=== PATIENT | male | born 1945 | race Caucasian/White ===

== ENCOUNTER 2016-08-31 11:01 | Inpatient (IN) | payer MEDICARE ==
[~2016-08-31] VITALS: Ht 165.1 cm; Wt 102.0 kg
[2016-08-31] VITALS (12 sets, daily range): BP systolic 98–155; BP diastolic 54–88; PULSE 94–105; RESP 18–24; TEMP 97.8–99.1; O2SAT 85–96
[~2016-08-31 11:01] MED LIST: ALBU1AER INH; CARB0.5D16 OU; CITA-48 PO; DOCU100T9 PO; ECOT325T PO; ENOX40P SQ; FISH1000 PO; GEMF600T PO; GLUCTAB PO; GLYB1TAB51 PO; HYDR1CAP30 PO; LEVO.05 PO; LISI-357 PO; LORT5TAB PO; NOVOLOGP2 SC; NOVONP2 SQ; OMEP20TA PO; PREG100 PO; RISP3 PO; TAB-TAB PO; TRAZ50TA4 PO; VITA400C58 PO
[2016-08-31] MEDS ORDERED: SODIUM CHLOR 0.9% 1000 ML INJ 1,000 ML IV ONE (11:15)
[2016-08-31] MEDS ORDERED: methylPREDNISolone SOD SUCC 125 MG/2 ML VIAL IVP ONE (11:15)
[2016-08-31 11:46] LABS: AUTOMATED NEUTROPHIL # 7.1 TH/MM3 (1.8-7.7); BASOPHIL % 0.4 % (0.0-2.0); EOSINOPHIL # 0.1 TH/MM3 (0-0.4); EOSINOPHIL % 0.6 % (0.0-4.0); HEMATOCRIT 34.7 % (39.0-51.0); LYMPH % 8.6 % (9.0-44.0); LYMPHOCYTE # 0.7 TH/MM3 (1.0-4.8); MEAN CELL VOLUME 83.9 FL (80.0-100.0); MEAN CORPUSCULAR HEMOGLOBIN 27.8 PG (27.0-34.0); MEAN CORPUSCULAR HGB CONC 33.2 % (32.0-36.0); MONO % 7.1 % (0.0-8.0); NEUT % 83.3 % (16.0-70.0); PLATELET COUNT 98 TH/MM3 (150-450); RED BLOOD COUNT 4.13 MIL/MM3 (4.50-5.90); RED CELL DISTRIBUTION WIDTH 16.4 % (11.6-17.2); WHITE BLOOD COUNT 8.5 TH/MM3 (4.0-11.0)
[2016-08-31 11:49] LABS: HEMO FLAGS AUTO DIFF
[2016-08-31] MEDS ORDERED: OMEP20CA2 (11:51)
[2016-08-31] MEDS ORDERED: MELO-1 PO (11:51)
[2016-08-31] MEDS ORDERED: CHOLCRY (11:51)
[2016-08-31] MEDS ORDERED: SERT-129 PO (11:51)
[2016-08-31] MEDS ORDERED: NOVONP2 SQ (11:51)
[2016-08-31] MEDS ORDERED: NOVOLOGP2 SQ (11:51)
[2016-08-31] MEDS ORDERED: ASPI-110 PO (11:51)
[2016-08-31] MEDS ORDERED: LYRI150C PO (11:51)
[2016-08-31] MEDS ORDERED: LEVO50TA4 PO (11:51)
[2016-08-31] MEDS ORDERED: BUSP10TA PO (11:51)
[2016-08-31] MEDS ORDERED: GLUC4CHW CHEW (11:51)
[2016-08-31] MEDS ORDERED: METF500T4 PO (11:51)
[2016-08-31] MEDS ORDERED: PRIM50TA5 PO (11:51)
[2016-08-31] MEDS ORDERED: DIAZ5TAB PO (11:51)
[2016-08-31] MEDS ORDERED: PRAV40TA2 PO (11:51)
[2016-08-31] MEDS ORDERED: LOSA50TA PO (11:51)
[2016-08-31] MEDS ORDERED: TRAZ100T4 PO (11:51)
[2016-08-31 11:56] LABS: APTT (PATIENT) 29.3 SEC (24.3-30.1); INTERNATIONAL NORMALIZED RATIO 1.1 RATIO
[2016-08-31 12:08] LABS: ALKALINE PHOSPHATASE 154 U/L (45-117); ALT (GPT) 35 U/L (12-78); ANION GAP 10 MEQ/L (5-15); AST (GOT) 54 U/L (15-37); BETA-HYDROXYBUTYRATE 0.13 MMOL/L (0.00-0.39); BICARBONATE 24.7 MEQ/L (21.0-32.0); BLOOD UREA NITROGEN 26 MG/DL (7-18); CHLORIDE 93 MEQ/L (98-107); CREATINE KINASE 126 U/L (39-308); GLOMERULAR FILTRATION RATE 54 ML/MIN (>89); POTASSIUM 4.9 MEQ/L (3.5-5.1); SODIUM (NA) 128 MEQ/L (136-145); TOTAL BILIRUBIN ADULT 0.7 MG/DL (0.2-1.0)
[2016-08-31] MEDS ORDERED: AZITHROMYCIN INJ 500 MG in SODIUM CHLOR 0.9% 250 ML INJ 250 ML IV STA (12:11)
[2016-08-31] MEDS ORDERED: CEFEPIME INJ 2,000 MG in SODIUM CHLORIDE 0.9% INJ 100 ML IV STA (12:11)
--- NOTE | 2016-08-31 12:13 | RADRPT ---
EXAM DATE/TIME: 08/31/2016 11:32 [place] COMPARISON: CHEST PA & LAT, June 28, 2012, 10:45. INDICATIONS : Short of breath MEDICAL HISTORY : Chronic obstructive pulmonary disease. leaking heart valve SURGICAL HISTORY : None. ENCOUNTER: Initial ACUITY: 1 day PAIN SCORE: Non-responsive. LOCATION: Bilateral chest FINDINGS: A single view of the chest demonstrates interstitial and patchy bibasilar alveolar opacities. Heart n ormal in size. The cardiomediastinal contours are unremarkable. Osseous structures are intact. CONCLUSION: Interstitial and bibasilar patchy alveolar opacities, could be pneumonia. Treatment and followup brandt mmended. Cameron Archer MD on August 31, 2016 at 12:10 Board Certified Radiologist. This report was verified electronically.
[2016-08-31 12:17] LABS: PLATELET ESTIMATE SMEAR LOW (NORMAL); PLATELET MORPHOLOGY NORMAL (NORMAL)
[2016-08-31 12:18] LABS: SCAN/DIFF AUTO DIFF CONFIRMED
--- NOTE | 2016-08-31 12:23 | PD ---
HPI Chief Complaint: Respiratory Distress Time Seen by Provider: 11:14 Travel History International Travel<30 days: No Contact w/Intl Traveler<30days: No Traveled to known affect area: No History of Present Illness HPI 71 y/o male presents with difficulty breathing over the past 5 days. He states it got worse today so he elected to come in. He states he does not wear oxygen at home. He states that he does have COPD but his breathing treatments have not helped him. He states that he had feelings of the fever last night but did not check his temperature. He denies other specific complaints. Quality is short of breath. Severity is progressively worsening. Duration is 5 days. His family is at bedside and help supplement history. He follows through the OR. [facility] Past Medical History Arthritis: Yes Anxiety: Yes Depression: Yes Heart Rhythm Problems: No Cancer: No Cardiovascular Problems: Yes High Cholesterol: Yes COPD: Yes Diabetes: Yes Patient Takes Glucophage: Yes Endocrine: Yes GERD: Yes Genitourinary: No Hypertension: Yes Immune Disorder: No Musculoskeletal: Yes Neurologic: Yes Psychiatric: Yes (CLAUSTROPHOBIA) Reproductive: No Respiratory: Yes Thyroid Disease: Yes Past Surgical History Joint Replacement: Yes (LAURA KNEES) Pacemaker: No Other Surgery: Yes Social History Alcohol Use: No Tobacco Use: No Substance Use: No Allergies-Medications (Allergen,Severity, Reaction): Coded Allergies: Niacin (Unverified Allergy, Severe, GENERALIZED BURNING AND ITCHING, ) Reported Meds & Prescriptions Reported Meds & Active Scripts Active Reported Trazodone (Trazodone HCl) 100 Mg Tab 100 Mg PO HS Sertraline (Sertraline HCl) 100 Mg Tab 100 Mg PO DAILY Primidone 50 Mg Tab 100 Mg PO TID Lyrica (Pregabalin) 150 Mg Cap 150 Mg PO BID Pravastatin 40 Mg Tab 40 Mg PO DAILY Omeprazole 20 Mg Cap Metformin ER (Metformin HCl) 500 Mg Jose Alfredo 500 Mg PO DAILY With evening meal Meloxicam 15 Mg Tab 15 Mg PO DAILY Losartan (Losartan Potassium) 50 Mg Tab 50 Mg PO DAILY Levothyroxine (Levothyroxine Sodium) 50 Mcg Tab 50 Mcg PO DAILY Novolog Inj (Insulin Aspart) 1,000 Unit/10 Ml Vial 5-25 Units SQ ACHS Max dose at bedtime:( )units; sugars less than 70,(0) units; sugars 150-199,(5) units; sugars 200-249,(10) units; sugars 250-299,(15) units; sugars 300-349,(20)units; sugars greater than 349,(25)units Novolin N Inj (Insulin Human NPH) 1,000 Unit/10 Ml Vial 0 SQ DIRECTED Sliding Scale As Directed. Glucose (Dextrose) 4 Gm Chew 4 Gm CHEW DIRECTED Cholecalciferol (Cholecalciferol (Bulk)) 1 Cry Cry Buspirone (Buspirone HCl) 10 Mg Tab 10 Mg PO BID Aspirin 81 (Aspirin) 81 Mg Tabdr 81 Mg PO DAILY Review of Systems Except as stated in HPI: all other systems reviewed are Neg Physical Exam Narrative GENERAL: Well-nourished, well-developed patient. SKIN: Warm and dry. HEAD: Normocephalic and atraumatic. EYES: No injection or drainage. ENT: No nasal drainage noted. NECK: Supple, trachea midline. CARDIOVASCULAR: Regular rate and rhythm RESPIRATORY: Decreased aeration bilaterally. No accessory muscle use. Talking in short sentences GASTROINTESTINAL: Abdomen soft, non-tender, nondistended. EXTREMITIES: No significant edema. NEUROLOGICAL: Awake and alert. Motor and sensory grossly within normal limits. Normal speech. Data Data Last Documented VS Vital Signs Date Time Temp Pulse Resp B/P Pulse Ox O2 Delivery O2 Flow Rate FiO2 08/31/16 12:40 96 Nasal Cannula 2.00 08/31/16 12:05 94 20 151/79 08/31/16 11:08 99.1 Orders Complete Blood Count With Diff (08/31/16 11:14) Comprehensive Metabolic Panel (08/31/16 11:14) B-Type Natriuretic Peptide (08/31/16 11:14) Act Partial Throm Time (Ptt) (08/31/16 11:14) Prothrombin Time / Inr (Pt) (08/31/16 11:14) Magnesium (Mg) (08/31/16 11:14) Ckmb (Isoenzyme) Profile (08/31/16 11:14) Troponin I (08/31/16 11:14) Influenzae A/B Antigen (08/31/16 11:14) Blood Culture (08/31/16 11:14) Iv Access Insert/Monitor (08/31/16 11:14) Electrocardiogram (08/31/16 11:14) Ecg Monitoring (08/31/16 11:14) Oximetry (08/31/16 11:14) Oxygen Administration (08/31/16 11:14) Chest, Single Ap (08/31/16 11:14) Sodium Chloride 0.9% Flush (Ns Flush) (08/31/16 11:15) Methylprednisolone So Succ Inj (Solumedr (08/31/16 11:15) Albuterol-Ipratropium Neb (Duoneb Neb) (08/31/16 11:15) Lactic Acid Sepsis Protocol (08/31/16 11:14) Sodium Chlor 0.9% 1000 Ml Inj (Ns 1000 M (08/31/16 11:15) Beta Hydroxybutyrate (Acetone) (08/31/16 11:14) Blood Glucose (08/31/16 11:14) Cefepime Inj (Maxipime Inj) (08/31/16 12:11) Azithromycin Inj (Zithromax Inj) (08/31/16 12:11) Urinalysis - C+S If Indicated (08/31/16 12:23) CKMB (08/31/16 11:24) CKMB% (08/31/16 11:24) Aspirin (Aspirin) (08/31/16 12:45) Heparin Infusion JARRED.Q1H (08/31/16 12:51) Heparin Inj (Heparin Inj) (08/31/16 13:00) Heparin Inj (Heparin Inj) (08/31/16 19:00) Heparin Inj (Heparin Inj) (08/31/16 19:00) Heparin-D5w Inj (Heparin-D5w Inj) (08/31/16 13:00) Cbc No Diff, Includes Plts (09/03/16 06:00) Act Partial Throm Time (Ptt) (08/31/16 19:51) Occult Blood (Hemoccult) Stool (08/31/16 12:51) Diet Npo (08/31/16 Lunch) Consult Cardiology (08/31/16 ) Admit Order (Ed Use Only) (08/31/16 13:11) Labs Laboratory Tests Test 08/31/16 11:24 White Blood Count 8.5 TH/MM3 Red Blood Count 4.13 MIL/MM3 Hemoglobin 11.5 GM/DL Hematocrit 34.7 % Mean Corpuscular Volume 83.9 FL Mean Corpuscular Hemoglobin 27.8 PG Mean Corpuscular Hemoglobin 33.2 % Concent Red Cell Distribution Width 16.4 % Platelet Count 98 TH/MM3 Mean Platelet Volume 9.1 FL Neutrophils (%) (Auto) 83.3 % Lymphocytes (%) (Auto) 8.6 % Monocytes (%) (Auto) 7.1 % Eosinophils (%) (Auto) 0.6 % Basophils (%) (Auto) 0.4 % Neutrophils # (Auto) 7.1 TH/MM3 Lymphocytes # (Auto) 0.7 TH/MM3 Monocytes # (Auto) 0.6 TH/MM3 Eosinophils # (Auto) 0.1 TH/MM3 Basophils # (Auto) 0.0 TH/MM3 CBC Comment AUTO DIFF Differential Comment AUTO DIFF CONFIRMED Platelet Estimate LOW Platelet Morphology Comment NORMAL Red Cell Morphology Comment NORMAL Prothrombin Time 12.0 SEC Prothromb Time International 1.1 RATIO Ratio Activated Partial 29.3 SEC Thromboplast Time Sodium Level 128 MEQ/L Potassium Level 4.9 MEQ/L Chloride Level 93 MEQ/L Carbon Dioxide Level 24.7 MEQ/L Anion Gap 10 MEQ/L Blood Urea Nitrogen 26 MG/DL Creatinine 1.32 MG/DL Estimat Glomerular Filtration 54 ML/MIN Rate Random Glucose 396 MG/DL Lactic Acid Level 3.6 mmol/L Calcium Level 8.8 MG/DL Magnesium Level 2.0 MG/DL Total Bilirubin 0.7 MG/DL Aspartate Amino Transf 54 U/L (AST/SGOT) Alanine Aminotransferase 35 U/L (ALT/SGPT) Alkaline Phosphatase 154 U/L Total Creatine Kinase 126 U/L Creatine Kinase MB 7.6 NG/ML Troponin I 1.40 NG/ML B-Type Natriuretic Peptide 551 PG/ML Total Protein 6.8 GM/DL Albumin 2.6 GM/DL B-Hydroxybutyrate 0.13 MMOL/L [facility] Medical Decision Making Medical Screen Exam Complete: Yes Emergency Medical Condition: Yes Medical Record Reviewed: Yes (past history confirmed) Interpretation(s) EKG shows mild elevation V2 without reciprocal changes or T-wave inversions CBC & BMP Diagram 08/31/16 11:24 Last 24 hours Impressions Chest X-Ray 08/31/16 1114 Signed Impressions: Service Date/Time: Wednesday, August 31, 2016 11:32 - CONCLUSION: Interstitial and bibasilar patchy alveolar opacities, could be pneumonia. Treatment and followup recommended. Cameron Archer MD Differential Diagnosis COPD exacerbation, sepsis, pneumonia, IA, PE, pneumothorax.... Narrative Course Will check blood work, chest x-ray, influenza and dose with DuoNeb's and Solu- Medrol and IV fluid hydration and reevaluate Lactate is elevated at 3.6. We'll initiate broad-spectrum coverage with cefepime and azithromycin for possible respiratory source while awaiting testing Went back in and updated family and patient about elevated troponin. Again he denies any chest pressure or chest pain today or during his symptoms over the past for 5 days. His states that he had a cardiac catheterization 2-1/2 years ago at [place] that was normal other than he needs a aortic valve replacement. They followed with Dr. malik but given he was not symptomatic they elected to monitor it, will dose with aspirin and discuss with cardiology patient agrees to admit Sepsis Criteria SIRS Criteria (2 or more): Heart rate over 90 Sepsis Criteria (SIRS+source): Infect source susp/known Severe Sepsis (+one): Lactate >2 Physician Communication Physician Communication dr rios reviewed ekg at 1247 and states given isolated in V2 without reciprocal changes or chest pain currently no STEMI criteria. Given troponin is elevated he likely will need catheter but not emergent. States to place on heparin and keep nothing by mouth and will follow resident team agrees to cic admit Diagnosis Primary Impression: NSTEMI (non-ST elevated myocardial infarction) Additional Impressions: Lactic acidosis Pneumonia Qualified Code: J18.9 - Pneumonia of both lungs due to infectious organism, unspecified part of lung Thrombocytopenia Hyponatremia Diabetes Qualified Code: E13.8 - Diabetes mellitus of other type with complication, unspecified long-term insulin use status Admitting Information Admitting Physician Requests: it Makenzie Hammond MD Aug 31, 2016 12:23
[2016-08-31 12:38] LABS: CKMB 7.6 NG/ML (0.5-3.6)
[2016-08-31] MEDS: RESP: ALBUTEROL 2.5 MG/IPRATROPIUM 0.5 MG NEB (SCH) INH (12:39)
[2016-08-31] MEDS ORDERED: ASPIRIN 325 MG TAB PO ONE (12:45)
[2016-08-31] MEDS ORDERED: HEPARIN-D5W INJ 250 ML IV SCH (13:00)
[2016-08-31] MEDS ORDERED: HEPARIN SODIUM - IV 10,000 UNITS/10 ML VIAL IV ONE (13:00)
[2016-08-31 13:29] LABS: LACTIC ACID GHOST NOT REPORTABLE
[2016-08-31] MEDS ORDERED: hydrALAZINE HCL 10 MG TAB PO PRN (13:45)
[2016-08-31] MEDS ORDERED: RESP: ALBUTEROL 2.5 MG/3 ML NEB (PRN) NEB (13:45)
[2016-08-31] MEDS ORDERED: ONDANSETRON HCL 4 MG/2 ML VIAL IV PRN (13:45)
--- NOTE | 2016-08-31 13:57 | HHI.HP ---
[facility] Service Family Medicine Primary Care Physician Non-Staff Admission Diagnosis nstemi, lactic acidosis Diagnoses: International Travel<30 Days: No Contact w/Intl Traveler<30days: No Known Affected Area: No History of Present Illness Mr. Gudino is a 71 year old male with a past medical history of hypertension , aortic valvular disease, anxiety, depression, and BPH that presents to the [place] ED with a chief complaint of shortness of breath of 5 days duration. The patient's and daughter were in the room and corroborated the history. The patient states that he felt very weak and could barely walk to the bathroom because he was so short of breath. He states that he also felt very hot, but did not measure his temperature at home. His gave him some old inhalers on Sunday 08/27, some Xanax on Monday 08/28, and some old diazepam medications every 4-5 hours, which calmed him down such that he was able to sleep. He finally agreed to come into the hospital today because he felt really short of breath. Associated symptoms include subjective fever, and cough which was nonproductive until Tuesday. He has also had a constant dry throat and some sweating but not at night. He denies chest pain, chills, headache, nausea, vomiting, diarrhea, and abdominal pain. His appetite has been poor since Tuesday and he has not eaten much. He has also had some muscle aches in his shoulders bilaterally. Patient denies any sick contacts and he did get the flu shot. (Rupali Eddy MD R1) Review of Systems Constitutional: DENIES: Diaphoretic episodes, Fever, Chills Ears, nose, mouth, throat: DENIES: Nasal discharge Respiratory: DENIES: Cough (nonproductive) Cardiovascular: DENIES: Chest pain Gastrointestinal: DENIES: Abdominal pain, Diarrhea, Nausea, Vomiting Genitourinary: DENIES: Dysuria Musculoskeletal: COMPLAINS OF: Muscle aches (shoulder pain) Integumentary: DENIES: Rash Neurologic: DENIES: Headache (Rupali Eddy MD R1) Past Family Social History Past Medical History -Hypertension -Diabetes -Aortic valvular disease -Anxiety and depression -BPH Past Surgical History -Bilateral knee surgery (Rupali Eddy MD R1) Allergies: Coded Allergies: Niacin (Unverified Allergy, Severe, GENERALIZED BURNING AND ITCHING, ) Family History Non-contributory Social History Denies smoking, alcohol, and drug use (Eko,Rupali U R1) Physical Exam Vital Signs Vital Signs Date Time Temp Pulse Resp B/P Pulse Ox O2 Delivery O2 Flow Rate FiO2 08/31/16 13:41 105 20 118/59 92 Nasal Cannula 3 08/31/16 12:40 96 Nasal Cannula 2.00 08/31/16 12:05 94 20 151/79 92 Nasal Cannula 2 08/31/16 11:18 93 Nasal Cannula 3 08/31/16 11:18 97 20 151/79 93 Nasal Cannula 3 08/31/16 11:12 91 3 08/31/16 11:08 99.1 101 20 100/62 93 08/31/16 11:04 98.7 100 20 98/54 85 Physical Exam GENERAL: This is a well-nourished, well-developed patient, in no apparent distress. SKIN: No rashes, ecchymoses or lesions. Cool and dry. Bilateral knee surgery scars HEAD: Atraumatic. Normocephalic. No temporal or scalp tenderness. EYES: Pupils equal round and reactive. Extraocular motions intact. No scleral icterus. No injection or drainage. ENT: Nose without bleeding, purulent drainage or septal hematoma. Throat without erythema, tonsillar hypertrophy or exudate. Uvula midline. Airway patent. Continuous lip smacking NECK: Trachea midline. No JVD or lymphadenopathy. Supple, nontender, no meningeal signs. CARDIOVASCULAR: Regular rate and rhythm, distant heart sounds RESPIRATORY: Clear to auscultation. Coarse breath sounds in bibasilar lung gallardo. Some mild wheezing in the anterior air gallardo GASTROINTESTINAL: Abdomen soft, obese, non-tender, nondistended. No guarding. MUSCULOSKELETAL: Extremities without clubbing, cyanosis, or edema. No joint tenderness, effusion, or edema noted. No calf tenderness. NEUROLOGICAL: Awake and alert. Cranial nerves grossly intact. Resting tremor, continuously moves left arm. Motor and sensory grossly within normal limits. Five out of 5 muscle strength in all muscle groups. Normal speech. Laboratory Laboratory Tests Test 08/31/16 11:24 White Blood Count 8.5 Red Blood Count 4.13 Hemoglobin 11.5 Hematocrit 34.7 Mean Corpuscular Volume 83.9 Mean Corpuscular Hemoglobin 27.8 Mean Corpuscular Hemoglobin 33.2 Concent Red Cell Distribution Width 16.4 Platelet Count 98 Mean Platelet Volume 9.1 Neutrophils (%) (Auto) 83.3 Lymphocytes (%) (Auto) 8.6 Monocytes (%) (Auto) 7.1 Eosinophils (%) (Auto) 0.6 Basophils (%) (Auto) 0.4 Neutrophils # (Auto) 7.1 Lymphocytes # (Auto) 0.7 Monocytes # (Auto) 0.6 Eosinophils # (Auto) 0.1 Basophils # (Auto) 0.0 CBC Comment AUTO DIFF Differential Comment AUTO DIFF CONFIRMED Platelet Estimate LOW Platelet Morphology Comment NORMAL Red Cell Morphology Comment NORMAL Prothrombin Time 12.0 Prothromb Time International 1.1 Ratio Activated Partial 29.3 Thromboplast Time Sodium Level 128 Potassium Level 4.9 Chloride Level 93 Carbon Dioxide Level 24.7 Anion Gap 10 Blood Urea Nitrogen 26 Creatinine 1.32 Estimat Glomerular Filtration 54 Rate Random Glucose 396 Lactic Acid Level 3.6 Calcium Level 8.8 Magnesium Level 2.0 Total Bilirubin 0.7 Aspartate Amino Transf 54 (AST/SGOT) Alanine Aminotransferase 35 (ALT/SGPT) Alkaline Phosphatase 154 Total Creatine Kinase 126 Creatine Kinase MB 7.6 Troponin I 1.40 B-Type Natriuretic Peptide 551 Total Protein 6.8 Albumin 2.6 B-Hydroxybutyrate 0.13 Date/Time Procedure Status Source Growth 08/31/16 11:30 Aerobic Blood Culture Received Blood Peripheral Pending 08/31/16 11:30 Anaerobic Blood Culture Received Blood Peripheral Pending 08/31/16 11:24 Influenza Types A,B Antigen (CASSIDY) - Final Complete Nasal Aspirate NEGATIVE FOR FLU A AND B ANTIGEN.... (Rupali Eddy MD R1) Result Diagram: 08/31/16 1124 08/31/16 1124 Imaging Last Impressions Chest X-Ray 08/31/16 1114 Signed Impressions: Service Date/Time: Wednesday, August 31, 2016 11:32 - CONCLUSION: Interstitial and bibasilar patchy alveolar opacities, could be pneumonia. Treatment and followup recommended. Cameron Archer MD Course Patient received 1 L normal saline bolus, 1 dose of IV Solu-Medrol, one dose of cefotaxime IV and one dose of azithromycin IV in the ED. Chest x-ray was performed. EKG was performed with troponin. Due to elevated troponin, cardiology was consulted. (Rupali Eddy MD R1) Septic Shock Reassessment Heart: Regular rate and rhythm Lungs: Clear Skin: Warm (Rupali Eddy MD R1) Assessment and Plan Assessment and Plan Patient is a 71-year-old male that presents with a 5 day history of shortness of breath and nonproductive cough. Differential diagnosis includes ACS, CHF exacerbation, and COPD exacerbation, sepsis. ACS rule out was performed in the ED and patient was found to have elevated troponin of 1.4 and elevated lactate of 3.6. Cardiology was consulted with recommendations to start him on heparin drip and keep him nothing by mouth for possible procedure in the a.m. Patient will be admitted to the [facility] where ACS rule out will be continued and patient will be treated with IV antibiotics. Code Status Full code Discussed Condition With Seen and examined with Dr. Perry, PGY 2. Discussed with Dr. Harris (Rupali Eddy MD R1) Attending Attestation The patient has been seen and examined. The chart and all resident notes have been reviewed. I agree that inpatient care is appropriate and that a two midnight stay is expected for the reasons documented in the resident history and physical. I have discussed this with the resident and certify the resident s order for inpatient admission. (She Harris MD) Problem List: (1) NSTEMI (non-ST elevated myocardial infarction) Status: Acute Plan: -EKG shows low voltage ST elevation in leads V1 and V2, with inverted T waves in aVL -Suspect demand ischemia in the setting of severe sepsis -We will trend EKG every 6 hours 2 -Troponin elevated at 1.40, will trend every 6 hours 2 -[facility], Dr. rios, I reviewed EKG at 1247 and states given isolated elevation in V2 without reciprocal changes or chest pain, currently no STEMI criteria. -Recommended to keep him nothing by mouth and trend troponins. Given that the troponin is elevated, he will most likely need heart catheterization but not emergently. -Patient is currently on a heparin drip -Nothing by mouth except meds -We will start low-dose carvedilol 3.125 mg PO in the a.m. -Continue pravastatin 40 mg by mouth daily -Nitroglycerin topical every 6 hours when necessary chest pain (2) Severe sepsis Status: Acute Plan: -Patient meets severe sepsis criteria with elevated lactic acid at 3.6 and pneumonia as a possible source -WBC not elevated at 8.5, afebrile on admission, pulse elevated at 100, O2 saturation 85% on room air -Chest x-ray shows inspissation and bibasilar patchy alveolar opacities, could be pneumonia -Activated the lactic acid protocol -Rocephin 1 g mg IV every 24 hours to start on 09/01, received one dose of cefepime today 08/31 -Azithromycin 500 mg by mouth every 24 hours to start on 09/01, received one dose of azithromycin 500 mg IV today 08/31 -NS @ 70 mls/hr -less than maintenance due to possible exacerbation of congestive heart failure -Blood cultures pending -Legionella and pneumococcal antigen pending (3) Pneumonia Status: Acute Plan: -Chest x-ray shows inspissation and bibasilar patchy alveolar opacities, could be pneumonia -Rocephin 1 g IV every 24 hours to start on 09/01, received one dose of cefepime today 08/31 -Azithromycin 500 mg by mouth every 24 hours to start on 09/01, received one dose of azithromycin 500 mg IV today 08/31 -Patient received 125 mg IV push methylprednisolone in the ED -We will continue methylprednisolone at 40 mg IV every 12 hours 3 doses -Switch to prednisone 40 mg by mouth daily on 09/02 -Legionella and pneumococcal antigen pending (4) CHF due to valvular disease Status: Acute Plan: -Patient reports history of aortic valvular disease that requires replacement -Patient delayed valvular replacements because did not want to deal with the [place] [facility] system -Cardiology consulted - will wait for recommendations regarding echo (5) PHILIPPE (acute kidney injury) Status: Acute (6) Diabetes Status: Acute Plan: -Patient uses NPH insulin at home -Blood glucose elevated at approximately 400 on admission -Will start patient on low NovoLog sliding scale insulin with Levemir long- acting insulin (7) COPD exacerbation Status: Acute Plan: -Patient reports [id number] history of smoking -Considering patient's shortness of breath, COPD exacerbation may complicate the picture -Albuterol nebulizer 2.5 mg every 4 hours scheduled for shortness of breath (8) Hyponatremia Status: Acute Plan: -Suspect hypovolemic hyponatremia -On fluids as above, will monitor (9) Hypertension Status: Acute Plan: -Last BP measured at 1341 on 1341 was 118/59 -Hold losartan 50 mg by mouth daily (10) Thrombocytopenia Status: Acute Plan: -Platelets 98 on admission, will monitor (11) Anxiety and depression Status: Acute Plan: -Continue home medications as follows: -Trazodone 100 mg by mouth daily -Sertraline 100 mg by mouth daily (12) BPH (benign prostatic hyperplasia) Status: Acute Plan: -History of BPH -Patient states history of using Flomax but not on current list of medications -Will consider starting Flomax if patient has symptoms (13) FEN/DVT PPX/GI PPX Status: Acute Plan: Fluids: NS @ 70 mls/hr Electrolytes: Will monitor and replace as needed Nutrition: Nothing by mouth except for meds pending possible cardiology procedure area DVT Prophylaxis: On heparin drip GI Prophylaxis: Protonix IV 40 mg daily AM Labs: CBC, CMP in the a.m. (Rupali Eddy MD R1) Physician Certification 2 Midnight Certification Type: Admission for Inpatient Services Order for Inpatient Services The services are ordered in accordance with Medicare regulations or non- Medicare payer requirements, as applicable. In the case of services not specified as inpatient-only, they are appropriately provided as inpatient services in accordance with the 2-midnight benchmark. Estimated LOS (days): 3 days is the estimated time the patient will need to remain in the hospital, assuming treatment plan goals are met and no additional complications. 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
[2016-08-31] MEDS ORDERED: GLUCAGON 1 MG/ML VIAL OTHER PRN (14:00)
[2016-08-31 14:02] LABS: BACTERIA, URINE OCC /hpf; BLOOD, URINE TRACE (NEG); GLUCOSE,URINE 1000 mg/dL (NEG); HYALINE CAST, URINE 12 /lpf (RARE); KETONE, URINE NEG (NEG); MUCUS URINE FEW /lpf (OCC); NITRITE,URINE NEG (NEG); SQUAMOUS EPITHELIAL CELL URINE <1 /hpf (0-5); TRANSITIONAL EPI CELLS, URINE <1 /hpf; URINE COLOR YELLOW (YELLW/STRAW)
[2016-08-31 14:04] LABS: COMMENT (UR) CULT NOT INDICATED; CULTURE IF INDICATED CULT NOT INDICATED
[2016-08-31] MEDS: SODIUM CHLOR 0.9% 1000 ML INJ 1,000 ML IV SCH (14:51)
[2016-08-31] MEDS ORDERED: NITROGLYCERIN 2% OINT 1 GM PACKET TOPICAL PRN (15:00)
--- NOTE | 2016-08-31 17:14 | MB ---
cc: SHARIFA HERNANDEZ MD DATE OF CONSULTATION 08/31/16 INDICATION [id number] CA. HISTORY OF PRESENT ILLNESS A 71-year-old gentleman who has no prior history of known heart disease, although he does say he has prior history of valvular heart disease. He presents to the emergency department with five day progressive symptoms of progressive shortness of breath and nonproductive cough. His lactic acid was mildly elevated and chest x-ray suggested possible pneumonia. His O2 sat was 85% on room air and he is slightly tachycardic. He was given IV antibiotics troponins drawn. His first troponin was mildly elevated at 1.40. Electrocardiogram showed no significant ischemic changes. He denies any myrna chest pain. He has had a prior heart catheterization at the [facility] in which he reports that, although he did not have any intervention done, he was told his aortic valve "needed replacement". We were consulted for further recommendations. He was started on heparin drip and he is currently chest pain free. LABORATORY DATA 1. Claustrophobia 2. Gastroesophageal reflux disease, 3. Diabetes, 4. COPD, 5. Hyperlipidemia, 6. Depression, anxiety, 7. Arthritis. ALLERGIES NIACIN MEDICATIONS Reported, 1. Trazodone 2. Sertraline 3. 4. Lyrica 5. Pravastatin 6. Metformin. 7. Meloxicam 8. Losartan 9. Levothyroxine. 10. NovoLog insulin 11. Buspirone 12. Aspirin. REVIEW OF SYSTEMS 12-point review of systems was performed, negative unless otherwise noted is history of present illness. SOCIAL HISTORY Denies any alcohol, tobacco or drug use. FAMILY HISTORY Denies any family history of early coronary artery disease and cardiac . PHYSICAL EXAMINATION VITAL SIGNS: Temperature 99, pulse 105, blood pressure 118/59 mmHg. GENERAL: Alert and oriented x3 in no acute distress. HEENT: Pupils reactive to light and accommodation, extraocular movements are intact. No elevation in jugular venous distension. No thyromegaly or lymphadenopathy. No carotid bruits. LUNGS: Clear to auscultation bilaterally. CARDIAC: Regular rate and rhythm, 2/6 systolic murmur left sternal border. ABDOMEN: Nontender, nondistended. Good bowel sounds. No hepatosplenomegaly. EXTREMITIES: No clubbing, cyanosis or edema. Good peripheral pulses. NEUROLOGIC: Cranial nerves intact. Motor sensory grossly intact. LABORATORY DATA WBC 8.5, hemoglobin 11.5, platelet count is 98, INR is 1.1. Sodium 128, potassium 4.9, chloride 93, BUN is 26, creatinine is 1.32, BNP 551 CARDIOLOGY STUDIES Electrocardiogram shows sinus rhythm, left atrial enlargement, nonspecific ST-T wave changes. ASSESSMENT 1. Shortness of breath. 2. Pneumonia. 3. [id number] CA. 4. Renal insufficiency. 5. Diabetes, 6. Hypertension, 7. Hyperlipidemia. 8. Aortic valve disease. PLAN The patient's troponin is mildly elevated. He does have history of apparent aortic valve procedures in addition to Renal insufficiency. Based on his labs it does look like he is slightly dehydrated. His chest x-ray is more consistent with infection and congestive heart failure. I agree with gentle hydration but should be monitor closely for any drop in oxygen saturation. I would like to get a 2-D echocardiogram to evaluate ejection fraction and aortic valve disease. We will see what the troponin trends. His total creatinine kinase is elevated. Also, we will see if we can obtain any records from a visit with Dr. Mary regarding his aortic valve. After he makes a meaningful recovery, we will probably consider cardiac catheterization. He might need a day or two to recover. I do not want to take him to the medical lab assistant until he is maintaining good saturations recovered from the infectious process. We will follow. MD CUCO Avila/ /4:33 PM /4:58 PM ROSIO
--- NOTE | 2016-08-31 17:16 | HHI.FPPN ---
Subjective Subjective Patient seen and examined. Case reviewed and discussed Please refer to resident H&P for further details regarding HPI, ROS, PMH, SurgHx , FH and SocHx In summary, patient is a 71yoM who is followed at the [facility] presenting accompanied by his with a several day history of progressively worsening shortness of breath. Per history obtained from the patient and his , he has had a non-productive cough and subjective fever at home prior to admission x 5 days. He notes his shortness of breath to be particularly bad with exertion. Sats noted to be in the 80s upon arrival to the ED. He is seen in his hospital room, denies any chest pain, reports he is feeling slightly better than admission. [facility] Objective Objective Last Impressions Chest X-Ray 08/31/16 1114 Signed Impressions: Service Date/Time: Wednesday, August 31, 2016 11:32 - CONCLUSION: Interstitial and bibasilar patchy alveolar opacities, could be pneumonia. Treatment and followup recommended. Cameron Archer MD Laboratory Tests - Abnormals Test 08/31/16 08/31/16 11:24 13:47 Red Blood Count 4.13 MIL/MM3 Hemoglobin 11.5 GM/DL Hematocrit 34.7 % Platelet Count 98 TH/MM3 Neutrophils (%) (Auto) 83.3 % Lymphocytes (%) (Auto) 8.6 % Lymphocytes # (Auto) 0.7 TH/MM3 Platelet Estimate LOW Prothrombin Time 12.0 SEC Sodium Level 128 MEQ/L Chloride Level 93 MEQ/L Blood Urea Nitrogen 26 MG/DL Creatinine 1.32 MG/DL Estimat Glomerular Filtration 54 ML/MIN Rate Random Glucose 396 MG/DL Lactic Acid Level 3.6 mmol/L Aspartate Amino Transf 54 U/L (AST/SGOT) Alkaline Phosphatase 154 U/L Creatine Kinase MB 7.6 NG/ML Troponin I 1.40 NG/ML B-Type Natriuretic Peptide 551 PG/ML Albumin 2.6 GM/DL Urine Protein 100 mg/dL Urine Glucose (UA) 1000 mg/dL Urine Occult Blood TRACE Urine Leukocyte Esterase TRACE Urine RBC 4 /hpf Urine WBC 6 /hpf Urine Bacteria OCC /hpf Urine Mucus FEW /lpf Vital Signs 08/31/16 08/31/16 08/31/16 08/31/16 11:04 11:08 11:12 11:18 Temp 98.7 99.1 Pulse 100 101 97 Resp 20 20 20 B/P 98/54 100/62 151/79 Pulse Ox 85 93 91 93 O2 Delivery Nasal Cannula O2 Flow Rate 3 3 08/31/16 08/31/16 08/31/16 08/31/16 11:18 12:05 12:40 13:41 Pulse 94 105 Resp 20 20 B/P 151/79 118/59 Pulse Ox 93 92 96 92 O2 Delivery Nasal Cannula Nasal Cannula Nasal Cannula Nasal Cannula O2 Flow Rate 3 2 2.00 3 Physical exam GENERAL: Elderly male, sitting up in bed, NAD SKIN: Warm and dry. No rashes or lesions HEAD: Normocephalic. AT EYES: No scleral icterus. No injection or drainage. ENT: OP clear. MM slightly dry. NC in place. NECK: Supple, trachea midline. No JVD or lymphadenopathy. CARDIOVASCULAR: Regular rate and rhythm with audible 2/6 STEVE @LSB without gallops or rubs. RESPIRATORY: Breath sounds with mild bibasilar crackles. No accessory muscle use. GASTROINTESTINAL: Abdomen soft, non-tender, nondistended. Normal active BS. No rebound. MUSCULOSKELETAL: No cyanosis, or edema. No calf tenderness. BACK: Nontender without obvious deformity. No CVA tenderness. NEURO: Awake and alert. Normal speech. CN grossly intact. MAEW Assessment Assessment 71yoM admitted with: Severe sepsis by definition due to CAP NSTEMI Hypoxia HTN DM, poorly controlled Anxiety/depression Aortic Valve Disease Acute renal insufficiency COPD GERD PLAN PLAN Empiric antibiotic therapy with Rocephin, Azithro Sputum culture Legionella, strep, flu antigens Supplemental oxygen as needed Appreciate cardiology recs 2D echo Light IVF, caution given resp status Heparin gtt initiated in ED Resume home meds as appropriate Basal insulin with SSI as needed Accu-checks Patient seen and examined. Case reviewed and discussed Agree with plan of care as discussed with me and documented in the resident note. She Harris MD Aug 31, 2016 17:16
[2016-08-31] MEDS: INSULIN ASPART SUPPLEMENTAL SCALE SQ SCH ×2 (17:22→21:00)
[2016-08-31] MEDS: PRIMIDONE 50 MG TAB PO SCH (17:53)
[2016-08-31 17:58] LABS: APTT (PATIENT) 28.8 SEC (24.3-30.1)
[2016-08-31] MEDS ORDERED: HEPARIN SODIUM - IV 10,000 UNITS/10 ML VIAL IV PRN ×2 (19:00)
[2016-08-31] MEDS: PREGABALIN 75 MG CAP PO SCH (22:47)
[2016-08-31] MEDS: traZODone HCL 100 MG TAB PO SCH (22:47)
[2016-08-31] MEDS: busPIRone HCL 10 MG TAB PO SCH (22:47)
[2016-08-31] MEDS: methylPREDNISolone SOD SUCC 40 MG/1 ML VIAL IV SCH (22:47)
[2016-09-01] VITALS (25 sets, daily range): BP systolic 134–157; BP diastolic 80–90; PULSE 72–120; RESP 22–24; TEMP 98–98.4; O2SAT 90–96
[2016-09-01 00:09] LABS: APTT (PATIENT) 29.8 SEC (24.3-30.1)
[2016-09-01 00:34] LABS: ALT (GPT) 35 U/L (12-78); ANION GAP 8 MEQ/L (5-15); AST (GOT) 34 U/L (15-37); BLOOD UREA NITROGEN 25 MG/DL (7-18); CHLORIDE 93 MEQ/L (98-107); GLOMERULAR FILTRATION RATE 68 ML/MIN (>89); POTASSIUM 5.4 MEQ/L (3.5-5.1); SODIUM (NA) 125 MEQ/L (136-145)
[2016-09-01 00:38] LABS: ALKALINE PHOSPHATASE 140 U/L (45-117); TOTAL BILIRUBIN ADULT 0.6 MG/DL (0.2-1.0)
[2016-09-01] MEDS ORDERED: HALOPERIDOL LACTATE 5 MG/ML AMP IM ONE (01:45)
[2016-09-01] MEDS: SODIUM CHLOR 0.9% 1000 ML INJ 1,000 ML IV SCH (04:48)
[2016-09-01] MEDS: LEVOTHYROXINE SODIUM 50 MCG TAB PO SCH (05:20)
[2016-09-01] MEDS ORDERED: INSULIN DETEMIR 100 UNITS/ML VIAL SQ SCH ×4 (06:30→21:00)
[2016-09-01 06:51] LABS: AUTOMATED NEUTROPHIL # 7.4 TH/MM3 (1.8-7.7); BASOPHIL % 0.1 % (0.0-2.0); EOSINOPHIL % 0.1 % (0.0-4.0); HEMATOCRIT 31.3 % (39.0-51.0); HEMO FLAGS DIFF FINAL; LYMPH % 5.4 % (9.0-44.0); LYMPHOCYTE # 0.5 TH/MM3 (1.0-4.8); MEAN CELL VOLUME 83.4 FL (80.0-100.0); MEAN CORPUSCULAR HEMOGLOBIN 27.9 PG (27.0-34.0); MEAN CORPUSCULAR HGB CONC 33.5 % (32.0-36.0); MONO % 6.6 % (0.0-8.0); NEUT % 87.8 % (16.0-70.0); PLATELET COUNT 105 TH/MM3 (150-450); RED BLOOD COUNT 3.76 MIL/MM3 (4.50-5.90); RED CELL DISTRIBUTION WIDTH 16.4 % (11.6-17.2); WHITE BLOOD COUNT 8.5 TH/MM3 (4.0-11.0)
[2016-09-01 06:57] LABS: APTT (PATIENT) 28.1 SEC (24.3-30.1)
[2016-09-01] MEDS: INSULIN ASPART SUPPLEMENTAL SCALE SQ SCH ×4 (07:00→20:41)
--- NOTE | 2016-09-01 07:31 | PD.CARD.PN ---
Subjective Subjective Remarks couple coughing spells last night but improved breathing no CP Objective Medications Active Medications Albuterol/ Ipratropium 1 ampule 1 ampule Q15M INH Last administered on 12:39; Admin Dose 1 AMPULE; Start 08/31/16 at 11:15; Stop 08/31/16 at 11:31 ; Status DC Aspirin (Aspirin) 325 mg DAILY PO; Start 09/01/16 at 09:00 Aspirin (Aspirin) 325 mg ONCE ONCE PO Last administered on 08/31/16 12:35; Admin Dose 325 MG; Start 08/31/16 at 12:45; Stop 08/31/16 at 12:46; Status DC Azithromycin 500 mg 500 mg Q24H PO; Start 09/01/16 at 12:00 Buspirone HCl (Buspar) 10 mg BID PO Last administered on 08/31/16 22:47; Admin Dose 10 MG; Start 08/31/16 at 21:00 Carvedilol (Coreg) 3.125 mg Q12HR PO; Start 09/01/16 at 09:00 Ceftriaxone Sodium/Sodium Chloride (Rocephin Inj/NS Inj) 100 ml @ 200 mls/hr Q24H IV; Start 09/01/16 at 09:00 Dextrose (D50w (Vial) Inj) 25 ml UNSCH PRN IV PUSH; Start 08/31/16 at 14:00 Glucagon (Glucagon Inj) 1 mg UNSCH PRN OTHER; Start 08/31/16 at 14:00 Haloperidol Lactate (Haldol Inj) 2 mg ONCE ONCE IM; Start 09/01/16 at 01:45; Stop 09/01/16 at 01:50; Status DC Heparin Sodium (Porcine) (Heparin Inj) 4,000 units ONCE ONCE IV Last administered on 08/31/16 13:14; Admin Dose 4,000 UNITS; Start 08/31/16 at 13:00 ; Stop 08/31/16 at 13:01; Status DC Heparin Sodium (Porcine) (Heparin Inj) 5,000 units UNSCH PRN IV; Start at 19:00 Heparin Sodium (Porcine) 2500 units 2,500 units UNSCH PRN IV Last administered on 09/01/16 01:58; Admin Dose 2,500 UNITS; Start 08/31/16 at 19:00 Heparin Sodium/ Dextrose (Heparin-D5W Inj) 250 ml @ 0 mls/hr TITRATE IV Last administered on 08/31/16 13:34; Admin Dose 0 MLS/HR; Start 08/31/16 at 13:00 Hydralazine HCl (Apresoline) 10 mg Q6H PRN PO; Start 08/31/16 at 13:45 Insulin Detemir (Levemir Inj) 5 units Q12HR SQ; Start 09/01/16 at 06:30; Stop at 06:31; Status DC Insulin Detemir (Levemir Inj) 9 units Q12HR SQ; Start 09/01/16 at 09:00; Stop at 09:00; Status DC Insulin Detemir (Levemir Inj) 9 units Q12HR SQ; Start 09/01/16 at 09:00 Insulin Detemir (Levemir Inj) 12 units HS SQ; Start 09/01/16 at 21:00; Stop at 21:00; Status DC IV Flush (NS Flush) 2 ml UNSCH PRN IVF; Start 08/31/16 at 11:15 Levothyroxine Sodium (Synthroid) 50 mcg DAILY@06 PO Last administered on 05:20; Admin Dose 50 MCG; Start 09/01/16 at 06:00 Losartan Potassium (Cozaar) 50 mg DAILY PO; Start 09/01/16 at 09:00; Status Future Hold Methylprednisolone Sodium Succinate (SoluMEDROL INJ) 40 mg Q12HR IV Last administered on 08/31/16 22:47; Admin Dose 40 MG; Start 08/31/16 at 21:00; Stop 09/01/16 at 21:01 Methylprednisolone Sodium Succinate (SoluMEDROL INJ) 125 mg ONCE ONCE IVP Last administered on 08/31/16 11:33; Admin Dose 125 MG; Start 08/31/16 at 11:15; Stop 08/31/16 at 11:17; Status DC Nitroglycerin 0.5 inch 0.5 inch Q6H PRN TOPICAL; Start 08/31/16 at 15:00 Ondansetron HCl (Zofran Inj) 4 mg Q6H PRN IV; Start 08/31/16 at 13:45 Pravastatin Sodium (Pravachol) 40 mg DAILY PO; Start 09/01/16 at 09:00 Prednisone (Deltasone) 50 mg DAILY PO; Start 09/02/16 at 09:00 Pregabalin (Lyrica) 150 mg BID PO Last administered on 08/31/16 22:47; Admin Dose 150 MG; Start 08/31/16 at 21:00 Primidone (Mysoline) 100 mg TID PO Last administered on 08/31/16 17:53; Admin Dose 100 MG; Start 08/31/16 at 18:00 Sertraline HCl (Zoloft) 100 mg DAILY PO; Start 09/01/16 at 09:00 Sodium Chloride (NS 1000 ml Inj) 1,000 ml @ 70 mls/hr [id number] IV Last administered on 08/31/16 14:51; Admin Dose 70 MLS/HR; Start 08/31/16 at 14:30 Sodium Chloride (NS 1000 ml Inj) 1,000 ml @ 999 mls/hr BOLUS ONCE IV Last administered on 08/31/16 11:33; Admin Dose 999 MLS/HR; Start 08/31/16 at 11:15 ; Stop 08/31/16 at 12:15; Status DC Trazodone HCl (Desyrel) 100 mg HS PO Last administered on 08/31/16 22:47; Admin Dose 100 MG; Start 08/31/16 at 21:00 Vital Signs / I&O Vital Signs Date Time Temp Pulse Resp B/P Pulse Ox O2 Delivery O2 Flow Rate FiO2 08/31/16 16:30 98.4 99 18 137/72 95 08/31/16 13:41 105 20 118/59 92 Nasal Cannula 3 08/31/16 12:40 96 Nasal Cannula 2.00 08/31/16 12:05 94 20 151/79 92 Nasal Cannula 2 08/31/16 11:18 93 Nasal Cannula 3 08/31/16 11:18 97 20 151/79 93 Nasal Cannula 3 08/31/16 11:12 91 3 08/31/16 11:08 99.1 101 20 100/62 93 08/31/16 11:04 98.7 100 20 98/54 85 Physical Exam GENERAL: SKIN: Warm and dry. HEAD: Normocephalic. EYES: No scleral icterus. No injection or drainage. NECK: Supple, trachea midline. No JVD or lymphadenopathy. CARDIOVASCULAR: Regular rate and rhythm 2/6 SM RESPIRATORY: rhonci GASTROINTESTINAL: Abdomen soft, non-tender, nondistended. MUSCULOSKELETAL: No cyanosis, or edema. BACK: Nontender without obvious deformity. No CVA tenderness. Laboratory Laboratory Tests Test 08/31/16 08/31/16 08/31/16 08/31/16 11:24 13:47 14:10 17:35 White Blood Count 8.5 TH/MM3 Red Blood Count 4.13 MIL/MM3 Hemoglobin 11.5 GM/DL Hematocrit 34.7 % Mean Corpuscular Volume 83.9 FL Mean Corpuscular Hemoglobin 27.8 PG Mean Corpuscular Hemoglobin 33.2 % Concent Red Cell Distribution Width 16.4 % Platelet Count 98 TH/MM3 Mean Platelet Volume 9.1 FL Neutrophils (%) (Auto) 83.3 % Lymphocytes (%) (Auto) 8.6 % Monocytes (%) (Auto) 7.1 % Eosinophils (%) (Auto) 0.6 % Basophils (%) (Auto) 0.4 % Neutrophils # (Auto) 7.1 TH/MM3 Lymphocytes # (Auto) 0.7 TH/MM3 Monocytes # (Auto) 0.6 TH/MM3 Eosinophils # (Auto) 0.1 TH/MM3 Basophils # (Auto) 0.0 TH/MM3 CBC Comment AUTO DIFF Differential Comment AUTO DIFF CONFIRMED Platelet Estimate LOW Platelet Morphology Comment NORMAL Red Cell Morphology Comment NORMAL Prothrombin Time 12.0 SEC Prothromb Time International 1.1 RATIO Ratio Activated Partial 29.3 SEC 28.8 SEC Thromboplast Time Sodium Level 128 MEQ/L Potassium Level 4.9 MEQ/L Chloride Level 93 MEQ/L Carbon Dioxide Level 24.7 MEQ/L Anion Gap 10 MEQ/L Blood Urea Nitrogen 26 MG/DL Creatinine 1.32 MG/DL Estimat Glomerular Filtration 54 ML/MIN Rate Random Glucose 396 MG/DL Lactic Acid Level 3.6 mmol/L 1.9 mmol/L 1.6 mmol/L Calcium Level 8.8 MG/DL Magnesium Level 2.0 MG/DL Total Bilirubin 0.7 MG/DL Aspartate Amino Transf 54 U/L (AST/SGOT) Alanine Aminotransferase 35 U/L (ALT/SGPT) Alkaline Phosphatase 154 U/L Total Creatine Kinase 126 U/L Creatine Kinase MB 7.6 NG/ML Troponin I 1.40 NG/ML 1.15 NG/ML B-Type Natriuretic Peptide 551 PG/ML Total Protein 6.8 GM/DL Albumin 2.6 GM/DL B-Hydroxybutyrate 0.13 MMOL/L Urine Color YELLOW Urine Turbidity CLEAR Urine pH 6.0 Urine Specific [place] 1.026 Urine Protein 100 mg/dL Urine Glucose (UA) 1000 mg/dL Urine Ketones NEG mg/dL Urine Occult Blood TRACE Urine Nitrite NEG Urine Bilirubin NEG Urine Urobilinogen 2.0 MG/DL Urine Leukocyte Esterase TRACE Urine RBC 4 /hpf Urine WBC 6 /hpf Urine Squamous Epithelial <1 /hpf Cells Urine Transitional Epithelial <1 /hpf Cells Urine Bacteria OCC /hpf Urine Hyaline Casts 12 /lpf Urine Mucus FEW /lpf Microscopic Urinalysis Comment CULT NOT INDICATED Test 08/31/16 08/31/16 09/01/16 23:32 23:46 06:30 Sodium Level 125 MEQ/L Potassium Level 5.4 MEQ/L Chloride Level 93 MEQ/L Carbon Dioxide Level 24.0 MEQ/L Anion Gap 8 MEQ/L Blood Urea Nitrogen 25 MG/DL Creatinine 1.07 MG/DL Estimat Glomerular Filtration 68 ML/MIN Rate Random Glucose 422 MG/DL Calcium Level 7.9 MG/DL Phosphorus Level 2.9 MG/DL Magnesium Level 2.0 MG/DL Total Bilirubin 0.6 MG/DL Aspartate Amino Transf 34 U/L (AST/SGOT) Alanine Aminotransferase 35 U/L (ALT/SGPT) Alkaline Phosphatase 140 U/L Troponin I 0.79 NG/ML Total Protein 6.5 GM/DL Albumin 2.6 GM/DL Activated Partial 29.8 SEC 28.1 SEC Thromboplast Time White Blood Count 8.5 TH/MM3 Red Blood Count 3.76 MIL/MM3 Hemoglobin 10.5 GM/DL Hematocrit 31.3 % Mean Corpuscular Volume 83.4 FL Mean Corpuscular Hemoglobin 27.9 PG Mean Corpuscular Hemoglobin 33.5 % Concent Red Cell Distribution Width 16.4 % Platelet Count 105 TH/MM3 Mean Platelet Volume 8.7 FL Neutrophils (%) (Auto) 87.8 % Lymphocytes (%) (Auto) 5.4 % Monocytes (%) (Auto) 6.6 % Eosinophils (%) (Auto) 0.1 % Basophils (%) (Auto) 0.1 % Neutrophils # (Auto) 7.4 TH/MM3 Lymphocytes # (Auto) 0.5 TH/MM3 Monocytes # (Auto) 0.6 TH/MM3 Eosinophils # (Auto) 0.0 TH/MM3 Basophils # (Auto) 0.0 TH/MM3 CBC Comment DIFF FINAL Differential Comment Assessment and Plan Assessment and Plan NSTEMI - no CP. troponin trending down. may be demand mediated from infectious process. DC heparin gtt. Will likely proceed with [facility] tomorrow or tuesday depending upon respiratory & infection status aortic valve stenosis - await 2d echo low Na/Cl. gentle hydration. rToy Dudley MD Sep 01, 2016 07:31
[2016-09-01] MEDS ORDERED: LOSARTAN 50 MG TAB PO SCH (09:00)
[2016-09-01] MEDS: methylPREDNISolone SOD SUCC 40 MG/1 ML VIAL IV SCH ×2 (09:46→17:22)
[2016-09-01] MEDS: PRAVASTATIN SOD 40 MG TAB PO SCH (09:47)
[2016-09-01] MEDS: SERTRALINE HCL 100 MG TAB PO SCH (09:47)
[2016-09-01] MEDS: ASPIRIN 325 MG TAB PO SCH (09:47)
[2016-09-01] MEDS: busPIRone HCL 10 MG TAB PO SCH ×2 (09:47→20:31)
[2016-09-01] MEDS: PRIMIDONE 50 MG TAB PO SCH ×3 (09:47→17:19)
[2016-09-01] MEDS: PREGABALIN 75 MG CAP PO SCH ×2 (09:47→20:31)
[2016-09-01] MEDS: CARVEDILOL 3.125 MG TAB PO SCH ×2 (09:47→20:31)
[2016-09-01] MEDS: cefTRIAXone INJ 1,000 MG in SODIUM CHLORIDE 0.9% INJ 100 ML IV SCH (09:47)
[2016-09-01] MEDS: AZITHROMYCIN 250 MG TAB PO SCH (12:06)
--- NOTE | 2016-09-01 12:56 | EC ---
Study Study Date:09/01/2016 STUDY CONCLUSIONS SUMMARY - Left ventricle: The cavity size was normal. Wall thickness was increased in a pattern of mild LVH. Systolic function was at the lower limits of normal. The estimated ejection fraction was in the range of 50% to 55%. Wall motion was normal; there were no regional wall motion abnormalities. - Aortic valve: Transvalvular velocity was increased less than expected. There was moderate to severe stenosis. Mild regurgitation. Valve area: 0.88cm^2(VTI). Valve area: 0.89cm^2 (Vmax). - Mitral valve: Valve area by continuity equation (using LVOT flow): 1.94cm^2. - Tricuspid valve: Mild regurgitation directed eccentrically and toward the septum. - Pulmonary arteries: Systolic pressure was moderately increased. PA peak pressure: 50mm Hg (S). If LV function is below 40, please consider prescribing an ACEI or ARB or document rationale for non-use. PROCEDURE DATA STUDY STATUS: Elective. Procedure: Transthoracic echocardiography. Image quality was good. Scanning was performed from the parasternal, apical, and subcostal acoustic windows. Study completion: The patient tolerated the procedure well. Transthoracic echocardiography. M-mode, complete 2D, complete spectral Doppler, and color Doppler. Patient status: Inpatient. CARDIAC ANATOMY LEFT VENTRICLE: The cavity size was normal. Wall thickness was increased in a pattern of mild LVH. Systolic function was at the lower limits of normal. The estimated ejection fraction was in the range of 50% to 55%. Wall motion was normal; there were no regional wall motion abnormalities. AORTIC VALVE: Trileaflet; mildly thickened, moderately calcified leaflets. Doppler: Transvalvular velocity was increased less than expected. There was moderate to severe stenosis. Mild regurgitation. Valve area: 0.88cm^2(VTI). Valve area: 0.89cm^2 (Vmax). Mean gradient: 20mm Hg (S). Peak gradient: 47mm Hg (S). AORTA: Aortic root: The aortic root was normal in size. MITRAL VALVE: Structurally normal valve. Doppler: Transvalvular velocity was within the normal range. There was no evidence for stenosis. Trace to mild regurgitation. Valve area by continuity equation (using LVOT flow): 1.94cm^2. Mean gradient: 3mm Hg (D). Peak gradient: 6mm Hg (D). LEFT ATRIUM: The atrium was normal in size. RIGHT VENTRICLE: The cavity size was normal. Wall thickness was normal. PULMONIC VALVE: Doppler: Transvalvular velocity was within the normal range. There was no evidence for stenosis. No regurgitation. TRICUSPID VALVE: Structurally normal valve. Doppler: Transvalvular velocity was within the normal range. Mild regurgitation directed eccentrically and toward the septum. PULMONARY ARTERY: Systolic pressure was moderately increased. RIGHT ATRIUM: The atrium was normal in size. PERICARDIUM: There was no pericardial effusion. SYSTEMIC VEINS: Inferior vena cava: The vessel was normal in size. BASIC MEASUREMENTS ADULT Normal Left ventricle LV internal dimension, ED, chordal level, 45.5 mm 43-52 PLAX LV internal dimension, ES, chordal level, *38.3 mm 23-38 PLAX Fractional shortening, chordal level, PLAX *16 % >29 LV posterior wall thickness, ED 7.11 mm IVS/LVPW ratio, ED *1.65 <1.3 Ventricular septum Septal thickness, ED 11.7 mm Left atrium Anterior-posterior dimension 36 mm Right ventricle RV internal dimension, ED, PLAX 21.7 mm 19-38 DOPPLER MEASUREMENTS ADULT Normal Main pulmonary artery Pressure, S *50 mm Hg =30 Aortic valve Peak velocity, S 344 cm/s Mean velocity, S 195 cm/s VTI, S 33.3 cm Mean gradient, S 20 mm Hg Peak gradient, S 47 mm Hg Valve area, VTI 0.88 cm^2 Valve area, Vmax 0.89 cm^2 Mitral valve Peak E-wave velocity 112 cm/s Peak A-wave velocity 114 cm/s Mean velocity, D 75.9 cm/s Mean gradient, D 3 mm Hg Peak gradient, D 6 mm Hg Peak E/A ratio 1 Valve area, LVOT continuity 1.94 cm^2 Tricuspid valve Regurgitant peak velocity 316 cm/s Peak RV-RA gradient, S 40 mm Hg Maximal regurgitant velocity 316 cm/s Systemic veins Estimated CVP 10 mm Hg Right ventricle RV pressure, S *50 mm Hg <30 LEGEND: Mean values are shown as u=mean value. Asterisk (*) junior values outside specified normal range. Prepared and signed by Troy Dudley [id number]
--- NOTE | 2016-09-01 13:48 | HHI.FPPN ---
Subjective Remarks No acute events overnight. Patient remains tachycardic and hypoxic. He reports shortness of breath after having to lie flat for his echo. He denies any chest pain or pressure. Blood sugars remain uncontrolled. (Verna Novak MD R3) Objective Vitals Vital Signs Date Time Temp Pulse Resp B/P Pulse Ox O2 Delivery O2 Flow Rate FiO2 09/01/16 13:01 108 09/01/16 12:56 102 09/01/16 11:36 98.2 118 22 144/86 90 09/01/16 11:33 118 09/01/16 10:49 98.0 120 22 150/88 90 09/01/16 08:01 93 09/01/16 06:00 102 09/01/16 05:00 98 09/01/16 04:00 108 09/01/16 03:00 98.4 98 24 157/90 95 09/01/16 03:00 95 09/01/16 02:00 94 09/01/16 01:00 92 09/01/16 00:00 98 08/31/16 23:00 97.8 96 24 139/80 93 08/31/16 23:00 97 08/31/16 22:00 96 08/31/16 21:00 96 08/31/16 20:00 98 08/31/16 19:00 105 08/31/16 19:00 98.8 101 24 155/88 93 08/31/16 16:30 98.4 99 18 137/72 95 08/31/16 13:41 105 20 118/59 92 Nasal Cannula 3 I/O 08/31/16 08/31/16 08/31/16 09/01/16 09/01/16 09/01/16 07:00 15:00 23:00 07:00 15:00 23:00 Intake Total 720 ml Output Total 750 ml Balance -30 ml Intake Oral 720 ml Output Urine Total 750 ml (Verna Novak MD R3) Result Diagram: 09/01/16 0630 08/31/16 2332 Objective Remarks Gen.: No acute distress. Patient tachypneic Head: Normocephalic. Atraumatic. EENT: Pupils equal round and reactive to light. Nose without drainage. Airway intact. Throat without injection. Cardiovascular: Regular rate and rhythm. No murmurs, rubs or gallops. Respiratory: Chest tight with rhonchi. Wheezing noted throughout. Abdomen: Soft, nontender, nondistended. No peritoneal signs. Musculoskeletal: No gross deformities. No edema. Skin: No obvious rashes or erythema. Neuro: Sensory and motor grossly intact. Cranial nerves II through XII grossly intact. Psych: Appropriate mood and affect (Verna Novak MD R3) A/P Assessment and Plan 71-year-old male who presented with a 5 day history of shortness of breath and nonproductive cough. ACS rule out positive for NSTEMI. Patient has a history of COPD and was admitted with sepsis. Discharge Planning Pending clinical improvement (Verna Novak MD R3) Attending Attestation Patient seen and examined with the resident team. Case reviewed and discussed Agree with plan of care as discussed with me and documented in the resident note. (She Harris MD) Problem List: (1) NSTEMI (non-ST elevated myocardial infarction) Status: Acute Plan: Patient with elevated troponins to 1.[address] elevations in V1 V3. Seen by cardiology and started on heparin drip upon admission. Patient with no chest pain, troponin trending down. May be secondary to demand ischemia from infectious process. Heparin drip was discontinued. Cardiology consulted, appreciate their assistance. Patient may undergo left heart catheter tomorrow or Tuesday pending clinical improvement. (2) Severe sepsis Status: Acute Plan: Lactic acid 3.6 on admission with likely respiratory source. No leukocytosis. Chest x-ray with bibasilar patchy alveolar opacities. Lactic acidosis has resolved. Rocephin 1000 mg every 24 hours and azithromycin 500 mg every 24 hours started on 09/01 Patient received cefepime on 08/31 Blood cultures no growth 1 day Legionella and strep pneumo antigens presumptive negative, influenza negative (3) Pneumonia Status: Acute Plan: Plan as above (4) CHF due to valvular disease Status: Acute Plan: Patient reports a history of aortic valve disease that will require replacement. He has delayed replacement secondary to not wanting to deal with the [facility] system. Echo today showed EF of 5055 percent. Aortic valve with moderate to severe stenosis. Cardiology consulted, appreciate recommendations (5) PHILIPPE (acute kidney injury) Status: Resolved Plan: Likely prerenal in origin. Resolved. (6) Diabetes Status: Acute Plan: Patient's home regimen is NPH 25 units every morning and 50 units daily at bedtime. Blood glucose uncontrolled at this time. Increase Levemir to 25 units twice a day with low-dose sliding scale insulin. Adjust when necessary. (7) COPD exacerbation Status: Acute Plan: Patient with known COPD and [id number] history of smoking. Albuterol every 2 hours when necessary DuoNeb nebs every 4 hours scheduled Solu-Medrol 40 mg every 6 hours (8) Hypertension Status: Acute Plan: Continue Coreg, losartan. Hydralazine when necessary. (9) Thrombocytopenia Status: Acute Plan: -Platelets 98 on admission, will monitor (10) Anxiety and depression Status: Acute Plan: -Continue home medications as follows: -Trazodone 100 mg by mouth daily -Sertraline 100 mg by mouth daily (11) BPH (benign prostatic hyperplasia) Status: Acute Plan: -History of BPH -Patient states history of using Flomax but not on current list of medications -Will consider starting Flomax if patient has symptoms (12) FEN/DVT PPX/GI PPX Status: Acute Plan: Fluids: Hep-Lock IV Electrolytes: Will monitor and replace as needed Nutrition: Heart healthy diet DVT Prophylaxis: Heparin 5000 units every 8 hours GI Prophylaxis: Protonix IV 40 mg daily (Verna Novak MD R3) Problem Qualifiers (1) Pneumonia: Qualified Code: J18.9 - Pneumonia of both lungs due to infectious organism, unspecified part of lung (2) Diabetes: Verna Novak MD R3 Sep 01, 2016 13:48 She Harris MD Sep 01, 2016 15:21
[2016-09-01] MEDS: ALPRAZolam 0.5 MG TAB PO PRN (14:43)
[2016-09-01] MEDS: HEPARIN SODIUM - SQ 10,000 UNITS/ML VIAL SQ SCH ×2 (14:44→20:31)
[2016-09-01] MEDS: RESP: ALBUTEROL 2.5 MG/IPRATROPIUM 0.5 MG NEB (SCH) NEB ×3 (15:11→23:56)
[2016-09-01] MEDS ORDERED: INSULIN DETEMIR 100 UNITS/ML VIAL SQ ONE (16:00)
--- NOTE | 2016-09-01 19:37 | HHI.FPPN ---
Addendum to progress note ADDENDUM Reason for addendum: Additonal documentation Additional information Resident checked on patient around 1845. He was sitting up comfortably in bed, at the bedside. Appeared more comfortable than when we saw him during rounds in the morning. He was talking comfortably but still requiring 6 L of supplemental oxygen by nasal cannula, with saturation in the low 90%. His lung exam was much improved compared to earlier, very minimal wheezing was appreciated. The patient stated that the DuoNeb treatments and Xanax were very helpful, stating that some of his distress earlier was due to anxiety. We discussed the results of his echo, which was performed earlier today, and a printout of the echo results was given to the patient and his . The patient was reminded of parent trainer, Dr. Dudley's plan to likely proceed with left heart catheterization either tomorrow 09/02 or Sunday 09/03, depending upon his respiratory and infectious status. The patient and his were agreeable with the plan and expressed understanding. (Rupali Eddy MD R1) Rupali Eddy MD R1 Sep 01, 2016 19:37 She Harris MD Sep 01, 2016 21:40
[2016-09-01] MEDS: traZODone HCL 100 MG TAB PO SCH (20:31)
[2016-09-01] MEDS: INSULIN DETEMIR 100 UNITS/ML VIAL SQ SCH (20:32)
--- NOTE | 2016-09-01 22:24 | EKG ---
Date Performed: 08/31/2016 Time Performed: 17:19:00 PTAGE: 71 years EKG: Sinus rhythm Lateral T wave changes may be due to myocardial ischemia Low QRS voltages in limb leads Abnormal ECG PREVIOUS TRACING : 08/31/2016 11.12 Compared to prior tracing no significant change DOCTOR: Jamee Alcantar Interpretating Date/Time 09/01/2016 22:22:16
--- NOTE | 2016-09-01 22:41 | EKG ---
Date Performed: 08/31/2016 Time Performed: 11:12:28 PTAGE: 71 years EKG: Sinus rhythm NONSPECIFIC T-WAVE ABNORMALITY ABNORMAL ECG Compared to prior tracing no significant change DOCTOR: Jamee Alcantar Interpretating Date/Time 09/01/2016 22:39:37
[2016-09-02] VITALS (29 sets, daily range): BP systolic 122–172; BP diastolic 69–79; PULSE 78–109; RESP 22–25; TEMP 98.1–99; O2SAT 90–94
[2016-09-02] MEDS: methylPREDNISolone SOD SUCC 40 MG/1 ML VIAL IV SCH ×3 (02:46→17:18)
[2016-09-02 04:25] LABS: AUTOMATED NEUTROPHIL # 8.7 TH/MM3 (1.8-7.7); BASOPHIL % 0.3 % (0.0-2.0); EOSINOPHIL # 0.1 TH/MM3 (0-0.4); EOSINOPHIL % 1.1 % (0.0-4.0); HEMATOCRIT 33.4 % (39.0-51.0); LYMPH % 8.5 % (9.0-44.0); LYMPHOCYTE # 0.9 TH/MM3 (1.0-4.8); MEAN CELL VOLUME 84.1 FL (80.0-100.0); MEAN CORPUSCULAR HEMOGLOBIN 28.1 PG (27.0-34.0); MEAN CORPUSCULAR HGB CONC 33.4 % (32.0-36.0); MONO % 7.5 % (0.0-8.0); NEUT % 82.6 % (16.0-70.0); PLATELET COUNT 135 TH/MM3 (150-450); RED BLOOD COUNT 3.97 MIL/MM3 (4.50-5.90); RED CELL DISTRIBUTION WIDTH 16.2 % (11.6-17.2); WHITE BLOOD COUNT 10.6 TH/MM3 (4.0-11.0)
[2016-09-02 04:28] LABS: HEMO FLAGS AUTO DIFF
[2016-09-02 05:24] LABS: SCAN/DIFF AUTO DIFF CONFIRMED
[2016-09-02] MEDS: INSULIN ASPART SUPPLEMENTAL SCALE SQ SCH ×4 (05:40→20:20)
[2016-09-02] MEDS: HEPARIN SODIUM - SQ 10,000 UNITS/ML VIAL SQ SCH ×3 (05:40→20:19)
[2016-09-02] MEDS: LEVOTHYROXINE SODIUM 50 MCG TAB PO SCH (05:41)
[2016-09-02] MEDS: ALPRAZolam 0.5 MG TAB PO PRN ×2 (05:41→17:25)
[2016-09-02] MEDS: RESP: ALBUTEROL 2.5 MG/IPRATROPIUM 0.5 MG NEB (SCH) NEB ×6 (05:51→23:35)
--- NOTE | 2016-09-02 08:01 | PD.CARD.PN ---
Subjective Subjective Remarks complains of shortness of breath (Bandar Yu) Objective Vital Signs / I&O Vital Signs Date Time Temp Pulse Resp B/P Pulse Ox O2 Delivery O2 Flow Rate FiO2 09/02/16 06:00 90 09/02/16 05:00 88 09/02/16 04:00 86 09/02/16 03:00 84 09/02/16 03:00 98.4 93 22 142/69 92 09/02/16 02:00 96 09/02/16 01:00 78 09/02/16 00:00 80 09/01/16 23:57 91 Nasal Cannula 5.00 09/01/16 23:00 72 09/01/16 22:00 80 09/01/16 21:00 96 09/01/16 20:00 96 09/01/16 19:00 98.3 95 22 152/82 94 09/01/16 19:00 90 09/01/16 18:12 97 09/01/16 17:13 91 09/01/16 16:02 106 09/01/16 15:59 106 09/01/16 15:59 98.0 106 22 134/80 96 09/01/16 15:11 91 Nasal Cannula 6.00 09/01/16 14:38 106 09/01/16 13:01 108 09/01/16 12:56 102 09/01/16 11:36 98.2 118 22 144/86 90 09/01/16 11:33 118 09/01/16 10:49 98.0 120 22 150/88 90 09/01/16 08:01 93 I/O 09/01/16 09/01/16 09/01/16 09/02/16 09/02/16 09/02/16 07:00 15:00 23:00 07:00 15:00 23:00 Intake Total 720 ml 525 ml 240 ml Output Total 750 ml 450 ml 325 ml Balance -30 ml 75 ml -85 ml Intake Oral 720 ml 425 ml 240 ml IV Total 100 ml Output Urine Total 750 ml 450 ml 325 ml Physical Exam GENERAL: Well-nourished, well-developed patient in no apparent distress. NECK: No JVD. No carotid bruit. CARDIOVASCULAR: Regular rate and rhythm. S1/S2 no murmur, rub, or gallop. RESPIRATORY: No accessory muscle use. Velcro like rales bilateral and throughout to auscultation. Breath sounds equal bilaterally. GASTROINTESTINAL: Abdomen soft, non-tender, nondistended. MUSCULOSKELETAL: Extremities without clubbing, cyanosis, or edema. Laboratory Laboratory Tests Test 09/01/16 09/02/16 14:58 03:48 Random Glucose 362 MG/DL White Blood Count 10.6 TH/MM3 Red Blood Count 3.97 MIL/MM3 Hemoglobin 11.2 GM/DL Hematocrit 33.4 % Mean Corpuscular Volume 84.1 FL Mean Corpuscular Hemoglobin 28.1 PG Mean Corpuscular Hemoglobin 33.4 % Concent Red Cell Distribution Width 16.2 % Platelet Count 135 TH/MM3 Mean Platelet Volume 8.4 FL Neutrophils (%) (Auto) 82.6 % Lymphocytes (%) (Auto) 8.5 % Monocytes (%) (Auto) 7.5 % Eosinophils (%) (Auto) 1.1 % Basophils (%) (Auto) 0.3 % Neutrophils # (Auto) 8.7 TH/MM3 Lymphocytes # (Auto) 0.9 TH/MM3 Monocytes # (Auto) 0.8 TH/MM3 Eosinophils # (Auto) 0.1 TH/MM3 Basophils # (Auto) 0.0 TH/MM3 CBC Comment AUTO DIFF Differential Comment AUTO DIFF CONFIRMED (Bandar Yu) Assessment and Plan Problem List: (1) NSTEMI (non-ST elevated myocardial infarction) (2) Aortic stenosis (3) Hypertension Assessment and Plan NSTEMI - no chest pain, short of breath with velcro like breath sounds. He cannot lay flat due to increases shortness of breath. SPO2 90% on nasal cannula oxygen - moderate to severe mean gradient 20 mmHg and valve area 0.88 cm2 HTN - with his hyperkalemia I would stop the losartan and start amlodipine 10 mg daily (Bandar Yu) Assessment and Plan still SOB. + PNA. cont ATBx mod-severe NSTEMI needs LHC when clinically able to tolerate procedure. I suspect either tomorrow or tuesday. he is going to need AVR. he has previously refused, but is now willing to discuss the option with a surgeon. I will consult CT surgery prior to LHC so I know how to address any coronary obstructions (ie CABG vs PCI). will discuss with CT surgery whether they feel NICOLLE would be helpful. will follow. (Troy Dudley MD) Bandar Yu Sep 02, 2016 08:01 Troy Dudley MD Sep 02, 2016 08:37
[2016-09-02] MEDS: busPIRone HCL 10 MG TAB PO SCH ×2 (08:51→20:19)
[2016-09-02] MEDS: CARVEDILOL 3.125 MG TAB PO SCH ×2 (08:51→20:19)
[2016-09-02] MEDS: cefTRIAXone INJ 1,000 MG in SODIUM CHLORIDE 0.9% INJ 100 ML IV SCH (08:51)
[2016-09-02] MEDS: ASPIRIN 325 MG TAB PO SCH (08:51)
[2016-09-02] MEDS: PRIMIDONE 50 MG TAB PO SCH ×3 (08:51→17:19)
[2016-09-02] MEDS: PRAVASTATIN SOD 40 MG TAB PO SCH (08:52)
[2016-09-02] MEDS: SERTRALINE HCL 100 MG TAB PO SCH (08:52)
[2016-09-02] MEDS: PREGABALIN 75 MG CAP PO SCH ×2 (08:52→20:19)
[2016-09-02] MEDS: INSULIN DETEMIR 100 UNITS/ML VIAL SQ SCH ×2 (08:53→20:20)
[2016-09-02] MEDS ORDERED: predniSONE 50 MG TAB PO SCH (09:00)
[2016-09-02 11:47] LABS: BICARBONATE 24.3 MEQ/L (21.0-32.0)
[2016-09-02 12:01] LABS: POTASSIUM 5.2 MEQ/L (3.5-5.1)
[2016-09-02] MEDS: AZITHROMYCIN 250 MG TAB PO SCH (12:39)
--- NOTE | 2016-09-02 13:48 | HHI.FPPN ---
Subjective Remarks Patient is feeling somewhat better this morning. He states he is breathing a little better. However, he states when his nasal cannula is, his oxygen sats drop and he gets more short of breath. Denies fevers or chills, but states he is hot more than usual. Somewhat clammy. Denies chest pain, nausea, vomiting, diarrhea. (Sae Perry MD R2) Objective Vitals Vital Signs Date Time Temp Pulse Resp B/P Pulse Ox O2 Delivery O2 Flow Rate FiO2 09/02/16 11:00 98.1 91 24 150/76 94 09/02/16 11:00 90 09/02/16 10:00 91 09/02/16 09:00 102 09/02/16 08:37 92 Nasal Cannula 6.00 09/02/16 08:00 100 09/02/16 07:15 98.3 101 24 172/78 92 09/02/16 07:00 97 09/02/16 06:00 90 09/02/16 05:00 88 09/02/16 04:00 86 09/02/16 03:00 84 09/02/16 03:00 98.4 93 22 142/69 92 09/02/16 02:00 96 09/02/16 01:00 78 09/02/16 00:00 80 09/01/16 23:57 91 Nasal Cannula 5.00 09/01/16 23:00 72 09/01/16 22:00 80 09/01/16 21:00 96 09/01/16 20:00 96 09/01/16 19:00 98.3 95 22 152/82 94 09/01/16 19:00 90 09/01/16 18:12 97 09/01/16 17:13 91 09/01/16 16:02 106 09/01/16 15:59 106 09/01/16 15:59 98.0 106 22 134/80 96 09/01/16 15:11 91 Nasal Cannula 6.00 09/01/16 14:38 106 I/O 09/01/16 09/01/16 09/01/16 09/02/16 09/02/16 09/02/16 07:00 15:00 23:00 07:00 15:00 23:00 Intake Total 720 ml 525 ml 240 ml Output Total 750 ml 450 ml 325 ml Balance -30 ml 75 ml -85 ml Intake Oral 720 ml 425 ml 240 ml IV Total 100 ml Output Urine Total 750 ml 450 ml 325 ml (Sae Perry MD R2) Result Diagram: 09/02/16 0348 09/02/16 1035 Objective Remarks Gen.: No acute distress. Head: Normocephalic. Atraumatic. EENT: Pupils equal round and reactive to light. Nose without drainage. Airway intact. Throat without injection. Cardiovascular: Regular rate and rhythm. No murmurs, rubs or gallops. Respiratory: Chest tight with rhonchi. Wheezing noted throughout. Abdomen: Soft, nontender, nondistended. No peritoneal signs. Musculoskeletal: No gross deformities. No edema. Skin: No obvious rashes or erythema. Neuro: Sensory and motor grossly intact. Cranial nerves II through XII grossly intact. Psych: Appropriate mood and affect (Sae Perry MD R2) A/P Assessment and Plan 71-year-old male who presented with a 5 day history of shortness of breath and nonproductive cough. ACS rule out positive for NSTEMI. Patient has a history of COPD and was admitted with sepsis with cardiology consultation for NSTEMI. Discharge Planning Pending clinical improvement (Sae Perry MD R2) Problem List: (1) NSTEMI (non-ST elevated myocardial infarction) Status: Acute Plan: Patient with elevated troponins to 1.[address] elevations in V1 V3. Cardiology following Left heart catheter when clinically able to perform procedure (either 09/03 or Tuesday) (2) Aortic stenosis Status: Acute Plan: Cardiothoracic surgery consulted Cardiology and cardiothoracic surgery to discuss plans going forward. Likely will optimize medical management for the infectious process prior to performing any procedures. Pulmonology consult given high surgical risk (3) Pneumonia Status: Acute Plan: Septic on admission. -Lactic acidosis has resolved. -Repeat chest x-ray Rocephin 1000 mg every 24 hours and azithromycin 500 mg every 24 hours started on 09/01 Patient received cefepime on 08/31 Blood cultures no growth 2 day Legionella and strep pneumo antigens presumptive negative, influenza negative History: -Chest x-ray 08/31- bibasilar patchy alveolar opacities. (4) CHF due to valvular disease Status: Acute Plan: Echo 09/02 showed EF of 5055 percent. Aortic valve with moderate to severe stenosis. Cardiology consulted, appreciate recommendations -Cardiothoracic surgery consulted -Coreg 3.125 mg by mouth every 12 hours (5) PHILIPPE (acute kidney injury) Status: Resolved Plan: Likely prerenal in origin. Resolved. (6) Diabetes Status: Acute Plan: Patient's home regimen is NPH 25 units every morning and 50 units daily at bedtime. Levemir to 25 units twice a day with low-dose sliding scale insulin. Adjust as necessary. (7) COPD exacerbation Status: Acute Plan: Patient with known COPD and [id number] history of smoking. Albuterol every 2 hours when necessary DuoNeb nebs every 4 hours scheduled Solu-Medrol 40 mg every 6 hours (8) Hypertension Status: Acute Plan: Continue Coreg and amlodipine. Hydralazine when necessary. Losartan held by cardiology secondary to hyperkalemia (9) Thrombocytopenia Status: Acute Plan: Improving Continue to monitor (10) Anxiety and depression Status: Acute Plan: -Continue home medications as follows: -Trazodone 100 mg by mouth daily -Sertraline 100 mg by mouth daily (11) BPH (benign prostatic hyperplasia) Status: Acute Plan: -History of BPH -Patient states history of using Flomax but not on current list of medications -Will consider starting Flomax if patient has symptoms (12) Severe sepsis Status: Resolved (13) FEN/DVT PPX/GI PPX Status: Acute Plan: Fluids: Hep-Lock IV Electrolytes: Will monitor and replace as needed Nutrition: Heart healthy diet DVT Prophylaxis: Heparin 5000 units every 8 hours GI Prophylaxis: Protonix IV 40 mg daily (Sae Perry MD R2) Problem Qualifiers (1) Pneumonia: Qualified Code: J18.9 - Pneumonia of both lungs due to infectious organism, unspecified part of lung (2) Diabetes: Sae Perry MD R2 Sep 02, 2016 13:48 She Harris MD Sep 03, 2016 13:57
--- NOTE | 2016-09-02 14:32 | MB ---
cc: CORONA MONACO DATE OF CONSULTATION 09/02/2016 IDENTIFYING DATA A 71-year-old male. 1945. HISTORY OF PRESENT ILLNESS The patient presented to the emergency department with a [id number]-[id number] [place], apparently is followed by the [place], underwent heart catheterization in 2014, was told at that time he needed to have valve surgery. He had presented to the emergency department with a five-day history of progressive symptoms of shortness of breath, nonproductive cough. Lactic acid was mildly elevated at one point at 3.6 and then leveled out. He also was somewhat hypoxic and chest x-ray showed possible pneumonia. He was started on IV antibiotics. His blood cultures are negative. He was negative for influenza A and B, negative for Streptococcus and negative for Legionella. They currently have him on Zithromax and Rocephin. Troponins were elevated at 1.15 and 0.79. He has history of COPD and was also started on some Solu-Medrol. He has had some elevated blood sugars, probably secondary to the addition of the steroids. The patient has not done undergone cardiac cath at this time. He still is on 45% Ventimask, desaturates very quickly with any exertion or movement. Cath possibly in the a.m. versus Tuesday morning. The patient is currently pain-free, is extremely anxious. PAST MEDICAL HISTORY 1. Anxiety. 2. Claustrophobia. 3. Gastroesophageal reflux disease. 4. Diabetes. 5. COPD. 6. Hyperlipidemia. 7. Per his , he does have some involuntary shaking of his upper extremities. 8. History of arthritis. PAST SURGICAL HISTORY Bilateral knee surgery. ALLERGIES NIACIN. FAMILY HISTORY Noncontributory. SOCIAL HISTORY . No tobacco or alcohol. REVIEW OF SYSTEMS 12-point system performed, negative unless otherwise noted in the History Of Present Illness. PHYSICAL EXAMINATION On exam, a very anxious-appearing male. VITAL SIGNS: Blood pressure 150/70, heart rate of 90, temperature 98.1. GENERAL: The patient is awake, alert, in no acute distress. HEENT: Head is normocephalic, atraumatic. Pupils equal and reactive. Oral mucosa pink, moist. NECK: Supple. No JVD. HEART SOUNDS: S1, S2. Regular rate and rhythm. He has a grade 2/6 systolic murmur, best noted at the left sternal border. ABDOMEN: Obese, soft, nontender. No masses or organomegaly. EXTREMITIES: No cyanosis, clubbing or edema. LAB WORK Sodium of 125, potassium 5.4, BUN of 25 with a creatinine of 1.07. Creatinine on admission was 1.32. Phos level 2.9. Troponins as above. AST 34, ALT 35. INR 1.1. Urine was unremarkable. Hemoglobin 11, hematocrit 33, white cell count 10, platelet count 135. CHEST X-RAY Showed some interstitial bibasilar opacities with possible underlying pneumonia. His white cell count on admission, however, was normal at 8.5. EKG Sinus rhythm, some left atrial enlargement, nonspecific T-wave changes. IMPRESSION This is a 71-year-old male with [id number] [place], can also have elevated troponin secondary to his renal insufficiency. Chest x-ray more consistent with CHF and possible interstitial lung disease versus with some pneumonia. 2-D echo was completed which showed a valve area of 0.88, showing severe stenosis of the aortic valve. Tricuspid valve had some mild regurgitation. EF was 50-55%. RECOMMENDATIONS At this time we will await the results of the cardiac cath to evaluate timing for aortic valve replacement versus repair. Dictated by: DAT Albarran MD ANGLE Ragland/AGUSTIN /12:00 PM /2:27 PM
--- NOTE | 2016-09-02 16:42 | RADRPT ---
EXAM DATE/TIME: 09/02/2016 14:10 [facility] COMPARISON: CHEST SINGLE AP, August 31, 2016, 11:32. CHEST PA & LAT, June 28, 2012, 10:45. INDICATIONS : Dyspnea. MEDICAL HISTORY : Chronic obstructive pulmonary disease. Leaking heart valve. SURGICAL HISTORY : None. ENCOUNTER: Subsequent ACUITY: 4 - 6 days PAIN SCORE: 0/10 LOCATION: chest FINDINGS: Increasing interstitial infiltrates, now involving the mid and lower lungs with loss of delineation o f the portion of the left hemidiaphragm and with some patchy areas of consolidation. The heart is st able in size. CONCLUSION: Increasing severity bilateral mixed interstitial and alveolar infiltrates. Nathan Todd MD on September 02, 2016 at 16:40 Board Certified Radiologist. This report was verified electronically.
[2016-09-02 17:50] LABS: BLOOD GAS BASE EXCESS -0.9 mmol/L (-2-2); BLOOD GAS CARBOXYHEMOGLOBIN 2.5 % (0-4); BLOOD GAS HCO3 23 mmol/L (22-26); BLOOD GAS O2 HGB SATURATION 90 % (90-100); BLOOD GAS OXYGEN CONTENT 14.9 Vol % (12.0-20.0); BLOOD GAS PCO2 36 mmHg (38-42); BLOOD GAS PO2 73 mmHg (61-120); BLOOD GAS TOTAL HGB 11.7 G/DL (12.0-16.0); CRITICAL VALUE NO; DRAW SITE RT RADIAL; LITER FLOW 6 L/M; NUMBER OF ARTERIAL PUNCTURES 1; OXYGEN DEVICE NASAL CANNULA; STAT NO; TEMP CORR TO 98.6; ULNAR PULSE PRESENT
--- NOTE | 2016-09-02 18:27 | MB ---
cc: JOSE MANUEL HAAS DATE OF CONSULTATION 09/02/[address] Eddy REASON FOR CONSULTATION Shortness of breath and COPD. HISTORY OF PRESENT ILLNESS Mr. Tellez is a pleasant 71-year-old white male with history of hypertension, diabetes mellitus, aortic stenosis and anxiety and depression. The patient has been living sedentary lifestyle for at least three years or so. He had knee surgery which got too complicated with infection and then replacement of the knee with another surgery and every since he has been basically staying in bed. He walks only a few steps in the house to the bathroom and gets short of breath. He came to the hospital with worsening of shortness of breath for at least five days. He had cough and congestion, more short of breath. No chest pain, no nausea or vomiting. He was worked up in the hospital. Chest x-ray shows bilateral mixed interstitial and alveolar infiltrate. CT showed WBC count 10.6, hemoglobin 11.2, hematocrit 33.4, MCV 84, platelet count 135, sodium 127, potassium 5.0 chloride 93, CO2 24, BUN 27, creatinine 0.90, glucose 220. INR is 1.1. His blood cultures are negative. Urine Legionella antigen is negative. Pneumococcal antigen is negative. PAST MEDICAL HISTORY 1. Hypertension 2. Diabetes mellitus 3. Knee surgery 4. Anxiety depression 5. Aortic stenosis status post aortic valve replacement which he did not pursue 6. History of knee surgery. MEDICATIONS He is currently taking 1. Amlodipine 10 mg a day. 2. Insulin Levemir 25 units q.12 h 3. Solu-Medrol 40 mg q. 8-hour 4. Nebulizer treatment with DuoNeb every 4-hour as needed. 5. Heparin 5000 q.8 h. 6. Zithromax 500 mg daily 7. Rocephin 1 gram a day. 8. Zoloft 100 milligrams a day 9. Protonix 40 mg a day 10. Aspirin 325 mg a day 11. Coreg 3.125 mg twice a day. 12. Levothyroxine 50 mcg a day. 13. BuSpar 10 mg twice a day 14. Lyrica 150 mg twice a day. 15. Trazodone 100 mg at nighttime 16. Primidone 100 mg three times a day. 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 Had history of smoking three pack a day for more than 40 years which he quit 8 years ago. He used to drink heavily. FAMILY HISTORY second time. He has two children from the first . REVIEW OF SYSTEMS Walks only short distance, a few steps in the house and cannot walk any more than that. He has not been using any nebulizer treatment. No seizure, stroke or epilepsy. no malignancy. PHYSICAL EXAMINATION GENERAL: Obese male, mildly short of breath. VITAL SIGNS: Blood pressure 147/79, heart 92, respiration 18, temperature 99 HEENT: Pupils are equal and reactive to light. Oral mucosa and nasal mucosa normal. NECK: Supple. JVP not raised. CHEST: He has few scattered rales. CARDIOVASCULAR: S1, S2 normal ABDOMEN: Benign. EXTREMITIES: No edema. IMPRESSION 1. Shortness of breath likely from his underlying COPD. 2. Lung infiltrate. 3. Diabetes mellitus. 4. Chronic pain. PLAN I discussed with the patient and his I will get his blood gas, supplement his oxygen, keep the saturation greater than 90%, evaluate him for possible home oxygen therapy. Continue antibiotic Rocephin and Zithromax, IV Solu-Medrol. Monitor blood sugar, monitor electrolytes. Further treatment will depend on the course in the hospital. Thank you, Dr. Eddy, for this consultation. MD CHANI Eldridge/ /5:06 PM /5:52 PM ROSIO
[2016-09-02] MEDS: traZODone HCL 100 MG TAB PO SCH (20:19)
[2016-09-03] VITALS (25 sets, daily range): BP systolic 130–160; BP diastolic 70–89; PULSE 76–106; RESP 22–28; TEMP 97.5–99; O2SAT 92–98
[2016-09-03] MEDS: methylPREDNISolone SOD SUCC 40 MG/1 ML VIAL IV SCH ×3 (02:00→17:18)
[2016-09-03] MEDS: RESP: ALBUTEROL 2.5 MG/IPRATROPIUM 0.5 MG NEB (SCH) NEB ×5 (03:24→19:51)
[2016-09-03] MEDS: ALPRAZolam 0.5 MG TAB PO PRN ×3 (05:20→21:47)
[2016-09-03] MEDS: LEVOTHYROXINE SODIUM 50 MCG TAB PO SCH (05:20)
[2016-09-03] MEDS: HEPARIN SODIUM - SQ 10,000 UNITS/ML VIAL SQ SCH ×3 (05:20→21:48)
[2016-09-03] MEDS: INSULIN ASPART SUPPLEMENTAL SCALE SQ SCH ×4 (06:35→21:00)
[2016-09-03] MEDS ORDERED: FUROSEMIDE 40 MG/4 ML VIAL IV PUSH ONE (07:00)
[2016-09-03 07:03] LABS: BLOOD GAS BASE EXCESS 0.4 mmol/L (-2-2); BLOOD GAS CARBOXYHEMOGLOBIN 2.8 % (0-4); BLOOD GAS HCO3 24 mmol/L (22-26); BLOOD GAS O2 HGB SATURATION 90 % (90-100); BLOOD GAS OXYGEN CONTENT 14.6 Vol % (12.0-20.0); BLOOD GAS PCO2 39 mmHg (38-42); BLOOD GAS PO2 71 mmHg (61-120); BLOOD GAS TOTAL HGB 11.5 G/DL (12.0-16.0); CRITICAL VALUE NO; FIO2 50 %; OXYGEN DEVICE VENTI; TEMP CORR TO 98.6
[2016-09-03 07:04] LABS: DRAW SITE RT RADIAL; NUMBER OF ARTERIAL PUNCTURES 1; STAT YES; ULNAR PULSE PRESENT
--- NOTE | 2016-09-03 07:04 | HHI.FPPN ---
Subjective Remarks Pt is lying in bed, nurse and respiratory therapist at bedside. He desaturated to the mid 80's on 6L. Was placed on venti mask which worked for a while, but then he desaturated again to 80-85 after 20 minutes. He was placed on partial nonrebreather at 100% and his saturation came back up to 99%. Back on venti at 50% with saturations in the low 90's. ABG performed at bedside was within normal limits with pH of 7.41 and PCO2 38.6. He was given a trial dose of 20mg IV lasix. (Eko,Rupali Stewart MD R1) Objective Vitals Vital Signs Date Time Temp Pulse Resp B/P Pulse Ox O2 Delivery O2 Flow Rate FiO2 09/03/16 04:00 88 09/03/16 03:00 92 09/03/16 02:00 106 09/03/16 01:00 96 09/03/16 00:00 84 09/02/16 23:00 83 09/02/16 22:00 84 09/02/16 21:20 18 09/02/16 21:00 90 09/02/16 20:00 94 09/02/16 19:37 90 Nasal Cannula 6.00 09/02/16 19:00 98 09/02/16 18:00 96 09/02/16 17:00 95 09/02/16 16:00 95 09/02/16 15:00 99.0 92 25 147/79 94 09/02/16 15:00 91 09/02/16 14:00 92 09/02/16 13:00 92 09/02/16 12:00 90 09/02/16 11:00 98.1 91 24 150/76 94 09/02/16 11:00 90 09/02/16 10:00 91 09/02/16 09:00 102 09/02/16 08:37 92 Nasal Cannula 6.00 09/02/16 08:00 100 09/02/16 07:15 98.3 101 24 172/78 92 I/O 09/02/16 09/02/16 09/02/16 09/03/16 09/03/16 09/03/16 07:00 15:00 23:00 07:00 15:00 23:00 Intake Total 240 ml 940 ml Output Total 325 ml 650 ml Balance -85 ml 290 ml Intake Oral 240 ml 940 ml Output Urine Total 325 ml 650 ml # Bowel Movements 1 (EkRupali trimble MD R1) Result Diagram: 09/02/16 0348 09/02/16 1035 Objective Remarks Gen.: No acute distress. Sleeping Head: Normocephalic. Atraumatic. EENT: Pupils equal round and reactive to light. Nose without drainage. Airway intact. Throat without injection. Cardiovascular: Regular rate and rhythm. No murmurs, rubs or gallops. Respiratory: Chest tight with rhonchi. Abdomen: Soft, nontender, nondistended. No peritoneal signs. Musculoskeletal: No gross deformities. No edema. Skin: No obvious rashes or erythema. Neuro: Sensory and motor grossly intact. Cranial nerves II through XII grossly intact. Psych: Appropriate mood and affect (Rupali Eddy MD R1) A/P Assessment and Plan 71-year-old male who presented with a 5 day history of shortness of breath and nonproductive cough. ACS rule out positive for NSTEMI. Patient has a history of COPD and was admitted with sepsis with cardiology consultation for NSTEMI. Discussed with Dr. Harris and Dr. Perry, PGY 2 Discharge Planning Pending clinical improvement (Rupali Eddy MD R1) Attending Attestation Patient seen and examined. Case reviewed and discussed Agree with plan of care as discussed with me and documented in the resident note. Discussed plan of care with family and RN at the bedside. (She Harris MD) Problem List: (1) Severe sepsis Status: Resolved Plan: Septic on admission -WBC increased to 18.3 today compared to 10.6 yesterday 09/02 -CXR on 09/02 showed increasing severity bilateral mixed interstitial and alveolar infiltrates -Repeat chest x-ray today 09/03 -Start Vancomycin 1250mg IV Q12h with pharmacy consult and Zosyn 3.375mg IV Q6h Continue azithromycin 500 mg PO Q24h started on 09/01 Repeat blood cultures -Repeat lactic acid (2) NSTEMI (non-ST elevated myocardial infarction) Status: Acute Plan: Patient with elevated troponins to 1.[address] elevations in V1 V3. Cardiology following Left heart catheter when clinically able to perform procedure (3) Aortic stenosis Status: Acute Plan: Cardiothoracic surgery consulted Cardiology and cardiothoracic surgery to discuss plans going forward. Likely will optimize medical management for the infectious process prior to performing any procedures. Pulmonology consult given high surgical risk (4) Pneumonia Status: Acute Plan: See plan for severe sepsis above (5) CHF due to valvular disease Status: Acute Plan: Echo 09/02 showed EF of 5055 percent. Aortic valve with moderate to severe stenosis. Cardiology consulted, appreciate recommendations -Cardiothoracic surgery consulted -Coreg 3.125 mg by mouth every 12 hours (6) PHILIPPE (acute kidney injury) Status: Resolved Plan: Likely prerenal in origin. Resolved. (7) Diabetes Status: Acute Plan: Patient's home regimen is NPH 25 units every morning and 50 units daily at bedtime. Required 12 units of SSRI in the last 24 hours Will increase Levemir to 30 units tin the am and 25 at nite with low-dose sliding scale insulin. Adjust as necessary. (8) COPD exacerbation Status: Acute Plan: Patient with known COPD and [id number] history of smoking. Albuterol every 2 hours when necessary DuoNeb nebs every 4 hours scheduled Solu-Medrol 40 mg every 6 hours (9) Hyponatremia Status: Acute Plan: -Pseudohyponatremia vs SIADH vs some element of both -Glucose was initially elevated at admission but has trended down since to 164 this am -But even with 422 glucose, corrected sodium should be ~130, which is still below normal limits -Will order serum osmolality and urine sodium, and urine osmolality (10) Hypertension Status: Acute Plan: Continue Coreg and amlodipine. Hydralazine when necessary. Losartan held by cardiology secondary to hyperkalemia (11) Thrombocytopenia Status: Acute Plan: Improving Continue to monitor (12) Anxiety and depression Status: Acute Plan: -Continue home medications as follows: -Trazodone 100 mg by mouth daily -Sertraline 100 mg by mouth daily (13) BPH (benign prostatic hyperplasia) Status: Acute Plan: -History of BPH -Patient states history of using Flomax but not on current list of medications -Will consider starting Flomax if patient has symptoms (14) FEN/DVT PPX/GI PPX Status: Acute Plan: Fluids: Hep-Lock IV Electrolytes: Will monitor and replace as needed Nutrition: Heart healthy diet DVT Prophylaxis: Heparin 5000 units every 8 hours GI Prophylaxis: Protonix IV 40 mg daily (EkoRupali MD R1) Problem Qualifiers (1) Pneumonia: Qualified Code: J18.9 - Pneumonia of both lungs due to infectious organism, unspecified part of lung (2) Diabetes: Rupali Eddy MD R1 Sep 03, 2016 07:04 She Harris MD Sep 03, 2016 13:57
[2016-09-03 07:07] LABS: AUTOMATED NEUTROPHIL # 15.8 TH/MM3 (1.8-7.7); BASOPHIL # 0.1 TH/MM3 (0-0.2); BASOPHIL % 0.4 % (0.0-2.0); EOSINOPHIL # 0.2 TH/MM3 (0-0.4); EOSINOPHIL % 0.9 % (0.0-4.0); HEMATOCRIT 33.4 % (39.0-51.0); LYMPH % 5.7 % (9.0-44.0); MEAN CELL VOLUME 82.8 FL (80.0-100.0); MEAN CORPUSCULAR HEMOGLOBIN 27.8 PG (27.0-34.0); MEAN CORPUSCULAR HGB CONC 33.6 % (32.0-36.0); MONO % 6.7 % (0.0-8.0); NEUT % 86.3 % (16.0-70.0); PLATELET COUNT 162 TH/MM3 (150-450); RED BLOOD COUNT 4.03 MIL/MM3 (4.50-5.90); WHITE BLOOD COUNT 18.3 TH/MM3 (4.0-11.0)
[2016-09-03 07:45] LABS: HEMO FLAGS AUTO DIFF
--- NOTE | 2016-09-03 07:49 | PD.CARD.PN ---
Subjective Subjective Remarks still short of breath. Desaturation event this morning now on partial NRB. Breathing somewhat improved now (Bandar Yu) Objective Vital Signs / I&O Vital Signs Date Time Temp Pulse Resp B/P Pulse Ox O2 Delivery O2 Flow Rate FiO2 09/03/16 04:00 88 09/03/16 03:00 92 09/03/16 02:00 106 09/03/16 01:00 96 09/03/16 00:00 84 09/02/16 23:00 83 09/02/16 22:00 84 09/02/16 21:20 18 09/02/16 21:00 90 09/02/16 20:00 94 09/02/16 19:37 90 Nasal Cannula 6.00 09/02/16 19:00 98 09/02/16 18:00 96 09/02/16 17:00 95 09/02/16 16:00 95 09/02/16 15:00 99.0 92 25 147/79 94 09/02/16 15:00 91 09/02/16 14:00 92 09/02/16 13:00 92 09/02/16 12:00 90 09/02/16 11:00 98.1 91 24 150/76 94 09/02/16 11:00 90 09/02/16 10:00 91 09/02/16 09:00 102 09/02/16 08:37 92 Nasal Cannula 6.00 09/02/16 08:00 100 I/O 09/02/16 09/02/16 09/02/16 09/03/16 09/03/16 09/03/16 07:00 15:00 23:00 07:00 15:00 23:00 Intake Total 240 ml 940 ml Output Total 325 ml 650 ml Balance -85 ml 290 ml Intake Oral 240 ml 940 ml Output Urine Total 325 ml 650 ml # Bowel Movements 1 Physical Exam GENERAL: Well-nourished, well-developed patient in no apparent distress. NECK: No JVD. No carotid bruit. CARDIOVASCULAR: Regular rate and rhythm. S1/S2 no murmur, rub, or gallop. RESPIRATORY: No accessory muscle use. rales to auscultation. Breath sounds equal bilaterally. GASTROINTESTINAL: Abdomen soft, non-tender, nondistended. MUSCULOSKELETAL: Extremities without clubbing, cyanosis, or edema. Laboratory Laboratory Tests Test 09/02/16 09/02/16 09/03/16 10:35 17:42 06:49 Sodium Level 127 MEQ/L Potassium Level 5.2 MEQ/L Chloride Level 93 MEQ/L Carbon Dioxide Level 24.3 MEQ/L Anion Gap 10 MEQ/L Blood Urea Nitrogen 27 MG/DL Creatinine 0.90 MG/DL Estimat Glomerular Filtration 83 ML/MIN Rate Random Glucose 229 MG/DL Calcium Level 8.3 MG/DL Blood Gas Puncture Site RT RADIAL RT RADIAL Blood Gas Patient Temperature 98.6 98.6 Blood Gas HCO3 23 mmol/L 24 mmol/L Blood Gas Base Excess -0.9 mmol/L 0.4 mmol/L Blood Gas Oxygen Saturation 90 % 90 % Arterial Blood pH 7.42 7.42 Arterial Blood Partial 36 mmHg 39 mmHg Pressure CO2 Arterial Blood Partial 73 mmHg 71 mmHg Pressure O2 Arterial Blood Oxygen Content 14.9 Vol % 14.6 Vol % Arterial Blood 2.5 % 2.8 % Carboxyhemoglobin Arterial Blood Methemoglobin 1.0 % 1.0 % Blood Gas Hemoglobin 11.7 G/DL 11.5 G/DL Oxygen Delivery Device NASAL CANNULA VENTI Blood Gas Liter Flow 6 L/M Blood Gas Inspired Oxygen 50 % (Bandar Yu) Assessment and Plan Problem List: (1) NSTEMI (non-ST elevated myocardial infarction) (2) Aortic stenosis (3) Hypertension Assessment and Plan NSTEMI - no chest pain. He still cannot lay flat due to increases shortness of breath. - moderate to severe mean gradient 20 mmHg and valve area 0.88 cm2 HTN - with his hyperkalemia I would stop the losartan and start amlodipine 10 mg daily PNA - conitnue ABX and supplemental oxygen (Bandar Yu) Assessment and Plan continue medical therapy possible [facility] tuesday. severe . will determine timing of AVR (Troy Dudley MD) Bandar Yu Sep 03, 2016 07:49 Troy Dudley MD Sep 03, 2016 12:14
[2016-09-03 08:06] LABS: BICARBONATE 25.5 MEQ/L (21.0-32.0)
[2016-09-03 08:59] LABS: BANDS 3 % (0-6); NEUTROPHIL # MANUAL DIFF 15.6 TH/MM3 (1.8-7.7); POLYS (SEG NEUTROPHILS) 82 % (16-70); WBC DIFF SAMPLE 100
[2016-09-03] MEDS: INSULIN DETEMIR 100 UNITS/ML VIAL SQ SCH ×2 (09:00→21:56)
[2016-09-03] MEDS: SERTRALINE HCL 100 MG TAB PO SCH (09:00)
[2016-09-03 09:12] LABS: KERATOCYTES OCC (NORMAL); PLATELET ESTIMATE SMEAR NORMAL (NORMAL); PLATELET MORPHOLOGY CLUMPED (NORMAL); SCAN/DIFF FINAL DIFF MANUAL
[2016-09-03] MEDS: PRIMIDONE 50 MG TAB PO SCH ×3 (09:54→17:17)
[2016-09-03] MEDS: ASPIRIN 325 MG TAB PO SCH (09:55)
[2016-09-03] MEDS: PRAVASTATIN SOD 40 MG TAB PO SCH (09:55)
[2016-09-03] MEDS: CARVEDILOL 3.125 MG TAB PO SCH ×2 (09:55→21:47)
[2016-09-03] MEDS: PREGABALIN 75 MG CAP PO SCH ×2 (09:55→21:47)
[2016-09-03] MEDS: busPIRone HCL 10 MG TAB PO SCH ×2 (09:55→21:47)
[2016-09-03] MEDS: cefTRIAXone INJ 1,000 MG in SODIUM CHLORIDE 0.9% INJ 100 ML IV SCH (09:55)
[2016-09-03] MEDS ORDERED: Vancomycin Consult Pharmacy 1 EA OTHER SCH (10:15)
[2016-09-03] MEDS ORDERED: VANCOMYCIN INJ 1,250 MG in SODIUM CHLOR 0.9% 250 ML INJ 250 ML IV SCH (10:15)
[2016-09-03] MEDS: PIPERACIL-TAZO 3.375 GM PREMIX 50 ML IV SCH ×2 (11:00→17:17)
[2016-09-03] MEDS: AZITHROMYCIN 250 MG TAB PO SCH (11:38)
[2016-09-03] MEDS ORDERED: VANCOMYCIN INJ 2,000 MG in SODIUM CHLORID 0.9% 500 ML INJ 500 ML IV ONE (12:00)
--- NOTE | 2016-09-03 12:17 | RADRPT ---
EXAM DATE/TIME: 09/03/2016 10:00 [place] COMPARISON: CHEST PA & LAT, September 02, 2016, 14:10. CHEST SINGLE AP, August 31, 2016, 11:32. INDICATIONS : Respiratory disease. MEDICAL HISTORY : Chronic obstructive pulmonary disease, leaking heart valve, lactic acidosis SURGICAL HISTORY : None. ENCOUNTER: Subsequent ACUITY: 3 days PAIN SCORE: Non-responsive. LOCATION: chest FINDINGS: A single frontal view the chest shows bilateral pulmonary infiltrates which are mixed interstitial an d intra-alveolar. Tiny effusions are noted. Heart is normal in size. Appearance is stable from the pr ior study. Scoliotic curvature. CONCLUSION: Unchanged bilateral pulmonary infiltrates and tiny effusions. Nathan Sutton Jr., MD on September 03, 2016 at 12:14 Board Certified Radiologist. This report was verified electronically.
--- NOTE | 2016-09-03 15:19 | HHI.FPPN ---
Addendum to progress note ADDENDUM Reason for addendum: Additonal documentation Additional information Patient was seen at 1500. He was sitting in a chair with the non-rebreather mask , volume of 10 L, 100% oxygen. He had been sitting in the chair for about 30 minutes and kept asking to return to the bed. With redirection, he agreed to stay up in the chair for at least an hour. Exam: Coarse breath sounds, no crackles, slightly increased effort. Plan is to continue supplemental oxygen, wean as tolerated. He has received one dose each of IV vancomycin and Zosyn. (Rupali Eddy MD R1) Rupali Eddy MD R1 Sep 03, 2016 15:19 She Harris MD Sep 03, 2016 15:23
--- NOTE | 2016-09-03 16:04 | PD.CAR.PN ---
CVT Progress Note Subjective/Hospital Course: The patient states that he felt very weak and could barely walk to the bathroom because he was so short of breath. He states that he also felt very hot , but did not measure his temperature at home. His gave him some old inhalers on Sunday 08/27, some Xanax on Monday 08/28, and some old diazepam medications every 4-5 hours, which calmed him down such that he was able to sleep. Worsening dyspnea , found to have bilateral infiltrates , initially treated for CPAP ABX now changed to Vanc and zosyn, pt had + trop, abnormal ECG, ween and eval by Dr Dudley pending cardiac cath, once resp status improves pmh: hypertension, aortic valvular disease ( Aortic stenosis ) , anxiety, depression, and BPH ECHO: aortic valve area 0.88, peak gradient of 47/ EF 50% 09/04 pt was on partial NRB mask this am, states he feels a little better, at bedside sputum , repeat blood cultures pending await cath Objective: GENERAL: SKIN: Warm and dry. HEAD: Normocephalic. EYES: No scleral icterus. No injection or drainage. NECK: Supple, trachea midline. No JVD or lymphadenopathy. CARDIOVASCULAR: Regular rate and rhythm with 2-3/6 SM RESPIRATORY: coarse bilateral breath sounds , on partial NRB mask GASTROINTESTINAL: Abdomen soft, non-tender, nondistended. MUSCULOSKELETAL: No cyanosis, or edema. BACK: Nontender without obvious deformity. No CVA tenderness. Vital Signs Date Time Temp Pulse Resp B/P Pulse Ox O2 Delivery O2 Flow Rate FiO2 09/03/16 15:45 98.0 96 22 130/70 95 09/03/16 15:35 96 09/03/16 15:35 96 09/03/16 14:49 88 09/03/16 13:31 91 09/03/16 12:00 94 09/03/16 11:25 98.0 98 22 136/78 98 09/03/16 11:22 91 09/03/16 10:47 102 09/03/16 10:47 98.0 102 22 140/88 96 09/03/16 08:40 106 09/03/16 07:30 94 Partial Rebreather 12.00 09/03/16 04:00 99.0 90 25 151/83 92 09/03/16 04:00 88 09/03/16 03:00 92 09/03/16 02:00 106 09/03/16 01:00 96 09/03/16 00:00 84 09/02/16 23:45 98.8 109 25 147/71 90 09/02/16 23:00 83 09/02/16 22:00 84 09/02/16 21:20 18 09/02/16 21:00 90 09/02/16 20:00 94 09/02/16 19:37 90 Nasal Cannula 6.00 09/02/16 19:35 98.8 100 25 154/79 92 09/02/16 19:00 98 09/02/16 18:00 96 09/02/16 17:00 95 09/02/16 16:00 95 Labs: Laboratory Tests Test 09/03/16 09/03/16 09/03/16 05:40 06:49 11:18 White Blood Count 18.3 TH/MM3 (4.0-11.0) Red Blood Count 4.03 MIL/MM3 (4.50-5.90) Hemoglobin 11.2 GM/DL (13.0-17.0) Hematocrit 33.4 % (39.0-51.0) Mean Corpuscular Volume 82.8 FL (80.0-100.0) Mean Corpuscular Hemoglobin 27.8 PG (27.0-34.0) Mean Corpuscular Hemoglobin 33.6 % Concent (32.0-36.0) Red Cell Distribution Width 16.0 % (11.6-17.2) Platelet Count 162 TH/MM3 (150-450) Mean Platelet Volume 9.4 FL (7.0-11.0) Neutrophils (%) (Auto) 86.3 % (16.0-70.0) Lymphocytes (%) (Auto) 5.7 % (9.0-44.0) Monocytes (%) (Auto) 6.7 % (0.0-8.0) Eosinophils (%) (Auto) 0.9 % (0.0-4.0) Basophils (%) (Auto) 0.4 % (0.0-2.0) Neutrophils # (Auto) 15.8 TH/MM3 (1.8-7.7) Lymphocytes # (Auto) 1.0 TH/MM3 (1.0-4.8) Monocytes # (Auto) 1.2 TH/MM3 (0-0.9) Eosinophils # (Auto) 0.2 TH/MM3 (0-0.4) Basophils # (Auto) 0.1 TH/MM3 (0-0.2) CBC Comment AUTO DIFF Differential Total Cells 100 Counted Neutrophils % (Manual) 82 % (16-70) Band Neutrophils % 3 % (0-6) Lymphocytes % 4 % (9-44) Monocytes % 11 % (0-8) Neutrophils # (Manual) 15.6 TH/MM3 (1.8-7.7) Differential Comment FINAL DIFF MANUAL Platelet Estimate NORMAL (NORMAL) Platelet Morphology Comment CLUMPED (NORMAL) Keratocytes OCC (NORMAL) Sodium Level 125 MEQ/L (136-145) Potassium Level 5.0 MEQ/L (3.5-5.1) Chloride Level 89 MEQ/L (98-107) Carbon Dioxide Level 25.5 MEQ/L (21.0-32.0) Anion Gap 11 MEQ/L (5-15) Blood Urea Nitrogen 32 MG/DL (7-18) Creatinine 0.92 MG/DL (0.60-1.30) Estimat Glomerular Filtration 81 ML/MIN (>89) Rate Random Glucose 164 MG/DL (74-106) Calcium Level 8.4 MG/DL (8.5-10.1) Blood Gas Puncture Site RT RADIAL Blood Gas Patient Temperature 98.6 Blood Gas HCO3 24 mmol/L (22-26) Blood Gas Base Excess 0.4 mmol/L (-2-2) Blood Gas Oxygen Saturation 90 % (90-100) Arterial Blood pH 7.42 (7.380-7.420) Arterial Blood Partial 39 mmHg (38-42) Pressure CO2 Arterial Blood Partial 71 mmHg Pressure O2 (61-120) Arterial Blood Oxygen Content 14.6 Vol % (12.0-20.0) Arterial Blood 2.8 % (0-4) Carboxyhemoglobin Arterial Blood Methemoglobin 1.0 % (0-2) Blood Gas Hemoglobin 11.5 G/DL (12.0-16.0) Oxygen Delivery Device VENTI Blood Gas Inspired Oxygen 50 % Lactic Acid Level 1.3 mmol/L (0.4-2.0) Result Diagram: 09/03/16 0540 09/03/16 0540 (1) NSTEMI (non-ST elevated myocardial infarction) Plan: ASA, BB , statin await cath (2) Aortic stenosis (3) Hypertension Elvira Allen Sep 03, 2016 16:04
[2016-09-03] MEDS ORDERED: SODIUM CHLOR 0.9% 1000 ML INJ 1,000 ML IV SCH (16:30)
--- NOTE | 2016-09-03 19:36 | HHI.PR ---
Subjective Remarks 71 YOWM with Resp insuf, COPD,Lung infilt On PRB Desaturates on VM No fever at BS Objective Vital Signs Vital Signs Date Time Temp Pulse Resp B/P Pulse Ox O2 Delivery O2 Flow Rate FiO2 09/03/16 18:02 82 09/03/16 17:09 92 09/03/16 16:41 86 09/03/16 15:45 98.0 96 22 130/70 95 09/03/16 15:35 96 09/03/16 15:35 96 09/03/16 14:49 88 09/03/16 13:31 91 09/03/16 12:00 94 09/03/16 11:25 98.0 98 22 136/78 98 09/03/16 11:22 91 09/03/16 10:47 102 09/03/16 10:47 98.0 102 22 140/88 96 09/03/16 08:40 106 09/03/16 07:30 94 Partial Rebreather 12.00 09/03/16 04:00 99.0 90 25 151/83 92 09/03/16 04:00 88 09/03/16 03:00 92 09/03/16 02:00 106 09/03/16 01:00 96 09/03/16 00:00 84 09/02/16 23:45 98.8 109 25 147/71 90 09/02/16 23:00 83 09/02/16 22:00 84 09/02/16 21:20 18 09/02/16 21:00 90 09/02/16 20:00 94 09/02/16 19:37 90 Nasal Cannula 6.00 09/02/16 19:35 98.8 100 25 154/79 92 I/O 09/02/16 09/02/16 09/02/16 09/03/16 09/03/16 09/03/16 07:00 15:00 23:00 07:00 15:00 23:00 Intake Total 240 ml 940 ml 1320 ml Output Total 325 ml 650 ml 380 ml 700 ml Balance -85 ml 290 ml -380 ml 620 ml Intake Oral 240 ml 940 ml 720 ml IV Total 600 ml Output Urine Total 325 ml 650 ml 380 ml 700 ml # Bowel Movements 1 Result Diagram: 09/03/1640 09/03/1640 Objective Remarks GENERAL: Obese WM, mild sob SKIN: Warm and dry. HEAD: Normocephalic. EYES: No scleral icterus. No injection or drainage. NECK: Supple, trachea midline. No JVD or lymphadenopathy. CARDIOVASCULAR: Regular rate and rhythm without murmurs, gallops, or rubs. RESPIRATORY: Breath sounds equal bilaterally. No accessory muscle use. GASTROINTESTINAL: Abdomen soft, non-tender, nondistended. MUSCULOSKELETAL: No cyanosis, or edema. BACK: Nontender without obvious deformity. No CVA tenderness. A/P Assessment and Plan Resp insuff COPD Lung infilt DM Ch. Pain PLAN: Cont Abx IV Solumedrol Supplement 02 with PRB and wean 02 Aerosol nebs Monitor Kai Guerrero MD Sep 03, 2016 19:35
[2016-09-03] MEDS ORDERED: ALPRAZolam 0.5 MG TAB PO ONE (21:30)
[2016-09-03] MEDS: traZODone HCL 100 MG TAB PO SCH (21:47)
--- NOTE | 2016-09-03 23:52 | HHI.PR ---
Addendum to Inpatient Note Addendum Reason: Additional Documentation Additional Information S: Received call from nurse the patient seemed very anxious. Ordered Xanax 0.5 mg by mouth 1. By the time we came to see the patient, patient was sleeping soundly. Per nurse report, patient was doing much better. O: Vitals at the time nurse called: 160/99, pulse 99, respiratory rate 24-28, satting 93-97% on partial nonrebreather at 10 L/m. Vitals when we went to evaluate the patient: Pulse of 75, satting 99% on partial nonrebreather at 10.5 L/m GEN: Patient lying in bed asleep in no acute distress, but with apparent obstructive sleep apnea and nonrebreather in place. HEENT: Normocephalic atraumatic. Moist mucous membranes. Cardiovascular: Warm and well-perfused extremities. Respiratory: Patient seems to be having some obstructive sleep apnea where his abdomen is moving but it does not sound like he is moving any air. Lung sounds are tight with minimal bibasilar crackles. However, patient is moving air well. Except for some belly breathing, no signs of respiratory distress, including no accessory muscle use, no tachypnea. Abdomen: Nondistended Neuro/psych: Asleep A/P: 71-year-old man here with diagnoses of NSTEMI and severe sepsis was having some respiratory distress earlier in the day which required him to be put on nonrebreather. - Stop IV fluids because of minimal bibasilar crackles appreciated on exam - Duo nebs already scheduled - If patient has any more signs or symptoms of respiratory distress, consider Lasix 20 mg IV 1, BiPAP Patient seen and discussed with Dr. Hay Reyes. Patient discussed with patient's nurse. (Hay Martinez MD R1) Hay Martinez MD R1 Sep 03, 2016 23:52 She Harris MD Sep 06, 2016 08:39
[2016-09-04] VITALS (21 sets, daily range): BP systolic 123–150; BP diastolic 53–71; PULSE 76–144; RESP 22–26; TEMP 96.6–98.6; O2SAT 93–100
[2016-09-04] MEDS: methylPREDNISolone SOD SUCC 40 MG/1 ML VIAL IV SCH ×4 (00:37→23:47)
[2016-09-04] MEDS: PIPERACIL-TAZO 3.375 GM PREMIX 50 ML IV SCH ×2 (00:38→05:57)
[2016-09-04] MEDS: VANCOMYCIN 1,000 MG/NS 250 ML IV SCH ×4 (01:55→11:46)
[2016-09-04 05:24] LABS: AUTOMATED NEUTROPHIL # 14.3 TH/MM3 (1.8-7.7); BASOPHIL % 0.1 % (0.0-2.0); EOSINOPHIL % 0.2 % (0.0-4.0); HEMATOCRIT 32.4 % (39.0-51.0); HEMO FLAGS DIFF FINAL; LYMPH % 4.6 % (9.0-44.0); LYMPHOCYTE # 0.7 TH/MM3 (1.0-4.8); MEAN CELL VOLUME 81.9 FL (80.0-100.0); MEAN CORPUSCULAR HEMOGLOBIN 27.9 PG (27.0-34.0); MONO % 6.2 % (0.0-8.0); NEUT % 88.9 % (16.0-70.0); PLATELET COUNT 174 TH/MM3 (150-450); RED BLOOD COUNT 3.96 MIL/MM3 (4.50-5.90); RED CELL DISTRIBUTION WIDTH 16.3 % (11.6-17.2); WHITE BLOOD COUNT 16.1 TH/MM3 (4.0-11.0)
[2016-09-04 05:49] LABS: ALKALINE PHOSPHATASE 146 U/L (45-117); ALT (GPT) 49 U/L (12-78); ANION GAP 7 MEQ/L (5-15); AST (GOT) 48 U/L (15-37); BICARBONATE 28.7 MEQ/L (21.0-32.0); BLOOD UREA NITROGEN 34 MG/DL (7-18); CHLORIDE 93 MEQ/L (98-107); GLOMERULAR FILTRATION RATE 90 ML/MIN (>89); POTASSIUM 4.7 MEQ/L (3.5-5.1); SODIUM (NA) 129 MEQ/L (136-145); TOTAL BILIRUBIN ADULT 0.9 MG/DL (0.2-1.0)
[2016-09-04] MEDS: HEPARIN SODIUM - SQ 10,000 UNITS/ML VIAL SQ SCH ×3 (05:57→21:22)
[2016-09-04] MEDS: INSULIN DETEMIR 100 UNITS/ML VIAL SQ SCH ×2 (05:57→21:00)
[2016-09-04] MEDS: LEVOTHYROXINE SODIUM 50 MCG TAB PO SCH (05:57)
[2016-09-04] MEDS: INSULIN ASPART SUPPLEMENTAL SCALE SQ SCH ×4 (07:00→21:22)
[2016-09-04] MEDS: RESP: ALBUTEROL 2.5 MG/IPRATROPIUM 0.5 MG NEB (SCH) NEB ×6 (07:42→23:54)
--- NOTE | 2016-09-04 08:25 | HHI.FPPN ---
Objective Vitals Vital Signs Date Time Temp Pulse Resp B/P Pulse Ox O2 Delivery O2 Flow Rate FiO2 09/04/16 07:48 79 09/04/16 07:45 100 Partial Rebreather 10.00 09/04/16 07:44 100 Non-Rebreather 15.00 09/04/16 03:56 98.1 89 22 133/53 98 09/03/16 23:47 98.1 102 24 160/84 92 09/03/16 20:00 97.5 99 28 160/89 95 09/03/16 19:53 96 Partial Rebreather 10.00 09/03/16 18:02 82 09/03/16 17:09 92 09/03/16 16:41 86 09/03/16 15:45 98.0 96 22 130/70 95 09/03/16 15:35 96 09/03/16 15:35 96 09/03/16 14:49 88 09/03/16 13:31 91 09/03/16 12:00 94 09/03/16 11:25 98.0 98 22 136/78 98 09/03/16 11:22 91 09/03/16 10:47 102 09/03/16 10:47 98.0 102 22 140/88 96 09/03/16 08:40 106 I/O 09/03/16 09/03/16 09/03/16 09/04/16 09/04/16 09/04/16 07:00 15:00 23:00 07:00 15:00 23:00 Intake Total 1320 ml Output Total 380 ml 700 ml Balance -380 ml 620 ml Intake Oral 720 ml IV Total 600 ml Output Urine Total 380 ml 700 ml Result Diagram: 09/04/1644009/04/16440 Objective Remarks Gen.: No acute distress. Sleeping Head: Normocephalic. Atraumatic. EENT: Pupils equal round and reactive to light. Nose without drainage. Airway intact. Throat without injection. Cardiovascular: Regular rate and rhythm. No murmurs, rubs or gallops. Respiratory: Chest tight with rhonchi. Abdomen: Soft, nontender, nondistended. No peritoneal signs. Musculoskeletal: No gross deformities. No edema. Skin: No obvious rashes or erythema. Neuro: Sensory and motor grossly intact. Cranial nerves II through XII grossly intact. Psych: Appropriate mood and affect A/P Assessment and Plan 71-year-old male who presented with a 5 day history of shortness of breath and nonproductive cough. ACS rule out positive for NSTEMI. Patient has a history of COPD and was admitted with sepsis with cardiology consultation for NSTEMI. Discussed with Dr. Harris and Dr. Perry, PGY 2 Discharge Planning Pending clinical improvement Problem List: (1) Severe sepsis Status: Resolved Plan: Septic on admission -WBC increased to 18.3 today compared to 10.6 yesterday 09/02 -CXR on 09/02 showed increasing severity bilateral mixed interstitial and alveolar infiltrates -Repeat chest x-ray today 09/03 -Start Vancomycin 1250mg IV Q12h with pharmacy consult and Zosyn 3.375mg IV Q6h Continue azithromycin 500 mg PO Q24h started on 09/01 Repeat blood cultures -Repeat lactic acid (2) NSTEMI (non-ST elevated myocardial infarction) Status: Acute Plan: Patient with elevated troponins to 1.[address] elevations in V1 V3. Cardiology following Left heart catheter when clinically able to perform procedure (3) Aortic stenosis Status: Acute Plan: Cardiothoracic surgery consulted Cardiology and cardiothoracic surgery to discuss plans going forward. Likely will optimize medical management for the infectious process prior to performing any procedures. Pulmonology consult given high surgical risk (4) Pneumonia Status: Acute Plan: See plan for severe sepsis above (5) CHF due to valvular disease Status: Acute Plan: Echo 09/02 showed EF of 5055 percent. Aortic valve with moderate to severe stenosis. Cardiology consulted, appreciate recommendations -Cardiothoracic surgery consulted -Coreg 3.125 mg by mouth every 12 hours (6) PHILIPPE (acute kidney injury) Status: Resolved Plan: Likely prerenal in origin. Resolved. (7) Diabetes Status: Acute Plan: Patient's home regimen is NPH 25 units every morning and 50 units daily at bedtime. Required 12 units of SSRI in the last 24 hours Will increase Levemir to 30 units tin the am and 25 at nite with low-dose sliding scale insulin. Adjust as necessary. (8) COPD exacerbation Status: Acute Plan: Patient with known COPD and [id number] history of smoking. Albuterol every 2 hours when necessary DuoNeb nebs every 4 hours scheduled Solu-Medrol 40 mg every 6 hours (9) Hyponatremia Status: Acute Plan: -Pseudohyponatremia vs SIADH vs some element of both -Glucose was initially elevated at admission but has trended down since to 164 this am -But even with 422 glucose, corrected sodium should be ~130, which is still below normal limits -Will order serum osmolality and urine sodium, and urine osmolality (10) Hypertension Status: Acute Plan: Continue Coreg and amlodipine. Hydralazine when necessary. Losartan held by cardiology secondary to hyperkalemia (11) Thrombocytopenia Status: Acute Plan: Improving Continue to monitor (12) Anxiety and depression Status: Acute Plan: -Continue home medications as follows: -Trazodone 100 mg by mouth daily -Sertraline 100 mg by mouth daily (13) BPH (benign prostatic hyperplasia) Status: Acute Plan: -History of BPH -Patient states history of using Flomax but not on current list of medications -Will consider starting Flomax if patient has symptoms (14) FEN/DVT PPX/GI PPX Status: Acute Plan: Fluids: Hep-Lock IV Electrolytes: Will monitor and replace as needed Nutrition: Heart healthy diet DVT Prophylaxis: Heparin 5000 units every 8 hours GI Prophylaxis: Protonix IV 40 mg daily Problem Qualifiers (1) Pneumonia: Qualified Code: J18.9 - Pneumonia of both lungs due to infectious organism, unspecified part of lung (2) Diabetes: Rupali Eddy MD R1 Sep 04, 2016 08:25
[2016-09-04] MEDS: PREGABALIN 75 MG CAP PO SCH ×2 (08:34→21:21)
[2016-09-04] MEDS: PRIMIDONE 50 MG TAB PO SCH ×3 (08:34→17:18)
[2016-09-04] MEDS: CARVEDILOL 3.125 MG TAB PO SCH (08:34)
[2016-09-04] MEDS: ASPIRIN 325 MG TAB PO SCH (08:36)
[2016-09-04] MEDS: busPIRone HCL 10 MG TAB PO SCH ×2 (08:36→21:21)
[2016-09-04] MEDS: SERTRALINE HCL 100 MG TAB PO SCH (08:36)
[2016-09-04] MEDS: PRAVASTATIN SOD 40 MG TAB PO SCH (08:36)
--- NOTE | 2016-09-04 08:36 | HHI.FPPN ---
Subjective Remarks Patient was lying in bed, seemed lethargic and very sleepy with increased work of breathing. He was on 100% nonrebreather at 10 L for more than 24 hours and desaturated when taken off the nonrebreather or when moved in bed. The night team was paged by the patient's nurse who noted that he had obstructive sleep apnea with increased respiratory effort. His IV fluids were discontinued at that time and he received a one-time dose of Xanax 0.5 mg which calmed him down. At 8 AM, the patient's moaning nurse paged me to inform me that they try to move him and he desaturated to the 70%. The night nurse also gave me reports that he desaturated multiple times with the lowest being 50%. He always relaxed after receiving Xanax. Due to patient's desaturations on and dependence on 100% oxygen by nonrebreather for more than 24 hours, with noted increased work of breathing, the decision was made to transfer him to the ICU for administration of BiPAP or possible intubation. The windshield installer Dr. Schneider was consulted and agreed to the transfer. Objective Vitals Vital Signs Date Time Temp Pulse Resp B/P Pulse Ox O2 Delivery O2 Flow Rate FiO2 09/04/16 07:48 79 09/04/16 07:45 100 Partial Rebreather 10.00 09/04/16 07:44 100 Non-Rebreather 15.00 09/04/16 06:00 76 09/04/16 05:00 80 09/04/16 04:00 82 09/04/16 03:56 98.1 89 22 133/53 98 09/04/16 03:00 80 09/04/16 02:00 88 09/04/16 01:00 92 09/04/16 00:00 76 09/03/16 23:47 98.1 102 24 160/84 92 09/03/16 23:00 76 09/03/16 22:00 98 09/03/16 21:00 98 09/03/16 20:00 100 09/03/16 20:00 97.5 99 28 160/89 95 09/03/16 19:53 96 Partial Rebreather 10.00 09/03/16 19:00 98 09/03/16 18:02 82 09/03/16 17:09 92 09/03/16 16:41 86 09/03/16 15:45 98.0 96 22 130/70 95 09/03/16 15:35 96 09/03/16 15:35 96 09/03/16 14:49 88 09/03/16 13:31 91 09/03/16 12:00 94 09/03/16 11:25 98.0 98 22 136/78 98 09/03/16 11:22 91 09/03/16 10:47 102 09/03/16 10:47 98.0 102 22 140/88 96 09/03/16 08:40 106 I/O 09/03/16 09/03/16 09/03/16 09/04/16 09/04/16 09/04/16 07:00 15:00 23:00 07:00 15:00 23:00 Intake Total 1320 ml Output Total 380 ml 700 ml Balance -380 ml 620 ml Intake Oral 720 ml IV Total 600 ml Output Urine Total 380 ml 700 ml Result Diagram: 09/04/1644009/04/16440 Objective Remarks Gen.: Lying in bed, nonrebreather mask in place. Lethargic, sleepy, appears in moderate respiratory distress Head: Normocephalic. Atraumatic. EENT: Pupils equal round and reactive to light. Nose without drainage. Airway intact. Cardiovascular: Regular rate and rhythm. Systolic murmur heard best in the aortic area Respiratory: Chest tight with rhonchi. Minimal bibasilar crackles Abdomen: Soft, nontender, nondistended. No peritoneal signs. Musculoskeletal: No gross deformities. No edema. Skin: No obvious rashes or erythema. Neuro: Sensory and motor grossly intact. Cranial nerves II through XII grossly intact. Psych: Smiles when awake, interacts with examiner, then goes right back to sleep A/P Assessment and Plan 71-year-old male who presented with a 5-day history of shortness of breath and nonproductive cough. ACS rule out positive for NSTEMI. Patient has a history of COPD and was admitted with sepsis with cardiology consultation for NSTEMI. Developed respiratory distress on 09/04. Had been on 100% oxygen by nonrebreather for greater than 24 hours with desaturations down to 70% when moved in bed or when mask is taken off. Transferred to the ICU with windshield installer consultation. Discussed with Dr. Harris and Dr. Perry, PGY 2 Discharge Planning Pending clinical improvement Problem List: (1) Respiratory distress Status: Acute Plan: -Was on 10L 100% 02 by nonrebreather for >24 hours -Desaturated to as low as 60% when moved or when mask was taken off briefly -Transferred to the ICU with windshield installer consult -Half maintenance fluids discontinued -Lasix IV administered -Chest x-ray unchanged from previous day -ABG ordered (2) Severe sepsis Status: Resolved Plan: Septic on admission -WBC decreased to 16.1 today compared to 18.3 yesterday 09/03 -CXR on 09/04 showed no change in moderate severity bilateral mixed interstitial and alveolar infiltrates -Continue Vancomycin 1250mg IV Q12h with pharmacy consult and Zosyn 3.375mg IV Q6h Continue azithromycin 500 mg PO Q24h started on 09/01 Repeat blood cultures pending -Repeat lactic acid WNL at 1.3 (3) NSTEMI (non-ST elevated myocardial infarction) Status: Acute Plan: -Patient with elevated troponins to 1.[address] elevations in V1 V3. -Cardiology following -Left heart catheter when clinically able to perform procedure (4) Aortic stenosis Status: Acute Plan: -Cardiothoracic surgery consulted -Cardiology and cardiothoracic surgery to discuss plans going forward -Will need to optimize medical management for the infectious process prior to performing any procedures. -Pulmonology consulted given high surgical risk (5) Pneumonia Status: Acute Plan: See plan for severe sepsis above (6) CHF due to valvular disease Status: Acute Plan: Echo performed omn 09/02 showed EF of 5055 percent. Aortic valve with moderate to severe stenosis. Cardiology consulted, appreciate recommendations -Cardiothoracic surgery consulted -Coreg 3.125 mg by mouth every 12 hours (7) Diabetes Status: Acute Plan: Patient's home regimen is NPH 25 units every morning and 50 units daily at bedtime -Continue Levemir 30 units in the a.m. and 25 units at night -SSI -Adjust insulin regimen as needed (8) COPD exacerbation Status: Acute Plan: Patient with known COPD and [id number] history of smoking Albuterol every 2 hours when necessary DuoNeb nebs every 4 hours scheduled Solu-Medrol 60 mg every 8 hours (9) Hyponatremia Status: Acute Plan: -Pseudohyponatremia vs SIADH vs some element of both -Sodium slightly increased to 129 today compared to 125 yesterday 2/24 -Potassium within normal limits at 4.7 -Glucose was initially elevated at admission but has trended down with Levemir and SSI -Serum osmolality within normal limits at 283 -Random urine sodium within normal limits at 8 -Urine osmolality within normal limits at 530 -Patient received 1.4L of normal saline in the last 24 hours -The numbers above favor a diagnosis of pseudohyponatremia (10) Hypertension Status: Acute Plan: Continue Coreg and amlodipine. Hydralazine when necessary. Losartan held by cardiology secondary to hyperkalemia (11) Thrombocytopenia Status: Acute Plan: Improving Continue to monitor (12) Anxiety and depression Status: Acute Plan: -Continue home medications as follows: -Trazodone 100 mg by mouth daily -Sertraline 100 mg by mouth daily (13) BPH (benign prostatic hyperplasia) Status: Acute Plan: -History of BPH -Patient states history of using Flomax but not on current list of medications -Will consider starting Flomax if patient has symptoms (14) FEN/DVT PPX/GI PPX Status: Acute Plan: Fluids: Hep-Lock IV Electrolytes: Will monitor and replace as needed Nutrition: Heart healthy diet DVT Prophylaxis: Heparin 5000 units every 8 hours GI Prophylaxis: Protonix IV 40 mg daily Problem Qualifiers (1) Aortic stenosis: Qualified Code: I35.0 - Aortic valve stenosis, unspecified etiology (2) Pneumonia: Qualified Code: J18.9 - Pneumonia of both lungs due to infectious organism, unspecified part of lung (3) Diabetes: (4) Hypertension: Qualified Code: I10 - Essential hypertension Rupali Eddy MD R1 Sep 04, 2016 08:36
--- NOTE | 2016-09-04 09:11 | RADRPT ---
EXAM DATE/TIME: 09/04/2016 08:43 [facility] COMPARISON: CHEST SINGLE AP, September 03, 2016, 10:00. INDICATIONS : Shortness of breath. MEDICAL HISTORY : Chronic obstructive pulmonary disease, leaking heart valve, lactic acidosis. SURGICAL HISTORY : Cardiac stent. ENCOUNTER: Initial ACUITY: 1 week PAIN SCORE: 0/10 LOCATION: chest FINDINGS: Single AP view of the chest. Moderate severity diffuse pulmonary parenchymal opacity is again seen. N o significant interval change. No evidence of pleural effusion or pneumothorax. Cardiac silhouette is mildly enlarged but unchanged. CONCLUSION: No significant change with persistent moderate severity bilateral diffuse parenchymal opacity. Differ ential diagnosis includes pulmonary edema and infection. Jasson Cobos MD on September 04, 2016 at 9:09 Board Certified Radiologist. This report was verified electronically.
[2016-09-04] MEDS ORDERED: FUROSEMIDE 40 MG/4 ML VIAL IV PUSH ONE (10:00)
[2016-09-04 10:46] LABS: BLOOD GAS BASE EXCESS 0.7 mmol/L (-2-2); BLOOD GAS CARBOXYHEMOGLOBIN 2.1 % (0-4); BLOOD GAS HCO3 25 mmol/L (22-26); BLOOD GAS O2 HGB SATURATION 97 % (90-100); BLOOD GAS OXYGEN CONTENT 15.5 Vol % (12.0-20.0); BLOOD GAS PCO2 41 mmHg (38-42); BLOOD GAS PO2 189 mmHg (61-120); BLOOD GAS TOTAL HGB 11.1 G/DL (12.0-16.0); TEMP CORR TO 98.6
[2016-09-04 10:47] LABS: CRITICAL VALUE NO
[2016-09-04 10:48] LABS: DRAW SITE LT RADIAL; NUMBER OF ARTERIAL PUNCTURES 2
[2016-09-04 10:50] LABS: OXYGEN DEVICE PRB
--- NOTE | 2016-09-04 11:08 | PD.CARD.PN ---
Subjective Subjective Remarks Denies dyspnea, CP, dizziness, palpitations. Slept well. Objective Medications Item Value Date Time Furosemide 40 mg 09/04/16 1800 (Lasix Inj) BID@,18/IV PUSH Amlodipine 10 mg 09/02/16 0900 Besylate DAILY/PO 09/04/16 0834 (Norvasc) Heparin Sodium 5,000 units 09/01/16 1400 (Porcine) Q8HR/SQ 09/04/16 0557 (Heparin Inj) Aspirin 325 mg 09/01/16 0900 (Aspirin) DAILY/PO 09/04/16 0836 Carvedilol 3.125 mg 09/01/16 0900 (Coreg) Q12HR/PO 09/04/16 0834 Vital Signs / I&O Vital Signs Date Time Temp Pulse Resp B/P Pulse Ox O2 Delivery O2 Flow Rate FiO2 09/04/16 10:10 99 Bi-Pap 50 09/04/16 10:00 80 09/04/16 10:00 100 09/04/16 09:45 95 Non-Rebreather 15.00 09/04/16 08:48 88 09/04/16 08:48 97.4 88 26 150/71 93 09/04/16 07:48 79 09/04/16 07:45 100 Partial Rebreather 10.00 09/04/16 07:44 100 Non-Rebreather 15.00 09/04/16 06:00 76 09/04/16 05:00 80 09/04/16 04:00 82 09/04/16 03:56 98.1 89 22 133/53 98 09/04/16 03:00 80 09/04/16 02:00 88 09/04/16 01:00 92 09/04/16 00:00 76 09/03/16 23:47 98.1 102 24 160/84 92 09/03/16 23:00 76 09/03/16 22:00 98 09/03/16 21:00 98 09/03/16 20:00 100 09/03/16 20:00 97.5 99 28 160/89 95 09/03/16 19:53 96 Partial Rebreather 10.00 09/03/16 19:00 98 09/03/16 18:02 82 09/03/16 17:09 92 09/03/16 16:41 86 09/03/16 15:45 98.0 96 22 130/70 95 09/03/16 15:35 96 09/03/16 15:35 96 09/03/16 14:49 88 09/03/16 13:31 91 09/03/16 12:00 94 09/03/16 11:25 98.0 98 22 136/78 98 09/03/16 11:22 91 I/O 09/03/16 09/03/16 09/03/16 09/04/16 09/04/16 09/04/16 07:00 15:00 23:00 07:00 15:00 23:00 Intake Total 1320 ml 1090 ml Output Total 380 ml 700 ml 800 ml Balance -380 ml 620 ml 290 ml Intake Oral 720 ml 240 ml IV Total 600 ml 850 ml Output Urine Total 380 ml 700 ml 800 ml # Bowel Movements 0 Physical Exam GENERAL: Well developed, well nourished. No acute distress. HEENT: Jugular venous pressure is normal. CHEST: Lungs clear to auscultation anteriorly. CARDIAC: Difficult exam. Distant heart sounds. Regular rhythm and rate, no S3 , I-II/ STEVE base. S2 possibly diminished. ABDOMEN: Soft, nontender, no hepatosplenomegaly. Bowel sounds present. EXTREMITIES: No clubbing, cyanosis, or edema. Laboratory Laboratory Tests Test 09/03/16 09/03/16 09/03/16 09/04/16 11:18 15:17 16:30 04:41 Lactic Acid Level 1.3 mmol/L Serum Osmolality 283 MOSM/KG Urine Osmolality 530 MOSM/KG Urine Random Creatinine 97.1 MG/DL Urine Random Sodium 8 MEQ/L White Blood Count 16.1 TH/MM3 Red Blood Count 3.96 MIL/MM3 Hemoglobin 11.0 GM/DL Hematocrit 32.4 % Mean Corpuscular Volume 81.9 FL Mean Corpuscular Hemoglobin 27.9 PG Mean Corpuscular Hemoglobin 34.0 % Concent Red Cell Distribution Width 16.3 % Platelet Count 174 TH/MM3 Mean Platelet Volume 8.4 FL Neutrophils (%) (Auto) 88.9 % Lymphocytes (%) (Auto) 4.6 % Monocytes (%) (Auto) 6.2 % Eosinophils (%) (Auto) 0.2 % Basophils (%) (Auto) 0.1 % Neutrophils # (Auto) 14.3 TH/MM3 Lymphocytes # (Auto) 0.7 TH/MM3 Monocytes # (Auto) 1.0 TH/MM3 Eosinophils # (Auto) 0.0 TH/MM3 Basophils # (Auto) 0.0 TH/MM3 CBC Comment DIFF FINAL Differential Comment Sodium Level 129 MEQ/L Potassium Level 4.7 MEQ/L Chloride Level 93 MEQ/L Carbon Dioxide Level 28.7 MEQ/L Anion Gap 7 MEQ/L Blood Urea Nitrogen 34 MG/DL Creatinine 0.84 MG/DL Estimat Glomerular Filtration 90 ML/MIN Rate Random Glucose 62 MG/DL Calcium Level 8.2 MG/DL Total Bilirubin 0.9 MG/DL Aspartate Amino Transf 48 U/L (AST/SGOT) Alanine Aminotransferase 49 U/L (ALT/SGPT) Alkaline Phosphatase 146 U/L B-Type Natriuretic Peptide 658 PG/ML Total Protein 6.8 GM/DL Albumin 2.6 GM/DL Test 09/04/16 10:44 Blood Gas Puncture Site LT RADIAL Blood Gas Patient Temperature 98.6 Blood Gas HCO3 25 mmol/L Blood Gas Base Excess 0.7 mmol/L Blood Gas Oxygen Saturation 97 % Arterial Blood pH 7.40 Arterial Blood Partial 41 mmHg Pressure CO2 Arterial Blood Partial 189 mmHg Pressure O2 Arterial Blood Oxygen Content 15.5 Vol % Arterial Blood 2.1 % Carboxyhemoglobin Arterial Blood Methemoglobin 1.0 % Blood Gas Hemoglobin 11.1 G/DL Oxygen Delivery Device PRB Assessment and Plan Problem List: (1) NSTEMI (non-ST elevated myocardial infarction) Assessment and Plan: Stable overnight. No definite angina. EF normal by echo. For cath possibly Tuesday as long as respiratory status improves over the weekend. (2) Aortic stenosis Assessment and Plan: Mean gradient reportedly only 20 mm Hg by echo. Exam difficult, possibly only moderate . For cath for further evaluation possibly Tuesday as long as respiratory status improves over the weekend. (3) Hypertension Assessment and Plan: Fluctuating BP's. Continue to monitor. Increase carvedilol dose. (4) Congestive heart failure (CHF) Assessment and Plan: Diffuse parenchymal opacities on CXR. Suspect pulmonary edema. Rec diuresis. Code Status full code Discussed Condition With patient Problem Qualifiers (1) Aortic stenosis: Qualified Code: I35.0 - Aortic valve stenosis, unspecified etiology (2) Hypertension: Qualified Code: I10 - Essential hypertension (3) Congestive heart failure (CHF): Gibran Lyle MD Sep 04, 2016 11:08
--- NOTE | 2016-09-04 11:40 | PD.CONS ---
[facility] Service Critical Care Medicine Consult Requested By Dr. Eddy Reason for Consult Acute hypoxemic respiratory failure Pulmonary edema/CHF Primary Care Physician Non-Staff History of Present Illness The patient is a 71-year-old male with past medical history significant for COPD, aortic stenosis, hypertension and diabetes who presented to the emergency department with progressive shortness of breath and nonproductive cough for last 5 days. He was diagnosed and admitted to service on with [id number] [place], COPD exacerbation and probable pneumonia. He had a previous heart catheterization in 2014, was told at that time he needed to have aortic valve replacement. He was started on IV antibiotics with Rocephin and azithromycin and also was placed on IV steroids and DuoNeb breathing treatment for probable COPD exacerbation. All the cultures so far negative, also negative for influenza A and B, negative for Streptococcus and Legionella antigen. Cardiology was consulted, and echo showed moderate to severe aortic stenosis. Cardiothoracic surgery was also consulted and is following, plan for cardiac catheterization this Tuesday morning. A Halicat was called today as the patient was increasingly lethargic with increased dyspnea and hypoxia. He desaturated to the 70% when RN attempted to move him. Chest x-ray showed bilateral pulmonary edema worsening compared to admission. He was moved to the ICU and critical care medicine was consulted. I evaluated the patient in ICU. He is tachypneic on 100% nonrebreather. Examination revealed bilateral crackles. 60 mg of IV Lasix stat given and patient was ordered to be placed on BiPAP at 12/7. BNP was 658 Review of Systems ROS Limitations: Other (as Per [facility]) Past Family Social History Allergies: Coded Allergies: Niacin (Unverified Allergy, Severe, GENERALIZED BURNING AND ITCHING, ) Past Medical History Hypertension Diabetes COPD Aortic stenosis-previously surgery recommended, patient did not pursue Anxiety and depression BPH Past Surgical History Bilateral knee surgery Reported Medications Trazodone (Trazodone HCl) 100 Mg Tab 100 Mg PO HS Sertraline (Sertraline HCl) 100 Mg Tab 100 Mg PO DAILY Primidone 50 Mg Tab 100 Mg PO TID Lyrica (Pregabalin) 150 Mg Cap 150 Mg PO BID Pravastatin 40 Mg Tab 40 Mg PO DAILY Omeprazole 20 Mg Cap Metformin ER (Metformin HCl) 500 Mg Jose Alfredo 500 Mg PO DAILY Meloxicam 15 Mg Tab 15 Mg PO DAILY Losartan (Losartan Potassium) 50 Mg Tab 50 Mg PO DAILY Levothyroxine (Levothyroxine Sodium) 50 Mcg Tab 50 Mcg PO DAILY Novolog Inj Sliding Scale As Directed. Glucose (Dextrose) 4 Gm Chew 4 Gm CHEW DIRECTED Cholecalciferol (Cholecalciferol (Bulk)) 1 Cry Cry Buspirone (Buspirone HCl) 10 Mg Tab 10 Mg PO BID Aspirin 81 (Aspirin) 81 Mg Tabdr 81 Mg PO DAILY Active Ordered Medications Reviewed Family History Reviewed, noncontributory Social History [id number] history of smoking, quit 8 years ago Did not drink alcohol Physical Exam Vital Signs Vital Signs Date Time Temp Pulse Resp B/P Pulse Ox O2 Delivery O2 Flow Rate FiO2 09/04/16 10:10 99 Bi-Pap 50 09/04/16 10:00 80 09/04/16 10:00 100 09/04/16 09:45 95 Non-Rebreather 15.00 09/04/16 08:48 88 09/04/16 08:48 97.4 88 26 150/71 93 09/04/16 07:48 79 09/04/16 07:45 100 Partial Rebreather 10.00 09/04/16 07:44 100 Non-Rebreather 15.00 09/04/16 06:00 76 09/04/16 05:00 80 09/04/16 04:00 82 09/04/16 03:56 98.1 89 22 133/53 98 09/04/16 03:00 80 09/04/16 02:00 88 09/04/16 01:00 92 09/04/16 00:00 76 09/03/16 23:47 98.1 102 24 160/84 92 09/03/16 23:00 76 09/03/16 22:00 98 09/03/16 21:00 98 09/03/16 20:00 100 09/03/16 20:00 97.5 99 28 160/89 95 09/03/16 19:53 96 Partial Rebreather 10.00 09/03/16 19:00 98 09/03/16 18:02 82 09/03/16 17:09 92 09/03/16 16:41 86 09/03/16 15:45 98.0 96 22 130/70 95 09/03/16 15:35 96 09/03/16 15:35 96 09/03/16 14:49 88 09/03/16 13:31 91 09/03/16 12:00 94 Physical Exam Gen: 71-year-old male lying in ICU bed, nonrebreather mask in place. Moderate respiratory distress Head: Normocephalic. Atraumatic. EENT: Pupils equal round and reactive to light. Cardiovascular: Regular rate and rhythm. Systolic murmur heard in the aortic area Respiratory: Bilateral rhonchi and bibasilar crackles Abdomen: Soft, nontender, nondistended. No peritoneal signs. Musculoskeletal: No gross deformities. No edema. Skin: No obvious rashes or erythema. Neuro: Alert awake oriented 3. No focal deficits Laboratory Laboratory Tests Test 09/03/16 09/03/16 09/04/16 09/04/16 15:17 16:30 04:41 10:44 Serum Osmolality 283 Urine Osmolality 530 Urine Random Creatinine 97.1 Urine Random Sodium 8 White Blood Count 16.1 Red Blood Count 3.96 Hemoglobin 11.0 Hematocrit 32.4 Mean Corpuscular Volume 81.9 Mean Corpuscular Hemoglobin 27.9 Mean Corpuscular Hemoglobin 34.0 Concent Red Cell Distribution Width 16.3 Platelet Count 174 Mean Platelet Volume 8.4 Neutrophils (%) (Auto) 88.9 Lymphocytes (%) (Auto) 4.6 Monocytes (%) (Auto) 6.2 Eosinophils (%) (Auto) 0.2 Basophils (%) (Auto) 0.1 Neutrophils # (Auto) 14.3 Lymphocytes # (Auto) 0.7 Monocytes # (Auto) 1.0 Eosinophils # (Auto) 0.0 Basophils # (Auto) 0.0 CBC Comment DIFF FINAL Differential Comment Sodium Level 129 Potassium Level 4.7 Chloride Level 93 Carbon Dioxide Level 28.7 Anion Gap 7 Blood Urea Nitrogen 34 Creatinine 0.84 Estimat Glomerular Filtration 90 Rate Random Glucose 62 Calcium Level 8.2 Total Bilirubin 0.9 Aspartate Amino Transf 48 (AST/SGOT) Alanine Aminotransferase 49 (ALT/SGPT) Alkaline Phosphatase 146 B-Type Natriuretic Peptide 658 Total Protein 6.8 Albumin 2.6 Blood Gas Puncture Site LT RADIAL Blood Gas Patient Temperature 98.6 Blood Gas HCO3 25 Blood Gas Base Excess 0.7 Blood Gas Oxygen Saturation 97 Arterial Blood pH 7.40 Arterial Blood Partial 41 Pressure CO2 Arterial Blood Partial 189 Pressure O2 Arterial Blood Oxygen Content 15.5 Arterial Blood 2.1 Carboxyhemoglobin Arterial Blood Methemoglobin 1.0 Blood Gas Hemoglobin 11.1 Oxygen Delivery Device PRB Date/Time Procedure Status Source Growth 09/03/16 12:40 Gram Stain - Final Resulted Sputum Expectorated Sputum 09/03/16 12:40 Sputum Culture Resulted Sputum Expectorated Sputum Pending 09/03/16 11:18 Aerobic Blood Culture - Preliminary Resulted Blood Peripheral NO GROWTH IN 1 DAY 09/03/16 11:18 Anaerobic Blood Culture - Preliminary Resulted Blood Peripheral NO GROWTH IN 1 DAY 08/31/16 13:47 Legionella Antigen - Final Complete Urine Clean Catch PRESUMPTIVE NEGATIVE FOR LEGIONELLA P... 08/31/16 13:47 Streptococcus pneumoniae Antigen (M - Final Complete Urine Clean Catch PRESUMPTIVE NEGATIVE FOR STREPTOCOCCU... 08/31/16 11:24 Influenza Types A,B Antigen (CASSIDY) - Final Complete Nasal Aspirate NEGATIVE FOR FLU A AND B ANTIGEN.... Result Diagram: 09/04/1644009/04/16440 Imaging Chest x-ray shows bilateral pulmonary edema Septic Shock Reassessment Heart: Murmur Lungs: Course, Crackles Peripheral Pulses: Bounding Right Radial Bounding Left Radial Assessment and Plan Assessment and Plan NEURO: -Minimize sedation, as needed morphine for pain anxiety and heart failure RESP: Acute hypoxemic respiratory failure requiring BiPAP Pulmonary edema Probable pneumonia COPD exacerbation -BiPAP 06/16 initiated -Continue IV Solu-Medrol and DuoNeb breathing treatments -Continue Zosyn and azithromycin -It appears like worsening pulmonary edema is cardiogenic CV: Pulmonary edema most likely cardiogenic Severe aortic stenosis NSTEMI -IV Lasix 60 mg 1 and 40 every 12 -Continue aspirin, Coreg, Norvasc and pravastatin -Cardiac catheterization planned for Tuesday if respiratory status stabilizes -Cardiothoracic surgery and cardiology Dr. Dudley is following GI: -NPO except meds -Protonix for GI prophylaxis : -Monitor renal function closely. [place] catheter. ID: Probable sepsis Probable pneumonia -Continue Zosyn and azithromycin. DC Vancomycin -All cultures negative to date, hemoglobin and streptococcal antigen negative. Influenza negative HEME: -Monitor CBC, CMP, coads ENDO: Type 2 diabetes Hypothyroidism -Sliding-scale insulin. Continue Levemir Electrolyte replacement per protocol PROPH: -Bilateral lower extremity SCDs. Heparin 5000 units subcutaneous every 8 hours. Protonix for GI prophylaxis LINES: -Utilize peripheral IVs, central line if needed CC time 60 min excluding procedures Code Status Full Discussed Condition With Dr. Lyle Patient and his Minnie Marie MD Sep 04, 2016 11:40
[2016-09-04] MEDS: PIPERACIL-TAZO 4.5 GM PREMIX 100 ML IV SCH ×3 (11:45→23:46)
[2016-09-04] MEDS: AZITHROMYCIN 250 MG TAB PO SCH (11:46)
[2016-09-04] MEDS: DEXTROSE 50% IN WATER 50 ML VIAL(D50) IV PUSH PRN (11:47)
[2016-09-04 12:41] LABS: BLOOD, URINE NEG (NEG); GLUCOSE,URINE NEG (NEG); KETONE, URINE NEG (NEG); NITRITE,URINE NEG (NEG); SQUAMOUS EPITHELIAL CELL URINE <1 /hpf (0-5); URINE COLOR YELLOW (YELLW/STRAW)
[2016-09-04 12:42] LABS: COMMENT (UR) CATH-CULT NOT IND; CULTURE IF INDICATED CATH CULTURE NOT IND
[2016-09-04] MEDS: ALPRAZolam 0.5 MG TAB PO PRN (17:18)
[2016-09-04] MEDS: FUROSEMIDE 40 MG/4 ML VIAL IV PUSH SCH (17:18)
[2016-09-04 18:38] LABS: STAT YES
[2016-09-04] MEDS ORDERED: CHLORHEXIDINE GLUCONATE 2 % 1 PACK (2 CLOTHS)(extra cloths) TOP PRN (20:00)
[2016-09-04] MEDS: traZODone HCL 100 MG TAB PO SCH (21:21)
[2016-09-04] MEDS: CARVEDILOL 6.25 MG TAB PO SCH (21:21)
[2016-09-04] MEDS ORDERED: ESMOLOL HCL 100 MG/10 ML VIAL IV PUSH ONE (22:30)
[2016-09-04] MEDS: ESMOLOL DRIP INJ PREMIX 250 ML IV SCH (22:50)
[2016-09-04] MEDS ORDERED: PHARMACY ORDERED LAB XX ONE (23:45)
[2016-09-04] MEDS: CHLORHEXIDINE GLUCONATE 2 % 1 PACK (2 CLOTHS)(taper/protocol) TOP SCH (23:47)
[2016-09-05] VITALS (19 sets, daily range): BP systolic 83–132; BP diastolic 53–65; PULSE 72–124; RESP 19–26; TEMP 97.6–98.4; O2SAT 94–99
[2016-09-05] MEDS: ESMOLOL DRIP INJ PREMIX 250 ML IV SCH ×3 (00:50→07:32)
[2016-09-05] MEDS ORDERED: ALPRAZolam 1 MG TAB PO ONE (01:15)
[2016-09-05] MEDS: RESP: ALBUTEROL 2.5 MG/IPRATROPIUM 0.5 MG NEB (SCH) NEB ×5 (03:37→22:45)
[2016-09-05] MEDS: PIPERACIL-TAZO 4.5 GM PREMIX 100 ML IV SCH ×3 (04:41→17:01)
[2016-09-05] MEDS: LEVOTHYROXINE SODIUM 50 MCG TAB PO SCH (04:41)
[2016-09-05] MEDS: HEPARIN SODIUM - SQ 10,000 UNITS/ML VIAL SQ SCH ×3 (04:42→20:51)
[2016-09-05] MEDS: ALPRAZolam 0.5 MG TAB PO PRN ×2 (04:56→17:01)
[2016-09-05] MEDS: INSULIN DETEMIR 100 UNITS/ML VIAL SQ SCH ×2 (07:00→20:50)
[2016-09-05] MEDS: INSULIN ASPART SUPPLEMENTAL SCALE SQ SCH ×4 (07:31→20:50)
--- NOTE | 2016-09-05 07:37 | RADRPT ---
EXAM DATE/TIME: 09/05/2016 07:15 [place] COMPARISON: CHEST SINGLE AP, September 04, 2016, 8:43. INDICATIONS : Shortness of breath. MEDICAL HISTORY : Chronic obstructive pulmonary disease. Weak heart valve. SURGICAL HISTORY : Stent. ENCOUNTER: Initial ACUITY: 1 week PAIN SCORE: 0/10 LOCATION: Bilateral chest FINDINGS: Diffuse patchy airspace opacities persist without significant change. Probably a small left pleural e ffusion. No pneumothorax seen. Heart size stable, upper limits of normal. CONCLUSION: No significant change. Frank Vallejo MD on September 05, 2016 at 7:35 Board Certified Radiologist. This report was verified electronically.
[2016-09-05] MEDS ORDERED: DILTIAZEM HCL 25 MG/5 ML VIAL IVP ONE (07:45)
[2016-09-05] MEDS: ALBUMIN HUMAN 25% 25 GM/100 ML BAGP IV SCH ×2 (08:26→20:50)
[2016-09-05] MEDS: PREGABALIN 75 MG CAP PO SCH ×2 (08:27→20:51)
[2016-09-05] MEDS: PRIMIDONE 50 MG TAB PO SCH ×3 (08:27→17:01)
[2016-09-05] MEDS: DILTIAZEM INJ 125 MG in SODIUM CHLORIDE 0.9% INJ 100 ML IV SCH (08:27)
[2016-09-05] MEDS: CARVEDILOL 6.25 MG TAB PO SCH ×2 (08:27→20:52)
[2016-09-05] MEDS: busPIRone HCL 10 MG TAB PO SCH ×2 (08:27→20:51)
[2016-09-05] MEDS: SERTRALINE HCL 100 MG TAB PO SCH (08:27)
[2016-09-05] MEDS: PRAVASTATIN SOD 40 MG TAB PO SCH (08:27)
[2016-09-05] MEDS: ASPIRIN 325 MG TAB PO SCH (08:27)
[2016-09-05] MEDS: FUROSEMIDE 40 MG/4 ML VIAL IV PUSH SCH (08:28)
[2016-09-05] MEDS: methylPREDNISolone SOD SUCC 40 MG/1 ML VIAL IV SCH ×2 (08:28→15:21)
--- NOTE | 2016-09-05 10:06 | PD.CARD.PN ---
Subjective Subjective Remarks Feels "good". Denies dyspnea, CP, dizziness, palpitations, PND, orthopnea. Objective Medications Item Value Date Time Carvedilol 6.25 mg 09/04/16 2100 (Coreg) Q12HR/PO 09/05/16 0827 Furosemide 40 mg 09/04/16 1800 (Lasix Inj) BID@09,18/IV PUSH 09/05/16 0828 Amlodipine 10 mg 09/02/16 0900 Besylate DAILY/PO 09/05/16 08 (Norvasc) Heparin Sodium 5,000 units 09/01/16 1400 (Porcine) Q8HR/SQ 09/05/16 044 (Heparin Inj) Pravastatin Sodium 40 mg 09/01/16 0900 (Pravachol) DAILY/PO 09/05/16 08 Aspirin 325 mg 09/01/16 0900 (Aspirin) DAILY/PO 09/05/16 08 Vital Signs / I&O Vital Signs Date Time Temp Pulse Resp B/P Pulse Ox O2 Delivery O2 Flow Rate FiO2 09/05/16 08:55 95 50 09/05/16 06:00 124 09/05/16 04:30 96 50 09/05/16 04:00 97.8 79 20 101/54 96 09/05/16 04:00 79 09/05/16 04:00 96 Non-Rebreather 09/05/16 02:29 75 09/05/16 02:00 122 09/05/16 01:15 94 50 09/05/16 00:52 98 Bi-Pap 50 09/05/16 00:00 98.0 123 26 83/61 94 09/05/16 00:00 123 09/04/16 23:45 91 Bi-Pap 40 09/04/16 23:45 94 50 09/04/16 22:00 144 09/04/16 20:00 96 09/04/16 20:00 98.6 96 26 145/66 96 09/04/16 20:00 96 Non-Rebreather 09/04/16 19:39 96 Partial Rebreather 12.00 09/04/16 18:00 80 09/04/16 16:00 97.3 83 26 123/59 94 09/04/16 16:00 95 Bi-Pap 50 09/04/16 16:00 83 09/04/16 15:00 90 Bi-Pap 50 09/04/16 14:00 86 09/04/16 12:00 82 09/04/16 12:00 96 Bi-Pap 40 09/04/16 12:00 96.6 82 26 137/61 94 09/04/16 10:10 99 Bi-Pap 50 I/O 09/04/16 09/04/16 09/04/16 09/05/16 09/05/16 09/05/16 07:00 15:00 23:00 07:00 15:00 23:00 Intake Total 1706 ml 460 ml 1510 ml Output Total 3600 ml 2300 ml 350 ml Balance -1894 ml -1840 ml 1160 ml Intake Oral 480 ml 240 ml 720 ml IV Total 1226 ml 220 ml 790 ml Output Urine Total 3600 ml 2300 ml 350 ml # Bowel Movements 0 Physical Exam GENERAL: Well developed, well nourished. No acute distress. HEENT: Jugular venous pressure is normal. CHEST: Lungs clear to auscultation anteriorly. CARDIAC: Difficult exam. Distant heart sounds. Regular rhythm and rate, no S3 , I-II/ STEVE base. S2 possibly diminished. ABDOMEN: Soft, nontender, no hepatosplenomegaly. Bowel sounds present. EXTREMITIES: No clubbing, cyanosis, or edema. Laboratory Laboratory Tests Test 09/04/16 09/04/16 10:44 18:30 Blood Gas Puncture Site LT RADIAL Blood Gas Patient Temperature 98.6 Blood Gas HCO3 25 mmol/L Blood Gas Base Excess 0.7 mmol/L Blood Gas Oxygen Saturation 97 % Arterial Blood pH 7.40 Arterial Blood Partial 41 mmHg Pressure CO2 Arterial Blood Partial 189 mmHg Pressure O2 Arterial Blood Oxygen Content 15.5 Vol % Arterial Blood 2.1 % Carboxyhemoglobin Arterial Blood Methemoglobin 1.0 % Blood Gas Hemoglobin 11.1 G/DL Oxygen Delivery Device PRB Nasal Screen MRSA (PCR) NEGATIVE Assessment and Plan Problem List: (1) NSTEMI (non-ST elevated myocardial infarction) Assessment and Plan: Stable overnight. No definite angina. EF normal by echo. For cath tomorrow by Dr. Dudley (2) Aortic stenosis Assessment and Plan: Mean gradient reportedly only 20 mm Hg by echo. Exam difficult, possibly only moderate . For cath for further evaluation tomorrow. (3) Congestive heart failure (CHF) Assessment and Plan: Diffuse parenchymal opacities on CXR. Suspect pulmonary edema. Good diuresis past 24 hours. Continue same. (4) Hypertension Assessment and Plan: Mildly hypotensive last night. Continue to monitor. Code Status full code Discussed Condition With patient and family Problem Qualifiers (1) Aortic stenosis: Qualified Code: I35.0 - Aortic valve stenosis, unspecified etiology (2) Congestive heart failure (CHF): (3) Hypertension: Qualified Code: I10 - Essential hypertension Gibran Lyle MD Sep 05, 2016 10:06
--- NOTE | 2016-09-05 11:38 | EKG ---
Date Performed: 09/05/2016 Time Performed: 07:57:25 PTAGE: 71 years EKG: ATRIAL TACHYCARDIA WITH RAPID VENTRICULAR RESPONSE POOR R WAVE PROGRESSION NONSPECIFIC T WA VE ABNORMALITIES ABNORMAL ECG PREVIOUS TRACING : 08/31/2016 17.19 Compared to previous tracing, atrial tachycardia has replac ed Sinus rhythm , heart rate has increased. DOCTOR: Gibran Lyle Interpretating Date/Time 09/05/2016 11:37:09
[2016-09-05 11:43] LABS: BASOPHIL % 0.1 % (0.0-2.0); EOSINOPHIL % 0.1 % (0.0-4.0); HEMATOCRIT 29.2 % (39.0-51.0); HEMO FLAGS DIFF FINAL; LYMPH % 4.5 % (9.0-44.0); LYMPHOCYTE # 0.4 TH/MM3 (1.0-4.8); MEAN CELL VOLUME 82.6 FL (80.0-100.0); MEAN CORPUSCULAR HEMOGLOBIN 27.2 PG (27.0-34.0); MEAN CORPUSCULAR HGB CONC 32.9 % (32.0-36.0); MONO % 6.1 % (0.0-8.0); NEUT % 89.2 % (16.0-70.0); PLATELET COUNT 105 TH/MM3 (150-450); RED BLOOD COUNT 3.53 MIL/MM3 (4.50-5.90)
--- NOTE | 2016-09-05 11:52 | HHI.CCPN ---
Subjective Remarks/Hospital Course The patient is a 71-year-old male with past medical history significant for COPD, aortic stenosis, hypertension and diabetes who presented to the emergency department with progressive shortness of breath and nonproductive cough for last 5 days. He was diagnosed and admitted to FP service on with [id number] [place], COPD exacerbation and probable pneumonia. He had a previous heart catheterization in 2014, was told at that time he needed to have aortic valve replacement. He was started on IV antibiotics with Rocephin and azithromycin and also was placed on IV steroids and DuoNeb breathing treatment for probable COPD exacerbation. All the cultures so far negative, also negative for influenza A and B, negative for Streptococcus and Legionella antigen. Cardiology was consulted, and echo showed moderate to severe aortic stenosis. Cardiothoracic surgery was also consulted and is following, plan for cardiac catheterization this Tuesday. A Halicat was called today as the patient was increasingly lethargic with increased dyspnea and hypoxia. He desaturated to the 70% when RN attempted to move him. Chest x-ray showed bilateral pulmonary edema worsening compared to admission. He was moved to the ICU and critical care medicine was consulted. I evaluated the patient in ICU. He is tachypneic on 100% nonrebreather. Examination revealed bilateral crackles. 60 mg of IV Lasix stat given and patient was ordered to be placed on BiPAP at 06/16. BNP was 658 SUBJECT 09/05/16: Patient did not tolerate BiPAP overnight. Currently remains on partial nonrebreather. Urine output more than 6 L in 24 hours. He developed atrial flutter with RVR, was placed on esmolol which I have changed to Cardizem. Chest x-ray shows interval improvement in my review Objective Vital Signs Date Time Temp Pulse Resp B/P Pulse Ox O2 Delivery O2 Flow Rate FiO2 09/05/16 10:00 89 09/05/16 08:55 95 50 09/05/16 08:00 Bi-Pap 09/05/16 08:00 98.4 20 102/65 09/04/16 19:39 12.00 Intake and Output 09/04/16 09/04/16 09/05/16 08:00 16:00 00:00 Intake Total 1706 ml 460 ml Output Total 3600 ml 2300 ml Balance -1894 ml -1840 ml Result Diagram: 09/04/1644009/04/16440 Imaging Chest x-ray shows bilateral pulmonary edema Objective Remarks Gen: 71-year-old male lying in ICU bed, partial nonrebreather mask in place. Appears critically ill slightly tachypneic Head: Normocephalic. Atraumatic. EENT: Pupils equal round and reactive to light. Cardiovascular: Tachycardic possible flutter. Systolic murmur heard in the aortic area Respiratory: Bilateral rhonchi and bibasilar crackles Abdomen: Soft, nontender, nondistended. No peritoneal signs. Musculoskeletal: No gross deformities. No edema. Skin: No obvious rashes or erythema. Neuro: Alert awake oriented 3. No focal deficits A/P Assessment and Plan NEURO: -Minimize sedation, as needed morphine for pain anxiety and heart failure RESP: Acute hypoxemic respiratory failure requiring BiPAP Pulmonary edema Probable pneumonia COPD exacerbation -BiPAP 12/ PRN, patient did not tolerate overnight -Continue IV Solu-Medrol and DuoNeb breathing treatments -Continue Zosyn and azithromycin -EzPAP, Acappella every 6 hours CV: Pulmonary edema most likely cardiogenic Severe aortic stenosis NSTEMI -IV Lasix 40mg every 12 -Continue aspirin, Coreg, Norvasc and pravastatin -Cardiac catheterization planned for Tuesday if respiratory status stabilizes -Cardiothoracic surgery and cardiology Dr. Dudley is following GI: -Advance diet to cardiac, 1800 ADA -Protonix for GI prophylaxis : -Monitor renal function closely. [place] catheter. -IV Lasix as above ID: Probable sepsis Probable pneumonia -Continue Zosyn and azithromycin. DC Vancomycin -All cultures negative to date, hemoglobin and streptococcal antigen negative. Influenza negative HEME: -Monitor CBC, CMP, coags ENDO: Type 2 diabetes Hypothyroidism -Sliding-scale insulin. Continue Levemir -Electrolyte replacement per protocol PROPH: -Bilateral lower extremity SCDs. Heparin 5000 units subcutaneous every 8 hours. Protonix for GI prophylaxis LINES: -Utilize peripheral IVs, central line if needed CC time 32 min excluding procedures Minnie Marie MD Sep 05, 2016 11:52
[2016-09-05 12:13] LABS: ALKALINE PHOSPHATASE 158 U/L (45-117); ALT (GPT) 81 U/L (12-78); ANION GAP 12 MEQ/L (5-15); AST (GOT) 106 U/L (15-37); BICARBONATE 29.5 MEQ/L (21.0-32.0); BLOOD UREA NITROGEN 42 MG/DL (7-18); CHLORIDE 88 MEQ/L (98-107); GLOMERULAR FILTRATION RATE 43 ML/MIN (>89); MAGNESIUM 2.4 MG/DL (1.5-2.5); POTASSIUM 4.7 MEQ/L (3.5-5.1); SODIUM (NA) 129 MEQ/L (136-145); TOTAL BILIRUBIN ADULT 0.9 MG/DL (0.2-1.0)
[2016-09-05] MEDS: AZITHROMYCIN 250 MG TAB PO SCH (12:37)
[2016-09-05 14:13] LABS: BLOOD GAS BASE EXCESS 2.2 mmol/L (-2-2); BLOOD GAS CARBOXYHEMOGLOBIN 1.8 % (0-4); BLOOD GAS HCO3 27 mmol/L (22-26); BLOOD GAS METHEMOGLOBIN 0.8 % (0-2); BLOOD GAS O2 HGB SATURATION 95 % (90-100); BLOOD GAS OXYGEN CONTENT 11.6 Vol % (12.0-20.0); BLOOD GAS PCO2 45 mmHg (38-42); BLOOD GAS PO2 104 mmHg (61-120); BLOOD GAS TOTAL HGB 8.6 G/DL (12.0-16.0); CRITICAL VALUE NO; DRAW SITE RT RADIAL; FIO2 45 %; NUMBER OF ARTERIAL PUNCTURES 1; OXYGEN DEVICE BIPAP; STAT NO; TEMP CORR TO 98.6; ULNAR PULSE Y; VENT SETTINGS 12IPAP/ 7EPAP
--- NOTE | 2016-09-05 14:38 | HHI.FPPN ---
Subjective Remarks Mr. Gudino says he is doing better and breathing much better. He was on BiPAP during morning rounds. Per reports from night nurse, he was found to be in a flutter with rapid ventricular rates and a Cardizem drip was started. Was on BiPAP for only 3 hours overnight because he did not tolerate it. He has been on BiPAP for 6 hours this morning. He produced 6.25 L of urine in the last 24 hours with decreased urine output today. He is currently on partial nonrebreather at 50%. He did not tolerate Ventimask with desaturation down to 85 %. (Eko,Rupali Stewart MD R1) Objective Vitals Vital Signs Date Time Temp Pulse Resp B/P Pulse Ox O2 Delivery O2 Flow Rate FiO2 09/05/16 14:15 99 Partial Non-Rebreather 09/05/16 14:00 73 09/05/16 13:00 97 45 09/05/16 12:00 95 Bi-Pap 50 09/05/16 12:00 75 09/05/16 12:00 98.2 75 22 118/53 95 09/05/16 10:00 89 09/05/16 10:00 22 09/05/16 09:00 80 09/05/16 08:55 95 50 09/05/16 08:00 94 Bi-Pap 09/05/16 08:00 123 09/05/16 08:00 98.4 123 20 102/65 94 09/05/16 06:00 124 09/05/16 04:30 96 50 09/05/16 04:00 97.8 79 20 101/54 96 09/05/16 04:00 79 09/05/16 04:00 96 Non-Rebreather 09/05/16 02:29 75 09/05/16 02:00 122 09/05/16 01:15 94 50 09/05/16 00:52 98 Bi-Pap 50 09/05/16 00:00 98.0 123 26 83/61 94 09/05/16 00:00 123 09/04/16 23:45 91 Bi-Pap 40 09/04/16 23:45 94 50 09/04/16 22:00 144 09/04/16 20:00 96 09/04/16 20:00 98.6 96 26 145/66 96 09/04/16 20:00 96 Non-Rebreather 09/04/16 19:39 96 Partial Rebreather 12.00 09/04/16 18:00 80 09/04/16 16:00 97.3 83 26 123/59 94 09/04/16 16:00 95 Bi-Pap 50 09/04/16 16:00 83 09/04/16 15:00 90 Bi-Pap 50 I/O 09/04/16 09/04/16 09/04/16 09/05/16 09/05/16 09/05/16 07:00 15:00 23:00 07:00 15:00 23:00 Intake Total 1706 ml 460 ml 1510 ml 792 ml Output Total 3600 ml 2300 ml 350 ml 500 ml Balance -1894 ml -1840 ml 1160 ml 292 ml Intake Oral 480 ml 240 ml 720 ml 480 ml IV Total 1226 ml 220 ml 790 ml 312 ml Output Urine Total 3600 ml 2300 ml 350 ml 500 ml # Bowel Movements 0 (Rupali Eddy MD R1) Result Diagram: 09/05/16 1058 09/05/16 1058 Objective Remarks Gen.: Lying in bed, BiPAP in place. Sleeping, but arousable, seemed more depressed Head: Normocephalic. Atraumatic. EENT: Pupils equal round and reactive to light. Nose without drainage. Airway intact. Cardiovascular: Regular rate and rhythm. Systolic murmur heard best in the aortic area Respiratory: Lungs clear to auscultation bilaterally I told Abdomen: Soft, nontender, nondistended. No peritoneal signs. Musculoskeletal: No gross deformities. No edema. Skin: No obvious rashes or erythema. Neuro: Sensory and motor grossly intact. Cranial nerves II through XII grossly intact. Psych: Smiles when awake, appropriately interacts with examiner (Rupali Eddy MD R1) A/P Assessment and Plan 71-year-old male who presented with a 5-day history of shortness of breath and nonproductive cough. ACS rule out positive for NSTEMI. Patient has a history of COPD and was admitted with sepsis with cardiology consultation for NSTEMI. Developed respiratory distress on 09/04. Had been on 100% oxygen by nonrebreather for greater than 24 hours with desaturations down to 70% when moved in bed or when mask is taken off. Transferred to the ICU for BiPAP with energy trader consultation. On 09/05, he developed atrial flutter with RVR, Cardizem drip was started. Discussed with Dr. Harris and Dr. Novak, PGY 2 Discharge Planning Pending clinical improvement (EkoRupali MD R1) Attending Attestation Patient seen and examined with the resident team. Case reviewed and discussed Agree with plan of care as discussed with me and documented in the resident note. (She Harris MD) Problem List: (1) Respiratory distress Status: Acute Plan: -On BiPAP in the ICU -Diuresed 6.25 L Lasix 40 mg IV twice a day -Chest x-ray on 09/05 not significantly changed from previous day (2) Severe sepsis Status: Resolved Plan: Septic on admission -WBC WNL at 9 -Continue Vancomycin 1250mg IV Q12h with pharmacy consult and Zosyn 3.375mg IV Q6h Continue azithromycin 500 mg PO Q24h started on 09/01 Repeat blood cultures negative 2 days (3) NSTEMI (non-ST elevated myocardial infarction) Status: Acute Plan: -Patient with elevated troponins to 1.[address] elevations in V1 V3. -Cardiology following -Left heart catheter when clinically able to perform procedure - most likely tomorrow 09/06 (4) Aortic stenosis Status: Acute Plan: -Cardiothoracic surgery consulted -Cardiology and cardiothoracic surgery to discuss plans going forward -Will need to optimize medical management for the infectious process prior to performing any procedures -Pulmonology consulted given high surgical risk- appreciate recommendations (5) Pneumonia Status: Acute Plan: See plan for severe sepsis above (6) CHF due to valvular disease Status: Acute Plan: Echo performed on 09/02 showed EF of 5055 percent. Aortic valve with moderate to severe stenosis. -Coreg 3.125 mg by mouth every 12 hours (7) Diabetes Status: Acute Plan: Patient's home regimen is NPH 25 units every morning and 50 units daily at bedtime -Continue Levemir 30 units in the a.m. and 25 units at night -SSI -Adjust insulin regimen as needed (8) COPD exacerbation Status: Acute Plan: Patient with known COPD and [id number] history of smoking Albuterol every 2 hours when necessary DuoNeb nebs every 4 hours scheduled Solu-Medrol 60 mg every 8 hours (9) Hyponatremia Status: Acute Plan: -Pseudohyponatremia vs SIADH vs some element of both -Sodium 129 today -Potassium within normal limits at 4.7 -Glucose was initially elevated at admission but has trended down with Levemir and SSI -Serum osmolality within normal limits at 283 -Random urine sodium within normal limits at 8 -Urine osmolality within normal limits at 530 -Patient received 1.4L of normal saline in the last 24 hours -The numbers above favor a diagnosis of pseudohyponatremia (10) Hypertension Status: Acute Plan: Continue Coreg and amlodipine. Hydralazine when necessary. Losartan held by cardiology secondary to hyperkalemia (11) Thrombocytopenia Status: Acute Plan: -Down to 105 from 174 on previous day Continue to monitor (12) Anxiety and depression Status: Acute Plan: -Continue home medications as follows: -Trazodone 100 mg by mouth daily -Sertraline 100 mg by mouth daily (13) BPH (benign prostatic hyperplasia) Status: Acute Plan: -History of BPH -Patient states history of using Flomax but not on current list of medications -Will consider starting Flomax if patient has symptoms (14) FEN/DVT PPX/GI PPX Status: Acute Plan: Fluids: Oral fluids only Electrolytes: Will monitor and replace as needed Nutrition: Heart healthy diet DVT Prophylaxis: Heparin 5000 units every 8 hours GI Prophylaxis: Protonix IV 40 mg daily (Rupali Eddy MD R1) Problem Qualifiers (1) Aortic stenosis: Qualified Code: I35.0 - Aortic valve stenosis, unspecified etiology (2) Pneumonia: Qualified Code: J18.9 - Pneumonia of both lungs due to infectious organism, unspecified part of lung (3) Diabetes: (4) Hypertension: Qualified Code: I10 - Essential hypertension Rupali Eddy MD R1 Sep 05, 2016 14:38 She Harris MD Sep 06, 2016 08:41
[2016-09-05] MEDS: MORPHINE SULFATE 4 MG/ML INJ IV PRN ×2 (15:21→20:51)
--- NOTE | 2016-09-05 15:58 | RADRPT ---
EXAM DATE/TIME: 09/05/2016 15:37 [facility] COMPARISON: CHEST SINGLE AP, September 05, 2016, 7:15. INDICATIONS : Follow up chest xray. Evaluate for infiltrate. RADIATION DOSE: 9.59 CTDIvol (mGy) MEDICAL HISTORY : Cardiovascular disease. Hypertension. Diabetes. SURGICAL HISTORY : None. ENCOUNTER: Initial ACUITY: 1 day PAIN SCALE: 0/10 LOCATION: chest TECHNIQUE: Volumetric scanning of the chest was performed. Using automated exposure control and adjustment of t he mA and/or kV according to patient size, radiation dose was kept as low as reasonably achievable to obtain optimal diagnostic quality images. FINDINGS: LUNGS: There is diffuse bilateral groundglass consolidation with interlobular septal thickening.. No concer siddharth pulmonary nodule is visualized. PLEURAE: There our small bilateral pleural effusions. MEDIASTINUM: The heart and great vessels demonstrate no acute abnormality. There is prominent precarinal lymph no de measuring 1.4 cm in short axis. Right paratracheal adenopathy measures 1.6 cm. Calcified right hil ar adenopathy. Cardiomegaly. Coronary artery calcifications. AXILLAE: Within normal limits. No lymphadenopathy. MUSCULOSKELETAL: Within normal limits for patient age. MISCELLANEOUS: The visualized upper abdominal organs demonstrate no acute abnormality. CONCLUSION: 1. Cardiomegaly with diffuse ground glass densities and consolidation likely pulmonary edema and/or p neumonia. 2. Small bilateral pleural effusions. 3. Prominent lymphadenopathy in the mediastinum. Cameron Archer MD on September 05, 2016 at 15:54 Board Certified Radiologist. This report was verified electronically.
[2016-09-05] MEDS: SODIUM CHLOR 0.9% 1000 ML INJ 1,000 ML IV SCH (17:00)
[2016-09-05] MEDS: traZODone HCL 100 MG TAB PO SCH (20:51)
[2016-09-06] VITALS (16 sets, daily range): BP systolic 94–148; BP diastolic 55–72; PULSE 66–81; RESP 14–23; TEMP 96.9–98.1; O2SAT 93–100
[2016-09-06] MEDS: PIPERACIL-TAZO 4.5 GM PREMIX 100 ML IV SCH ×2 (00:19→05:28)
[2016-09-06] MEDS: methylPREDNISolone SOD SUCC 40 MG/1 ML VIAL IV SCH ×3 (00:19→16:05)
[2016-09-06] MEDS: CHLORHEXIDINE GLUCONATE 2 % 1 PACK (2 CLOTHS)(taper/protocol) TOP SCH (00:20)
[2016-09-06] MEDS: MORPHINE SULFATE 4 MG/ML INJ IV PRN ×4 (03:43→16:06)
[2016-09-06] MEDS: RESP: ALBUTEROL 2.5 MG/IPRATROPIUM 0.5 MG NEB (SCH) NEB ×4 (04:01→21:20)
[2016-09-06] MEDS: LEVOTHYROXINE SODIUM 50 MCG TAB PO SCH (05:28)
[2016-09-06] MEDS: ALPRAZolam 0.5 MG TAB PO PRN ×2 (05:28→17:37)
[2016-09-06] MEDS: DILTIAZEM INJ 125 MG in SODIUM CHLORIDE 0.9% INJ 100 ML IV SCH (05:28)
[2016-09-06] MEDS: HEPARIN SODIUM - SQ 10,000 UNITS/ML VIAL SQ SCH ×3 (05:34→21:11)
--- NOTE | 2016-09-06 06:32 | RADRPT ---
EXAM DATE/TIME: 09/06/2016 04:13 [facility] COMPARISON: CHEST SINGLE AP, September 05, 2016, 7:15. INDICATIONS : Shortness of breath, possible pulmonary disease. MEDICAL HISTORY : Chronic obstructive pulmonary disease. SURGICAL HISTORY : Coronary artery stent. ENCOUNTER: Subsequent ACUITY: 1 week PAIN SCORE: 0/10 LOCATION: Bilateral chest FINDINGS: Bilateral airspace disease again noted similar to September 05. Cardiomegaly. Trace pleural fluid. No pneumothorax. CONCLUSION: 1. Bilateral airspace disease similar to September 05. Timbo Quarles MD on September 06, 2016 at 6:29 Board Certified Radiologist. This report was verified electronically.
[2016-09-06 06:37] LABS: ULNAR PULSE PRESENT
[2016-09-06 06:49] LABS: INTERNATIONAL NORMALIZED RATIO 1.2 RATIO; PROTHROMBIN TIME - PATIENT 13.4 SEC (9.8-11.6)
[2016-09-06 06:50] LABS: AUTOMATED NEUTROPHIL # 7.7 TH/MM3 (1.8-7.7); HEMATOCRIT 29.7 % (39.0-51.0); HEMO FLAGS DIFF FINAL; LYMPH % 5.6 % (9.0-44.0); LYMPHOCYTE # 0.5 TH/MM3 (1.0-4.8); MEAN CELL VOLUME 82.4 FL (80.0-100.0); MEAN CORPUSCULAR HEMOGLOBIN 27.2 PG (27.0-34.0); MEAN CORPUSCULAR HGB CONC 33.1 % (32.0-36.0); MONO % 6.3 % (0.0-8.0); NEUT % 88.1 % (16.0-70.0); PLATELET COUNT 107 TH/MM3 (150-450); RED BLOOD COUNT 3.61 MIL/MM3 (4.50-5.90); RED CELL DISTRIBUTION WIDTH 16.3 % (11.6-17.2); WHITE BLOOD COUNT 8.7 TH/MM3 (4.0-11.0)
[2016-09-06] MEDS: INSULIN ASPART SUPPLEMENTAL SCALE SQ SCH ×4 (07:00→21:11)
[2016-09-06] MEDS: INSULIN DETEMIR 100 UNITS/ML VIAL SQ SCH ×2 (07:00→21:06)
[2016-09-06 07:08] LABS: ALKALINE PHOSPHATASE 135 U/L (45-117); ALT (GPT) 107 U/L (12-78); ANION GAP 10 MEQ/L (5-15); AST (GOT) 128 U/L (15-37); BICARBONATE 28.2 MEQ/L (21.0-32.0); BLOOD UREA NITROGEN 62 MG/DL (7-18); CHLORIDE 90 MEQ/L (98-107); GLOMERULAR FILTRATION RATE 34 ML/MIN (>89); MAGNESIUM 2.6 MG/DL (1.5-2.5); POTASSIUM 4.8 MEQ/L (3.5-5.1); SODIUM (NA) 128 MEQ/L (136-145); TOTAL BILIRUBIN ADULT 0.8 MG/DL (0.2-1.0)
--- NOTE | 2016-09-06 07:40 | PD.CARD.PN ---
Subjective Subjective Remarks still short of breath (Bandar Yu) Objective Vital Signs / I&O Vital Signs Date Time Temp Pulse Resp B/P Pulse Ox O2 Delivery O2 Flow Rate FiO2 09/06/16 06:00 68 09/06/16 04:00 68 09/06/16 04:00 97.1 68 23 101/60 99 09/06/16 04:00 99 Partial Non-Rebreather 09/06/16 03:48 22 09/06/16 02:00 67 09/06/16 01:20 99 50 09/06/16 00:00 98 Bi-Pap 50 09/06/16 00:00 66 09/06/16 00:00 96.9 66 20 94/55 98 09/05/16 22:48 94 50 09/05/16 22:00 72 09/05/16 21:51 22 09/05/16 20:00 97.6 78 24 132/62 99 09/05/16 20:00 99 Partial Non-Rebreather 09/05/16 20:00 78 09/05/16 18:00 75 09/05/16 16:00 97.9 74 19 100/57 99 09/05/16 16:00 99 Partial Non-Rebreather 09/05/16 16:00 76 09/05/16 14:15 99 Partial Non-Rebreather 09/05/16 14:00 73 09/05/16 13:00 97 45 09/05/16 12:00 95 Bi-Pap 50 09/05/16 12:00 75 09/05/16 12:00 98.2 75 22 118/53 95 09/05/16 10:00 89 09/05/16 09:00 80 09/05/16 08:55 95 50 09/05/16 08:00 94 Bi-Pap 09/05/16 08:00 123 09/05/16 08:00 98.4 123 20 102/65 94 I/O 09/05/16 09/05/16 09/05/16 09/06/16 09/06/16 09/06/16 07:00 15:00 23:00 07:00 15:00 23:00 Intake Total 1510 ml 792 ml 899 ml 466 ml Output Total 350 ml 500 ml 400 ml 300 ml Balance 1160 ml 292 ml 499 ml 166 ml Intake Oral 720 ml 480 ml 480 ml IV Total 790 ml 312 ml 419 ml 466 ml Output Urine Total 350 ml 500 ml 400 ml 300 ml Physical Exam GENERAL: Well-nourished, well-developed patient in no apparent distress. NECK: No JVD. No carotid bruit. CARDIOVASCULAR: Regular rate and rhythm. S1/S2 no murmur, rub, or gallop. RESPIRATORY: No accessory muscle use. rales to auscultation. Breath sounds equal bilaterally. GASTROINTESTINAL: Abdomen soft, non-tender, nondistended. MUSCULOSKELETAL: Extremities without clubbing, cyanosis, or edema. Laboratory Laboratory Tests Test 09/05/16 09/06/16 09/06/16 10:58 05:38 05:50 White Blood Count 9.0 TH/MM3 8.7 TH/MM3 Red Blood Count 3.53 MIL/MM3 3.61 MIL/MM3 Hemoglobin 9.6 GM/DL 9.8 GM/DL Hematocrit 29.2 % 29.7 % Mean Corpuscular Volume 82.6 FL 82.4 FL Mean Corpuscular Hemoglobin 27.2 PG 27.2 PG Mean Corpuscular Hemoglobin 32.9 % 33.1 % Concent Red Cell Distribution Width 16.0 % 16.3 % Platelet Count 105 TH/MM3 107 TH/MM3 Mean Platelet Volume 8.8 FL 9.2 FL Neutrophils (%) (Auto) 89.2 % 88.1 % Lymphocytes (%) (Auto) 4.5 % 5.6 % Monocytes (%) (Auto) 6.1 % 6.3 % Eosinophils (%) (Auto) 0.1 % 0.0 % Basophils (%) (Auto) 0.1 % 0.0 % Neutrophils # (Auto) 8.0 TH/MM3 7.7 TH/MM3 Lymphocytes # (Auto) 0.4 TH/MM3 0.5 TH/MM3 Monocytes # (Auto) 0.6 TH/MM3 0.5 TH/MM3 Eosinophils # (Auto) 0.0 TH/MM3 0.0 TH/MM3 Basophils # (Auto) 0.0 TH/MM3 0.0 TH/MM3 CBC Comment DIFF FINAL DIFF FINAL Differential Comment Sodium Level 129 MEQ/L 128 MEQ/L Potassium Level 4.7 MEQ/L 4.8 MEQ/L Chloride Level 88 MEQ/L 90 MEQ/L Carbon Dioxide Level 29.5 MEQ/L 28.2 MEQ/L Anion Gap 12 MEQ/L 10 MEQ/L Blood Urea Nitrogen 42 MG/DL 62 MG/DL Creatinine 1.59 MG/DL 1.95 MG/DL Estimat Glomerular Filtration 43 ML/MIN 34 ML/MIN Rate Random Glucose 192 MG/DL 241 MG/DL Calcium Level 7.8 MG/DL 8.0 MG/DL Magnesium Level 2.4 MG/DL 2.6 MG/DL Total Bilirubin 0.9 MG/DL 0.8 MG/DL Aspartate Amino Transf 106 U/L 128 U/L (AST/SGOT) Alanine Aminotransferase 81 U/L 107 U/L (ALT/SGPT) Alkaline Phosphatase 158 U/L 135 U/L Total Protein 5.9 GM/DL 6.3 GM/DL Albumin 2.6 GM/DL 2.8 GM/DL Prothrombin Time 13.4 SEC Prothromb Time International 1.2 RATIO Ratio (Bandar Yu) Assessment and Plan Problem List: (1) NSTEMI (non-ST elevated myocardial infarction) (2) Aortic stenosis (3) Congestive heart failure (CHF) (4) Hypertension Assessment and Plan NSTEMI - no chest pain. LHC when breathing improves - moderate to severe mean gradient 20 mmHg and valve area 0.88 cm2 HTN - low, avoid CASEY-I due to hyperkalemia PNA - conitnue ABX and supplemental oxygen. On partial rebreather with spO2 100 % consider weaning oxygen (Bandar Yu) Assessment and Plan transferred to ICU over weekend due to respiratory distress. Discussed case with Dr. Marie. continue current treatment for pulmonary. ARF - monitor Cr. Lasix DC'd. no ACEi anemia - no obvious bleeding. add ferrous sulfate no LHC today until Cr, Hb, and respiratory condition more stable. [id number] hypotension - DC amlodipine. decrease BB. afib RVR - currently NSR. likely induced by increased adrenergic tone secondary to respiratory condition. DC cardizem gtt. (Minor,Troy Urbina MD) Problem Qualifiers (1) Aortic stenosis: Qualified Code: I35.0 - Aortic valve stenosis, unspecified etiology (2) Congestive heart failure (CHF): (3) Hypertension: Qualified Code: I10 - Essential hypertension Bandar Yu Sep 06, 2016 07:40 Troy Dudley MD Sep 06, 2016 08:22
[2016-09-06] MEDS: SODIUM CHLORIDE 0.9% FLUSH 5 ML FLUSH IVF PRN (07:45)
[2016-09-06] MEDS: PRIMIDONE 50 MG TAB PO SCH ×3 (07:46→18:00)
[2016-09-06] MEDS: PREGABALIN 75 MG CAP PO SCH ×2 (07:46→21:04)
[2016-09-06] MEDS: busPIRone HCL 10 MG TAB PO SCH ×2 (07:46→21:04)
[2016-09-06] MEDS: CARVEDILOL 6.25 MG TAB PO SCH ×4 (07:47→21:04)
[2016-09-06] MEDS: SERTRALINE HCL 100 MG TAB PO SCH (07:47)
[2016-09-06] MEDS: ALBUMIN HUMAN 25% 25 GM/100 ML BAGP IV SCH ×2 (07:48→21:04)
--- NOTE | 2016-09-06 08:55 | HHI.FPPN ---
Subjective Remarks Patient states he is doing "60% better" this morning. He is breathing better. He tolerated bipap better yesterday. Currently on NRB. Cardiology has evaluated and recommends LHC when breathing improves. No fever, chills, n/v/d. No chest pain. Objective Vitals Vital Signs Date Time Temp Pulse Resp B/P Pulse Ox O2 Delivery O2 Flow Rate FiO2 09/06/16 06:00 68 09/06/16 04:00 68 09/06/16 04:00 97.1 68 23 101/60 99 09/06/16 04:00 99 Partial Non-Rebreather 09/06/16 03:48 22 09/06/16 02:00 67 09/06/16 01:20 99 50 09/06/16 00:00 98 Bi-Pap 50 09/06/16 00:00 66 09/06/16 00:00 96.9 66 20 94/55 98 09/05/16 22:48 94 50 09/05/16 22:00 72 09/05/16 21:51 22 09/05/16 20:00 97.6 78 24 132/62 99 09/05/16 20:00 99 Partial Non-Rebreather 09/05/16 20:00 78 09/05/16 18:00 75 09/05/16 16:00 97.9 74 19 100/57 99 09/05/16 16:00 99 Partial Non-Rebreather 09/05/16 16:00 76 09/05/16 14:15 99 Partial Non-Rebreather 09/05/16 14:00 73 09/05/16 13:00 97 45 09/05/16 12:00 95 Bi-Pap 50 09/05/16 12:00 75 09/05/16 12:00 98.2 75 22 118/53 95 09/05/16 10:00 89 09/05/16 09:00 80 09/05/16 08:55 95 50 I/O 09/05/16 09/05/16 09/05/16 09/06/16 09/06/16 09/06/16 07:00 15:00 23:00 07:00 15:00 23:00 Intake Total 1510 ml 792 ml 899 ml 466 ml Output Total 350 ml 500 ml 400 ml 300 ml Balance 1160 ml 292 ml 499 ml 166 ml Intake Oral 720 ml 480 ml 480 ml IV Total 790 ml 312 ml 419 ml 466 ml Output Urine Total 350 ml 500 ml 400 ml 300 ml Result Diagram: 09/06/16 0550 09/06/16 0538 Imaging Last Impressions Chest X-Ray 09/06/16 0600 Signed Impressions: Service Date/Time: Tuesday, September 06, 2016 04:13 - CONCLUSION: 1. Bilateral airspace disease similar to September 05. Timbo Quarles MD Chest CT 09/05/16 0000 Signed Impressions: Service Date/Time: Monday, September 05, 2016 15:37 - CONCLUSION: 1. Cardiomegaly with diffuse ground glass densities and consolidation likely pulmonary edema and/or pneumonia. 2. Small bilateral pleural effusions. 3. Prominent lymphadenopathy in the mediastinum. Cameron Archer MD Objective Remarks Gen.: Lying in bed, non rebreather sating 99%. Head: Normocephalic. Atraumatic. EENT: Pupils equal round and reactive to light. Nose without drainage. Airway intact. Cardiovascular: Regular rate and rhythm. Systolic murmur heard best in the aortic area Respiratory: Improved aeration in lungs bilaterally Abdomen: Soft, nontender, nondistended. No peritoneal signs. Musculoskeletal: No gross deformities. No edema. Skin: No obvious rashes or erythema. Neuro: Sensory and motor grossly intact. Cranial nerves II through XII grossly intact. Psych: Smiles when awake, appropriately interacts with examiner A/P Assessment and Plan 71-year-old male who presented with a 5-day history of shortness of breath and nonproductive cough. ACS rule out positive for NSTEMI. Patient has a history of COPD and was admitted with sepsis with cardiology consultation for NSTEMI. Developed respiratory distress on 09/04. Transferred to the ICU for BiPAP with management intern consultation. On 09/05, he developed atrial flutter with RVR, Cardizem drip was started. Discussed with Dr. Harris and Dr. Novak, PGY 2 Discharge Planning Pending clinical improvement Problem List: (1) Respiratory distress Status: Acute Plan: -On BiPAP or NRB in the ICU -Lasix drip for diuresis -CC managing (2) NSTEMI (non-ST elevated myocardial infarction) Status: Acute Plan: -Patient with elevated troponins to 1.[address] elevations in V1 V3. -Cardiology following -Left heart catheter when clinically able to perform procedure - most likely tomorrow 09/06 (3) Aortic stenosis Status: Acute Plan: -Cardiothoracic surgery consulted -Cardiology and cardiothoracic surgery to discuss plans going forward -Will need to optimize medical management for the infectious process prior to performing any procedures -Pulmonology consulted given high surgical risk- appreciate recommendations (4) Pneumonia Status: Acute Plan: Continue Azithromycin Zosyn stopped 09/06 (5) CHF due to valvular disease Status: Acute Plan: Echo performed on 09/02 showed EF of 5055 percent. Aortic valve with moderate to severe stenosis. -Coreg 3.125 mg by mouth every 12 hours (6) Diabetes Status: Acute Plan: Patient's home regimen is NPH 25 units every morning and 50 units daily at bedtime -Continue Levemir 30 units in the a.m. and 25 units at night -SSI -Adjust insulin regimen as needed (7) COPD exacerbation Status: Acute Plan: Patient with known COPD and [id number] history of smoking Albuterol every 2 hours when necessary DuoNeb nebs every 4 hours scheduled Solu-Medrol 60 mg every 8 hours (8) Hyponatremia Status: Acute Plan: -Pseudohyponatremia vs SIADH vs some element of both -Sodium 129 today -Potassium within normal limits at 4.7 -Glucose was initially elevated at admission but has trended down with Levemir and SSI -Serum osmolality within normal limits at 283 -Random urine sodium within normal limits at 8 -Urine osmolality within normal limits at 530 -Patient received 1.4L of normal saline in the last 24 hours -The numbers above favor a diagnosis of pseudohyponatremia (9) Hypertension Status: Acute Plan: Continue Coreg and amlodipine. Hydralazine when necessary. Losartan held by cardiology secondary to hyperkalemia (10) Thrombocytopenia Status: Acute Plan: -Down to 105 from 174 on previous day Continue to monitor (11) Anxiety and depression Status: Acute Plan: -Continue home medications as follows: -Trazodone 100 mg by mouth daily -Sertraline 100 mg by mouth daily (12) BPH (benign prostatic hyperplasia) Status: Acute Plan: -History of BPH -Patient states history of using Flomax but not on current list of medications -Will consider starting Flomax if patient has symptoms (13) FEN/DVT PPX/GI PPX Status: Acute Plan: Fluids: Oral fluids only Electrolytes: Will monitor and replace as needed Nutrition: Heart healthy diet DVT Prophylaxis: Heparin 5000 units every 8 hours GI Prophylaxis: Protonix IV 40 mg daily (14) Severe sepsis Status: Resolved Plan: Septic on admission Continue azithromycin 500 mg PO Q24h started on 09/01 Repeat blood cultures negative 2 days Abx History: -Vancomycin 1250mg IV Q12h with pharmacy consult and Zosyn 3.375mg IV Q6h (dc ) Problem Qualifiers (1) Aortic stenosis: Qualified Code: I35.0 - Aortic valve stenosis, unspecified etiology (2) Pneumonia: Qualified Code: J18.9 - Pneumonia of both lungs due to infectious organism, unspecified part of lung (3) Diabetes: (4) Hypertension: Qualified Code: I10 - Essential hypertension Sae Perry MD R2 Sep 06, 2016 08:55
[2016-09-06] MEDS: FERROUS SULFATE 325 MG (65 MG ELEMENTAL IRON) TAB PO SCH ×2 (09:18→21:04)
[2016-09-06] MEDS: ASPIRIN 325 MG TAB PO SCH (09:19)
[2016-09-06] MEDS: PRAVASTATIN SOD 40 MG TAB PO SCH (09:19)
--- NOTE | 2016-09-06 09:19 | HHI.FPPN ---
Subjective Remarks Patient states he is tolerating BiPAP better. Currently he is on nonrebreather and satting 99%. He feels 60% better this morning. He slept well last night. No chest pain, nausea, vomiting, fever. Cardiology has seen the patient this morning and state not appropriate for catheterization at this time. He may go for catheterization later in the week as his clinical condition improves. ( Sae Perry MD R2) Objective Vitals Vital Signs Date Time Temp Pulse Resp B/P Pulse Ox O2 Delivery O2 Flow Rate FiO2 09/06/16 09:07 100 Non-Rebreather 100 09/06/16 06:00 68 09/06/16 04:00 68 09/06/16 04:00 97.1 68 23 101/60 99 09/06/16 04:00 99 Partial Non-Rebreather 09/06/16 03:48 22 09/06/16 02:00 67 09/06/16 01:20 99 50 09/06/16 00:00 98 Bi-Pap 50 09/06/16 00:00 66 09/06/16 00:00 96.9 66 20 94/55 98 09/05/16 22:48 94 50 09/05/16 22:00 72 09/05/16 21:51 22 09/05/16 20:00 97.6 78 24 132/62 99 09/05/16 20:00 99 Partial Non-Rebreather 09/05/16 20:00 78 09/05/16 18:00 75 09/05/16 16:00 97.9 74 19 100/57 99 09/05/16 16:00 99 Partial Non-Rebreather 09/05/16 16:00 76 09/05/16 14:15 99 Partial Non-Rebreather 09/05/16 14:00 73 09/05/16 13:00 97 45 09/05/16 12:00 95 Bi-Pap 50 09/05/16 12:00 75 09/05/16 12:00 98.2 75 22 118/53 95 09/05/16 10:00 89 I/O 09/05/16 09/05/16 09/05/16 09/06/16 09/06/16 09/06/16 07:00 15:00 23:00 07:00 15:00 23:00 Intake Total 1510 ml 792 ml 899 ml 466 ml Output Total 350 ml 500 ml 400 ml 300 ml Balance 1160 ml 292 ml 499 ml 166 ml Intake Oral 720 ml 480 ml 480 ml IV Total 790 ml 312 ml 419 ml 466 ml Output Urine Total 350 ml 500 ml 400 ml 300 ml (Sae Perry MD R2) Result Diagram: 09/06/16 0550 09/06/16 0538 Imaging Last Impressions Chest X-Ray 09/06/16 0600 Signed Impressions: Service Date/Time: Tuesday, September 06, 2016 04:13 - CONCLUSION: 1. Bilateral airspace disease similar to September 05. Timbo Quarles MD Chest CT 09/05/16 0000 Signed Impressions: Service Date/Time: Monday, September 05, 2016 15:37 - CONCLUSION: 1. Cardiomegaly with diffuse ground glass densities and consolidation likely pulmonary edema and/or pneumonia. 2. Small bilateral pleural effusions. 3. Prominent lymphadenopathy in the mediastinum. Cameron Archer MD Objective Remarks Gen.: Lying in bed, non rebreather sating 99%. Head: Normocephalic. Atraumatic. EENT: Pupils equal round and reactive to light. Nose without drainage. Airway intact. Cardiovascular: Regular rate and rhythm. Systolic murmur heard best in the aortic area Respiratory: Improved aeration in lungs bilaterally Abdomen: Soft, nontender, nondistended. No peritoneal signs. Musculoskeletal: No gross deformities. No edema. Skin: No obvious rashes or erythema. Neuro: Sensory and motor grossly intact. Cranial nerves II through XII grossly intact. Psych: Smiles when awake, appropriately interacts with examiner (Sae Perry MD R2) A/P Assessment and Plan 71-year-old male who presented with a 5-day history of shortness of breath and nonproductive cough. ACS rule out positive for NSTEMI. Patient has a history of COPD and was admitted with sepsis with cardiology consultation for NSTEMI. Developed respiratory distress on 09/04 and was transferred to the ICU with critical care consult. Currently tolerating BiPAP and nonrebreather. Cardiology to perform left heart catheter when clinically better. Discharge Planning Pending clinical improvement (Sae Perry MD R2) Attending Attestation Patient seen and examined. Case reviewed and discussed Agree with plan of care as discussed with me and documented in the resident note dw RN and at the bedside (She Harris MD) Problem List: (1) Respiratory distress Status: Acute Plan: Improving. On BiPAP or NRB in the ICU -Lasix drip for diuresis -CC managing Solu-Medrol 60 mg IV every 8 hours. DuoNeb's every 6 hours (2) NSTEMI (non-ST elevated myocardial infarction) Status: Acute Plan: -Patient with elevated troponins to 1.[address] elevations in V1 V3. -Cardiology following -Left heart catheter when clinically able to perform procedure (3) Aortic stenosis Status: Acute Plan: -Cardiothoracic surgery consulted -Cardiology and cardiothoracic surgery to discuss plans going forward -Will need to optimize medical management for the infectious process prior to performing any procedures -Pulmonology consulted given high surgical risk- appreciate recommendations (4) Pneumonia Status: Acute Plan: Continue Azithromycin and Zosyn Sputum culture shows mixed orly (5) CHF due to valvular disease Status: Acute Plan: Echo performed on 09/02 showed EF of 5055 percent. Aortic valve with moderate to severe stenosis. -Coreg 3.125 mg by mouth every 12 hours Lasix drip per critical care BiPAP or nonrebreather per critical care Albumin 25 g every 12 hours IV prior to Lasix (6) Diabetes Status: Acute Plan: Patient's home regimen is NPH 25 units every morning and 50 units daily at bedtime -Continue Levemir 30 units in the a.m. and 25 units at night -SSI -Adjust insulin regimen as needed (7) COPD exacerbation Status: Acute Plan: Patient with known COPD and [id number] history of smoking Albuterol every 2 hours when necessary DuoNeb nebs every 4 hours scheduled Solu-Medrol 60 mg every 8 hours (8) Hyponatremia Status: Acute Plan: -Pseudohyponatremia vs SIADH vs some element of both We'll follow with BMPs. -Serum osmolality within normal limits at 283 -Random urine sodium within normal limits at 8 -Urine osmolality within normal limits at 530 -The numbers above favor a diagnosis of pseudohyponatremia (9) Hypertension Status: Acute Plan: Continue Coreg. Hydralazine when necessary. Losartan held by cardiology secondary to hyperkalemia Amlodipine discontinued currently (10) Thrombocytopenia Status: Acute Plan: Continue to monitor (11) Anxiety and depression Status: Acute Plan: -Continue home medications as follows: -Trazodone 100 mg by mouth daily -Sertraline 100 mg by mouth daily (12) BPH (benign prostatic hyperplasia) Status: Acute Plan: -History of BPH -Patient states history of using Flomax but not on current list of medications -Will consider starting Flomax if patient has symptoms (13) FEN/DVT PPX/GI PPX Status: Acute Plan: Fluids: Currently on IV fluids per critical care Electrolytes: Will monitor and replace as needed Nutrition: Heart healthy diet DVT Prophylaxis: Heparin 5000 units every 8 hours GI Prophylaxis: Protonix IV 40 mg daily (14) Severe sepsis Status: Resolved Plan: Septic on admission Continue azithromycin 500 mg PO Q24h started on 09/01 Repeat blood cultures negative 2 days Abx History: -Vancomycin 1250mg IV Q12h with pharmacy consult and Zosyn 3.375mg IV Q6h (dc ) (Sae Perry MD R2) Problem Qualifiers (1) Aortic stenosis: Qualified Code: I35.0 - Aortic valve stenosis, unspecified etiology (2) Pneumonia: Qualified Code: J18.9 - Pneumonia of both lungs due to infectious organism, unspecified part of lung (3) Diabetes: (4) Hypertension: Qualified Code: I10 - Essential hypertension Sae Perry MD R2 Sep 06, 2016 09:19 She Harris MD Sep 07, 2016 14:51
[2016-09-06] MEDS: AZITHROMYCIN 250 MG TAB PO SCH (11:36)
[2016-09-06] MEDS ORDERED: PIPERACIL-TAZO 3.375 GM PREMIX 50 ML IV SCH (12:00)
[2016-09-06] MEDS ORDERED: SODIUM CHLORID 0.9% 500 ML INJ 500 ML IV ONE ×2 (13:00→13:15)
[2016-09-06] MEDS: SODIUM CHLOR 0.9% 1000 ML INJ 1,000 ML IV SCH ×2 (13:26→13:27)
--- NOTE | 2016-09-06 15:44 | HHI.CCPN ---
Subjective Remarks/Hospital Course The patient is a 71-year-old male with past medical history significant for COPD, aortic stenosis, hypertension and diabetes who presented to the emergency department with progressive shortness of breath and nonproductive cough for last 5 days. He was diagnosed and admitted to service on with [id number] MN, COPD exacerbation and probable pneumonia. He had a previous heart catheterization in 2014, was told at that time he needed to have aortic valve replacement. He was started on IV antibiotics with Rocephin and azithromycin and also was placed on IV steroids and DuoNeb breathing treatment for probable COPD exacerbation. All the cultures so far negative, also negative for influenza A and B, negative for Streptococcus and Legionella antigen. Cardiology was consulted, and echo showed moderate to severe aortic stenosis. Cardiothoracic surgery was also consulted and is following, plan for cardiac catheterization this Tuesday. A Halicat was called today as the patient was increasingly lethargic with increased dyspnea and hypoxia. He desaturated to the 70% when RN attempted to move him. Chest x-ray showed bilateral pulmonary edema worsening compared to admission. He was moved to the ICU and critical care medicine was consulted. I evaluated the patient in ICU. He is tachypneic on 100% nonrebreather. Examination revealed bilateral crackles. 60 mg of IV Lasix stat given and patient was ordered to be placed on BiPAP at 06/16. BNP was 658 SUBJECT 09/05/16: Patient did not tolerate BiPAP overnight. Currently remains on partial nonrebreather. Urine output more than 6 L in 24 hours. He developed atrial flutter with RVR, was placed on esmolol which I have changed to Cardizem. Chest x-ray shows interval improvement in my review 09/06/16: Remains on pNRB. sputum cx with strep pneumo. Urine out put diminishing. 1L bolus given with adequate response. Bilateral lung infiltrate. Discussed with Dr. Dudley. Will hold off cath until Reps failure/ALI improves and renal failure improves Objective Vital Signs Date Time Temp Pulse Resp B/P Pulse Ox O2 Delivery O2 Flow Rate FiO2 09/06/16 09:07 100 Non-Rebreather 100 09/06/16 06:00 68 09/06/16 04:00 97.1 23 101/60 09/04/16 19:39 12.00 Intake and Output 09/05/16 09/05/16 09/06/16 08:00 16:00 00:00 Intake Total 1510 ml 792 ml 899 ml Output Total 350 ml 500 ml 400 ml Balance 1160 ml 292 ml 499 ml Result Diagram: 09/06/16 0550 09/06/16 0538 Imaging Chest x-ray shows bilateral pulmonary edema Objective Remarks Gen: 71-year-old male lying in ICU bed, partial nonrebreather mask in place. Appears ill tachypneic Head: Normocephalic. Atraumatic. EENT: Pupils equal round and reactive to light. Cardiovascular: S1-S2 normal. Systolic murmur heard in the aortic area Respiratory: Bilateral rhonchi and bibasilar crackles Abdomen: Soft, nontender, nondistended. No peritoneal signs. Musculoskeletal: No gross deformities. No edema. Skin: No obvious rashes or erythema. Neuro: Alert awake oriented 3. No focal deficits A/P Assessment and Plan NEURO: -Minimize sedation, as needed morphine for pain anxiety and heart failure RESP: Acute hypoxemic respiratory failure requiring BiPAP ARDS Pneumococcal pneumonia COPD exacerbation -BiPAP 06/16 PRN, patient did not tolerate overnight -Continue IV Solu-Medrol and DuoNeb breathing treatments -See ID section for ABX -EzPAP, Acapella every 6 hours CV: Severe aortic stenosis CHF NSTEMI -IV Lasix discontinued due to acute renal failure. It appears like pulmonary edema is noncardiogenic secondary to pneumococcal pneumonia/ARDS -Continue aspirin, Coreg, and pravastatin. Norvasc discontinued -Cardizem infusion discontinued -Cardiac catheterization will be postponed until respiratory status and renal failure improves-discussed with Dr. Dudley -Cardiothoracic surgery and cardiology Dr. Dudley is following GI: -Advance diet to cardiac, 1800 ADA -Protonix for GI prophylaxis : Acute kidney injury -Monitor renal function closely. [place] catheter. -Lasix discontinued. Continue gentle IV hydration with normal saline 50 ML per hour for 48 hours total -1 L normal saline bolus given ID: Sepsis Pneumococcal pneumonia -Continue azithromycin. DC Zosyn and start Rocephin 2 g IV every 24 hours. Single dose of vancomycin for possible insulin resistance -Consult infectious diseases. D/W Dr. Henderson -Sputum culture positive for strep pneumo. Influenza negative HEME: -Monitor CBC, CMP, coags ENDO: Type 2 diabetes Hypothyroidism -Sliding-scale insulin. Continue Levemir -Electrolyte replacement per protocol PROPH: -Bilateral lower extremity SCDs. Heparin 5000 units subcutaneous every 8 hours. Protonix for GI prophylaxis LINES: -Utilize peripheral IVs, central line if needed Level 2 Minnie Marie MD Sep 06, 2016 15:44
[2016-09-06] MEDS ORDERED: VANCOMYCIN INJ 1,500 MG in SODIUM CHLORID 0.9% 500 ML INJ 500 ML IV ONE (16:00)
[2016-09-06] MEDS ORDERED: fentaNYL DRIP 250 ML IV SCH (16:30)
[2016-09-06] MEDS ORDERED: PROPOFOL 1000 MG/100 ML INJ 100 ML IV SCH (16:30)
[2016-09-06] MEDS ORDERED: LORazepam 2 MG/ML VIAL IM PRN (17:45)
[2016-09-06] MEDS: DOCUSATE SODIUM 50 MG/SENNA 8.6 MG TAB PO SCH ×2 (17:45→18:53)
--- NOTE | 2016-09-06 17:47 | HHI.PR ---
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 Objective Vital Signs Vital Signs Date Time Temp Pulse Resp B/P Pulse Ox O2 Delivery O2 Flow Rate FiO2 09/06/16 09:07 100 Non-Rebreather 100 09/06/16 06:00 68 09/06/16 04:00 68 09/06/16 04:00 97.1 68 23 101/60 99 09/06/16 04:00 99 Partial Non-Rebreather 09/06/16 03:48 22 09/06/16 02:00 67 09/06/16 01:20 99 50 09/06/16 00:00 98 Bi-Pap 50 09/06/16 00:00 66 09/06/16 00:00 96.9 66 20 94/55 98 09/05/16 22:48 94 50 09/05/16 22:00 72 09/05/16 21:51 22 09/05/16 20:00 97.6 78 24 132/62 99 09/05/16 20:00 99 Partial Non-Rebreather 09/05/16 20:00 78 09/05/16 18:00 75 I/O 09/05/16 09/05/16 09/05/16 09/06/16 09/06/16 09/06/16 07:00 15:00 23:00 07:00 15:00 23:00 Intake Total 1510 ml 792 ml 899 ml 466 ml Output Total 350 ml 500 ml 400 ml 300 ml Balance 1160 ml 292 ml 499 ml 166 ml Intake Oral 720 ml 480 ml 480 ml IV Total 790 ml 312 ml 419 ml 466 ml Output Urine Total 350 ml 500 ml 400 ml 300 ml Result Diagram: 09/06/16 0550 09/06/16 0538 Objective Remarks GENERAL: Obese WM, mild sob SKIN: Warm and dry. HEAD: Normocephalic. EYES: No scleral icterus. No injection or drainage. NECK: Supple, trachea midline. No JVD or lymphadenopathy. CARDIOVASCULAR: Regular rate and rhythm without murmurs, gallops, or rubs. RESPIRATORY: Breath sounds equal bilaterally. No accessory muscle use. GASTROINTESTINAL: Abdomen soft, non-tender, nondistended. MUSCULOSKELETAL: No cyanosis, or edema. BACK: Nontender without obvious deformity. No CVA tenderness. A/P Assessment and Plan Resp insuff COPD Lung infilt DM Ch. Pain PLAN: Cont Abx IV Solumedrol Supplement 02 with PRB and wean 02 Aerosol nebs Monitor BS DW pt and Kai Escobedo MD Sep 06, 2016 17:47
[2016-09-06] MEDS ORDERED: cefTRIAXone INJ 2,000 MG in SODIUM CHLORIDE 0.9% INJ 100 ML IV SCH (18:00)
[2016-09-06] MEDS: metroNIDAZOLE 500 MG INJ 100 ML IV SCH (18:52)
[2016-09-06] MEDS: CHLORHEXIDINE 0.12% (ORAL KIT) 15 ML CUP MT SCH (20:00)
[2016-09-06] MEDS: traZODone HCL 100 MG TAB PO SCH (21:04)
--- NOTE | 2016-09-06 22:10 | RADRPT ---
EXAM DATE/TIME: 09/06/2016 20:43 [facility] COMPARISON: No previous studies available for comparison. INDICATIONS : left arm swelling. MEDICAL HISTORY : Thyroid disease. Hypertension. COPD. Dyspnea. Arthritis. Gastroesophageal reflux. Cardiac disorders. SURGICAL HISTORY : Bilateral knee replacement. ENCOUNTER: Initial ACUITY: 1 day PAIN SCORE: 0/10 LOCATION: Left arm FINDINGS: There is spontaneous flow documented in the brachial, basilic, cephalic, axillary, and subclavian vei ns. The vessels are compressible and augmentation response is documented. No filling defects are se en. The flow is phasic with respiration. Direction of flow in the jugular vein is caudal. CONCLUSION: No evidence of DVT. Isidro Oliver MD on September 06, 2016 at 22:08 Board Certified Radiologist. This report was verified electronically.
[2016-09-07] VITALS (16 sets, daily range): BP systolic 117–161; BP diastolic 56–106; PULSE 66–83; RESP 10–17; TEMP 97.1–98; O2SAT 92–100
[2016-09-07] MEDS: methylPREDNISolone SOD SUCC 40 MG/1 ML VIAL IV SCH ×3 (01:31→17:39)
[2016-09-07] MEDS: metroNIDAZOLE 500 MG INJ 100 ML IV SCH ×2 (01:31→09:18)
[2016-09-07] MEDS: SODIUM CHLOR 0.9% 1000 ML INJ 1,000 ML IV SCH (01:32)
[2016-09-07] MEDS: CHLORHEXIDINE GLUCONATE 2 % 1 PACK (2 CLOTHS)(taper/protocol) TOP SCH (04:00)
[2016-09-07] MEDS: RESP: ALBUTEROL 2.5 MG/IPRATROPIUM 0.5 MG NEB (SCH) NEB ×4 (04:26→20:22)
[2016-09-07] MEDS: HEPARIN SODIUM - SQ 10,000 UNITS/ML VIAL SQ SCH ×2 (06:00→12:47)
[2016-09-07 06:13] LABS: AUTOMATED NEUTROPHIL # 5.9 TH/MM3 (1.8-7.7); EOSINOPHIL % 0.1 % (0.0-4.0); LYMPH % 8.8 % (9.0-44.0); LYMPHOCYTE # 0.6 TH/MM3 (1.0-4.8); MEAN CELL VOLUME 82.4 FL (80.0-100.0); MEAN CORPUSCULAR HEMOGLOBIN 27.2 PG (27.0-34.0); NEUT % 81.1 % (16.0-70.0); PLATELET COUNT 83 TH/MM3 (150-450); WHITE BLOOD COUNT 7.3 TH/MM3 (4.0-11.0)
[2016-09-07 06:32] LABS: HEMO FLAGS AUTO DIFF
[2016-09-07] MEDS: INSULIN DETEMIR 100 UNITS/ML VIAL SQ SCH ×2 (06:34→21:00)
[2016-09-07] MEDS: INSULIN ASPART SUPPLEMENTAL SCALE SQ SCH ×3 (06:34→17:59)
[2016-09-07] MEDS: LEVOTHYROXINE SODIUM 50 MCG TAB PO SCH (06:35)
[2016-09-07 06:41] LABS: ALKALINE PHOSPHATASE 115 U/L (45-117); ALT (GPT) 106 U/L (12-78); ANION GAP 10 MEQ/L (5-15); AST (GOT) 95 U/L (15-37); BICARBONATE 27.7 MEQ/L (21.0-32.0); BLOOD UREA NITROGEN 72 MG/DL (7-18); CHLORIDE 90 MEQ/L (98-107); GLOMERULAR FILTRATION RATE 32 ML/MIN (>89); MAGNESIUM 2.9 MG/DL (1.5-2.5); POTASSIUM 4.5 MEQ/L (3.5-5.1); SODIUM (NA) 128 MEQ/L (136-145); TOTAL BILIRUBIN ADULT 0.7 MG/DL (0.2-1.0)
--- NOTE | 2016-09-07 06:53 | RADRPT ---
EXAM DATE/TIME: 09/07/2016 05:14 [facility] COMPARISON: No previous studies available for comparison. INDICATIONS : Respiratory disease. MEDICAL HISTORY : Chronic obstructive pulmonary disease. Hypertension. SURGICAL HISTORY : None. ENCOUNTER: Subsequent ACUITY: 1 week PAIN SCORE: Non-responsive. LOCATION: Bilateral chest FINDINGS: A single view of the chest demonstrates diffuse bilateral airspace disease stable to slightly increas ed from September 06. Small effusions. Heart size enlarged. CONCLUSION: 1. Stable to slight worsening of bilateral airspace disease over the last day. Timbo Quarles MD on September 07, 2016 at 6:50 Board Certified Radiologist. This report was verified electronically.
[2016-09-07 07:30] LABS: KERATOCYTES OCC (NORMAL); PLATELET ESTIMATE SMEAR LOW (NORMAL); PLATELET MORPHOLOGY NORMAL (NORMAL); SCAN/DIFF AUTO DIFF CONFIRMED
--- NOTE | 2016-09-07 07:49 | PD.CARD.PN ---
Subjective Subjective Remarks sleeping and on BiPAP Objective Vital Signs / I&O Vital Signs Date Time Temp Pulse Resp B/P Pulse Ox O2 Delivery O2 Flow Rate FiO2 09/07/16 06:00 66 09/07/16 04:26 96 65 09/07/16 04:00 98 Partial Non-Rebreather 09/07/16 04:00 67 09/07/16 04:00 98.0 67 10 117/56 98 09/07/16 02:00 74 09/07/16 00:00 97.6 77 11 133/64 96 09/07/16 00:00 77 09/07/16 00:00 96 Partial Non-Rebreather 09/06/16 23:20 93 65 09/06/16 22:04 20 09/06/16 22:00 81 09/06/16 21:20 99 Partial Rebreather 15.00 09/06/16 20:00 98.1 79 16 145/72 98 09/06/16 20:00 79 09/06/16 20:00 96 Partial Non-Rebreather 09/06/16 18:00 76 09/06/16 16:00 97.6 78 18 140/69 96 09/06/16 16:00 96 Partial Non-Rebreather 09/06/16 16:00 78 09/06/16 14:00 74 09/06/16 14:00 99 Partial Non-Rebreather 09/06/16 12:00 97.1 70 14 135/66 100 09/06/16 12:00 70 09/06/16 10:00 72 09/06/16 09:07 100 Non-Rebreather 100 09/06/16 08:00 97.5 70 19 148/65 99 09/06/16 08:00 99 Partial Non-Rebreather 09/06/16 08:00 70 I/O 09/06/16 09/06/16 09/06/16 09/07/16 09/07/16 09/07/16 07:00 15:00 23:00 07:00 15:00 23:00 Intake Total 466 ml 2266 ml 601 ml 273 ml Output Total 300 ml 450 ml 400 ml 300 ml Balance 166 ml 1816 ml 201 ml -27 ml Intake Oral 800 ml 0 ml 0 ml IV Total 466 ml 1466 ml 601 ml 273 ml Output Urine Total 300 ml 450 ml 400 ml 300 ml # Bowel Movements 0 0 0 Physical Exam GENERAL: Well-nourished, well-developed patient in no apparent distress. NECK: No JVD. No carotid bruit. CARDIOVASCULAR: Regular rate and rhythm. S1/S2 no murmur, rub, or gallop. RESPIRATORY: No accessory muscle use. rales to auscultation. Breath sounds equal bilaterally. GASTROINTESTINAL: Abdomen soft, non-tender, nondistended. MUSCULOSKELETAL: Extremities without clubbing, cyanosis, or edema. Laboratory Laboratory Tests Test 09/07/16 04:25 White Blood Count 7.3 TH/MM3 Red Blood Count 3.40 MIL/MM3 Hemoglobin 9.3 GM/DL Hematocrit 28.0 % Mean Corpuscular Volume 82.4 FL Mean Corpuscular Hemoglobin 27.2 PG Mean Corpuscular Hemoglobin 33.0 % Concent Red Cell Distribution Width 16.0 % Platelet Count 83 TH/MM3 Mean Platelet Volume 8.6 FL Neutrophils (%) (Auto) 81.1 % Lymphocytes (%) (Auto) 8.8 % Monocytes (%) (Auto) 10.0 % Eosinophils (%) (Auto) 0.1 % Basophils (%) (Auto) 0.0 % Neutrophils # (Auto) 5.9 TH/MM3 Lymphocytes # (Auto) 0.6 TH/MM3 Monocytes # (Auto) 0.7 TH/MM3 Eosinophils # (Auto) 0.0 TH/MM3 Basophils # (Auto) 0.0 TH/MM3 CBC Comment AUTO DIFF Differential Comment AUTO DIFF CONFIRMED Platelet Estimate LOW Platelet Morphology Comment NORMAL Keratocytes OCC Sodium Level 128 MEQ/L Potassium Level 4.5 MEQ/L Chloride Level 90 MEQ/L Carbon Dioxide Level 27.7 MEQ/L Anion Gap 10 MEQ/L Blood Urea Nitrogen 72 MG/DL Creatinine 2.07 MG/DL Estimat Glomerular Filtration 32 ML/MIN Rate Random Glucose 201 MG/DL Calcium Level 8.0 MG/DL Magnesium Level 2.9 MG/DL Total Bilirubin 0.7 MG/DL Aspartate Amino Transf 95 U/L (AST/SGOT) Alanine Aminotransferase 106 U/L (ALT/SGPT) Alkaline Phosphatase 115 U/L B-Type Natriuretic Peptide 1051 PG/ML Total Protein 6.1 GM/DL Albumin 3.3 GM/DL Assessment and Plan Problem List: (1) NSTEMI (non-ST elevated myocardial infarction) (2) Aortic stenosis (3) Congestive heart failure (CHF) (4) Hypertension Assessment and Plan NSTEMI - no chest pain. LHC when breathing improves - moderate to severe mean gradient 20 mmHg and valve area 0.88 cm2 ARF - creatine continues to worsen HTN - improves and near normal, avoid CASEY-I due to hyperkalemia PNA - conitnue ABX and supplemental oxygen. O Problem Qualifiers (1) Aortic stenosis: Qualified Code: I35.0 - Aortic valve stenosis, unspecified etiology (2) Congestive heart failure (CHF): (3) Hypertension: Qualified Code: I10 - Essential hypertension Bandar Yu Sep 07, 2016 07:49
[2016-09-07] MEDS: CHLORHEXIDINE 0.12% (ORAL KIT) 15 ML CUP MT SCH ×2 (08:00→20:00)
--- NOTE | 2016-09-07 08:16 | HHI.FPPN ---
Subjective Remarks Pt was sleeping at time of exam, but awakened easily. On BIPAP at 50% FIO2 with good saturations. Says he feels the same as the previous day. Nurse at bedside stated that he had an uneventful night. (Eko,Rupali U R1) Objective Vitals Vital Signs Date Time Temp Pulse Resp B/P Pulse Ox O2 Delivery O2 Flow Rate FiO2 09/07/16 06:00 66 09/07/16 04:26 96 65 09/07/16 04:00 98 Partial Non-Rebreather 09/07/16 04:00 67 09/07/16 04:00 98.0 67 10 117/56 98 09/07/16 02:00 74 09/07/16 00:00 97.6 77 11 133/64 96 09/07/16 00:00 77 09/07/16 00:00 96 Partial Non-Rebreather 09/06/16 23:20 93 65 09/06/16 22:04 20 09/06/16 22:00 81 09/06/16 21:20 99 Partial Rebreather 15.00 09/06/16 20:00 98.1 79 16 145/72 98 09/06/16 20:00 79 09/06/16 20:00 96 Partial Non-Rebreather 09/06/16 18:00 76 09/06/16 16:00 97.6 78 18 140/69 96 09/06/16 16:00 96 Partial Non-Rebreather 09/06/16 16:00 78 09/06/16 14:00 74 09/06/16 14:00 99 Partial Non-Rebreather 09/06/16 12:00 97.1 70 14 135/66 100 09/06/16 12:00 70 09/06/16 10:00 72 09/06/16 09:07 100 Non-Rebreather 100 I/O 09/06/16 09/06/16 09/06/16 09/07/16 09/07/16 09/07/16 07:00 15:00 23:00 07:00 15:00 23:00 Intake Total 466 ml 2266 ml 601 ml 273 ml Output Total 300 ml 450 ml 400 ml 300 ml Balance 166 ml 1816 ml 201 ml -27 ml Intake Oral 800 ml 0 ml 0 ml IV Total 466 ml 1466 ml 601 ml 273 ml Output Urine Total 300 ml 450 ml 400 ml 300 ml # Bowel Movements 0 0 0 (Rupali Eddy MD R1) Result Diagram: 09/07/1642409/07/16424 Objective Remarks Gen.: Lying in bed, BIPAP in place, satting 95%. Head: Normocephalic. Atraumatic. EENT: Pupils equal round and reactive to light. Nose without drainage. Airway intact. Cardiovascular: Regular rate and rhythm. Systolic murmur heard best in the aortic area Respiratory: Improved aeration in lungs bilaterally Abdomen: Soft, nontender, nondistended. No peritoneal signs. Musculoskeletal: No gross deformities. No edema. Skin: No obvious rashes or erythema. Neuro: Sensory and motor grossly intact. Cranial nerves II through XII grossly intact. Psych: Smiles when awake, appropriately interacts with examiner (Rupali Eddy MD R1) A/P Assessment and Plan 71-year-old male who presented with a 5-day history of shortness of breath and nonproductive cough. ACS rule out positive for NSTEMI. Patient has a history of COPD and was admitted with sepsis with cardiology consultation for NSTEMI. Developed respiratory distress on 09/04 and was transferred to the ICU with critical care consult. Currently tolerating BiPAP and nonrebreather. Cardiology to perform left heart catheter when clinically better. Pulmonology on board. Nephrology consulted for PHILIPPE. Hematology consulted due to thrombocytopenia. Discharge Planning Pending clinical improvement (Rupali Eddy MD R1) Attending Attestation Patient seen and examined Case reviewed and discussed Agree with plan of care as discussed with me and documented in the resident note. (She Harris MD) Problem List: (1) Respiratory distress Status: Acute Plan: Improving. On BiPAP or NRB in the ICU -On Bumex drip -Critical care managing -Solu-Medrol 60 mg IV every 8 hours -DuoNeb's every 6 hours (2) NSTEMI (non-ST elevated myocardial infarction) Status: Acute Plan: -Patient with elevated troponins to 1.[address] elevations in V1 V3. -Cardiology following -Left heart catheter when clinically able to tolerate procedure (3) Aortic stenosis Status: Acute Plan: -Cardiothoracic surgery consulted -Cardiology and cardiothoracic surgery to discuss plans going forward -Will need to optimize medical management for the infectious process prior to performing any procedures -Pulmonology consulted given high surgical risk- appreciate recommendations (4) Pneumonia Status: Acute Plan: -Sputum culture growing strep pneumo -Antibiotics changed to Ceftarolin 300 mg IV every 12 today 09/07 (5) CHF due to valvular disease Status: Acute Plan: Echo performed on 09/02 showed EF of 5055 percent. Aortic valve with moderate to severe stenosis. -Coreg 3.125 mg by mouth every 12 hours -Bumex drip per critical care BiPAP or nonrebreather per critical care (6) Diabetes Status: Acute Plan: Patient's home regimen is NPH 25 units every morning and 50 units daily at bedtime -Require 24 units SSI in the last 24 hours -Continue Levemir 35 units in the a.m. and 30 units at night -SSI -Adjust insulin regimen as needed (7) COPD exacerbation Status: Acute Plan: Patient with known COPD and [id number] history of smoking Albuterol every 2 hours when necessary DuoNeb nebs every 4 hours scheduled Solu-Medrol 60 mg every 8 hours (8) Hyponatremia Status: Acute Plan: -Pseudohyponatremia vs SIADH vs some element of both -Serum osmolality elevated at 304 -Uric acid within normal limits -Will follow with daily BMPs -Strict I's and O's (9) Hypertension Status: Acute Plan: Continue Coreg. Hydralazine when necessary. Continue losartan Amlodipine discontinued currently (10) Thrombocytopenia Status: Acute Plan: -Platelets down to 83 today compared to 107 on 09/06 -Hematology consulted -Continue to monitor (11) Anxiety and depression Status: Acute Plan: -Continue home medications as follows: -Trazodone 100 mg by mouth daily -Sertraline 100 mg by mouth daily (12) BPH (benign prostatic hyperplasia) Status: Acute Plan: -History of BPH -Patient states history of using Flomax but not on current list of medications -Will consider starting Flomax if patient has symptoms (13) Severe sepsis Status: Resolved Plan: Septic on admission On Ceftarolin IV as above Repeat blood cultures negative to date Abx History: -Vancomycin 1250mg IV Q12h with pharmacy consult and Zosyn 3.375mg IV Q6h (dc ) -Azithromycin 500 mg by mouth every 24 hours started on 09/01. Dc'd on 09/07 (14) FEN/DVT PPX/GI PPX Status: Acute Plan: Fluids: Currently on IV fluids per critical care Electrolytes: Will monitor and replace as needed Nutrition: Heart healthy diet DVT Prophylaxis: Heparin 5000 units every 8 hours GI Prophylaxis: Protonix IV 40 mg daily (Rupali Eddy MD R1) Problem Qualifiers (1) Aortic stenosis: Qualified Code: I35.0 - Aortic valve stenosis, unspecified etiology (2) Pneumonia: Qualified Code: J18.9 - Pneumonia of both lungs due to infectious organism, unspecified part of lung (3) Diabetes: (4) Hypertension: Qualified Code: I10 - Essential hypertension Rupali Eddy MD R1 Sep 07, 2016 08:16 She Harris MD Sep 10, 2016 10:40
[2016-09-07] MEDS: PRAVASTATIN SOD 40 MG TAB PO SCH (09:16)
[2016-09-07] MEDS: PREGABALIN 75 MG CAP PO SCH ×2 (09:16→21:00)
[2016-09-07] MEDS: SERTRALINE HCL 100 MG TAB PO SCH (09:16)
[2016-09-07] MEDS: DOCUSATE SODIUM 50 MG/SENNA 8.6 MG TAB PO SCH (09:16)
[2016-09-07] MEDS: busPIRone HCL 10 MG TAB PO SCH ×2 (09:17→21:00)
[2016-09-07] MEDS: ASPIRIN 325 MG TAB PO SCH (09:17)
[2016-09-07] MEDS: FERROUS SULFATE 325 MG (65 MG ELEMENTAL IRON) TAB PO SCH ×2 (09:17→21:00)
[2016-09-07] MEDS: PRIMIDONE 50 MG TAB PO SCH ×3 (09:17→17:39)
[2016-09-07] MEDS: CARVEDILOL 6.25 MG TAB PO SCH ×2 (09:17→21:00)
[2016-09-07] MEDS ORDERED: BUMETANIDE INJ 1 MG/4 ML VIAL IV PUSH ONE ×2 (09:30→11:15)
--- NOTE | 2016-09-07 09:32 | HHI.CCPN ---
Subjective Remarks/Hospital Course The patient is a 71-year-old male with past medical history significant for COPD, aortic stenosis, hypertension and diabetes who presented to the emergency department with progressive shortness of breath and nonproductive cough for last 5 days. He was diagnosed and admitted to service on with [id number], COPD exacerbation and probable pneumonia. He had a previous heart catheterization in 2014, was told at that time he needed to have aortic valve replacement. He was started on IV antibiotics with Rocephin and azithromycin and also was placed on IV steroids and DuoNeb breathing treatment for probable COPD exacerbation. All the cultures so far negative, also negative for influenza A and B, negative for Streptococcus and Legionella antigen. Cardiology was consulted, and echo showed moderate to severe aortic stenosis. Cardiothoracic surgery was also consulted and is following, plan for cardiac catheterization this Tuesday. A Halicat was called today as the patient was increasingly lethargic with increased dyspnea and hypoxia. He desaturated to the 70% when RN attempted to move him. Chest x-ray showed bilateral pulmonary edema worsening compared to admission. He was moved to the ICU and critical care medicine was consulted. I evaluated the patient in ICU. He is tachypneic on 100% nonrebreather. Examination revealed bilateral crackles. 60 mg of IV Lasix stat given and patient was ordered to be placed on BiPAP at 06/16. BNP was 658 SUBJECT 09/05/16: Patient did not tolerate BiPAP overnight. Currently remains on partial nonrebreather. Urine output more than 6 L in 24 hours. He developed atrial flutter with RVR, was placed on esmolol which I have changed to Cardizem. Chest x-ray shows interval improvement in my review 09/06/16: Remains on pNRB. sputum cx with strep pneumo. Urine out put diminishing. 1L bolus given with adequate response. Bilateral lung infiltrate. Discussed with Dr. Dudley. Will hold off cath until Reps failure/ALI improves and renal failure improves 09.07 Patient is on BIPAP 06/16 with FIO2 65%. Afebrile. Objective Vital Signs Date Time Temp Pulse Resp B/P Pulse Ox O2 Delivery O2 Flow Rate FiO2 09/07/16 06:00 66 09/07/16 04:26 96 65 09/07/16 04:00 Partial Non-Rebreather 09/07/16 04:00 98.0 10 117/56 09/06/16 21:20 15.00 Intake and Output 09/06/16 09/06/16 09/07/16 08:00 16:00 00:00 Intake Total 466 ml 2266 ml 601 ml Output Total 300 ml 450 ml 400 ml Balance 166 ml 1816 ml 201 ml Result Diagram: 09/07/16 0425 09/07/16 0425 Other Results Laboratory Tests Test 09/07/16 04:25 White Blood Count 7.3 TH/MM3 Red Blood Count 3.40 MIL/MM3 Hemoglobin 9.3 GM/DL Hematocrit 28.0 % Mean Corpuscular Volume 82.4 FL Mean Corpuscular Hemoglobin 27.2 PG Mean Corpuscular Hemoglobin 33.0 % Concent Red Cell Distribution Width 16.0 % Platelet Count 83 TH/MM3 Mean Platelet Volume 8.6 FL Neutrophils (%) (Auto) 81.1 % Lymphocytes (%) (Auto) 8.8 % Monocytes (%) (Auto) 10.0 % Eosinophils (%) (Auto) 0.1 % Basophils (%) (Auto) 0.0 % Neutrophils # (Auto) 5.9 TH/MM3 Lymphocytes # (Auto) 0.6 TH/MM3 Monocytes # (Auto) 0.7 TH/MM3 Eosinophils # (Auto) 0.0 TH/MM3 Basophils # (Auto) 0.0 TH/MM3 CBC Comment AUTO DIFF Differential Comment AUTO DIFF CONFIRMED Platelet Estimate LOW Platelet Morphology Comment NORMAL Keratocytes OCC Sodium Level 128 MEQ/L Potassium Level 4.5 MEQ/L Chloride Level 90 MEQ/L Carbon Dioxide Level 27.7 MEQ/L Anion Gap 10 MEQ/L Blood Urea Nitrogen 72 MG/DL Creatinine 2.07 MG/DL Estimat Glomerular Filtration 32 ML/MIN Rate Random Glucose 201 MG/DL Calcium Level 8.0 MG/DL Magnesium Level 2.9 MG/DL Total Bilirubin 0.7 MG/DL Aspartate Amino Transf 95 U/L (AST/SGOT) Alanine Aminotransferase 106 U/L (ALT/SGPT) Alkaline Phosphatase 115 U/L B-Type Natriuretic Peptide 1051 PG/ML Total Protein 6.1 GM/DL Albumin 3.3 GM/DL Imaging Last Impressions Chest X-Ray 09/07/16 0600 Signed Impressions: Service Date/Time: Wednesday, September 07, 2016 05:14 - CONCLUSION: 1. Stable to slight worsening of bilateral airspace disease over the last day. Timbo Quarles MD Upper Extremity Ultrasound 09/06/16 0000 Signed Impressions: Service Date/Time: Tuesday, September 06, 2016 20:43 - CONCLUSION: No evidence of DVT. Isidro Oliver MD Chest CT 09/05/16 0000 Signed Impressions: Service Date/Time: Monday, September 05, 2016 15:37 - CONCLUSION: 1. Cardiomegaly with diffuse ground glass densities and consolidation likely pulmonary edema and/or pneumonia. 2. Small bilateral pleural effusions. 3. Prominent lymphadenopathy in the mediastinum. Cameron Archer MD Objective Remarks Gen: 71-year-old male lying in ICU bed on BIPAP Head: Normocephalic. Atraumatic. EENT: Pupils equal round and reactive to light. Cardiovascular: S1-S2 normal. Systolic murmur heard in the aortic area Respiratory: Bilateral rhonchi and bibasilar crackles Abdomen: Soft, nontender, nondistended. No peritoneal signs. Musculoskeletal: No gross deformities. No edema. Skin: No obvious rashes or erythema. Neuro: Alert awake oriented 3. No focal deficits A/P Assessment and Plan NEURO: -Minimize sedation, as needed morphine for pain, anxiety RESP: Acute hypoxemic respiratory failure requiring BiPAP ARDS Pneumococcal pneumonia COPD exacerbation -Continue with oxygen keep sat >92% -BiPAP 12/7 PRN for resp distress, -Continue IV Solu-Medrol 60mg Q8 and DuoNeb breathing treatments -EzPAP, Acapella every 6 hours CV: Severe aortic stenosis CHF NSTEMI -Monitor HR and BP keep MAP>65mmHg -Continue aspirin, Coreg, and pravastatin. -Cardiothoracic surgery and cardiology Dr. Dudley is following -[facility] with resp status and renal function improves. GI: -Elevated LFT's -On PO diet -Protonix for GI prophylaxis -Monitor LFT's check US abdomen. : Acute kidney injury Hyponatremia -Monitor renal function, I/O's, avoid nephrotoxins. -Cr 2.07 from 1.95 with UO: 1150ml in 24 hrs -Check renal US, diurese with Bumex 1mg x1 -Check serum and urine Osm, TSH ID: Sepsis Pneumococcal pneumonia -Continue abx per ID ( azithromycin, Rocephin 2 g IV every 24 hours). -Sputum culture positive for strep pneumo. Influenza negative HEME: -Monitor CBC, CMP, coags. Check Hep PLT ab ENDO: Type 2 diabetes Hypothyroidism -Sliding-scale insulin. Continue Levemir -Continue Synthroid 50 mcg daily. Check TSH PROPH: -Bilateral lower extremity SCDs. Protonix for GI prophylaxis. Hold Heparin SQ 2nd thrombocytopenia LINES: -Utilize peripheral IVs, central line if needed Level 3 Gerry Vivas MD Sep 07, 2016 09:32
--- NOTE | 2016-09-07 10:23 | PD.ID.CON ---
History of Present Illness Service ID Consult Requested By Reason for Consult Evaluation and Mment of Severe Sepsis, Strep pneumo resistant Pneumonia. Primary Care Physician Non-Staff Diagnoses: History of Present Illness Mr. Gudino is a 71-year-old male with PMHx significant for COPD, aortic stenosis, hypertension and diabetes who presented to the emergency department with progressive shortness of breath and nonproductive cough for last 5 days. He was diagnosed and admitted to service on 7 with non-ST -segment LA, COPD exacerbation and probable pneumonia. He had a previous heart catheterization in 2014, was told at that time he needed to have aortic valve replacement. He was started on IV antibiotics with Rocephin and azithromycin and also was placed on IV steroids and DuoNeb breathing treatment for probable COPD exacerbation. Negative for influenza A and B, negative for Streptococcus and Legionella antigen. Cardiology was consulted, and echo showed moderate to severe aortic stenosis. Cardiothoracic surgery was also consulted and is following, plan for cardiac catheterization. A Halicat was called today as the patient was increasingly lethargic with increased dyspnea and hypoxia. He desaturated to the 70% when RN attempted to move him. Chest x-ray showed bilateral pulmonary edema worsening compared to admission. He was moved to the ICU and critical care medicine was consulted. At the time of my evaluation patient is on BiPAP. UO adequate but renal function worsening. Alert and oriented x 3 with no neurological deficit. No rash. No diarrhea. ID is consulted for evaluation and Mment of Severe Sepsis and resistant Strep Pneumo Pneumonia. Review of Systems ROS Limitations: Other Constitutional: COMPLAINS OF: Fever, Chills, Night Sweats On BiPAP gets short of breath. Past Family Social History Allergies: Coded Allergies: Niacin (Unverified Allergy, Severe, GENERALIZED BURNING AND ITCHING, ) Past Medical History Hypertension Diabetes COPD Aortic stenosis-previously surgery recommended, patient did not pursue Anxiety and depression BPH Past Surgical History Bilateral knee surgery Reported Medications Reported Meds & Active Scripts Active Reported Trazodone (Trazodone HCl) 100 Mg Tab 100 Mg PO HS Sertraline (Sertraline HCl) 100 Mg Tab 100 Mg PO DAILY Primidone 50 Mg Tab 100 Mg PO TID Lyrica (Pregabalin) 150 Mg Cap 150 Mg PO BID Pravastatin 40 Mg Tab 40 Mg PO DAILY Omeprazole 20 Mg Cap Metformin ER (Metformin HCl) 500 Mg Jose Alfredo 500 Mg PO DAILY With evening meal Meloxicam 15 Mg Tab 15 Mg PO DAILY Losartan (Losartan Potassium) 50 Mg Tab 50 Mg PO DAILY Levothyroxine (Levothyroxine Sodium) 50 Mcg Tab 50 Mcg PO DAILY Novolog Inj (Insulin Aspart) 1,000 Unit/10 Ml Vial 5-25 Units SQ ACHS Max dose at bedtime:( )units; sugars less than 70,(0) units; sugars 150-199,(5) units; sugars 200-249,(10) units; sugars 250-299,(15) units; sugars 300-349,(20)units; sugars greater than 349,(25)units Novolin N Inj (Insulin Human NPH) 1,000 Unit/10 Ml Vial 0 SQ DIRECTED Sliding Scale As Directed. Glucose (Dextrose) 4 Gm Chew 4 Gm CHEW DIRECTED Cholecalciferol (Cholecalciferol (Bulk)) 1 Cry Cry Buspirone (Buspirone HCl) 10 Mg Tab 10 Mg PO BID Aspirin 81 (Aspirin) 81 Mg Tabdr 81 Mg PO DAILY Active Ordered Medications Current Medications Medications (Trade) Dose Ordered Sig/Dev Route Start Time Stop Time Status Last Admin (NS Flush) 2 ml UNSCH PRN IVF 08/31/16 11:15 09/06/16 07:45 (Apresoline) 10 mg Q6H PRN PO 08/31/16 13:45 (Zofran Inj) 4 mg Q6H PRN IV 08/31/16 13:45 (Zithromax) 500 mg Q24H PO 09/01/16 12:00 09/06/16 11:36 (Buspar) 10 mg BID PO 08/31/16 21:00 09/07/16 09:17 (Synthroid) 50 mcg DAILY@06 PO 09/01/16 06:00 09/07/16 06:35 (Pravachol) 40 mg DAILY PO 09/01/16 09:00 09/07/16 09:16 (Lyrica) 150 mg BID PO 08/31/16 21:00 09/07/16 09:16 (Mysoline) 100 mg TID PO 08/31/16 18:00 09/07/16 09:17 (Zoloft) 100 mg DAILY PO 09/01/16 09:00 09/07/16 09:16 (Desyrel) 100 mg HS PO 08/31/16 21:00 09/06/16 21:04 (D50w (Vial) Inj) 25 ml UNSCH PRN IV PUSH 08/31/16 14:00 09/04/16 11:47 (Glucagon Inj) 1 mg UNSCH PRN OTHER 08/31/16 14:00 (Aspirin) 325 mg DAILY PO 09/01/16 09:00 09/07/16 09:17 (Heparin Inj) 5,000 units Q8HR SQ 09/01/16 14:00 09/06/16 13:27 (Xanax) 0.5 mg Q12HR PRN PO 09/01/16 14:45 09/06/16 17:37 (SoluMEDROL INJ) 60 mg Q8H IV 09/03/16 17:00 09/07/16 09:16 (Levemir Inj) 25 units HS SQ 09/03/16 21:00 09/06/16 21:06 Miscellaneous Information Patient in critical care unit? Ass... [id number] XX 09/04/16 20:00 09/04/16 20:00 (Chlorhexidine 2% Cloth) 3 pack DAILY@04 TOP 09/05/16 04:00 09/09/16 04:01 09/07/16 04:00 (Chlorhexidine 2% Cloth) 3 pack UNSCH PRN TOP 09/04/16 20:00 09/09/16 19:51 (Morphine Inj) 2 mg Q4H PRN IV 09/05/16 11:30 09/06/16 16:06 (Ferrous Sulfate) 325 mg BID PO 09/06/16 09:00 09/07/16 09:17 (Coreg) 6.25 mg Q12HR PO 09/06/16 09:00 09/07/16 09:17 Chlorhexidine Gluconate 15 ml 15 ml BID@08,20 MT 09/06/16 20:00 Ceftriaxone Sodium 2000 mg/ Sodium Chloride 100 ml @ 200 mls/hr Q24H IV 09/06/16 18:00 09/06/16 20:10 (Flagyl 500 Mg Inj) 100 ml @ 100 mls/hr Q8H IV 09/06/16 18:00 09/07/16 09:18 (Shantelle-Colace) 2 tab DAILY PO 09/06/16 17:45 09/07/16 09:16 (Ativan Inj) 0.25 mg Q6H PRN IV PUSH 09/06/16 17:45 (NovoLOG SUPPLEMENTAL SCALE) 1 Q6H SQ 09/07/16 12:00 Family History Non contributory to current ID problems. Social History [id number] history of smoking, quit 8 years ago Did not drink alcohol\ at bedside. Physical Exam Vital Signs Vital Signs Date Time Temp Pulse Resp B/P Pulse Ox O2 Delivery O2 Flow Rate FiO2 09/07/16 06:00 66 09/07/16 04:26 96 65 09/07/16 04:00 98 Partial Non-Rebreather 09/07/16 04:00 67 09/07/16 04:00 98.0 67 10 117/56 98 09/07/16 02:00 74 09/07/16 00:00 97.6 77 11 133/64 96 09/07/16 00:00 77 09/07/16 00:00 96 Partial Non-Rebreather 09/06/16 23:20 93 65 09/06/16 22:04 20 09/06/16 22:00 81 09/06/16 21:20 99 Partial Rebreather 15.00 09/06/16 20:00 98.1 79 16 145/72 98 09/06/16 20:00 79 09/06/16 20:00 96 Partial Non-Rebreather 09/06/16 18:00 76 09/06/16 16:00 97.6 78 18 140/69 96 09/06/16 16:00 96 Partial Non-Rebreather 09/06/16 16:00 78 09/06/16 14:00 74 09/06/16 14:00 99 Partial Non-Rebreather 09/06/16 12:00 97.1 70 14 135/66 100 09/06/16 12:00 70 Physical Exam GENERAL: This is an obese, well-developed patient, in no apparent distress. SKIN: No rashes, ecchymoses or lesions. Cool and dry. HEAD: Atraumatic. Normocephalic. No temporal or scalp tenderness. EYES: Pupils equal round and reactive. Extraocular motions intact. No scleral icterus. No injection or drainage. ENT: Nose without bleeding, purulent drainage or septal hematoma. Throat without erythema, tonsillar hypertrophy or exudate. Uvula midline. Airway patent. NECK: Trachea midline. Supple, nontender, no meningeal signs. CARDIOVASCULAR: HS audible RESPIRATORY: Coarse bilateral breath sounds. Decreased air entry bilaterally. GASTROINTESTINAL: Abdomen soft, non-tender, Pendulous. MUSCULOSKELETAL: Extremities without clubbing, cyanosis, or edema. No joint tenderness, effusion, or edema noted. No calf tenderness. Negative Homans sign bilaterally. NEUROLOGICAL: Awake and alert. Grossly non focal. Psych: cooperative IV line sites with no e.o infection. Laboratory Laboratory Tests Test 09/07/16 04:25 White Blood Count 7.3 Red Blood Count 3.40 Hemoglobin 9.3 Hematocrit 28.0 Mean Corpuscular Volume 82.4 Mean Corpuscular Hemoglobin 27.2 Mean Corpuscular Hemoglobin 33.0 Concent Red Cell Distribution Width 16.0 Platelet Count 83 Mean Platelet Volume 8.6 Neutrophils (%) (Auto) 81.1 Lymphocytes (%) (Auto) 8.8 Monocytes (%) (Auto) 10.0 Eosinophils (%) (Auto) 0.1 Basophils (%) (Auto) 0.0 Neutrophils # (Auto) 5.9 Lymphocytes # (Auto) 0.6 Monocytes # (Auto) 0.7 Eosinophils # (Auto) 0.0 Basophils # (Auto) 0.0 CBC Comment AUTO DIFF Differential Comment AUTO DIFF CONFIRMED Platelet Estimate LOW Platelet Morphology Comment NORMAL Keratocytes OCC Sodium Level 128 Potassium Level 4.5 Chloride Level 90 Carbon Dioxide Level 27.7 Anion Gap 10 Blood Urea Nitrogen 72 Creatinine 2.07 Estimat Glomerular Filtration 32 Rate Random Glucose 201 Calcium Level 8.0 Magnesium Level 2.9 Total Bilirubin 0.7 Aspartate Amino Transf 95 (AST/SGOT) Alanine Aminotransferase 106 (ALT/SGPT) Alkaline Phosphatase 115 B-Type Natriuretic Peptide 1051 Total Protein 6.1 Albumin 3.3 Thyroid Stimulating Hormone 0.373 3rd Gen Date/Time Procedure Status Source Growth 09/03/16 12:40 Gram Stain - Final Resulted Sputum Expectorated Sputum 09/03/16 12:40 Sputum Culture - Preliminary Resulted Streptococcus Pneumoniae 09/03/16 11:18 Aerobic Blood Culture - Preliminary Resulted Blood Peripheral NO GROWTH IN 3 DAYS 09/03/16 11:18 Anaerobic Blood Culture - Preliminary Resulted Blood Peripheral NO GROWTH IN 3 DAYS Result Diagram: 09/07/16 0425 09/07/165 Imaging Last Impressions Chest X-Ray 09/07/16 0600 Signed Impressions: Service Date/Time: Wednesday, September 07, 2016 05:14 - CONCLUSION: 1. Stable to slight worsening of bilateral airspace disease over the last day. Timbo Quarles MD Upper Extremity Ultrasound 09/06/16 0000 Signed Impressions: Service Date/Time: Tuesday, September 06, 2016 20:43 - CONCLUSION: No evidence of DVT. Isidro Oliver MD Chest CT 09/05/16 0000 Signed Impressions: Service Date/Time: Monday, September 05, 2016 15:37 - CONCLUSION: 1. Cardiomegaly with diffuse ground glass densities and consolidation likely pulmonary edema and/or pneumonia. 2. Small bilateral pleural effusions. 3. Prominent lymphadenopathy in the mediastinum. Cameron Archer MD Assessment and Plan Assessment and Plan Sepsis Resistant Strep Pneumonia. Possible larger component of pulm edema at present time. Acute resp failure on BiPAP Acute renal failure: sepsis, prerenal Acute transaminitis: sepsis Acute COPD exacerbation Severe Aortic Stenosis with Pulm edema Recs DC Vanco IV DC Rocephin IV DC Azithro IV DC Flagyl IV Start Teflaro IV (renal dose adjusted d.w Pharmacist in ICU) (ASP: PCN and Ceph resistant Strep Pneumo Pneumonia) d.w Micro: susceptibility on Sputum Strep resistant to PCN and Cephalosporins. Follow cultures Follow clinically. Cesia Myrickw RN d/w patient and in room. Avoid Nephrotoxins CXR reviewed by me. Follow LFTs, Cr and CBC. Saba Henderson MD Sep 07, 2016 10:23
[2016-09-07] MEDS ORDERED: CEFTAROLINE INJ 600 MG in SODIUM CHLORIDE 0.9% INJ 100 ML IV SCH (10:45)
[2016-09-07] MEDS: ALPRAZolam 0.5 MG TAB PO PRN (11:42)
[2016-09-07] MEDS: BUMETANIDE INJ 100 ML IV SCH ×2 (11:43→22:58)
[2016-09-07] MEDS: CEFTAROLINE INJ 300 MG in SODIUM CHLORIDE 0.9% INJ 100 ML IV SCH (11:43)
--- NOTE | 2016-09-07 12:52 | PD.CONS ---
HPI Service Nephrology Consult Requested By Reason for Consult Acute renal failure Primary Care Physician Non-Staff History of Present Illness This is a 71 y/o pt who was admitted with shortness of breath. He was a [employer] call for desaturations and transferred to [facility] [place]. Over the past few days his renal function has declined. He is non oliguric. PMH outlined below includes HTN and DM, there is no hx of renal disorders. He is being treated for COPD exacerbation with Pnuemonia. He is demonstrating fluid overload, is on non rebreather. His family at bedside. He is a full code. (Prachi Palencia) Review of Systems Constitutional: COMPLAINS OF: Fatigue Respiratory: COMPLAINS OF: Cough, Shortness of breath Cardiovascular: DENIES: Chest pain (Prachi Palencia) Past Family Social History Allergies: Coded Allergies: Niacin (Unverified Allergy, Severe, GENERALIZED BURNING AND ITCHING, ) Past Medical History Hypertension Diabetes COPD Aortic stenosis-previously surgery recommended, patient did not pursue Anxiety and depression BPH Past Surgical History Knee surgery Reported Medications Current Medications Medications (Trade) Dose Ordered Sig/Dev Route Start Time Stop Time Status Last Admin (NS Flush) 2 ml UNSCH PRN IVF 08/31/16 11:15 09/06/16 07:45 (Apresoline) 10 mg Q6H PRN PO 08/31/16 13:45 (Zofran Inj) 4 mg Q6H PRN IV 08/31/16 13:45 (Buspar) 10 mg BID PO 08/31/16 21:00 09/07/16 09:17 (Synthroid) 50 mcg DAILY@06 PO 09/01/16 06:00 09/07/16 06:35 (Pravachol) 40 mg DAILY PO 09/01/16 09:00 09/07/16 09:16 (Lyrica) 150 mg BID PO 08/31/16 21:00 09/07/16 09:16 (Mysoline) 100 mg TID PO 08/31/16 18:00 09/07/16 09:17 (Zoloft) 100 mg DAILY PO 09/01/16 09:00 09/07/16 09:16 (Desyrel) 100 mg HS PO 08/31/16 21:00 09/06/16 21:04 (D50w (Vial) Inj) 25 ml UNSCH PRN IV PUSH 08/31/16 14:00 09/04/16 11:47 (Glucagon Inj) 1 mg UNSCH PRN OTHER 08/31/16 14:00 (Aspirin) 325 mg DAILY PO 09/01/16 09:00 09/07/16 09:17 (Heparin Inj) 5,000 units Q8HR SQ 09/01/16 14:00 09/06/16 13:27 (Xanax) 0.5 mg Q12HR PRN PO 09/01/16 14:45 09/07/16 11:42 (SoluMEDROL INJ) 60 mg Q8H IV 09/03/16 17:00 09/07/16 09:16 (Levemir Inj) 25 units HS SQ 09/03/16 21:00 09/06/16 21:06 Miscellaneous Information Patient in critical care unit? Ass... [id number] XX 09/04/16 20:00 09/04/16 20:00 (Chlorhexidine 2% Cloth) 3 pack DAILY@04 TOP 09/05/16 04:00 09/09/16 04:01 09/07/16 04:00 (Chlorhexidine 2% Cloth) 3 pack UNSCH PRN TOP 09/04/16 20:00 09/09/16 19:51 (Morphine Inj) 2 mg Q4H PRN IV 09/05/16 11:30 09/06/16 16:06 (Ferrous Sulfate) 325 mg BID PO 09/06/16 09:00 09/07/16 09:17 (Coreg) 6.25 mg Q12HR PO 09/06/16 09:00 09/07/16 09:17 (Peridex 0.12% Liq) 15 ml BID@08,20 MT 09/06/16 20:00 (Shantelle-Colace) 2 tab DAILY PO 09/06/16 17:45 09/07/16 09:16 (Ativan Inj) 0.25 mg Q6H PRN IV PUSH 09/06/16 17:45 Insulin Aspart 1 1 Q6H SQ 09/07/16 12:00 Ceftaroline Fosamil 300 mg/ Sodium Chloride 100 ml @ 100 mls/hr Q12H IV 09/07/16 12:00 09/07/16 11:43 (Bumex Inj) 100 ml @ 8 mls/hr CONTINUOUS IV 09/07/16 13:15 09/07/16 11:43 Active Ordered Medications home medications reviewed in EMR Family History No hx of renal disorders Social History former smoker and ETOH , lives with sits in chair all day 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 (Prachi Palencia) Physical Exam Vital Signs Vital Signs Date Time Temp Pulse Resp B/P Pulse Ox O2 Delivery O2 Flow Rate FiO2 09/07/16 12:26 97 Partial Rebreather 100 09/07/16 11:41 18 09/07/16 06:00 66 09/07/16 04:26 96 65 09/07/16 04:00 98 Partial Non-Rebreather 09/07/16 04:00 67 09/07/16 04:00 98.0 67 10 117/56 98 09/07/16 02:00 74 09/07/16 00:00 97.6 77 11 133/64 96 09/07/16 00:00 77 09/07/16 00:00 96 Partial Non-Rebreather 09/06/16 23:20 93 65 09/06/16 22:00 81 09/06/16 21:20 99 Partial Rebreather 15.00 09/06/16 20:00 98.1 79 16 145/72 98 09/06/16 20:00 79 09/06/16 20:00 96 Partial Non-Rebreather 09/06/16 18:00 76 09/06/16 16:00 97.6 78 18 140/69 96 09/06/16 16:00 96 Partial Non-Rebreather 09/06/16 16:00 78 09/06/16 14:00 74 09/06/16 14:00 99 Partial Non-Rebreather Physical Exam Elderly male, awake, slow to respond, denies complaints cv: HR 74, regular rate/rhythm, 2/6 murmur lungs: bibasilar rales abd: round, soft ext: 2+ edema ortega draining Laboratory Laboratory Tests Test 09/07/16 09/07/16 04:25 11:11 White Blood Count 7.3 Red Blood Count 3.40 Hemoglobin 9.3 Hematocrit 28.0 Mean Corpuscular Volume 82.4 Mean Corpuscular Hemoglobin 27.2 Mean Corpuscular Hemoglobin 33.0 Concent Red Cell Distribution Width 16.0 Platelet Count 83 Mean Platelet Volume 8.6 Neutrophils (%) (Auto) 81.1 Lymphocytes (%) (Auto) 8.8 Monocytes (%) (Auto) 10.0 Eosinophils (%) (Auto) 0.1 Basophils (%) (Auto) 0.0 Neutrophils # (Auto) 5.9 Lymphocytes # (Auto) 0.6 Monocytes # (Auto) 0.7 Eosinophils # (Auto) 0.0 Basophils # (Auto) 0.0 CBC Comment AUTO DIFF Differential Comment AUTO DIFF CONFIRMED Platelet Estimate LOW Platelet Morphology Comment NORMAL Keratocytes OCC Sodium Level 128 Potassium Level 4.5 Chloride Level 90 Carbon Dioxide Level 27.7 Anion Gap 10 Blood Urea Nitrogen 72 Creatinine 2.07 Estimat Glomerular Filtration 32 Rate Random Glucose 201 Calcium Level 8.0 Magnesium Level 2.9 Total Bilirubin 0.7 Aspartate Amino Transf 95 (AST/SGOT) Alanine Aminotransferase 106 (ALT/SGPT) Alkaline Phosphatase 115 B-Type Natriuretic Peptide 1051 Total Protein 6.1 Albumin 3.3 Thyroid Stimulating Hormone 0.373 3rd Gen Serum Osmolality 304 Date/Time Procedure Status Source Growth 09/03/16 12:40 Gram Stain - Final Resulted Sputum Expectorated Sputum 09/03/16 12:40 Sputum Culture - Preliminary Resulted Streptococcus Pneumoniae 09/03/16 11:18 Aerobic Blood Culture - Preliminary Resulted Blood Peripheral NO GROWTH IN 4 DAYS 09/03/16 11:18 Anaerobic Blood Culture - Preliminary Resulted Blood Peripheral NO GROWTH IN 4 DAYS (Prachi Palencia) Result Diagram: 09/07/16 0425 09/07/16 0425 Imaging Last Impressions Chest X-Ray 09/07/16 0600 Signed Impressions: Service Date/Time: Wednesday, September 07, 2016 05:14 - CONCLUSION: 1. Stable to slight worsening of bilateral airspace disease over the last day. Timbo Quarles MD Upper Extremity Ultrasound 09/06/16 0000 Signed Impressions: Service Date/Time: Tuesday, September 06, 2016 20:43 - CONCLUSION: No evidence of DVT. Isidro Oliver MD Chest CT 09/05/16 0000 Signed Impressions: Service Date/Time: Monday, September 05, 2016 15:37 - CONCLUSION: 1. Cardiomegaly with diffuse ground glass densities and consolidation likely pulmonary edema and/or pneumonia. 2. Small bilateral pleural effusions. 3. Prominent lymphadenopathy in the mediastinum. Cameron Archer MD (Prachi Palencia) Assessment and Plan Problem List: (1) PHILIPPE (acute kidney injury) Plan: in a pt with normal renal function on 09/04, PHILIPPE has developed since may be prerenal due to CHF exacerbation he is non oliguric continue ortega care with I/o measurement Bumex 2 mg IV followed by gtt at 2 mg/hr, monitor response follow electrolytes, replace as needed currently on abx, they have been changed and he is now on Telfaro, ID following avoid IVF at this time he is hyponatremic (likely hypervolemic), continue fluid restriction and diuresis daily renal panel (2) Congestive heart failure (CHF) Plan: monitor fluid volume status diureses as above (3) Diabetes Plan: continue insulin therapy monitor glucose, goal 140-180 mg/dL (4) Hypertension Plan: not on pressors monitor BP, medicate per admitting team (Prachi Palencia) Problem List: (1) PHILIPPE (acute kidney injury) Plan: May have developed ATN due to hypoperfusion injury. He has positive fluid balance, up by more than 12 kg since admission. CXR reveals bilateral alveolar infiltrates. He has Streptococcus pneumoniae in the blood. At this time, I will stop IVF, start Bumex drip. If unsuccessful, he will need dialysis. Prognosis is guarded at this time. Obtain US to rule out obstructive uropathy. Avoid nephrotoxic agents. (2) Congestive heart failure (CHF) Plan: monitor fluid volume status diureses as above (3) Diabetes Plan: continue insulin therapy monitor glucose, goal 140-180 mg/dL (4) Hypertension Plan: not on pressors monitor BP, medicate per admitting team Assessment and Plan patient was seen and examined. Start Bumex drip and monitor. May need dialysis. (Gentry Roa MD) Problem Qualifiers (1) Congestive heart failure (CHF): (2) Diabetes: (3) Hypertension: Qualified Code: I10 - Essential hypertension Prachi Palencia Sep 07, 2016 12:52 Gentry Roa MD Sep 07, 2016 16:39
[2016-09-07 13:55] LABS: BACTERIA, URINE OCC /hpf; BLOOD, URINE LARGE (NEG); COMMENT (UR) CATH-CULTURE IND; CULTURE IF INDICATED CATH CULTURE IND; GLUCOSE,URINE NEG (NEG); HYALINE CAST, URINE 95 /lpf (RARE); KETONE, URINE NEG (NEG); MUCUS URINE FEW /lpf (OCC); NITRITE,URINE NEG (NEG); SQUAMOUS EPITHELIAL CELL URINE 4 /hpf (0-5); TRANSITIONAL EPI CELLS, URINE <1 /hpf; URINE COLOR YELLOW (YELLW/STRAW)
[2016-09-07] MEDS: LORazepam 2 MG/ML VIAL IV PUSH PRN (14:47)
--- NOTE | 2016-09-07 18:38 | RADRPT ---
EXAM DATE/TIME: 09/07/2016 16:45 [facility] COMPARISON: No previous studies available for comparison. INDICATIONS : Elevated liver function and Bun and Creatine. MEDICAL HISTORY : Thyroid disease. Hypertension. COPD. Dyspnea. Arthritis. Gastroesophageal reflux disease. Cardiac di sorders. SURGICAL HISTORY : Bilateral knee replacement. ENCOUNTER: Subsequent ACUITY: 1 day PAIN SCORE: Nonresponsive. LOCATION: Bilateral upper quadrant MEASUREMENTS: LIVER: 14.9 cm length COMMON DUCT: Non-visualized RIGHT KIDNEY: 10.5 x 5.4 x 5.4 cm LEFT KIDNEY: 11.7 x 5.3 x 5.1 cm SPLEEN: 15.0 cm length AORTA: 2.2cm maximal FINDINGS: LIVER: Heterogeneous echotexture remains evident throughout the liver. There are no discrete focal lesions o r evidence of ductal dilatation. Free fluid is identified surrounding the liver. Portal vein is paten t. COMMON DUCT: Not visualized. GALLBLADDER: The gallbladder wall is hyperechoic and thickened measuring 5.7 mm. There are no intraluminal filling defects. PANCREAS: The pancreas is incompletely visualized. RIGHT KIDNEY: No hydronephrosis, stone or mass. LEFT KIDNEY: No hydronephrosis, stone or mass. SPLEEN: Markedly enlarged. AORTA: Non aneurysmal. IVC: Within normal limits. CONCLUSION: Heterogeneous hepatic echotexture consistent with chronic liver disease. Splenomegaly Mild to moderate ascites Mildly thickened gallbladder wall without evidence of gallstones. No evidence of hydronephrosis. Isidro Oliver MD on September 07, 2016 at 18:32 Board Certified Radiologist. This report was verified electronically.
--- NOTE | 2016-09-07 19:32 | MB ---
cc: KIRILL KINNEY DATE OF CONSULTATION 09/07/2016 DATE OF 1945 REASON FOR CONSULTATION Patient with acute thrombocytopenia. HISTORY OF PRESENT ILLNESS Mr. Gudino is a 71-year-old male with a history of COPD, hypertension, diabetes and aortic stenosis who presented to the emergency room with progressive dyspnea and nonproductive cough. He was found to have a non-ST segment NE, COPD exacerbation and pneumonia on admission. He was admitted to the hospital. He was started on IV antibiotics and breathing treatments. Cardiology was consulted. An echocardiogram was performed which showed severe aortic stenosis. Cardiothoracic surgery was also consulted. The patient acutely decompensated with worsening dyspnea, hypoxia and lethargy. He was transferred to the intensive care unit. He was found to be volume overloaded and required diuresis. He was placed on BiPap. He is now being transitioned to non-rebreather mask. He remains on antibiotics including azithromycin and Rocephin. The patient also has transaminitis and acute kidney injury. The patient was on prophylactic heparin which has been stopped. He had developed acute thrombocytopenia on 09/03/2016. His platelet count was 162,000. This has precipitously dropped to 83,000 on 09/07. On admission his platelet count was 98,000 and has fluctuated. Upon review of the records the patient has had fluctuating platelet counts in the past, and they have ranged anywhere from 82,000 to the normal range of greater than 150,000. The patient has no known previous history of ITP or a blood disorder. During this course of his admission he has not had any bleeding. There is no evidence of any petechiae or bruising. REVIEW OF SYSTEMS A comprehensive 14-point review of systems was completed which is negative except as described in the HPI. PAST MEDICAL HISTORY 1. Hypertension. 2. COPD. 3. Diabetes. 4. Aortic stenosis. 5. Anxiety, depression. 6. BPH. PAST SURGICAL HISTORY Bilateral knee surgery. FAMILY HISTORY The family history was reviewed and is noncontributory to this admission. SOCIAL HISTORY He has greater than 40 pack-years of smoking history. He quit 8 years ago. He does not drink alcohol. No illicit drug use. MEDICATIONS 1. Insulin. 2. Levemir 35 units a.c. breakfast. 3. Levemir 30 units q.h.s. 4. Bumetanide 2 milligrams per hour IV. 5. Sliding scale insulin. 6. Senna two tablets daily. 7. Ativan 0.25 milligrams IV q.6h p.r.n. 8. Ferrous sulfate 325 milligrams one tablet p.o. twice a day. 9. Carvedilol 6.25 mg one tablet p.o. q.12h. 10. Morphine IV 2 mg IV q.4 h. 11. DuoNebs. 12. Solu-Medrol 60 mg IV q.8h. 13. Xanax 0.5 mg one tablet p.o. q.12h. 14. Pravachol 40 mg one tablet p.o. daily. 15. Zoloft 100 mg one tablet p.o. daily. 16. Aspirin 325 mg one tablet p.o. daily. 17. Synthroid 50 mcg one tablet p.o. daily. 18. BuSpar 10 mg one tablet p.o. daily. 19. Lyrica 150 milligrams one tablet p.o. daily. 20. Trazodone 100 mg p.o. q.h.s. 21. Primidone 100 mg p.o. t.i.d. 22. Zofran 4 mg IV q.6h p.r.n. ALLERGIES HE IS ALLERGIC TO NIACIN. LABORATORY DATA WBC 7.3, hemoglobin is 9.3, platelet count is 83. Serum chemistries show sodium 128, potassium 4.5, chloride 90, BUN 72, creatinine 2.07, calcium is 8.0, magnesium is 2.9. Total bilirubin is 0.7, AST 95, ALT is 106. BNP is 1000. Total protein 6.1, albumin is 3.3. Coags show a PT of 13.4. INR 1.2. PTT 28.1. UA shows large leukocyte esterase. Urine wbc's are 64. Urine protein is elevated at 30. Urine nitrite is negative. HIT antibody is pending. IMAGING STUDIES Chest x-ray was reviewed. There is bilateral airspace disease. Abdominal ultrasound is pending. Doppler ultrasound of upper extremities did not show any evidence of DVT. CT of the chest shows cardiomegaly with ground glass densities and consolidation consistent with pulmonary edema or pneumonia. There is prominent lymphadenopathy in the mediastinum. ASSESSMENT/PLAN This is a 71-year-old male who is acutely ill and has multiple medical issues including acute hypoxemic respiratory failure currently on non-rebreather mask, COPD exacerbation, pulmonary edema, severe aortic stenosis, [id number] NE, pneumonia on multiple antibiotics including Zosyn, azithromycin. Vancomycin was discontinued. I have been consulted to assess his thrombocytopenia. 1. Thrombocytopenia. There are multiple factors contributing to his thrombocytopenia including acute illness and sepsis. He was on vancomycin which can certainly depress platelet counts. He has had low platelets in the past. It is unclear whether he ever had followup with a coffee host. He does not have a formal diagnosis of ITP but there is currently a possibility. His platelet count has fluctuated between 80,000 to a normal platelet count of 150,000 and sometimes above this. I do not believe that this is TTP. There is a possibility of DIC. We will obtain a DIC panel. HIT is a possibility. I would recommend discontinuing heparin and all heparin related products. HIT antibody panel is pending. We will follow up on this. Many times the HIT antibody is falsely positive in acutely ill patients. If HIT antibody testing is positive, then serotonin release assay will be ordered. At this time I would not start him on anticoagulation with argatroban. We will check LDH and haptoglobin. Check hepatitis panel and HIV panel. Abdominal ultrasound is pending to assess for any hepatosplenomegaly. 2. Normocytic anemia with hemoglobin 9.3. MCV is 82.4. Obtain anemia studies. His total bilirubin is normal so I do not believe that he does have massive hemolysis. We will check haptoglobin, LDH and direct Shabbir test. Obtain a stool hemoccult. 3. Acute respiratory failure. He is currently on a non-rebreather rebreather mask. 4. Transaminitis. Check hepatitis panel as stated above. 5. Pneumonia / sepsis. He is currently on azithromycin and Rocephin. 6. Acute kidney injury. His kidney functions are slowly improving. 7. Severe aortic stenosis with CHF currently being managed by cardiology and CT surgery. Thank you for allowing me to participate in the care of this patient. I will continue to follow this patient along. MD KEVEN Pritchard/HILDA /6:25 PM /6:56 PM ROSIO
--- NOTE | 2016-09-07 19:45 | HHI.PR ---
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, diureasing maintains good sat on PRB Objective Vital Signs Vital Signs Date Time Temp Pulse Resp B/P Pulse Ox O2 Delivery O2 Flow Rate FiO2 09/07/16 18:00 79 09/07/16 16:00 95 Partial Non-Rebreather 09/07/16 16:00 77 09/07/16 16:00 97.4 77 13 148/67 100 09/07/16 14:00 76 09/07/16 12:26 97 Partial Rebreather 100 09/07/16 12:00 97.2 75 15 147/106 95 09/07/16 12:00 95 Partial Non-Rebreather 09/07/16 12:00 75 09/07/16 11:41 18 09/07/16 10:00 71 09/07/16 08:00 95 Partial Non-Rebreather 09/07/16 08:00 68 09/07/16 08:00 97.1 68 17 129/80 95 09/07/16 06:00 66 09/07/16 04:26 96 65 09/07/16 04:00 98 Partial Non-Rebreather 09/07/16 04:00 67 09/07/16 04:00 98.0 67 10 117/56 98 09/07/16 02:00 74 09/07/16 00:00 97.6 77 11 133/64 96 09/07/16 00:00 77 09/07/16 00:00 96 Partial Non-Rebreather 09/06/16 23:20 93 65 09/06/16 22:00 81 09/06/16 21:20 99 Partial Rebreather 15.00 09/06/16 20:00 98.1 79 16 145/72 98 09/06/16 20:00 79 09/06/16 20:00 96 Partial Non-Rebreather I/O 09/06/16 09/06/16 09/06/16 09/07/16 09/07/16 09/07/16 07:00 15:00 23:00 07:00 15:00 23:00 Intake Total 466 ml 2266 ml 601 ml 273 ml 990 ml Output Total 300 ml 450 ml 400 ml 300 ml 1750 ml Balance 166 ml 1816 ml 201 ml -27 ml -760 ml Intake Oral 800 ml 0 ml 0 ml 480 ml IV Total 466 ml 1466 ml 601 ml 273 ml 510 ml Output Urine Total 300 ml 450 ml 400 ml 300 ml 1750 ml # Bowel Movements 0 0 0 0 Result Diagram: 09/07/1642409/07/16424 Objective Remarks GENERAL: Obese WM, mild sob SKIN: Warm and dry. HEAD: Normocephalic. EYES: No scleral icterus. No injection or drainage. NECK: Supple, trachea midline. No JVD or lymphadenopathy. CARDIOVASCULAR: Regular rate and rhythm without murmurs, gallops, or rubs. RESPIRATORY: Breath sounds equal bilaterally. No accessory muscle use. GASTROINTESTINAL: Abdomen soft, non-tender, nondistended. MUSCULOSKELETAL: No cyanosis, or edema. BACK: Nontender without obvious deformity. No CVA tenderness. A/P Assessment and Plan Resp insuff COPD Lung infilt DM Ch. Pain PLAN: Cont Abx IV Solumedrol Supplement 02 with PRB and wean 02 Aerosol nebs Monitor BS Bumex drip BIPAP prn Kai Escobedo MD Sep 07, 2016 19:45
[2016-09-07] MEDS: traZODone HCL 100 MG TAB PO SCH (21:00)
[2016-09-08] VITALS (17 sets, daily range): BP systolic 110–176; BP diastolic 56–73; PULSE 70–133; RESP 11–26; TEMP 97–98.5; O2SAT 93–98
[2016-09-08] MEDS: CEFTAROLINE INJ 300 MG in SODIUM CHLORIDE 0.9% INJ 100 ML IV SCH ×3 (00:47→23:17)
[2016-09-08] MEDS: INSULIN ASPART SUPPLEMENTAL SCALE SQ SCH ×5 (00:51→23:17)
[2016-09-08] MEDS: CHLORHEXIDINE GLUCONATE 2 % 1 PACK (2 CLOTHS)(taper/protocol) TOP SCH (00:56)
[2016-09-08] MEDS: methylPREDNISolone SOD SUCC 40 MG/1 ML VIAL IV SCH ×3 (00:56→21:10)
[2016-09-08 02:53] LABS: AUTOMATED NEUTROPHIL # 4.7 TH/MM3 (1.8-7.7); BASOPHIL # 0.1 TH/MM3 (0-0.2); BASOPHIL % 1.2 % (0.0-2.0); EOSINOPHIL % 0.2 % (0.0-4.0); HEMATOCRIT 32.4 % (39.0-51.0); LYMPHOCYTE # 0.5 TH/MM3 (1.0-4.8); MEAN CELL VOLUME 82.8 FL (80.0-100.0); MEAN CORPUSCULAR HEMOGLOBIN 26.8 PG (27.0-34.0); MEAN CORPUSCULAR HGB CONC 32.3 % (32.0-36.0); MONO % 7.2 % (0.0-8.0); NEUT % 83.4 % (16.0-70.0); PLATELET COUNT 77 TH/MM3 (150-450); RED BLOOD COUNT 3.91 MIL/MM3 (4.50-5.90); RED CELL DISTRIBUTION WIDTH 16.1 % (11.6-17.2); WHITE BLOOD COUNT 5.7 TH/MM3 (4.0-11.0)
[2016-09-08 02:56] LABS: HEMO FLAGS AUTO DIFF
[2016-09-08 03:20] LABS: BLOOD UREA NITROGEN 71 MG/DL (7-18)
[2016-09-08 03:21] LABS: ALT (GPT) 100 U/L (12-78); ANION GAP 9 MEQ/L (5-15); AST (GOT) 57 U/L (15-37); BICARBONATE 33.7 MEQ/L (21.0-32.0); CHLORIDE 93 MEQ/L (98-107); GLOMERULAR FILTRATION RATE 46 ML/MIN (>89); SODIUM (NA) 136 MEQ/L (136-145)
[2016-09-08 03:23] LABS: ALKALINE PHOSPHATASE 134 U/L (45-117); LDH SERUM 377 U/L (87-241); TOTAL BILIRUBIN ADULT 0.7 MG/DL (0.2-1.0)
[2016-09-08] MEDS: RESP: ALBUTEROL 2.5 MG/IPRATROPIUM 0.5 MG NEB (SCH) NEB ×4 (03:31→19:24)
[2016-09-08 03:51] LABS: PLATELET ESTIMATE SMEAR LOW (NORMAL); SCAN/DIFF AUTO DIFF CONFIRMED
[2016-09-08 03:52] LABS: PLATELET MORPHOLOGY ENLARGED (NORMAL)
[2016-09-08] MEDS: LEVOTHYROXINE SODIUM 50 MCG TAB PO SCH (05:48)
[2016-09-08] MEDS: INSULIN DETEMIR 100 UNITS/ML VIAL SQ SCH ×2 (06:51→21:10)
[2016-09-08] MEDS: CHLORHEXIDINE 0.12% (ORAL KIT) 15 ML CUP MT SCH ×2 (08:00→20:00)
--- NOTE | 2016-09-08 08:05 | HHI.FPPN ---
Subjective Remarks Mr. Gudino is doing much better today. He was more awake and alert this morning, he asked for the time and asked for breakfast. His breathing is much improved. He was on BiPAP all night, and was started on partial nonrebreather around 6 AM this morning. Patient's night nurse states that around 6 AM, he had a four-minute episode of sinus tach up to 130 bpm after a coughing feat. The sinus tach resolved spontaneously without intervention. Notably, he was on a Bumex drip in the past 24 hours with 7.6 L of fluid removed. (Eko,Rupali Stewart MD R1) Objective Vitals Vital Signs Date Time Temp Pulse Resp B/P Pulse Ox O2 Delivery O2 Flow Rate FiO2 09/08/16 06:00 133 09/08/16 04:18 93 50 09/08/16 04:00 72 09/08/16 04:00 96 Bi-Pap 09/08/16 04:00 98.5 72 23 151/66 96 09/08/16 02:00 71 09/08/16 01:23 95 50 09/08/16 00:00 98.1 70 11 110/56 95 09/08/16 00:00 70 09/08/16 00:00 95 Bi-Pap 09/07/16 22:30 92 50 09/07/16 22:00 83 09/07/16 22:00 95 Bi-Pap 09/07/16 22:00 19 09/07/16 20:23 99 Partial Rebreather 15.00 09/07/16 20:00 97.9 78 11 161/70 100 09/07/16 20:00 100 Partial Non-Rebreather 09/07/16 20:00 78 09/07/16 18:00 79 09/07/16 16:00 95 Partial Non-Rebreather 09/07/16 16:00 77 09/07/16 16:00 97.4 77 13 148/67 100 09/07/16 14:00 76 09/07/16 12:26 97 Partial Rebreather 100 09/07/16 12:00 97.2 75 15 147/106 95 09/07/16 12:00 95 Partial Non-Rebreather 09/07/16 12:00 75 09/07/16 10:00 71 I/O 2/28/17 2/09/07/16 09/08/16 09/08/16 09/08/16 07:00 15:00 23:00 07:00 15:00 23:00 Intake Total 273 ml 990 ml 351 ml 249 ml Output Total 300 ml 1750 ml 3650 ml 3800 ml Balance -27 ml -760 ml -3299 ml -3551 ml Intake Oral 0 ml 480 ml 250 ml 90 ml IV Total 273 ml 510 ml 101 ml 159 ml Output Urine Total 300 ml 1750 ml 3650 ml 3800 ml # Bowel Movements 0 0 1 0 (Eko,Rupali U R1) Result Diagram: 09/08/16 0207 09/08/16 0207 Imaging Last Impressions Chest X-Ray 09/07/16 0600 Signed Impressions: Service Date/Time: Wednesday, September 07, 2016 05:14 - CONCLUSION: 1. Stable to slight worsening of bilateral airspace disease over the last day. Timbo Quarles MD Abdomen Ultrasound 09/07/16 0000 Signed Impressions: Service Date/Time: Wednesday, September 07, 2016 16:45 - CONCLUSION: Heterogeneous hepatic echotexture consistent with chronic liver disease. Splenomegaly Mild to moderate ascites Mildly thickened gallbladder wall without evidence of gallstones. No evidence of hydronephrosis. Isidro Oliver MD Upper Extremity Ultrasound 09/06/16 0000 Signed Impressions: Service Date/Time: Tuesday, September 06, 2016 20:43 - CONCLUSION: No evidence of DVT. Isidro Oliver MD Chest CT 09/05/16 0000 Signed Impressions: Service Date/Time: Monday, September 05, 2016 15:37 - CONCLUSION: 1. Cardiomegaly with diffuse ground glass densities and consolidation likely pulmonary edema and/or pneumonia. 2. Small bilateral pleural effusions. 3. Prominent lymphadenopathy in the mediastinum. Cameron Archer MD Objective Remarks Gen.: Lying in bed, partial nonrebreather in place, satting 100%. Head: Normocephalic. Atraumatic. EENT: Pupils equal round and reactive to light. Nose without drainage. Airway intact. Cardiovascular: Regular rate and rhythm. Systolic murmur heard best in the aortic area Respiratory: Much improved aeration in lungs bilaterally Abdomen: Soft, nontender, nondistended. No peritoneal signs. Musculoskeletal: No gross deformities. No edema. Skin: No obvious rashes or erythema. Neuro: Sensory and motor grossly intact. Cranial nerves II through XII grossly intact. Psych: Smiles when awake, appropriately interacts with examiner (Rupali Eddy MD R1) A/P Assessment and Plan 71-year-old male who presented with a 5-day history of shortness of breath and nonproductive cough. ACS rule out positive for NSTEMI. Patient has a history of COPD and was admitted with sepsis with cardiology consultation for NSTEMI. Developed respiratory distress on 09/04 and was transferred to the ICU with critical care consult. Currently tolerating BiPAP and nonrebreather. Cardiology to perform left heart catheter when clinically better. Pulmonology on board. Nephrology consulted for PHILIPPE. Hematology consulted due to thrombocytopenia. Discharge Planning Pending clinical improvement (Rupali Eddy MD R1) Attending Attestation Patient seen and examined Case reviewed and discussed Agree with plan of care as discussed with me and documented in the resident note. (She Harris MD) Problem List: (1) Respiratory distress Status: Acute Plan: Improving. On partial nonrebreather in the ICU -On Bumex drip -Critical care managing -Solu-Medrol 40 mg every 12 hours -DuoNeb's every 6 hours (2) NSTEMI (non-ST elevated myocardial infarction) Status: Acute Plan: -Patient with elevated troponins to 1.[address] elevations in V1 V3. -Cardiology following -Left heart catheter when clinically able to tolerate procedure (3) Aortic stenosis Status: Acute Plan: -Cardiothoracic surgery consulted -Cardiology and cardiothoracic surgery to discuss plans going forward -Will need to optimize medical management for the infectious process prior to performing any procedures -Pulmonology consulted given high surgical risk- appreciate recommendations (4) Pneumonia Status: Acute Plan: -Sputum culture growing strep pneumo sensitive to vancomycin and Levaquin , intermediately sensitive to ceftriaxone -Antibiotics changed to Ceftarolin 300 mg IV every 12 on 09/07 (5) CHF due to valvular disease Status: Acute Plan: Echo performed on 09/02 showed EF of 5055 percent. Aortic valve with moderate to severe stenosis. -Coreg 3.125 mg by mouth every 12 hours -Bumex drip per nephrology -BiPAP or nonrebreather per critical care (6) PHILIPPE (acute kidney injury) Status: Resolved Plan: -Likely prerenal in origin -Improving, creatinine 1.52 today compared to 2.07 on 09/07 -Nephrology on board (7) Thrombocytopenia Status: Acute Plan: -Platelets down to 77 today compared to 83 on 09/07 -Hematology consulted -Suspect ITP versus DIC -Heparin subcutaneous discontinued -HIT, hepatitis, HIV panels pending -Abdominal ultrasound on 09/07 shows heterogeneous hepatic echo texture consistent with chronic liver disease, splenomegaly, mild to moderate ascites -Continue to monitor (8) Diabetes Status: Acute Plan: Patient's home regimen is NPH 25 units every morning and 50 units daily at bedtime -Require 24 units SSI in the last 24 hours -Continue Levemir 35 units in the a.m. and 30 units at night -SSI -Adjust insulin regimen as needed (9) COPD exacerbation Status: Acute Plan: Patient with known COPD and [id number] history of smoking Albuterol every 2 hours when necessary DuoNeb nebs every 4 hours scheduled Solu-Medrol 60 mg every 8 hours (10) Hyponatremia Status: Acute Plan: -Pseudohyponatremia vs SIADH vs some element of both -Serum osmolality elevated at 304 -Uric acid within normal limits -Will follow with daily BMPs -Strict I's and O's (11) Hypertension Status: Acute Plan: Continue Coreg. Hydralazine when necessary. Continue losartan Amlodipine discontinued currently (12) Anxiety and depression Status: Acute Plan: -Continue home medications as follows: -Trazodone 100 mg by mouth daily -Sertraline 100 mg by mouth daily (13) BPH (benign prostatic hyperplasia) Status: Acute Plan: -History of BPH -Patient states history of using Flomax but not on current list of medications -Will consider starting Flomax if patient has symptoms (14) Severe sepsis Status: Resolved Plan: Septic on admission On Ceftarolin IV as above Repeat blood cultures negative to date Abx History: -Vancomycin 1250mg IV Q12h with pharmacy consult and Zosyn 3.375mg IV Q6h (dc ) -Azithromycin 500 mg by mouth every 24 hours started on 09/01. Dc'd on 09/07 (15) FEN/DVT PPX/GI PPX Status: Acute Plan: Fluids: IV fluids discontinued Electrolytes: Will monitor and replace as needed Nutrition: Heart healthy diet DVT Prophylaxis: SCDs, heparin discontinued due to thrombocytopenia GI Prophylaxis: Protonix IV 40 mg daily (Rupali Eddy MD R1) Problem Qualifiers (1) Aortic stenosis: Qualified Code: I35.0 - Aortic valve stenosis, unspecified etiology (2) Pneumonia: Qualified Code: J18.9 - Pneumonia of both lungs due to infectious organism, unspecified part of lung (3) Diabetes: (4) Hypertension: Qualified Code: I10 - Essential hypertension Rupali Eddy MD R1 Sep 08, 2016 08:05 She Harris MD Sep 10, 2016 10:40
--- NOTE | 2016-09-08 08:13 | PD.CARD.PN ---
Subjective Subjective Remarks breathing improved (Bandar Yu) Objective Vital Signs / I&O Vital Signs Date Time Temp Pulse Resp B/P Pulse Ox O2 Delivery O2 Flow Rate FiO2 09/08/16 06:00 133 09/08/16 04:18 93 50 09/08/16 04:00 72 09/08/16 04:00 96 Bi-Pap 09/08/16 04:00 98.5 72 23 151/66 96 09/08/16 02:00 71 09/08/16 01:23 95 50 09/08/16 00:00 98.1 70 11 110/56 95 09/08/16 00:00 70 09/08/16 00:00 95 Bi-Pap 09/07/16 22:30 92 50 09/07/16 22:00 83 09/07/16 22:00 95 Bi-Pap 09/07/16 22:00 19 09/07/16 20:23 99 Partial Rebreather 15.00 09/07/16 20:00 97.9 78 11 161/70 100 09/07/16 20:00 100 Partial Non-Rebreather 09/07/16 20:00 78 09/07/16 18:00 79 09/07/16 16:00 95 Partial Non-Rebreather 09/07/16 16:00 77 09/07/16 16:00 97.4 77 13 148/67 100 09/07/16 14:00 76 09/07/16 12:26 97 Partial Rebreather 100 09/07/16 12:00 97.2 75 15 147/106 95 09/07/16 12:00 95 Partial Non-Rebreather 09/07/16 12:00 75 09/07/16 10:00 71 I/O 09/07/16 09/07/16 09/07/16 09/08/16 09/08/16 09/08/16 07:00 15:00 23:00 07:00 15:00 23:00 Intake Total 273 ml 990 ml 351 ml 249 ml Output Total 300 ml 1750 ml 3650 ml 3800 ml Balance -27 ml -760 ml -3299 ml -3551 ml Intake Oral 0 ml 480 ml 250 ml 90 ml IV Total 273 ml 510 ml 101 ml 159 ml Output Urine Total 300 ml 1750 ml 3650 ml 3800 ml # Bowel Movements 0 0 1 0 Physical Exam GENERAL: Well-nourished, well-developed patient in no apparent distress. NECK: No JVD. No carotid bruit. CARDIOVASCULAR: Regular rate and rhythm. S1/S2 no murmur, rub, or gallop. RESPIRATORY: No accessory muscle use. rales to auscultation. Breath sounds equal bilaterally. GASTROINTESTINAL: Abdomen soft, non-tender, nondistended. MUSCULOSKELETAL: Extremities without clubbing, cyanosis, or edema. Laboratory Laboratory Tests Test 09/07/16 09/07/16 09/08/16 11:11 12:05 02:07 Serum Osmolality 304 MOSM/KG Uric Acid 6.5 MG/DL Urine Color YELLOW Urine Turbidity HAZY Urine pH 6.0 Urine Specific [place] 1.017 Urine Protein 30 mg/dL Urine Glucose (UA) NEG mg/dL Urine Ketones NEG mg/dL Urine Occult Blood LARGE Urine Nitrite NEG Urine Bilirubin NEG Urine Urobilinogen LESS THAN 2.0 MG/DL Urine Leukocyte Esterase LARGE Urine RBC 108 /hpf Urine WBC 64 /hpf Urine Squamous Epithelial 4 /hpf Cells Urine Transitional Epithelial <1 /hpf Cells Urine Amorphous Sediment RARE Urine Bacteria OCC /hpf Urine Hyaline Casts 95 /lpf Urine Mucus FEW /lpf Microscopic Urinalysis Comment CATH-CULTURE IND Urine Osmolality 487 MOSM/KG White Blood Count 5.7 TH/MM3 Red Blood Count 3.91 MIL/MM3 Hemoglobin 10.5 GM/DL Hematocrit 32.4 % Mean Corpuscular Volume 82.8 FL Mean Corpuscular Hemoglobin 26.8 PG Mean Corpuscular Hemoglobin 32.3 % Concent Red Cell Distribution Width 16.1 % Platelet Count 77 TH/MM3 Mean Platelet Volume 9.2 FL Neutrophils (%) (Auto) 83.4 % Lymphocytes (%) (Auto) 8.0 % Monocytes (%) (Auto) 7.2 % Eosinophils (%) (Auto) 0.2 % Basophils (%) (Auto) 1.2 % Neutrophils # (Auto) 4.7 TH/MM3 Lymphocytes # (Auto) 0.5 TH/MM3 Monocytes # (Auto) 0.4 TH/MM3 Eosinophils # (Auto) 0.0 TH/MM3 Basophils # (Auto) 0.1 TH/MM3 CBC Comment AUTO DIFF Differential Comment AUTO DIFF CONFIRMED Platelet Estimate LOW Platelet Morphology Comment ENLARGED Haptoglobin 237 MG/DL Sodium Level 136 MEQ/L Potassium Level 4.0 MEQ/L Chloride Level 93 MEQ/L Carbon Dioxide Level 33.7 MEQ/L Anion Gap 9 MEQ/L Blood Urea Nitrogen 71 MG/DL Creatinine 1.52 MG/DL Estimat Glomerular Filtration 46 ML/MIN Rate Random Glucose 281 MG/DL Calcium Level 8.5 MG/DL Total Bilirubin 0.7 MG/DL Aspartate Amino Transf 57 U/L (AST/SGOT) Alanine Aminotransferase 100 U/L (ALT/SGPT) Alkaline Phosphatase 134 U/L Lactate Dehydrogenase 377 U/L Total Protein 6.2 GM/DL Albumin 3.2 GM/DL Blood Type O POSITIVE Direct Antiglobulin Test NEGATIVE (Shabbir) (Bandar Yu) Assessment and Plan Problem List: (1) NSTEMI (non-ST elevated myocardial infarction) (2) Aortic stenosis (3) Congestive heart failure (CHF) (4) Hypertension Assessment and Plan NSTEMI - no chest pain. LHC when breathing improves - moderate to severe mean gradient 20 mmHg and valve area 0.88 cm2 ARF - creatine improving after Bumex gtt HTN - labile, avoid CASEY-I due to hyperkalemia PNA - conitnue ABX and supplemental oxygen. Consider weaning oxygen (Bandar Yu) Assessment and Plan breathing is improving but still on mask continue bumex gtt. -7L I/O Cr improving need to wait for Cr and pulm to improve, then LHC (Troy Dudley MD) Problem Qualifiers (1) Aortic stenosis: Qualified Code: I35.0 - Aortic valve stenosis, unspecified etiology (2) Congestive heart failure (CHF): (3) Hypertension: Qualified Code: I10 - Essential hypertension Bandar Yu Sep 08, 2016 08:13 Troy Dudley MD Sep 08, 2016 08:30
--- NOTE | 2016-09-08 08:19 | HHI.CCPN ---
Subjective Remarks/Hospital Course The patient is a 71-year-old male with past medical history significant for COPD, aortic stenosis, hypertension and diabetes who presented to the emergency department with progressive shortness of breath and nonproductive cough for last 5 days. He was diagnosed and admitted to service on with [id number] [place], COPD exacerbation and probable pneumonia. He had a previous heart catheterization in 2014, was told at that time he needed to have aortic valve replacement. He was started on IV antibiotics with Rocephin and azithromycin and also was placed on IV steroids and DuoNeb breathing treatment for probable COPD exacerbation. All the cultures so far negative, also negative for influenza A and B, negative for Streptococcus and Legionella antigen. Cardiology was consulted, and echo showed moderate to severe aortic stenosis. Cardiothoracic surgery was also consulted and is following, plan for cardiac catheterization this Tuesday. A Halicat was called today as the patient was increasingly lethargic with increased dyspnea and hypoxia. He desaturated to the 70% when RN attempted to move him. Chest x-ray showed bilateral pulmonary edema worsening compared to admission. He was moved to the ICU and critical care medicine was consulted. I evaluated the patient in ICU. He is tachypneic on 100% nonrebreather. Examination revealed bilateral crackles. 60 mg of IV Lasix stat given and patient was ordered to be placed on BiPAP at 06/16. BNP was 658 SUBJECT 09/05/16: Patient did not tolerate BiPAP overnight. Currently remains on partial nonrebreather. Urine output more than 6 L in 24 hours. He developed atrial flutter with RVR, was placed on esmolol which I have changed to Cardizem. Chest x-ray shows interval improvement in my review 09/06/16: Remains on pNRB. sputum cx with strep pneumo. Urine out put diminishing. 1L bolus given with adequate response. Bilateral lung infiltrate. Discussed with Dr. Dudley. Will hold off cath until Reps failure/ALI improves and renal failure improves 2 Patient is on BIPAP 06/16 with FIO2 65%. Afebrile. 09/08 Patient is off BIPAP on Bumex drip 2mg/hr with UO 7.6L in 24 hrs. Afebrile feeling better. Renal function improving with Cr 1.52 from 2.07. Objective Vital Signs Date Time Temp Pulse Resp B/P Pulse Ox O2 Delivery O2 Flow Rate FiO2 09/08/16 06:00 133 09/08/16 04:18 93 50 09/08/16 04:00 Bi-Pap 09/08/16 04:00 98.5 23 151/66 09/07/16 20:23 15.00 Intake and Output 09/07/16 09/07/16 09/08/16 08:00 16:00 00:00 Intake Total 273 ml 990 ml 351 ml Output Total 300 ml 1750 ml 3650 ml Balance -27 ml -760 ml -3299 ml Result Diagram: 09/08/16 0207 09/08/16 0207 Other Results Laboratory Tests Test 09/07/16 09/07/16 09/08/16 11:11 12:05 02:07 Serum Osmolality 304 MOSM/KG Uric Acid 6.5 MG/DL Urine Color YELLOW Urine Turbidity HAZY Urine pH 6.0 Urine Specific [place] 1.017 Urine Protein 30 mg/dL Urine Glucose (UA) NEG mg/dL Urine Ketones NEG mg/dL Urine Occult Blood LARGE Urine Nitrite NEG Urine Bilirubin NEG Urine Urobilinogen LESS THAN 2.0 MG/DL Urine Leukocyte Esterase LARGE Urine RBC 108 /hpf Urine WBC 64 /hpf Urine Squamous Epithelial 4 /hpf Cells Urine Transitional Epithelial <1 /hpf Cells Urine Amorphous Sediment RARE Urine Bacteria OCC /hpf Urine Hyaline Casts 95 /lpf Urine Mucus FEW /lpf Microscopic Urinalysis Comment CATH-CULTURE IND Urine Osmolality 487 MOSM/KG White Blood Count 5.7 TH/MM3 Red Blood Count 3.91 MIL/MM3 Hemoglobin 10.5 GM/DL Hematocrit 32.4 % Mean Corpuscular Volume 82.8 FL Mean Corpuscular Hemoglobin 26.8 PG Mean Corpuscular Hemoglobin 32.3 % Concent Red Cell Distribution Width 16.1 % Platelet Count 77 TH/MM3 Mean Platelet Volume 9.2 FL Neutrophils (%) (Auto) 83.4 % Lymphocytes (%) (Auto) 8.0 % Monocytes (%) (Auto) 7.2 % Eosinophils (%) (Auto) 0.2 % Basophils (%) (Auto) 1.2 % Neutrophils # (Auto) 4.7 TH/MM3 Lymphocytes # (Auto) 0.5 TH/MM3 Monocytes # (Auto) 0.4 TH/MM3 Eosinophils # (Auto) 0.0 TH/MM3 Basophils # (Auto) 0.1 TH/MM3 CBC Comment AUTO DIFF Differential Comment AUTO DIFF CONFIRMED Platelet Estimate LOW Platelet Morphology Comment ENLARGED Haptoglobin 237 MG/DL Sodium Level 136 MEQ/L Potassium Level 4.0 MEQ/L Chloride Level 93 MEQ/L Carbon Dioxide Level 33.7 MEQ/L Anion Gap 9 MEQ/L Blood Urea Nitrogen 71 MG/DL Creatinine 1.52 MG/DL Estimat Glomerular Filtration 46 ML/MIN Rate Random Glucose 281 MG/DL Calcium Level 8.5 MG/DL Total Bilirubin 0.7 MG/DL Aspartate Amino Transf 57 U/L (AST/SGOT) Alanine Aminotransferase 100 U/L (ALT/SGPT) Alkaline Phosphatase 134 U/L Lactate Dehydrogenase 377 U/L Total Protein 6.2 GM/DL Albumin 3.2 GM/DL Blood Type O POSITIVE Direct Antiglobulin Test NEGATIVE (Shabbir) Imaging Last Impressions Chest X-Ray 09/07/16 0600 Signed Impressions: Service Date/Time: Wednesday, September 07, 2016 05:14 - CONCLUSION: 1. Stable to slight worsening of bilateral airspace disease over the last day. Timbo Quarles MD Abdomen Ultrasound 09/07/16 0000 Signed Impressions: Service Date/Time: Wednesday, September 07, 2016 16:45 - CONCLUSION: Heterogeneous hepatic echotexture consistent with chronic liver disease. Splenomegaly Mild to moderate ascites Mildly thickened gallbladder wall without evidence of gallstones. No evidence of hydronephrosis. Isidro Oliver MD Upper Extremity Ultrasound 09/06/16 0000 Signed Impressions: Service Date/Time: Tuesday, September 06, 2016 20:43 - CONCLUSION: No evidence of DVT. Isidro Oliver MD Chest CT 09/05/16 0000 Signed Impressions: Service Date/Time: Monday, September 05, 2016 15:37 - CONCLUSION: 1. Cardiomegaly with diffuse ground glass densities and consolidation likely pulmonary edema and/or pneumonia. 2. Small bilateral pleural effusions. 3. Prominent lymphadenopathy in the mediastinum. Cameron Archer MD Objective Remarks Gen: 71-year-old male lying in ICU bed on BIPAP Head: Normocephalic. Atraumatic. EENT: Pupils equal round and reactive to light. Cardiovascular: S1-S2 normal. Systolic murmur heard in the aortic area Respiratory: Bilateral rhonchi and bibasilar crackles Abdomen: Soft, nontender, nondistended. No peritoneal signs. Musculoskeletal: No gross deformities. No edema. Skin: No obvious rashes or erythema. Neuro: Alert awake oriented 3. No focal deficits A/P Assessment and Plan NEURO: -Minimize sedation, as needed morphine for pain, anxiety RESP: Acute hypoxemic respiratory failure requiring BiPAP ARDS Pneumococcal pneumonia COPD exacerbation -Continue with oxygen keep sat >92% -BiPAP 12/7 PRN for resp distress, -Decrease Solu-Medrol 40mg Q12 and DuoNeb breathing treatments -EzPAP, Acapella every 6 hours CV: Severe aortic stenosis CHF NSTEMI -Monitor HR and BP keep MAP>65mmHg -Continue aspirin, Coreg, and pravastatin. -Cardiothoracic surgery and cardiology Dr. Dudley is following -[facility] with resp status and renal function improves. GI: -Elevated LFT's -On PO diet -Protonix for GI prophylaxis -Monitor LFT's, US abdomen: Heterogeneous hepatic echotexture consistent with chronic liver disease. Splenomegaly Mild to moderate ascites Mildly thickened gallbladder wall without evidence of gallstones. No evidence of hydronephrosis. : Acute kidney injury..improving Hyponatremia..resolving -Monitor renal function, I/O's, avoid nephrotoxins. -Renal function improving with Cr 1.52 from 2.07 and UO: 7.6L in 24 hrs -On Bumex drip 2mghr per renal- Dr. Roa. Renal US: No hydronephrosis ID: Sepsis Pneumococcal pneumonia -Continue abx per ID (Teflaro).Monitor for signs of infections ( Fever, WBC) -Sputum culture positive for strep pneumo. Influenza negative HEME: -Monitor CBC, CMP, coags. Follow up on Hep PLT ab -Heme is following ENDO: Type 2 diabetes Hypothyroidism -Sliding-scale insulin. Continue Levemir -Continue Synthroid 50 mcg daily. TSH: 0.373 PROPH: -Bilateral lower extremity SCDs. Protonix for GI prophylaxis. Heparin SQ on hold for thrombocytopenia LINES: -Utilize peripheral IVs, Level 3 Gerry Vivas MD Sep 08, 2016 08:19
[2016-09-08] MEDS: ASPIRIN 325 MG TAB PO SCH (09:00)
--- NOTE | 2016-09-08 09:08 | RADRPT ---
EXAM DATE/TIME: 09/08/2016 08:19 [place] COMPARISON: CHEST SINGLE AP, September 07, 2016, 5:14. INDICATIONS : Infiltrate, short of breath. MEDICAL HISTORY : None. SURGICAL HISTORY : None. ENCOUNTER: Initial ACUITY: 2 weeks PAIN SCORE: 0/10 LOCATION: Bilateral chest FINDINGS: The study is abnormal. The heart remains enlarged. Patchy air space disease is seen in both lungs w ithout significant pleural effusion. There is no pneumothorax. CONCLUSION: The chest is abnormal with patchy air space disease; stable in the interval. Ed Rogel MD FACR on September 08, 2016 at 8:41 Board Certified Radiologist. This report was verified electronically.
[2016-09-08] MEDS: FERROUS SULFATE 325 MG (65 MG ELEMENTAL IRON) TAB PO SCH ×2 (09:57→21:09)
[2016-09-08] MEDS: DOCUSATE SODIUM 50 MG/SENNA 8.6 MG TAB PO SCH (09:58)
[2016-09-08] MEDS: PREGABALIN 75 MG CAP PO SCH ×2 (09:58→21:09)
[2016-09-08] MEDS: CARVEDILOL 6.25 MG TAB PO SCH ×2 (09:59→21:10)
[2016-09-08] MEDS: PRIMIDONE 50 MG TAB PO SCH ×3 (09:59→17:54)
[2016-09-08] MEDS: busPIRone HCL 10 MG TAB PO SCH ×2 (09:59→21:10)
[2016-09-08] MEDS: SERTRALINE HCL 100 MG TAB PO SCH (09:59)
[2016-09-08] MEDS: PRAVASTATIN SOD 40 MG TAB PO SCH (09:59)
--- NOTE | 2016-09-08 10:31 | PD.ONC.PN ---
Subjective Subjective Remarks Afebrile overnight. No overnight events. Patient resting comfortably. Per nurse he had some oozing from previous SQ injection at abdominal site this AM. Objective Data Date Time Temp Pulse Resp B/P Pulse Ox O2 Delivery O2 Flow Rate FiO2 09/08/16 06:00 133 09/08/16 04:18 93 50 09/08/16 04:00 72 09/08/16 04:00 96 Bi-Pap 09/08/16 04:00 98.5 72 23 151/66 96 09/08/16 02:00 71 09/08/16 01:23 95 50 09/08/16 00:00 98.1 70 11 110/56 95 09/08/16 00:00 70 09/08/16 00:00 95 Bi-Pap 09/07/16 22:30 92 50 09/07/16 22:00 83 09/07/16 22:00 95 Bi-Pap 09/07/16 22:00 19 09/07/16 20:23 99 Partial Rebreather 15.00 09/07/16 20:00 97.9 78 11 161/70 100 09/07/16 20:00 100 Partial Non-Rebreather 09/07/16 20:00 78 09/07/16 18:00 79 09/07/16 16:00 95 Partial Non-Rebreather 09/07/16 16:00 77 09/07/16 16:00 97.4 77 13 148/67 100 09/07/16 14:00 76 09/07/16 12:26 97 Partial Rebreather 100 09/07/16 12:00 97.2 75 15 147/106 95 09/07/16 12:00 95 Partial Non-Rebreather 09/07/16 12:00 75 09/08/16 09/08/16 09/08/16 07:00 15:00 23:00 Intake Total 249 ml Output Total 3800 ml Balance -3551 ml Result Diagram: 09/08/1620609/08/16206 Laboratory Results Laboratory Tests Test 09/07/16 09/07/16 09/08/16 11:11 12:05 02:07 Serum Osmolality 304 MOSM/KG Uric Acid 6.5 MG/DL Urine Color YELLOW Urine Turbidity HAZY Urine pH 6.0 Urine Specific [place] 1.017 Urine Protein 30 mg/dL Urine Glucose (UA) NEG mg/dL Urine Ketones NEG mg/dL Urine Occult Blood LARGE Urine Nitrite NEG Urine Bilirubin NEG Urine Urobilinogen LESS THAN 2.0 MG/DL Urine Leukocyte Esterase LARGE Urine RBC 108 /hpf Urine WBC 64 /hpf Urine Squamous Epithelial 4 /hpf Cells Urine Transitional Epithelial <1 /hpf Cells Urine Amorphous Sediment RARE Urine Bacteria OCC /hpf Urine Hyaline Casts 95 /lpf Urine Mucus FEW /lpf Microscopic Urinalysis Comment CATH-CULTURE IND Urine Osmolality 487 MOSM/KG White Blood Count 5.7 TH/MM3 Red Blood Count 3.91 MIL/MM3 Hemoglobin 10.5 GM/DL Hematocrit 32.4 % Mean Corpuscular Volume 82.8 FL Mean Corpuscular Hemoglobin 26.8 PG Mean Corpuscular Hemoglobin 32.3 % Concent Red Cell Distribution Width 16.1 % Platelet Count 77 TH/MM3 Mean Platelet Volume 9.2 FL Neutrophils (%) (Auto) 83.4 % Lymphocytes (%) (Auto) 8.0 % Monocytes (%) (Auto) 7.2 % Eosinophils (%) (Auto) 0.2 % Basophils (%) (Auto) 1.2 % Neutrophils # (Auto) 4.7 TH/MM3 Lymphocytes # (Auto) 0.5 TH/MM3 Monocytes # (Auto) 0.4 TH/MM3 Eosinophils # (Auto) 0.0 TH/MM3 Basophils # (Auto) 0.1 TH/MM3 CBC Comment AUTO DIFF Differential Comment AUTO DIFF CONFIRMED Platelet Estimate LOW Platelet Morphology Comment ENLARGED Haptoglobin 237 MG/DL Sodium Level 136 MEQ/L Potassium Level 4.0 MEQ/L Chloride Level 93 MEQ/L Carbon Dioxide Level 33.7 MEQ/L Anion Gap 9 MEQ/L Blood Urea Nitrogen 71 MG/DL Creatinine 1.52 MG/DL Estimat Glomerular Filtration 46 ML/MIN Rate Random Glucose 281 MG/DL Calcium Level 8.5 MG/DL Total Bilirubin 0.7 MG/DL Aspartate Amino Transf 57 U/L (AST/SGOT) Alanine Aminotransferase 100 U/L (ALT/SGPT) Alkaline Phosphatase 134 U/L Lactate Dehydrogenase 377 U/L Total Protein 6.2 GM/DL Albumin 3.2 GM/DL Blood Type O POSITIVE Direct Antiglobulin Test NEGATIVE (Shabbir) Culture Results Microbiology Date/Time Procedure Status Source Growth 09/07/16 12:05 Urine Culture Received Urine Catheterized Urine Pending Administered Medications Medications (Trade) Dose Ordered Sig/Dev Route PRN Reason Start Time Stop Time Status Last Admin Dose Admin IV Flush (NS Flush) 2 ml UNSCH PRN IVF FLUSH AFTER USING IV ACCESS 08/31/16 11:15 09/06/16 07:45 Buspirone HCl (Buspar) 10 mg BID PO 08/31/16 21:00 09/08/16 09:59 Levothyroxine Sodium (Synthroid) 50 mcg DAILY@06 PO 09/01/16 06:00 09/08/16 05:48 Pravastatin Sodium (Pravachol) 40 mg DAILY PO 09/01/16 09:00 09/08/16 09:59 Pregabalin (Lyrica) 150 mg BID PO 08/31/16 21:00 09/08/16 09:58 Primidone (Mysoline) 100 mg TID PO 08/31/16 18:00 09/08/16 09:59 Sertraline HCl (Zoloft) 100 mg DAILY PO 09/01/16 09:00 09/08/16 09:59 Trazodone HCl (Desyrel) 100 mg HS PO 08/31/16 21:00 09/07/16 21:00 Dextrose (D50w (Vial) Inj) 25 ml UNSCH PRN IV PUSH HYPOGLYCEMIA-SEE COMMENTS 08/31/16 14:00 09/04/16 11:47 Aspirin (Aspirin) 325 mg DAILY PO 09/01/16 09:00 09/07/16 09:17 Heparin Sodium (Porcine) (Heparin Inj) 5,000 units Q8HR SQ 09/01/16 14:00 Hold 09/06/16 13:27 Alprazolam (Xanax) 0.5 mg Q12HR PRN PO ANXIETY 09/01/16 14:45 09/07/16 11:42 Miscellaneous Information Patient in critical care unit? Ass... [id number] XX 09/04/16 20:00 09/04/16 20:00 Chlorhexidine Gluconate (Chlorhexidine 2% Cloth) 3 pack DAILY@04 TOP 09/05/16 04:00 09/09/16 04:01 09/08/16 00:56 Morphine Sulfate (Morphine Inj) 2 mg Q4H PRN IV PAIN 1 TO 10 09/05/16 11:30 09/06/16 16:06 Ferrous Sulfate (Ferrous Sulfate) 325 mg BID PO 09/06/16 09:00 09/08/16 09:57 Carvedilol (Coreg) 6.25 mg Q12HR PO 09/06/16 09:00 09/08/16 09:59 Senna/Docusate Sodium (Shantelle-Colace) 2 tab DAILY PO 09/06/16 17:45 09/08/16 09:58 Lorazepam (Ativan Inj) 0.25 mg Q6H PRN IV PUSH ANXIETY 09/06/16 17:45 09/07/16 14:47 Insulin Aspart 1 1 Q6H SQ 09/07/16 12:00 09/08/16 05:52 Ceftaroline Fosamil 300 mg/ Sodium Chloride 100 ml @ 100 mls/hr Q12H IV 09/07/16 12:00 09/08/16 00:47 Bumetanide (Bumex Inj) 100 ml @ 8 mls/hr CONTINUOUS IV 09/07/16 13:15 09/07/16 22:58 Insulin Detemir (Levemir Inj) 30 units HS SQ 09/07/16 21:00 09/07/16 21:00 Methylprednisolone Sodium Succinate (SoluMEDROL INJ) 40 mg Q12H IV 09/08/16 09:00 09/08/16 09:57 Objective Remarks GENERAL: Chronically ill appearing elderly male, lying in bed family at bedside. SKIN: Warm and dry. HEAD: Normocephalic. EYES: No injection or drainage. NECK: Supple, trachea midline. CARDIOVASCULAR: +S1/S2, tachy RESPIRATORY: anterior gallardo with occasional rhonchi. On NRB mask GASTROINTESTINAL: Abdomen soft, non-tender, nondistended. EXTREMITIES: No cyanosis NEUROLOGICAL: awake and alert, but fatigued. normal speech. Assessment/Plan Problem List: (1) Thrombocytopenia Status: Acute Plan: --multifactorial d/t sepsis +/- medication effect (i.e. 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 Assessment 71y/o male admitted with NSTEMI, COPD exacerbation, and pneumonia. Hematology consulted for acute thrombocytopenia. history of COPD, hypertension, diabetes aortic stenosis Plan 1. obtain DIC panel 2. await stool hemoccult 3. monitor CBC Attending Statement The exam, history, and the medical decision-making described in the above note were completed with the assistance of the mid-level provider. I reviewed and agree with the findings presented. I attest that I had a [id number] encounter with the patient on the same day, and personally performed and documented my assessment and findings in the medical record. 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 If platelets drop further, then will start Argatroban GTT. Await TIGIST results Patient has chronic hx of thrombocytopenia. Avoid heparin and heparin products Problem Qualifiers (1) Aortic stenosis: Qualified Code: I35.0 - Aortic valve stenosis, unspecified etiology Iman Chin Sep 08, 2016 10:31 Cesar Vieyra MD Sep 08, 2016 23:56
[2016-09-08 12:31] LABS: HEPATITIS B SURFACE ANTIBODY 1.2 mIU/mL
--- NOTE | 2016-09-08 12:38 | HHI.NPPN ---
Subjective Complaints: Confused, Shortness of Breath General Problems: Edema Renal Failure: Chronic, Acute Interval History He is awake, on non rebreather. Excellent response to diuresis. Renal function improved. (Prachi Palencia) Review of Systems General Constitutional: Fatigue (Prachi Palencia) Respiratory Lungs: SOB (Prachi Palencia) Cardiovascular Cardiac: Edema (Prachi Palencia) Objective Data Data 09/07/16 09/08/16 19:00 07:00 Intake Total 990 ml 600 ml Output Total 1750 ml 7450 ml Balance -760 ml -6850 ml Intake Oral 480 ml 340 ml IV Total 510 ml 260 ml Output Urine Total 1750 ml 7450 ml # Bowel Movements 0 1 Vital Signs Date Time Temp Pulse Resp B/P Pulse Ox O2 Delivery O2 Flow Rate FiO2 09/08/16 10:58 18 09/08/16 10:00 79 09/08/16 08:00 97.0 74 24 155/67 98 09/08/16 08:00 98 Non-Rebreather 09/08/16 08:00 74 09/08/16 06:00 133 09/08/16 04:18 93 50 09/08/16 04:00 72 09/08/16 04:00 96 Bi-Pap 09/08/16 04:00 98.5 72 23 151/66 96 09/08/16 02:00 71 09/08/16 01:23 95 50 09/08/16 00:00 98.1 70 11 110/56 95 09/08/16 00:00 70 09/08/16 00:00 95 Bi-Pap 09/07/16 22:30 92 50 09/07/16 22:00 83 09/07/16 22:00 95 Bi-Pap 09/07/16 20:23 99 Partial Rebreather 15.00 09/07/16 20:00 97.9 78 11 161/70 100 09/07/16 20:00 100 Partial Non-Rebreather 09/07/16 20:00 78 09/07/16 18:00 79 09/07/16 16:00 95 Partial Non-Rebreather 09/07/16 16:00 77 09/07/16 16:00 97.4 77 13 148/67 100 09/07/16 14:00 76 (Prachi Palencia) -: 09/08/16 0207 09/08/16 0207 Microbiology 09/08/16 Stool Occult Blood (CASSIDY), Received Pending Imaging Last 72 hours Impressions Chest X-Ray 09/07/16 0600 Signed Impressions: Service Date/Time: Wednesday, September 07, 2016 05:14 - CONCLUSION: 1. Stable to slight worsening of bilateral airspace disease over the last day. Timbo Quarles MD Abdomen Ultrasound 09/07/16 0000 Signed Impressions: Service Date/Time: Wednesday, September 07, 2016 16:45 - CONCLUSION: Heterogeneous hepatic echotexture consistent with chronic liver disease. Splenomegaly Mild to moderate ascites Mildly thickened gallbladder wall without evidence of gallstones. No evidence of hydronephrosis. Isidro Oliver MD Chest X-Ray 09/06/16 0600 Signed Impressions: Service Date/Time: Tuesday, September 06, 2016 04:13 - CONCLUSION: 1. Bilateral airspace disease similar to September 05. Timbo Quarles MD Upper Extremity Ultrasound 09/06/16 0000 Signed Impressions: Service Date/Time: Tuesday, September 06, 2016 20:43 - CONCLUSION: No evidence of DVT. Isidro Oliver MD Tubes & Lines: [place] Drip Comment bumex (Prachi Palencia) Physical Exam General Appearance: Well Developed, Well Nourished, No Acute Distress Appearance Remarks sleepy (Prachi Palencia BSean SHAHIDP) Throat Throat Exam: Oral Mucosa [place] & Moist (Prachi Palencia BSean SHAHIDP) Pulmonary Resp Exam: Breath Sounds Equal, Crackles, Decreased Bases (Prachi Palencia BSean SHAHIDP) Cardiology CV Exam: Regular, Good Perfusion (Prachi Palencia BSean SHAHIDP) Gastrointestinal/Abdomen GI Exam: Soft, Non-Tender, Bowel Sounds Present (Prachi Palencia BSean DAUGHERTY) Musculoskeletal MS Exam: Joints Intact, Normal Gait, Normal Tone (Prachi Palencia BSean SHAHIDP) Integumentary Skin Exam: Clear, Warm, Dry, Intact (Prachi Palencia BSean SHAHIDP) Extremeties Extremities Exam: Pedal Pulses Palpable, Moderate Edema (SlimePrachi kent) Neurologic Neuro Exam: Awake, Moving All Extremities (Prachi Palencia) Psychiatric Psych Exam: Appropriate Responses (Prachi Palnecia) Assessment/Plan Discussed Condition With: Patient, Relative Problem List: (1) PHILIPPE (acute kidney injury) Plan: Likely ATN, due to hypoperfusion injury (sepsis, hypotension, A fib RVR) renal function is better fluid overload is improving, he lost 6 kg overnight, over 9 L UOP renal US negative continue Bumex, reduce rate to 0.5 mg/hr Avoid nephrotoxic agents. avoid IVF renal panel in am (2) Congestive heart failure (CHF) Plan: improving, monitor fluid volume status diureses as above (3) Diabetes Plan: continue insulin therapy monitor glucose, goal 140-180 mg/dL (4) Hypertension Plan: not on pressors monitor BP, medicate per admitting team (5) Severe sepsis Plan: from strep pneumonia ID following, on Teflaro (6) Aortic stenosis Plan: CT following plan for heart cath when clinically improved (Prachi Palencia) Plan patient was seen and examined. Good diuresis. Change Bumex to 0.5 mg /hour. Renal function is better. (Gentry Roa MD) Problem Qualifiers (1) Congestive heart failure (CHF): (2) Diabetes: (3) Hypertension: Qualified Code: I10 - Essential hypertension (4) Aortic stenosis: Qualified Code: I35.0 - Aortic valve stenosis, unspecified etiology Prachi Palencia Sep 08, 2016 12:38 Gentry Roa MD Sep 09, 2016 10:44
[2016-09-08] MEDS: ALPRAZolam 0.5 MG TAB PO PRN (12:58)
[2016-09-08 13:32] LABS: APTT (PATIENT) 29.4 SEC (24.3-30.1); INTERNATIONAL NORMALIZED RATIO 1.3 RATIO; PROTHROMBIN TIME - PATIENT 14.2 SEC (9.8-11.6)
[2016-09-08 14:45] LABS: HEPARIN AB OD 0.633 O.D. (0.000-0.300)
[2016-09-08 14:49] LABS: HEPARIN INDUCED PLATELET AB POSITIVE (NEGATIVE)
[2016-09-08] MEDS: LORazepam 2 MG/ML VIAL IV PUSH PRN ×2 (17:55→23:17)
--- NOTE | 2016-09-08 17:55 | HHI.IDPN ---
Subjective Subjective Remarks Mr. Gudino is a 71-year-old male with PMHx significant for COPD, aortic stenosis, hypertension and diabetes who presented to the emergency department with progressive shortness of breath and nonproductive cough for last 5 days. ID following for resistant Strep pneumo pneumonia. Also pulm edema from severe aortic stenosis. Antibiotics Teflaro IV Lines Line sites with no e/o infection Past Medical History reviewed Allergies: Coded Allergies: Niacin (Unverified Allergy, Severe, GENERALIZED BURNING AND ITCHING, ) Objective . Vital Signs Date Time Temp Pulse Resp B/P Pulse Ox O2 Delivery O2 Flow Rate FiO2 09/08/16 16:00 75 09/08/16 15:55 94 10.00 09/08/16 14:00 74 09/08/16 12:00 94 Non-Rebreather 09/08/16 12:00 97.6 83 26 142/62 94 09/08/16 12:00 83 09/08/16 10:58 18 09/08/16 10:00 79 09/08/16 08:00 97.0 74 24 155/67 98 09/08/16 08:00 98 Non-Rebreather 09/08/16 08:00 74 09/08/16 06:00 133 09/08/16 04:18 93 50 09/08/16 04:00 72 09/08/16 04:00 96 Bi-Pap 09/08/16 04:00 98.5 72 23 151/66 96 09/08/16 02:00 71 09/08/16 01:23 95 50 09/08/16 00:00 98.1 70 11 110/56 95 09/08/16 00:00 70 09/08/16 00:00 95 Bi-Pap 09/07/16 22:30 92 50 09/07/16 22:00 83 09/07/16 22:00 95 Bi-Pap 09/07/16 20:23 99 Partial Rebreather 15.00 09/07/16 20:00 97.9 78 11 161/70 100 09/07/16 20:00 100 Partial Non-Rebreather 09/07/16 20:00 78 09/07/16 18:00 79 09/07/16 09/07/16 09/08/16 15:00 23:00 07:00 Intake Total 990 ml 351 ml 249 ml Output Total 1750 ml 3650 ml 3800 ml Balance -760 ml -3299 ml -3551 ml Intake Oral 480 ml 250 ml 90 ml IV Total 510 ml 101 ml 159 ml Output Urine Total 1750 ml 3650 ml 3800 ml # Bowel Movements 0 1 0 . Laboratory Tests Test 09/07/16 09/08/16 04:25 02:07 White Blood Count 7.3 TH/MM3 5.7 TH/MM3 Red Blood Count 3.40 MIL/MM3 3.91 MIL/MM3 Hemoglobin 9.3 GM/DL 10.5 GM/DL Hematocrit 28.0 % 32.4 % Mean Corpuscular Volume 82.4 FL 82.8 FL Mean Corpuscular Hemoglobin 27.2 PG 26.8 PG Mean Corpuscular Hemoglobin 33.0 % 32.3 % Concent Red Cell Distribution Width 16.0 % 16.1 % Platelet Count 83 TH/MM3 77 TH/MM3 Mean Platelet Volume 8.6 FL 9.2 FL Neutrophils (%) (Auto) 81.1 % 83.4 % Lymphocytes (%) (Auto) 8.8 % 8.0 % Monocytes (%) (Auto) 10.0 % 7.2 % Eosinophils (%) (Auto) 0.1 % 0.2 % Basophils (%) (Auto) 0.0 % 1.2 % Neutrophils # (Auto) 5.9 TH/MM3 4.7 TH/MM3 Lymphocytes # (Auto) 0.6 TH/MM3 0.5 TH/MM3 Monocytes # (Auto) 0.7 TH/MM3 0.4 TH/MM3 Eosinophils # (Auto) 0.0 TH/MM3 0.0 TH/MM3 Basophils # (Auto) 0.0 TH/MM3 0.1 TH/MM3 CBC Comment AUTO DIFF AUTO DIFF Differential Comment AUTO DIFF AUTO DIFF CONFIRMED CONFIRMED Platelet Estimate LOW LOW Platelet Morphology Comment NORMAL ENLARGED Keratocytes OCC Haptoglobin 237 MG/DL Laboratory Tests Test 09/07/16 09/07/16 09/08/16 04:25 11:11 02:07 Sodium Level 128 MEQ/L 136 MEQ/L Potassium Level 4.5 MEQ/L 4.0 MEQ/L Chloride Level 90 MEQ/L 93 MEQ/L Carbon Dioxide Level 27.7 MEQ/L 33.7 MEQ/L Anion Gap 10 MEQ/L 9 MEQ/L Blood Urea Nitrogen 72 MG/DL 71 MG/DL Creatinine 2.07 MG/DL 1.52 MG/DL Estimat Glomerular Filtration 32 ML/MIN 46 ML/MIN Rate Random Glucose 201 MG/DL 281 MG/DL Calcium Level 8.0 MG/DL 8.5 MG/DL Magnesium Level 2.9 MG/DL Total Bilirubin 0.7 MG/DL 0.7 MG/DL Aspartate Amino Transf 95 U/L 57 U/L (AST/SGOT) Alanine Aminotransferase 106 U/L 100 U/L (ALT/SGPT) Alkaline Phosphatase 115 U/L 134 U/L B-Type Natriuretic Peptide 1051 PG/ML Total Protein 6.1 GM/DL 6.2 GM/DL Albumin 3.3 GM/DL 3.2 GM/DL Thyroid Stimulating Hormone 0.373 uIU/ML 3rd Gen Serum Osmolality 304 MOSM/KG Uric Acid 6.5 MG/DL Lactate Dehydrogenase 377 U/L Microbiology Date/Time Procedure Status Source Growth 09/07/16 12:05 Urine Culture - Preliminary Resulted Urine Catheterized Urine NO GROWTH IN 24 HOURS. 09/08/16 11:40 Stool Occult Blood (CASSIDY) - Final Complete Stool Stool HEMOCCULT NEGATIVE Imaging Last Impressions Chest X-Ray 09/08/16 0000 Signed Impressions: Service Date/Time: Thursday, September 08, 2016 08:19 - CONCLUSION: The chest is abnormal with patchy air space disease; stable in the interval. Ed Rogel MD FACR Abdomen Ultrasound 09/07/16 0000 Signed Impressions: Service Date/Time: Wednesday, September 07, 2016 16:45 - CONCLUSION: Heterogeneous hepatic echotexture consistent with chronic liver disease. Splenomegaly Mild to moderate ascites Mildly thickened gallbladder wall without evidence of gallstones. No evidence of hydronephrosis. Isidro Oliver MD Upper Extremity Ultrasound 09/06/16 0000 Signed Impressions: Service Date/Time: Tuesday, September 06, 2016 20:43 - CONCLUSION: No evidence of DVT. Isidro Oliver MD Chest CT 09/05/16 0000 Signed Impressions: Service Date/Time: Monday, September 05, 2016 15:37 - CONCLUSION: 1. Cardiomegaly with diffuse ground glass densities and consolidation likely pulmonary edema and/or pneumonia. 2. Small bilateral pleural effusions. 3. Prominent lymphadenopathy in the mediastinum. Cameron Archer MD Physical Exam GENERAL: This is an obese, well-developed patient, in no apparent distress. SKIN: No rashes, ecchymoses or lesions. Cool and dry. HEAD: Atraumatic. Normocephalic. No temporal or scalp tenderness. EYES: Pupils equal round and reactive. Extraocular motions intact. No scleral icterus. No injection or drainage. ENT: Nose without bleeding, purulent drainage or septal hematoma. Throat without erythema, tonsillar hypertrophy or exudate. Uvula midline. Airway patent. NECK: Trachea midline. Supple, nontender, no meningeal signs. CARDIOVASCULAR: HS audible RESPIRATORY: Coarse bilateral breath sounds. Decreased air entry bilaterally. GASTROINTESTINAL: Abdomen soft, non-tender, Pendulous. MUSCULOSKELETAL: Extremities without clubbing, cyanosis, or edema. No joint tenderness, effusion, or edema noted. No calf tenderness. Negative Homans sign bilaterally. NEUROLOGICAL: Awake and alert. Grossly non focal. Psych: cooperative IV line sites with no e.o infection. Assessment & Plan Remarks Sepsis Resistant Strep Pneumonia. Possible larger component of pulm edema at present time. Acute resp failure on BiPAP Acute renal failure: sepsis, prerenal Acute transaminitis: sepsis Acute COPD exacerbation Severe Aortic Stenosis with Pulm edema Recs Continue Teflaro IV (renal dose adjusted d.w Pharmacist in ICU) (ASP: PCN and Ceph resistant Strep Pneumo Pneumonia) d.w Micro: susceptibility on Sputum Strep resistant to PCN and Cephalosporins. Check procalcitonin (may have to trend it to assess presence and clearance of infection) Follow cultures Follow clinically. Cesia Callaway RN d/w patient and in room. Avoid Nephrotoxins CXR reviewed by me. Follow LFTs, Cr and CBC. Saba Henderson MD Sep 08, 2016 17:55
--- NOTE | 2016-09-08 19:25 | HHI.PR ---
Subjective Remarks 71 YOWM with Resp insuf, COPD,Lung infilt On PRB No fever has coughing spells, started on Thickened liq by [employer] maintains good sat on PRB Bumex dose decresed at BS Objective Vital Signs Vital Signs Date Time Temp Pulse Resp B/P Pulse Ox O2 Delivery O2 Flow Rate FiO2 09/08/16 19:22 93 Partial Rebreather 12.00 09/08/16 18:00 78 09/08/16 16:00 98.0 78 18 149/60 93 09/08/16 16:00 75 09/08/16 16:00 94 Non-Rebreather 09/08/16 15:55 94 10.00 09/08/16 14:00 74 09/08/16 12:00 94 Non-Rebreather 09/08/16 12:00 97.6 83 26 142/62 94 09/08/16 12:00 83 09/08/16 10:58 18 09/08/16 10:00 79 09/08/16 08:00 97.0 74 24 155/67 98 09/08/16 08:00 98 Non-Rebreather 09/08/16 08:00 74 09/08/16 06:00 133 09/08/16 04:18 93 50 09/08/16 04:00 72 09/08/16 04:00 96 Bi-Pap 09/08/16 04:00 98.5 72 23 151/66 96 09/08/16 02:00 71 09/08/16 01:23 95 50 09/08/16 00:00 98.1 70 11 110/56 95 09/08/16 00:00 70 09/08/16 00:00 95 Bi-Pap 09/07/16 22:30 92 50 09/07/16 22:00 83 09/07/16 22:00 95 Bi-Pap 09/07/16 20:23 99 Partial Rebreather 15.00 09/07/16 20:00 97.9 78 11 161/70 100 09/07/16 20:00 100 Partial Non-Rebreather 09/07/16 20:00 78 I/O 09/07/16 09/07/16 09/07/16 09/08/16 09/08/16 09/08/16 07:00 15:00 23:00 07:00 15:00 23:00 Intake Total 273 ml 990 ml 351 ml 249 ml 1128 ml Output Total 300 ml 1750 ml 3650 ml 3800 ml 3750 ml Balance -27 ml -760 ml -3299 ml -3551 ml -2622 ml Intake Oral 0 ml 480 ml 250 ml 90 ml 1020 ml IV Total 273 ml 510 ml 101 ml 159 ml 108 ml Output Urine Total 300 ml 1750 ml 3650 ml 3800 ml 3750 ml # Bowel Movements 0 0 1 0 2 Result Diagram: 09/08/1620609/08/16206 Objective Remarks GENERAL: Obese WM, mild sob SKIN: Warm and dry. HEAD: Normocephalic. EYES: No scleral icterus. No injection or drainage. NECK: Supple, trachea midline. No JVD or lymphadenopathy. CARDIOVASCULAR: Regular rate and rhythm without murmurs, gallops, or rubs. RESPIRATORY: Breath sounds equal bilaterally. No accessory muscle use. GASTROINTESTINAL: Abdomen soft, non-tender, nondistended. MUSCULOSKELETAL: No cyanosis, or edema. BACK: Nontender without obvious deformity. No CVA tenderness. A/P Assessment and Plan Resp insuff COPD Lung infilt DM Ch. Pain PLAN: Cont Abx IV Solumedrol Supplement 02 with PRB and wean 02 Aerosol nebs Monitor BS Bumex drip, Monitor lytes BIPAP prn Kai Escobedo MD Sep 08, 2016 19:25
[2016-09-08] MEDS: traZODone HCL 100 MG TAB PO SCH (21:09)
[2016-09-08] MEDS: BUMETANIDE INJ 100 ML IV SCH (23:03)
[2016-09-09] VITALS (19 sets, daily range): BP systolic 92–190; BP diastolic 59–107; PULSE 65–136; RESP 19–33; TEMP 97.4–98.8; O2SAT 90–98
[2016-09-09] MEDS ORDERED: hydrALAZINE HCL 20 MG/ML VIAL IV PRN (03:15)
[2016-09-09] MEDS: RESP: ALBUTEROL 2.5 MG/IPRATROPIUM 0.5 MG NEB (SCH) NEB ×2 (03:44→09:06)
[2016-09-09] MEDS: CHLORHEXIDINE GLUCONATE 2 % 1 PACK (2 CLOTHS)(taper/protocol) TOP SCH (04:00)
[2016-09-09 04:33] LABS: AUTOMATED NEUTROPHIL # 7.4 TH/MM3 (1.8-7.7); BASOPHIL % 0.2 % (0.0-2.0); EOSINOPHIL % 0.5 % (0.0-4.0); HEMATOCRIT 38.3 % (39.0-51.0); LYMPH % 7.8 % (9.0-44.0); LYMPHOCYTE # 0.7 TH/MM3 (1.0-4.8); MEAN CELL VOLUME 81.4 FL (80.0-100.0); MEAN CORPUSCULAR HEMOGLOBIN 27.3 PG (27.0-34.0); MEAN CORPUSCULAR HGB CONC 33.5 % (32.0-36.0); MONO % 6.1 % (0.0-8.0); NEUT % 85.4 % (16.0-70.0); PLATELET COUNT 83 TH/MM3 (150-450); RED BLOOD COUNT 4.71 MIL/MM3 (4.50-5.90); RED CELL DISTRIBUTION WIDTH 15.7 % (11.6-17.2); WHITE BLOOD COUNT 8.7 TH/MM3 (4.0-11.0)
[2016-09-09 04:34] LABS: HEMO FLAGS AUTO DIFF
[2016-09-09 05:05] LABS: ALKALINE PHOSPHATASE 177 U/L (45-117); ALT (GPT) 84 U/L (12-78); AST (GOT) 46 U/L (15-37); BLOOD UREA NITROGEN 46 MG/DL (7-18); CHLORIDE 85 MEQ/L (98-107); GLOMERULAR FILTRATION RATE 67 ML/MIN (>89); POTASSIUM 3.8 MEQ/L (3.5-5.1); SODIUM (NA) 137 MEQ/L (136-145); TOTAL BILIRUBIN ADULT 0.8 MG/DL (0.2-1.0)
[2016-09-09 05:16] LABS: ANION GAP 7 MEQ/L (5-15); BICARBONATE GREATER THAN 45.0 MEQ/L (21.0-32.0)
[2016-09-09 07:16] LABS: PLATELET ESTIMATE SMEAR LOW (NORMAL); PLATELET MORPHOLOGY ENLARGED (NORMAL); SCAN/DIFF AUTO DIFF CONFIRMED
[2016-09-09] MEDS: LEVOTHYROXINE SODIUM 50 MCG TAB PO SCH (07:31)
[2016-09-09] MEDS: INSULIN ASPART SUPPLEMENTAL SCALE SQ SCH ×3 (07:31→18:24)
[2016-09-09] MEDS: INSULIN DETEMIR 100 UNITS/ML VIAL SQ SCH ×2 (07:31→20:18)
--- NOTE | 2016-09-09 07:51 | PD.CARD.PN ---
Subjective Subjective Remarks shortness of breath slightly improved (Bandar Yu) Objective Vital Signs / I&O Vital Signs Date Time Temp Pulse Resp B/P Pulse Ox O2 Delivery O2 Flow Rate FiO2 09/09/16 07:28 94 Partial Rebreather 12.00 09/09/16 06:00 88 09/09/16 04:00 98.3 80 27 167/72 90 09/09/16 04:00 90 Non-Rebreather 15.00 09/09/16 04:00 80 09/09/16 02:11 95 Partial Rebreather 12.00 09/09/16 02:00 79 09/09/16 01:15 96 50 09/09/16 00:00 77 09/09/16 00:00 96 Bi-Pap 09/09/16 00:00 98.8 77 33 190/76 96 09/08/16 22:39 93 50 09/08/16 22:00 80 09/08/16 20:00 82 09/08/16 20:00 96 Non-Rebreather 15.00 09/08/16 20:00 98.5 80 18 176/73 96 09/08/16 19:22 93 Partial Rebreather 12.00 09/08/16 18:00 78 09/08/16 16:00 98.0 78 18 149/60 93 09/08/16 16:00 75 09/08/16 16:00 94 Non-Rebreather 09/08/16 15:55 94 10.00 09/08/16 14:00 74 09/08/16 12:00 94 Non-Rebreather 09/08/16 12:00 97.6 83 26 142/62 94 09/08/16 12:00 83 09/08/16 10:58 18 09/08/16 10:00 79 09/08/16 08:00 97.0 74 24 155/67 98 09/08/16 08:00 98 Non-Rebreather 09/08/16 08:00 74 I/O 09/08/16 09/08/16 09/08/16 09/09/16 09/09/16 09/09/16 07:00 15:00 23:00 07:00 15:00 23:00 Intake Total 249 ml 1128 ml 663 ml 265 ml Output Total 3800 ml 3750 ml 3800 ml 1750 ml Balance -3551 ml -2622 ml -3137 ml -1485 ml Intake Oral 90 ml 1020 ml 500 ml 100 ml IV Total 159 ml 108 ml 163 ml 165 ml Output Urine Total 3800 ml 3750 ml 3800 ml 1750 ml # Bowel Movements 0 2 1 0 Physical Exam GENERAL: Well-nourished, well-developed patient in no apparent distress. NECK: No JVD. No carotid bruit. CARDIOVASCULAR: Regular rate and rhythm. S1/S2 no rub or gallop. II/ STEVE LSB RESPIRATORY: No accessory muscle use. rales to auscultation. Breath sounds equal bilaterally. GASTROINTESTINAL: Abdomen soft, non-tender, nondistended. MUSCULOSKELETAL: Extremities without clubbing, cyanosis, or edema. Laboratory Laboratory Tests Test 09/08/16 09/09/16 12:29 03:52 Prothrombin Time 14.2 SEC Prothromb Time International 1.3 RATIO Ratio Activated Partial 29.4 SEC Thromboplast Time Fibrinogen 389 mg/dL D-Dimer Quantitative (PE/DVT) 3.59 MG/L FEU White Blood Count 8.7 TH/MM3 Red Blood Count 4.71 MIL/MM3 Hemoglobin 12.8 GM/DL Hematocrit 38.3 % Mean Corpuscular Volume 81.4 FL Mean Corpuscular Hemoglobin 27.3 PG Mean Corpuscular Hemoglobin 33.5 % Concent Red Cell Distribution Width 15.7 % Platelet Count 83 TH/MM3 Mean Platelet Volume 9.3 FL Neutrophils (%) (Auto) 85.4 % Lymphocytes (%) (Auto) 7.8 % Monocytes (%) (Auto) 6.1 % Eosinophils (%) (Auto) 0.5 % Basophils (%) (Auto) 0.2 % Neutrophils # (Auto) 7.4 TH/MM3 Lymphocytes # (Auto) 0.7 TH/MM3 Monocytes # (Auto) 0.5 TH/MM3 Eosinophils # (Auto) 0.0 TH/MM3 Basophils # (Auto) 0.0 TH/MM3 CBC Comment AUTO DIFF Differential Comment AUTO DIFF CONFIRMED Platelet Estimate LOW Platelet Morphology Comment ENLARGED Sodium Level 137 MEQ/L Potassium Level 3.8 MEQ/L Chloride Level 85 MEQ/L Carbon Dioxide Level GREATER THAN 45.0 MEQ/L Anion Gap 7 MEQ/L Blood Urea Nitrogen 46 MG/DL Creatinine 1.09 MG/DL Estimat Glomerular Filtration 67 ML/MIN Rate Random Glucose 151 MG/DL Calcium Level 9.3 MG/DL Phosphorus Level 3.0 MG/DL Magnesium Level 2.0 MG/DL Total Bilirubin 0.8 MG/DL Aspartate Amino Transf 46 U/L (AST/SGOT) Alanine Aminotransferase 84 U/L (ALT/SGPT) Alkaline Phosphatase 177 U/L Total Protein 6.7 GM/DL Albumin 3.3 GM/DL (Bandar Yu) Assessment and Plan Problem List: (1) NSTEMI (non-ST elevated myocardial infarction) (2) Aortic stenosis (3) Congestive heart failure (CHF) (4) Hypertension Assessment and Plan NSTEMI - no chest pain. LHC when breathing improves - moderate to severe mean gradient 20 mmHg and valve area 0.88 cm2 ARF - creatine now normal and now dehydrated BUN 46, recommend stopping Bumex gtt HTN - high, increase carvedilol to 12.5 mg BID , avoid CASEY-I due to hyperkalemia PNA - conitnue ABX and supplemental oxygen. Continue weaning oxygen as tolerated (Bandar Yu) Assessment and Plan agree with above. symptomatically improved. Plan [facility] on tuesday if respiratory and kidney status is stable. will further evaluate AV severity invasively. Gradient moderately elevated, but RAMIREZ severely reduced. (Troy Dudley MD) Problem Qualifiers (1) Aortic stenosis: Qualified Code: I35.0 - Aortic valve stenosis, unspecified etiology (2) Congestive heart failure (CHF): (3) Hypertension: Qualified Code: I10 - Essential hypertension Bandar Yu Sep 09, 2016 07:51 Troy Dudley MD Sep 09, 2016 10:24
[2016-09-09] MEDS: CHLORHEXIDINE 0.12% (ORAL KIT) 15 ML CUP MT SCH ×2 (08:00→20:00)
[2016-09-09] MEDS: DOCUSATE SODIUM 50 MG/SENNA 8.6 MG TAB PO SCH (09:00)
--- NOTE | 2016-09-09 09:00 | HHI.CCPN ---
Subjective Remarks/Hospital Course The patient is a 71-year-old male with past medical history significant for COPD, aortic stenosis, hypertension and diabetes who presented to the emergency department with progressive shortness of breath and nonproductive cough for last 5 days. He was diagnosed and admitted to service on with [id number] ID, COPD exacerbation and probable pneumonia. He had a previous heart catheterization in 2014, was told at that time he needed to have aortic valve replacement. He was started on IV antibiotics with Rocephin and azithromycin and also was placed on IV steroids and DuoNeb breathing treatment for probable COPD exacerbation. All the cultures so far negative, also negative for influenza A and B, negative for Streptococcus and Legionella antigen. Cardiology was consulted, and echo showed moderate to severe aortic stenosis. Cardiothoracic surgery was also consulted and is following, plan for cardiac catheterization this Tuesday. A Halicat was called today as the patient was increasingly lethargic with increased dyspnea and hypoxia. He desaturated to the 70% when RN attempted to move him. Chest x-ray showed bilateral pulmonary edema worsening compared to admission. He was moved to the ICU and critical care medicine was consulted. I evaluated the patient in ICU. He is tachypneic on 100% nonrebreather. Examination revealed bilateral crackles. 60 mg of IV Lasix stat given and patient was ordered to be placed on BiPAP at 06/16. BNP was 658 SUBJECT 09/05/16: Patient did not tolerate BiPAP overnight. Currently remains on partial nonrebreather. Urine output more than 6 L in 24 hours. He developed atrial flutter with RVR, was placed on esmolol which I have changed to Cardizem. Chest x-ray shows interval improvement in my review 09/06/16: Remains on pNRB. sputum cx with strep pneumo. Urine out put diminishing. 1L bolus given with adequate response. Bilateral lung infiltrate. Discussed with Dr. Dudley. Will hold off cath until Reps failure/ALI improves and renal failure improves 09.07 Patient is on BIPAP 06/16 with FIO2 65%. Afebrile. 09/08 Patient is off BIPAP on Bumex drip 2mg/hr with UO 7.6L in 24 hrs. Afebrile feeling better. Renal function improving with Cr 1.52 from 2.07. 09/09 Patient is on partial rebreather with good sats. Afebrile. Renal function improving with Cr: 1.09 from 1.52. Remains on Bumex drip down 0.5mg/hr. Objective Vital Signs Date Time Temp Pulse Resp B/P Pulse Ox O2 Delivery O2 Flow Rate FiO2 09/09/16 07:28 94 Partial Rebreather 12.00 09/09/16 06:00 88 09/09/16 04:00 98.3 27 167/72 09/09/16 01:15 50 Intake and Output 09/08/16 09/08/16 09/09/16 08:00 16:00 00:00 Intake Total 249 ml 1128 ml 663 ml Output Total 3800 ml 3750 ml 3800 ml Balance -3551 ml -2622 ml -3137 ml Result Diagram: 09/09/16 0352 09/09/16 0352 Other Results Laboratory Tests Test 09/08/16 09/09/16 12:29 03:52 Prothrombin Time 14.2 SEC Prothromb Time International 1.3 RATIO Ratio Activated Partial 29.4 SEC Thromboplast Time Fibrinogen 389 mg/dL D-Dimer Quantitative (PE/DVT) 3.59 MG/L FEU White Blood Count 8.7 TH/MM3 Red Blood Count 4.71 MIL/MM3 Hemoglobin 12.8 GM/DL Hematocrit 38.3 % Mean Corpuscular Volume 81.4 FL Mean Corpuscular Hemoglobin 27.3 PG Mean Corpuscular Hemoglobin 33.5 % Concent Red Cell Distribution Width 15.7 % Platelet Count 83 TH/MM3 Mean Platelet Volume 9.3 FL Neutrophils (%) (Auto) 85.4 % Lymphocytes (%) (Auto) 7.8 % Monocytes (%) (Auto) 6.1 % Eosinophils (%) (Auto) 0.5 % Basophils (%) (Auto) 0.2 % Neutrophils # (Auto) 7.4 TH/MM3 Lymphocytes # (Auto) 0.7 TH/MM3 Monocytes # (Auto) 0.5 TH/MM3 Eosinophils # (Auto) 0.0 TH/MM3 Basophils # (Auto) 0.0 TH/MM3 CBC Comment AUTO DIFF Differential Comment AUTO DIFF CONFIRMED Platelet Estimate LOW Platelet Morphology Comment ENLARGED Sodium Level 137 MEQ/L Potassium Level 3.8 MEQ/L Chloride Level 85 MEQ/L Carbon Dioxide Level GREATER THAN 45.0 MEQ/L Anion Gap 7 MEQ/L Blood Urea Nitrogen 46 MG/DL Creatinine 1.09 MG/DL Estimat Glomerular Filtration 67 ML/MIN Rate Random Glucose 151 MG/DL Calcium Level 9.3 MG/DL Phosphorus Level 3.0 MG/DL Magnesium Level 2.0 MG/DL Total Bilirubin 0.8 MG/DL Aspartate Amino Transf 46 U/L (AST/SGOT) Alanine Aminotransferase 84 U/L (ALT/SGPT) Alkaline Phosphatase 177 U/L Total Protein 6.7 GM/DL Albumin 3.3 GM/DL Imaging Last Impressions Chest X-Ray 09/08/16 0000 Signed Impressions: Service Date/Time: Thursday, September 08, 2016 08:19 - CONCLUSION: The chest is abnormal with patchy air space disease; stable in the interval. Ed Rogel MD FACR Abdomen Ultrasound 09/07/16 0000 Signed Impressions: Service Date/Time: Wednesday, September 07, 2016 16:45 - CONCLUSION: Heterogeneous hepatic echotexture consistent with chronic liver disease. Splenomegaly Mild to moderate ascites Mildly thickened gallbladder wall without evidence of gallstones. No evidence of hydronephrosis. Isidro Oliver MD Upper Extremity Ultrasound 09/06/16 0000 Signed Impressions: Service Date/Time: Tuesday, September 06, 2016 20:43 - CONCLUSION: No evidence of DVT. Isidro Oliver MD Chest CT 09/05/16 0000 Signed Impressions: Service Date/Time: Monday, September 05, 2016 15:37 - CONCLUSION: 1. Cardiomegaly with diffuse ground glass densities and consolidation likely pulmonary edema and/or pneumonia. 2. Small bilateral pleural effusions. 3. Prominent lymphadenopathy in the mediastinum. Cameron Archer MD Objective Remarks Gen: 71-year-old male lying in ICU bed on BIPAP Head: Normocephalic. Atraumatic. EENT: Pupils equal round and reactive to light. Cardiovascular: S1-S2 normal. Systolic murmur heard in the aortic area Respiratory: Bilateral rhonchi and bibasilar crackles Abdomen: Soft, nontender, nondistended. No peritoneal signs. Musculoskeletal: No gross deformities. No edema. Skin: No obvious rashes or erythema. Neuro: Alert awake oriented 3. No focal deficits A/P Assessment and Plan NEURO: -Minimize sedation, as needed morphine for pain, anxiety RESP: Acute hypoxemic respiratory failure requiring BiPAP ARDS Pneumococcal pneumonia COPD exacerbation -Continue with oxygen keep sat >92% -BiPAP 12/7 PRN for resp distress, check CXR - Solu-Medrol 40mg Q12 and DuoNeb breathing treatments -EzPAP, Acapella every 6 hours CV: Severe aortic stenosis CHF NSTEMI -Monitor HR and BP keep MAP>65mmHg -Continue aspirin, Coreg, and pravastatin. -Cardiothoracic surgery and cardiology Dr. Dudley is following -[facility] with resp status and renal function improves. GI: -Elevated LFT's..trending down -On PO diet -Protonix for GI prophylaxis -Monitor LFT's, US abdomen: Heterogeneous hepatic echotexture consistent with chronic liver disease. Splenomegaly Mild to moderate ascites Mildly thickened gallbladder wall without evidence of gallstones. No evidence of hydronephrosis. : Acute kidney injury..improving Hyponatremia..resolving -Monitor renal function, I/O's, avoid nephrotoxins. -Renal function improving with Cr 1.09 from 1.52 f -Renal- Dr. Roa. Renal US: No hydronephrosis -D/c Bumex drip and give Diamox 250mg IV x1 ID: Sepsis Pneumococcal pneumonia -Continue abx per ID (Teflaro).Monitor for signs of infections ( Fever, WBC) -Sputum culture positive for strep pneumo. Influenza negative HEME: -Monitor CBC, CMP, coags. Hep PLT ab positive, follow up on TIGIST -Heme is following ENDO: Type 2 diabetes Hypothyroidism -Sliding-scale insulin. Continue Levemir -Continue Synthroid 50 mcg daily. TSH: 0.373 PROPH: -Bilateral lower extremity SCDs. Protonix for GI prophylaxis. Heparin SQ on hold for thrombocytopenia LINES: -Utilize peripheral IVs, Level 3 Gerry Vivas MD Sep 09, 2016 09:00
--- NOTE | 2016-09-09 09:33 | HHI.NPPN ---
Subjective Complaints: Confused, Shortness of Breath General Problems: Edema Renal Failure: Chronic, Acute Interval History Renal function is better. Excellent response to diuretic. (Prachi Palencia) Review of Systems General Constitutional: Fatigue (Prachi Palencia) Respiratory Lungs: SOB (Prachi Palencia) Cardiovascular Cardiac: Edema (Prachi Palencia) Objective Data Data 09/08/16 09/09/16 19:00 07:00 Intake Total 1128 ml 928 ml Output Total 3750 ml 5550 ml Balance -2622 ml -4622 ml Intake Oral 1020 ml 600 ml IV Total 108 ml 328 ml Output Urine Total 3750 ml 5550 ml # Bowel Movements 2 1 Vital Signs Date Time Temp Pulse Resp B/P Pulse Ox O2 Delivery O2 Flow Rate FiO2 09/09/16 07:28 94 Partial Rebreather 12.00 09/09/16 06:00 88 09/09/16 04:00 98.3 80 27 167/72 90 09/09/16 04:00 90 Non-Rebreather 15.00 09/09/16 04:00 80 09/09/16 02:11 95 Partial Rebreather 12.00 09/09/16 02:00 79 09/09/16 01:15 96 50 09/09/16 00:00 77 09/09/16 00:00 96 Bi-Pap 09/09/16 00:00 98.8 77 33 190/76 96 09/08/16 22:39 93 50 09/08/16 22:00 80 09/08/16 20:00 82 09/08/16 20:00 96 Non-Rebreather 15.00 09/08/16 20:00 98.5 80 18 176/73 96 09/08/16 19:22 93 Partial Rebreather 12.00 09/08/16 18:00 78 09/08/16 16:00 98.0 78 18 149/60 93 09/08/16 16:00 75 09/08/16 16:00 94 Non-Rebreather 09/08/16 15:55 94 10.00 09/08/16 14:00 74 09/08/16 12:00 94 Non-Rebreather 09/08/16 12:00 97.6 83 26 142/62 94 09/08/16 12:00 83 09/08/16 10:58 18 09/08/16 10:00 79 (Prachi Palencia) -: 09/09/16 0352 09/09/16 0352 Microbiology 09/08/16 Stool Occult Blood (CASSIDY) - Final, Complete HEMOCCULT NEGATIVE Imaging Last 72 hours Impressions Chest X-Ray 09/08/16 0000 Signed Impressions: Service Date/Time: Thursday, September 08, 2016 08:19 - CONCLUSION: The chest is abnormal with patchy air space disease; stable in the interval. Ed Rogel MD FACR Chest X-Ray 09/07/16 0600 Signed Impressions: Service Date/Time: Wednesday, September 07, 2016 05:14 - CONCLUSION: 1. Stable to slight worsening of bilateral airspace disease over the last day. Timbo Quarles MD Abdomen Ultrasound 09/07/16 0000 Signed Impressions: Service Date/Time: Wednesday, September 07, 2016 16:45 - CONCLUSION: Heterogeneous hepatic echotexture consistent with chronic liver disease. Splenomegaly Mild to moderate ascites Mildly thickened gallbladder wall without evidence of gallstones. No evidence of hydronephrosis. Isidro Oliver MD Tubes & Lines: [place] Drip Comment bumex (Prachi Palencia) Physical Exam General Appearance: Well Developed, Well Nourished, No Acute Distress (Prachi Palencia) Throat Throat Exam: Oral Mucosa [place] & Moist (Prachi Palencia) Pulmonary Resp Exam: Breath Sounds Equal, Crackles, Decreased Bases (Prachi Palencia) Cardiology CV Exam: Regular, Good Perfusion (Prachi Palencia) Gastrointestinal/Abdomen GI Exam: Soft, Non-Tender, Bowel Sounds Present (Prachi Palencia) Musculoskeletal MS Exam: Joints Intact, Normal Gait, Normal Tone (Prachi Palencia) Integumentary Skin Exam: Clear, Warm, Dry, Intact (Prachi Palencia) Extremeties Extremities Exam: Pedal Pulses Palpable, Moderate Edema (Prachi Palencia) Neurologic Neuro Exam: Awake, Moving All Extremities (Prachi Palencia) Psychiatric Psych Exam: Appropriate Responses (Prachi Palencia) Assessment/Plan Discussed Condition With: Patient, Relative Assessment Summary: PHILIPPE/Acute Renal Failure Problem List: (1) PHILIPPE (acute kidney injury) Plan: Likely ATN, due to hypoperfusion injury (sepsis, hypotension, A fib RVR) renal function better no electrolyte concerns aside from C02 retention fluid status improved, stop Bumex gtt, Diamox started renal US negative Avoid nephrotoxic agents. avoid IVF daily renal panel (2) Congestive heart failure (CHF) Plan: improving, negative fluid volume balance stop Bumex gtt ; on Diamox (3) Diabetes Plan: continue insulin therapy monitor glucose, goal 140-180 mg/dL (4) Hypertension Plan: not on pressors monitor BP, medicate per admitting team (5) Severe sepsis Plan: from strep pneumonia ID following, on Teflaro (6) Aortic stenosis Plan: CT following plan for heart cath when clinically improved (Prachi Palencia) Plan patient was seen and examined. Agree with above assessment and plan. (Gentry Roa MD) Problem Qualifiers (1) Congestive heart failure (CHF): (2) Diabetes: (3) Hypertension: Qualified Code: I10 - Essential hypertension (4) Aortic stenosis: Qualified Code: I35.0 - Aortic valve stenosis, unspecified etiology Prachi Palencia Sep 09, 2016 09:33 Gentry Roa MD Sep 09, 2016 15:04
--- NOTE | 2016-09-09 10:11 | RADRPT ---
EXAM DATE/TIME: 09/09/2016 09:06 [place] COMPARISON: CT THORAX W/O CONTRAST, September 05, 2016, 15:37. CHEST SINGLE AP, September 07, 2016, 5:14. CHEST S ORALIA AP, September 08, 2016, 8:19. INDICATIONS : Shortness of breath. MEDICAL HISTORY : Hypertension. Chronic obstructive pulmonary disease. Diabetes mellitus type II. Arthritis. GERD. SURGICAL HISTORY : None. ENCOUNTER: Subsequent ACUITY: 1 week PAIN SCORE: 0/10 LOCATION: Bilateral chest FINDINGS: The examination demonstrates diffuse airspace disease bilaterally. This is mildly improved when ney red to previous examination of 09/07/16. The heart is at the upper limits of normal in size. Visualize d bony structures are grossly intact. CONCLUSION: 1. Diffuse bilateral infiltrates improved when compared to previous. Bonifacio Rogel MD on September 09, 2016 at 10:07 Board Certified Radiologist. This report was verified electronically.
[2016-09-09] MEDS: PREGABALIN 75 MG CAP PO SCH ×2 (10:30→20:18)
[2016-09-09] MEDS: ASPIRIN 325 MG TAB PO SCH (10:30)
[2016-09-09] MEDS: SERTRALINE HCL 100 MG TAB PO SCH (10:30)
[2016-09-09] MEDS: PRIMIDONE 50 MG TAB PO SCH ×3 (10:30→18:24)
[2016-09-09] MEDS: FERROUS SULFATE 325 MG (65 MG ELEMENTAL IRON) TAB PO SCH ×2 (10:31→20:18)
[2016-09-09] MEDS: PRAVASTATIN SOD 40 MG TAB PO SCH (10:31)
[2016-09-09] MEDS: busPIRone HCL 10 MG TAB PO SCH ×2 (10:31→20:18)
[2016-09-09] MEDS: CARVEDILOL 6.25 MG TAB PO SCH ×2 (10:32→20:18)
[2016-09-09] MEDS: methylPREDNISolone SOD SUCC 40 MG/1 ML VIAL IV SCH ×2 (10:32→20:18)
[2016-09-09] MEDS ORDERED: SODIUM CHLORIDE 0.9% FLUSH 5 ML FLUSH IVF PRN (10:45)
[2016-09-09] MEDS ORDERED: AMIODARONE INJ 150 MG in DEXTROSE 5% IN WATER 100ML INJ 97 ML IV ONE ×2 (11:00)
[2016-09-09] MEDS ORDERED: AMIODARONE INJ 900 MG in D5W 500 ML (EXCEL BAG) 482 ML IV SCH (11:00)
--- NOTE | 2016-09-09 11:01 | HHI.IDPN ---
Subjective Subjective Remarks Mr. Gudino is a 71-year-old male with PMHx significant for COPD, aortic stenosis, hypertension and diabetes who presented to the emergency department with progressive shortness of breath and nonproductive cough for last 5 days. ID following for resistant Strep pneumo pneumonia. Also pulm edema from severe aortic stenosis. Overnight events reviewed No fevers No rash breathing better. Antibiotics Teflaro IV Lines Line sites with no e/o infection Past Medical History reviewed Allergies: Coded Allergies: Niacin (Unverified Allergy, Severe, GENERALIZED BURNING AND ITCHING, ) Objective . Vital Signs Date Time Temp Pulse Resp B/P Pulse Ox O2 Delivery O2 Flow Rate FiO2 09/09/16 08:00 92 Non-Rebreather 15.00 09/09/16 08:00 90 09/09/16 07:28 94 Partial Rebreather 12.00 09/09/16 06:00 88 09/09/16 04:00 98.3 80 27 167/72 90 09/09/16 04:00 90 Non-Rebreather 15.00 09/09/16 04:00 80 09/09/16 02:11 95 Partial Rebreather 12.00 09/09/16 02:00 79 09/09/16 01:15 96 50 09/09/16 00:00 77 09/09/16 00:00 96 Bi-Pap 09/09/16 00:00 98.8 77 33 190/76 96 09/08/16 22:39 93 50 09/08/16 22:00 80 09/08/16 20:00 82 09/08/16 20:00 96 Non-Rebreather 15.00 09/08/16 20:00 98.5 80 18 176/73 96 09/08/16 19:22 93 Partial Rebreather 12.00 09/08/16 18:00 78 09/08/16 16:00 98.0 78 18 149/60 93 09/08/16 16:00 75 09/08/16 16:00 94 Non-Rebreather 09/08/16 15:55 94 10.00 09/08/16 14:00 74 09/08/16 12:00 94 Non-Rebreather 09/08/16 12:00 97.6 83 26 142/62 94 09/08/16 12:00 83 09/08/16 09/08/16 09/09/16 15:00 23:00 07:00 Intake Total 1128 ml 663 ml 265 ml Output Total 3750 ml 3800 ml 1750 ml Balance -2622 ml -3137 ml -1485 ml Intake Oral 1020 ml 500 ml 100 ml IV Total 108 ml 163 ml 165 ml Output Urine Total 3750 ml 3800 ml 1750 ml # Bowel Movements 2 1 0 . Laboratory Tests Test 09/08/16 09/09/16 02:07 03:52 White Blood Count 5.7 TH/MM3 8.7 TH/MM3 Red Blood Count 3.91 MIL/MM3 4.71 MIL/MM3 Hemoglobin 10.5 GM/DL 12.8 GM/DL Hematocrit 32.4 % 38.3 % Mean Corpuscular Volume 82.8 FL 81.4 FL Mean Corpuscular Hemoglobin 26.8 PG 27.3 PG Mean Corpuscular Hemoglobin 32.3 % 33.5 % Concent Red Cell Distribution Width 16.1 % 15.7 % Platelet Count 77 TH/MM3 83 TH/MM3 Mean Platelet Volume 9.2 FL 9.3 FL Neutrophils (%) (Auto) 83.4 % 85.4 % Lymphocytes (%) (Auto) 8.0 % 7.8 % Monocytes (%) (Auto) 7.2 % 6.1 % Eosinophils (%) (Auto) 0.2 % 0.5 % Basophils (%) (Auto) 1.2 % 0.2 % Neutrophils # (Auto) 4.7 TH/MM3 7.4 TH/MM3 Lymphocytes # (Auto) 0.5 TH/MM3 0.7 TH/MM3 Monocytes # (Auto) 0.4 TH/MM3 0.5 TH/MM3 Eosinophils # (Auto) 0.0 TH/MM3 0.0 TH/MM3 Basophils # (Auto) 0.1 TH/MM3 0.0 TH/MM3 CBC Comment AUTO DIFF AUTO DIFF Differential Comment AUTO DIFF AUTO DIFF CONFIRMED CONFIRMED Platelet Estimate LOW LOW Platelet Morphology Comment ENLARGED ENLARGED Haptoglobin 237 MG/DL Laboratory Tests Test 09/07/16 09/08/16 09/08/16 09/09/16 11:11 02:07 21:28 03:52 Serum Osmolality 304 MOSM/KG Uric Acid 6.5 MG/DL Sodium Level 136 MEQ/L 137 MEQ/L Potassium Level 4.0 MEQ/L 3.8 MEQ/L Chloride Level 93 MEQ/L 85 MEQ/L Carbon Dioxide Level 33.7 MEQ/L GREATER THAN 45.0 MEQ/L Anion Gap 9 MEQ/L 7 MEQ/L Blood Urea Nitrogen 71 MG/DL 46 MG/DL Creatinine 1.52 MG/DL 1.09 MG/DL Estimat Glomerular Filtration 46 ML/MIN 67 ML/MIN Rate Random Glucose 281 MG/DL 151 MG/DL Calcium Level 8.5 MG/DL 9.3 MG/DL Total Bilirubin 0.7 MG/DL 0.8 MG/DL Aspartate Amino Transf 57 U/L 46 U/L (AST/SGOT) Alanine Aminotransferase 100 U/L 84 U/L (ALT/SGPT) Alkaline Phosphatase 134 U/L 177 U/L Lactate Dehydrogenase 377 U/L Total Protein 6.2 GM/DL 6.7 GM/DL Albumin 3.2 GM/DL 3.3 GM/DL Procalcitonin 0.07 ng/mL Phosphorus Level 3.0 MG/DL Magnesium Level 2.0 MG/DL Microbiology Date/Time Procedure Status Source Growth 09/07/16 12:05 Urine Culture - Final Complete Urine Catheterized Urine NO GROWTH IN 48 HOURS. 09/08/16 11:40 Stool Occult Blood (CASSIDY) - Final Complete Stool Stool HEMOCCULT NEGATIVE Imaging Last Impressions Chest X-Ray 09/08/16 0000 Signed Impressions: Service Date/Time: Thursday, September 08, 2016 08:19 - CONCLUSION: The chest is abnormal with patchy air space disease; stable in the interval. Ed Rogel MD FACR Abdomen Ultrasound 09/07/16 0000 Signed Impressions: Service Date/Time: Wednesday, September 07, 2016 16:45 - CONCLUSION: Heterogeneous hepatic echotexture consistent with chronic liver disease. Splenomegaly Mild to moderate ascites Mildly thickened gallbladder wall without evidence of gallstones. No evidence of hydronephrosis. Isidro Oliver MD Upper Extremity Ultrasound 09/06/16 0000 Signed Impressions: Service Date/Time: Tuesday, September 06, 2016 20:43 - CONCLUSION: No evidence of DVT. Isidro Oliver MD Chest CT 09/05/16 0000 Signed Impressions: Service Date/Time: Monday, September 05, 2016 15:37 - CONCLUSION: 1. Cardiomegaly with diffuse ground glass densities and consolidation likely pulmonary edema and/or pneumonia. 2. Small bilateral pleural effusions. 3. Prominent lymphadenopathy in the mediastinum. Cameron Archer MD Physical Exam GENERAL: This is an obese, well-developed patient, in no apparent distress. SKIN: No rashes, ecchymoses or lesions. Cool and dry. HEAD: Atraumatic. Normocephalic. No temporal or scalp tenderness. EYES: Pupils equal round and reactive. Extraocular motions intact. No scleral icterus. No injection or drainage. ENT: Nose without bleeding, purulent drainage or septal hematoma. Throat without erythema, tonsillar hypertrophy or exudate. Uvula midline. Airway patent. NECK: Trachea midline. Supple, nontender, no meningeal signs. CARDIOVASCULAR: HS audible RESPIRATORY: Coarse bilateral breath sounds. Decreased air entry bilaterally. GASTROINTESTINAL: Abdomen soft, non-tender, Pendulous. MUSCULOSKELETAL: Extremities without clubbing, cyanosis, or edema. No joint tenderness, effusion, or edema noted. NEUROLOGICAL: Awake and alert. Grossly non focal. Psych: cooperative IV line sites with no e.o infection. Assessment & Plan Remarks Sepsis Resistant Strep Pneumonia. Possible larger component of pulm edema at present time. Acute resp failure on BiPAP Acute renal failure: sepsis, prerenal Acute transaminitis: sepsis Acute COPD exacerbation Severe Aortic Stenosis with Pulm edema Recs Continue Teflaro IV (renal dose adjusted d.w Pharmacist in ICU) (ASP: PCN and Ceph resistant Strep Pneumo Pneumonia) d.w Micro: susceptibility on Sputum Strep resistant to PCN and Cephalosporins. Procalcitonin level normal but patient clinically responded to combination of diuretics and antibiotics. d/w Cardiology: finish short course for pneumonia. [place] since patient is up for major heart surgery. Follow cultures Follow clinically. D.w LENA STEPHENS D.w RN d/w patient and in room. Saba Henderson MD Sep 09, 2016 11:01
[2016-09-09] MEDS: AMIODARONE INJ 450 MG in DEXTROSE 5% IN WATE(EXCEL) INJ 241 ML IV SCH ×4 (12:15→20:58)
--- NOTE | 2016-09-09 12:28 | PD.ONC.PN ---
Subjective Subjective Remarks Afebrile overnight. Patient resting. and son at bedside. Patient in SVT this AM, Amiodarone drip just started. No bleeding. Objective Data Date Time Temp Pulse Resp B/P Pulse Ox O2 Delivery O2 Flow Rate FiO2 09/09/16 08:00 92 Non-Rebreather 15.00 09/09/16 08:00 90 09/09/16 07:28 94 Partial Rebreather 12.00 09/09/16 06:00 88 09/09/16 04:00 98.3 80 27 167/72 90 09/09/16 04:00 90 Non-Rebreather 15.00 09/09/16 04:00 80 09/09/16 02:11 95 Partial Rebreather 12.00 09/09/16 02:00 79 09/09/16 01:15 96 50 09/09/16 00:00 77 09/09/16 00:00 96 Bi-Pap 09/09/16 00:00 98.8 77 33 190/76 96 09/08/16 22:39 93 50 09/08/16 22:00 80 09/08/16 20:00 82 09/08/16 20:00 96 Non-Rebreather 15.00 09/08/16 20:00 98.5 80 18 176/73 96 09/08/16 19:22 93 Partial Rebreather 12.00 09/08/16 18:00 78 09/08/16 16:00 98.0 78 18 149/60 93 09/08/16 16:00 75 09/08/16 16:00 94 Non-Rebreather 09/08/16 15:55 94 10.00 09/08/16 14:00 74 09/09/16 09/09/16 09/09/16 07:00 15:00 23:00 Intake Total 265 ml Output Total 1750 ml Balance -1485 ml Result Diagram: 09/09/16 0352 09/09/16 0352 Laboratory Results Laboratory Tests Test 09/08/16 09/08/16 09/09/16 12:29 21:28 03:52 Prothrombin Time 14.2 SEC Prothromb Time International 1.3 RATIO Ratio Activated Partial 29.4 SEC Thromboplast Time Fibrinogen 389 mg/dL D-Dimer Quantitative (PE/DVT) 3.59 MG/L FEU Procalcitonin 0.07 ng/mL White Blood Count 8.7 TH/MM3 Red Blood Count 4.71 MIL/MM3 Hemoglobin 12.8 GM/DL Hematocrit 38.3 % Mean Corpuscular Volume 81.4 FL Mean Corpuscular Hemoglobin 27.3 PG Mean Corpuscular Hemoglobin 33.5 % Concent Red Cell Distribution Width 15.7 % Platelet Count 83 TH/MM3 Mean Platelet Volume 9.3 FL Neutrophils (%) (Auto) 85.4 % Lymphocytes (%) (Auto) 7.8 % Monocytes (%) (Auto) 6.1 % Eosinophils (%) (Auto) 0.5 % Basophils (%) (Auto) 0.2 % Neutrophils # (Auto) 7.4 TH/MM3 Lymphocytes # (Auto) 0.7 TH/MM3 Monocytes # (Auto) 0.5 TH/MM3 Eosinophils # (Auto) 0.0 TH/MM3 Basophils # (Auto) 0.0 TH/MM3 CBC Comment AUTO DIFF Differential Comment AUTO DIFF CONFIRMED Platelet Estimate LOW Platelet Morphology Comment ENLARGED Sodium Level 137 MEQ/L Potassium Level 3.8 MEQ/L Chloride Level 85 MEQ/L Carbon Dioxide Level GREATER THAN 45.0 MEQ/L Anion Gap 7 MEQ/L Blood Urea Nitrogen 46 MG/DL Creatinine 1.09 MG/DL Estimat Glomerular Filtration 67 ML/MIN Rate Random Glucose 151 MG/DL Calcium Level 9.3 MG/DL Phosphorus Level 3.0 MG/DL Magnesium Level 2.0 MG/DL Total Bilirubin 0.8 MG/DL Aspartate Amino Transf 46 U/L (AST/SGOT) Alanine Aminotransferase 84 U/L (ALT/SGPT) Alkaline Phosphatase 177 U/L Total Protein 6.7 GM/DL Albumin 3.3 GM/DL Culture Results Microbiology Date/Time Procedure Status Source Growth 09/07/16 12:05 Urine Culture - Final Complete Urine Catheterized Urine NO GROWTH IN 48 HOURS. 09/08/16 11:40 Stool Occult Blood (CASSIDY) - Final Complete Stool Stool HEMOCCULT NEGATIVE Imaging Studies Last 24 hours Impressions Chest X-Ray 09/09/16 0000 Signed Impressions: Service Date/Time: September 09:06 - CONCLUSION: 1. Diffuse bilateral infiltrates improved when compared to previous. Bonifacio Rogel MD Administered Medications Medications (Trade) Dose Ordered Sig/Dev Route PRN Reason Start Time Stop Time Status Last Admin Dose Admin IV Flush (NS Flush) 2 ml UNSCH PRN IVF FLUSH AFTER USING IV ACCESS 08/31/16 11:15 09/06/16 07:45 Buspirone HCl (Buspar) 10 mg BID PO 08/31/16 21:00 09/09/16 10:31 Levothyroxine Sodium (Synthroid) 50 mcg DAILY@06 PO 09/01/16 06:00 09/09/16 07:31 Pravastatin Sodium (Pravachol) 40 mg DAILY PO 09/01/16 09:00 09/09/16 10:31 Pregabalin (Lyrica) 150 mg BID PO 08/31/16 21:00 09/09/16 10:30 Primidone (Mysoline) 100 mg TID PO 08/31/16 18:00 09/09/16 10:30 Sertraline HCl (Zoloft) 100 mg DAILY PO 09/01/16 09:00 09/09/16 10:30 Trazodone HCl (Desyrel) 100 mg HS PO 08/31/16 21:00 09/08/16 21:09 Dextrose (D50w (Vial) Inj) 25 ml UNSCH PRN IV PUSH HYPOGLYCEMIA-SEE COMMENTS 08/31/16 14:00 09/04/16 11:47 Aspirin (Aspirin) 325 mg DAILY PO 09/01/16 09:00 09/09/16 10:30 Heparin Sodium (Porcine) (Heparin Inj) 5,000 units Q8HR SQ 09/01/16 14:00 Hold 09/06/16 13:27 Alprazolam (Xanax) 0.5 mg Q12HR PRN PO ANXIETY 09/01/16 14:45 09/08/16 12:58 Miscellaneous Information Patient in critical care unit? Ass... [id number] XX 09/04/16 20:00 09/04/16 20:00 Morphine Sulfate (Morphine Inj) 2 mg Q4H PRN IV PAIN 1 TO 10 09/05/16 11:30 09/06/16 16:06 Ferrous Sulfate (Ferrous Sulfate) 325 mg BID PO 09/06/16 09:00 09/09/16 10:31 Carvedilol (Coreg) 6.25 mg Q12HR PO 09/06/16 09:00 09/09/16 10:32 Senna/Docusate Sodium (Shantelle-Colace) 2 tab DAILY PO 09/06/16 17:45 09/08/16 09:58 Lorazepam (Ativan Inj) 0.25 mg Q6H PRN IV PUSH ANXIETY 09/06/16 17:45 09/08/16 23:17 Insulin Aspart 1 1 Q6H SQ 09/07/16 12:00 09/09/16 07:31 Ceftaroline Fosamil/Sodium Chloride (Teflaro Inj/NS Inj) 100 ml @ 100 mls/hr Q12H IV 09/07/16 12:00 09/08/16 23:17 Insulin Detemir (Levemir Inj) 30 units HS SQ 09/07/16 21:00 09/08/16 21:10 Methylprednisolone Sodium Succinate (SoluMEDROL INJ) 40 mg Q12H IV 09/08/16 09:00 09/09/16 10:32 Hydralazine HCl (Apresoline Inj) 10 mg Q6H PRN IV SBP> OR = 160, DBP> OR = 100 09/09/16 03:15 09/09/16 04:10 Objective Remarks GENERAL: Chronically ill male, lying supine in bed SKIN: Warm and dry. HEAD: Normocephalic. EYES: No injection or drainage. NECK: Supple, trachea midline. CARDIOVASCULAR: tachycardic rate, regular rhythm. RESPIRATORY: anterior gallardo with scattered rhonchi. GASTROINTESTINAL: Abdomen soft, non-tender, nondistended. EXTREMITIES: No cyanosis NEUROLOGICAL: sleeping. Assessment/Plan Problem List: (1) Thrombocytopenia Status: Acute Plan: --multifactorial d/t sepsis +/- medication effect (i.e. 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 --possibility of DIC --HIT positive--likely false positive, will await TIGIST --Shabbir negative --LDH/haptoglobin both elevated --Abdominal u/s showed chronic liver disease + splenomegaly (2) Normocytic anemia Status: Acute Plan: --haptoglobin/LDH both elevated, which is not consistent with hemolysis --Shabbir negative --stool Hemoccult negative (3) Severe sepsis Status: Resolved Plan: --+pneumonia --on antibiotic (4) Transaminitis Status: Acute Plan: --hepatitis panel negative (5) Aortic stenosis Status: Acute Plan: --Severe aortic stenosis with CHF --currently being managed by cardiology and CT surgery. Assessment 71y/o male admitted with NSTEMI, COPD exacerbation, and pneumonia. Hematology consulted for acute thrombocytopenia. history of COPD, hypertension, diabetes aortic stenosis Plan 1. monitor CBC 2. await TIGIST 3. supportive care Attending Statement The exam, history, and the medical decision-making described in the above note were completed with the assistance of the mid-level provider. I reviewed and agree with the findings presented. I attest that I had a [id number] encounter with the patient on the same day, and personally performed and documented my assessment and findings in the medical record. HIT panel positive, possibility of false positive. TIGIST pending. Platelet count going. Hold off on argatroban drip. no leg swelling to suggest DVT d/w Dr. Stewart Problem Qualifiers (1) Aortic stenosis: Qualified Code: I35.0 - Aortic valve stenosis, unspecified etiology Iman Chin Sep 09, 2016 12:26 Cesar Vieyra MD Sep 09, 2016 21:42
[2016-09-09] MEDS: CEFTAROLINE INJ 300 MG in SODIUM CHLORIDE 0.9% INJ 100 ML IV SCH (12:49)
--- NOTE | 2016-09-09 13:56 | HHI.FPPN ---
Subjective Remarks Mr. Gudino was sitting up in bed. He said he felt better in terms of breathing. Was very sleepy during exam. (Eko,Rupali U R1) Objective Vitals Vital Signs Date Time Temp Pulse Resp B/P Pulse Ox O2 Delivery O2 Flow Rate FiO2 09/09/16 08:00 92 Non-Rebreather 15.00 09/09/16 08:00 90 09/09/16 07:28 94 Partial Rebreather 12.00 09/09/16 06:00 88 09/09/16 04:00 98.3 80 27 167/72 90 09/09/16 04:00 90 Non-Rebreather 15.00 09/09/16 04:00 80 09/09/16 02:11 95 Partial Rebreather 12.00 09/09/16 02:00 79 09/09/16 01:15 96 50 09/09/16 00:00 77 09/09/16 00:00 96 Bi-Pap 09/09/16 00:00 98.8 77 33 190/76 96 09/08/16 22:39 93 50 09/08/16 22:00 80 09/08/16 20:00 82 09/08/16 20:00 96 Non-Rebreather 15.00 09/08/16 20:00 98.5 80 18 176/73 96 09/08/16 19:22 93 Partial Rebreather 12.00 09/08/16 18:00 78 09/08/16 16:00 98.0 78 18 149/60 93 09/08/16 16:00 75 09/08/16 16:00 94 Non-Rebreather 09/08/16 15:55 94 10.00 09/08/16 14:00 74 I/O 09/08/16 09/08/16 09/08/16 09/09/16 09/09/16 09/09/16 07:00 15:00 23:00 07:00 15:00 23:00 Intake Total 249 ml 1128 ml 663 ml 265 ml Output Total 3800 ml 3750 ml 3800 ml 1750 ml Balance -3551 ml -2622 ml -3137 ml -1485 ml Intake Oral 90 ml 1020 ml 500 ml 100 ml IV Total 159 ml 108 ml 163 ml 165 ml Output Urine Total 3800 ml 3750 ml 3800 ml 1750 ml # Bowel Movements 0 2 1 0 (Rupali Eddy MD R1) Result Diagram: 09/09/16 0352 09/09/16 0352 Imaging Last Impressions Chest X-Ray 09/09/16 0000 Signed Impressions: Service Date/Time: September 09:06 - CONCLUSION: 1. Diffuse bilateral infiltrates improved when compared to previous. Bonifacio Rogel MD Abdomen Ultrasound 09/07/16 0000 Signed Impressions: Service Date/Time: Wednesday, September 07, 2016 16:45 - CONCLUSION: Heterogeneous hepatic echotexture consistent with chronic liver disease. Splenomegaly Mild to moderate ascites Mildly thickened gallbladder wall without evidence of gallstones. No evidence of hydronephrosis. Isidro Oliver MD Upper Extremity Ultrasound 09/06/16 0000 Signed Impressions: Service Date/Time: Tuesday, September 06, 2016 20:43 - CONCLUSION: No evidence of DVT. Isidro Oliver MD Chest CT 09/05/16 0000 Signed Impressions: Service Date/Time: Monday, September 05, 2016 15:37 - CONCLUSION: 1. Cardiomegaly with diffuse ground glass densities and consolidation likely pulmonary edema and/or pneumonia. 2. Small bilateral pleural effusions. 3. Prominent lymphadenopathy in the mediastinum. Cameron Archer MD Objective Remarks Gen.: Lying in bed, nonrebreather in place Head: Normocephalic. Atraumatic. EENT: Pupils equal round and reactive to light. Nose without drainage. Airway intact. Cardiovascular: Tachycardic rate and irregular rhythm. Systolic murmur heard best in the LSB Respiratory: Much improved aeration in lungs bilaterally Abdomen: Soft, nontender, nondistended. No peritoneal signs. Musculoskeletal: No gross deformities. No edema. Skin: No obvious rashes or erythema. Neuro: Sensory and motor grossly intact. Cranial nerves II through XII grossly intact. Psych: Smiles when awake, appropriately interacts with examiner (Rupali Eddy MD R1) A/P Assessment and Plan 71-year-old male who presented with a 5-day history of shortness of breath and nonproductive cough. ACS rule out positive for NSTEMI. Patient has a history of COPD and was admitted with sepsis with cardiology consultation for NSTEMI. Developed respiratory distress on 09/04 and was transferred to the ICU with critical care consult. Currently tolerating BiPAP and nonrebreather. Cardiology to perform left heart catheter when clinically better. Pulmonology on board. Nephrology consulted for PHILIPPE. Hematology consulted due to thrombocytopenia. Discharge Planning Pending clinical improvement (Eko,Rupali Stewart MD R1) Attending Attestation Patient seen and examined Case reviewed and discussed Agree with plan of care as discussed with me and documented in the resident note. (She Harris MD) Problem List: (1) Respiratory distress Status: Acute Plan: Improving. On nonrebreather/partial nonrebreather in the ICU -DC Bumex drip -Critical care managing -Solu-Medrol 40 mg every 12 hours -DuoNebs every 6 hours -Diamox started for hypercapnia (2) NSTEMI (non-ST elevated myocardial infarction) Status: Acute Plan: -Patient with elevated troponins to 1.[address] elevations in V1 V3. -Cardiology following -Left heart catheter when clinically able to tolerate procedure (3) Aortic stenosis Status: Acute Plan: -Cardiothoracic surgery consulted -Cardiology and cardiothoracic surgery to discuss plans going forward -Will need to optimize medical management for the infectious process prior to performing any procedures -Pulmonology consulted given high surgical risk- appreciate recommendations (4) Pneumonia Status: Acute Plan: -Sputum culture growing strep pneumo sensitive to vancomycin and Levaquin , intermediately sensitive to ceftriaxone -Antibiotics changed to Ceftarolin 300 mg IV every 12 on 09/07 (5) CHF due to valvular disease Status: Acute Plan: Echo performed on 09/02 showed EF of 5055 percent. -Aortic valve with moderate to severe stenosis. -Coreg 3.125 mg by mouth every 12 hours -BiPAP or nonrebreather per critical care (6) PHILIPPE (acute kidney injury) Status: Resolved Plan: -Likely prerenal in origin -Resolved, creatinine 1.09, WNL today -Nephrology on board (7) Thrombocytopenia Status: Acute Plan: -Platelets improved to 83 today -Hematology consulted -Suspect ITP versus DIC -Heparin subcutaneous discontinued -HIT positive, but likely false positive, TIGIST pending -Hepatitis panel negative -Abdominal ultrasound on 09/07 shows heterogeneous hepatic echo texture consistent with chronic liver disease, splenomegaly, mild to moderate ascites -Continue to monitor (8) Diabetes Status: Acute Plan: Patient's home regimen is NPH 25 units every morning and 50 units daily at bedtime -Required 19 units SSI in the last 24 hours -Increase Levemir to 40 units in the a.m. and 30 units at night -SSI -Adjust insulin regimen as needed (9) COPD exacerbation Status: Acute Plan: Patient with known COPD and [id number] history of smoking Albuterol every 2 hours when necessary DuoNeb nebs every 4 hours scheduled Solu-Medrol 60 mg every 8 hours (10) Hyponatremia Status: Acute Plan: -Pseudohyponatremia vs SIADH vs some element of both -Serum osmolality elevated at 304 -Uric acid within normal limits -Will follow with daily BMPs -Strict I's and O's (11) Hypertension Status: Acute Plan: Continue Coreg. Hydralazine when necessary. Continue losartan Amlodipine discontinued currently (12) Anxiety and depression Status: Acute Plan: -Continue home medications as follows: -Trazodone 100 mg by mouth daily -Sertraline 100 mg by mouth daily (13) BPH (benign prostatic hyperplasia) Status: Acute Plan: -History of BPH -Patient states history of using Flomax but not on current list of medications -Will consider starting Flomax if patient has symptoms (14) Severe sepsis Status: Resolved Plan: Septic on admission On Ceftarolin IV as above Repeat blood cultures negative to date Abx History: -Vancomycin 1250mg IV Q12h with pharmacy consult and Zosyn 3.375mg IV Q6h (dc ) -Azithromycin 500 mg by mouth every 24 hours started on 09/01. Dc'd on 09/07 (15) FEN/DVT PPX/GI PPX Status: Acute Plan: Fluids: IV fluids discontinued Electrolytes: Will monitor and replace as needed Nutrition: Heart healthy diet DVT Prophylaxis: SCDs, heparin discontinued due to thrombocytopenia GI Prophylaxis: Protonix IV 40 mg daily (Rupali Eddy MD R1) Problem Qualifiers (1) Aortic stenosis: Qualified Code: I35.0 - Aortic valve stenosis, unspecified etiology (2) Pneumonia: Qualified Code: J18.9 - Pneumonia of both lungs due to infectious organism, unspecified part of lung (3) Diabetes: (4) Hypertension: Qualified Code: I10 - Essential hypertension Rupali Eddy MD R1 Sep 09, 2016 13:56 She Harris MD Sep 10, 2016 10:39
--- NOTE | 2016-09-09 13:57 | HHI.FPPN ---
Objective Vitals Vital Signs Date Time Temp Pulse Resp B/P Pulse Ox O2 Delivery O2 Flow Rate FiO2 09/09/16 08:00 92 Non-Rebreather 15.00 09/09/16 08:00 90 09/09/16 07:28 94 Partial Rebreather 12.00 09/09/16 06:00 88 09/09/16 04:00 98.3 80 27 167/72 90 09/09/16 04:00 90 Non-Rebreather 15.00 09/09/16 04:00 80 09/09/16 02:11 95 Partial Rebreather 12.00 09/09/16 02:00 79 09/09/16 01:15 96 50 09/09/16 00:00 77 09/09/16 00:00 96 Bi-Pap 09/09/16 00:00 98.8 77 33 190/76 96 09/08/16 22:39 93 50 09/08/16 22:00 80 09/08/16 20:00 82 09/08/16 20:00 96 Non-Rebreather 15.00 09/08/16 20:00 98.5 80 18 176/73 96 09/08/16 19:22 93 Partial Rebreather 12.00 09/08/16 18:00 78 09/08/16 16:00 98.0 78 18 149/60 93 09/08/16 16:00 75 09/08/16 16:00 94 Non-Rebreather 09/08/16 15:55 94 10.00 09/08/16 14:00 74 I/O 09/08/16 09/08/16 09/08/16 09/09/16 09/09/16 09/09/16 07:00 15:00 23:00 07:00 15:00 23:00 Intake Total 249 ml 1128 ml 663 ml 265 ml Output Total 3800 ml 3750 ml 3800 ml 1750 ml Balance -3551 ml -2622 ml -3137 ml -1485 ml Intake Oral 90 ml 1020 ml 500 ml 100 ml IV Total 159 ml 108 ml 163 ml 165 ml Output Urine Total 3800 ml 3750 ml 3800 ml 1750 ml # Bowel Movements 0 2 1 0 Result Diagram: 09/09/16 0352 09/09/16 0352 Objective Remarks Gen.: Lying in bed, partial nonrebreather in place, satting 100%. Head: Normocephalic. Atraumatic. EENT: Pupils equal round and reactive to light. Nose without drainage. Airway intact. Cardiovascular: Regular rate and rhythm. Systolic murmur heard best in the aortic area Respiratory: Much improved aeration in lungs bilaterally Abdomen: Soft, nontender, nondistended. No peritoneal signs. Musculoskeletal: No gross deformities. No edema. Skin: No obvious rashes or erythema. Neuro: Sensory and motor grossly intact. Cranial nerves II through XII grossly intact. Psych: Smiles when awake, appropriately interacts with examiner A/P Assessment and Plan 71-year-old male who presented with a 5-day history of shortness of breath and nonproductive cough. ACS rule out positive for NSTEMI. Patient has a history of COPD and was admitted with sepsis with cardiology consultation for NSTEMI. Developed respiratory distress on 09/04 and was transferred to the ICU with critical care consult. Currently tolerating BiPAP and nonrebreather. Cardiology to perform left heart catheter when clinically better. Pulmonology on board. Nephrology consulted for PHILIPPE. Hematology consulted due to thrombocytopenia. Discharge Planning Pending clinical improvement Problem List: (1) Respiratory distress Status: Acute Plan: Improving. On partial nonrebreather in the ICU -On Bumex drip -Critical care managing -Solu-Medrol 40 mg every 12 hours -DuoNeb's every 6 hours (2) NSTEMI (non-ST elevated myocardial infarction) Status: Acute Plan: -Patient with elevated troponins to 1.[address] elevations in V1 V3. -Cardiology following -Left heart catheter when clinically able to tolerate procedure (3) Aortic stenosis Status: Acute Plan: -Cardiothoracic surgery consulted -Cardiology and cardiothoracic surgery to discuss plans going forward -Will need to optimize medical management for the infectious process prior to performing any procedures -Pulmonology consulted given high surgical risk- appreciate recommendations (4) Pneumonia Status: Acute Plan: -Sputum culture growing strep pneumo sensitive to vancomycin and Levaquin , intermediately sensitive to ceftriaxone -Antibiotics changed to Ceftarolin 300 mg IV every 12 on 09/07 (5) CHF due to valvular disease Status: Acute Plan: Echo performed on 09/02 showed EF of 5055 percent. Aortic valve with moderate to severe stenosis. -Coreg 3.125 mg by mouth every 12 hours -Bumex drip per nephrology -BiPAP or nonrebreather per critical care (6) PHILIPPE (acute kidney injury) Status: Resolved Plan: -Likely prerenal in origin -Improving, creatinine 1.52 today compared to 2.07 on 09/07 -Nephrology on board (7) Thrombocytopenia Status: Acute Plan: -Platelets down to 77 today compared to 83 on 09/07 -Hematology consulted -Suspect ITP versus DIC -Heparin subcutaneous discontinued -HIT, hepatitis, HIV panels pending -Abdominal ultrasound on 09/07 shows heterogeneous hepatic echo texture consistent with chronic liver disease, splenomegaly, mild to moderate ascites -Continue to monitor (8) Diabetes Status: Acute Plan: Patient's home regimen is NPH 25 units every morning and 50 units daily at bedtime -Require 24 units SSI in the last 24 hours -Continue Levemir 35 units in the a.m. and 30 units at night -SSI -Adjust insulin regimen as needed (9) COPD exacerbation Status: Acute Plan: Patient with known COPD and [id number] history of smoking Albuterol every 2 hours when necessary DuoNeb nebs every 4 hours scheduled Solu-Medrol 60 mg every 8 hours (10) Hyponatremia Status: Acute Plan: -Pseudohyponatremia vs SIADH vs some element of both -Serum osmolality elevated at 304 -Uric acid within normal limits -Will follow with daily BMPs -Strict I's and O's (11) Hypertension Status: Acute Plan: Continue Coreg. Hydralazine when necessary. Continue losartan Amlodipine discontinued currently (12) Anxiety and depression Status: Acute Plan: -Continue home medications as follows: -Trazodone 100 mg by mouth daily -Sertraline 100 mg by mouth daily (13) BPH (benign prostatic hyperplasia) Status: Acute Plan: -History of BPH -Patient states history of using Flomax but not on current list of medications -Will consider starting Flomax if patient has symptoms (14) Severe sepsis Status: Resolved Plan: Septic on admission On Ceftarolin IV as above Repeat blood cultures negative to date Abx History: -Vancomycin 1250mg IV Q12h with pharmacy consult and Zosyn 3.375mg IV Q6h (dc ) -Azithromycin 500 mg by mouth every 24 hours started on 09/01. Dc'd on 09/07 (15) FEN/DVT PPX/GI PPX Status: Acute Plan: Fluids: IV fluids discontinued Electrolytes: Will monitor and replace as needed Nutrition: Heart healthy diet DVT Prophylaxis: SCDs, heparin discontinued due to thrombocytopenia GI Prophylaxis: Protonix IV 40 mg daily Problem Qualifiers (1) Aortic stenosis: Qualified Code: I35.0 - Aortic valve stenosis, unspecified etiology (2) Pneumonia: Qualified Code: J18.9 - Pneumonia of both lungs due to infectious organism, unspecified part of lung (3) Diabetes: (4) Hypertension: Qualified Code: I10 - Essential hypertension Rupali Eddy MD R1 Sep 09, 2016 13:56
--- NOTE | 2016-09-09 18:36 | HHI.PR ---
Subjective Remarks 71 YOWM with Resp insuf, COPD,Lung infilt On 6 LNC No fever Bumex dose decresed at BS Developed AF with RVR On Amiodarone drip. Objective Vital Signs Vital Signs Date Time Temp Pulse Resp B/P Pulse Ox O2 Delivery O2 Flow Rate FiO2 09/09/16 18:00 70 09/09/16 16:32 95 Nasal Cannula 6.00 09/09/16 16:00 97.9 71 22 125/80 98 09/09/16 16:00 97 Simple Mask 09/09/16 16:00 71 09/09/16 15:59 96 Simple Mask 7.00 09/09/16 14:00 90 09/09/16 12:00 98.4 136 19 92/59 98 09/09/16 12:00 136 09/09/16 12:00 92 Non-Rebreather 12.00 09/09/16 10:00 90 09/09/16 08:00 98.4 82 23 149/107 97 09/09/16 08:00 92 Non-Rebreather 15.00 09/09/16 08:00 90 09/09/16 07:28 94 Partial Rebreather 12.00 09/09/16 06:00 88 09/09/16 04:00 98.3 80 27 167/72 90 09/09/16 04:00 90 Non-Rebreather 15.00 09/09/16 04:00 80 09/09/16 02:11 95 Partial Rebreather 12.00 09/09/16 02:00 79 09/09/16 01:15 96 50 09/09/16 00:00 77 09/09/16 00:00 96 Bi-Pap 09/09/16 00:00 98.8 77 33 190/76 96 09/08/16 22:39 93 50 09/08/16 22:00 80 09/08/16 20:00 82 09/08/16 20:00 96 Non-Rebreather 15.00 09/08/16 20:00 98.5 80 18 176/73 96 09/08/16 19:22 93 Partial Rebreather 12.00 I/O 09/08/16 09/08/16 09/08/16 09/09/16 09/09/16 09/09/16 07:00 15:00 23:00 07:00 15:00 23:00 Intake Total 249 ml 1128 ml 663 ml 265 ml 799 ml Output Total 3800 ml 3750 ml 3800 ml 1750 ml 2050 ml Balance -3551 ml -2622 ml -3137 ml -1485 ml -1251 ml Intake Oral 90 ml 1020 ml 500 ml 100 ml 360 ml IV Total 159 ml 108 ml 163 ml 165 ml 439 ml Output Urine Total 3800 ml 3750 ml 3800 ml 1750 ml 2050 ml # Bowel Movements 0 2 1 0 0 Result Diagram: 09/09/1635109/09/16351 Objective Remarks GENERAL: Obese WM, mild sob SKIN: Warm and dry. HEAD: Normocephalic. EYES: No scleral icterus. No injection or drainage. NECK: Supple, trachea midline. No JVD or lymphadenopathy. CARDIOVASCULAR: Regular rate and rhythm without murmurs, gallops, or rubs. RESPIRATORY: Breath sounds equal bilaterally. No accessory muscle use. GASTROINTESTINAL: Abdomen soft, non-tender, nondistended. MUSCULOSKELETAL: No cyanosis, or edema. BACK: Nontender without obvious deformity. No CVA tenderness. A/P Assessment and Plan Resp insuff COPD Lung infilt DM Ch. Pain PLAN: Cont Abx IV Solumedrol Supplement 02 and wean 02 Aerosol nebs Monitor BS Bumex drip, Monitor lytes BIPAP prn Amiodarone drip Kai Escobedo MD Sep 09, 2016 18:36
[2016-09-09] MEDS: traZODone HCL 100 MG TAB PO SCH (20:18)
[2016-09-10] VITALS (17 sets, daily range): BP systolic 107–152; BP diastolic 48–89; PULSE 63–76; RESP 13–28; TEMP 97.9–98.3; O2SAT 90–99
[2016-09-10] MEDS: CEFTAROLINE INJ 600 MG in SODIUM CHLORIDE 0.9% INJ 100 ML IV SCH ×2 (01:31→11:57)
[2016-09-10] MEDS: LORazepam 2 MG/ML VIAL IV PUSH PRN (03:12)
[2016-09-10] MEDS: INSULIN ASPART SUPPLEMENTAL SCALE SQ SCH ×4 (06:00→18:00)
[2016-09-10 06:07] LABS: AUTOMATED NEUTROPHIL # 7.6 TH/MM3 (1.8-7.7); BASOPHIL % 0.1 % (0.0-2.0); EOSINOPHIL # 0.1 TH/MM3 (0-0.4); EOSINOPHIL % 0.8 % (0.0-4.0); HEMATOCRIT 34.4 % (39.0-51.0); LYMPH % 10.6 % (9.0-44.0); MEAN CELL VOLUME 81.7 FL (80.0-100.0); MEAN CORPUSCULAR HEMOGLOBIN 27.5 PG (27.0-34.0); MEAN CORPUSCULAR HGB CONC 33.7 % (32.0-36.0); MONO % 5.9 % (0.0-8.0); NEUT % 82.6 % (16.0-70.0); PLATELET COUNT 79 TH/MM3 (150-450); RED CELL DISTRIBUTION WIDTH 15.9 % (11.6-17.2); WHITE BLOOD COUNT 9.2 TH/MM3 (4.0-11.0)
[2016-09-10 06:13] LABS: HEMO FLAGS AUTO DIFF
[2016-09-10] MEDS: DEXTROSE 50% IN WATER 50 ML VIAL(D50) IV PUSH PRN (06:23)
[2016-09-10] MEDS: LEVOTHYROXINE SODIUM 50 MCG TAB PO SCH (06:23)
[2016-09-10 06:56] LABS: PLATELET ESTIMATE SMEAR LOW (NORMAL); PLATELET MORPHOLOGY NORMAL (NORMAL); SCAN/DIFF AUTO DIFF CONFIRMED
[2016-09-10 06:58] LABS: ALKALINE PHOSPHATASE 147 U/L (45-117); ALT (GPT) 60 U/L (12-78); ANION GAP 7 MEQ/L (5-15); AST (GOT) 38 U/L (15-37); BICARBONATE 43.2 MEQ/L (21.0-32.0); BLOOD UREA NITROGEN 45 MG/DL (7-18); CHLORIDE 85 MEQ/L (98-107); GLOMERULAR FILTRATION RATE 59 ML/MIN (>89); MAGNESIUM 2.2 MG/DL (1.5-2.5); POTASSIUM 3.3 MEQ/L (3.5-5.1); SODIUM (NA) 135 MEQ/L (136-145); TOTAL BILIRUBIN ADULT 0.7 MG/DL (0.2-1.0)
[2016-09-10] MEDS ORDERED: INSULIN DETEMIR 100 UNITS/ML VIAL SQ SCH (07:00)
--- NOTE | 2016-09-10 07:43 | PD.CARD.PN ---
Subjective Subjective Remarks sleeping, difficult to arouse Objective Vital Signs / I&O Vital Signs Date Time Temp Pulse Resp B/P Pulse Ox O2 Delivery O2 Flow Rate FiO2 09/10/16 06:41 96 Nasal Cannula 6.00 09/10/16 06:00 64 09/10/16 04:19 98 50 09/10/16 04:00 67 09/10/16 04:00 97.9 67 19 137/81 99 09/10/16 04:00 99 Bi-Pap 60 09/10/16 02:00 66 09/10/16 01:18 95 60 09/10/16 00:00 63 09/10/16 00:00 95 Bi-Pap 60 09/10/16 00:00 98.0 63 13 111/55 95 09/09/16 22:25 95 60 09/09/16 22:23 15 09/09/16 22:00 65 09/09/16 20:00 97.4 71 27 154/66 98 09/09/16 20:00 98 Partial Non-Rebreather 12.00 09/09/16 20:00 68 09/09/16 19:20 95 Partial Rebreather 12.00 09/09/16 18:00 70 09/09/16 16:32 95 Nasal Cannula 6.00 09/09/16 16:00 97.9 71 22 125/80 98 09/09/16 16:00 97 Simple Mask 09/09/16 16:00 71 09/09/16 15:59 96 Simple Mask 7.00 09/09/16 14:00 90 09/09/16 12:00 98.4 136 19 92/59 98 09/09/16 12:00 136 09/09/16 12:00 92 Non-Rebreather 12.00 09/09/16 10:00 90 09/09/16 08:00 98.4 82 23 149/107 97 09/09/16 08:00 92 Non-Rebreather 15.00 09/09/16 08:00 90 I/O 09/09/16 09/09/16 09/09/16 09/10/16 09/10/16 09/10/16 07:00 15:00 23:00 07:00 15:00 23:00 Intake Total 265 ml 799 ml 454 ml 471 ml Output Total 1750 ml 2050 ml 650 ml 650 ml Balance -1485 ml -1251 ml -196 ml -179 ml Intake Oral 100 ml 360 ml 250 ml 200 ml IV Total 165 ml 439 ml 204 ml 271 ml Output Urine Total 1750 ml 2050 ml 650 ml 650 ml # Bowel Movements 0 0 0 0 Physical Exam GENERAL: Well-nourished, well-developed patient in no apparent distress. NECK: No JVD. No carotid bruit. CARDIOVASCULAR: Regular rate and rhythm. S1/S2 no rub or gallop. II/ STEVE LSB RESPIRATORY: No accessory muscle use. rales to auscultation. Breath sounds equal bilaterally. GASTROINTESTINAL: Abdomen soft, non-tender, nondistended. MUSCULOSKELETAL: Extremities without clubbing, cyanosis, or edema. Laboratory Laboratory Tests Test 09/10/16 04:48 White Blood Count 9.2 TH/MM3 Red Blood Count 4.20 MIL/MM3 Hemoglobin 11.6 GM/DL Hematocrit 34.4 % Mean Corpuscular Volume 81.7 FL Mean Corpuscular Hemoglobin 27.5 PG Mean Corpuscular Hemoglobin 33.7 % Concent Red Cell Distribution Width 15.9 % Platelet Count 79 TH/MM3 Mean Platelet Volume 9.3 FL Neutrophils (%) (Auto) 82.6 % Lymphocytes (%) (Auto) 10.6 % Monocytes (%) (Auto) 5.9 % Eosinophils (%) (Auto) 0.8 % Basophils (%) (Auto) 0.1 % Neutrophils # (Auto) 7.6 TH/MM3 Lymphocytes # (Auto) 1.0 TH/MM3 Monocytes # (Auto) 0.5 TH/MM3 Eosinophils # (Auto) 0.1 TH/MM3 Basophils # (Auto) 0.0 TH/MM3 CBC Comment AUTO DIFF Differential Comment AUTO DIFF CONFIRMED Platelet Estimate LOW Platelet Morphology Comment NORMAL Red Cell Morphology Comment NORMAL Sodium Level 135 MEQ/L Potassium Level 3.3 MEQ/L Chloride Level 85 MEQ/L Carbon Dioxide Level 43.2 MEQ/L Anion Gap 7 MEQ/L Blood Urea Nitrogen 45 MG/DL Creatinine 1.22 MG/DL Estimat Glomerular Filtration 59 ML/MIN Rate Random Glucose 98 MG/DL Calcium Level 8.8 MG/DL Phosphorus Level 4.3 MG/DL Magnesium Level 2.2 MG/DL Total Bilirubin 0.7 MG/DL Aspartate Amino Transf 38 U/L (AST/SGOT) Alanine Aminotransferase 60 U/L (ALT/SGPT) Alkaline Phosphatase 147 U/L Total Protein 6.0 GM/DL Albumin 2.9 GM/DL Assessment and Plan Problem List: (1) NSTEMI (non-ST elevated myocardial infarction) (2) Aortic stenosis (3) Congestive heart failure (CHF) (4) Hypertension Assessment and Plan NSTEMI - no chest pain. [facility] probably Tuesday if his respiratory and renal status remains improved - moderate to severe mean gradient 20 mmHg and valve area 0.88 cm2 ARF - creatine normal HTN - blood pressure well controlled PNA - conitnue ABX and supplemental oxygen. Continue weaning oxygen as tolerated hypokalemia - replete Problem Qualifiers (1) Aortic stenosis: Qualified Code: I35.0 - Aortic valve stenosis, unspecified etiology (2) Congestive heart failure (CHF): (3) Hypertension: Qualified Code: I10 - Essential hypertension Bandar Yu Sep 10, 2016 07:43
[2016-09-10] MEDS: CHLORHEXIDINE 0.12% (ORAL KIT) 15 ML CUP MT SCH ×2 (08:00→20:00)
--- NOTE | 2016-09-10 08:38 | HHI.CCPN ---
Subjective Remarks/Hospital Course The patient is a 71-year-old male with past medical history significant for COPD, aortic stenosis, hypertension and diabetes who presented to the emergency department with progressive shortness of breath and nonproductive cough for last 5 days. He was diagnosed and admitted to service on with [id number] [place], COPD exacerbation and probable pneumonia. He had a previous heart catheterization in 2014, was told at that time he needed to have aortic valve replacement. He was started on IV antibiotics with Rocephin and azithromycin and also was placed on IV steroids and DuoNeb breathing treatment for probable COPD exacerbation. All the cultures so far negative, also negative for influenza A and B, negative for Streptococcus and Legionella antigen. Cardiology was consulted, and echo showed moderate to severe aortic stenosis. Cardiothoracic surgery was also consulted and is following, plan for cardiac catheterization this Tuesday. A Halicat was called today as the patient was increasingly lethargic with increased dyspnea and hypoxia. He desaturated to the 70% when RN attempted to move him. Chest x-ray showed bilateral pulmonary edema worsening compared to admission. He was moved to the ICU and critical care medicine was consulted. I evaluated the patient in ICU. He is tachypneic on 100% nonrebreather. Examination revealed bilateral crackles. 60 mg of IV Lasix stat given and patient was ordered to be placed on BiPAP at 06/16. BNP was 658 SUBJECT 09/05/16: Patient did not tolerate BiPAP overnight. Currently remains on partial nonrebreather. Urine output more than 6 L in 24 hours. He developed atrial flutter with RVR, was placed on esmolol which I have changed to Cardizem. Chest x-ray shows interval improvement in my review 09/06/16: Remains on pNRB. sputum cx with strep pneumo. Urine out put diminishing. 1L bolus given with adequate response. Bilateral lung infiltrate. Discussed with Dr. Dudley. Will hold off cath until Reps failure/ALI improves and renal failure improves 09.07 Patient is on BIPAP 06/16 with FIO2 65%. Afebrile. 09/08 Patient is off BIPAP on Bumex drip 2mg/hr with UO 7.6L in 24 hrs. Afebrile feeling better. Renal function improving with Cr 1.52 from 2.07. 09/09 Patient is on partial rebreather with good sats. Afebrile. Renal function improving with Cr: 1.09 from 1.52. Remains on Bumex drip down 0.5mg/hr. 09/10 Patient was placed on Amio drip yesterday . Afebrile. Off Bumex drip. Objective Vital Signs Date Time Temp Pulse Resp B/P Pulse Ox O2 Delivery O2 Flow Rate FiO2 09/10/16 06:41 96 Nasal Cannula 6.00 09/10/16 06:00 64 09/10/16 04:19 50 09/10/16 04:00 97.9 19 137/81 Intake and Output 09/09/16 09/09/16 09/10/16 08:00 16:00 00:00 Intake Total 265 ml 799 ml 454 ml Output Total 1750 ml 2050 ml 650 ml Balance -1485 ml -1251 ml -196 ml Result Diagram: 09/10/16 0448 09/10/16 0448 Other Results Laboratory Tests Test 09/10/16 04:48 White Blood Count 9.2 TH/MM3 Red Blood Count 4.20 MIL/MM3 Hemoglobin 11.6 GM/DL Hematocrit 34.4 % Mean Corpuscular Volume 81.7 FL Mean Corpuscular Hemoglobin 27.5 PG Mean Corpuscular Hemoglobin 33.7 % Concent Red Cell Distribution Width 15.9 % Platelet Count 79 TH/MM3 Mean Platelet Volume 9.3 FL Neutrophils (%) (Auto) 82.6 % Lymphocytes (%) (Auto) 10.6 % Monocytes (%) (Auto) 5.9 % Eosinophils (%) (Auto) 0.8 % Basophils (%) (Auto) 0.1 % Neutrophils # (Auto) 7.6 TH/MM3 Lymphocytes # (Auto) 1.0 TH/MM3 Monocytes # (Auto) 0.5 TH/MM3 Eosinophils # (Auto) 0.1 TH/MM3 Basophils # (Auto) 0.0 TH/MM3 CBC Comment AUTO DIFF Differential Comment AUTO DIFF CONFIRMED Platelet Estimate LOW Platelet Morphology Comment NORMAL Red Cell Morphology Comment NORMAL Sodium Level 135 MEQ/L Potassium Level 3.3 MEQ/L Chloride Level 85 MEQ/L Carbon Dioxide Level 43.2 MEQ/L Anion Gap 7 MEQ/L Blood Urea Nitrogen 45 MG/DL Creatinine 1.22 MG/DL Estimat Glomerular Filtration 59 ML/MIN Rate Random Glucose 98 MG/DL Calcium Level 8.8 MG/DL Phosphorus Level 4.3 MG/DL Magnesium Level 2.2 MG/DL Total Bilirubin 0.7 MG/DL Aspartate Amino Transf 38 U/L (AST/SGOT) Alanine Aminotransferase 60 U/L (ALT/SGPT) Alkaline Phosphatase 147 U/L Total Protein 6.0 GM/DL Albumin 2.9 GM/DL Imaging Last Impressions Chest X-Ray 09/09/16 0000 Signed Impressions: Service Date/Time: September 09:06 - CONCLUSION: 1. Diffuse bilateral infiltrates improved when compared to previous. Bonifacio Rogel MD Abdomen Ultrasound 09/07/16 0000 Signed Impressions: Service Date/Time: Wednesday, September 07, 2016 16:45 - CONCLUSION: Heterogeneous hepatic echotexture consistent with chronic liver disease. Splenomegaly Mild to moderate ascites Mildly thickened gallbladder wall without evidence of gallstones. No evidence of hydronephrosis. Isidro Oliver MD Upper Extremity Ultrasound 09/06/16 0000 Signed Impressions: Service Date/Time: Tuesday, September 06, 2016 20:43 - CONCLUSION: No evidence of DVT. Isidro Oliver MD Chest CT 09/05/16 0000 Signed Impressions: Service Date/Time: Monday, September 05, 2016 15:37 - CONCLUSION: 1. Cardiomegaly with diffuse ground glass densities and consolidation likely pulmonary edema and/or pneumonia. 2. Small bilateral pleural effusions. 3. Prominent lymphadenopathy in the mediastinum. Cameron Archer MD Objective Remarks Gen: 71-year-old male lying in ICU bed on BIPAP Head: Normocephalic. Atraumatic. EENT: Pupils equal round and reactive to light. Cardiovascular: S1-S2 normal. Systolic murmur heard in the aortic area Respiratory: Bilateral rhonchi and bibasilar crackles Abdomen: Soft, nontender, nondistended. No peritoneal signs. Musculoskeletal: No gross deformities. No edema. Skin: No obvious rashes or erythema. Neuro: Alert awake oriented 3. No focal deficits A/P Assessment and Plan NEURO: -Minimize sedation, as needed morphine for pain, anxiety RESP: Acute hypoxemic respiratory failure requiring BiPAP ARDS Pneumococcal pneumonia COPD exacerbation -Continue with oxygen keep sat >92% -BiPAP PRN for resp distress, - Solu-Medrol 40mg Q12 and DuoNeb breathing treatments -EzPAP, Acapella every 6 hours CV: Severe aortic stenosis CHF NSTEMI -Monitor HR and BP keep MAP>65mmHg -Continue aspirin, Coreg, and pravastatin. -Cardiothoracic surgery and cardiology Dr. Dudley is following -[facility] with resp status and renal function improves. GI: -Elevated LFT's..trending down -On PO diet -Protonix for GI prophylaxis -Monitor LFT's, US abdomen: Heterogeneous hepatic echotexture consistent with chronic liver disease. Splenomegaly Mild to moderate ascites Mildly thickened gallbladder wall without evidence of gallstones. No evidence of hydronephrosis. : Acute kidney injury..improving Hyponatremia..resolving -Monitor renal function, I/O's, avoid nephrotoxins. Off Bumex drip will need K replacement today -Renal- Dr. Roa. Renal US: No hydronephrosis -Give Diamox 250mg IV x1 ID: Sepsis Pneumococcal pneumonia -Continue abx per ID (Teflaro).Monitor for signs of infections ( Fever, WBC) -Sputum culture positive for strep pneumo. Influenza negative HEME: -Monitor CBC, CMP, coags. Hep PLT ab positive, follow up on TIGIST -Heme is following ENDO: Type 2 diabetes Hypothyroidism -Sliding-scale insulin.Hold Levemir -Continue Synthroid 50 mcg daily. TSH: 0.373 PROPH: -Bilateral lower extremity SCDs. Protonix for GI prophylaxis. Heparin SQ on hold for thrombocytopenia LINES: -Utilize peripheral IVs, Level 3 Gerry Vivas MD Sep 10, 2016 08:38
--- NOTE | 2016-09-10 09:04 | HHI.FPPN ---
Subjective Remarks Sleepy. Arouses to sternal rub but then falls back asleep. Discussed case with Dr. Stewart. Off BUMEX drip. Currently on amiodarone drip per cardiology. Satting 95% on 5 L nasal cannula. (Sae Perry MD R2) Objective Vitals Vital Signs Date Time Temp Pulse Resp B/P Pulse Ox O2 Delivery O2 Flow Rate FiO2 09/10/16 06:41 96 Nasal Cannula 6.00 09/10/16 06:00 64 09/10/16 04:19 98 50 09/10/16 04:00 67 09/10/16 04:00 97.9 67 19 137/81 99 09/10/16 04:00 99 Bi-Pap 60 09/10/16 02:00 66 09/10/16 01:18 95 60 09/10/16 00:00 63 09/10/16 00:00 95 Bi-Pap 60 09/10/16 00:00 98.0 63 13 111/55 95 09/09/16 22:25 95 60 09/09/16 22:23 15 09/09/16 22:00 65 09/09/16 20:00 97.4 71 27 154/66 98 09/09/16 20:00 98 Partial Non-Rebreather 12.00 09/09/16 20:00 68 09/09/16 19:20 95 Partial Rebreather 12.00 09/09/16 18:00 70 09/09/16 16:32 95 Nasal Cannula 6.00 09/09/16 16:00 97.9 71 22 125/80 98 09/09/16 16:00 97 Simple Mask 09/09/16 16:00 71 09/09/16 15:59 96 Simple Mask 7.00 09/09/16 14:00 90 09/09/16 12:00 98.4 136 19 92/59 98 09/09/16 12:00 136 09/09/16 12:00 92 Non-Rebreather 12.00 09/09/16 10:00 90 I/O 09/09/16 09/09/16 09/09/16 09/10/16 09/10/16 09/10/16 07:00 15:00 23:00 07:00 15:00 23:00 Intake Total 265 ml 799 ml 454 ml 471 ml Output Total 1750 ml 2050 ml 650 ml 650 ml Balance -1485 ml -1251 ml -196 ml -179 ml Intake Oral 100 ml 360 ml 250 ml 200 ml IV Total 165 ml 439 ml 204 ml 271 ml Output Urine Total 1750 ml 2050 ml 650 ml 650 ml # Bowel Movements 0 0 0 0 (Sae Perry MD R2) Result Diagram: 09/10/16 0448 09/10/16 0448 Imaging Last 48 hours Impressions Chest X-Ray 09/09/16 0000 Signed Impressions: Service Date/Time: September 09:06 - CONCLUSION: 1. Diffuse bilateral infiltrates improved when compared to previous. Bonifacio Rogel MD Objective Remarks Gen.: Lying in bed, nasal cannula in place Head: Normocephalic. Atraumatic. EENT: Pupils equal round and reactive to light. Nose without drainage. Airway intact. Cardiovascular: Regular rate and rhythm. 2/6 systolic ejection murmur along left sternal border. Respiratory: Much improved aeration in lungs bilaterally Abdomen: Soft, nontender, nondistended. No peritoneal signs. Musculoskeletal: No gross deformities. No edema. Skin: No obvious rashes or erythema. Neuro: Sensory and motor grossly intact. Cranial nerves II through XII grossly intact. Psych: Smiles when awake, appropriately interacts with examiner (Sae Perry MD R2) A/P Assessment and Plan 71-year-old male who presented with a 5-day history of shortness of breath and nonproductive cough. ACS rule out positive for NSTEMI. Patient has a history of COPD and was admitted with sepsis with cardiology consultation for NSTEMI. Developed respiratory distress on 09/04 and was transferred to the ICU with critical care consult. Currently tolerating BiPAP vs nonrebreather vs nasal cannula. Cardiology to perform left heart catheter when clinically better. Pulmonology on board. Nephrology consulted for PHILIPPE. Hematology consulted due to thrombocytopenia. Discharge Planning Pending clinical improvement (Sae Perry MD R2) Attending Attestation Patient seen and examined with the resident team. Case reviewed and discussed Agree with plan of care as discussed with me and documented in the resident note. dw Dr. Stewart and Dr. Dudley (She Harris MD) Problem List: (1) Respiratory distress Status: Acute Plan: Improving. On nonrebreather/partial nonrebreather/NC in the ICU -DC Bumex drip -Critical care managing -Solu-Medrol 40 mg every 12 hours -DuoNebs every 6 hours -I's and O's -Daily weights (2) NSTEMI (non-ST elevated myocardial infarction) Status: Acute Plan: -Patient with elevated troponins to 1.[address] elevations in V1 V3. -Cardiology following -Left heart catheter when clinically able to tolerate procedure (3) Aortic stenosis Status: Acute Plan: -Cardiothoracic surgery consulted -Cardiology and cardiothoracic surgery to discuss plans going forward -Will need to optimize medical management for the infectious process prior to performing any procedures -Pulmonology consulted given high surgical risk- appreciate recommendations (4) Pneumonia Status: Acute Plan: Infectious disease consult. - Ceftarolin 300 mg IV every 12 hours (started on 09/07-) (5) CHF due to valvular disease Status: Acute Plan: Echo performed on 09/02 showed EF of 5055 percent. -Aortic valve with moderate to severe stenosis. -Coreg 3.125 mg by mouth every 12 hours -BiPAP or nonrebreather per critical care -Amiodarone drip per cardiology (6) PHILIPPE (acute kidney injury) Status: Resolved Plan: -Likely prerenal in origin -Resolved, creatinine 1.09, WNL today -Nephrology on board (7) Thrombocytopenia Status: Acute Plan: -Platelets improved to 83 today -Hematology consulted -Suspect ITP versus DIC -Heparin subcutaneous discontinued -HIT positive, but likely false positive, TIGIST pending -Hepatitis panel negative -Abdominal ultrasound on 09/07 shows heterogeneous hepatic echo texture consistent with chronic liver disease, splenomegaly, mild to moderate ascites -Continue to monitor (8) Diabetes Status: Acute Plan: Morning glucose 98; patient is in critical condition and is not eating very well. Patient's home regimen is NPH 25 units every morning and 50 units daily at bedtime -Currently holding Levemir per critical care. -SSI -Adjust insulin regimen as needed (9) COPD exacerbation Status: Acute Plan: Patient with known COPD and [id number] history of smoking Albuterol every 2 hours when necessary DuoNeb nebs every 4 hours scheduled Solu-Medrol 60 mg every 8 hours (10) Hyponatremia Status: Acute Plan: -Pseudohyponatremia vs SIADH vs some element of both -Serum osmolality elevated at 304 -Uric acid within normal limits -Will follow with daily BMPs -Strict I's and O's (11) Hypertension Status: Acute Plan: Continue Coreg. Hydralazine when necessary. Continue losartan Amlodipine drip per cardiology (12) Anxiety and depression Status: Acute Plan: -Continue home medications as follows: -Trazodone 100 mg by mouth daily -Sertraline 100 mg by mouth daily (13) BPH (benign prostatic hyperplasia) Status: Acute Plan: -History of BPH -Patient states history of using Flomax but not on current list of medications -Will consider starting Flomax if patient has symptoms (14) Severe sepsis Status: Resolved Plan: Septic on admission On Ceftarolin IV as above Repeat blood cultures negative to date Abx History: -Vancomycin 1250mg IV Q12h with pharmacy consult and Zosyn 3.375mg IV Q6h (dc ) -Azithromycin 500 mg by mouth every 24 hours started on 09/01. Dc'd on 09/07 (15) FEN/DVT PPX/GI PPX Status: Acute Plan: Fluids: IV fluids discontinued Electrolytes: Will monitor and replace as needed Nutrition: Heart healthy diet DVT Prophylaxis: SCDs, heparin discontinued due to thrombocytopenia GI Prophylaxis: Protonix IV 40 mg daily (Sae Perry MD R2) Problem Qualifiers (1) Aortic stenosis: Qualified Code: I35.0 - Aortic valve stenosis, unspecified etiology (2) Pneumonia: Qualified Code: J18.9 - Pneumonia of both lungs due to infectious organism, unspecified part of lung (3) Diabetes: (4) Hypertension: Qualified Code: I10 - Essential hypertension Sae Perry MD R2 Sep 10, 2016 09:04 She Harris MD Sep 10, 2016 10:39
[2016-09-10] MEDS: SERTRALINE HCL 100 MG TAB PO SCH (09:35)
[2016-09-10] MEDS: methylPREDNISolone SOD SUCC 40 MG/1 ML VIAL IV SCH ×2 (09:35→20:09)
[2016-09-10] MEDS: CARVEDILOL 6.25 MG TAB PO SCH ×2 (09:35→20:08)
[2016-09-10] MEDS: PRAVASTATIN SOD 40 MG TAB PO SCH (09:35)
[2016-09-10] MEDS: ASPIRIN 325 MG TAB PO SCH (09:35)
[2016-09-10] MEDS: FERROUS SULFATE 325 MG (65 MG ELEMENTAL IRON) TAB PO SCH ×2 (09:35→20:08)
[2016-09-10] MEDS: PREGABALIN 75 MG CAP PO SCH ×2 (09:35→20:08)
[2016-09-10] MEDS: busPIRone HCL 10 MG TAB PO SCH ×2 (09:35→20:08)
[2016-09-10] MEDS: DOCUSATE SODIUM 50 MG/SENNA 8.6 MG TAB PO SCH (09:35)
[2016-09-10] MEDS: PRIMIDONE 50 MG TAB PO SCH ×3 (09:35→18:08)
[2016-09-10] MEDS: POTASSIUM CHLORIDE 20 MEQ CONTROLLED RELEASE TAB PO SCH (09:36)
[2016-09-10 09:39] LABS: BLOOD GAS BASE EXCESS 16.5 mmol/L (-2-2); BLOOD GAS CARBOXYHEMOGLOBIN 2.2 % (0-4); BLOOD GAS HCO3 42 mmol/L (22-26); BLOOD GAS O2 HGB SATURATION 86 % (90-100); BLOOD GAS OXYGEN CONTENT 13.9 Vol % (12.0-20.0); BLOOD GAS PCO2 62 mmHg (38-42); BLOOD GAS PO2 60 mmHg (61-120); BLOOD GAS TOTAL HGB 11.4 G/DL (12.0-16.0); TEMP CORR TO 98.6
[2016-09-10 09:40] LABS: CRITICAL VALUE YES; DRAW SITE LT RADIAL; LITER FLOW 6 L/M; NUMBER OF ARTERIAL PUNCTURES 1; OXYGEN DEVICE NASAL CANNULA; STAT YES; ULNAR PULSE PRESENT
--- NOTE | 2016-09-10 10:03 | HHI.NPPN ---
Subjective Complaints: Confused, Shortness of Breath General Problems: Edema Renal Failure: Chronic, Acute Interval History Went into A fib RVR, on amiodarone gtt. Creatinine slightly higher. Good urine output. ABG drawn, he is hypoxic. (Prachi Palencia) Review of Systems General Constitutional: Fatigue (Prachi Palencia) Respiratory Lungs: SOB (Prachi Palencia) Cardiovascular Cardiac: Edema (Prachi Palencia) Objective Data Data 09/09/16 09/10/16 19:00 07:00 Intake Total 799 ml 925 ml Output Total 2050 ml 1300 ml Balance -1251 ml -375 ml Intake Oral 360 ml 450 ml IV Total 439 ml 475 ml Output Urine Total 2050 ml 1300 ml # Bowel Movements 0 0 Vital Signs Date Time Temp Pulse Resp B/P Pulse Ox O2 Delivery O2 Flow Rate FiO2 09/10/16 06:41 96 Nasal Cannula 6.00 09/10/16 06:00 64 09/10/16 04:19 98 50 09/10/16 04:00 67 09/10/16 04:00 97.9 67 19 137/81 99 09/10/16 04:00 99 Bi-Pap 60 09/10/16 02:00 66 09/10/16 01:18 95 60 09/10/16 00:00 63 09/10/16 00:00 95 Bi-Pap 60 09/10/16 00:00 98.0 63 13 111/55 95 09/09/16 22:25 95 60 09/09/16 22:23 15 09/09/16 22:00 65 09/09/16 20:00 97.4 71 27 154/66 98 09/09/16 20:00 98 Partial Non-Rebreather 12.00 09/09/16 20:00 68 09/09/16 19:20 95 Partial Rebreather 12.00 09/09/16 18:00 70 09/09/16 16:32 95 Nasal Cannula 6.00 09/09/16 16:00 97.9 71 22 125/80 98 09/09/16 16:00 97 Simple Mask 09/09/16 16:00 71 09/09/16 15:59 96 Simple Mask 7.00 09/09/16 14:00 90 09/09/16 12:00 98.4 136 19 92/59 98 09/09/16 12:00 136 09/09/16 12:00 92 Non-Rebreather 12.00 (Prachi Palencia) -: 09/10/16 0448 09/10/16 0448 Tubes & Lines: [place] Drip Comment bumex (Prachi Palencia) Physical Exam General Appearance: Well Developed, Well Nourished, No Acute Distress, Comfortable ( Prachi Palencia) Throat Throat Exam: Oral Mucosa Pitman & Moist (Prachi Palencia) Pulmonary Resp Exam: Breath Sounds Equal, Crackles, Decreased Bases (Prachi Palencia) Cardiology CV Exam: Regular, Good Perfusion (Prachi Palencia) Gastrointestinal/Abdomen GI Exam: Soft, Non-Tender, Bowel Sounds Present (Prachi Palencia) Genitourinary Exam: Clear Urine (Prachi Palencia) Musculoskeletal MS Exam: Joints Intact, Normal Gait, Normal Tone (Prachi Palencia) Integumentary Skin Exam: Clear, Warm, Dry, Intact (Prachi Palencia) Extremeties Extremities Exam: Pedal Pulses Palpable, Moderate Edema (Prachi Palencia) Neurologic Neuro Exam: Alert, Awake, Speech Clear, Moving All Extremities (Prachi Palencia) Psychiatric Psych Exam: Appropriate Responses (Prachi Palencia) Assessment/Plan Discussed Condition With: Patient, Relative Assessment Summary: PHILIPPE/Acute Renal Failure Problem List: (1) PHILIPPE (acute kidney injury) Plan: Likely ATN, due to hypoperfusion injury (sepsis, hypotension, A fib RVR) renal function slightly worse but overall stable K is acceptable fluid status improved, on Diamox; excellent urine output Avoid nephrotoxic agents. avoid IVF daily renal panel (2) Congestive heart failure (CHF) Plan: negative fluid volume balance on Diamox monitor (3) Diabetes Plan: continue insulin therapy monitor glucose, goal 140-180 mg/dL (4) Hypertension Plan: not on pressors monitor BP, medicate per admitting team (5) Severe sepsis Plan: from strep pneumonia ID following, on Teflaro (6) Aortic stenosis Plan: CT following plan for heart cath when clinically improved (7) A-fib Plan: on Amiodarone gtt (Prachi Palencia) Plan patient was seen and examined. Non oliguric. Renal function is stable. Replace potassium. (Gentry Roa MD) Problem Qualifiers (1) Congestive heart failure (CHF): (2) Diabetes: (3) Hypertension: Qualified Code: I10 - Essential hypertension (4) Aortic stenosis: Qualified Code: I35.0 - Aortic valve stenosis, unspecified etiology Prachi Palencia Sep 10, 2016 10:03 Gentry Roa MD Sep 10, 2016 15:08
[2016-09-10] MEDS: AMIODARONE INJ 450 MG in DEXTROSE 5% IN WATE(EXCEL) INJ 241 ML IV SCH ×2 (17:20)
[2016-09-10] MEDS: RESP: ALBUTEROL 2.5 MG/3 ML NEB (PRN) NEB (18:05)
--- NOTE | 2016-09-10 18:59 | HHI.PR ---
Subjective Remarks 71 YOWM with Resp insuf, COPD,Lung infilt On 6 LNC No fever at BS On Amiodarone drip. Off Bumex drip Used BIPAP all night Objective Vital Signs Vital Signs Date Time Temp Pulse Resp B/P Pulse Ox O2 Delivery O2 Flow Rate FiO2 09/10/16 16:37 96 50 09/10/16 16:30 95 Bi-Pap 60 09/10/16 16:00 69 09/10/16 16:00 98.2 69 19 131/59 09/10/16 16:00 91 Nasal Cannula 6.00 09/10/16 14:00 76 09/10/16 12:25 94 Nasal Cannula 6.00 09/10/16 12:00 70 09/10/16 12:00 98.3 70 20 119/71 90 09/10/16 12:00 90 Nasal Cannula 6.00 09/10/16 10:45 16 09/10/16 10:00 71 09/10/16 08:00 96 Nasal Cannula 6.00 09/10/16 08:00 65 09/10/16 08:00 98.3 65 18 107/48 96 09/10/16 06:41 96 Nasal Cannula 6.00 09/10/16 06:00 64 09/10/16 04:19 98 50 09/10/16 04:00 67 09/10/16 04:00 97.9 67 19 137/81 99 09/10/16 04:00 99 Bi-Pap 60 09/10/16 02:00 66 09/10/16 01:18 95 60 09/10/16 00:00 63 09/10/16 00:00 95 Bi-Pap 60 09/10/16 00:00 98.0 63 13 111/55 95 09/09/16 22:25 95 60 09/09/16 22:00 65 09/09/16 20:00 97.4 71 27 154/66 98 09/09/16 20:00 98 Partial Non-Rebreather 12.00 09/09/16 20:00 68 09/09/16 19:20 95 Partial Rebreather 12.00 I/O 09/09/16 09/09/16 09/09/16 09/10/16 09/10/16 09/10/16 07:00 15:00 23:00 07:00 15:00 23:00 Intake Total 265 ml 799 ml 454 ml 471 ml 962 ml Output Total 1750 ml 2050 ml 650 ml 650 ml 600 ml Balance -1485 ml -1251 ml -196 ml -179 ml 362 ml Intake Oral 100 ml 360 ml 250 ml 200 ml 720 ml IV Total 165 ml 439 ml 204 ml 271 ml 242 ml Output Urine Total 1750 ml 2050 ml 650 ml 650 ml 600 ml # Bowel Movements 0 0 0 0 Result Diagram: 09/10/1644709/10/16447 Objective Remarks GENERAL: Obese WM, mild sob SKIN: Warm and dry. HEAD: Normocephalic. EYES: No scleral icterus. No injection or drainage. NECK: Supple, trachea midline. No JVD or lymphadenopathy. CARDIOVASCULAR: Regular rate and rhythm without murmurs, gallops, or rubs. RESPIRATORY: Breath sounds equal bilaterally. No accessory muscle use. GASTROINTESTINAL: Abdomen soft, non-tender, nondistended. MUSCULOSKELETAL: No cyanosis, or edema. BACK: Nontender without obvious deformity. No CVA tenderness. A/P Assessment and Plan Resp insuff COPD Lung infilt DM Ch. Pain PLAN: Cont Abx IV Solumedrol Supplement 02 and wean 02 Aerosol nebs Monitor BS BIPAP prn Amiodarone Kai Goodwin MD Sep 10, 2016 18:59
[2016-09-10] MEDS: traZODone HCL 100 MG TAB PO SCH (20:08)
[2016-09-10] MEDS: RESP: ALBUTEROL 2.5 MG/IPRATROPIUM 0.5 MG NEB (SCH) NEB ×2 (20:23→23:32)
--- NOTE | 2016-09-10 23:27 | PD.ONC.PN ---
Subjective Subjective Remarks seen earlier in the day. late note entry drowsy/opens eyes on amiodarone drip no bleeding/no LE swelling. d/w rn Objective Data Date Time Temp Pulse Resp B/P Pulse Ox O2 Delivery O2 Flow Rate FiO2 09/10/16 22:00 64 09/10/16 21:41 16 09/10/16 20:22 96 Partial Rebreather 15.00 09/10/16 20:00 74 09/10/16 20:00 98.3 74 28 152/89 97 09/10/16 20:00 96 Partial Non-Rebreather 12.00 09/10/16 18:00 71 09/10/16 16:37 96 50 09/10/16 16:30 95 Bi-Pap 60 09/10/16 16:00 69 09/10/16 16:00 98.2 69 19 131/59 09/10/16 16:00 91 Nasal Cannula 6.00 09/10/16 14:00 76 09/10/16 12:25 94 Nasal Cannula 6.00 09/10/16 12:00 70 09/10/16 12:00 98.3 70 20 119/71 90 09/10/16 12:00 90 Nasal Cannula 6.00 09/10/16 10:00 71 09/10/16 08:00 96 Nasal Cannula 6.00 09/10/16 08:00 65 09/10/16 08:00 98.3 65 18 107/48 96 09/10/16 06:41 96 Nasal Cannula 6.00 09/10/16 06:00 64 09/10/16 04:19 98 50 09/10/16 04:00 67 09/10/16 04:00 97.9 67 19 137/81 99 09/10/16 04:00 99 Bi-Pap 60 09/10/16 02:00 66 09/10/16 01:18 95 60 09/10/16 00:00 63 09/10/16 00:00 95 Bi-Pap 60 09/10/16 00:00 98.0 63 13 111/55 95 09/10/16 09/10/16 09/10/16 07:00 15:00 23:00 Intake Total 471 ml 962 ml 372 ml Output Total 650 ml 600 ml 1850 ml Balance -179 ml 362 ml -1478 ml Result Diagram: 09/10/16 0448 09/10/16 0448 Laboratory Results Laboratory Tests Test 09/10/16 09/10/16 04:48 09:25 White Blood Count 9.2 TH/MM3 Red Blood Count 4.20 MIL/MM3 Hemoglobin 11.6 GM/DL Hematocrit 34.4 % Mean Corpuscular Volume 81.7 FL Mean Corpuscular Hemoglobin 27.5 PG Mean Corpuscular Hemoglobin 33.7 % Concent Red Cell Distribution Width 15.9 % Platelet Count 79 TH/MM3 Mean Platelet Volume 9.3 FL Neutrophils (%) (Auto) 82.6 % Lymphocytes (%) (Auto) 10.6 % Monocytes (%) (Auto) 5.9 % Eosinophils (%) (Auto) 0.8 % Basophils (%) (Auto) 0.1 % Neutrophils # (Auto) 7.6 TH/MM3 Lymphocytes # (Auto) 1.0 TH/MM3 Monocytes # (Auto) 0.5 TH/MM3 Eosinophils # (Auto) 0.1 TH/MM3 Basophils # (Auto) 0.0 TH/MM3 CBC Comment AUTO DIFF Differential Comment AUTO DIFF CONFIRMED Platelet Estimate LOW Platelet Morphology Comment NORMAL Red Cell Morphology Comment NORMAL Sodium Level 135 MEQ/L Potassium Level 3.3 MEQ/L Chloride Level 85 MEQ/L Carbon Dioxide Level 43.2 MEQ/L Anion Gap 7 MEQ/L Blood Urea Nitrogen 45 MG/DL Creatinine 1.22 MG/DL Estimat Glomerular Filtration 59 ML/MIN Rate Random Glucose 98 MG/DL Calcium Level 8.8 MG/DL Phosphorus Level 4.3 MG/DL Magnesium Level 2.2 MG/DL Total Bilirubin 0.7 MG/DL Aspartate Amino Transf 38 U/L (AST/SGOT) Alanine Aminotransferase 60 U/L (ALT/SGPT) Alkaline Phosphatase 147 U/L Total Protein 6.0 GM/DL Albumin 2.9 GM/DL Blood Gas Puncture Site LT RADIAL Blood Gas Patient Temperature 98.6 Blood Gas HCO3 42 mmol/L Blood Gas Base Excess 16.5 mmol/L Blood Gas Oxygen Saturation 86 % Arterial Blood pH 7.44 Arterial Blood Partial 62 mmHg Pressure CO2 Arterial Blood Partial 60 mmHg Pressure O2 Arterial Blood Oxygen Content 13.9 Vol % Arterial Blood 2.2 % Carboxyhemoglobin Arterial Blood Methemoglobin 1.0 % Blood Gas Hemoglobin 11.4 G/DL Oxygen Delivery Device NASAL CANNULA Blood Gas Liter Flow 6 L/M Culture Results Microbiology Date/Time Procedure Status Source Growth 09/08/16 11:40 Stool Occult Blood (CASSIDY) - Final Complete Stool Stool HEMOCCULT NEGATIVE Administered Medications Medications (Trade) Dose Ordered Sig/Dev Route PRN Reason Start Time Stop Time Status Last Admin Dose Admin IV Flush (NS Flush) 2 ml UNSCH PRN IVF FLUSH AFTER USING IV ACCESS 08/31/16 11:15 09/06/16 07:45 Buspirone HCl (Buspar) 10 mg BID PO 08/31/16 21:00 09/10/16 20:08 Levothyroxine Sodium (Synthroid) 50 mcg DAILY@06 PO 09/01/16 06:00 09/10/16 06:23 Pravastatin Sodium (Pravachol) 40 mg DAILY PO 09/01/16 09:00 09/10/16 09:35 Pregabalin (Lyrica) 150 mg BID PO 08/31/16 21:00 09/10/16 20:08 Primidone (Mysoline) 100 mg TID PO 08/31/16 18:00 09/10/16 18:08 Sertraline HCl (Zoloft) 100 mg DAILY PO 09/01/16 09:00 09/10/16 09:35 Trazodone HCl (Desyrel) 100 mg HS PO 08/31/16 21:00 09/10/16 20:08 Dextrose (D50w (Vial) Inj) 25 ml UNSCH PRN IV PUSH HYPOGLYCEMIA-SEE COMMENTS 08/31/16 14:00 09/10/16 06:23 Aspirin (Aspirin) 325 mg DAILY PO 09/01/16 09:00 09/10/16 09:35 Heparin Sodium (Porcine) (Heparin Inj) 5,000 units Q8HR SQ 09/01/16 14:00 Hold 09/06/16 13:27 Alprazolam (Xanax) 0.5 mg Q12HR PRN PO ANXIETY 09/01/16 14:45 09/08/16 12:58 Miscellaneous Information Patient in critical care unit? Ass... [id number] XX 09/04/16 20:00 09/04/16 20:00 Morphine Sulfate (Morphine Inj) 2 mg Q4H PRN IV PAIN 1 TO 10 09/05/16 11:30 09/06/16 16:06 Ferrous Sulfate (Ferrous Sulfate) 325 mg BID PO 09/06/16 09:00 09/10/16 20:08 Carvedilol (Coreg) 6.25 mg Q12HR PO 09/06/16 09:00 09/10/16 20:08 Senna/Docusate Sodium (Shantelle-Colace) 2 tab DAILY PO 09/06/16 17:45 09/10/16 09:35 Lorazepam (Ativan Inj) 0.25 mg Q6H PRN IV PUSH ANXIETY 09/06/16 17:45 09/10/16 03:12 Insulin Aspart (NovoLOG SUPPLEMENTAL SCALE) 1 Q6H SQ 09/07/16 12:00 09/10/16 18:00 Insulin Detemir (Levemir Inj) 30 units HS SQ 09/07/16 21:00 Hold 09/09/16 20:18 Methylprednisolone Sodium Succinate (SoluMEDROL INJ) 40 mg Q12H IV 09/08/16 09:00 09/10/16 20:09 Hydralazine HCl 10 mg 10 mg Q6H PRN IV SBP> OR = 160, DBP> OR = 100 09/09/16 03:15 09/09/16 04:10 Amiodarone HCl 450 mg/Dextrose 250 ml @ 0 mls/hr CONTINUOUS IV 09/09/16 12:00 09/10/16 17:20 Ceftaroline Fosamil/Sodium Chloride (Teflaro Inj/NS Inj) 100 ml @ 100 mls/hr Q12H IV 09/10/16 00:00 09/10/16 11:57 Potassium Chloride (KCl) 20 meq DAILY PO 09/10/16 09:00 09/10/16 09:36 Objective Remarks GENERAL: acutely ill SKIN: Warm and dry. NECK: Supple, trachea midline. No JVD or lymphadenopathy. LYMPHATIC: No adenopathy. CARDIOVASCULAR: Regular rate and rhythm without murmurs. RESPIRATORY: Breath sounds equal bilaterally. GASTROINTESTINAL: Abdomen soft, non-tender, nondistended. EXTREMITIES: No cyanosis, or edema. Assessment/Plan Problem List: (1) Thrombocytopenia Status: Acute Plan: --multifactorial d/t sepsis +/- medication effect (i.e. 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 --possibility of DIC --HIT positive--likely false positive, will await TIGIST --Shabbir negative --LDH/haptoglobin both elevated --Abdominal u/s showed chronic liver disease + splenomegaly (2) Normocytic anemia Status: Acute Plan: --haptoglobin/LDH both elevated, which is not consistent with hemolysis --Shabbir negative --stool Hemoccult negative (3) Severe sepsis Status: Resolved Plan: --+pneumonia --on antibiotic (4) Transaminitis Status: Acute Plan: --hepatitis panel negative (5) Aortic stenosis Status: Acute Plan: --Severe aortic stenosis with CHF --currently being managed by cardiology and CT surgery. Assessment 71y/o male admitted with NSTEMI, COPD exacerbation, and pneumonia. Hematology consulted for acute thrombocytopenia. history of COPD, hypertension, diabetes aortic stenosis Plan PLT count stable. no bleeding High O2 requirement. - D-dimer elevated. Would recommend getting a CTA Doppler U/S LE Awaiting TIGIST results. d/w family Problem Qualifiers (1) Aortic stenosis: Qualified Code: I35.0 - Aortic valve stenosis, unspecified etiology Cesar Vieyra MD Sep 10, 2016 23:27
[2016-09-11] VITALS (16 sets, daily range): BP systolic 92–173; BP diastolic 60–75; PULSE 64–91; RESP 16–29; TEMP 96.1–98.5; O2SAT 90–100
[2016-09-11] MEDS: INSULIN ASPART SUPPLEMENTAL SCALE SQ SCH ×2 (00:04→06:00)
[2016-09-11] MEDS: LORazepam 2 MG/ML VIAL IV PUSH PRN (00:05)
[2016-09-11] MEDS: CEFTAROLINE INJ 600 MG in SODIUM CHLORIDE 0.9% INJ 100 ML IV SCH ×3 (00:05→23:47)
[2016-09-11] MEDS ORDERED: IOHEXOL 350 MG/ML 10 ML VIAL (for RAD DIAG) IV ONE (01:11)
--- NOTE | 2016-09-11 01:27 | RADRPT ---
EXAM DATE/TIME: 09/11/2016 01:05 [facility] COMPARISON: CHEST SINGLE AP, September 09, 2016, 9:06. INDICATIONS : Hypoxia with elevated d-dimer. IV CONTRAST: 65 cc Omnipaque 350 (iohexol) IV RADIATION DOSE: 20.92 CTDIvol (mGy) MEDICAL HISTORY : Hypertension. Chronic obstructive pulmonary disease. Cardiovascular diseaseDiabetes SURGICAL HISTORY : None. ENCOUNTER: Initial ACUITY: 1 day PAIN SCALE: 0/10 LOCATION: chest TECHNIQUE: Volumetric scanning of the chest was performed using a pulmonary embolism protocol MIP images were re constructed. Using automated exposure control and adjustment of the mA and/or kV according to patien t size, radiation dose was kept as low as reasonably achievable to obtain optimal diagnostic quality images. FINDINGS: PULMONARY ARTERIES: No filling defects to suggest pulmonary embolism LUNGS: Diffuse coarse interstitial and alveolar parenchymal disease. PLEURAE: Small bilateral effusions. MEDIASTINUM: There is good visualization of the great vessels of the middle mediastinum. No evidence of mediastin al or hilar adenopathy/mass. MUSCULOSKELETAL: Within normal limits for patient age. MISCELLANEOUS: Cirrhotic liver appearance with ascites and splenomegaly. CONCLUSION: No evidence of pulmonary embolism. Frank Hardin MD on September 11, 2016 at 1:22 Board Certified Radiologist. This report was verified electronically.
[2016-09-11] MEDS: RESP: ALBUTEROL 2.5 MG/IPRATROPIUM 0.5 MG NEB (SCH) NEB ×5 (03:31→19:51)
[2016-09-11 06:34] LABS: ALT (GPT) 54 U/L (12-78); ANION GAP 7 MEQ/L (5-15); AST (GOT) 33 U/L (15-37); BICARBONATE 34.4 MEQ/L (21.0-32.0); BLOOD UREA NITROGEN 31 MG/DL (7-18); CHLORIDE 92 MEQ/L (98-107); GLOMERULAR FILTRATION RATE 73 ML/MIN (>89); POTASSIUM 3.8 MEQ/L (3.5-5.1); SODIUM (NA) 133 MEQ/L (136-145)
[2016-09-11 06:35] LABS: ALKALINE PHOSPHATASE 194 U/L (45-117); TOTAL BILIRUBIN ADULT 0.7 MG/DL (0.2-1.0)
[2016-09-11 06:37] LABS: AUTOMATED NEUTROPHIL # 5.9 TH/MM3 (1.8-7.7); BASOPHIL % 0.1 % (0.0-2.0); EOSINOPHIL % 0.6 % (0.0-4.0); HEMATOCRIT 32.7 % (39.0-51.0); LYMPH % 10.2 % (9.0-44.0); LYMPHOCYTE # 0.7 TH/MM3 (1.0-4.8); MEAN CELL VOLUME 81.9 FL (80.0-100.0); MEAN CORPUSCULAR HEMOGLOBIN 27.3 PG (27.0-34.0); MEAN CORPUSCULAR HGB CONC 33.4 % (32.0-36.0); MONO % 5.8 % (0.0-8.0); NEUT % 83.3 % (16.0-70.0); PLATELET COUNT 55 TH/MM3 (150-450); RED BLOOD COUNT 3.99 MIL/MM3 (4.50-5.90); RED CELL DISTRIBUTION WIDTH 15.5 % (11.6-17.2); WHITE BLOOD COUNT 7.1 TH/MM3 (4.0-11.0)
[2016-09-11 06:48] LABS: HEMO FLAGS AUTO DIFF
[2016-09-11] MEDS: LEVOTHYROXINE SODIUM 50 MCG TAB PO SCH (07:34)
--- NOTE | 2016-09-11 07:51 | HHI.FPPN ---
Subjective Remarks Pt is doing okay but back on partial nonrebreather due to desaturations on nasal canula. During the exam, he had a coughing fit that caused him to desaturate to the low 80s, his oxygen was dialed up and he was fine after that. He later stated that he was very hungry. Denies chest pain. Per night nurse, he coughed all night. On Amiodarone drip. (Eko,Rupali Stewart MD R1) Objective Vitals Vital Signs Date Time Temp Pulse Resp B/P Pulse Ox O2 Delivery O2 Flow Rate FiO2 09/11/16 06:00 67 09/11/16 04:00 64 09/11/16 04:00 97 Partial Non-Rebreather 12.00 09/11/16 04:00 98.4 64 16 120/60 97 09/11/16 02:00 66 09/11/16 00:00 71 09/11/16 00:00 98.2 71 21 142/64 96 09/11/16 00:00 96 Partial Non-Rebreather 15.00 09/10/16 22:00 64 09/10/16 21:41 16 09/10/16 20:22 96 Partial Rebreather 15.00 09/10/16 20:00 74 09/10/16 20:00 98.3 74 28 152/89 97 09/10/16 20:00 96 Partial Non-Rebreather 12.00 09/10/16 18:00 71 09/10/16 16:37 96 50 09/10/16 16:30 95 Bi-Pap 60 09/10/16 16:00 69 09/10/16 16:00 98.2 69 19 131/59 09/10/16 16:00 91 Nasal Cannula 6.00 09/10/16 14:00 76 09/10/16 12:25 94 Nasal Cannula 6.00 09/10/16 12:00 70 09/10/16 12:00 98.3 70 20 119/71 90 09/10/16 12:00 90 Nasal Cannula 6.00 09/10/16 10:00 71 09/10/16 08:00 96 Nasal Cannula 6.00 09/10/16 08:00 65 09/10/16 08:00 98.3 65 18 107/48 96 I/O 3/3/17 309/10/16 09/11/16 09/11/16 09/11/16 07:00 15:00 23:00 07:00 15:00 23:00 Intake Total 471 ml 962 ml 372 ml 444 ml Output Total 650 ml 600 ml 1850 ml 1100 ml Balance -179 ml 362 ml -1478 ml -656 ml Intake Oral 200 ml 720 ml 240 ml 200 ml IV Total 271 ml 242 ml 132 ml 244 ml Output Urine Total 650 ml 600 ml 1850 ml 1100 ml # Bowel Movements 0 0 0 (Rupali Eddy MD R1) Result Diagram: 09/11/1645709/11/16457 Objective Remarks Gen.: Lying in bed, non partial non-rebreather Head: Normocephalic. Atraumatic. EENT: Pupils equal round and reactive to light. Nose without drainage. Airway intact. Cardiovascular: Regular rate and rhythm. 2/6 systolic ejection murmur along left sternal border. Respiratory: Much improved aeration in lungs bilaterally Abdomen: Soft, nontender, nondistended. No peritoneal signs. Musculoskeletal: No gross deformities. No edema. Skin: No obvious rashes or erythema. Neuro: Sensory and motor grossly intact. Cranial nerves II through XII grossly intact. Psych: Smiles when awake, appropriately interacts with examiner (Rupali Eddy MD R1) A/P Assessment and Plan 71-year-old male who presented with a 5-day history of shortness of breath and nonproductive cough. ACS rule out positive for NSTEMI. Patient has a history of COPD and was admitted with sepsis with cardiology consultation for NSTEMI. Developed respiratory distress on 09/04 and was transferred to the ICU with critical care consult. Currently tolerating BiPAP vs nonrebreather vs nasal cannula. Cardiology to perform left heart catheterization when clinically better. Pulmonology on board. Nephrology consulted for PHILIPPE. Hematology consulted due to thrombocytopenia. Discharge Planning Pending clinical improvement (Rupali Eddy MD R1) Attending Attestation Patient seen and examined with the resident team. Case reviewed and discussed Agree with plan of care as discussed with me and documented in the resident note. (She Harris MD) Problem List: (1) Respiratory distress Status: Acute Plan: Improving. On nonrebreather/partial nonrebreather/NC in the ICU -DC Bumex drip -Critical care managing -Solu-Medrol 40 mg every 12 hours -DuoNebs every 6 hours -I's and O's -Daily weights (2) NSTEMI (non-ST elevated myocardial infarction) Status: Acute Plan: -Patient with elevated troponins to 1.[address] elevations in V1 V3. -Cardiology following -Left heart catheter when clinically able to tolerate procedure (3) Aortic stenosis Status: Acute Plan: -Cardiothoracic surgery consulted -Cardiology and cardiothoracic surgery to discuss plans going forward -Will need to optimize medical management for the infectious process prior to performing any procedures -Pulmonology consulted given high surgical risk- appreciate recommendations (4) Pneumonia Status: Acute Plan: Infectious disease consult. - Ceftarolin 300 mg IV every 12 hours (started on 09/07-) (5) CHF due to valvular disease Status: Acute Plan: Echo performed on 09/02 showed EF of 5055 percent. -Aortic valve with moderate to severe stenosis. -Coreg 3.125 mg by mouth every 12 hours -BiPAP or nonrebreather per critical care -Amiodarone drip per cardiology (6) PHILIPPE (acute kidney injury) Status: Acute Plan: -Likely prerenal in origin -Resolved, creatinine 1.09, WNL -Nephrology on board (7) Thrombocytopenia Status: Acute Plan: -Platelets dropped to 55 today 09/11 - dropped aspirin to 81mg daily -Hematology consulted -Suspect ITP versus DIC -Heparin subcutaneous discontinued -HIT positive, but likely false positive, TIGIST pending -Hepatitis panel negative -Abdominal ultrasound on 09/07 shows heterogeneous hepatic echo texture consistent with chronic liver disease, splenomegaly, mild to moderate ascites -Continue to monitor (8) Diabetes Status: Acute Plan: Morning glucose 98; patient is in critical condition and is not eating very well Patient's home regimen is NPH 25 units every morning and 50 units daily at bedtime -Currently holding Levemir per critical care -Continue SSI -Adjust insulin regimen as needed (9) COPD exacerbation Status: Acute Plan: Patient with known COPD and [id number] history of smoking Albuterol every 2 hours when necessary DuoNeb nebs every 4 hours scheduled Solu-Medrol 60 mg every 8 hours (10) Hyponatremia Status: Acute Plan: -Pseudohyponatremia vs SIADH vs some element of both -Serum osmolality elevated at 304 -Uric acid within normal limits -Will follow with daily BMPs -Strict I's and O's (11) Hypertension Status: Acute Plan: Continue Coreg. Hydralazine when necessary. Continue losartan Amlodipine drip per cardiology (12) Anxiety and depression Status: Acute Plan: -Continue home medications as follows: -Trazodone 100 mg by mouth daily -Sertraline 100 mg by mouth daily (13) BPH (benign prostatic hyperplasia) Status: Acute Plan: -History of BPH -Patient states history of using Flomax but not on current list of medications -Will consider starting Flomax if patient has symptoms (14) Severe sepsis Status: Resolved Plan: Septic on admission On Ceftarolin IV as above Repeat blood cultures negative to date Abx History: -Vancomycin 1250mg IV Q12h with pharmacy consult and Zosyn 3.375mg IV Q6h (dc ) -Azithromycin 500 mg by mouth every 24 hours started on 09/01. Dc'd on 09/07 (15) FEN/DVT PPX/GI PPX Status: Acute Plan: Fluids: IV fluids discontinued Electrolytes: Will monitor and replace as needed Nutrition: Heart healthy diet DVT Prophylaxis: SCDs, heparin discontinued due to thrombocytopenia GI Prophylaxis: Protonix IV 40 mg daily (Rupali Eddy MD R1) Problem Qualifiers (1) Aortic stenosis: Qualified Code: I35.0 - Aortic valve stenosis, unspecified etiology (2) Pneumonia: Qualified Code: J18.9 - Pneumonia of both lungs due to infectious organism, unspecified part of lung (3) Diabetes: (4) Hypertension: Qualified Code: I10 - Essential hypertension Rupali Eddy MD R1 Sep 11, 2016 07:50 She Harris MD Sep 13, 2016 16:42
--- NOTE | 2016-09-11 07:56 | HHI.CCPN ---
Subjective Remarks/Hospital Course The patient is a 71-year-old male with past medical history significant for COPD, aortic stenosis, hypertension and diabetes who presented to the emergency department with progressive shortness of breath and nonproductive cough for last 5 days. He was diagnosed and admitted to service on with [id number] SD, COPD exacerbation and probable pneumonia. He had a previous heart catheterization in 2014, was told at that time he needed to have aortic valve replacement. He was started on IV antibiotics with Rocephin and azithromycin and also was placed on IV steroids and DuoNeb breathing treatment for probable COPD exacerbation. All the cultures so far negative, also negative for influenza A and B, negative for Streptococcus and Legionella antigen. Cardiology was consulted, and echo showed moderate to severe aortic stenosis. Cardiothoracic surgery was also consulted and is following, plan for cardiac catheterization this Tuesday. A Halicat was called today as the patient was increasingly lethargic with increased dyspnea and hypoxia. He desaturated to the 70% when RN attempted to move him. Chest x-ray showed bilateral pulmonary edema worsening compared to admission. He was moved to the ICU and critical care medicine was consulted. I evaluated the patient in ICU. He is tachypneic on 100% nonrebreather. Examination revealed bilateral crackles. 60 mg of IV Lasix stat given and patient was ordered to be placed on BiPAP at 06/16. BNP was 658 SUBJECT 09/05/16: Patient did not tolerate BiPAP overnight. Currently remains on partial nonrebreather. Urine output more than 6 L in 24 hours. He developed atrial flutter with RVR, was placed on esmolol which I have changed to Cardizem. Chest x-ray shows interval improvement in my review 09/06/16: Remains on pNRB. sputum cx with strep pneumo. Urine out put diminishing. 1L bolus given with adequate response. Bilateral lung infiltrate. Discussed with Dr. Dudley. Will hold off cath until Reps failure/ALI improves and renal failure improves 09.07 Patient is on BIPAP 06/16 with FIO2 65%. Afebrile. 09/08 Patient is off BIPAP on Bumex drip 2mg/hr with UO 7.6L in 24 hrs. Afebrile feeling better. Renal function improving with Cr 1.52 from 2.07. 09/09 Patient is on partial rebreather with good sats. Afebrile. Renal function improving with Cr: 1.09 from 1.52. Remains on Bumex drip down 0.5mg/hr. 09/10 Patient was placed on Amio drip yesterday . Afebrile. Off Bumex drip. 09/11 No acute events overnight. Remains on Amio drip. On partial rebreather. CT chest last night showed no PE. Objective Vital Signs Date Time Temp Pulse Resp B/P Pulse Ox O2 Delivery O2 Flow Rate FiO2 09/11/16 06:00 67 09/11/16 04:00 97 Partial Non-Rebreather 12.00 09/11/16 04:00 98.4 16 120/60 09/10/16 16:37 50 Intake and Output 09/10/16 09/10/16 09/11/16 08:00 16:00 00:00 Intake Total 471 ml 962 ml 372 ml Output Total 650 ml 600 ml 1850 ml Balance -179 ml 362 ml -1478 ml Result Diagram: 09/11/16 0458 09/11/16 0458 Other Results Laboratory Tests Test 09/10/16 09/11/16 09:25 04:58 Blood Gas Puncture Site LT RADIAL Blood Gas Patient Temperature 98.6 Blood Gas HCO3 42 mmol/L Blood Gas Base Excess 16.5 mmol/L Blood Gas Oxygen Saturation 86 % Arterial Blood pH 7.44 Arterial Blood Partial 62 mmHg Pressure CO2 Arterial Blood Partial 60 mmHg Pressure O2 Arterial Blood Oxygen Content 13.9 Vol % Arterial Blood 2.2 % Carboxyhemoglobin Arterial Blood Methemoglobin 1.0 % Blood Gas Hemoglobin 11.4 G/DL Oxygen Delivery Device NASAL CANNULA Blood Gas Liter Flow 6 L/M White Blood Count 7.1 TH/MM3 Red Blood Count 3.99 MIL/MM3 Hemoglobin 10.9 GM/DL Hematocrit 32.7 % Mean Corpuscular Volume 81.9 FL Mean Corpuscular Hemoglobin 27.3 PG Mean Corpuscular Hemoglobin 33.4 % Concent Red Cell Distribution Width 15.5 % Platelet Count 55 TH/MM3 Mean Platelet Volume 9.9 FL Neutrophils (%) (Auto) 83.3 % Lymphocytes (%) (Auto) 10.2 % Monocytes (%) (Auto) 5.8 % Eosinophils (%) (Auto) 0.6 % Basophils (%) (Auto) 0.1 % Neutrophils # (Auto) 5.9 TH/MM3 Lymphocytes # (Auto) 0.7 TH/MM3 Monocytes # (Auto) 0.4 TH/MM3 Eosinophils # (Auto) 0.0 TH/MM3 Basophils # (Auto) 0.0 TH/MM3 CBC Comment AUTO DIFF Sodium Level 133 MEQ/L Potassium Level 3.8 MEQ/L Chloride Level 92 MEQ/L Carbon Dioxide Level 34.4 MEQ/L Anion Gap 7 MEQ/L Blood Urea Nitrogen 31 MG/DL Creatinine 1.01 MG/DL Estimat Glomerular Filtration 73 ML/MIN Rate Random Glucose 233 MG/DL Calcium Level 8.8 MG/DL Phosphorus Level 3.1 MG/DL Magnesium Level 2.0 MG/DL Total Bilirubin 0.7 MG/DL Aspartate Amino Transf 33 U/L (AST/SGOT) Alanine Aminotransferase 54 U/L (ALT/SGPT) Alkaline Phosphatase 194 U/L Total Protein 5.8 GM/DL Albumin 2.6 GM/DL Imaging Last Impressions CT Angiography 09/10/16 0000 Signed Impressions: Service Date/Time: Sunday, September 11, 2016 01:05 - CONCLUSION: No evidence of pulmonary embolism. Frank Hardin MD Chest X-Ray 09/09/16 0000 Signed Impressions: Service Date/Time: September 09:06 - CONCLUSION: 1. Diffuse bilateral infiltrates improved when compared to previous. Bonifacio Rogel MD Abdomen Ultrasound 09/07/16 0000 Signed Impressions: Service Date/Time: Wednesday, September 07, 2016 16:45 - CONCLUSION: Heterogeneous hepatic echotexture consistent with chronic liver disease. Splenomegaly Mild to moderate ascites Mildly thickened gallbladder wall without evidence of gallstones. No evidence of hydronephrosis. Isidro Oliver MD Upper Extremity Ultrasound 09/06/16 0000 Signed Impressions: Service Date/Time: Tuesday, September 06, 2016 20:43 - CONCLUSION: No evidence of DVT. Isidro Oliver MD Chest CT 09/05/16 0000 Signed Impressions: Service Date/Time: Monday, September 05, 2016 15:37 - CONCLUSION: 1. Cardiomegaly with diffuse ground glass densities and consolidation likely pulmonary edema and/or pneumonia. 2. Small bilateral pleural effusions. 3. Prominent lymphadenopathy in the mediastinum. Cameron Archer MD Objective Remarks Gen: 71-year-old male lying in ICU bed on BIPAP Head: Normocephalic. Atraumatic. EENT: Pupils equal round and reactive to light. Cardiovascular: S1-S2 normal. Systolic murmur heard in the aortic area Respiratory: Bilateral rhonchi and bibasilar crackles Abdomen: Soft, nontender, nondistended. No peritoneal signs. Musculoskeletal: No gross deformities. No edema. Skin: No obvious rashes or erythema. Neuro: Alert awake oriented 3. No focal deficits A/P Assessment and Plan NEURO: -Minimize sedation, as needed morphine for pain, anxiety RESP: Acute hypoxemic respiratory failure requiring BiPAP ARDS Pneumococcal pneumonia COPD exacerbation -Continue with oxygen keep sat >92% -BiPAP PRN for resp distress, - Solu-Medrol 40mg Q12 and DuoNeb breathing treatments -CTA chest last night showed no PE CV: Severe aortic stenosis CHF NSTEMI -Monitor HR and BP keep MAP>65mmHg -Continue aspirin, Coreg, and pravastatin. Wean off Amio drip. -Echo showed EF 50-55%, mod-severe -Cardiothoracic surgery and cardiology Dr. Dudley is following -[facility] possible Wednesday 09/13 GI: -Elevated LFT's..trending down -On PO diet -Protonix for GI prophylaxis -Monitor LFT's, US abdomen: Heterogeneous hepatic echotexture consistent with chronic liver disease. Splenomegaly Mild to moderate ascites Mildly thickened gallbladder wall without evidence of gallstones. No evidence of hydronephrosis. : Acute kidney injury..improving Hyponatremia..resolving -Monitor renal function, I/O's, avoid nephrotoxins. On KCL 20meq daily -Renal- Dr. Roa. Renal US: No hydronephrosis ID: Sepsis Pneumococcal pneumonia -Continue abx per ID (Teflaro).Monitor for signs of infections ( Fever, WBC) -Sputum culture positive for strep pneumo. Influenza negative HEME: -Monitor CBC, CMP, coags. Hep PLT ab positive, follow up on TIGIST -Heme is following ENDO: Type 2 diabetes Hypothyroidism -Increase SSI medium scale for glycemic control. -Continue Synthroid 50 mcg daily. TSH: 0.373 PROPH: -Bilateral lower extremity SCDs. Protonix for GI prophylaxis. Heparin SQ on hold for thrombocytopenia LINES: -Utilize peripheral IVs, Level 3 Ortega,Alaa MD Sep 11, 2016 07:56
[2016-09-11] MEDS ORDERED: GLUCAGON 1 MG/ML VIAL OTHER PRN (08:00)
[2016-09-11] MEDS: CHLORHEXIDINE 0.12% (ORAL KIT) 15 ML CUP MT SCH ×2 (08:00→20:00)
[2016-09-11] MEDS: INSULIN NovoLIN REGULAR SUPPLEMENTAL SCALE SQ SCH ×3 (08:00→21:13)
[2016-09-11] MEDS ORDERED: DEXTROSE 50% IN WATER 50 ML VIAL(D50) IV PUSH PRN (08:00)
[2016-09-11 09:02] LABS: PLATELET ESTIMATE SMEAR LOW (NORMAL); PLATELET MORPHOLOGY ENLARGED (NORMAL); SCAN/DIFF AUTO DIFF CONFIRMED
[2016-09-11] MEDS: DOCUSATE SODIUM 50 MG/SENNA 8.6 MG TAB PO SCH (09:19)
[2016-09-11] MEDS: methylPREDNISolone SOD SUCC 40 MG/1 ML VIAL IV SCH ×2 (09:19→21:11)
[2016-09-11] MEDS: busPIRone HCL 10 MG TAB PO SCH ×2 (09:20→21:12)
[2016-09-11] MEDS: ASPIRIN 325 MG TAB PO SCH (09:20)
[2016-09-11] MEDS: PRIMIDONE 50 MG TAB PO SCH ×3 (09:20→17:41)
[2016-09-11] MEDS: POTASSIUM CHLORIDE 20 MEQ CONTROLLED RELEASE TAB PO SCH (09:20)
[2016-09-11] MEDS: PREGABALIN 75 MG CAP PO SCH ×2 (09:20→21:12)
[2016-09-11] MEDS: SODIUM CHLORIDE 0.9% FLUSH 5 ML FLUSH IVF PRN (09:20)
[2016-09-11] MEDS: CARVEDILOL 6.25 MG TAB PO SCH ×2 (09:20→21:12)
[2016-09-11] MEDS: PRAVASTATIN SOD 40 MG TAB PO SCH (09:20)
[2016-09-11] MEDS: FERROUS SULFATE 325 MG (65 MG ELEMENTAL IRON) TAB PO SCH ×2 (09:20→21:11)
[2016-09-11] MEDS: SERTRALINE HCL 100 MG TAB PO SCH (09:20)
--- NOTE | 2016-09-11 12:24 | HHI.NPPN ---
Subjective Complaints: Confused, Shortness of Breath General Problems: Edema Renal Failure: Chronic, Acute Review of Systems General Constitutional: Fatigue Respiratory Lungs: SOB Cardiovascular Cardiac: Edema Objective Data Data 09/10/16 09/11/16 19:00 07:00 Intake Total 962 ml 816 ml Output Total 600 ml 2950 ml Balance 362 ml -2134 ml Intake Oral 720 ml 440 ml IV Total 242 ml 376 ml Output Urine Total 600 ml 2950 ml # Bowel Movements 0 Vital Signs Date Time Temp Pulse Resp B/P Pulse Ox O2 Delivery O2 Flow Rate FiO2 09/11/16 10:00 68 09/11/16 08:20 97 Partial Rebreather 09/11/16 08:00 96.1 70 26 157/67 100 09/11/16 08:00 100 Partial Non-Rebreather 12.00 09/11/16 08:00 70 09/11/16 06:00 67 09/11/16 04:00 64 09/11/16 04:00 97 Partial Non-Rebreather 12.00 09/11/16 04:00 98.4 64 16 120/60 97 09/11/16 02:00 66 09/11/16 00:00 71 09/11/16 00:00 98.2 71 21 142/64 96 09/11/16 00:00 96 Partial Non-Rebreather 15.00 09/10/16 22:00 64 09/10/16 21:41 16 09/10/16 20:22 96 Partial Rebreather 15.00 09/10/16 20:00 74 09/10/16 20:00 98.3 74 28 152/89 97 09/10/16 20:00 96 Partial Non-Rebreather 12.00 09/10/16 18:00 71 09/10/16 16:37 96 50 09/10/16 16:30 95 Bi-Pap 60 09/10/16 16:00 69 09/10/16 16:00 98.2 69 19 131/59 09/10/16 16:00 91 Nasal Cannula 6.00 09/10/16 14:00 76 09/10/16 12:25 94 Nasal Cannula 6.00 -: 09/11/16 0458 09/11/16 0458 Tubes & Lines: [place] Drip Comment bumex Physical Exam General Appearance: Well Developed, Well Nourished, No Acute Distress, Comfortable Throat Throat Exam: Oral Mucosa [place] & Moist Pulmonary Resp Exam: Breath Sounds Equal, Crackles, Decreased Bases Cardiology CV Exam: Regular, Good Perfusion Gastrointestinal/Abdomen GI Exam: Soft, Non-Tender, Bowel Sounds Present Genitourinary Exam: Clear Urine Musculoskeletal MS Exam: Joints Intact, Normal Gait, Normal Tone Integumentary Skin Exam: Clear, Warm, Dry, Intact Extremeties Extremities Exam: Pedal Pulses Palpable, Moderate Edema Neurologic Neuro Exam: Alert, Awake, Speech Clear, Moving All Extremities Psychiatric Psych Exam: Appropriate Responses Assessment/Plan Discussed Condition With: Patient, Relative Assessment Summary: PHILIPPE/Acute Renal Failure Problem List: (1) PHILIPPE (acute kidney injury) Plan: Likely ATN, due to hypoperfusion injury (sepsis, hypotension, A fib RVR) renal function improved Cr 1.01 Avoid nephrotoxic agents. Nephrology to sign off (2) Congestive heart failure (CHF) Plan: negative fluid volume balance on Diamox monitor (3) Diabetes Plan: continue insulin therapy monitor glucose, goal 140-180 mg/dL (4) Hypertension Plan: not on pressors monitor BP, medicate per admitting team (5) Severe sepsis Plan: from strep pneumonia ID following, on Teflaro (6) Aortic stenosis Plan: CT following plan for heart cath when clinically improved (7) A-fib Plan: on Amiodarone gtt Problem Qualifiers (1) Congestive heart failure (CHF): (2) Diabetes: (3) Hypertension: Qualified Code: I10 - Essential hypertension (4) Aortic stenosis: Qualified Code: I35.0 - Aortic valve stenosis, unspecified etiology Willem Peguero MD Sep 11, 2016 12:24
--- NOTE | 2016-09-11 14:03 | RADRPT ---
EXAM DATE/TIME: 09/11/2016 12:30 [facility] COMPARISON: No previous studies available for comparison. INDICATIONS : Bilateral leg swelling. MEDICAL HISTORY : Hypercholesterolemia. Hypertension. Chronic obstructive pulmonary disease. GERD. Arthritis. Diabetes. Liver disease. SURGICAL HISTORY : Bilateral knee replacement. ENCOUNTER: Initial ACUITY: 1 day PAIN SCORE: 3/10 LOCATION: Bilateral legs. TECHNIQUE: Venous ultrasound of the left and right leg was performed from the inguinal ligament to the proximal calf. Real-time, color Doppler and spectral tracing, compression and augmentation techniques were us ed. FINDINGS: RIGHT LEG: There is normal compressibility of the deep venous system from the inguinal region to the proximal ca lf. No echogenic clot is seen in the lumen of the common femoral, femoral, popliteal, and posterior tibial veins. There is a normal response of the venous system to proximal and distal augmentation an d respiration. LEFT LEG: There is normal compressibility of the deep venous system from the inguinal region to the proximal ca lf. No echogenic clot is seen in the lumen of the common femoral, femoral, popliteal, and posterior tibial veins. There is a normal response of the venous system to proximal and distal augmentation an d respiration. CONCLUSION: No DVT is identified within either lower extremity. Frank Young MD on September 11, 2016 at 14:01 Board Certified Radiologist. This report was verified electronically.
[2016-09-11] MEDS ORDERED: FUROSEMIDE 20 MG TAB PO ONE (16:00)
--- NOTE | 2016-09-11 16:13 | PD.CARD.PN ---
Subjective Subjective Remarks Alert without CV complaints. Still on high flow 02 support. Denies CP. Objective Vital Signs / I&O Vital Signs Date Time Temp Pulse Resp B/P Pulse Ox O2 Delivery O2 Flow Rate FiO2 09/11/16 14:00 74 09/11/16 13:06 92 High Flow Nasal Cannula 25.00 100 09/11/16 12:00 97.5 73 29 173/75 97 09/11/16 12:00 100 Nasal Cannula 12.00 09/11/16 12:00 73 09/11/16 10:00 68 09/11/16 08:20 97 Partial Rebreather 09/11/16 08:00 96.1 70 26 157/67 100 09/11/16 08:00 100 Partial Non-Rebreather 12.00 09/11/16 08:00 70 09/11/16 06:00 67 09/11/16 04:00 64 09/11/16 04:00 97 Partial Non-Rebreather 12.00 09/11/16 04:00 98.4 64 16 120/60 97 09/11/16 02:00 66 09/11/16 00:00 71 09/11/16 00:00 98.2 71 21 142/64 96 09/11/16 00:00 96 Partial Non-Rebreather 15.00 09/10/16 22:00 64 09/10/16 21:41 16 09/10/16 20:22 96 Partial Rebreather 15.00 09/10/16 20:00 74 09/10/16 20:00 98.3 74 28 152/89 97 09/10/16 20:00 96 Partial Non-Rebreather 12.00 09/10/16 18:00 71 09/10/16 16:37 96 50 09/10/16 16:30 95 Bi-Pap 60 09/10/16 16:00 69 09/10/16 16:00 98.2 69 19 131/59 09/10/16 16:00 91 Nasal Cannula 6.00 I/O 09/10/16 09/10/16 09/10/16 09/11/16 09/11/16 09/11/16 07:00 15:00 23:00 07:00 15:00 23:00 Intake Total 471 ml 962 ml 372 ml 444 ml Output Total 650 ml 600 ml 1850 ml 1100 ml Balance -179 ml 362 ml -1478 ml -656 ml Intake Oral 200 ml 720 ml 240 ml 200 ml IV Total 271 ml 242 ml 132 ml 244 ml Output Urine Total 650 ml 600 ml 1850 ml 1100 ml # Bowel Movements 0 0 0 Physical Exam HEENTN: negative Lungs: Coarse breath sounds in all lung gallardo. CV: 2/6 Aortic murmur. No gallops, clicks rubs. No JVD. Abd: negative. BS +. Ext: No edema Neuro: No overt focal findings. Laboratory Laboratory Tests Test 09/11/16 04:58 White Blood Count 7.1 TH/MM3 Red Blood Count 3.99 MIL/MM3 Hemoglobin 10.9 GM/DL Hematocrit 32.7 % Mean Corpuscular Volume 81.9 FL Mean Corpuscular Hemoglobin 27.3 PG Mean Corpuscular Hemoglobin 33.4 % Concent Red Cell Distribution Width 15.5 % Platelet Count 55 TH/MM3 Mean Platelet Volume 9.9 FL Neutrophils (%) (Auto) 83.3 % Lymphocytes (%) (Auto) 10.2 % Monocytes (%) (Auto) 5.8 % Eosinophils (%) (Auto) 0.6 % Basophils (%) (Auto) 0.1 % Neutrophils # (Auto) 5.9 TH/MM3 Lymphocytes # (Auto) 0.7 TH/MM3 Monocytes # (Auto) 0.4 TH/MM3 Eosinophils # (Auto) 0.0 TH/MM3 Basophils # (Auto) 0.0 TH/MM3 CBC Comment AUTO DIFF Differential Comment AUTO DIFF CONFIRMED Platelet Estimate LOW Platelet Morphology Comment ENLARGED Sodium Level 133 MEQ/L Potassium Level 3.8 MEQ/L Chloride Level 92 MEQ/L Carbon Dioxide Level 34.4 MEQ/L Anion Gap 7 MEQ/L Blood Urea Nitrogen 31 MG/DL Creatinine 1.01 MG/DL Estimat Glomerular Filtration 73 ML/MIN Rate Random Glucose 233 MG/DL Calcium Level 8.8 MG/DL Phosphorus Level 3.1 MG/DL Magnesium Level 2.0 MG/DL Total Bilirubin 0.7 MG/DL Aspartate Amino Transf 33 U/L (AST/SGOT) Alanine Aminotransferase 54 U/L (ALT/SGPT) Alkaline Phosphatase 194 U/L Total Protein 5.8 GM/DL Albumin 2.6 GM/DL Imaging Last 48 hours Impressions Lower Extremity Ultrasound 09/11/16 0000 Signed Impressions: Service Date/Time: Sunday, September 11, 2016 12:30 - CONCLUSION: No DVT is identified within either lower extremity. Frank Young MD CT Angiography 09/10/16 0000 Signed Impressions: Service Date/Time: Sunday, September 11, 2016 01:05 - CONCLUSION: No evidence of pulmonary embolism. Frank Hardin MD Assessment and Plan Problem List: (1) NSTEMI (non-ST elevated myocardial infarction) (2) Aortic stenosis (3) Congestive heart failure (CHF) (4) Hypertension Assessment and Plan 09/11/16: The patient has with normal LVF but no overt CHF or angina at present. The AF is resolved as his respiratory status improves. I will DC IV amioderone which can be associated with pulmonary injury. Watch carvadolol but no wheezing. I think much of this is primary pulmonary disease but watch for CHF. Problem Qualifiers (1) Aortic stenosis: Qualified Code: I35.0 - Aortic valve stenosis, unspecified etiology (2) Congestive heart failure (CHF): (3) Hypertension: Qualified Code: I10 - Essential hypertension Bridgett Correia MD Sep 11, 2016 16:13
[2016-09-11] MEDS: traZODone HCL 100 MG TAB PO SCH (21:11)
[2016-09-12] VITALS (17 sets, daily range): BP systolic 81–169; BP diastolic 42–67; PULSE 68–84; RESP 14–35; TEMP 98.2–98.6; O2SAT 90–98
[2016-09-12] MEDS: INSULIN NovoLIN REGULAR SUPPLEMENTAL SCALE SQ SCH ×4 (02:38→19:35)
[2016-09-12] MEDS: LORazepam 2 MG/ML VIAL IV PUSH PRN (04:53)
[2016-09-12] MEDS: LEVOTHYROXINE SODIUM 50 MCG TAB PO SCH (04:55)
[2016-09-12] MEDS: CHLORHEXIDINE 0.12% (ORAL KIT) 15 ML CUP MT SCH ×2 (07:28→19:28)
[2016-09-12] MEDS: RESP: ALBUTEROL 2.5 MG/IPRATROPIUM 0.5 MG NEB (SCH) NEB ×4 (07:32→20:10)
--- NOTE | 2016-09-12 08:01 | HHI.FPPN ---
Subjective Remarks Mr. Gudino appeared uncomfortable this month. Nurse said he had been taking off his NRB overnight and this month, causing him to desaturate to as low as 50% . Nurse also stated that he seemed more lethargic this morning and she thinks he may be becoming delirious. He did get a dose of Ativan overnight, but that did not seem to calm him down. He did have a short period overnight where he saturated well on high flow oxygen by nasal cannula. When the partial non- rebreather mask was replaced, he began taking it off. Objective Vitals Vital Signs Date Time Temp Pulse Resp B/P Pulse Ox O2 Delivery O2 Flow Rate FiO2 09/12/16 07:33 93 Partial Rebreather 09/12/16 06:00 82 09/12/16 04:00 77 09/12/16 04:00 98.4 77 19 152/63 95 09/12/16 04:00 95 Partial Non-Rebreather 12.00 09/12/16 02:00 81 09/12/16 00:00 77 09/12/16 00:00 98.6 77 23 155/65 98 09/12/16 00:00 98 Partial Non-Rebreather 12.00 09/11/16 22:19 23 09/11/16 22:00 91 09/11/16 20:06 95 Partial Rebreather 14.00 09/11/16 20:00 98.5 78 23 92/63 95 09/11/16 20:00 78 09/11/16 20:00 95 Partial Non-Rebreather 12.00 09/11/16 19:49 92 High Flow Nasal Cannula 30.00 100 09/11/16 18:00 74 09/11/16 16:00 95 Nasal Cannula 12.00 09/11/16 16:00 75 09/11/16 16:00 97.9 75 25 157/70 90 09/11/16 14:00 74 09/11/16 13:06 92 High Flow Nasal Cannula 25.00 100 09/11/16 12:00 97.5 73 29 173/75 97 09/11/16 12:00 100 Nasal Cannula 12.00 09/11/16 12:00 73 09/11/16 10:00 68 09/11/16 08:20 97 Partial Rebreather I/O 3/409/11/16 09/11/16 09/12/16 09/12/16 09/12/16 07:00 15:00 23:00 07:00 15:00 23:00 Intake Total 444 ml 369 ml 189 ml 107 ml Output Total 1100 ml 1400 ml 450 ml 1000 ml Balance -656 ml -1031 ml -261 ml -893 ml Intake Oral 200 ml 240 ml 150 ml IV Total 244 ml 129 ml 39 ml 107 ml Output Urine Total 1100 ml 1400 ml 450 ml 1000 ml # Bowel Movements 0 1 1 Result Diagram: 09/11/168 09/11/16457 Objective Remarks Gen.: Lying in bed, non partial non-rebreather Head: Normocephalic. Atraumatic. EENT: Pupils equal round and reactive to light. Nose without drainage. Airway intact. Cardiovascular: Regular rate and rhythm. 2/6 systolic ejection murmur along left sternal border. Respiratory: CTAB bilaterally Abdomen: Soft, nontender, nondistended. No peritoneal signs. Musculoskeletal: No gross deformities. No edema. Skin: No obvious rashes or erythema. Neuro: Not very interactive with examiner A/P Assessment and Plan 71-year-old male who presented with a 5-day history of shortness of breath and nonproductive cough. ACS rule out positive for NSTEMI. Patient has a history of COPD and was admitted with sepsis with cardiology consultation for NSTEMI. Developed respiratory distress on 09/04 and was transferred to the ICU with critical care consult. Currently tolerating BiPAP vs nonrebreather vs nasal cannula. Cardiology to perform left heart catheterization when clinically better. Pulmonology on board. Nephrology consulted for PHILIPPE. Hematology consulted due to thrombocytopenia. Discharge Planning Pending clinical improvement Problem List: (1) Respiratory distress Status: Acute Plan: On nonrebreather/partial nonrebreather/NC in the ICU -Continues to desaturate when the mask is off -Critical care managing -Solu-Medrol 40 mg every 12 hours -DuoNebs every 6 hours -I's and O's -Daily weights (2) NSTEMI (non-ST elevated myocardial infarction) Status: Acute Plan: -Patient with elevated troponins to 1.[address] elevations in V1 V3 on admission -Cardiology following -Left heart catheter when clinically able to tolerate procedure (3) Aortic stenosis Status: Acute Plan: -Cardiothoracic surgery consulted -Cardiology and cardiothoracic surgery to discuss plans going forward -Will need to optimize medical management prior to performing any procedures -Pulmonology consulted given high surgical risk- appreciate recommendations (4) Pneumonia Status: Acute Plan: -Strep pneumoniae in sputum culture Infectious disease consult - Ceftarolin 300 mg IV every 12 hours (started on 09/07-) (5) CHF due to valvular disease Status: Acute Plan: Echo performed on 09/02 showed EF of 5055 percent. -Aortic valve with moderate to severe stenosis -Coreg 3.125 mg by mouth every 12 hours -BiPAP or nonrebreather per critical care -DC Amiodarone drip (6) PHILIPPE (acute kidney injury) Status: Acute Plan: -Likely prerenal in origin -Resolved, creatinine 1.09, WNL -Nephrology on board (7) Thrombocytopenia Status: Acute Plan: -Platelets dropped to 55 on 09/11 -Decreased aspirin to 81mg daily -Hematology consulted -Suspect ITP versus DIC -Heparin subcutaneous discontinued -HIT positive, but likely false positive, TIGIST pending -Hepatitis panel negative -Abdominal ultrasound on 09/07 shows heterogeneous hepatic echo texture consistent with chronic liver disease, splenomegaly, mild to moderate ascites -Continue to monitor (8) Diabetes Status: Acute Plan: Morning glucose 98; patient is in critical condition and is not eating very well Patient's home regimen is NPH 25 units every morning and 50 units daily at bedtime -Currently holding Levemir per critical care -Continue SSI -Adjust insulin regimen as needed (9) COPD exacerbation Status: Acute Plan: Patient with known COPD and [id number] history of smoking Albuterol every 2 hours when necessary DuoNeb nebs every 4 hours scheduled Solu-Medrol 60 mg every 8 hours (10) Hyponatremia Status: Acute Plan: -Pseudohyponatremia vs SIADH vs some element of both -Serum osmolality elevated at 304 -Uric acid within normal limits -Will follow with daily BMPs -Strict I's and O's (11) Hypertension Status: Acute Plan: Continue Coreg. Hydralazine when necessary. Continue losartan (12) Anxiety and depression Status: Acute Plan: -Due to increasing lethargy will adjust home meds -Trazodone 100 mg by mouth daily - hold -Sertraline 100 mg by mouth daily - taper to 50mg today -Buspirone 10mg BID - hold -Primidone 100mg PO BID - continue (13) BPH (benign prostatic hyperplasia) Status: Acute Plan: -History of BPH -Patient states history of using Flomax but not on current list of medications -Will consider starting Flomax if patient has symptoms (14) Severe sepsis Status: Resolved Plan: Septic on admission On Ceftarolin IV as above Repeat blood cultures negative to date Abx History: -Vancomycin 1250mg IV Q12h with pharmacy consult and Zosyn 3.375mg IV Q6h (dc ) -Azithromycin 500 mg by mouth every 24 hours started on 09/01. Dc'd on 09/07 (15) FEN/DVT PPX/GI PPX Status: Acute Plan: Fluids: oral fluids only Electrolytes: Will monitor and replace as needed Nutrition: Heart healthy diet DVT Prophylaxis: SCDs, heparin discontinued due to thrombocytopenia GI Prophylaxis: Protonix IV 40 mg daily Problem Qualifiers (1) Aortic stenosis: Qualified Code: I35.0 - Aortic valve stenosis, unspecified etiology (2) Pneumonia: Qualified Code: J18.9 - Pneumonia of both lungs due to infectious organism, unspecified part of lung (3) Diabetes: (4) Hypertension: Qualified Code: I10 - Essential hypertension Rupali Eddy MD R1 Sep 12, 2016 08:01 Rupali Eddy MD R1 Sep 12, 2016 08:01
--- NOTE | 2016-09-12 08:08 | HHI.CCPN ---
Subjective Remarks/Hospital Course The patient is a 71-year-old male with past medical history significant for COPD, aortic stenosis, hypertension and diabetes who presented to the emergency department with progressive shortness of breath and nonproductive cough for last 5 days. He was diagnosed and admitted to service on with [id number], COPD exacerbation and probable pneumonia. He had a previous heart catheterization in 2014, was told at that time he needed to have aortic valve replacement. He was started on IV antibiotics with Rocephin and azithromycin and also was placed on IV steroids and DuoNeb breathing treatment for probable COPD exacerbation. All the cultures so far negative, also negative for influenza A and B, negative for Streptococcus and Legionella antigen. Cardiology was consulted, and echo showed moderate to severe aortic stenosis. Cardiothoracic surgery was also consulted and is following, plan for cardiac catheterization this Tuesday. A Halicat was called today as the patient was increasingly lethargic with increased dyspnea and hypoxia. He desaturated to the 70% when RN attempted to move him. Chest x-ray showed bilateral pulmonary edema worsening compared to admission. He was moved to the ICU and critical care medicine was consulted. I evaluated the patient in ICU. He is tachypneic on 100% nonrebreather. Examination revealed bilateral crackles. 60 mg of IV Lasix stat given and patient was ordered to be placed on BiPAP at 06/16. BNP was 658 SUBJECT 09/05/16: Patient did not tolerate BiPAP overnight. Currently remains on partial nonrebreather. Urine output more than 6 L in 24 hours. He developed atrial flutter with RVR, was placed on esmolol which I have changed to Cardizem. Chest x-ray shows interval improvement in my review 09/06/16: Remains on pNRB. sputum cx with strep pneumo. Urine out put diminishing. 1L bolus given with adequate response. Bilateral lung infiltrate. Discussed with Dr. Dudley. Will hold off cath until Reps failure/ALI improves and renal failure improves 09.07 Patient is on BIPAP 06/16 with FIO2 65%. Afebrile. 09/08 Patient is off BIPAP on Bumex drip 2mg/hr with UO 7.6L in 24 hrs. Afebrile feeling better. Renal function improving with Cr 1.52 from 2.07. 09/09 Patient is on partial rebreather with good sats. Afebrile. Renal function improving with Cr: 1.09 from 1.52. Remains on Bumex drip down 0.5mg/hr. 09/10 Patient was placed on Amio drip yesterday . Afebrile. Off Bumex drip. 09/11 No acute events overnight. Remains on Amio drip. On partial rebreather. CT chest last night showed no PE. 09/12 No acute events overnight. Remains on partial rebreather, off Amio drip. Afebrile. Objective Vital Signs Date Time Temp Pulse Resp B/P Pulse Ox O2 Delivery O2 Flow Rate FiO2 09/12/16 07:33 93 Partial Rebreather 09/12/16 06:00 82 09/12/16 04:00 98.4 19 152/63 09/12/16 04:00 12.00 09/11/16 19:49 100 Intake and Output 09/11/16 09/11/16 09/12/16 08:00 16:00 00:00 Intake Total 444 ml 369 ml 189 ml Output Total 1100 ml 1400 ml 450 ml Balance -656 ml -1031 ml -261 ml Result Diagram: 09/11/16 0458 09/11/16 0458 Imaging Last Impressions Lower Extremity Ultrasound 09/11/16 0000 Signed Impressions: Service Date/Time: Sunday, September 11, 2016 12:30 - CONCLUSION: No DVT is identified within either lower extremity. Frank Young MD CT Angiography 09/10/16 0000 Signed Impressions: Service Date/Time: Sunday, September 11, 2016 01:05 - CONCLUSION: No evidence of pulmonary embolism. Frank Hardin MD Chest X-Ray 09/09/16 0000 Signed Impressions: Service Date/Time: September 09:06 - CONCLUSION: 1. Diffuse bilateral infiltrates improved when compared to previous. Bonifacio Rogel MD Abdomen Ultrasound 09/07/16 0000 Signed Impressions: Service Date/Time: Wednesday, September 07, 2016 16:45 - CONCLUSION: Heterogeneous hepatic echotexture consistent with chronic liver disease. Splenomegaly Mild to moderate ascites Mildly thickened gallbladder wall without evidence of gallstones. No evidence of hydronephrosis. Isidro Oliver MD Upper Extremity Ultrasound 09/06/16 0000 Signed Impressions: Service Date/Time: Tuesday, September 06, 2016 20:43 - CONCLUSION: No evidence of DVT. Isidro Oliver MD Chest CT 09/05/16 0000 Signed Impressions: Service Date/Time: Monday, September 05, 2016 15:37 - CONCLUSION: 1. Cardiomegaly with diffuse ground glass densities and consolidation likely pulmonary edema and/or pneumonia. 2. Small bilateral pleural effusions. 3. Prominent lymphadenopathy in the mediastinum. Cameron Archer MD Objective Remarks Gen: 71-year-old male lying in bed in NAD Head: Normocephalic. Atraumatic. EENT: Pupils equal round and reactive to light. Cardiovascular: S1-S2 normal. Systolic murmur heard in the aortic area Respiratory: Bilateral rhonchi and bibasilar crackles Abdomen: Soft, nontender, nondistended. No peritoneal signs. Musculoskeletal: No gross deformities. No edema. Skin: No obvious rashes or erythema. Neuro: Alert awake oriented 3. No focal deficits A/P Assessment and Plan NEURO: -Monitor neuro status, avoid sedatives, antipsychotics. RESP: Acute hypoxemic respiratory failure requiring BiPAP ARDS Pneumococcal pneumonia COPD exacerbation -Continue with oxygen keep sat >92% -BiPAP PRN for resp distress, check ABG/ CXR - Solu-Medrol 40mg Q12 and DuoNeb breathing treatments -CTA chest last night showed no PE CV: Severe aortic stenosis CHF NSTEMI -Monitor HR and BP keep MAP>65mmHg -Continue aspirin, Coreg 6.25mg BID,add Hydralazine 50mg Q8, on pravastatin. off Amio drip. -Echo showed EF 50-55%, mod-severe -Cardiothoracic surgery and cardiology Dr. Dudley is following -[facility] possible Wednesday 09/13 GI: -Elevated LFT's..trending down -On PO diet -Protonix for GI prophylaxis -Monitor LFT's ( trending down) US abdomen: Heterogeneous hepatic echotexture consistent with chronic liver disease. Splenomegaly Mild to moderate ascites Mildly thickened gallbladder wall without evidence of gallstones. No evidence of hydronephrosis. : Acute kidney injury..improving Hyponatremia..resolving -Monitor renal function, I/O's, avoid nephrotoxins. On KCL 20meq daily -Renal- Dr. Roa. Renal US: No hydronephrosis ID: Sepsis Pneumococcal pneumonia -Continue abx per ID (Teflaro).Monitor for signs of infections ( Fever, WBC) -Sputum culture positive for strep pneumo. Influenza negative -Recheck sputum cx, UA HEME: -Monitor CBC, CMP, coags. Hep PLT ab positive, follow up on TIGIST -Heme is following ENDO: Type 2 diabetes Hypothyroidism - SSI medium scale for glycemic control. -Continue Synthroid 50 mcg daily. TSH: 0.373 PROPH: -Bilateral lower extremity SCDs. Protonix for GI prophylaxis. Heparin SQ on hold for thrombocytopenia LINES: -Utilize peripheral IVs, Follow up on labs Level 2 Gerry Vivas MD Sep 12, 2016 08:08
[2016-09-12 08:11] LABS: BLOOD GAS BASE EXCESS 5.9 mmol/L (-2-2); BLOOD GAS CARBOXYHEMOGLOBIN 2.5 % (0-4); BLOOD GAS HCO3 30 mmol/L (22-26); BLOOD GAS O2 HGB SATURATION 87 % (90-100); BLOOD GAS OXYGEN CONTENT 14.1 Vol % (12.0-20.0); BLOOD GAS PCO2 44 mmHg (38-42); BLOOD GAS PO2 59 mmHg (61-120); BLOOD GAS TOTAL HGB 11.5 G/DL (12.0-16.0); TEMP CORR TO 98.6
[2016-09-12 08:12] LABS: CRITICAL VALUE YES; DRAW SITE RT RADIAL; LITER FLOW 15 L/M; NUMBER OF ARTERIAL PUNCTURES 1; OXYGEN DEVICE PARTIAL REBREATHER; STAT NO; ULNAR PULSE PRESENT
[2016-09-12] MEDS: busPIRone HCL 10 MG TAB PO SCH (08:33)
[2016-09-12] MEDS: POTASSIUM CHLORIDE 20 MEQ CONTROLLED RELEASE TAB PO SCH (08:33)
[2016-09-12] MEDS: SERTRALINE HCL 100 MG TAB PO SCH (08:33)
[2016-09-12] MEDS: CARVEDILOL 6.25 MG TAB PO SCH ×2 (08:33→19:27)
[2016-09-12] MEDS: FERROUS SULFATE 325 MG (65 MG ELEMENTAL IRON) TAB PO SCH (08:33)
[2016-09-12] MEDS: DOCUSATE SODIUM 50 MG/SENNA 8.6 MG TAB PO SCH (08:34)
[2016-09-12] MEDS: methylPREDNISolone SOD SUCC 40 MG/1 ML VIAL IV SCH ×2 (08:34→19:27)
[2016-09-12] MEDS: PRAVASTATIN SOD 40 MG TAB PO SCH (08:34)
[2016-09-12] MEDS: ASPIRIN 81 MG CHEW TAB PO SCH (08:34)
[2016-09-12] MEDS: PREGABALIN 75 MG CAP PO SCH (08:34)
[2016-09-12] MEDS: PRIMIDONE 50 MG TAB PO SCH ×3 (08:34→18:29)
[2016-09-12] MEDS: SODIUM CHLORIDE 0.9% FLUSH 5 ML FLUSH IVF PRN (08:34)
[2016-09-12] MEDS: hydrALAZINE HCL 50 MG TAB PO SCH ×3 (08:40→19:28)
--- NOTE | 2016-09-12 08:46 | RADRPT ---
EXAM DATE/TIME: 09/12/2016 08:20 [facility] COMPARISON: CT PULMONARY ANGIOGRAM, September 11, 2016, 1:05. CHEST SINGLE AP, September 09, 2016, 9:06. INDICATIONS : Short of breath. MEDICAL HISTORY : None. SURGICAL HISTORY : None. ENCOUNTER: Subsequent ACUITY: 3 days PAIN SCORE: 7/10 LOCATION: Bilateral chest FINDINGS: Portable AP view of the chest demonstrates a normal-sized cardiac silhouette. There is severe diffuse airspace consolidation and interstitial opacity bilaterally. This either stable to mildly increased. No pleural effusion or pneumothorax is identified. Bones and soft tissues demonstrate no acute findi ng. CONCLUSION: Severe diffuse bilateral interstitial opacity and airspace consolidation. Compared to the prior chest x-ray it is either stable to mildly increased. Frank Young MD on September 12, 2016 at 8:43 Board Certified Radiologist. This report was verified electronically.
[2016-09-12 10:13] LABS: HEMATOCRIT 37.8 % (39.0-51.0); MEAN CELL VOLUME 82.2 FL (80.0-100.0); MEAN CORPUSCULAR HGB CONC 32.9 % (32.0-36.0); PLATELET COUNT 64 TH/MM3 (150-450); RED CELL DISTRIBUTION WIDTH 15.5 % (11.6-17.2); WHITE BLOOD COUNT 12.4 TH/MM3 (4.0-11.0)
[2016-09-12 10:16] LABS: HEMO FLAGS AUTO DIFF
[2016-09-12 10:23] LABS: BICARBONATE 30.5 MEQ/L (21.0-32.0); POTASSIUM 4.3 MEQ/L (3.5-5.1)
[2016-09-12 10:39] LABS: EOSINOPHILS 2 % (0-4); NEUTROPHIL # MANUAL DIFF 10.5 TH/MM3 (1.8-7.7); PLATELET ESTIMATE SMEAR LOW (NORMAL); PLATELET MORPHOLOGY NORMAL (NORMAL); POLYS (SEG NEUTROPHILS) 85 % (16-70); SCAN/DIFF FINAL DIFF MANUAL; WBC DIFF SAMPLE 100
[2016-09-12] MEDS ORDERED: HALOPERIDOL LACTATE 5 MG/ML AMP IV ONE (11:30)
[2016-09-12] MEDS ORDERED: ETOMIDATE 20 MG/10 ML VIAL ONE (12:29)
[2016-09-12] MEDS ORDERED: PROPOFOL 1000 MG/100 ML INJ 100 ML ONE (12:29)
[2016-09-12] MEDS: PROPOFOL 1000 MG/100 ML INJ 100 ML IV SCH ×2 (13:12→18:56)
--- NOTE | 2016-09-12 13:29 | RADRPT ---
EXAM DATE/TIME: 09/12/2016 13:02 [facility] COMPARISON: CHEST SINGLE AP, September 12, 2016, 8:20. INDICATIONS : Status Post Intubation. MEDICAL HISTORY : Hypertension. Chronic obstructive pulmonary disease. Cardiovascular disease. Diabetes SURGICAL HISTORY : None. ENCOUNTER: Initial ACUITY: 1 day PAIN SCORE: Non-responsive. LOCATION: Bilateral chest FINDINGS: Portable AP view of the chest demonstrates cardiac silhouette size at the upper limits for normal. En dotracheal tube is now present. Brynn is not well visualized but endotracheal tube tip is estimated to measure approximately 2 cm from the brynn. Nasogastric tube courses beyond the GE junction. Multi ple EKG lines overlie the patient. Lungs are underinflated and there is bilateral airspace consolidat ion, increased from the earlier exam. No pneumothorax is visualized. CONCLUSION: 1. Endotracheal tube is now present. The brynn is not well-visualized but tube tip is estimated to b e approximately 2 cm from the brynn. 2. Severe bilateral air space consolidation increased from the earlier exam. Frank Young MD on September 12, 2016 at 13:26 Board Certified Radiologist. This report was verified electronically.
[2016-09-12] MEDS: CEFTAROLINE INJ 600 MG in SODIUM CHLORIDE 0.9% INJ 100 ML IV SCH (13:39)
[2016-09-12 13:52] LABS: BLOOD GAS BASE EXCESS 3.8 mmol/L (-2-2); BLOOD GAS CARBOXYHEMOGLOBIN 2.5 % (0-4); BLOOD GAS HCO3 28 mmol/L (22-26); BLOOD GAS O2 HGB SATURATION 93 % (90-100); BLOOD GAS OXYGEN CONTENT 14.3 Vol % (12.0-20.0); BLOOD GAS PCO2 47 mmHg (38-42); BLOOD GAS PO2 90 mmHg (61-120); BLOOD GAS TOTAL HGB 10.8 G/DL (12.0-16.0); CRITICAL VALUE NO; DRAW SITE RT RADIAL; FIO2 100 %; NUMBER OF ARTERIAL PUNCTURES 1; OXYGEN DEVICE VENTILATOR; STAT NO; TEMP CORR TO 98.6; ULNAR PULSE PRESENT
--- NOTE | 2016-09-12 14:02 | PD.CARD.PN ---
Subjective Subjective Remarks S/P intubation this afternoon Objective Medications Current Medications Medications (Trade) Dose Ordered Sig/Dev Route Start Time Stop Time Status Last Admin (NS Flush) 2 ml UNSCH PRN IVF 08/31/16 11:15 09/12/16 08:34 (Zofran Inj) 4 mg Q6H PRN IV 08/31/16 13:45 (Buspar) 10 mg BID PO 08/31/16 21:00 Hold 09/12/16 08:33 (Synthroid) 50 mcg DAILY@06 PO 09/01/16 06:00 09/12/16 04:55 (Pravachol) 40 mg DAILY PO 09/01/16 09:00 09/12/16 08:34 (Lyrica) 150 mg BID PO 08/31/16 21:00 Hold 09/12/16 08:34 (Mysoline) 100 mg TID PO 08/31/16 18:00 09/12/16 13:42 (Desyrel) 100 mg HS PO 08/31/16 21:00 09/11/16 21:11 (Heparin Inj) 5,000 units Q8HR SQ 09/01/16 14:00 Hold 09/06/16 13:27 (Xanax) 0.5 mg Q12HR PRN PO 09/01/16 14:45 09/08/16 12:58 Miscellaneous Information Patient in critical care unit? Ass... [id number] XX 09/04/16 20:00 09/04/16 20:00 (Morphine Inj) 2 mg Q4H PRN IV 09/05/16 11:30 09/06/16 16:06 (Ferrous Sulfate) 325 mg BID PO 09/06/16 09:00 09/12/16 08:33 (Coreg) 6.25 mg Q12HR PO 09/06/16 09:00 09/12/16 08:33 (Peridex 0.12% Liq) 15 ml BID@08,20 MT 09/06/16 20:00 (Shantelle-Colace) 2 tab DAILY PO 09/06/16 17:45 09/12/16 08:34 (Ativan Inj) 0.25 mg Q6H PRN IV PUSH 09/06/16 17:45 09/12/16 04:53 (Levemir Inj) 30 units HS SQ 09/07/16 21:00 Hold 09/09/16 20:18 (SoluMEDROL INJ) 40 mg Q12H IV 09/08/16 09:00 09/12/16 08:34 (Apresoline Inj) 10 mg Q6H PRN IV 09/09/16 03:15 09/09/16 04:10 IV Flush 2 ml 2 ml UNSCH PRN IVF 09/09/16 10:45 (Teflaro Inj/NS Inj) 100 ml @ 100 mls/hr Q12H IV 09/10/16 00:00 09/12/16 13:39 (KCl) 20 meq DAILY PO 09/10/16 09:00 09/12/16 08:33 (D50w (Vial) Inj) 25 ml UNSCH PRN IV PUSH 09/11/16 08:00 (Glucagon Inj) 1 mg UNSCH PRN OTHER 09/11/16 08:00 (NovoLIN R SUPPLEMENTAL SCALE) 1 Q6H SQ 09/11/16 08:00 09/12/16 13:46 (Aspirin Chew) 81 mg DAILY PO 09/12/16 09:00 09/12/16 08:34 (Apresoline) 50 mg Q8HR PO 09/12/16 08:00 09/12/16 13:42 Sertraline HCl 50 mg 50 mg DAILY PO 09/13/16 09:00 (Diprivan 1000 Mg/100ml Inj) 100 ml @ 0 mls/hr TITRATE IV 09/12/16 12:45 09/12/16 13:12 Vital Signs / I&O Vital Signs Date Time Temp Pulse Resp B/P Pulse Ox O2 Delivery O2 Flow Rate FiO2 09/12/16 12:53 93 100 09/12/16 11:15 96 Bi-Pap 15.00 100 09/12/16 08:00 95 Partial Non-Rebreather 12.00 09/12/16 07:33 93 Partial Rebreather 09/12/16 06:00 82 09/12/16 04:00 77 09/12/16 04:00 98.4 77 19 152/63 95 09/12/16 04:00 95 Partial Non-Rebreather 12.00 09/12/16 02:00 81 09/12/16 00:00 77 09/12/16 00:00 98.6 77 23 155/65 98 09/12/16 00:00 98 Partial Non-Rebreather 12.00 09/11/16 22:19 23 09/11/16 22:00 91 09/11/16 20:06 95 Partial Rebreather 14.00 09/11/16 20:00 98.5 78 23 92/63 95 09/11/16 20:00 78 09/11/16 20:00 95 Partial Non-Rebreather 12.00 09/11/16 19:49 92 High Flow Nasal Cannula 30.00 100 09/11/16 18:00 74 09/11/16 16:00 95 Nasal Cannula 12.00 09/11/16 16:00 75 09/11/16 16:00 97.9 75 25 157/70 90 09/11/16 14:00 74 I/O 09/11/16 09/11/16 09/11/16 09/12/16 09/12/16 09/12/16 07:00 15:00 23:00 07:00 15:00 23:00 Intake Total 444 ml 369 ml 189 ml 107 ml Output Total 1100 ml 1400 ml 450 ml 1000 ml Balance -656 ml -1031 ml -261 ml -893 ml Intake Oral 200 ml 240 ml 150 ml IV Total 244 ml 129 ml 39 ml 107 ml Output Urine Total 1100 ml 1400 ml 450 ml 1000 ml # Bowel Movements 0 1 1 Physical Exam Physical Exam HEENTN: negative Lungs: Coarse breath sounds in all lung gallardo. CV: 2/6 Aortic murmur. No gallops, clicks rubs. No JVD. Abd: negative. BS +. Ext: No edema Neuro: Sedated Laboratory Laboratory Tests Test 09/12/16 09/12/16 09/12/16 08:05 09:30 13:45 Blood Gas Puncture Site RT RADIAL RT RADIAL Blood Gas Patient Temperature 98.6 98.6 Blood Gas HCO3 30 mmol/L 28 mmol/L Blood Gas Base Excess 5.9 mmol/L 3.8 mmol/L Blood Gas Oxygen Saturation 87 % 93 % Arterial Blood pH 7.45 7.40 Arterial Blood Partial 44 mmHg 47 mmHg Pressure CO2 Arterial Blood Partial 59 mmHg 90 mmHg Pressure O2 Arterial Blood Oxygen Content 14.1 Vol % 14.3 Vol % Arterial Blood 2.5 % 2.5 % Carboxyhemoglobin Arterial Blood Methemoglobin 1.0 % 1.0 % Blood Gas Hemoglobin 11.5 G/DL 10.8 G/DL Oxygen Delivery Device PARTIAL VENTILATOR REBREATHER Blood Gas Liter Flow 15 L/M White Blood Count 12.4 TH/MM3 Red Blood Count 4.60 MIL/MM3 Hemoglobin 12.4 GM/DL Hematocrit 37.8 % Mean Corpuscular Volume 82.2 FL Mean Corpuscular Hemoglobin 27.0 PG Mean Corpuscular Hemoglobin 32.9 % Concent Red Cell Distribution Width 15.5 % Platelet Count 64 TH/MM3 Mean Platelet Volume 9.9 FL Neutrophils (%) (Auto) % Lymphocytes (%) (Auto) % Monocytes (%) (Auto) % Eosinophils (%) (Auto) % Basophils (%) (Auto) % Neutrophils # (Auto) TH/MM3 Lymphocytes # (Auto) TH/MM3 Monocytes # (Auto) TH/MM3 Eosinophils # (Auto) TH/MM3 Basophils # (Auto) TH/MM3 CBC Comment AUTO DIFF Differential Total Cells 100 Counted Neutrophils % (Manual) 85 % Lymphocytes % 7 % Monocytes % 6 % Eosinophils % 2 % Neutrophils # (Manual) 10.5 TH/MM3 Differential Comment FINAL DIFF MANUAL Platelet Estimate LOW Platelet Morphology Comment NORMAL Red Cell Morphology Comment NORMAL Sodium Level 134 MEQ/L Potassium Level 4.3 MEQ/L Chloride Level 94 MEQ/L Carbon Dioxide Level 30.5 MEQ/L Anion Gap 10 MEQ/L Blood Urea Nitrogen 24 MG/DL Creatinine 0.96 MG/DL Estimat Glomerular Filtration 77 ML/MIN Rate Random Glucose 276 MG/DL Calcium Level 8.9 MG/DL Blood Gas Ventilator Setting A/C 550/14/10PEEP Blood Gas Inspired Oxygen 100 % Imaging Last Impressions Chest X-Ray 09/12/16 0000 Signed Impressions: Service Date/Time: Monday, September 12, 2016 13:02 - CONCLUSION: 1. Endotracheal tube is now present. The brynn is not well-visualized but tube tip is estimated to be approximately 2 cm from the brynn. 2. Severe bilateral air space consolidation increased from the earlier exam. Frank Young MD Lower Extremity Ultrasound 09/11/16 0000 Signed Impressions: Service Date/Time: Sunday, September 11, 2016 12:30 - CONCLUSION: No DVT is identified within either lower extremity. Frank Young MD CT Angiography 09/10/16 0000 Signed Impressions: Service Date/Time: Sunday, September 11, 2016 01:05 - CONCLUSION: No evidence of pulmonary embolism. Frank Hardin MD Abdomen Ultrasound 09/07/16 0000 Signed Impressions: Service Date/Time: Wednesday, September 07, 2016 16:45 - CONCLUSION: Heterogeneous hepatic echotexture consistent with chronic liver disease. Splenomegaly Mild to moderate ascites Mildly thickened gallbladder wall without evidence of gallstones. No evidence of hydronephrosis. Isidro Oliver MD Upper Extremity Ultrasound 09/06/16 0000 Signed Impressions: Service Date/Time: Tuesday, September 06, 2016 20:43 - CONCLUSION: No evidence of DVT. Isidro Oliver MD Chest CT 09/05/16 0000 Signed Impressions: Service Date/Time: Monday, September 05, 2016 15:37 - CONCLUSION: 1. Cardiomegaly with diffuse ground glass densities and consolidation likely pulmonary edema and/or pneumonia. 2. Small bilateral pleural effusions. 3. Prominent lymphadenopathy in the mediastinum. Cameron Archer MD Assessment and Plan Problem List: (1) NSTEMI (non-ST elevated myocardial infarction) (2) Aortic stenosis (3) Congestive heart failure (CHF) (4) Hypertension Assessment and Plan 1) NSTEMI - no report of CP. ? Cath when stable 2) CHF/Respiratory failure- s/p intubation. Amiodarone was d/c yesterday due to pulmonary dz 3) Hx PAF- rhythm stable 4) Renal status - stable 5) Dr. Dudley to resume cardiac management on Tuesday Discussed Condition With Dr. Correia Problem Qualifiers (1) Aortic stenosis: Qualified Code: I35.0 - Aortic valve stenosis, unspecified etiology (2) Congestive heart failure (CHF): (3) Hypertension: Qualified Code: I10 - Essential hypertension Karmen Epstein Sep 12, 2016 14:02
[2016-09-12] MEDS ORDERED: BUMETANIDE INJ 1 MG/4 ML VIAL IV PUSH ONE (14:30)
[2016-09-12] MEDS: fentaNYL DRIP 250 ML IV SCH (15:06)
[2016-09-12] MEDS ORDERED: FUROSEMIDE 20 MG/2 ML VIAL IV PUSH SCH (18:00)
[2016-09-12] MEDS: traZODone HCL 100 MG TAB PO SCH (19:27)
[2016-09-12] MEDS: FERROUS SULFATE 300 MG /5ML UDC PO SCH (19:54)
--- NOTE | 2016-09-12 22:46 | HHI.IDPN ---
Subjective Subjective Remarks ID X cover for Dr Henderson Mr. Gudino is a 71-year-old male with PMHx significant for COPD, aortic stenosis, hypertension and diabetes who presented to the emergency department with progressive shortness of breath and nonproductive cough for last 5 days. ID following for resistant Strep pneumo pneumonia. Also pulm edema from severe aortic stenosis. Overnight events reviewed: pt got intubated 2/2 progressive resp distress, hypoxia No fevers No rash pt has no secretions Antibiotics Teflaro IV Lines Line sites with no e/o infection Past Medical History reviewed Allergies: Coded Allergies: Niacin (Unverified Allergy, Severe, GENERALIZED BURNING AND ITCHING, ) Objective . Vital Signs Date Time Temp Pulse Resp B/P Pulse Ox O2 Delivery O2 Flow Rate FiO2 09/12/16 22:00 68 09/12/16 20:00 60 09/12/16 20:00 98.4 69 14 81/42 94 09/12/16 20:00 69 09/12/16 20:00 94 Mechanical Ventilator 60 09/12/16 18:00 71 09/12/16 17:00 60 09/12/16 16:00 94 Mechanical Ventilator 70 09/12/16 16:00 98.4 74 16 99/51 93 09/12/16 16:00 70 09/12/16 16:00 74 09/12/16 15:36 90 70 09/12/16 14:00 69 09/12/16 12:53 93 100 09/12/16 12:45 100 09/12/16 12:45 100 Mechanical Ventilator 100 09/12/16 12:00 81 09/12/16 12:00 98.6 81 35 149/64 97 09/12/16 12:00 96 Bi-Pap 15.00 09/12/16 11:15 96 Bi-Pap 15.00 100 09/12/16 10:00 78 09/12/16 08:00 84 09/12/16 08:00 95 Partial Non-Rebreather 12.00 09/12/16 08:00 98.2 84 29 169/67 98 09/12/16 07:33 93 Partial Rebreather 09/12/16 06:00 82 09/12/16 04:00 77 09/12/16 04:00 98.4 77 19 152/63 95 09/12/16 04:00 95 Partial Non-Rebreather 12.00 09/12/16 02:00 81 09/12/16 00:00 77 09/12/16 00:00 98.6 77 23 155/65 98 09/12/16 00:00 98 Partial Non-Rebreather 12.00 09/11/16 09/11/16 09/12/16 15:00 23:00 07:00 Intake Total 369 ml 189 ml 107 ml Output Total 1400 ml 450 ml 1000 ml Balance -1031 ml -261 ml -893 ml Intake Oral 240 ml 150 ml IV Total 129 ml 39 ml 107 ml Output Urine Total 1400 ml 450 ml 1000 ml # Bowel Movements 1 1 . Laboratory Tests Test 09/11/16 09/12/16 04:58 09:30 White Blood Count 7.1 TH/MM3 12.4 TH/MM3 Red Blood Count 3.99 MIL/MM3 4.60 MIL/MM3 Hemoglobin 10.9 GM/DL 12.4 GM/DL Hematocrit 32.7 % 37.8 % Mean Corpuscular Volume 81.9 FL 82.2 FL Mean Corpuscular Hemoglobin 27.3 PG 27.0 PG Mean Corpuscular Hemoglobin 33.4 % 32.9 % Concent Red Cell Distribution Width 15.5 % 15.5 % Platelet Count 55 TH/MM3 64 TH/MM3 Mean Platelet Volume 9.9 FL 9.9 FL Neutrophils (%) (Auto) 83.3 % % Lymphocytes (%) (Auto) 10.2 % % Monocytes (%) (Auto) 5.8 % % Eosinophils (%) (Auto) 0.6 % % Basophils (%) (Auto) 0.1 % % Neutrophils # (Auto) 5.9 TH/MM3 TH/MM3 Lymphocytes # (Auto) 0.7 TH/MM3 TH/MM3 Monocytes # (Auto) 0.4 TH/MM3 TH/MM3 Eosinophils # (Auto) 0.0 TH/MM3 TH/MM3 Basophils # (Auto) 0.0 TH/MM3 TH/MM3 CBC Comment AUTO DIFF AUTO DIFF Differential Comment AUTO DIFF FINAL DIFF CONFIRMED MANUAL Platelet Estimate LOW LOW Platelet Morphology Comment ENLARGED NORMAL Differential Total Cells 100 Counted Neutrophils % (Manual) 85 % Lymphocytes % 7 % Monocytes % 6 % Eosinophils % 2 % Neutrophils # (Manual) 10.5 TH/MM3 Red Cell Morphology Comment NORMAL Laboratory Tests Test 09/11/16 09/12/16 09/12/16 04:58 09:30 15:01 Sodium Level 133 MEQ/L 134 MEQ/L Potassium Level 3.8 MEQ/L 4.3 MEQ/L Chloride Level 92 MEQ/L 94 MEQ/L Carbon Dioxide Level 34.4 MEQ/L 30.5 MEQ/L Anion Gap 7 MEQ/L 10 MEQ/L Blood Urea Nitrogen 31 MG/DL 24 MG/DL Creatinine 1.01 MG/DL 0.96 MG/DL Estimat Glomerular Filtration 73 ML/MIN 77 ML/MIN Rate Random Glucose 233 MG/DL 276 MG/DL Calcium Level 8.8 MG/DL 8.9 MG/DL Phosphorus Level 3.1 MG/DL Magnesium Level 2.0 MG/DL Total Bilirubin 0.7 MG/DL Aspartate Amino Transf 33 U/L (AST/SGOT) Alanine Aminotransferase 54 U/L (ALT/SGPT) Alkaline Phosphatase 194 U/L Total Protein 5.8 GM/DL Albumin 2.6 GM/DL B-Type Natriuretic Peptide 840 PG/ML Imaging Last Impressions Chest X-Ray 09/12/16 0000 Signed Impressions: Service Date/Time: Monday, September 12, 2016 13:02 - CONCLUSION: 1. Endotracheal tube is now present. The brynn is not well-visualized but tube tip is estimated to be approximately 2 cm from the brynn. 2. Severe bilateral air space consolidation increased from the earlier exam. Frank Young MD Lower Extremity Ultrasound 09/11/16 0000 Signed Impressions: Service Date/Time: Sunday, September 11, 2016 12:30 - CONCLUSION: No DVT is identified within either lower extremity. Frank Young MD CT Angiography 09/10/16 0000 Signed Impressions: Service Date/Time: Sunday, September 11, 2016 01:05 - CONCLUSION: No evidence of pulmonary embolism. Frank Hardin MD Abdomen Ultrasound 09/07/16 0000 Signed Impressions: Service Date/Time: Wednesday, September 07, 2016 16:45 - CONCLUSION: Heterogeneous hepatic echotexture consistent with chronic liver disease. Splenomegaly Mild to moderate ascites Mildly thickened gallbladder wall without evidence of gallstones. No evidence of hydronephrosis. Isidro Oliver MD Upper Extremity Ultrasound 09/06/16 0000 Signed Impressions: Service Date/Time: Tuesday, September 06, 2016 20:43 - CONCLUSION: No evidence of DVT. Isidro Oliver MD Chest CT 09/05/16 0000 Signed Impressions: Service Date/Time: Monday, September 05, 2016 15:37 - CONCLUSION: 1. Cardiomegaly with diffuse ground glass densities and consolidation likely pulmonary edema and/or pneumonia. 2. Small bilateral pleural effusions. 3. Prominent lymphadenopathy in the mediastinum. Cameron Archer MD Physical Exam GENERAL: This is an obese, well-developed patient, in no apparent distress. SKIN: No rashes, ecchymoses or lesions. Cool and dry. HEAD: Atraumatic. Normocephalic. No temporal or scalp tenderness. EYES: Pupils equal round and reactive. Extraocular motions intact. No scleral icterus. No injection or drainage. ENT: Nose without bleeding, purulent drainage or septal hematoma. orally intubated NECK: Trachea midline. Supple, nontender, no meningeal signs. CARDIOVASCULAR: HS audible RESPIRATORY: Coarse bilateral breath sounds. Decreased air entry bilaterally. GASTROINTESTINAL: Abdomen soft, non-tender, Pendulous. MUSCULOSKELETAL: Extremities without clubbing, cyanosis, or edema. No joint tenderness, effusion, or edema noted. NEUROLOGICAL: sedated Assessment & Plan Remarks Sepsis Resistant Strep Pneumonia. Possible larger component of pulm edema at present time. - S to teflaro Acute resp failure on vent - int'd 2/2 progressive resp failure - no clinical e/o new PNA (no fever, no sputum or leukocytosis), likely resp failure 2/2 Acute renal failure: sepsis, prerenal Acute transaminitis: sepsis Acute COPD exacerbation Severe Aortic Stenosis with Pulm edema Recs Continue Teflaro IV (renal dose adjusted d.w Pharmacist in ICU) (ASP: PCN and Ceph resistant Strep Pneumo Pneumonia) d.w Micro: susceptibility on Sputum Strep resistant to PCN and Cephalosporins. Procalcitonin level normal but patient clinically responded to combination of diuretics and antibiotics. d/w Cardiology: finish short course for pneumonia. repeat new resp cultures Follow clinically. D.w Sonia Nielson MD Sep 12, 2016 22:46
[2016-09-13] VITALS (22 sets, daily range): BP systolic 98–125; BP diastolic 50–60; PULSE 69–82; RESP 14–23; TEMP 98.2–99.2; O2SAT 92–97
[2016-09-13] MEDS: CEFTAROLINE INJ 600 MG in SODIUM CHLORIDE 0.9% INJ 100 ML IV SCH ×3 (00:41→22:59)
[2016-09-13] MEDS: INSULIN NovoLIN REGULAR SUPPLEMENTAL SCALE SQ SCH ×4 (00:42→19:49)
[2016-09-13] MEDS: RESP: ALBUTEROL 2.5 MG/IPRATROPIUM 0.5 MG NEB (SCH) NEB ×4 (02:50→20:23)
[2016-09-13] MEDS: LEVOTHYROXINE SODIUM 50 MCG TAB PO SCH (04:38)
[2016-09-13] MEDS: hydrALAZINE HCL 50 MG TAB PO SCH ×3 (04:38→19:50)
[2016-09-13] MEDS: fentaNYL DRIP 250 ML IV SCH ×3 (04:44→21:56)
[2016-09-13 06:44] LABS: AUTOMATED NEUTROPHIL # 6.6 TH/MM3 (1.8-7.7); BASOPHIL % 0.3 % (0.0-2.0); EOSINOPHIL % 0.6 % (0.0-4.0); HEMATOCRIT 29.9 % (39.0-51.0); LYMPH % 8.4 % (9.0-44.0); LYMPHOCYTE # 0.7 TH/MM3 (1.0-4.8); MEAN CELL VOLUME 83.2 FL (80.0-100.0); MEAN CORPUSCULAR HEMOGLOBIN 27.3 PG (27.0-34.0); MEAN CORPUSCULAR HGB CONC 32.8 % (32.0-36.0); MONO % 6.7 % (0.0-8.0); PLATELET COUNT 50 TH/MM3 (150-450); RED BLOOD COUNT 3.59 MIL/MM3 (4.50-5.90); WHITE BLOOD COUNT 7.8 TH/MM3 (4.0-11.0)
[2016-09-13 06:46] LABS: HEMO FLAGS AUTO DIFF
[2016-09-13 07:00] LABS: BICARBONATE 30.2 MEQ/L (21.0-32.0); MAGNESIUM 2.2 MG/DL (1.5-2.5); POTASSIUM 5.1 MEQ/L (3.5-5.1)
--- NOTE | 2016-09-13 07:45 | PD.CARD.PN ---
Subjective Subjective Remarks sedated, imtubated and mechanically ventilated (Bandar Yu) Objective Vital Signs / I&O Vital Signs Date Time Temp Pulse Resp B/P Pulse Ox O2 Delivery O2 Flow Rate FiO2 09/13/16 06:00 73 09/13/16 04:18 94 60 09/13/16 04:00 94 Mechanical Ventilator 60 09/13/16 04:00 98.7 75 14 105/51 94 09/13/16 04:00 75 09/13/16 04:00 70 09/13/16 02:00 78 09/13/16 01:19 94 50 09/13/16 01:12 95 55 09/13/16 00:00 98.9 69 14 98/50 95 09/13/16 00:00 55 09/13/16 00:00 69 09/13/16 00:00 95 Mechanical Ventilator 50 09/12/16 22:15 95 55 09/12/16 22:00 68 09/12/16 20:09 94 60 09/12/16 20:00 60 09/12/16 20:00 98.4 69 14 81/42 94 09/12/16 20:00 69 09/12/16 20:00 94 Mechanical Ventilator 60 09/12/16 18:00 71 09/12/16 17:00 60 09/12/16 16:00 94 Mechanical Ventilator 70 09/12/16 16:00 98.4 74 16 99/51 93 09/12/16 16:00 70 09/12/16 16:00 74 09/12/16 15:36 90 70 09/12/16 14:00 69 09/12/16 12:53 93 100 09/12/16 12:45 100 09/12/16 12:45 100 Mechanical Ventilator 100 09/12/16 12:00 81 09/12/16 12:00 98.6 81 35 149/64 97 09/12/16 12:00 96 Bi-Pap 15.00 09/12/16 11:15 96 Bi-Pap 15.00 100 09/12/16 10:00 78 09/12/16 08:00 84 09/12/16 08:00 95 Partial Non-Rebreather 12.00 09/12/16 08:00 98.2 84 29 169/67 98 I/O 3/5/17 309/12/16 09/13/16 09/13/16 09/13/16 07:00 15:00 23:00 07:00 15:00 23:00 Intake Total 107 ml 696 ml 532 ml 470 ml Output Total 1000 ml 500 ml 250 ml 450 ml Balance -893 ml 196 ml 282 ml 20 ml Intake Oral 50 ml IV Total 107 ml 646 ml 116 ml Tube Feeding 116 ml 270 ml Other 300 ml 200 ml Output Urine Total 1000 ml 500 ml 250 ml 450 ml # Bowel Movements 1 0 0 Physical Exam GENERAL: Well-nourished, well-developed patient in no apparent distress. NECK: No JVD. No carotid bruit. CARDIOVASCULAR: Regular rate and rhythm. S1/S2 no rub or gallop. II/ STEVE LSB RESPIRATORY: No accessory muscle use. mild rhonchi to auscultation. Breath sounds equal bilaterally. GASTROINTESTINAL: Abdomen soft, non-tender, nondistended. MUSCULOSKELETAL: Extremities without clubbing, cyanosis, or edema. Laboratory Laboratory Tests Test 09/12/16 09/12/16 09/12/16 09/12/16 08:05 09:30 13:45 15:01 Blood Gas Puncture Site RT RADIAL RT RADIAL Blood Gas Patient Temperature 98.6 98.6 Blood Gas HCO3 30 mmol/L 28 mmol/L Blood Gas Base Excess 5.9 mmol/L 3.8 mmol/L Blood Gas Oxygen Saturation 87 % 93 % Arterial Blood pH 7.45 7.40 Arterial Blood Partial 44 mmHg 47 mmHg Pressure CO2 Arterial Blood Partial 59 mmHg 90 mmHg Pressure O2 Arterial Blood Oxygen Content 14.1 Vol % 14.3 Vol % Arterial Blood 2.5 % 2.5 % Carboxyhemoglobin Arterial Blood Methemoglobin 1.0 % 1.0 % Blood Gas Hemoglobin 11.5 G/DL 10.8 G/DL Oxygen Delivery Device PARTIAL VENTILATOR REBREATHER Blood Gas Liter Flow 15 L/M White Blood Count 12.4 TH/MM3 Red Blood Count 4.60 MIL/MM3 Hemoglobin 12.4 GM/DL Hematocrit 37.8 % Mean Corpuscular Volume 82.2 FL Mean Corpuscular Hemoglobin 27.0 PG Mean Corpuscular Hemoglobin 32.9 % Concent Red Cell Distribution Width 15.5 % Platelet Count 64 TH/MM3 Mean Platelet Volume 9.9 FL Neutrophils (%) (Auto) % Lymphocytes (%) (Auto) % Monocytes (%) (Auto) % Eosinophils (%) (Auto) % Basophils (%) (Auto) % Neutrophils # (Auto) TH/MM3 Lymphocytes # (Auto) TH/MM3 Monocytes # (Auto) TH/MM3 Eosinophils # (Auto) TH/MM3 Basophils # (Auto) TH/MM3 CBC Comment AUTO DIFF Differential Total Cells 100 Counted Neutrophils % (Manual) 85 % Lymphocytes % 7 % Monocytes % 6 % Eosinophils % 2 % Neutrophils # (Manual) 10.5 TH/MM3 Differential Comment FINAL DIFF MANUAL Platelet Estimate LOW Platelet Morphology Comment NORMAL Red Cell Morphology Comment NORMAL Sodium Level 134 MEQ/L Potassium Level 4.3 MEQ/L Chloride Level 94 MEQ/L Carbon Dioxide Level 30.5 MEQ/L Anion Gap 10 MEQ/L Blood Urea Nitrogen 24 MG/DL Creatinine 0.96 MG/DL Estimat Glomerular Filtration 77 ML/MIN Rate Random Glucose 276 MG/DL Calcium Level 8.9 MG/DL Blood Gas Ventilator Setting A/C 550/14/10PEEP Blood Gas Inspired Oxygen 100 % B-Type Natriuretic Peptide 840 PG/ML Test 09/13/16 05:40 White Blood Count 7.8 TH/MM3 Red Blood Count 3.59 MIL/MM3 Hemoglobin 9.8 GM/DL Hematocrit 29.9 % Mean Corpuscular Volume 83.2 FL Mean Corpuscular Hemoglobin 27.3 PG Mean Corpuscular Hemoglobin 32.8 % Concent Red Cell Distribution Width 16.0 % Platelet Count 50 TH/MM3 Mean Platelet Volume 11.0 FL Neutrophils (%) (Auto) 84.0 % Lymphocytes (%) (Auto) 8.4 % Monocytes (%) (Auto) 6.7 % Eosinophils (%) (Auto) 0.6 % Basophils (%) (Auto) 0.3 % Neutrophils # (Auto) 6.6 TH/MM3 Lymphocytes # (Auto) 0.7 TH/MM3 Monocytes # (Auto) 0.5 TH/MM3 Eosinophils # (Auto) 0.0 TH/MM3 Basophils # (Auto) 0.0 TH/MM3 CBC Comment AUTO DIFF Sodium Level 134 MEQ/L Potassium Level 5.1 MEQ/L Chloride Level 95 MEQ/L Carbon Dioxide Level 30.2 MEQ/L Anion Gap 9 MEQ/L Blood Urea Nitrogen 46 MG/DL Creatinine 1.41 MG/DL Estimat Glomerular Filtration 50 ML/MIN Rate Random Glucose 357 MG/DL Calcium Level 8.5 MG/DL Phosphorus Level 3.5 MG/DL Magnesium Level 2.2 MG/DL B-Type Natriuretic Peptide 419 PG/ML (Bandar Yu) Assessment and Plan Problem List: (1) NSTEMI (non-ST elevated myocardial infarction) (2) Aortic stenosis (3) Congestive heart failure (CHF) (4) Hypertension Assessment and Plan NSTEMI - LRHC determination will be made once Dr. Dudley can review chart and see the patient. His respiratory status worsened over the weekend requiring mechanical ventilation. - moderate to severe mean gradient 20 mmHg and valve area 0.88 cm2 ARF - creatinine increased HTN - blood pressure well controlled PNA - conitnue ABX Hyponatremia - pt is back in fluid overload will defer management of fluid status to nephrology. At the end of last week he was in a Bumex gtt with improvement of fluid status and renal function (Bandar Yu) Assessment and Plan resp decompensation likely multifactorial. CHF with + ARDS. responded well previously to bumex gtt with significant negative fluid balance. Weight has trended upward over past few days. restart bumex cont antibiotics cancel LRHC. Cr worsening (Troy Dudley MD) Problem Qualifiers (1) Aortic stenosis: Qualified Code: I35.0 - Aortic valve stenosis, unspecified etiology (2) Congestive heart failure (CHF): (3) Hypertension: Qualified Code: I10 - Essential hypertension Bandar Yu Sep 13, 2016 07:45 Troy Dudley MD Sep 13, 2016 08:18
[2016-09-13 07:52] LABS: PLATELET ESTIMATE SMEAR LOW (NORMAL); PLATELET MORPHOLOGY NORMAL (NORMAL); SCAN/DIFF AUTO DIFF CONFIRMED
--- NOTE | 2016-09-13 07:56 | HHI.CCPN ---
Subjective Remarks/Hospital Course The patient is a 71-year-old male with past medical history significant for COPD, aortic stenosis, hypertension and diabetes who presented to the emergency department with progressive shortness of breath and nonproductive cough for last 5 days. He was diagnosed and admitted to service on with [id number] [place], COPD exacerbation and probable pneumonia. He had a previous heart catheterization in 2014, was told at that time he needed to have aortic valve replacement. He was started on IV antibiotics with Rocephin and azithromycin and also was placed on IV steroids and DuoNeb breathing treatment for probable COPD exacerbation. All the cultures so far negative, also negative for influenza A and B, negative for Streptococcus and Legionella antigen. Cardiology was consulted, and echo showed moderate to severe aortic stenosis. Cardiothoracic surgery was also consulted and is following, plan for cardiac catheterization this Tuesday. A Halicat was called today as the patient was increasingly lethargic with increased dyspnea and hypoxia. He desaturated to the 70% when RN attempted to move him. Chest x-ray showed bilateral pulmonary edema worsening compared to admission. He was moved to the ICU and critical care medicine was consulted. I evaluated the patient in ICU. He is tachypneic on 100% nonrebreather. Examination revealed bilateral crackles. 60 mg of IV Lasix stat given and patient was ordered to be placed on BiPAP at 06/16. BNP was 658 SUBJECT 09/05/16: Patient did not tolerate BiPAP overnight. Currently remains on partial nonrebreather. Urine output more than 6 L in 24 hours. He developed atrial flutter with RVR, was placed on esmolol which I have changed to Cardizem. Chest x-ray shows interval improvement in my review 09/06/16: Remains on pNRB. sputum cx with strep pneumo. Urine out put diminishing. 1L bolus given with adequate response. Bilateral lung infiltrate. Discussed with Dr. Dudley. Will hold off cath until Reps failure/ALI improves and renal failure improves 09.07 Patient is on BIPAP 06/16 with FIO2 65%. Afebrile. 09/08 Patient is off BIPAP on Bumex drip 2mg/hr with UO 7.6L in 24 hrs. Afebrile feeling better. Renal function improving with Cr 1.52 from 2.07. 09/09 Patient is on partial rebreather with good sats. Afebrile. Renal function improving with Cr: 1.09 from 1.52. Remains on Bumex drip down 0.5mg/hr. 09/10 Patient was placed on Amio drip yesterday . Afebrile. Off Bumex drip. 09/11 No acute events overnight. Remains on Amio drip. On partial rebreather. CT chest last night showed no PE. 09/12 No acute events overnight. Remains on partial rebreather, off Amio drip. Afebrile. 09/13 Patient was intubated yesterday for resp distress and hypoxemia. Sedated with Diprivan and Fentanyl. Afebrile. On PRVC/AC RR 18, TV 550, PEEP: 10, FIO2 60%. Objective Vital Signs Date Time Temp Pulse Resp B/P Pulse Ox O2 Delivery O2 Flow Rate FiO2 09/13/16 06:00 73 09/13/16 04:18 94 60 09/13/16 04:00 Mechanical Ventilator 09/13/16 04:00 98.7 14 105/51 09/12/16 12:00 15.00 Intake and Output 09/12/16 09/12/16 09/13/16 08:00 16:00 00:00 Intake Total 107 ml 696 ml 532 ml Output Total 1000 ml 500 ml 250 ml Balance -893 ml 196 ml 282 ml Result Diagram: 09/13/16 0540 09/13/16 0540 Other Results Laboratory Tests Test 09/12/16 09/12/16 09/12/16 09/12/16 08:05 09:30 13:45 15:01 Blood Gas Puncture Site RT RADIAL RT RADIAL Blood Gas Patient Temperature 98.6 98.6 Blood Gas HCO3 30 mmol/L 28 mmol/L Blood Gas Base Excess 5.9 mmol/L 3.8 mmol/L Blood Gas Oxygen Saturation 87 % 93 % Arterial Blood pH 7.45 7.40 Arterial Blood Partial 44 mmHg 47 mmHg Pressure CO2 Arterial Blood Partial 59 mmHg 90 mmHg Pressure O2 Arterial Blood Oxygen Content 14.1 Vol % 14.3 Vol % Arterial Blood 2.5 % 2.5 % Carboxyhemoglobin Arterial Blood Methemoglobin 1.0 % 1.0 % Blood Gas Hemoglobin 11.5 G/DL 10.8 G/DL Oxygen Delivery Device PARTIAL VENTILATOR REBREATHER Blood Gas Liter Flow 15 L/M White Blood Count 12.4 TH/MM3 Red Blood Count 4.60 MIL/MM3 Hemoglobin 12.4 GM/DL Hematocrit 37.8 % Mean Corpuscular Volume 82.2 FL Mean Corpuscular Hemoglobin 27.0 PG Mean Corpuscular Hemoglobin 32.9 % Concent Red Cell Distribution Width 15.5 % Platelet Count 64 TH/MM3 Mean Platelet Volume 9.9 FL Neutrophils (%) (Auto) % Lymphocytes (%) (Auto) % Monocytes (%) (Auto) % Eosinophils (%) (Auto) % Basophils (%) (Auto) % Neutrophils # (Auto) TH/MM3 Lymphocytes # (Auto) TH/MM3 Monocytes # (Auto) TH/MM3 Eosinophils # (Auto) TH/MM3 Basophils # (Auto) TH/MM3 CBC Comment AUTO DIFF Differential Total Cells 100 Counted Neutrophils % (Manual) 85 % Lymphocytes % 7 % Monocytes % 6 % Eosinophils % 2 % Neutrophils # (Manual) 10.5 TH/MM3 Differential Comment FINAL DIFF MANUAL Platelet Estimate LOW Platelet Morphology Comment NORMAL Red Cell Morphology Comment NORMAL Sodium Level 134 MEQ/L Potassium Level 4.3 MEQ/L Chloride Level 94 MEQ/L Carbon Dioxide Level 30.5 MEQ/L Anion Gap 10 MEQ/L Blood Urea Nitrogen 24 MG/DL Creatinine 0.96 MG/DL Estimat Glomerular Filtration 77 ML/MIN Rate Random Glucose 276 MG/DL Calcium Level 8.9 MG/DL Blood Gas Ventilator Setting A/C 550/14/10PEEP Blood Gas Inspired Oxygen 100 % B-Type Natriuretic Peptide 840 PG/ML Test 09/13/16 05:40 White Blood Count 7.8 TH/MM3 Red Blood Count 3.59 MIL/MM3 Hemoglobin 9.8 GM/DL Hematocrit 29.9 % Mean Corpuscular Volume 83.2 FL Mean Corpuscular Hemoglobin 27.3 PG Mean Corpuscular Hemoglobin 32.8 % Concent Red Cell Distribution Width 16.0 % Platelet Count 50 TH/MM3 Mean Platelet Volume 11.0 FL Neutrophils (%) (Auto) 84.0 % Lymphocytes (%) (Auto) 8.4 % Monocytes (%) (Auto) 6.7 % Eosinophils (%) (Auto) 0.6 % Basophils (%) (Auto) 0.3 % Neutrophils # (Auto) 6.6 TH/MM3 Lymphocytes # (Auto) 0.7 TH/MM3 Monocytes # (Auto) 0.5 TH/MM3 Eosinophils # (Auto) 0.0 TH/MM3 Basophils # (Auto) 0.0 TH/MM3 CBC Comment AUTO DIFF Sodium Level 134 MEQ/L Potassium Level 5.1 MEQ/L Chloride Level 95 MEQ/L Carbon Dioxide Level 30.2 MEQ/L Anion Gap 9 MEQ/L Blood Urea Nitrogen 46 MG/DL Creatinine 1.41 MG/DL Estimat Glomerular Filtration 50 ML/MIN Rate Random Glucose 357 MG/DL Calcium Level 8.5 MG/DL Phosphorus Level 3.5 MG/DL Magnesium Level 2.2 MG/DL B-Type Natriuretic Peptide 419 PG/ML Imaging Last Impressions Chest X-Ray 09/12/16 0000 Signed Impressions: Service Date/Time: Monday, September 12, 2016 13:02 - CONCLUSION: 1. Endotracheal tube is now present. The brynn is not well-visualized but tube tip is estimated to be approximately 2 cm from the brynn. 2. Severe bilateral air space consolidation increased from the earlier exam. Frank Young MD Lower Extremity Ultrasound 09/11/16 0000 Signed Impressions: Service Date/Time: Sunday, September 11, 2016 12:30 - CONCLUSION: No DVT is identified within either lower extremity. Frank Young MD CT Angiography 09/10/16 0000 Signed Impressions: Service Date/Time: Sunday, September 11, 2016 01:05 - CONCLUSION: No evidence of pulmonary embolism. Frank Hardin MD Abdomen Ultrasound 09/07/16 0000 Signed Impressions: Service Date/Time: Wednesday, September 07, 2016 16:45 - CONCLUSION: Heterogeneous hepatic echotexture consistent with chronic liver disease. Splenomegaly Mild to moderate ascites Mildly thickened gallbladder wall without evidence of gallstones. No evidence of hydronephrosis. Isidro Oliver MD Upper Extremity Ultrasound 09/06/16 0000 Signed Impressions: Service Date/Time: Tuesday, September 06, 2016 20:43 - CONCLUSION: No evidence of DVT. Isidro Oliver MD Chest CT 09/05/16 0000 Signed Impressions: Service Date/Time: Monday, September 05, 2016 15:37 - CONCLUSION: 1. Cardiomegaly with diffuse ground glass densities and consolidation likely pulmonary edema and/or pneumonia. 2. Small bilateral pleural effusions. 3. Prominent lymphadenopathy in the mediastinum. Cameron Archer MD Objective Remarks Gen: 71-year-old male lying in bed intubated and sedated. Head: Normocephalic. Atraumatic. EENT: Pupils equal round and reactive to light. Cardiovascular: S1-S2 normal. Systolic murmur heard in the aortic area Respiratory: B/l equal air entry with few coarse BS. Abdomen: Soft, nontender, nondistended. No peritoneal signs. Musculoskeletal: No gross deformities. No edema. Skin: No obvious rashes or erythema. Neuro: Sedated A/P Assessment and Plan NEURO: -Monitor neuro status, avoid sedatives, antipsychotics. RESP: VDRF ARDS Pneumococcal pneumonia COPD exacerbation -On PRVC/AC RR 14, TV 550, PEEP:10, FIO2 60%. Decrease FIO2 as evelina. -Check CXR and ABG -Continue with vent support keep sat >92% -Bronchodilators. Solu-Medrol 40mg Q12 --09/12 CXR: Diffuse b/l airspace consolidation -09/10 CTA chest last night showed no PE CV: Severe aortic stenosis CHF NSTEMI -Monitor HR and BP keep MAP>65mmHg -Continue aspirin, Coreg 6.25mg BID, Hydralazine 50mg Q8, on pravastatin. -Echo showed EF 50-55%, mod-severe -Cardiothoracic surgery and cardiology Dr. Dudley is following -[facility] cancelled today due to worsening resp status and renal function discussed with Dr. Dudley. GI: -Elevated LFT's..trending down -On Glucerna 1.5@45ml/hr. -Protonix for GI prophylaxis -Monitor LFT's ( trending down) US abdomen: Heterogeneous hepatic echotexture consistent with chronic liver disease. Splenomegaly Mild to moderate ascites Mildly thickened gallbladder wall without evidence of gallstones. No evidence of hydronephrosis. : Acute kidney injury. Hyponatremia..resolving -Cr increased 1.41 from 0.96, UO: 1200 ml in 24 hrs -Monitor renal function, I/O's, avoid nephrotoxins. -Renal- Dr. Roa. Renal US: No hydronephrosis -d/c lasix and place on Bumex 2mg IV x1 then Bumex drip 1mg/hr. ID: Sepsis Pneumococcal pneumonia -Continue abx per ID (Teflaro).Monitor for signs of infections ( Fever, WBC) -Sputum culture positive for strep pneumo. Influenza negative -Recheck sputum cx, UA HEME: -Monitor CBC, CMP, coags. Hep PLT ab positive, follow up on TIGIST -Heme is following ENDO: Type 2 diabetes Hypothyroidism - SSI medium scale for glycemic control. -Continue Synthroid 50 mcg daily. TSH: 0.373 -Add Levemir 10u Q12 PROPH: -Bilateral lower extremity SCDs. Protonix for GI prophylaxis. Heparin SQ on hold for thrombocytopenia LINES: -Utilize peripheral IVs, CCT 30 mins Gerry Vivas MD Sep 13, 2016 07:56
[2016-09-13] MEDS ORDERED: BUMETANIDE INJ 1 MG/4 ML VIAL IV PUSH ONE (08:15)
[2016-09-13] MEDS: CHLORHEXIDINE 0.12% (ORAL KIT) 15 ML CUP MT SCH ×2 (08:29→19:50)
[2016-09-13] MEDS: INSULIN DETEMIR 100 UNITS/ML VIAL SQ SCH ×2 (08:30→19:49)
[2016-09-13] MEDS: DOCUSATE SODIUM 50 MG/SENNA 8.6 MG TAB PO SCH (08:30)
[2016-09-13] MEDS: PRIMIDONE 50 MG TAB PO SCH ×3 (08:31→17:53)
[2016-09-13] MEDS: SERTRALINE HCL 50 MG TAB PO SCH (08:31)
[2016-09-13] MEDS: FERROUS SULFATE 300 MG /5ML UDC PO SCH ×2 (08:31→19:48)
[2016-09-13] MEDS: CARVEDILOL 6.25 MG TAB PO SCH ×2 (08:32→19:49)
[2016-09-13] MEDS: PRAVASTATIN SOD 40 MG TAB PO SCH (08:32)
[2016-09-13] MEDS: ASPIRIN 81 MG CHEW TAB PO SCH (08:32)
[2016-09-13] MEDS: methylPREDNISolone SOD SUCC 40 MG/1 ML VIAL IV SCH ×2 (08:32→19:48)
--- NOTE | 2016-09-13 08:57 | RADRPT ---
EXAM DATE/TIME: 09/13/2016 07:57 [place] COMPARISON: CHEST SINGLE AP, September 12, 2016, 8:20. CHEST SINGLE AP, September 12, 2016, 13:02. INDICATIONS : Respiratory disease. MEDICAL HISTORY : Hypertension. Chronic obstructive pulmonary disease. Cardiovascular disease. Diabetes. SURGICAL HISTORY : None. ENCOUNTER: Subsequent ACUITY: 2 days PAIN SCORE: Non-responsive. LOCATION: Bilateral chest FINDINGS: Portable AP view of the chest demonstrates cardiac silhouette size at the lower limits for normal. En dotracheal tube tip measures approximately 3 cm from the brynn and NG tube courses beyond the GE baldemar ction. Multiple EKG lines overlie the patient. There is relatively diffuse airspace consolidation andrea aterally but overall improved since yesterday's examination. No pleural effusion or pneumothorax is a ppreciated. Bones demonstrate no acute finding. CONCLUSION: Diffuse bilateral airspace consolidation remains present but has improved since yesterday's examinati on. Frank Young MD on September 13, 2016 at 8:55 Board Certified Radiologist. This report was verified electronically.
--- NOTE | 2016-09-13 09:19 | HHI.IDPN ---
Subjective Subjective Remarks ID Coverage for Dr Henderson Mr. Gudino is a 71-year-old male with PMHx significant for COPD, aortic stenosis, hypertension and diabetes who presented to the emergency department with progressive shortness of breath and nonproductive cough for last 5 days. Notes reviewed Diagnosed with resistant Strep pneumo pneumonia. Also pulm edema from severe aortic stenosis. Yesterday required intubation and felt pulmnary edema as culprit for respiratory deterioration Temps ok BP om WBC normal No rash Not a lot of secretions in ET Has been diuresing Creatinine up to 1.4 Antibiotics Teflaro IV Lines Line sites with no e/o infection Past Medical History reviewed Allergies: Coded Allergies: Niacin (Unverified Allergy, Severe, GENERALIZED BURNING AND ITCHING, ) Objective . Vital Signs Date Time Temp Pulse Resp B/P Pulse Ox O2 Delivery O2 Flow Rate FiO2 09/13/16 08:29 95 70 09/13/16 06:00 73 09/13/16 04:18 94 60 09/13/16 04:00 94 Mechanical Ventilator 60 09/13/16 04:00 98.7 75 14 105/51 94 09/13/16 04:00 75 09/13/16 04:00 70 09/13/16 02:00 78 09/13/16 01:19 94 50 09/13/16 01:12 95 55 09/13/16 00:00 98.9 69 14 98/50 95 09/13/16 00:00 55 09/13/16 00:00 69 09/13/16 00:00 95 Mechanical Ventilator 50 09/12/16 22:15 95 55 09/12/16 22:00 68 09/12/16 20:09 94 60 09/12/16 20:00 60 09/12/16 20:00 98.4 69 14 81/42 94 09/12/16 20:00 69 09/12/16 20:00 94 Mechanical Ventilator 60 09/12/16 18:00 71 09/12/16 17:00 60 09/12/16 16:00 94 Mechanical Ventilator 70 09/12/16 16:00 98.4 74 16 99/51 93 09/12/16 16:00 70 09/12/16 16:00 74 09/12/16 15:36 90 70 09/12/16 14:00 69 09/12/16 12:53 93 100 09/12/16 12:45 100 09/12/16 12:45 100 Mechanical Ventilator 100 09/12/16 12:00 81 09/12/16 12:00 98.6 81 35 149/64 97 09/12/16 12:00 96 Bi-Pap 15.00 09/12/16 11:15 96 Bi-Pap 15.00 100 09/12/16 10:00 78 09/12/16 09/12/16 09/13/16 14:59 22:59 06:59 Intake Total 696 ml 532 ml 470 ml Output Total 500 ml 250 ml 450 ml Balance 196 ml 282 ml 20 ml Intake Oral 50 ml IV Total 646 ml 116 ml Tube Feeding 116 ml 270 ml Other 300 ml 200 ml Output Urine Total 500 ml 250 ml 450 ml # Bowel Movements 1 0 0 . Laboratory Tests Test 09/12/16 09/13/16 09:30 05:40 White Blood Count 12.4 TH/MM3 7.8 TH/MM3 Red Blood Count 4.60 MIL/MM3 3.59 MIL/MM3 Hemoglobin 12.4 GM/DL 9.8 GM/DL Hematocrit 37.8 % 29.9 % Mean Corpuscular Volume 82.2 FL 83.2 FL Mean Corpuscular Hemoglobin 27.0 PG 27.3 PG Mean Corpuscular Hemoglobin 32.9 % 32.8 % Concent Red Cell Distribution Width 15.5 % 16.0 % Platelet Count 64 TH/MM3 50 TH/MM3 Mean Platelet Volume 9.9 FL 11.0 FL Neutrophils (%) (Auto) % 84.0 % Lymphocytes (%) (Auto) % 8.4 % Monocytes (%) (Auto) % 6.7 % Eosinophils (%) (Auto) % 0.6 % Basophils (%) (Auto) % 0.3 % Neutrophils # (Auto) TH/MM3 6.6 TH/MM3 Lymphocytes # (Auto) TH/MM3 0.7 TH/MM3 Monocytes # (Auto) TH/MM3 0.5 TH/MM3 Eosinophils # (Auto) TH/MM3 0.0 TH/MM3 Basophils # (Auto) TH/MM3 0.0 TH/MM3 CBC Comment AUTO DIFF AUTO DIFF Differential Total Cells 100 Counted Neutrophils % (Manual) 85 % Lymphocytes % 7 % Monocytes % 6 % Eosinophils % 2 % Neutrophils # (Manual) 10.5 TH/MM3 Differential Comment FINAL DIFF AUTO DIFF MANUAL CONFIRMED Platelet Estimate LOW LOW Platelet Morphology Comment NORMAL NORMAL Red Cell Morphology Comment NORMAL Laboratory Tests Test 09/12/16 09/12/16 09/13/16 09:30 15:01 05:40 Sodium Level 134 MEQ/L 134 MEQ/L Potassium Level 4.3 MEQ/L 5.1 MEQ/L Chloride Level 94 MEQ/L 95 MEQ/L Carbon Dioxide Level 30.5 MEQ/L 30.2 MEQ/L Anion Gap 10 MEQ/L 9 MEQ/L Blood Urea Nitrogen 24 MG/DL 46 MG/DL Creatinine 0.96 MG/DL 1.41 MG/DL Estimat Glomerular Filtration 77 ML/MIN 50 ML/MIN Rate Random Glucose 276 MG/DL 357 MG/DL Calcium Level 8.9 MG/DL 8.5 MG/DL B-Type Natriuretic Peptide 840 PG/ML 419 PG/ML Phosphorus Level 3.5 MG/DL Magnesium Level 2.2 MG/DL Imaging Last Impressions Chest X-Ray 09/12/16 0000 Signed Impressions: Service Date/Time: Monday, September 12, 2016 13:02 - CONCLUSION: 1. Endotracheal tube is now present. The brynn is not well-visualized but tube tip is estimated to be approximately 2 cm from the brynn. 2. Severe bilateral air space consolidation increased from the earlier exam. Frank Young MD Lower Extremity Ultrasound 09/11/16 0000 Signed Impressions: Service Date/Time: Sunday, September 11, 2016 12:30 - CONCLUSION: No DVT is identified within either lower extremity. Frank Young MD CT Angiography 09/10/16 0000 Signed Impressions: Service Date/Time: Sunday, September 11, 2016 01:05 - CONCLUSION: No evidence of pulmonary embolism. Frank Hardin MD Abdomen Ultrasound 09/07/16 0000 Signed Impressions: Service Date/Time: Wednesday, September 07, 2016 16:45 - CONCLUSION: Heterogeneous hepatic echotexture consistent with chronic liver disease. Splenomegaly Mild to moderate ascites Mildly thickened gallbladder wall without evidence of gallstones. No evidence of hydronephrosis. Isidro Oliver MD Upper Extremity Ultrasound 09/06/16 0000 Signed Impressions: Service Date/Time: Tuesday, September 06, 2016 20:43 - CONCLUSION: No evidence of DVT. Isidro Oliver MD Chest CT 09/05/16 0000 Signed Impressions: Service Date/Time: Monday, September 05, 2016 15:37 - CONCLUSION: 1. Cardiomegaly with diffuse ground glass densities and consolidation likely pulmonary edema and/or pneumonia. 2. Small bilateral pleural effusions. 3. Prominent lymphadenopathy in the mediastinum. Cameron Archer MD Physical Exam GENERAL: Sedated on the vent, looks comfortable. FiO2 at 0.7 SKIN: Cool and dry. NO rash HEAD: Atraumatic. Normocephalic. No temporal or scalp tenderness. EYES: Pupils equal round and reactive. No scleral icterus. No injection or drainage. ENT: Nose without bleeding, or purulent drainage. He is orally intubated NECK: Trachea midline. Supple, nontender, no meningeal signs. CARDIOVASCULAR: Has systolic murmur at base of heart, heard also L precordium , lateral L chest. NO rub RESPIRATORY: Coarse bilateral breath sounds. Decreased air entry bilaterally. GASTROINTESTINAL: Abdomen soft, not distended, no reaction to deep palpation. Bowel sounds (+) MUSCULOSKELETAL: Extremities without clubbing, cyanosis,Has mild edema. Feet warm and well perfused NEURO: Sedated PSYCH: Unable to assess LINE: NO evidence of infection : [place] in place, urine looks clear Assessment & Plan Remarks IMPRESSION Sepsis Pneumococcal PNA, restsant starin - S to teflaro Acute resp failure on vent - possiby due to pulmonary edema, has known severe , BNP elevated - concern for new PNA< but he has no fever. WBC normal, not a lot of secretions Acute renal failure: sepsis, prerenal Acute transaminitis: sepsis Acute COPD exacerbation Severe Aortic Stenosis with Pulm edema RECS: Continue Teflaro IV (renal dose adjusted d.w Pharmacist in ICU) (ASP: PCN and Ceph resistant Strep Pneumo Pneumonia) Repeat sputum C/S Follow new C/S Monitor progress Spoke with family Jennifer Crenshaw MD Sep 13, 2016 09:19
--- NOTE | 2016-09-13 09:35 | PD.CAR.PN ---
CVT Progress Note Subjective/Hospital Course: The patient states that he felt very weak and could barely walk to the bathroom because he was so short of breath. He states that he also felt very hot , but did not measure his temperature at home. His gave him some old inhalers on Sunday 08/27, some Xanax on Monday 08/28, and some old diazepam medications every 4-5 hours, which calmed him down such that he was able to sleep. Worsening dyspnea , found to have bilateral infiltrates , initially treated for CPAP ABX now changed to Vanc and zosyn, pt had + trop, abnormal ECG, ween and eval by Dr Dudley pending cardiac cath, once resp status improves pmh: hypertension, aortic valvular disease ( Aortic stenosis ) , anxiety, depression, and BPH ECHO: aortic valve area 0.88, peak gradient of 47/ EF 50% 09/04 pt was on partial NRB mask this am, states he feels a little better, at bedside sputum , repeat blood cultures pending 09/13 pt intubated yesterday for resp distress, now on bumex gtt sedated on propofol, fentanly cath cancelled at this time Objective: GENERAL: orally intubated, sedated on vent SKIN: Warm and dry. HEAD: Normocephalic. EYES: No scleral icterus. No injection or drainage. NECK: Supple, trachea midline. No JVD or lymphadenopathy. CARDIOVASCULAR: 3/ sm, Regular rate and rhythm without murmurs, gallops, or rubs. RESPIRATORY: coarse bilateral breath sounds/ on vent Breath sounds equal bilaterally. No accessory muscle use. GASTROINTESTINAL: Abdomen soft, non-tender, nondistended. tolerating tube feeds MUSCULOSKELETAL: No cyanosis, or edema. BACK: Nontender without obvious deformity. No CVA tenderness. Vital Signs Date Time Temp Pulse Resp B/P Pulse Ox O2 Delivery O2 Flow Rate FiO2 09/13/16 08:29 95 70 09/13/16 06:00 73 09/13/16 04:18 94 60 09/13/16 04:00 94 Mechanical Ventilator 60 09/13/16 04:00 98.7 75 14 105/51 94 09/13/16 04:00 75 09/13/16 04:00 70 09/13/16 02:00 78 09/13/16 01:19 94 50 09/13/16 01:12 95 55 09/13/16 00:00 98.9 69 14 98/50 95 09/13/16 00:00 55 09/13/16 00:00 69 09/13/16 00:00 95 Mechanical Ventilator 50 09/12/16 22:15 95 55 09/12/16 22:00 68 09/12/16 20:09 94 60 09/12/16 20:00 60 09/12/16 20:00 98.4 69 14 81/42 94 09/12/16 20:00 69 09/12/16 20:00 94 Mechanical Ventilator 60 09/12/16 18:00 71 09/12/16 17:00 60 09/12/16 16:00 94 Mechanical Ventilator 70 09/12/16 16:00 98.4 74 16 99/51 93 09/12/16 16:00 70 09/12/16 16:00 74 09/12/16 15:36 90 70 09/12/16 14:00 69 09/12/16 12:53 93 100 09/12/16 12:45 100 09/12/16 12:45 100 Mechanical Ventilator 100 09/12/16 12:00 81 09/12/16 12:00 98.6 81 35 149/64 97 09/12/16 12:00 96 Bi-Pap 15.00 09/12/16 11:15 96 Bi-Pap 15.00 100 09/12/16 10:00 78 Labs: Laboratory Tests Test 09/13/16 05:40 White Blood Count 7.8 TH/MM3 (4.0-11.0) Red Blood Count 3.59 MIL/MM3 (4.50-5.90) Hemoglobin 9.8 GM/DL (13.0-17.0) Hematocrit 29.9 % (39.0-51.0) Mean Corpuscular Volume 83.2 FL (80.0-100.0) Mean Corpuscular Hemoglobin 27.3 PG (27.0-34.0) Mean Corpuscular Hemoglobin 32.8 % Concent (32.0-36.0) Red Cell Distribution Width 16.0 % (11.6-17.2) Platelet Count 50 TH/MM3 (150-450) Mean Platelet Volume 11.0 FL (7.0-11.0) Neutrophils (%) (Auto) 84.0 % (16.0-70.0) Lymphocytes (%) (Auto) 8.4 % (9.0-44.0) Monocytes (%) (Auto) 6.7 % (0.0-8.0) Eosinophils (%) (Auto) 0.6 % (0.0-4.0) Basophils (%) (Auto) 0.3 % (0.0-2.0) Neutrophils # (Auto) 6.6 TH/MM3 (1.8-7.7) Lymphocytes # (Auto) 0.7 TH/MM3 (1.0-4.8) Monocytes # (Auto) 0.5 TH/MM3 (0-0.9) Eosinophils # (Auto) 0.0 TH/MM3 (0-0.4) Basophils # (Auto) 0.0 TH/MM3 (0-0.2) CBC Comment AUTO DIFF Differential Comment AUTO DIFF CONFIRMED Platelet Estimate LOW (NORMAL) Platelet Morphology Comment NORMAL (NORMAL) Sodium Level 134 MEQ/L (136-145) Potassium Level 5.1 MEQ/L (3.5-5.1) Chloride Level 95 MEQ/L (98-107) Carbon Dioxide Level 30.2 MEQ/L (21.0-32.0) Anion Gap 9 MEQ/L (5-15) Blood Urea Nitrogen 46 MG/DL (7-18) Creatinine 1.41 MG/DL (0.60-1.30) Estimat Glomerular Filtration 50 ML/MIN (>89) Rate Random Glucose 357 MG/DL (74-106) Calcium Level 8.5 MG/DL (8.5-10.1) Phosphorus Level 3.5 MG/DL (2.5-4.9) Magnesium Level 2.2 MG/DL (1.5-2.5) B-Type Natriuretic Peptide 419 PG/ML (0-100) Result Diagram: 09/13/1640 09/13/16539 (1) NSTEMI (non-ST elevated myocardial infarction) Plan: cath on hold per cardiology 2/2 worsening resp failure, requiring intubation (2) Aortic stenosis Plan: Mean gradient reportedly only 20 mm Hg by echo. Exam difficult, possibly only moderate . For cath for further evaluation tomorrow. (3) Congestive heart failure (CHF) Plan: Diffuse parenchymal opacities on CXR. Suspect pulmonary edema. Good diuresis past 24 hours. on Bumex gtt (4) Hypertension Plan: Mildly hypotensive last night. Continue to monitor. Problem Qualifiers (1) Aortic stenosis: Qualified Code: I35.0 - Aortic valve stenosis, unspecified etiology (2) Congestive heart failure (CHF): (3) Hypertension: Qualified Code: I10 - Essential hypertension Elvira Allen Sep 13, 2016 09:35
[2016-09-13 10:04] LABS: BLOOD GAS BASE EXCESS 4.1 mmol/L (-2-2); BLOOD GAS CARBOXYHEMOGLOBIN 2.4 % (0-4); BLOOD GAS HCO3 29 mmol/L (22-26); BLOOD GAS METHEMOGLOBIN 1.1 % (0-2); BLOOD GAS O2 HGB SATURATION 92 % (90-100); BLOOD GAS OXYGEN CONTENT 12.8 Vol % (12.0-20.0); BLOOD GAS PCO2 54 mmHg (38-42); BLOOD GAS PO2 78 mmHg (61-120); BLOOD GAS TOTAL HGB 9.9 G/DL (12.0-16.0); TEMP CORR TO 98.6
[2016-09-13 10:07] LABS: CRITICAL VALUE YES; DRAW SITE LT RADIAL; FIO2 70 %; NUMBER OF ARTERIAL PUNCTURES 2; OXYGEN DEVICE VENTILATOR; STAT NO; ULNAR PULSE PRESENT
[2016-09-13] MEDS ORDERED: BUMETANIDE INJ 100 ML IV SCH ×2 (10:15→15:00)
--- NOTE | 2016-09-13 10:21 | EKG ---
Date Performed: 09/12/2016 Time Performed: 14:23:20 PTAGE: 71 years EKG: Sinus rhythm POSSIBLE LEFT ATRIAL ENLARGEMENT NONSPECIFIC ST & T-WAVE ABNORMALITY BORDERLINE ECG Compared to prio r tracing no significant change PREVIOUS TRACING : 09/05/2016 07.57 DOCTOR: Robert Person Interpretating Date/Time 09/13/2016 10:19:38
--- NOTE | 2016-09-13 11:33 | HHI.NPPN ---
Subjective Complaints: Confused, Shortness of Breath General Problems: Edema Renal Failure: Chronic, Acute Interval History He was intubated for hypoxia. Sedated currently. He was started on Bumex gtt. Renal function is worse. He does not appear fluid overloaded. (Prachi Palencia) Review of Systems General General Remarks unable to evaluate (Prachi Palencia) Objective Data Data 09/12/16 09/13/16 19:00 07:00 Intake Total 696 ml 1002 ml Output Total 500 ml 700 ml Balance 196 ml 302 ml Intake Oral 50 ml IV Total 646 ml 116 ml Tube Feeding 386 ml Other 500 ml Output Urine Total 500 ml 700 ml # Bowel Movements 1 0 Vital Signs Date Time Temp Pulse Resp B/P Pulse Ox O2 Delivery O2 Flow Rate FiO2 09/13/16 10:20 97 70 09/13/16 08:29 95 70 09/13/16 06:00 73 09/13/16 04:18 94 60 09/13/16 04:00 94 Mechanical Ventilator 60 09/13/16 04:00 98.7 75 14 105/51 94 09/13/16 04:00 75 09/13/16 04:00 70 09/13/16 02:00 78 09/13/16 01:19 94 50 09/13/16 01:12 95 55 09/13/16 00:00 98.9 69 14 98/50 95 09/13/16 00:00 55 09/13/16 00:00 69 09/13/16 00:00 95 Mechanical Ventilator 50 09/12/16 22:15 95 55 09/12/16 22:00 68 09/12/16 20:09 94 60 09/12/16 20:00 60 09/12/16 20:00 98.4 69 14 81/42 94 09/12/16 20:00 69 09/12/16 20:00 94 Mechanical Ventilator 60 09/12/16 18:00 71 09/12/16 17:00 60 09/12/16 16:00 94 Mechanical Ventilator 70 09/12/16 16:00 98.4 74 16 99/51 93 09/12/16 16:00 70 09/12/16 16:00 74 09/12/16 15:36 90 70 09/12/16 14:00 69 09/12/16 12:53 93 100 09/12/16 12:45 100 09/12/16 12:45 100 Mechanical Ventilator 100 09/12/16 12:00 81 09/12/16 12:00 98.6 81 35 149/64 97 09/12/16 12:00 96 Bi-Pap 15.00 (Prachi Palencia) -: 09/13/16 0540 09/13/16 0540 Imaging Last 72 hours Impressions Chest X-Ray 09/13/16 0000 Signed Impressions: Service Date/Time: Tuesday, September 13, 2016 07:57 - CONCLUSION: Diffuse bilateral airspace consolidation remains present but has improved since yesterday's examination. Frank Young MD Chest X-Ray 09/12/16 0000 Signed Impressions: Service Date/Time: Monday, September 12, 2016 13:02 - CONCLUSION: 1. Endotracheal tube is now present. The brynn is not well-visualized but tube tip is estimated to be approximately 2 cm from the brynn. 2. Severe bilateral air space consolidation increased from the earlier exam. Frank Young MD Chest X-Ray 09/12/16 0000 Signed Impressions: Service Date/Time: Monday, September 12, 2016 08:20 - CONCLUSION: Severe diffuse bilateral interstitial opacity and airspace consolidation. Compared to the prior chest x-ray it is either stable to mildly increased. Frank Young MD Lower Extremity Ultrasound 09/11/16 0000 Signed Impressions: Service Date/Time: Sunday, September 11, 2016 12:30 - CONCLUSION: No DVT is identified within either lower extremity. Frank Young MD Tubes & Lines: [place] Drip Comment bumex, fentanyl, versed (Prachi Palencia) Physical Exam General Appearance: Well Developed, Well Nourished, No Acute Distress Appearance Remarks intubated/sedated/unresponsive (Prachi Palencia) Throat Throat Exam: Oral Mucosa [place] & Moist (Prachi Palencia) Pulmonary Resp Exam: Breath Sounds Equal, Crackles, Decreased Bases (Prachi Palencia) Cardiology CV Exam: Regular, Good Perfusion (Prachi Palencia) Gastrointestinal/Abdomen GI Exam: Soft, Non-Tender, Bowel Sounds Present (Prachi Palencia [employer]) Genitourinary Exam: Clear Urine (Prachi PalenciaP) Musculoskeletal MS Exam: Joints Intact, Normal Gait, Normal Tone (Prachi Palencia [employer]) Integumentary Skin Exam: Clear, Warm, Dry, Intact, Tenting (Prachi Palencia [employer]) Extremeties Extremities Exam: No Edema, Pedal Pulses Palpable (Prachi Palencia [employer]) Neurologic Neuro Exam: Alert, Awake, Speech Clear, Moving All Extremities (Prachi Palencia [employer]) Psychiatric Psych Exam: Appropriate Responses (Prachi Palencia) Assessment/Plan Discussed Condition With: Patient, Relative Assessment Summary: PHILIPPE/Acute Renal Failure Problem List: (1) PHILIPPE (acute kidney injury) Plan: initial ARF due to ATN, due to hypoperfusion injury (sepsis, hypotension , A fib RVR); that has resolved he was started on Bumex gtt, creatinine is worse. He does not appear fluid overloaded at this time stop Bumex, start 1/2 NS @ 50 ml/hr cautious hydration, follow renal function K 5.1, repeat in am daily renal panel he is non oliguric. (2) Congestive heart failure (CHF) Plan: monitor fluid volume status (3) Diabetes Plan: continue insulin therapy monitor glucose, goal 140-180 mg/dL (4) Hypertension Plan: not on pressors monitor BP, medicate per admitting team (5) Severe sepsis Plan: previously being treated for strep pneumonia ID following, on Teflaro WBC normalized (6) Aortic stenosis Plan: CT following plan for heart cath when clinically improved (7) A-fib Plan: off Amiodarone gtt (Prachi Palencia. [employer]) Plan patient was seen and examined. By clinical exam, he appears dry. However, discussed with Dr. Gonzalez who has discussed with Dr. Dudley. He has hypoxia, ARDS type picture. To continue Bumex until this evening. Monitor response. Repeat Xray. Likely has pneumonia. (Gentry Roa MD) Problem Qualifiers (1) Congestive heart failure (CHF): (2) Diabetes: (3) Hypertension: Qualified Code: I10 - Essential hypertension (4) Aortic stenosis: Qualified Code: I35.0 - Aortic valve stenosis, unspecified etiology Prachi Palencia Sep 13, 2016 11:33 Gentry Roa MD Sep 13, 2016 15:57
--- NOTE | 2016-09-13 11:44 | PD.ONC.PN ---
Subjective Subjective Remarks Afebrile overnight. Patient intubated. sedated. at bedside. Objective Data Date Time Temp Pulse Resp B/P Pulse Ox O2 Delivery O2 Flow Rate FiO2 09/13/16 11:34 93 70 09/13/16 10:20 97 70 09/13/16 08:29 95 70 09/13/16 06:00 73 09/13/16 04:18 94 60 09/13/16 04:00 94 Mechanical Ventilator 60 09/13/16 04:00 98.7 75 14 105/51 94 09/13/16 04:00 75 09/13/16 04:00 70 09/13/16 02:00 78 09/13/16 01:19 94 50 09/13/16 01:12 95 55 09/13/16 00:00 98.9 69 14 98/50 95 09/13/16 00:00 55 09/13/16 00:00 69 09/13/16 00:00 95 Mechanical Ventilator 50 09/12/16 22:15 95 55 09/12/16 22:00 68 09/12/16 20:09 94 60 09/12/16 20:00 60 09/12/16 20:00 98.4 69 14 81/42 94 09/12/16 20:00 69 09/12/16 20:00 94 Mechanical Ventilator 60 09/12/16 18:00 71 09/12/16 17:00 60 09/12/16 16:00 94 Mechanical Ventilator 70 09/12/16 16:00 98.4 74 16 99/51 93 09/12/16 16:00 70 09/12/16 16:00 74 09/12/16 15:36 90 70 09/12/16 14:00 69 09/12/16 12:53 93 100 09/12/16 12:45 100 09/12/16 12:45 100 Mechanical Ventilator 100 09/12/16 12:00 81 09/12/16 12:00 98.6 81 35 149/64 97 09/12/16 12:00 96 Bi-Pap 15.00 09/13/16 09/13/16 09/13/16 07:00 15:00 23:00 Intake Total 470 ml Output Total 450 ml Balance 20 ml Result Diagram: 09/13/16 0540 09/13/16 0540 Laboratory Results Laboratory Tests Test 09/12/16 09/12/16 09/13/16 09/13/16 13:45 15:01 05:40 09:49 Blood Gas Puncture Site RT RADIAL LT RADIAL Blood Gas Patient Temperature 98.6 98.6 Blood Gas HCO3 28 mmol/L 29 mmol/L Blood Gas Base Excess 3.8 mmol/L 4.1 mmol/L Blood Gas Oxygen Saturation 93 % 92 % Arterial Blood pH 7.40 7.35 Arterial Blood Partial 47 mmHg 54 mmHg Pressure CO2 Arterial Blood Partial 90 mmHg 78 mmHg Pressure O2 Arterial Blood Oxygen Content 14.3 Vol % 12.8 Vol % Arterial Blood 2.5 % 2.4 % Carboxyhemoglobin Arterial Blood Methemoglobin 1.0 % 1.1 % Blood Gas Hemoglobin 10.8 G/DL 9.9 G/DL Oxygen Delivery Device VENTILATOR VENTILATOR Blood Gas Ventilator Setting A/C 550/14/10PEEP Blood Gas Inspired Oxygen 100 % 70 % B-Type Natriuretic Peptide 840 PG/ML 419 PG/ML White Blood Count 7.8 TH/MM3 Red Blood Count 3.59 MIL/MM3 Hemoglobin 9.8 GM/DL Hematocrit 29.9 % Mean Corpuscular Volume 83.2 FL Mean Corpuscular Hemoglobin 27.3 PG Mean Corpuscular Hemoglobin 32.8 % Concent Red Cell Distribution Width 16.0 % Platelet Count 50 TH/MM3 Mean Platelet Volume 11.0 FL Neutrophils (%) (Auto) 84.0 % Lymphocytes (%) (Auto) 8.4 % Monocytes (%) (Auto) 6.7 % Eosinophils (%) (Auto) 0.6 % Basophils (%) (Auto) 0.3 % Neutrophils # (Auto) 6.6 TH/MM3 Lymphocytes # (Auto) 0.7 TH/MM3 Monocytes # (Auto) 0.5 TH/MM3 Eosinophils # (Auto) 0.0 TH/MM3 Basophils # (Auto) 0.0 TH/MM3 CBC Comment AUTO DIFF Differential Comment AUTO DIFF CONFIRMED Platelet Estimate LOW Platelet Morphology Comment NORMAL Sodium Level 134 MEQ/L Potassium Level 5.1 MEQ/L Chloride Level 95 MEQ/L Carbon Dioxide Level 30.2 MEQ/L Anion Gap 9 MEQ/L Blood Urea Nitrogen 46 MG/DL Creatinine 1.41 MG/DL Estimat Glomerular Filtration 50 ML/MIN Rate Random Glucose 357 MG/DL Calcium Level 8.5 MG/DL Phosphorus Level 3.5 MG/DL Magnesium Level 2.2 MG/DL Imaging Studies Last 24 hours Impressions Chest X-Ray 09/13/16 0000 Signed Impressions: Service Date/Time: Tuesday, September 13, 2016 07:57 - CONCLUSION: Diffuse bilateral airspace consolidation remains present but has improved since yesterday's examination. Frank Young MD Administered Medications Medications (Trade) Dose Ordered Sig/Dev Route PRN Reason Start Time Stop Time Status Last Admin Dose Admin IV Flush (NS Flush) 2 ml UNSCH PRN IVF FLUSH AFTER USING IV ACCESS 08/31/16 11:15 09/12/16 08:34 Buspirone HCl (Buspar) 10 mg BID PO 08/31/16 21:00 Hold 09/12/16 08:33 Levothyroxine Sodium (Synthroid) 50 mcg DAILY@06 PO 09/01/16 06:00 09/13/16 04:38 Pravastatin Sodium (Pravachol) 40 mg DAILY PO 09/01/16 09:00 09/13/16 08:32 Pregabalin (Lyrica) 150 mg BID PO 08/31/16 21:00 Hold 09/12/16 08:34 Primidone (Mysoline) 100 mg TID PO 08/31/16 18:00 09/13/16 08:31 Trazodone HCl (Desyrel) 100 mg HS PO 08/31/16 21:00 09/12/16 19:27 Heparin Sodium (Porcine) (Heparin Inj) 5,000 units Q8HR SQ 09/01/16 14:00 Hold 09/06/16 13:27 Alprazolam (Xanax) 0.5 mg Q12HR PRN PO ANXIETY 09/01/16 14:45 09/08/16 12:58 Miscellaneous Information Patient in critical care unit? Ass... [id number] XX 09/04/16 20:00 09/04/16 20:00 Morphine Sulfate (Morphine Inj) 2 mg Q4H PRN IV PAIN 1 TO 10 09/05/16 11:30 09/06/16 16:06 Carvedilol (Coreg) 6.25 mg Q12HR PO 09/06/16 09:00 09/13/16 08:32 Chlorhexidine Gluconate (Peridex 0.12% Liq) 15 ml BID@08,20 MT 09/06/16 20:00 09/13/16 08:29 Senna/Docusate Sodium (Shantelle-Colace) 2 tab DAILY PO 09/06/16 17:45 09/13/16 08:30 Lorazepam (Ativan Inj) 0.25 mg Q6H PRN IV PUSH ANXIETY 09/06/16 17:45 09/12/16 04:53 Methylprednisolone Sodium Succinate (SoluMEDROL INJ) 40 mg Q12H IV 09/08/16 09:00 09/13/16 08:32 Hydralazine HCl 10 mg 10 mg Q6H PRN IV SBP> OR = 160, DBP> OR = 100 09/09/16 03:15 09/09/16 04:10 Ceftaroline Fosamil/Sodium Chloride (Teflaro Inj/NS Inj) 100 ml @ 100 mls/hr Q12H IV 09/10/16 00:00 09/13/16 00:41 Insulin Human Regular (NovoLIN R SUPPLEMENTAL SCALE) 1 Q6H SQ 09/11/16 08:00 09/13/16 08:28 Aspirin (Aspirin Chew) 81 mg DAILY PO 09/12/16 09:00 09/13/16 08:32 Hydralazine HCl (Apresoline) 50 mg Q8HR PO 09/12/16 08:00 09/12/16 13:42 Sertraline HCl 50 mg 50 mg DAILY PO 09/13/16 09:00 09/13/16 08:31 Propofol 100 ml @ 0 mls/hr TITRATE IV 09/12/16 12:45 09/12/16 18:56 Fentanyl Citrate (fentaNYL DRIP) 250 ml @ 0 mls/hr TITRATE IV 09/12/16 15:00 09/13/16 06:54 Ferrous Sulfate (Ferrous Sulfate Liq) 300 mg BID PO 09/12/16 21:00 09/13/16 08:31 Insulin Detemir (Levemir Inj) 10 units Q12HR SQ 09/13/16 09:00 09/13/16 08:30 Objective Remarks GENERAL: intubated, supine male. SKIN: Warm and dry. no bleeding from lines. HEAD: Normocephalic. EYES: no injection or drainage. NECK: Supple, trachea midline. LYMPHATIC: No adenopathy. CARDIOVASCULAR: +S1/S2 RESPIRATORY: anterior gallardo clear, on mechanical ventilation. GASTROINTESTINAL: Abdomen soft, non-tender, nondistended. EXTREMITIES: No cyanosis, or edema. NEUROLOGICAL: intubated, sedated Assessment/Plan Problem List: (1) Thrombocytopenia Status: Acute Plan: --multifactorial d/t sepsis +/- medication effect (i.e. 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 --possibility of DIC --HIT positive--likely false positive, will await TIGIST --Shabbir negative --LDH/haptoglobin both elevated --Abdominal u/s showed chronic liver disease + splenomegaly (2) Normocytic anemia Status: Acute Plan: --haptoglobin/LDH both elevated, which is not consistent with hemolysis --Shabbir negative --stool Hemoccult negative (3) Severe sepsis Status: Resolved Plan: --+pneumonia --on antibiotic (4) Transaminitis Status: Acute Plan: --hepatitis panel negative (5) Aortic stenosis Status: Acute Plan: --Severe aortic stenosis with CHF --currently being managed by cardiology and CT surgery. Assessment 71y/o male admitted with NSTEMI, COPD exacerbation, and pneumonia. Hematology consulted for acute thrombocytopenia. history of COPD, hypertension, diabetes aortic stenosis Plan 1. await TIGIST 2. monitor CBC Attending Statement The exam, history, and the medical decision-making described in the above note were completed with the assistance of the mid-level provider. I reviewed and agree with the findings presented. I attest that I had a [id number] encounter with the patient on the same day, and personally performed and documented my assessment and findings in the medical record. critically ill. TIGIST pending. Thrombocytopenia due to DIC/consumption Problem Qualifiers (1) Aortic stenosis: Qualified Code: I35.0 - Aortic valve stenosis, unspecified etiology Iman Chin Sep 13, 2016 11:44 Cesar Vieyra MD Sep 13, 2016 20:34
[2016-09-13] MEDS ORDERED: SODIUM CHLOR 0.45% 1000 ML INJ 1,000 ML IV SCH (12:00)
[2016-09-13] MEDS: PROPOFOL 1000 MG/100 ML INJ 100 ML IV SCH ×2 (12:35→19:48)
--- NOTE | 2016-09-13 13:10 | HHI.FPPN ---
Subjective Remarks Patient intubated on 09/12 secondary to respiratory distress and hypoxemia. He is currently sedated with propofol and fentanyl. at bedside. On PRVC/AC, Respiratory rate 18, tidal volume 550, PEEP: 10, FIO2 60%. (Eko,Rupali U R1 ) Objective Vitals Vital Signs Date Time Temp Pulse Resp B/P Pulse Ox O2 Delivery O2 Flow Rate FiO2 09/13/16 12:00 98.2 72 16 125/58 92 09/13/16 12:00 70 09/13/16 12:00 92 Mechanical Ventilator 70 09/13/16 12:00 72 09/13/16 11:34 93 70 09/13/16 10:20 97 70 09/13/16 10:00 76 09/13/16 08:29 95 70 09/13/16 08:00 98.2 76 14 111/55 92 09/13/16 08:00 76 09/13/16 08:00 60 09/13/16 08:00 92 Mechanical Ventilator 60 09/13/16 06:00 73 09/13/16 04:18 94 60 09/13/16 04:00 94 Mechanical Ventilator 60 09/13/16 04:00 98.7 75 14 105/51 94 09/13/16 04:00 75 09/13/16 04:00 70 09/13/16 02:00 78 09/13/16 01:19 94 50 09/13/16 01:12 95 55 09/13/16 00:00 98.9 69 14 98/50 95 09/13/16 00:00 55 09/13/16 00:00 69 09/13/16 00:00 95 Mechanical Ventilator 50 09/12/16 22:15 95 55 09/12/16 22:00 68 09/12/16 20:09 94 60 09/12/16 20:00 60 09/12/16 20:00 98.4 69 14 81/42 94 09/12/16 20:00 69 09/12/16 20:00 94 Mechanical Ventilator 60 09/12/16 18:00 71 09/12/16 17:00 60 09/12/16 16:00 94 Mechanical Ventilator 70 09/12/16 16:00 98.4 74 16 99/51 93 09/12/16 16:00 70 09/12/16 16:00 74 09/12/16 15:36 90 70 09/12/16 14:00 69 I/O 09/12/16 09/12/16 09/12/16 09/13/16 09/13/16 09/13/16 07:00 15:00 23:00 07:00 15:00 23:00 Intake Total 107 ml 696 ml 532 ml 470 ml Output Total 1000 ml 500 ml 250 ml 450 ml Balance -893 ml 196 ml 282 ml 20 ml Intake Oral 50 ml IV Total 107 ml 646 ml 116 ml Tube Feeding 116 ml 270 ml Other 300 ml 200 ml Output Urine Total 1000 ml 500 ml 250 ml 450 ml # Bowel Movements 1 0 0 (Rupali Eddy MD R1) Result Diagram: 09/13/16 0540 09/13/16 1010 Objective Remarks Gen.: Lying in bed, intubated, sedated Head: Normocephalic. Atraumatic. EENT: Pupils equal round and reactive to light. Nose without drainage. Airway intact. Cardiovascular: Regular rate and rhythm. 2/6 systolic ejection murmur along left sternal border. Respiratory: CTAB bilaterally Abdomen: Soft, nontender, nondistended. No peritoneal signs. Musculoskeletal: No gross deformities. No edema. Skin: No obvious rashes or erythema. Neuro: Intubated, sedated (Rupali Eddy MD R1) A/P Assessment and Plan 71-year-old male who presented with a 5-day history of shortness of breath and nonproductive cough. ACS rule out positive for NSTEMI. Patient has a history of COPD and was admitted with sepsis with cardiology consultation for NSTEMI. Developed respiratory distress on 09/04 and was transferred to the ICU with critical care consult. Tolerated BiPAP vs nonrebreather vs nasal cannula for several days, but due to worsening respiratory distress, he was intubated on 09/12. Cardiology to perform left heart catheterization when clinically better. Pulmonology on board. Nephrology consulted for PHILIPPE. Hematology consulted due to thrombocytopenia. Discharge Planning Pending clinical improvement (Rupali Eddy MD R1) Attending Attestation Patient seen and examined with the resident team. Case reviewed and discussed Agree with plan of care as discussed with me and documented in the resident note. (She Harris MD) Problem List: (1) Respiratory distress Status: Acute Plan: Intubated and sedated in the ICU -Critical care managing - will follow recs -Decrease FiO2 as tolerated -Solu-Medrol 40 mg every 12 hours -DuoNebs every 6 hours -I's and O's -Daily weights (2) NSTEMI (non-ST elevated myocardial infarction) Status: Acute Plan: -Patient with elevated troponins to 1.[address] elevations in V1 V3 on admission -Cardiology following -Left heart catheter when clinically able to tolerate procedure (3) Aortic stenosis Status: Acute Plan: -Cardiothoracic surgery consulted -Cardiology and cardiothoracic surgery to discuss plans going forward -Will need to optimize medical management prior to performing any procedures -Pulmonology consulted given high surgical risk- appreciate recommendations (4) Pneumonia Status: Acute Plan: -Strep pneumoniae in sputum culture Infectious disease consult - Ceftarolin 300 mg IV every 12 hours (started on 09/07-) (5) CHF due to valvular disease Status: Acute Plan: Echo performed on 09/02 showed EF of 5055 percent. -Aortic valve with moderate to severe stenosis -Coreg 3.125 mg by mouth every 12 hours (6) PHILIPPE (acute kidney injury) Status: Acute Plan: -Worsened renal function today -Jumped from 0.96-1.41 -Nephrology on board -Monitor I's and O's -Avoid nephrotoxins -On Bumex drip per critical care (7) Thrombocytopenia Status: Acute Plan: -Platelets dropped to 50 today -Decreased aspirin to 81mg daily -Hematology consulted -Suspect ITP versus DIC -Heparin subcutaneous discontinued -HIT positive, but likely false positive, TIGIST pending -Hepatitis panel negative -Abdominal ultrasound on 09/07 shows heterogeneous hepatic echo texture consistent with chronic liver disease, splenomegaly, mild to moderate ascites -Continue to monitor, await TIGIST (8) Diabetes Status: Acute Plan: Patient's home regimen is NPH 25 units every morning and 50 units daily at bedtime -Intubated, on tube feeds -Currently on Levemir 10 units twice a day per critical care -Continue Medium SSI -Adjust insulin regimen as needed (9) COPD exacerbation Status: Acute Plan: Patient with known COPD and [id number] history of smoking Albuterol every 2 hours when necessary DuoNeb nebs every 4 hours scheduled Solu-Medrol 40 mg every 12 hours (10) Hyponatremia Status: Acute Plan: -Pseudohyponatremia vs SIADH vs some element of both -Serum osmolality elevated at 304 -Uric acid within normal limits -Will follow with daily BMPs -Strict I's and O's (11) Hypertension Status: Acute Plan: Continue Coreg. Hydralazine when necessary. Continue losartan (12) Anxiety and depression Status: Acute Plan: -Continue home meds on adjusted regimen -Trazodone 100 mg by mouth daily - hold -Sertraline 100 mg by mouth daily - taper to 50mg today -Buspirone 10mg BID - hold -Primidone 100mg PO BID - continue (13) BPH (benign prostatic hyperplasia) Status: Acute Plan: -History of BPH -Patient states history of using Flomax but not on current list of medications -Will consider starting Flomax if patient has symptoms (14) Severe sepsis Status: Resolved Plan: Septic on admission On Ceftarolin IV as above Repeat blood cultures negative to date Abx History: -Vancomycin 1250mg IV Q12h with pharmacy consult and Zosyn 3.375mg IV Q6h (dc ) -Azithromycin 500 mg by mouth every 24 hours started on 09/01. Dc'd on 09/07 (15) FEN/DVT PPX/GI PPX Status: Acute Plan: Fluids: NS @ 50 mls/hr Electrolytes: Will monitor and replace as needed Nutrition: Tube feeds DVT Prophylaxis: Bilateral SCDs, heparin discontinued due to thrombocytopenia GI Prophylaxis: None currently (Rupali Eddy MD R1) Problem Qualifiers (1) Aortic stenosis: Qualified Code: I35.0 - Aortic valve stenosis, unspecified etiology (2) Pneumonia: Qualified Code: J18.9 - Pneumonia of both lungs due to infectious organism, unspecified part of lung (3) Diabetes: (4) Hypertension: Qualified Code: I10 - Essential hypertension Rupali Eddy MD R1 Sep 13, 2016 13:09 She Harris MD Sep 13, 2016 16:38
[2016-09-13 14:21] LABS: APTT (PATIENT) 28.9 SEC (24.3-30.1); INTERNATIONAL NORMALIZED RATIO 1.1 RATIO; PROTHROMBIN TIME - PATIENT 12.5 SEC (9.8-11.6)
--- NOTE | 2016-09-13 16:39 | HHI.PR ---
Subjective Remarks 71 YOWM with Resp insuf, COPD,Lung infilt On 6 LNC No fever at BS Pt intubated On AC 16,Fi02 70% Sedated Objective Vital Signs Vital Signs Date Time Temp Pulse Resp B/P Pulse Ox O2 Delivery O2 Flow Rate FiO2 09/13/16 16:34 98.4 82 23 120/60 93 09/13/16 16:33 70 09/13/16 16:32 93 Mechanical Ventilator 70 09/13/16 16:26 81 09/13/16 14:00 78 09/13/16 12:00 98.2 72 16 125/58 92 09/13/16 12:00 70 09/13/16 12:00 92 Mechanical Ventilator 70 09/13/16 12:00 72 09/13/16 11:34 93 70 09/13/16 10:20 97 70 09/13/16 10:00 76 09/13/16 08:29 95 70 09/13/16 08:00 98.2 76 14 111/55 92 09/13/16 08:00 76 09/13/16 08:00 60 09/13/16 08:00 92 Mechanical Ventilator 60 09/13/16 06:00 73 09/13/16 04:18 94 60 09/13/16 04:00 94 Mechanical Ventilator 60 09/13/16 04:00 98.7 75 14 105/51 94 09/13/16 04:00 75 09/13/16 04:00 70 09/13/16 02:00 78 09/13/16 01:19 94 50 09/13/16 01:12 95 55 09/13/16 00:00 98.9 69 14 98/50 95 09/13/16 00:00 55 09/13/16 00:00 69 09/13/16 00:00 95 Mechanical Ventilator 50 09/12/16 22:15 95 55 09/12/16 22:00 68 09/12/16 20:09 94 60 09/12/16 20:00 60 09/12/16 20:00 98.4 69 14 81/42 94 09/12/16 20:00 69 09/12/16 20:00 94 Mechanical Ventilator 60 09/12/16 18:00 71 09/12/16 17:00 60 I/O 3/5/17 3/5/17 09/12/16 09/13/16 09/13/16 09/13/16 07:00 15:00 23:00 07:00 15:00 23:00 Intake Total 107 ml 696 ml 532 ml 470 ml 910 ml Output Total 1000 ml 500 ml 250 ml 450 ml 900 ml Balance -893 ml 196 ml 282 ml 20 ml 10 ml Intake Oral 50 ml IV Total 107 ml 646 ml 116 ml 559 ml Tube Feeding 116 ml 270 ml 351 ml Other 300 ml 200 ml Output Urine Total 1000 ml 500 ml 250 ml 450 ml 900 ml # Bowel Movements 1 0 0 0 Result Diagram: 09/13/16 0540 09/13/16 1010 Objective Remarks GENERAL: Obese WM, mild sob SKIN: Warm and dry. HEAD: Normocephalic. EYES: No scleral icterus. No injection or drainage. NECK: Supple, trachea midline. No JVD or lymphadenopathy. CARDIOVASCULAR: Regular rate and rhythm without murmurs, gallops, or rubs. RESPIRATORY: Breath sounds equal bilaterally. No accessory muscle use. GASTROINTESTINAL: Abdomen soft, non-tender, nondistended. MUSCULOSKELETAL: No cyanosis, or edema. BACK: Nontender without obvious deformity. No CVA tenderness. A/P Assessment and Plan Resp Failure, on Vent COPD Lung infilt DM Ch. Pain PLAN: Cont Abx IV Solumedrol Vent Support, AC16, Fi02 70% Aerosol nebs Monitor BS Amiodarone Kai Goodwin MD Sep 13, 2016 16:39
[2016-09-13] MEDS: PANTOPRAZOLE SODIUM 40 MG VIAL IV PUSH SCH (17:53)
[2016-09-13] MEDS: traZODone HCL 100 MG TAB PO SCH (19:48)
[2016-09-14] VITALS (20 sets, daily range): BP systolic 110–135; BP diastolic 56–64; PULSE 68–79; RESP 10–21; TEMP 98–99.2; O2SAT 91–95
[2016-09-14] MEDS: RESP: ALBUTEROL 2.5 MG/IPRATROPIUM 0.5 MG NEB (SCH) NEB ×4 (03:29→20:31)
[2016-09-14] MEDS: PANTOPRAZOLE SODIUM 40 MG VIAL IV PUSH SCH ×2 (03:48→17:14)
[2016-09-14] MEDS: LEVOTHYROXINE SODIUM 50 MCG TAB PO SCH (03:48)
[2016-09-14] MEDS: hydrALAZINE HCL 50 MG TAB PO SCH ×4 (03:48→22:00)
[2016-09-14] MEDS: INSULIN NovoLIN REGULAR SUPPLEMENTAL SCALE SQ SCH ×4 (03:49→20:00)
[2016-09-14] MEDS: PROPOFOL 1000 MG/100 ML INJ 100 ML IV SCH ×4 (06:06→23:05)
[2016-09-14 06:47] LABS: AUTOMATED NEUTROPHIL # 8.6 TH/MM3 (1.8-7.7); BASOPHIL % 0.4 % (0.0-2.0); EOSINOPHIL % 0.5 % (0.0-4.0); HEMATOCRIT 28.6 % (39.0-51.0); LYMPH % 6.7 % (9.0-44.0); LYMPHOCYTE # 0.7 TH/MM3 (1.0-4.8); MEAN CELL VOLUME 84.5 FL (80.0-100.0); MEAN CORPUSCULAR HEMOGLOBIN 27.8 PG (27.0-34.0); MEAN CORPUSCULAR HGB CONC 32.9 % (32.0-36.0); MONO % 5.6 % (0.0-8.0); NEUT % 86.8 % (16.0-70.0); PLATELET COUNT 57 TH/MM3 (150-450); RED BLOOD COUNT 3.39 MIL/MM3 (4.50-5.90); RED CELL DISTRIBUTION WIDTH 16.3 % (11.6-17.2); WHITE BLOOD COUNT 9.8 TH/MM3 (4.0-11.0)
[2016-09-14 06:58] LABS: HEMO FLAGS AUTO DIFF
[2016-09-14 07:03] LABS: BICARBONATE 31.8 MEQ/L (21.0-32.0); POTASSIUM 5.1 MEQ/L (3.5-5.1)
[2016-09-14 07:51] LABS: PLATELET ESTIMATE SMEAR LOW (NORMAL); PLATELET MORPHOLOGY ENLARGED (NORMAL); SCAN/DIFF AUTO DIFF CONFIRMED
--- NOTE | 2016-09-14 07:53 | HHI.CCPN ---
Subjective Remarks/Hospital Course The patient is a 71-year-old male with past medical history significant for COPD, aortic stenosis, hypertension and diabetes who presented to the emergency department with progressive shortness of breath and nonproductive cough for last 5 days. He was diagnosed and admitted to service on with [id number] [place], COPD exacerbation and probable pneumonia. He had a previous heart catheterization in 2014, was told at that time he needed to have aortic valve replacement. He was started on IV antibiotics with Rocephin and azithromycin and also was placed on IV steroids and DuoNeb breathing treatment for probable COPD exacerbation. All the cultures so far negative, also negative for influenza A and B, negative for Streptococcus and Legionella antigen. Cardiology was consulted, and echo showed moderate to severe aortic stenosis. Cardiothoracic surgery was also consulted and is following, plan for cardiac catheterization this Tuesday. A Halicat was called today as the patient was increasingly lethargic with increased dyspnea and hypoxia. He desaturated to the 70% when RN attempted to move him. Chest x-ray showed bilateral pulmonary edema worsening compared to admission. He was moved to the ICU and critical care medicine was consulted. I evaluated the patient in ICU. He is tachypneic on 100% nonrebreather. Examination revealed bilateral crackles. 60 mg of IV Lasix stat given and patient was ordered to be placed on BiPAP at 06/16. BNP was 658 SUBJECT 09/05/16: Patient did not tolerate BiPAP overnight. Currently remains on partial nonrebreather. Urine output more than 6 L in 24 hours. He developed atrial flutter with RVR, was placed on esmolol which I have changed to Cardizem. Chest x-ray shows interval improvement in my review 09/06/16: Remains on pNRB. sputum cx with strep pneumo. Urine out put diminishing. 1L bolus given with adequate response. Bilateral lung infiltrate. Discussed with Dr. Dudley. Will hold off cath until Reps failure/ALI improves and renal failure improves 09.07 Patient is on BIPAP 06/16 with FIO2 65%. Afebrile. 09/08 Patient is off BIPAP on Bumex drip 2mg/hr with UO 7.6L in 24 hrs. Afebrile feeling better. Renal function improving with Cr 1.52 from 2.07. 09/09 Patient is on partial rebreather with good sats. Afebrile. Renal function improving with Cr: 1.09 from 1.52. Remains on Bumex drip down 0.5mg/hr. 09/10 Patient was placed on Amio drip yesterday . Afebrile. Off Bumex drip. 09/11 No acute events overnight. Remains on Amio drip. On partial rebreather. CT chest last night showed no PE. 09/12 No acute events overnight. Remains on partial rebreather, off Amio drip. Afebrile. 09/13 Patient was intubated yesterday for resp distress and hypoxemia. Sedated with Diprivan and Fentanyl. Afebrile. On PRVC/AC RR 18, TV 550, PEEP: 10, FIO2 60%. 09/14 Patient is sedated with Diprivan and Fentanyl. Off Bumex drip, afebrile. Cr 1.53 today from 1.41. Objective Vital Signs Date Time Temp Pulse Resp B/P Pulse Ox O2 Delivery O2 Flow Rate FiO2 09/14/16 06:00 74 09/14/16 04:23 94 70 09/14/16 04:00 99.2 16 111/56 09/14/16 04:00 Mechanical Ventilator 09/12/16 12:00 15.00 Intake and Output 09/13/16 09/13/16 09/14/16 08:00 16:00 00:00 Intake Total 470 ml 910 ml 1162 ml Output Total 450 ml 900 ml 750 ml Balance 20 ml 10 ml 412 ml Result Diagram: 09/14/16 0623 09/14/16 0623 Other Results Laboratory Tests Test 09/13/16 09/13/16 09/13/16 09/14/16 09:49 10:10 13:41 06:23 Blood Gas Puncture Site LT RADIAL Blood Gas Patient Temperature 98.6 Blood Gas HCO3 29 mmol/L Blood Gas Base Excess 4.1 mmol/L Blood Gas Oxygen Saturation 92 % Arterial Blood pH 7.35 Arterial Blood Partial 54 mmHg Pressure CO2 Arterial Blood Partial 78 mmHg Pressure O2 Arterial Blood Oxygen Content 12.8 Vol % Arterial Blood 2.4 % Carboxyhemoglobin Arterial Blood Methemoglobin 1.1 % Blood Gas Hemoglobin 9.9 G/DL Oxygen Delivery Device VENTILATOR Blood Gas Inspired Oxygen 70 % Potassium Level 4.7 MEQ/L 5.1 MEQ/L Prothrombin Time 12.5 SEC Prothromb Time International 1.1 RATIO Ratio Activated Partial 28.9 SEC Thromboplast Time Fibrinogen 509 mg/dL White Blood Count 9.8 TH/MM3 Red Blood Count 3.39 MIL/MM3 Hemoglobin 9.4 GM/DL Hematocrit 28.6 % Mean Corpuscular Volume 84.5 FL Mean Corpuscular Hemoglobin 27.8 PG Mean Corpuscular Hemoglobin 32.9 % Concent Red Cell Distribution Width 16.3 % Platelet Count 57 TH/MM3 Mean Platelet Volume 10.9 FL Neutrophils (%) (Auto) 86.8 % Lymphocytes (%) (Auto) 6.7 % Monocytes (%) (Auto) 5.6 % Eosinophils (%) (Auto) 0.5 % Basophils (%) (Auto) 0.4 % Neutrophils # (Auto) 8.6 TH/MM3 Lymphocytes # (Auto) 0.7 TH/MM3 Monocytes # (Auto) 0.5 TH/MM3 Eosinophils # (Auto) 0.0 TH/MM3 Basophils # (Auto) 0.0 TH/MM3 CBC Comment AUTO DIFF Sodium Level 133 MEQ/L Chloride Level 94 MEQ/L Carbon Dioxide Level 31.8 MEQ/L Anion Gap 7 MEQ/L Blood Urea Nitrogen 64 MG/DL Creatinine 1.53 MG/DL Estimat Glomerular Filtration 45 ML/MIN Rate Random Glucose 398 MG/DL Calcium Level 8.4 MG/DL Imaging Last Impressions Chest X-Ray 09/13/16 0000 Signed Impressions: Service Date/Time: Tuesday, September 13, 2016 07:57 - CONCLUSION: Diffuse bilateral airspace consolidation remains present but has improved since yesterday's examination. Frank Young MD Lower Extremity Ultrasound 09/11/16 0000 Signed Impressions: Service Date/Time: Sunday, September 11, 2016 12:30 - CONCLUSION: No DVT is identified within either lower extremity. Frank Young MD CT Angiography 09/10/16 0000 Signed Impressions: Service Date/Time: Sunday, September 11, 2016 01:05 - CONCLUSION: No evidence of pulmonary embolism. Frank Hardin MD Abdomen Ultrasound 09/07/16 0000 Signed Impressions: Service Date/Time: Wednesday, September 07, 2016 16:45 - CONCLUSION: Heterogeneous hepatic echotexture consistent with chronic liver disease. Splenomegaly Mild to moderate ascites Mildly thickened gallbladder wall without evidence of gallstones. No evidence of hydronephrosis. Isidro Oliver MD Upper Extremity Ultrasound 09/06/16 0000 Signed Impressions: Service Date/Time: Tuesday, September 06, 2016 20:43 - CONCLUSION: No evidence of DVT. Isidro Oliver MD Chest CT 09/05/16 0000 Signed Impressions: Service Date/Time: Monday, September 05, 2016 15:37 - CONCLUSION: 1. Cardiomegaly with diffuse ground glass densities and consolidation likely pulmonary edema and/or pneumonia. 2. Small bilateral pleural effusions. 3. Prominent lymphadenopathy in the mediastinum. Cameron Archer MD Objective Remarks Gen: 71-year-old male lying in bed intubated and sedated. Head: Normocephalic. Atraumatic. EENT: Pupils equal round and reactive to light. Cardiovascular: S1-S2 normal. Systolic murmur heard in the aortic area Respiratory: B/l equal air entry with few coarse BS. Abdomen: Soft, nontender, nondistended. No peritoneal signs. Musculoskeletal: No gross deformities. No edema. Skin: No obvious rashes or erythema. Neuro: Sedated A/P Assessment and Plan NEURO: -Monitor neuro status On Diprivan and Fentanyl infusion for sedation and vent synchrony. Daily sedation vacation. RESP: VDRF ARDS Pneumococcal pneumonia COPD exacerbation -On PRVC/AC RR 16, TV 550, PEEP:10, FIO2 70%., IT:0.9. Check CXR -Continue with vent support keep sat >92% -Bronchodilators. Decrease Solu-Medrol 40mg IV daily -3/3 CTA chest last night showed no PE CV: Severe aortic stenosis CHF NSTEMI -Monitor HR and BP keep MAP>65mmHg -Continue aspirin, Coreg 6.25mg BID, Hydralazine 50mg Q8, on pravastatin. -Echo showed EF 50-55%, mod-severe -Cardiothoracic surgery and cardiology Dr. Dudley is following -[facility] on hold fue to resp failure and worsening renal function- discussed with Dr. Dudley. GI: -Elevated LFT's..trending down -On Glucerna 1.5@45ml/hr. -Protonix for GI prophylaxis -Monitor LFT's ( trending down) US abdomen: Heterogeneous hepatic echotexture consistent with chronic liver disease. Splenomegaly Mild to moderate ascites Mildly thickened gallbladder wall without evidence of gallstones. No evidence of hydronephrosis. : Acute kidney injury. Hyponatremia. -Off Bumex drip. d/c IVF -Cr increased 1.53 from1.41 , UO: 2300ml in 24 hrs -Monitor renal function, I/O's, avoid nephrotoxins. -Renal- Dr. Roa. Renal US: No hydronephrosis ID: Sepsis Pneumococcal pneumonia -Continue abx per ID (Teflaro).Monitor for signs of infections ( Fever, WBC) -Sputum culture positive for strep pneumo. Influenza negative -Recheck sputum cx, UA HEME: -Monitor CBC, CMP, coags. Hep PLT ab positive, follow up on TIGIST -Heme is following ENDO: Type 2 diabetes Hypothyroidism - Increase SSI high scale for glycemic control. Increase Levemir 14u Q12, taper steroids -Continue Synthroid 50 mcg daily. TSH: 0.373 PROPH: -Bilateral lower extremity SCDs. Protonix for GI prophylaxis. Heparin SQ on hold for thrombocytopenia LINES: -Utilize peripheral IVs, CCT 30 mins Gerry Vivas MD Sep 14, 2016 07:53
[2016-09-14] MEDS ORDERED: GLUCAGON 1 MG/ML VIAL OTHER PRN (08:00)
[2016-09-14] MEDS ORDERED: DEXTROSE 50% IN WATER 50 ML VIAL(D50) IV PUSH PRN (08:00)
--- NOTE | 2016-09-14 08:34 | PD.CARD.PN ---
Subjective Subjective Remarks sedated, intubated and mechanically ventilated Objective Vital Signs / I&O Vital Signs Date Time Temp Pulse Resp B/P Pulse Ox O2 Delivery O2 Flow Rate FiO2 09/14/16 06:00 74 09/14/16 04:23 94 70 09/14/16 04:00 99.2 75 16 111/56 93 09/14/16 04:00 70 09/14/16 04:00 77 09/14/16 04:00 94 Mechanical Ventilator 70 09/14/16 02:00 78 09/14/16 01:32 93 70 09/14/16 00:00 70 09/14/16 00:00 93 Mechanical Ventilator 70 09/14/16 00:00 99.1 75 16 114/57 93 09/14/16 00:00 75 09/13/16 22:16 92 70 09/13/16 22:00 76 09/13/16 20:19 93 70 09/13/16 20:00 92 Mechanical Ventilator 70 09/13/16 20:00 70 09/13/16 20:00 99.2 80 16 118/58 92 09/13/16 20:00 80 09/13/16 18:12 80 09/13/16 16:58 92 70 09/13/16 16:34 98.4 82 23 120/60 93 09/13/16 16:33 70 09/13/16 16:32 93 Mechanical Ventilator 70 09/13/16 16:26 81 09/13/16 14:00 78 09/13/16 12:00 98.2 72 16 125/58 92 09/13/16 12:00 70 09/13/16 12:00 92 Mechanical Ventilator 70 09/13/16 12:00 72 09/13/16 11:34 93 70 09/13/16 10:20 97 70 09/13/16 10:00 76 09/13/16 08:29 95 70 I/O 09/13/16 09/13/16 09/13/16 09/14/16 09/14/16 09/14/16 07:00 15:00 23:00 07:00 15:00 23:00 Intake Total 470 ml 910 ml 1162 ml 1234 ml Output Total 450 ml 900 ml 750 ml 650 ml Balance 20 ml 10 ml 412 ml 584 ml IV Total 559 ml 603 ml 701 ml Tube Feeding 270 ml 351 ml 309 ml 333 ml Other 200 ml 250 ml 200 ml Output Urine Total 450 ml 900 ml 750 ml 650 ml # Bowel Movements 0 0 0 0 Physical Exam GENERAL: Well-nourished, well-developed patient in no apparent distress. NECK: No JVD. No carotid bruit. CARDIOVASCULAR: Regular rate and rhythm. S1/S2 no rub or gallop. II/ STEVE LSB RESPIRATORY: No accessory muscle use. mild rhonchi to auscultation. Breath sounds equal bilaterally. GASTROINTESTINAL: Abdomen soft, non-tender, nondistended. MUSCULOSKELETAL: Extremities without clubbing, cyanosis, or edema. Laboratory Laboratory Tests Test 09/13/16 09/13/16 09/13/16 09/14/16 09:49 10:10 13:41 06:23 Blood Gas Puncture Site LT RADIAL Blood Gas Patient Temperature 98.6 Blood Gas HCO3 29 mmol/L Blood Gas Base Excess 4.1 mmol/L Blood Gas Oxygen Saturation 92 % Arterial Blood pH 7.35 Arterial Blood Partial 54 mmHg Pressure CO2 Arterial Blood Partial 78 mmHg Pressure O2 Arterial Blood Oxygen Content 12.8 Vol % Arterial Blood 2.4 % Carboxyhemoglobin Arterial Blood Methemoglobin 1.1 % Blood Gas Hemoglobin 9.9 G/DL Oxygen Delivery Device VENTILATOR Blood Gas Inspired Oxygen 70 % Potassium Level 4.7 MEQ/L 5.1 MEQ/L Prothrombin Time 12.5 SEC Prothromb Time International 1.1 RATIO Ratio Activated Partial 28.9 SEC Thromboplast Time Fibrinogen 509 mg/dL White Blood Count 9.8 TH/MM3 Red Blood Count 3.39 MIL/MM3 Hemoglobin 9.4 GM/DL Hematocrit 28.6 % Mean Corpuscular Volume 84.5 FL Mean Corpuscular Hemoglobin 27.8 PG Mean Corpuscular Hemoglobin 32.9 % Concent Red Cell Distribution Width 16.3 % Platelet Count 57 TH/MM3 Mean Platelet Volume 10.9 FL Neutrophils (%) (Auto) 86.8 % Lymphocytes (%) (Auto) 6.7 % Monocytes (%) (Auto) 5.6 % Eosinophils (%) (Auto) 0.5 % Basophils (%) (Auto) 0.4 % Neutrophils # (Auto) 8.6 TH/MM3 Lymphocytes # (Auto) 0.7 TH/MM3 Monocytes # (Auto) 0.5 TH/MM3 Eosinophils # (Auto) 0.0 TH/MM3 Basophils # (Auto) 0.0 TH/MM3 CBC Comment AUTO DIFF Differential Comment AUTO DIFF CONFIRMED Platelet Estimate LOW Platelet Morphology Comment ENLARGED Sodium Level 133 MEQ/L Chloride Level 94 MEQ/L Carbon Dioxide Level 31.8 MEQ/L Anion Gap 7 MEQ/L Blood Urea Nitrogen 64 MG/DL Creatinine 1.53 MG/DL Estimat Glomerular Filtration 45 ML/MIN Rate Random Glucose 398 MG/DL Calcium Level 8.4 MG/DL Assessment and Plan Problem List: (1) NSTEMI (non-ST elevated myocardial infarction) (2) Aortic stenosis (3) Congestive heart failure (CHF) (4) Hypertension Assessment and Plan NSTEMI - contiue medical management - moderate to severe mean gradient 20 mmHg and valve area 0.88 cm2 ARF - creatinine increased HTN - blood pressure well controlled PNA - conitnue ABX Hyponatremia -worsening fluid overload, will defer management of fluid status to nephrology. recommend keeping euvolemic Problem Qualifiers (1) Aortic stenosis: Qualified Code: I35.0 - Aortic valve stenosis, unspecified etiology (2) Congestive heart failure (CHF): (3) Hypertension: Qualified Code: I10 - Essential hypertension Bandar Yu Sep 14, 2016 08:34
[2016-09-14] MEDS: PRIMIDONE 50 MG TAB PO SCH ×3 (08:49→17:12)
[2016-09-14] MEDS: DOCUSATE SODIUM 50 MG/SENNA 8.6 MG TAB PO SCH (08:50)
[2016-09-14] MEDS: PRAVASTATIN SOD 40 MG TAB PO SCH (08:50)
[2016-09-14] MEDS: CARVEDILOL 6.25 MG TAB PO SCH ×2 (08:50→20:37)
[2016-09-14] MEDS: FERROUS SULFATE 300 MG /5ML UDC PO SCH ×2 (08:50→20:37)
[2016-09-14] MEDS: SERTRALINE HCL 50 MG TAB PO SCH (08:50)
[2016-09-14] MEDS: methylPREDNISolone SOD SUCC 40 MG/1 ML VIAL IV SCH (08:51)
[2016-09-14] MEDS: INSULIN DETEMIR 100 UNITS/ML VIAL SQ SCH ×2 (08:51→20:35)
[2016-09-14] MEDS: CHLORHEXIDINE 0.12% (ORAL KIT) 15 ML CUP MT SCH ×2 (08:52→20:35)
--- NOTE | 2016-09-14 09:28 | RADRPT ---
EXAM DATE/TIME: 09/14/2016 07:59 [facility] COMPARISON: CHEST SINGLE AP, September 13, 2016, 7:57. INDICATIONS : Respiratory distress MEDICAL HISTORY : Hypertension. Chronic obstructive pulmonary disease. Hypertension. cardiovascular disease SURGICAL HISTORY : None. ENCOUNTER: Subsequent ACUITY: 2 weeks PAIN SCORE: Non-responsive. LOCATION: Bilateral chest FINDINGS: Endotracheal tube has migrated into the origin of the right mainstem bronchus. Nasogastric tube remains in position. Significant airspace disease remains evident throughout both lungs without significant clearing. CONCLUSION: No change in pulmonary status with scattered airspace disease. Tip of endotracheal tube is now in the right mainstem bronchus. Patient's nurse notified. Isidro Oliver MD on September 14, 2016 at 9:23 Board Certified Radiologist. This report was verified electronically.
--- NOTE | 2016-09-14 11:26 | HHI.NPPN ---
Subjective Complaints: Confused, Shortness of Breath General Problems: Edema Renal Failure: Chronic, Acute Interval History Remains intubated, sedated. Bumex gtt was stopped last evening. Good urine output. Creatinine is worse today. Low grade fevers present. (Prachi Palencia) Review of Systems General General Remarks unable to evaluate (Prachi Palencia) Objective Data Data 09/13/16 09/14/16 18:59 06:59 Intake Total 910 ml 2396 ml Output Total 900 ml 1400 ml Balance 10 ml 996 ml IV Total 559 ml 1304 ml Tube Feeding 351 ml 642 ml Other 450 ml Output Urine Total 900 ml 1400 ml # Bowel Movements 0 0 Vital Signs Date Time Temp Pulse Resp B/P Pulse Ox O2 Delivery O2 Flow Rate FiO2 09/14/16 08:56 93 70 09/14/16 06:00 74 09/14/16 04:23 94 70 09/14/16 04:00 99.2 75 16 111/56 93 09/14/16 04:00 70 09/14/16 04:00 77 09/14/16 04:00 94 Mechanical Ventilator 70 09/14/16 02:00 78 09/14/16 01:32 93 70 09/14/16 00:00 70 09/14/16 00:00 93 Mechanical Ventilator 70 09/14/16 00:00 99.1 75 16 114/57 93 09/14/16 00:00 75 09/13/16 22:16 92 70 09/13/16 22:00 76 09/13/16 20:19 93 70 09/13/16 20:00 92 Mechanical Ventilator 70 09/13/16 20:00 70 09/13/16 20:00 99.2 80 16 118/58 92 09/13/16 20:00 80 09/13/16 18:12 80 09/13/16 16:58 92 70 09/13/16 16:34 98.4 82 23 120/60 93 09/13/16 16:33 70 09/13/16 16:32 93 Mechanical Ventilator 70 09/13/16 16:26 81 09/13/16 14:00 78 09/13/16 12:00 98.2 72 16 125/58 92 09/13/16 12:00 70 09/13/16 12:00 92 Mechanical Ventilator 70 09/13/16 12:00 72 09/13/16 11:34 93 70 (Prachi Palencia) -: 09/14/16 0623 09/14/16 0623 Microbiology 09/14/16 Gram Stain, Received Pending 09/14/16 Sputum Culture, Received Pending Tubes & Lines: Ortega Drip Comment fentanyl, versed (Prachi Palencia) Physical Exam General Appearance: Well Developed, Well Nourished, No Acute Distress Appearance Remarks intubated/sedated/unresponsive (Prachi Palencia) Throat Throat Exam: Oral Mucosa Grubbs & Moist (Prachi Palencia) Pulmonary Resp Exam: Breath Sounds Equal, Crackles, Decreased Bases (Prachi Palencia) Cardiology CV Exam: Regular, Good Perfusion (Prachi Palencia) Gastrointestinal/Abdomen GI Exam: Soft, Non-Tender, Bowel Sounds Present (Prachi Palencia) Genitourinary Exam: Clear Urine (Prachi Palencia) Musculoskeletal MS Exam: Joints Intact, Normal Gait, Normal Tone (Prachi Palencia) Integumentary Skin Exam: Clear, Warm, Dry, Intact, Tenting (Prachi Palencia) Extremeties Extremities Exam: Pedal Pulses Palpable, Moderate Edema (Prachi Palencia) Neurologic Neuro Exam: Alert, Awake, Speech Clear, Moving All Extremities (Prachi Palencia) Psychiatric Psych Exam: Appropriate Responses (Prachi Palencia) Assessment/Plan Discussed Condition With: Patient, Relative Assessment Summary: PHILIPPE/Acute Renal Failure Problem List: (1) PHILIPPE (acute kidney injury) Plan: initial ARF due to ATN, secondary to renal hypoperfusion injury (sepsis , hypotension, A fib RVR); that had resolved renal function has worsened over past two days; Bumex gtt stopped, now on intermittent dosage, 2 mg IV BID monitor fluid volume status monitor electrolytes BUN high, may be due to steroids avoid nephrotoxins, heart cath on hold ortega in place for I/O measurement daily renal panel (2) Congestive heart failure (CHF) Plan: monitor fluid volume status (3) Diabetes Plan: continue insulin therapy monitor glucose, goal 140-180 mg/dL (4) Hypertension Plan: not on pressors monitor BP, medicate per admitting team (5) Severe sepsis Plan: previously being treated for strep pneumonia now with ARDS type presentation and high 02 requirement vent settings: A/C 20/550/70/10 ID following, on Teflaro WBC normalized (6) Aortic stenosis Plan: CT following plan for heart cath when clinically improved (7) A-fib Plan: off Amiodarone gtt (Prachi Palencia) Plan patient was seen and examined. Agree with above assessment and plan. Discussed with family. ARDS. Prognosis is guarded. Continue diuresis. (Gentry Roa MD ) Problem Qualifiers (1) Congestive heart failure (CHF): (2) Diabetes: (3) Hypertension: Qualified Code: I10 - Essential hypertension (4) Aortic stenosis: Qualified Code: I35.0 - Aortic valve stenosis, unspecified etiology Prachi Palencia Sep 14, 2016 11:25 Gentry Roa MD Sep 14, 2016 16:28
--- NOTE | 2016-09-14 11:58 | HHI.FPPN ---
Subjective Remarks Currently intubated and sedated. (Sae Perry MD R2) Objective Vitals Vital Signs Date Time Temp Pulse Resp B/P Pulse Ox O2 Delivery O2 Flow Rate FiO2 09/14/16 08:56 93 70 09/14/16 06:00 74 09/14/16 04:23 94 70 09/14/16 04:00 99.2 75 16 111/56 93 09/14/16 04:00 70 09/14/16 04:00 77 09/14/16 04:00 94 Mechanical Ventilator 70 09/14/16 02:00 78 09/14/16 01:32 93 70 09/14/16 00:00 70 09/14/16 00:00 93 Mechanical Ventilator 70 09/14/16 00:00 99.1 75 16 114/57 93 09/14/16 00:00 75 09/13/16 22:16 92 70 09/13/16 22:00 76 09/13/16 20:19 93 70 09/13/16 20:00 92 Mechanical Ventilator 70 09/13/16 20:00 70 09/13/16 20:00 99.2 80 16 118/58 92 09/13/16 20:00 80 09/13/16 18:12 80 09/13/16 16:58 92 70 09/13/16 16:34 98.4 82 23 120/60 93 09/13/16 16:33 70 09/13/16 16:32 93 Mechanical Ventilator 70 09/13/16 16:26 81 09/13/16 14:00 78 09/13/16 12:00 98.2 72 16 125/58 92 09/13/16 12:00 70 09/13/16 12:00 92 Mechanical Ventilator 09/13/16 12:00 72 I/O 09/13/16 09/13/16 09/13/16 09/14/16 09/14/16 09/14/16 07:00 15:00 23:00 07:00 15:00 23:00 Intake Total 470 ml 910 ml 1162 ml 1234 ml Output Total 450 ml 900 ml 750 ml 650 ml Balance 20 ml 10 ml 412 ml 584 ml IV Total 559 ml 603 ml 701 ml Tube Feeding 270 ml 351 ml 309 ml 333 ml Other 200 ml 250 ml 200 ml Output Urine Total 450 ml 900 ml 750 ml 650 ml # Bowel Movements 0 0 0 0 (Sae Perry MD R2) Result Diagram: 09/14/16 0609/14/16622 Imaging Last Impressions Chest X-Ray 09/14/16 Signed Impressions: Service Date/Time: Wednesday, September 14, 2016 07:59 - CONCLUSION: No change in pulmonary status with scattered airspace disease. Tip of endotracheal tube is now in the right mainstem bronchus. Patient's nurse notified. Isidro Oliver MD Lower Extremity Ultrasound 09/11/16 0000 Signed Impressions: Service Date/Time: Sunday, September 11, 2016 12:30 - CONCLUSION: No DVT is identified within either lower extremity. Frank Young MD CT Angiography 09/10/16 0000 Signed Impressions: Service Date/Time: Sunday, September 11, 2016 01:05 - CONCLUSION: No evidence of pulmonary embolism. Frank Hardin MD Abdomen Ultrasound 09/07/16 0000 Signed Impressions: Service Date/Time: Wednesday, September 07, 2016 16:45 - CONCLUSION: Heterogeneous hepatic echotexture consistent with chronic liver disease. Splenomegaly Mild to moderate ascites Mildly thickened gallbladder wall without evidence of gallstones. No evidence of hydronephrosis. Isidro Oliver MD Upper Extremity Ultrasound 09/06/16 0000 Signed Impressions: Service Date/Time: Tuesday, September 06, 2016 20:43 - CONCLUSION: No evidence of DVT. Isidro Oliver MD Chest CT 09/05/16 0000 Signed Impressions: Service Date/Time: Monday, September 05, 2016 15:37 - CONCLUSION: 1. Cardiomegaly with diffuse ground glass densities and consolidation likely pulmonary edema and/or pneumonia. 2. Small bilateral pleural effusions. 3. Prominent lymphadenopathy in the mediastinum. Cameron Archer MD Objective Remarks Gen.: Lying in bed, intubated, sedated Head: Normocephalic. Atraumatic. EENT: Pupils equal round and reactive to light. Nose without drainage. Airway intact. Cardiovascular: Regular rate and rhythm. 2/6 systolic ejection murmur along left sternal border. Respiratory: CTAB bilaterally Abdomen: Soft, nontender, nondistended. No peritoneal signs. Musculoskeletal: No gross deformities. No edema. Skin: No obvious rashes or erythema. Neuro: Intubated, sedated (Sae Perry MD R2) A/P Assessment and Plan 71-year-old male who presented with a 5-day history of shortness of breath and nonproductive cough. ACS rule out positive for NSTEMI. Patient has a history of COPD and was admitted with sepsis with cardiology consultation for NSTEMI. Developed respiratory distress on 09/04 and was transferred to the ICU with critical care consult. Tolerated BiPAP vs nonrebreather vs nasal cannula for several days, but due to worsening respiratory distress, he was intubated on 09/12. Cardiology to perform left heart catheterization when clinically better. Pulmonology on board. Nephrology consulted for PHILIPPE. Hematology consulted due to thrombocytopenia. Discharge Planning Pending clinical improvement (Sae Perry MD R2) Attending Attestation Patient seen and examined. Case reviewed and discussed Agree with plan of care as discussed with me and documented in the resident note. (She Harris MD) Problem List: (1) Respiratory distress Status: Acute Plan: Intubated and sedated in the ICU -Critical care managing - will follow recs -Decrease FiO2 as tolerated -Steroids per critical care -DuoNebs every 6 hours -I's and O's -Daily weights (2) NSTEMI (non-ST elevated myocardial infarction) Status: Acute Plan: -Patient with elevated troponins to 1.[address] elevations in V1 V3 on admission -Cardiology following -Left heart catheter when clinically able to tolerate procedure -Continue medical management (3) Aortic stenosis Status: Acute Plan: -Cardiothoracic surgery consulted -Cardiology and cardiothoracic surgery to discuss plans going forward -Will need to optimize medical management prior to performing any procedures -Pulmonology consulted given high surgical risk- appreciate recommendations (4) Pneumonia Status: Acute Plan: -Strep pneumoniae in sputum culture Infectious disease consult - Ceftarolin 300 mg IV every 12 hours (started on 09/07-) (5) CHF due to valvular disease Status: Acute Plan: Echo performed on 09/02 showed EF of 5055 percent. -Aortic valve with moderate to severe stenosis -Coreg 3.125 mg by mouth every 12 hours (6) PHILIPPE (acute kidney injury) Status: Acute Plan: Creatinine 1.53 -Nephrology on board -Monitor I's and O's -Avoid nephrotoxins (7) Thrombocytopenia Status: Acute Plan: Currently stable -Decreased aspirin to 81mg daily -Hematology consulted -Suspect ITP versus DIC -Heparin subcutaneous discontinued -HIT positive, but likely false positive, TIGIST pending -Hepatitis panel negative -Abdominal ultrasound on 09/07 shows heterogeneous hepatic echo texture consistent with chronic liver disease, splenomegaly, mild to moderate ascites -Continue to monitor, await TIGIST (8) Diabetes Status: Chronic Plan: Patient's home regimen is NPH 25 units every morning and 50 units daily at bedtime -Intubated, on tube feeds -Currently on Levemir 14 units twice a day per critical care -Continue Medium SSI -Adjust insulin regimen as needed (9) COPD exacerbation Status: Acute Plan: Patient with known COPD and [id number] history of smoking Albuterol every 2 hours when necessary DuoNeb nebs every 4 hours scheduled Solu-Medrol 40 mg every 12 hours (10) Hyponatremia Status: Acute Plan: -Pseudohyponatremia vs SIADH vs some element of both -Serum osmolality elevated at 304 -Uric acid within normal limits -Will follow with daily BMPs -Strict I's and O's (11) Hypertension Status: Chronic Plan: Continue Coreg. Hydralazine when necessary. Continue losartan (12) Anxiety and depression Status: Chronic Plan: -Continue home meds on adjusted regimen -Trazodone 100 mg by mouth daily - -Sertraline 100 mg by mouth daily - taper to 50mg -Buspirone 10mg BID - hold -Primidone 100mg PO BID - continue (13) BPH (benign prostatic hyperplasia) Status: Chronic Plan: -History of BPH -Patient states history of using Flomax but not on current list of medications -Will consider starting Flomax if patient has symptoms (14) Severe sepsis Status: Resolved Plan: Septic on admission On Ceftarolin IV as above Repeat blood cultures negative to date Abx History: -Vancomycin 1250mg IV Q12h with pharmacy consult and Zosyn 3.375mg IV Q6h (dc ) -Azithromycin 500 mg by mouth every 24 hours started on 09/01. Dc'd on 09/07 (15) FEN/DVT PPX/GI PPX Status: Acute Plan: Fluids: per CC Electrolytes: Will monitor and replace as needed Nutrition: Tube feeds DVT Prophylaxis: Bilateral SCDs, heparin discontinued due to thrombocytopenia GI Prophylaxis: None currently (Sae Perry MD R2) Problem Qualifiers (1) Aortic stenosis: Qualified Code: I35.0 - Aortic valve stenosis, unspecified etiology (2) Pneumonia: Qualified Code: J18.9 - Pneumonia of both lungs due to infectious organism, unspecified part of lung (3) Diabetes: (4) Hypertension: Qualified Code: I10 - Essential hypertension Sae Perry MD R2 Sep 14, 2016 11:58 She Harris MD Sep 15, 2016 16:29
[2016-09-14 12:32] LABS: BLOOD GAS BASE EXCESS 3.6 mmol/L (-2-2); BLOOD GAS CARBOXYHEMOGLOBIN 2.2 % (0-4); BLOOD GAS HCO3 29 mmol/L (22-26); BLOOD GAS METHEMOGLOBIN 0.9 % (0-2); BLOOD GAS O2 HGB SATURATION 94 % (90-100); BLOOD GAS OXYGEN CONTENT 12.8 Vol % (12.0-20.0); BLOOD GAS PCO2 56 mmHg (38-42); BLOOD GAS PO2 92 mmHg (61-120); BLOOD GAS TOTAL HGB 9.6 G/DL (12.0-16.0); TEMP CORR TO 98.6
[2016-09-14 12:33] LABS: CRITICAL VALUE YES; OXYGEN DEVICE VENTILATOR
[2016-09-14 12:34] LABS: DRAW SITE LT RADIAL; FIO2 70 %; NUMBER OF ARTERIAL PUNCTURES 1; STAT NO; ULNAR PULSE PRESENT
[2016-09-14] MEDS: CEFTAROLINE INJ 600 MG in SODIUM CHLORIDE 0.9% INJ 100 ML IV SCH (13:18)
--- NOTE | 2016-09-14 14:35 | HHI.IDPN ---
Subjective Subjective Remarks ID Coverage for Dr Henderson Mr. Gudino is a 71-year-old male with PMHx significant for COPD, aortic stenosis, hypertension and diabetes who presented to the emergency department with progressive shortness of breath and nonproductive cough for last 5 days. Notes reviewed. Delayed entry patient seen at ~ 9 am Diagnosed with resistant Strep pneumo pneumonia. Also pulm edema from severe aortic stenosis. Required re-intubation and felt pulmonary edema as culprit for respiratory deterioration Temps ok BP ok WBC normal No rash Not a lot of secretions in ET Was on Bumex drip that was stopped Creatinine up to 1.4 Antibiotics Teflaro IV Lines Line sites with no e/o infection Past Medical History reviewed Allergies: Coded Allergies: Niacin (Unverified Allergy, Severe, GENERALIZED BURNING AND ITCHING, ) Objective . Vital Signs Date Time Temp Pulse Resp B/P Pulse Ox O2 Delivery O2 Flow Rate FiO2 09/14/16 12:15 94 70 09/14/16 12:00 71 09/14/16 10:00 73 09/14/16 08:56 93 70 09/14/16 08:00 75 09/14/16 06:00 74 09/14/16 04:23 94 70 09/14/16 04:00 99.2 75 16 111/56 93 09/14/16 04:00 70 09/14/16 04:00 77 09/14/16 04:00 94 Mechanical Ventilator 70 09/14/16 02:00 78 09/14/16 01:32 93 70 09/14/16 00:00 70 09/14/16 00:00 93 Mechanical Ventilator 70 09/14/16 00:00 99.1 75 16 114/57 93 09/14/16 00:00 75 09/13/16 22:16 92 70 09/13/16 22:00 76 09/13/16 20:19 93 70 09/13/16 20:00 92 Mechanical Ventilator 70 09/13/16 20:00 70 09/13/16 20:00 99.2 80 16 118/58 92 09/13/16 20:00 80 09/13/16 18:12 80 09/13/16 16:58 92 70 09/13/16 16:34 98.4 82 23 120/60 93 09/13/16 16:33 70 09/13/16 16:32 93 Mechanical Ventilator 70 09/13/16 16:26 81 09/13/16 09/13/16 09/14/16 15:00 23:00 07:00 Intake Total 910 ml 1162 ml 1234 ml Output Total 900 ml 750 ml 650 ml Balance 10 ml 412 ml 584 ml IV Total 559 ml 603 ml 701 ml Tube Feeding 351 ml 309 ml 333 ml Other 250 ml 200 ml Output Urine Total 900 ml 750 ml 650 ml # Bowel Movements 0 0 0 . Laboratory Tests Test 09/13/16 09/14/16 05:40 06:23 White Blood Count 7.8 TH/MM3 9.8 TH/MM3 Red Blood Count 3.59 MIL/MM3 3.39 MIL/MM3 Hemoglobin 9.8 GM/DL 9.4 GM/DL Hematocrit 29.9 % 28.6 % Mean Corpuscular Volume 83.2 FL 84.5 FL Mean Corpuscular Hemoglobin 27.3 PG 27.8 PG Mean Corpuscular Hemoglobin 32.8 % 32.9 % Concent Red Cell Distribution Width 16.0 % 16.3 % Platelet Count 50 TH/MM3 57 TH/MM3 Mean Platelet Volume 11.0 FL 10.9 FL Neutrophils (%) (Auto) 84.0 % 86.8 % Lymphocytes (%) (Auto) 8.4 % 6.7 % Monocytes (%) (Auto) 6.7 % 5.6 % Eosinophils (%) (Auto) 0.6 % 0.5 % Basophils (%) (Auto) 0.3 % 0.4 % Neutrophils # (Auto) 6.6 TH/MM3 8.6 TH/MM3 Lymphocytes # (Auto) 0.7 TH/MM3 0.7 TH/MM3 Monocytes # (Auto) 0.5 TH/MM3 0.5 TH/MM3 Eosinophils # (Auto) 0.0 TH/MM3 0.0 TH/MM3 Basophils # (Auto) 0.0 TH/MM3 0.0 TH/MM3 CBC Comment AUTO DIFF AUTO DIFF Differential Comment AUTO DIFF AUTO DIFF CONFIRMED CONFIRMED Platelet Estimate LOW LOW Platelet Morphology Comment NORMAL ENLARGED Laboratory Tests Test 09/12/16 09/13/16 09/13/16 09/14/16 15:01 05:40 10:10 06:23 B-Type Natriuretic Peptide 840 PG/ML 419 PG/ML Sodium Level 134 MEQ/L 133 MEQ/L Potassium Level 5.1 MEQ/L 4.7 MEQ/L 5.1 MEQ/L Chloride Level 95 MEQ/L 94 MEQ/L Carbon Dioxide Level 30.2 MEQ/L 31.8 MEQ/L Anion Gap 9 MEQ/L 7 MEQ/L Blood Urea Nitrogen 46 MG/DL 64 MG/DL Creatinine 1.41 MG/DL 1.53 MG/DL Estimat Glomerular Filtration 50 ML/MIN 45 ML/MIN Rate Random Glucose 357 MG/DL 398 MG/DL Calcium Level 8.5 MG/DL 8.4 MG/DL Phosphorus Level 3.5 MG/DL Magnesium Level 2.2 MG/DL Microbiology Date/Time Procedure Status Source Growth 09/14/16 04:30 Gram Stain Received Sputum Endotracheal Pending 09/14/16 04:30 Sputum Culture Received Sputum Endotracheal Pending Imaging Last Impressions Chest X-Ray 09/12/16 0000 Signed Impressions: Service Date/Time: Monday, September 12, 2016 13:02 - CONCLUSION: 1. Endotracheal tube is now present. The brynn is not well-visualized but tube tip is estimated to be approximately 2 cm from the brynn. 2. Severe bilateral air space consolidation increased from the earlier exam. Farnk Young MD Lower Extremity Ultrasound 09/11/16 0000 Signed Impressions: Service Date/Time: Sunday, September 11, 2016 12:30 - CONCLUSION: No DVT is identified within either lower extremity. Frank Young MD CT Angiography 09/10/16 0000 Signed Impressions: Service Date/Time: Sunday, September 11, 2016 01:05 - CONCLUSION: No evidence of pulmonary embolism. Frank Hardin MD Abdomen Ultrasound 09/07/16 0000 Signed Impressions: Service Date/Time: Wednesday, September 07, 2016 16:45 - CONCLUSION: Heterogeneous hepatic echotexture consistent with chronic liver disease. Splenomegaly Mild to moderate ascites Mildly thickened gallbladder wall without evidence of gallstones. No evidence of hydronephrosis. Isidro Oliver MD Upper Extremity Ultrasound 09/06/16 0000 Signed Impressions: Service Date/Time: Tuesday, September 06, 2016 20:43 - CONCLUSION: No evidence of DVT. Isidro Oliver MD Chest CT 09/05/16 0000 Signed Impressions: Service Date/Time: Monday, September 05, 2016 15:37 - CONCLUSION: 1. Cardiomegaly with diffuse ground glass densities and consolidation likely pulmonary edema and/or pneumonia. 2. Small bilateral pleural effusions. 3. Prominent lymphadenopathy in the mediastinum. Cameron Archer MD Physical Exam GENERAL: Sedated on the vent, looks comfortable. SKIN: Cool and dry. NO rash HEAD: Atraumatic. Normocephalic. No temporal or scalp tenderness. EYES: Pupils equal round and reactive. No scleral icterus. No injection or drainage. ENT: Nose without bleeding, or purulent drainage. He is orally intubated NECK: Trachea midline. Supple, nontender, no meningeal signs. CARDIOVASCULAR: Has systolic murmur at base of heart, heard also L precordium , lateral L chest. NO rub RESPIRATORY: Coarse bilateral breath sounds. Decreased air entry bilaterally. GASTROINTESTINAL: Abdomen soft, not distended, no reaction to deep palpation. Bowel sounds (+) MUSCULOSKELETAL: Extremities without clubbing, cyanosis,Has mild edema. Feet warm and well perfused NEURO: Sedated PSYCH: Unable to assess LINE: NO evidence of infection : [place] in place, urine looks clear Assessment & Plan Remarks IMPRESSION Sepsis Pneumococcal PNA, resistant strain - S to teflaro Acute resp failure on vent - possibly due to pulmonary edema, has known severe , BNP elevated - concern for new PNA< but he has no fever. 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 Observe off antibiotics. Clinically more pulm edema. Monitor progress Spoke with family, . Saba Henderson MD Sep 14, 2016 14:35
[2016-09-14] MEDS: ASPIRIN 81 MG CHEW TAB PO SCH (15:40)
[2016-09-14] MEDS: BUMETANIDE INJ 1 MG/4 ML VIAL IV PUSH SCH (17:13)
--- NOTE | 2016-09-14 18:21 | HHI.PR ---
Subjective Remarks 71 YOWM with Resp insuf, COPD,Lung infilt On 6 LNC No fever at BS Pt intubated On AC 16,Fi02 70% Sedated gets agitated on weaning sedation Objective Vital Signs Vital Signs Date Time Temp Pulse Resp B/P Pulse Ox O2 Delivery O2 Flow Rate FiO2 09/14/16 18:03 73 09/14/16 16:29 93 70 09/14/16 16:27 91 Mechanical Ventilator 70 09/14/16 16:27 98.0 72 21 122/58 91 09/14/16 16:27 70 09/14/16 16:25 72 09/14/16 14:00 72 09/14/16 12:15 94 70 09/14/16 12:00 93 Mechanical Ventilator 70 09/14/16 12:00 70 09/14/16 12:00 71 09/14/16 12:00 98.1 71 20 112/64 93 09/14/16 10:00 73 09/14/16 08:56 93 70 09/14/16 08:00 70 09/14/16 08:00 92 Mechanical Ventilator 70 09/14/16 08:00 75 09/14/16 08:00 98.6 75 10 110/56 92 09/14/16 06:00 74 09/14/16 04:23 94 70 09/14/16 04:00 99.2 75 16 111/56 93 09/14/16 04:00 70 09/14/16 04:00 77 09/14/16 04:00 94 Mechanical Ventilator 70 09/14/16 02:00 78 09/14/16 01:32 93 70 09/14/16 00:00 70 09/14/16 00:00 93 Mechanical Ventilator 70 09/14/16 00:00 99.1 75 16 114/57 93 09/14/16 00:00 75 09/13/16 22:16 92 70 09/13/16 22:00 76 09/13/16 20:19 93 70 09/13/16 20:00 92 Mechanical Ventilator 70 09/13/16 20:00 70 09/13/16 20:00 99.2 80 16 118/58 92 09/13/16 20:00 80 I/O 09/13/16 09/13/16 09/13/16 09/14/16 09/14/16 09/14/16 07:00 15:00 23:00 07:00 15:00 23:00 Intake Total 470 ml 910 ml 1162 ml 1234 ml 675 ml Output Total 450 ml 900 ml 750 ml 650 ml 400 ml Balance 20 ml 10 ml 412 ml 584 ml 275 ml IV Total 559 ml 603 ml 701 ml 390 ml Tube Feeding 270 ml 351 ml 309 ml 333 ml 285 ml Other 200 ml 250 ml 200 ml Output Urine Total 450 ml 900 ml 750 ml 650 ml 400 ml # Bowel Movements 0 0 0 0 0 Result Diagram: 09/14/1662209/14/16622 Objective Remarks GENERAL: Obese WM, mild sob SKIN: Warm and dry. HEAD: Normocephalic. EYES: No scleral icterus. No injection or drainage. NECK: Supple, trachea midline. No JVD or lymphadenopathy. CARDIOVASCULAR: Regular rate and rhythm without murmurs, gallops, or rubs. RESPIRATORY: Breath sounds equal bilaterally. No accessory muscle use. GASTROINTESTINAL: Abdomen soft, non-tender, nondistended. MUSCULOSKELETAL: No cyanosis, or edema. BACK: Nontender without obvious deformity. No CVA tenderness. A/P Assessment and Plan Resp Failure, on Vent COPD Lung infilt DM Ch. Pain PLAN: Cont Abx IV Solumedrol Vent Support, AC16, Fi02 70% Aerosol nebs Monitor BS Amiodarone Kai Goodwin MD Sep 14, 2016 18:21
[2016-09-14 19:18] LABS: BLOOD GAS BASE EXCESS 3.8 mmol/L (-2-2); BLOOD GAS CARBOXYHEMOGLOBIN 2.2 % (0-4); BLOOD GAS HCO3 30 mmol/L (22-26); BLOOD GAS O2 HGB SATURATION 92 % (90-100); BLOOD GAS OXYGEN CONTENT 12.2 Vol % (12.0-20.0); BLOOD GAS PCO2 61 mmHg (38-42); BLOOD GAS PO2 79 mmHg (61-120); BLOOD GAS TOTAL HGB 9.3 G/DL (12.0-16.0); TEMP CORR TO 98.6
[2016-09-14 19:19] LABS: CRITICAL VALUE YES; DRAW SITE LT RADIAL; FIO2 70 %; NUMBER OF ARTERIAL PUNCTURES 1; OXYGEN DEVICE VENTILATOR; STAT NO; ULNAR PULSE PRESENT; VENT SETTINGS 20/550/PEEP10
[2016-09-14 19:54] LABS: UFH SEROTONIN RELEASE RESULT NEGATIVE (NEGATIVE)
--- NOTE | 2016-09-14 19:57 | PD.ONC.PN ---
Subjective Subjective Remarks intubated, remains critically ill no bleeding f/u for thrombocytopenia Objective Data Date Time Temp Pulse Resp B/P Pulse Ox O2 Delivery O2 Flow Rate FiO2 09/14/16 18:03 73 09/14/16 16:29 93 70 09/14/16 16:27 91 Mechanical Ventilator 70 09/14/16 16:27 98.0 72 21 122/58 91 09/14/16 16:27 70 09/14/16 16:25 72 09/14/16 14:00 72 09/14/16 12:15 94 70 09/14/16 12:00 93 Mechanical Ventilator 70 09/14/16 12:00 70 09/14/16 12:00 71 09/14/16 12:00 98.1 71 20 112/64 93 09/14/16 10:00 73 09/14/16 08:56 93 70 09/14/16 08:00 70 09/14/16 08:00 92 Mechanical Ventilator 70 09/14/16 08:00 75 09/14/16 08:00 98.6 75 10 110/56 92 09/14/16 06:00 74 09/14/16 04:23 94 70 09/14/16 04:00 99.2 75 16 111/56 93 09/14/16 04:00 70 09/14/16 04:00 77 09/14/16 04:00 94 Mechanical Ventilator 70 09/14/16 02:00 78 09/14/16 01:32 93 70 09/14/16 00:00 70 09/14/16 00:00 93 Mechanical Ventilator 70 09/14/16 00:00 99.1 75 16 114/57 93 09/14/16 00:00 75 09/13/16 22:16 92 70 09/13/16 22:00 76 09/13/16 20:19 93 70 09/13/16 20:00 92 Mechanical Ventilator 70 09/13/16 20:00 70 09/13/16 20:00 99.2 80 16 118/58 92 09/13/16 20:00 80 09/14/16 09/14/16 09/14/16 07:00 15:00 23:00 Intake Total 1234 ml 675 ml Output Total 650 ml 400 ml Balance 584 ml 275 ml Result Diagram: 09/14/1662209/14/16622 Laboratory Results Laboratory Tests Test 3/7/17 3/7/17 3/7/17 06:23 09:25 12:15 White Blood Count 9.8 TH/MM3 Red Blood Count 3.39 MIL/MM3 Hemoglobin 9.4 GM/DL Hematocrit 28.6 % Mean Corpuscular Volume 84.5 FL Mean Corpuscular Hemoglobin 27.8 PG Mean Corpuscular Hemoglobin 32.9 % Concent Red Cell Distribution Width 16.3 % Platelet Count 57 TH/MM3 Mean Platelet Volume 10.9 FL Neutrophils (%) (Auto) 86.8 % Lymphocytes (%) (Auto) 6.7 % Monocytes (%) (Auto) 5.6 % Eosinophils (%) (Auto) 0.5 % Basophils (%) (Auto) 0.4 % Neutrophils # (Auto) 8.6 TH/MM3 Lymphocytes # (Auto) 0.7 TH/MM3 Monocytes # (Auto) 0.5 TH/MM3 Eosinophils # (Auto) 0.0 TH/MM3 Basophils # (Auto) 0.0 TH/MM3 CBC Comment AUTO DIFF Differential Comment AUTO DIFF CONFIRMED Platelet Estimate LOW Platelet Morphology Comment ENLARGED Sodium Level 133 MEQ/L Potassium Level 5.1 MEQ/L Chloride Level 94 MEQ/L Carbon Dioxide Level 31.8 MEQ/L Anion Gap 7 MEQ/L Blood Urea Nitrogen 64 MG/DL Creatinine 1.53 MG/DL Estimat Glomerular Filtration 45 ML/MIN Rate Random Glucose 398 MG/DL Calcium Level 8.4 MG/DL Blood Gas Puncture Site LT RADIAL LT RADIAL Blood Gas Patient Temperature 98.6 98.6 Blood Gas HCO3 30 mmol/L 29 mmol/L Blood Gas Base Excess 3.8 mmol/L 3.6 mmol/L Blood Gas Oxygen Saturation 92 % 94 % Arterial Blood pH 7.31 7.33 Arterial Blood Partial 61 mmHg 56 mmHg Pressure CO2 Arterial Blood Partial 79 mmHg 92 mmHg Pressure O2 Arterial Blood Oxygen Content 12.2 Vol % 12.8 Vol % Arterial Blood 2.2 % 2.2 % Carboxyhemoglobin Arterial Blood Methemoglobin 1.0 % 0.9 % Blood Gas Hemoglobin 9.3 G/DL 9.6 G/DL Oxygen Delivery Device VENTILATOR VENTILATOR Blood Gas Ventilator Setting 20/550/PEEP10 AC/PRVC 20,550,5PEEP Blood Gas Inspired Oxygen 70 % 70 % Culture Results Microbiology Date/Time Procedure Status Source Growth 09/14/16 04:30 Gram Stain Worksheet Sputum Endotracheal Pending 09/14/16 04:30 Sputum Culture Worksheet Sputum Endotracheal Pending Imaging Studies Last 24 hours Impressions Chest X-Ray 09/14/16 0000 Signed Impressions: Service Date/Time: Wednesday, September 14, 2016 07:59 - CONCLUSION: No change in pulmonary status with scattered airspace disease. Tip of endotracheal tube is now in the right mainstem bronchus. Patient's nurse notified. Isidro Oliver MD Administered Medications Medications (Trade) Dose Ordered Sig/Dev Route PRN Reason Start Time Stop Time Status Last Admin Dose Admin IV Flush (NS Flush) 2 ml UNSCH PRN IVF FLUSH AFTER USING IV ACCESS 08/31/16 11:15 09/12/16 08:34 Buspirone HCl (Buspar) 10 mg BID PO 08/31/16 21:00 Hold 09/12/16 08:33 Levothyroxine Sodium (Synthroid) 50 mcg DAILY@06 PO 09/01/16 06:00 09/14/16 03:48 Pravastatin Sodium (Pravachol) 40 mg DAILY PO 09/01/16 09:00 09/14/16 08:50 Pregabalin (Lyrica) 150 mg BID PO 08/31/16 21:00 Hold 09/12/16 08:34 Primidone (Mysoline) 100 mg TID PO 08/31/16 18:00 09/14/16 17:12 Trazodone HCl (Desyrel) 100 mg HS PO 08/31/16 21:00 09/13/16 19:48 Heparin Sodium (Porcine) (Heparin Inj) 5,000 units Q8HR SQ 09/01/16 14:00 Hold 09/06/16 13:27 Alprazolam (Xanax) 0.5 mg Q12HR PRN PO ANXIETY 09/01/16 14:45 09/08/16 12:58 Miscellaneous Information Patient in critical care unit? Ass... [id number] 09/04/16 20:00 09/04/16 20:00 Morphine Sulfate (Morphine Inj) 2 mg Q4H PRN IV PAIN 1 TO 10 09/05/16 11:30 09/06/16 16:06 Carvedilol (Coreg) 6.25 mg Q12HR PO 09/06/16 09:00 09/14/16 08:50 Chlorhexidine Gluconate (Peridex 0.12% Liq) 15 ml BID@08,20 MT 09/06/16 20:00 09/14/16 08:52 Senna/Docusate Sodium (Shantelle-Colace) 2 tab DAILY PO 09/06/16 17:45 09/14/16 08:50 Lorazepam (Ativan Inj) 0.25 mg Q6H PRN IV PUSH ANXIETY 09/06/16 17:45 09/12/16 04:53 Hydralazine HCl (Apresoline Inj) 10 mg Q6H PRN IV SBP> OR = 160, DBP> OR = 100 09/09/16 03:15 09/09/16 04:10 Aspirin (Aspirin Chew) 81 mg DAILY PO 09/12/16 09:00 09/14/16 15:40 Hydralazine HCl (Apresoline) 50 mg Q8HR PO 09/12/16 08:00 09/14/16 15:39 Sertraline HCl 50 mg 50 mg DAILY PO 09/13/16 09:00 09/14/16 08:50 Propofol 100 ml @ 0 mls/hr TITRATE IV 09/12/16 12:45 09/14/16 19:23 Fentanyl Citrate (fentaNYL DRIP) 250 ml @ 0 mls/hr TITRATE IV 09/12/16 15:00 09/13/16 21:56 Ferrous Sulfate (Ferrous Sulfate Liq) 300 mg BID PO 09/12/16 21:00 09/14/16 08:50 Pantoprazole Sodium (Protonix Inj) 40 mg Q12H IV PUSH 09/13/16 18:00 09/14/16 17:14 Insulin Detemir (Levemir Inj) 14 units Q12HR SQ 09/14/16 09:00 09/14/16 08:51 Methylprednisolone Sodium Succinate (SoluMEDROL INJ) 40 mg DAILY IV 09/14/16 09:00 09/14/16 08:51 Insulin Human Regular (NovoLIN R SUPPLEMENTAL SCALE) 1 Q6H SQ 09/14/16 08:00 09/14/16 13:18 Bumetanide (Bumex Inj) 2 mg BID@09,18 IV PUSH 09/14/16 18:00 09/14/16 17:13 Objective Remarks GENERAL: nad, intubated SKIN: Warm and dry. NECK: Supple, trachea midline. No JVD or lymphadenopathy. LYMPHATIC: No adenopathy. CARDIOVASCULAR: Regular rate and rhythm without murmurs. RESPIRATORY: b/l LL rales GASTROINTESTINAL: Abdomen soft, non-tender, nondistended. EXTREMITIES: No cyanosis, Assessment/Plan Problem List: (1) Thrombocytopenia Status: Acute Plan: --multifactorial d/t sepsis +/- medication effect (i.e. 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 --possibility of DIC --HIT positive--likely false positive, will await TIGIST --Shabbir negative --LDH/haptoglobin both elevated --Abdominal u/s showed chronic liver disease + splenomegaly (2) Normocytic anemia Status: Acute Plan: --haptoglobin/LDH both elevated, which is not consistent with hemolysis --Shabbir negative --stool Hemoccult negative (3) Severe sepsis Status: Resolved Plan: --+pneumonia --on antibiotic (4) Transaminitis Status: Acute Plan: --hepatitis panel negative (5) Aortic stenosis Status: Acute Plan: --Severe aortic stenosis with CHF --currently being managed by cardiology and CT surgery. Assessment 71y/o male admitted with NSTEMI, COPD exacerbation, and pneumonia. Hematology consulted for acute thrombocytopenia. history of COPD, hypertension, diabetes aortic stenosis Plan Thrombocytopenia due to DIC/Consumption--fibrinogen preserved TIGIST still pending. check daily cbc and fibrinogen Problem Qualifiers (1) Aortic stenosis: Qualified Code: I35.0 - Aortic valve stenosis, unspecified etiology Cesar Vieyra MD Sep 14, 2016 19:57
[2016-09-14] MEDS: traZODone HCL 100 MG TAB PO SCH (20:37)
[2016-09-14] MEDS: fentaNYL DRIP 250 ML IV SCH (20:38)
[2016-09-15] VITALS (17 sets, daily range): BP systolic 107–115; BP diastolic 52–55; PULSE 63–70; RESP 15–20; TEMP 97.8–98.9; O2SAT 94–96
[2016-09-15] MEDS: INSULIN NovoLIN REGULAR SUPPLEMENTAL SCALE SQ SCH ×3 (01:48→14:00)
[2016-09-15] MEDS: RESP: ALBUTEROL 2.5 MG/IPRATROPIUM 0.5 MG NEB (SCH) NEB ×4 (03:36→20:51)
--- NOTE | 2016-09-15 05:19 | RADRPT ---
EXAM DATE/TIME: 09/15/2016 04:42 [facility] COMPARISON: CHEST SINGLE AP, September 14, 2016, 7:59. INDICATIONS : Respiratory failure. MEDICAL HISTORY : None. SURGICAL HISTORY : None. ENCOUNTER: Subsequent ACUITY: 3 days PAIN SCORE: Non-responsive. LOCATION: Bilateral chest FINDINGS: A single view of the chest demonstrates diffuse bilateral airspace disease, right greater than left w ith possible associated left-sided effusion. Heart size appears to be normal. Life support tubes are stable in position. Osseous structures are intact. CONCLUSION: Stable radiographic appearance of the chest with diffuse bilateral airspace disease, right great er than left. Probable associated left-sided effusion. Delfino Sylvester MD on September 15, 2016 at 5:16 Board Certified Radiologist. This report was verified electronically.
[2016-09-15] MEDS: hydrALAZINE HCL 50 MG TAB PO SCH ×2 (05:25→13:38)
[2016-09-15] MEDS: PANTOPRAZOLE SODIUM 40 MG VIAL IV PUSH SCH ×2 (05:25→17:33)
[2016-09-15] MEDS: LEVOTHYROXINE SODIUM 50 MCG TAB PO SCH (05:26)
[2016-09-15 05:39] LABS: AUTOMATED NEUTROPHIL # 5.2 TH/MM3 (1.8-7.7); BASOPHIL % 0.2 % (0.0-2.0); EOSINOPHIL # 0.1 TH/MM3 (0-0.4); EOSINOPHIL % 0.8 % (0.0-4.0); HEMATOCRIT 27.2 % (39.0-51.0); LYMPH % 11.2 % (9.0-44.0); LYMPHOCYTE # 0.7 TH/MM3 (1.0-4.8); MEAN CELL VOLUME 83.5 FL (80.0-100.0); MEAN CORPUSCULAR HEMOGLOBIN 27.4 PG (27.0-34.0); MEAN CORPUSCULAR HGB CONC 32.8 % (32.0-36.0); MONO % 7.9 % (0.0-8.0); NEUT % 79.9 % (16.0-70.0); PLATELET COUNT 53 TH/MM3 (150-450); RED BLOOD COUNT 3.26 MIL/MM3 (4.50-5.90); RED CELL DISTRIBUTION WIDTH 16.2 % (11.6-17.2); WHITE BLOOD COUNT 6.5 TH/MM3 (4.0-11.0)
[2016-09-15 05:53] LABS: HEMO FLAGS AUTO DIFF
[2016-09-15 05:56] LABS: ALKALINE PHOSPHATASE 230 U/L (45-117); ALT (GPT) 23 U/L (12-78); ANION GAP 4 MEQ/L (5-15); AST (GOT) 17 U/L (15-37); BICARBONATE 35.2 MEQ/L (21.0-32.0); BLOOD UREA NITROGEN 71 MG/DL (7-18); CHLORIDE 95 MEQ/L (98-107); GLOMERULAR FILTRATION RATE 44 ML/MIN (>89); POTASSIUM 4.5 MEQ/L (3.5-5.1); SODIUM (NA) 134 MEQ/L (136-145); TOTAL BILIRUBIN ADULT 0.4 MG/DL (0.2-1.0)
[2016-09-15 06:47] LABS: PLATELET ESTIMATE SMEAR LOW (NORMAL); PLATELET MORPHOLOGY NORMAL (NORMAL); SCAN/DIFF AUTO DIFF CONFIRMED
--- NOTE | 2016-09-15 07:28 | HHI.CCPN ---
Subjective Remarks/Hospital Course The patient is a 71-year-old male with past medical history significant for COPD, aortic stenosis, hypertension and diabetes who presented to the emergency department with progressive shortness of breath and nonproductive cough for last 5 days. He was diagnosed and admitted to service on with [id number] MD, COPD exacerbation and probable pneumonia. He had a previous heart catheterization in 2014, was told at that time he needed to have aortic valve replacement. He was started on IV antibiotics with Rocephin and azithromycin and also was placed on IV steroids and DuoNeb breathing treatment for probable COPD exacerbation. All the cultures so far negative, also negative for influenza A and B, negative for Streptococcus and Legionella antigen. Cardiology was consulted, and echo showed moderate to severe aortic stenosis. Cardiothoracic surgery was also consulted and is following, plan for cardiac catheterization this Tuesday. A Halicat was called today as the patient was increasingly lethargic with increased dyspnea and hypoxia. He desaturated to the 70% when RN attempted to move him. Chest x-ray showed bilateral pulmonary edema worsening compared to admission. He was moved to the ICU and critical care medicine was consulted. I evaluated the patient in ICU. He is tachypneic on 100% nonrebreather. Examination revealed bilateral crackles. 60 mg of IV Lasix stat given and patient was ordered to be placed on BiPAP at 06/16. BNP was 658 SUBJECT 09/05/16: Patient did not tolerate BiPAP overnight. Currently remains on partial nonrebreather. Urine output more than 6 L in 24 hours. He developed atrial flutter with RVR, was placed on esmolol which I have changed to Cardizem. Chest x-ray shows interval improvement in my review 09/06/16: Remains on pNRB. sputum cx with strep pneumo. Urine out put diminishing. 1L bolus given with adequate response. Bilateral lung infiltrate. Discussed with Dr. Dudley. Will hold off cath until Reps failure/ALI improves and renal failure improves 09.07 Patient is on BIPAP 06/16 with FIO2 65%. Afebrile. 09/08 Patient is off BIPAP on Bumex drip 2mg/hr with UO 7.6L in 24 hrs. Afebrile feeling better. Renal function improving with Cr 1.52 from 2.07. 09/09 Patient is on partial rebreather with good sats. Afebrile. Renal function improving with Cr: 1.09 from 1.52. Remains on Bumex drip down 0.5mg/hr. 09/10 Patient was placed on Amio drip yesterday . Afebrile. Off Bumex drip. 09/11 No acute events overnight. Remains on Amio drip. On partial rebreather. CT chest last night showed no PE. 09/12 No acute events overnight. Remains on partial rebreather, off Amio drip. Afebrile. 09/13 Patient was intubated yesterday for resp distress and hypoxemia. Sedated with Diprivan and Fentanyl. Afebrile. On PRVC/AC RR 18, TV 550, PEEP: 10, FIO2 60%. 09/14 Patient is sedated with Diprivan and Fentanyl. Off Bumex drip, afebrile. Cr 1.53 today from 1.41. 09/15: Remains sedated. FiO2 70% with PEEP of 10. CXR unchanged. Creat 1.57. CXR remains same with bilateral infiltrates Objective Vital Signs Date Time Temp Pulse Resp B/P Pulse Ox O2 Delivery O2 Flow Rate FiO2 09/15/16 06:00 64 09/15/16 04:34 96 70 09/15/16 04:00 Mechanical Ventilator 09/15/16 04:00 97.8 20 109/52 09/12/16 12:00 15.00 Intake and Output 09/14/16 09/14/16 09/15/16 08:00 16:00 00:00 Intake Total 1234 ml 675 ml 568 ml Output Total 650 ml 400 ml 650 ml Balance 584 ml 275 ml -82 ml Result Diagram: 09/15/16 0422 09/15/16 0422 Other Results Laboratory Tests Test 09/14/16 09/14/16 09:25 12:15 Blood Gas Puncture Site LT RADIAL LT RADIAL Blood Gas Patient Temperature 98.6 98.6 Blood Gas HCO3 30 mmol/L 29 mmol/L (22-26) (22-26) Blood Gas Base Excess 3.8 mmol/L 3.6 mmol/L (-2-2) (-2-2) Blood Gas Oxygen Saturation 92 % (90-100) 94 % (90-100) Arterial Blood pH 7.31 7.33 (7.380-7.420) (7.380-7.420) Arterial Blood Partial 61 mmHg (38-42) 56 mmHg (38-42) Pressure CO2 Arterial Blood Partial 79 mmHg 92 mmHg Pressure O2 (61-120) (61-120) Arterial Blood Oxygen Content 12.2 Vol % 12.8 Vol % (12.0-20.0) (12.0-20.0) Arterial Blood 2.2 % (0-4) 2.2 % (0-4) Carboxyhemoglobin Arterial Blood Methemoglobin 1.0 % (0-2) 0.9 % (0-2) Blood Gas Hemoglobin 9.3 G/DL 9.6 G/DL (12.0-16.0) (12.0-16.0) Oxygen Delivery Device VENTILATOR VENTILATOR Blood Gas Ventilator Setting 20/550/PEEP10 AC/PRVC 20,550,5PEEP Blood Gas Inspired Oxygen 70 % 70 % Imaging Last Impressions Chest X-Ray 09/13/16 0000 Signed Impressions: Service Date/Time: Tuesday, September 13, 2016 07:57 - CONCLUSION: Diffuse bilateral airspace consolidation remains present but has improved since yesterday's examination. Frank Young MD Lower Extremity Ultrasound 09/11/16 0000 Signed Impressions: Service Date/Time: Sunday, September 11, 2016 12:30 - CONCLUSION: No DVT is identified within either lower extremity. Frank Young MD CT Angiography 09/10/16 0000 Signed Impressions: Service Date/Time: Sunday, September 11, 2016 01:05 - CONCLUSION: No evidence of pulmonary embolism. Frank Hardin MD Abdomen Ultrasound 09/07/16 0000 Signed Impressions: Service Date/Time: Wednesday, September 07, 2016 16:45 - CONCLUSION: Heterogeneous hepatic echotexture consistent with chronic liver disease. Splenomegaly Mild to moderate ascites Mildly thickened gallbladder wall without evidence of gallstones. No evidence of hydronephrosis. Isidro Oliver MD Upper Extremity Ultrasound 09/06/16 0000 Signed Impressions: Service Date/Time: Tuesday, September 06, 2016 20:43 - CONCLUSION: No evidence of DVT. Isidro Oliver MD Chest CT 09/05/16 0000 Signed Impressions: Service Date/Time: Monday, September 05, 2016 15:37 - CONCLUSION: 1. Cardiomegaly with diffuse ground glass densities and consolidation likely pulmonary edema and/or pneumonia. 2. Small bilateral pleural effusions. 3. Prominent lymphadenopathy in the mediastinum. Cameron Archer MD Objective Remarks Gen: 71-year-old male lying in bed intubated and sedated. Head: Normocephalic. Atraumatic. EENT: Pupils equal round and reactive to light. Cardiovascular: S1-S2 normal. Systolic murmur heard in the aortic area Respiratory: B/l equal air entry with few coarse BS. No crackles or wheezes Abdomen: Soft, nontender, nondistended. No peritoneal signs. Musculoskeletal: No gross deformities. No edema. Skin: No obvious rashes or erythema. Neuro: Sedated. Withdraws extremities to pain. Moves all extremities spontaneously on sedation hold Urinary Catheter: Yes Assessment to: Continue A/P Assessment and Plan NEURO: -Monitor neuro status -On Diprivan and Fentanyl infusion for sedation and vent synchrony. Daily sedation vacation. RESP: Acute hypoxemic respiratory failure ARDS Pneumococcal pneumonia COPD exacerbation -On PRVC/AC RR 16, TV 550, PEEP:10, FIO2 70%., IT:0.9. Unchanged CXR- Reduce FiO2 to 55 after increasing PEEP to 12 -Continue with vent support keep sat >90% -Bronchodilators. Solu-Medrol 40mg IV daily -3/3 CTA chest last night showed no PE CV: Severe aortic stenosis CHF NSTEMI -Monitor HR and BP keep MAP>65mmHg -Continue aspirin, Coreg 6.25mg BID, Hydralazine 50mg Q8, on pravastatin. -Echo showed EF 50-55%, mod-severe -Cardiothoracic surgery and cardiology Dr. Dudley is following -[facility] on hold due to resp failure and renal failure- discussed with Dr. Dudley. GI: -Elevated LFT's..trending down -On Glucerna 1.5@45ml/hr. -Protonix for GI prophylaxis -Monitor LFT's ( trending down) -US abdomen: Chronic liver disease. Splenomegaly Mild to moderate ascites Mildly thickened gallbladder wall without evidence of gallstones. No evidence of hydronephrosis. : Acute kidney injury. Hyponatremia. -Off Bumex drip. Cr increased 1.57 from1.53 , UO: 1400ml in 24 hrs -Monitor renal function, I/O's, avoid nephrotoxins. -Renal- Dr. Roa. Renal US: No hydronephrosis ID: Severe Sepsis Pneumococcal pneumonia -ID dcd Teflaro on 09/14/16. D/W Dr. Henderson. In my opinion patient has noncardiogenic pulmonary edema/ARDS -Watching off ABX per ID recommendation. (Received 5 days of Teflaro, but received Vanc prior to that) -Sputum culture positive for strep pneumo. Influenza negative -Recheck sputum cx 09/14 pending HEME: -Monitor CBC, CMP, coags. Hep PLT ab positive, will discuss TIGIST with Heme -Heme is following ENDO: Type 2 diabetes Hypothyroidism -Increase SSI high scale for glycemic control. Levemir 14u Q12, taper steroids -Continue Synthroid 50 mcg daily. TSH: 0.373 PROPH: -Bilateral lower extremity SCDs. Protonix for GI prophylaxis. Heparin SQ on hold for thrombocytopenia LINES: -Utilize peripheral IVs, CCT 30 mins Minnie Marie MD Sep 15, 2016 07:28
--- NOTE | 2016-09-15 07:37 | PD.CARD.PN ---
Subjective Subjective Remarks intubated, sedated and mechanically ventilated Objective Vital Signs / I&O Vital Signs Date Time Temp Pulse Resp B/P Pulse Ox O2 Delivery O2 Flow Rate FiO2 09/15/16 06:00 64 09/15/16 04:34 96 70 09/15/16 04:00 Mechanical Ventilator 70 09/15/16 04:00 97.8 65 20 109/52 96 09/15/16 04:00 70 09/15/16 04:00 65 09/15/16 02:00 63 09/15/16 01:52 95 70 09/15/16 00:00 70 09/15/16 00:00 65 09/15/16 00:00 Mechanical Ventilator 70 09/15/16 00:00 98.9 65 20 113/54 95 09/14/16 22:34 95 70 09/14/16 22:00 68 09/14/16 20:27 93 70 09/14/16 20:00 70 09/14/16 20:00 98.6 79 20 135/63 94 09/14/16 20:00 79 09/14/16 20:00 Mechanical Ventilator 70 09/14/16 18:03 73 09/14/16 16:29 93 70 09/14/16 16:27 91 Mechanical Ventilator 70 09/14/16 16:27 98.0 72 21 122/58 91 09/14/16 16:27 70 09/14/16 16:25 72 09/14/16 14:00 72 09/14/16 12:15 94 70 09/14/16 12:00 93 Mechanical Ventilator 70 09/14/16 12:00 70 09/14/16 12:00 71 09/14/16 12:00 98.1 71 20 112/64 93 09/14/16 10:00 73 09/14/16 08:56 93 70 09/14/16 08:00 70 09/14/16 08:00 92 Mechanical Ventilator 70 09/14/16 08:00 75 09/14/16 08:00 98.6 75 10 110/56 92 I/O 09/14/16 09/14/16 09/14/16 09/15/16 09/15/16 09/15/16 07:00 15:00 23:00 07:00 15:00 23:00 Intake Total 1234 ml 675 ml 568 ml 448 ml Output Total 650 ml 400 ml 650 ml 350 ml Balance 584 ml 275 ml -82 ml 98 ml IV Total 701 ml 390 ml 205 ml 162 ml Tube Feeding 333 ml 285 ml 363 ml 286 ml Other 200 ml Output Urine Total 650 ml 400 ml 650 ml 350 ml # Bowel Movements 0 0 Physical Exam GENERAL: Well-nourished, well-developed patient in no apparent distress. NECK: No JVD. No carotid bruit. CARDIOVASCULAR: Regular rate and rhythm. S1/S2 no rub or gallop. II/ STEVE LSB RESPIRATORY: No accessory muscle use. mild rhonchi to auscultation. Breath sounds equal bilaterally. GASTROINTESTINAL: Abdomen soft, non-tender, nondistended. MUSCULOSKELETAL: Extremities without clubbing, cyanosis, or edema. Laboratory Laboratory Tests Test 09/14/16 09/14/16 09/15/16 09:25 12:15 04:22 Blood Gas Puncture Site LT RADIAL LT RADIAL Blood Gas Patient Temperature 98.6 98.6 Blood Gas HCO3 30 mmol/L 29 mmol/L Blood Gas Base Excess 3.8 mmol/L 3.6 mmol/L Blood Gas Oxygen Saturation 92 % 94 % Arterial Blood pH 7.31 7.33 Arterial Blood Partial 61 mmHg 56 mmHg Pressure CO2 Arterial Blood Partial 79 mmHg 92 mmHg Pressure O2 Arterial Blood Oxygen Content 12.2 Vol % 12.8 Vol % Arterial Blood 2.2 % 2.2 % Carboxyhemoglobin Arterial Blood Methemoglobin 1.0 % 0.9 % Blood Gas Hemoglobin 9.3 G/DL 9.6 G/DL Oxygen Delivery Device VENTILATOR VENTILATOR Blood Gas Ventilator Setting 20/550/PEEP10 AC/PRVC 20,550,5PEEP Blood Gas Inspired Oxygen 70 % 70 % White Blood Count 6.5 TH/MM3 Red Blood Count 3.26 MIL/MM3 Hemoglobin 8.9 GM/DL Hematocrit 27.2 % Mean Corpuscular Volume 83.5 FL Mean Corpuscular Hemoglobin 27.4 PG Mean Corpuscular Hemoglobin 32.8 % Concent Red Cell Distribution Width 16.2 % Platelet Count 53 TH/MM3 Mean Platelet Volume 10.6 FL Neutrophils (%) (Auto) 79.9 % Lymphocytes (%) (Auto) 11.2 % Monocytes (%) (Auto) 7.9 % Eosinophils (%) (Auto) 0.8 % Basophils (%) (Auto) 0.2 % Neutrophils # (Auto) 5.2 TH/MM3 Lymphocytes # (Auto) 0.7 TH/MM3 Monocytes # (Auto) 0.5 TH/MM3 Eosinophils # (Auto) 0.1 TH/MM3 Basophils # (Auto) 0.0 TH/MM3 CBC Comment AUTO DIFF Differential Comment AUTO DIFF CONFIRMED Platelet Estimate LOW Platelet Morphology Comment NORMAL Sodium Level 134 MEQ/L Potassium Level 4.5 MEQ/L Chloride Level 95 MEQ/L Carbon Dioxide Level 35.2 MEQ/L Anion Gap 4 MEQ/L Blood Urea Nitrogen 71 MG/DL Creatinine 1.57 MG/DL Estimat Glomerular Filtration 44 ML/MIN Rate Random Glucose 259 MG/DL Calcium Level 8.3 MG/DL Total Bilirubin 0.4 MG/DL Aspartate Amino Transf 17 U/L (AST/SGOT) Alanine Aminotransferase 23 U/L (ALT/SGPT) Alkaline Phosphatase 230 U/L B-Type Natriuretic Peptide 257 PG/ML Total Protein 5.5 GM/DL Albumin 2.2 GM/DL Assessment and Plan Problem List: (1) NSTEMI (non-ST elevated myocardial infarction) (2) Aortic stenosis (3) Congestive heart failure (CHF) (4) Hypertension Assessment and Plan NSTEMI - contiue medical management - moderate to severe mean gradient 20 mmHg and valve area 0.88 cm2 ARF - creatinine increased HTN - blood pressure well controlled PNA - conitnue ABX Hyponatremia - recommend keeping euvolemic Will sign off, please call us back once extubated. Problem Qualifiers (1) Aortic stenosis: Qualified Code: I35.0 - Aortic valve stenosis, unspecified etiology (2) Congestive heart failure (CHF): (3) Hypertension: Qualified Code: I10 - Essential hypertension Bandar Yu Sep 15, 2016 07:37
[2016-09-15] MEDS: CHLORHEXIDINE 0.12% (ORAL KIT) 15 ML CUP MT SCH (08:00)
[2016-09-15] MEDS: CARVEDILOL 6.25 MG TAB PO SCH ×2 (08:12→20:32)
[2016-09-15] MEDS: ASPIRIN 81 MG CHEW TAB PO SCH (08:12)
[2016-09-15] MEDS: BUMETANIDE INJ 1 MG/4 ML VIAL IV PUSH SCH ×3 (08:12→17:48)
[2016-09-15] MEDS: FERROUS SULFATE 300 MG /5ML UDC PO SCH ×2 (08:12→20:32)
[2016-09-15] MEDS: DOCUSATE SODIUM 50 MG/SENNA 8.6 MG TAB PO SCH (08:13)
[2016-09-15] MEDS: PRIMIDONE 50 MG TAB PO SCH ×3 (08:13→17:53)
[2016-09-15] MEDS: PRAVASTATIN SOD 40 MG TAB PO SCH (08:13)
[2016-09-15] MEDS: SERTRALINE HCL 50 MG TAB PO SCH (08:14)
[2016-09-15] MEDS: INSULIN DETEMIR 100 UNITS/ML VIAL SQ SCH ×2 (08:19→20:32)
[2016-09-15] MEDS: methylPREDNISolone SOD SUCC 40 MG/1 ML VIAL IV SCH (08:21)
[2016-09-15] MEDS: PROPOFOL 1000 MG/100 ML INJ 100 ML IV SCH ×3 (08:32→21:06)
--- NOTE | 2016-09-15 09:39 | HHI.FPPN ---
Subjective Remarks Patient remains intubated and lightly sedated. Nurse states that he was somewhat agitated earlier. Now on 2-point restraints. and soon to be [id number] at bedside. They wanted to know his prognosis. (Eko,Rupali U R1) Objective Vitals Vital Signs Date Time Temp Pulse Resp B/P Pulse Ox O2 Delivery O2 Flow Rate FiO2 09/15/16 09:04 96 55 09/15/16 08:00 70 09/15/16 08:00 98.4 66 18 107/55 95 09/15/16 08:00 66 09/15/16 06:00 64 09/15/16 04:34 96 70 09/15/16 04:00 Mechanical Ventilator 70 09/15/16 04:00 97.8 65 20 109/52 96 09/15/16 04:00 70 09/15/16 04:00 65 09/15/16 02:00 63 09/15/16 01:52 95 70 09/15/16 00:00 70 09/15/16 00:00 65 09/15/16 00:00 Mechanical Ventilator 70 09/15/16 00:00 98.9 65 20 113/54 95 09/14/16 22:34 95 70 09/14/16 22:00 68 09/14/16 20:27 93 70 09/14/16 20:00 70 09/14/16 20:00 98.6 79 20 135/63 94 09/14/16 20:00 79 09/14/16 20:00 Mechanical Ventilator 70 09/14/16 18:03 73 09/14/16 16:29 93 70 09/14/16 16:27 91 Mechanical Ventilator 70 09/14/16 16:27 98.0 72 21 122/58 91 09/14/16 16:27 70 09/14/16 16:25 72 09/14/16 14:00 72 09/14/16 12:15 94 70 09/14/16 12:00 93 Mechanical Ventilator 70 09/14/16 12:00 70 09/14/16 12:00 71 09/14/16 12:00 98.1 71 20 112/64 93 09/14/16 10:00 73 I/O 09/14/16 09/14/16 09/14/16 09/15/16 09/15/16 09/15/16 07:00 15:00 23:00 07:00 15:00 23:00 Intake Total 1234 ml 675 ml 568 ml 448 ml Output Total 650 ml 400 ml 650 ml 350 ml Balance 584 ml 275 ml -82 ml 98 ml IV Total 701 ml 390 ml 205 ml 162 ml Tube Feeding 333 ml 285 ml 363 ml 286 ml Other 200 ml Output Urine Total 650 ml 400 ml 650 ml 350 ml # Bowel Movements 0 0 (Eko,Rupali U R1) Result Diagram: 09/15/162 09/15/16 042 Imaging Last Impressions Chest X-Ray 09/15/16 0600 Signed Impressions: Service Date/Time: Thursday, September 15, 2016 04:42 - CONCLUSION: Stable radiographic appearance of the chest with diffuse bilateral airspace disease, right greater than left. Probable associated left-sided effusion. Delfino Sylvester MD Lower Extremity Ultrasound 09/11/16 0000 Signed Impressions: Service Date/Time: Sunday, September 11, 2016 12:30 - CONCLUSION: No DVT is identified within either lower extremity. Frank Young MD CT Angiography 09/10/16 0000 Signed Impressions: Service Date/Time: Sunday, September 11, 2016 01:05 - CONCLUSION: No evidence of pulmonary embolism. Frank Hardin MD Abdomen Ultrasound 09/07/16 0000 Signed Impressions: Service Date/Time: Wednesday, September 07, 2016 16:45 - CONCLUSION: Heterogeneous hepatic echotexture consistent with chronic liver disease. Splenomegaly Mild to moderate ascites Mildly thickened gallbladder wall without evidence of gallstones. No evidence of hydronephrosis. Isidro Oliver MD Upper Extremity Ultrasound 09/06/16 0000 Signed Impressions: Service Date/Time: Tuesday, September 06, 2016 20:43 - CONCLUSION: No evidence of DVT. Isidro Oliver MD Chest CT 09/05/16 0000 Signed Impressions: Service Date/Time: Monday, September 05, 2016 15:37 - CONCLUSION: 1. Cardiomegaly with diffuse ground glass densities and consolidation likely pulmonary edema and/or pneumonia. 2. Small bilateral pleural effusions. 3. Prominent lymphadenopathy in the mediastinum. Cameron Archer MD Objective Remarks Gen.: Lying in bed, intubated, sedated Head: Normocephalic. Atraumatic. EENT: Pupils equal round and reactive to light. Nose without drainage. Airway intact. Cardiovascular: Regular rate and rhythm. 2/6 systolic ejection murmur along left sternal border. Respiratory: CTAB bilaterally Abdomen: Soft, nontender, nondistended. No peritoneal signs. Musculoskeletal: No gross deformities. No edema. Skin: No obvious rashes or erythema. Neuro: Intubated, sedated (Rupali Eddy MD R1) A/P Assessment and Plan 71-year-old male who presented with a 5-day history of shortness of breath and nonproductive cough. ACS rule out positive for NSTEMI. Patient has a history of COPD and was admitted with sepsis with cardiology consultation for NSTEMI. Developed respiratory distress on 09/04 and was transferred to the ICU with critical care consult. Tolerated BiPAP vs nonrebreather vs nasal cannula for several days, but due to worsening respiratory distress, he was intubated on 09/12. Cardiology to perform left heart catheterization when clinically better. Pulmonology on board. Nephrology consulted for PHILIPPE. Hematology consulted due to thrombocytopenia. Discharge Planning Pending clinical improvement (Rupali Eddy MD R1) Attending Attestation Patient seen and examined. Case reviewed and discussed Agree with plan of care as discussed with me and documented in the resident note. Dw family and RN at the bedside. (She Harris MD) Problem List: (1) Respiratory distress Status: Acute Plan: Intubated and sedated in the ICU -Critical care managing - will follow recs -Decrease FiO2 as tolerated -Daily sedation vacation -Steroids per critical care -DuoNebs every 6 hours -I's and O's -Daily weights (2) NSTEMI (non-ST elevated myocardial infarction) Status: Acute Plan: -Patient with elevated troponins to 1.[address] elevations in V1 V3 on admission -Cardiology signed off - may reconsult after clinical improvement -Left heart catheter when clinically able to tolerate procedure -Continue medical management (3) Aortic stenosis Status: Acute Plan: -Cardiothoracic surgery consulted -Cardiology and cardiothoracic surgery to discuss plans going forward -Will need to optimize medical management prior to performing any procedures -Pulmonology consulted given high surgical risk- appreciate recommendations (4) Pneumonia Status: Acute Plan: -Strep pneumoniae in sputum culture Infectious disease consult -Discontinue Ceftarolin 300 mg IV every 12 hours after 5 days of treatment -Will watch patient off of antibiotics (5) CHF due to valvular disease Status: Acute Plan: Echo performed on 09/02 showed EF of 5055 percent. -Aortic valve with moderate to severe stenosis -Coreg 3.125 mg by mouth every 12 hours (6) PHILIPPE (acute kidney injury) Status: Acute Plan: Creatinine 1.57 -Nephrology on board -Monitor I's and O's -Avoid nephrotoxins -Off Bumex drip -Increase intermittent Bumex to 2 mg IV TID (7) Thrombocytopenia Status: Acute Plan: Currently stable -Decreased aspirin to 81mg daily -Hematology consulted -Suspect due to DIC/Consumption--fibrinogen preserved -Heparin subcutaneous discontinued -HIT positive, but likely false positive, TIGIST results are available -Hepatitis panel negative -Abdominal ultrasound on 09/07 shows heterogeneous hepatic echo texture consistent with chronic liver disease, splenomegaly, mild to moderate ascites -Continue to monitor daily CBC (8) Diabetes Status: Chronic Plan: Patient's home regimen is NPH 25 units every morning and 50 units daily at bedtime -Intubated, on tube feeds -Currently on Levemir 14 units twice a day per critical care -Continue Medium SSI -Taper steroids -Adjust insulin regimen as needed (9) COPD exacerbation Status: Acute Plan: Patient with known COPD and [id number] history of smoking Albuterol every 2 hours when necessary DuoNeb nebs every 4 hours scheduled Solu-Medrol 40 mg every 12 hours (10) Hyponatremia Status: Acute Plan: -Pseudohyponatremia vs SIADH vs some element of both -Serum osmolality elevated at 304 -Uric acid within normal limits -Will follow with daily BMPs -Strict I's and O's (11) Hypertension Status: Chronic Plan: Continue Coreg. Hydralazine when necessary. Continue losartan (12) Anxiety and depression Status: Chronic Plan: -Continue home meds on adjusted regimen -Trazodone 100 mg by mouth daily - -Sertraline 100 mg by mouth daily - taper to 50mg -Buspirone 10mg BID - hold -Primidone 100mg PO BID - continue (13) BPH (benign prostatic hyperplasia) Status: Chronic Plan: -History of BPH -Patient states history of using Flomax but not on current list of medications -Will consider starting Flomax if patient has symptoms (14) Severe sepsis Status: Resolved Plan: Septic on admission Currently off antibiotics Repeat blood cultures negative to date Abx History: -Ceftarolin 600 mg every 12 hours IV, started on 09/10. DC 09/14 -Vancomycin 1250mg IV Q12h with pharmacy consult and Zosyn 3.375mg IV Q6h (dc ) -Azithromycin 500 mg by mouth every 24 hours started on 09/01. Dc'd on 09/07 (15) FEN/DVT PPX/GI PPX Status: Acute Plan: Fluids: per CC Electrolytes: Will monitor and replace as needed Nutrition: Tube feeds DVT Prophylaxis: Bilateral SCDs, heparin discontinued due to thrombocytopenia GI Prophylaxis: None currently (Rupali Eddy MD R1) Problem Qualifiers (1) Aortic stenosis: Qualified Code: I35.0 - Aortic valve stenosis, unspecified etiology (2) Pneumonia: Qualified Code: J18.9 - Pneumonia of both lungs due to infectious organism, unspecified part of lung (3) Diabetes: (4) Hypertension: Qualified Code: I10 - Essential hypertension Rupali Eddy MD R1 Sep 15, 2016 09:39 She Harris MD Sep 15, 2016 16:33
--- NOTE | 2016-09-15 11:05 | HHI.NPPN ---
Subjective Complaints: Confused, Shortness of Breath General Problems: Edema Renal Failure: Chronic, Acute Interval History Remains intubated, sedated. Now on 50% Fi02. Renal function stable overnight. ( Prachi Palencia) Review of Systems General General Remarks unable to evaluate (Prachi Palencia) Objective Data Data 09/14/16 09/15/16 19:00 07:00 Intake Total 675 ml 1016 ml Output Total 400 ml 1000 ml Balance 275 ml 16 ml IV Total 390 ml 367 ml Tube Feeding 285 ml 649 ml Output Urine Total 400 ml 1000 ml # Bowel Movements 0 Vital Signs Date Time Temp Pulse Resp B/P Pulse Ox O2 Delivery O2 Flow Rate FiO2 09/15/16 10:00 66 09/15/16 09:04 96 55 09/15/16 08:00 70 09/15/16 08:00 95 Mechanical Ventilator 70 09/15/16 08:00 98.4 66 18 107/55 95 09/15/16 08:00 66 09/15/16 06:00 64 09/15/16 04:34 96 70 09/15/16 04:00 Mechanical Ventilator 70 09/15/16 04:00 97.8 65 20 109/52 96 09/15/16 04:00 70 09/15/16 04:00 65 09/15/16 02:00 63 09/15/16 01:52 95 70 09/15/16 00:00 70 09/15/16 00:00 65 09/15/16 00:00 Mechanical Ventilator 70 09/15/16 00:00 98.9 65 20 113/54 95 09/14/16 22:34 95 70 09/14/16 22:00 68 09/14/16 20:27 93 70 09/14/16 20:00 70 09/14/16 20:00 98.6 79 20 135/63 94 09/14/16 20:00 79 09/14/16 20:00 Mechanical Ventilator 70 09/14/16 18:03 73 09/14/16 16:29 93 70 09/14/16 16:27 91 Mechanical Ventilator 70 09/14/16 16:27 98.0 72 21 122/58 91 09/14/16 16:27 70 09/14/16 16:25 72 09/14/16 14:00 72 09/14/16 12:15 94 70 09/14/16 12:00 93 Mechanical Ventilator 70 09/14/16 12:00 70 09/14/16 12:00 71 09/14/16 12:00 98.1 71 20 112/64 93 (Prachi Palencia) -: 09/15/16 0422 09/15/16 0422 Imaging Last 72 hours Impressions Chest X-Ray 09/15/16 0600 Signed Impressions: Service Date/Time: Thursday, September 15, 2016 04:42 - CONCLUSION: Stable radiographic appearance of the chest with diffuse bilateral airspace disease, right greater than left. Probable associated left-sided effusion. Delfino Sylvester MD Chest X-Ray 09/14/16 0000 Signed Impressions: Service Date/Time: Wednesday, September 14, 2016 07:59 - CONCLUSION: No change in pulmonary status with scattered airspace disease. Tip of endotracheal tube is now in the right mainstem bronchus. Patient's nurse notified. Isidro Oliver MD Chest X-Ray 09/13/16 0000 Signed Impressions: Service Date/Time: Tuesday, September 13, 2016 07:57 - CONCLUSION: Diffuse bilateral airspace consolidation remains present but has improved since yesterday's examination. Frank Young MD Tubes & Lines: Ortega Drip Comment fentanyl, propofol (Prachi Palencia) Physical Exam General Appearance: Well Developed, Well Nourished, No Acute Distress Appearance Remarks intubated/sedated/unresponsive (Prachi Palencia) Throat Throat Exam: Oral Mucosa [place] & Moist (Prachi Palencia) Pulmonary Resp Exam: Breath Sounds Equal, Crackles, Decreased Bases (Prachi Palencia) Cardiology CV Exam: Regular, Good Perfusion (Prachi Palencia) Gastrointestinal/Abdomen GI Exam: Soft, Non-Tender, Bowel Sounds Present (Prachi Palencia) Genitourinary Exam: Clear Urine (Prachi Palencia) Musculoskeletal MS Exam: Joints Intact, Normal Gait, Normal Tone (Prachi Palencia) Integumentary Skin Exam: Clear, Warm, Dry, Intact, Tenting (Prachi Palencia) Extremeties Extremities Exam: Pedal Pulses Palpable, Moderate Edema (Prachi Palencia) Neurologic Neuro Exam: Unresponsive, Sedated (Prachi Palencia) Psychiatric Psych Exam: Appropriate Responses (Prachi Palencia) Assessment/Plan Discussed Condition With: Spouse, Relative Assessment Summary: PHILIPPE/Acute Renal Failure Problem List: (1) PHILIPPE (acute kidney injury) Plan: initial ARF due to ATN, secondary to renal hypoperfusion injury (sepsis , hypotension, A fib RVR); that had resolved renal function has stabilized off IVF, on intermittent Bumex, increase to 2 mg IV TID monitor response, he is non oliguric follow electrolytes, replace as needed BUN high, may be due to steroids avoid nephrotoxins, heart cath on hold ortega in place for I/O measurement daily renal panel (2) Congestive heart failure (CHF) Plan: monitor fluid volume status diuresis as above (3) Diabetes Plan: continue insulin therapy monitor glucose, goal 140-180 mg/dL (4) Hypertension Plan: not on pressors BP borderline low, antihypertensives on hold (5) Severe sepsis Plan: previously being treated for strep pneumonia now with ARDS type presentation, 02 requirement now at 50% ID following, plan to monitor off antibiotics WBC normalized (6) Aortic stenosis Plan: cardiology signed off until he is extubated plan for heart cath if clinically improved (7) A-fib Plan: off Amiodarone gtt rage controlled (Prachi Palencia) Problem List: (1) PHILIPPE (acute kidney injury) Plan: initial ARF due to ATN, secondary to renal hypoperfusion injury (sepsis , hypotension, A fib RVR); that had resolved renal function has stabilized off IVF, on intermittent Bumex, increase to 2 mg IV TID monitor response, he is non oliguric follow electrolytes, replace as needed BUN high, may be due to steroids avoid nephrotoxins, heart cath on hold ortega in place for I/O measurement daily renal panel (2) Congestive heart failure (CHF) Plan: monitor fluid volume status diuresis as above (3) Diabetes Plan: continue insulin therapy monitor glucose, goal 140-180 mg/dL (4) Hypertension Plan: not on pressors BP borderline low, antihypertensives on hold (5) Severe sepsis Plan: previously being treated for strep pneumonia now with ARDS type presentation, 02 requirement now at 50% ID following, plan to monitor off antibiotics WBC normalized (6) Aortic stenosis Plan: cardiology signed off until he is extubated plan for heart cath if clinically improved (7) A-fib Plan: off Amiodarone gtt rage controlled Plan patient was seen and examined. We increased Bumex 2 mg IV TID. Monitor urine output and renal function. (Gentry Roa MD) Problem Qualifiers (1) Congestive heart failure (CHF): (2) Diabetes: (3) Hypertension: Qualified Code: I10 - Essential hypertension (4) Aortic stenosis: Qualified Code: I35.0 - Aortic valve stenosis, unspecified etiology Prachi Palencia Sep 15, 2016 11:05 Gentry Roa MD Sep 16, 2016 09:52
[2016-09-15] MEDS: SODIUM CHLORIDE 0.9% FLUSH 5 ML FLUSH IVF PRN (13:00)
--- NOTE | 2016-09-15 13:21 | PD.ONC.PN ---
Subjective Subjective Remarks Afebrile overnight. Pt supine in bed sedated and mechanically ventilated. Per RN no bleeding. Objective Data Date Time Temp Pulse Resp B/P Pulse Ox O2 Delivery O2 Flow Rate FiO2 09/15/16 12:00 64 09/15/16 12:00 98.4 64 15 109/53 95 09/15/16 12:00 95 Mechanical Ventilator 55 09/15/16 12:00 55 09/15/16 10:00 66 09/15/16 09:04 96 55 09/15/16 08:00 70 09/15/16 08:00 95 Mechanical Ventilator 70 09/15/16 08:00 98.4 66 18 107/55 95 09/15/16 08:00 66 09/15/16 06:00 64 09/15/16 04:34 96 70 09/15/16 04:00 Mechanical Ventilator 70 09/15/16 04:00 97.8 65 20 109/52 96 09/15/16 04:00 70 09/15/16 04:00 65 09/15/16 02:00 63 09/15/16 01:52 95 70 09/15/16 00:00 70 09/15/16 00:00 65 09/15/16 00:00 Mechanical Ventilator 70 09/15/16 00:00 98.9 65 20 113/54 95 09/14/16 22:34 95 70 09/14/16 22:00 68 09/14/16 20:27 93 70 09/14/16 20:00 70 09/14/16 20:00 98.6 79 20 135/63 94 09/14/16 20:00 79 09/14/16 20:00 Mechanical Ventilator 70 09/14/16 18:03 73 09/14/16 16:29 93 70 09/14/16 16:27 91 Mechanical Ventilator 70 09/14/16 16:27 98.0 72 21 122/58 91 09/14/16 16:27 70 09/14/16 16:25 72 09/14/16 14:00 72 09/15/16 09/15/16 09/15/16 07:00 15:00 23:00 Intake Total 448 ml Output Total 350 ml Balance 98 ml Result Diagram: 09/15/16 0422 09/15/16 0422 Laboratory Results Laboratory Tests Test 09/15/16 09/15/16 04:22 09:13 White Blood Count 6.5 TH/MM3 Red Blood Count 3.26 MIL/MM3 Hemoglobin 8.9 GM/DL Hematocrit 27.2 % Mean Corpuscular Volume 83.5 FL Mean Corpuscular Hemoglobin 27.4 PG Mean Corpuscular Hemoglobin 32.8 % Concent Red Cell Distribution Width 16.2 % Platelet Count 53 TH/MM3 Mean Platelet Volume 10.6 FL Neutrophils (%) (Auto) 79.9 % Lymphocytes (%) (Auto) 11.2 % Monocytes (%) (Auto) 7.9 % Eosinophils (%) (Auto) 0.8 % Basophils (%) (Auto) 0.2 % Neutrophils # (Auto) 5.2 TH/MM3 Lymphocytes # (Auto) 0.7 TH/MM3 Monocytes # (Auto) 0.5 TH/MM3 Eosinophils # (Auto) 0.1 TH/MM3 Basophils # (Auto) 0.0 TH/MM3 CBC Comment AUTO DIFF Differential Comment AUTO DIFF CONFIRMED Platelet Estimate LOW Platelet Morphology Comment NORMAL Sodium Level 134 MEQ/L Potassium Level 4.5 MEQ/L Chloride Level 95 MEQ/L Carbon Dioxide Level 35.2 MEQ/L Anion Gap 4 MEQ/L Blood Urea Nitrogen 71 MG/DL Creatinine 1.57 MG/DL Estimat Glomerular Filtration 44 ML/MIN Rate Random Glucose 259 MG/DL Calcium Level 8.3 MG/DL Total Bilirubin 0.4 MG/DL Aspartate Amino Transf 17 U/L (AST/SGOT) Alanine Aminotransferase 23 U/L (ALT/SGPT) Alkaline Phosphatase 230 U/L B-Type Natriuretic Peptide 257 PG/ML Total Protein 5.5 GM/DL Albumin 2.2 GM/DL Procalcitonin 0.13 ng/mL Culture Results Microbiology Date/Time Procedure Status Source Growth 09/14/16 04:30 Gram Stain - Final Resulted Sputum Endotracheal 09/14/16 04:30 Sputum Culture - Preliminary Resulted Sputum Endotracheal RARE GROWTH NORMAL RESPIRATORY FREDY ... Imaging Studies Last 24 hours Impressions Chest X-Ray 09/15/16 0600 Signed Impressions: Service Date/Time: Thursday, September 15, 2016 04:42 - CONCLUSION: Stable radiographic appearance of the chest with diffuse bilateral airspace disease, right greater than left. Probable associated left-sided effusion. Delfino Sylvester MD Administered Medications Medications (Trade) Dose Ordered Sig/Dev Route PRN Reason Start Time Stop Time Status Last Admin Dose Admin IV Flush (NS Flush) 2 ml UNSCH PRN IVF FLUSH AFTER USING IV ACCESS 08/31/16 11:15 09/12/16 08:34 Buspirone HCl (Buspar) 10 mg BID PO 08/31/16 21:00 Hold 09/12/16 08:33 Levothyroxine Sodium (Synthroid) 50 mcg DAILY@06 PO 09/01/16 06:00 09/15/16 05:26 Pravastatin Sodium (Pravachol) 40 mg DAILY PO 09/01/16 09:00 09/15/16 08:13 Pregabalin (Lyrica) 150 mg BID PO 08/31/16 21:00 Hold 09/12/16 08:34 Primidone (Mysoline) 100 mg TID PO 08/31/16 18:00 09/15/16 08:13 Trazodone HCl (Desyrel) 100 mg HS PO 08/31/16 21:00 09/14/16 20:37 Heparin Sodium (Porcine) (Heparin Inj) 5,000 units Q8HR SQ 09/01/16 14:00 Hold 09/06/16 13:27 Alprazolam (Xanax) 0.5 mg Q12HR PRN PO ANXIETY 09/01/16 14:45 09/08/16 12:58 Miscellaneous Information Patient in critical care unit? Ass... [id number] XX 09/04/16 20:00 09/04/16 20:00 Morphine Sulfate (Morphine Inj) 2 mg Q4H PRN IV PAIN 1 TO 10 09/05/16 11:30 09/06/16 16:06 Carvedilol (Coreg) 6.25 mg Q12HR PO 09/06/16 09:00 09/15/16 08:12 Chlorhexidine Gluconate (Peridex 0.12% Liq) 15 ml BID@08,20 MT 09/06/16 20:00 09/15/16 08:00 Senna/Docusate Sodium (Shantelle-Colace) 2 tab DAILY PO 09/06/16 17:45 09/15/16 08:13 Lorazepam (Ativan Inj) 0.25 mg Q6H PRN IV PUSH ANXIETY 09/06/16 17:45 09/12/16 04:53 Hydralazine HCl (Apresoline Inj) 10 mg Q6H PRN IV SBP> OR = 160, DBP> OR = 100 09/09/16 03:15 09/09/16 04:10 Aspirin (Aspirin Chew) 81 mg DAILY PO 09/12/16 09:00 09/15/16 08:12 Hydralazine HCl (Apresoline) 50 mg Q8HR PO 09/12/16 08:00 09/14/16 15:39 Sertraline HCl 50 mg 50 mg DAILY PO 09/13/16 09:00 09/15/16 08:14 Propofol 100 ml @ 0 mls/hr TITRATE IV 09/12/16 12:45 09/15/16 08:32 Fentanyl Citrate (fentaNYL DRIP) 250 ml @ 0 mls/hr TITRATE IV 09/12/16 15:00 09/14/16 20:38 Ferrous Sulfate (Ferrous Sulfate Liq) 300 mg BID PO 09/12/16 21:00 09/15/16 08:12 Pantoprazole Sodium (Protonix Inj) 40 mg Q12H IV PUSH 09/13/16 18:00 09/15/16 05:25 Insulin Detemir (Levemir Inj) 14 units Q12HR SQ 09/14/16 09:00 09/15/16 08:19 Methylprednisolone Sodium Succinate (SoluMEDROL INJ) 40 mg DAILY IV 09/14/16 09:00 09/15/16 08:21 Insulin Human Regular (NovoLIN R SUPPLEMENTAL SCALE) 1 Q6H SQ 09/14/16 08:00 09/15/16 08:00 Objective Remarks GENERAL: Chronically ill appearing male intubated and sedated. SKIN: Warm and dry. Few ecchymoses to abdomen. HEAD: Normocephalic. EYES: No injection or drainage. NECK: Supple, trachea midline. CARDIOVASCULAR: +S1/S2 RESPIRATORY: Occasional rhonchi. Mechanically ventilated. GASTROINTESTINAL: Abdomen soft, non-tender, nondistended. EXTREMITIES: No cyanosis. NEUROLOGICAL: Per RN does not follow commands during sedation vacation. Assessment/Plan Problem List: (1) Thrombocytopenia Status: Acute Plan: --multifactorial d/t sepsis +/- medication effect (i.e. 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 --possibility of DIC --HIT positive--likely false positive, as TIGIST was negative. --Shabbir negative --LDH/haptoglobin both elevated --Abdominal u/s showed chronic liver disease + splenomegaly (2) Normocytic anemia Status: Acute Plan: --haptoglobin/LDH both elevated, which is not consistent with hemolysis --Shabbir negative --stool Hemoccult negative (3) Severe sepsis Status: Resolved Plan: --+pneumonia --on antibiotic (4) Aortic stenosis Status: Acute Plan: --Severe aortic stenosis with CHF --currently being managed by cardiology and CT surgery. Assessment 71y/o male admitted with NSTEMI, COPD exacerbation, and pneumonia. Hematology consulted for acute thrombocytopenia. history of COPD, hypertension, diabetes aortic stenosis Plan 1. TIGIST negative. HIT unlikely. 2. Fibrinogen OK. 3. OK to continue 81mg ASA for now. Will discontinue for platelets less than 40K. 4. Thrombocytopenia likely multifactorial. Will continue to monitor. Transfuse for platelets less than 20K. Attending Statement The exam, history, and the medical decision-making described in the above note were completed with the assistance of the mid-level provider. I reviewed and agree with the findings presented. I attest that I had a [id number] encounter with the patient on the same day, and personally performed and documented my assessment and findings in the medical record. Thrombocytopenia --chronic and also due to acute illness. HIT confirmatory test negative. check daily fibrinogen. transfuse to keep PLTs >20 unless bleeding. Problem Qualifiers (1) Aortic stenosis: Qualified Code: I35.0 - Aortic valve stenosis, unspecified etiology Dunia Hartman Sep 15, 2016 13:21 Cesar Vieyra MD Sep 15, 2016 23:35
[2016-09-15] MEDS: CEFTAROLINE INJ 400 MG in SODIUM CHLORIDE 0.9% INJ 100 ML IV SCH (15:00)
[2016-09-15] MEDS: fentaNYL DRIP 250 ML IV SCH (17:53)
--- NOTE | 2016-09-15 18:55 | HHI.PR ---
Subjective Remarks 71 YOWM with Resp insuf, COPD,Lung infilt On 6 LNC No fever at BS Pt intubated On AC 16,Fi02 70% Sedated Objective Vital Signs Vital Signs Date Time Temp Pulse Resp B/P Pulse Ox O2 Delivery O2 Flow Rate FiO2 09/15/16 18:00 66 09/15/16 16:27 95 55 09/15/16 16:00 70 09/15/16 16:00 98.5 70 18 115/54 09/15/16 16:00 94 Mechanical Ventilator 55 09/15/16 16:00 55 09/15/16 14:00 67 09/15/16 12:00 64 09/15/16 12:00 98.4 64 15 109/53 95 09/15/16 12:00 95 Mechanical Ventilator 55 09/15/16 12:00 55 09/15/16 10:00 66 09/15/16 09:04 96 55 09/15/16 08:00 70 09/15/16 08:00 95 Mechanical Ventilator 70 09/15/16 08:00 98.4 66 18 107/55 95 09/15/16 08:00 66 09/15/16 06:00 64 09/15/16 04:34 96 70 09/15/16 04:00 Mechanical Ventilator 70 09/15/16 04:00 97.8 65 20 109/52 96 09/15/16 04:00 70 09/15/16 04:00 65 09/15/16 02:00 63 09/15/16 01:52 95 70 09/15/16 00:00 70 09/15/16 00:00 65 09/15/16 00:00 Mechanical Ventilator 70 09/15/16 00:00 98.9 65 20 113/54 95 09/14/16 22:34 95 70 09/14/16 22:00 68 09/14/16 20:27 93 70 09/14/16 20:00 70 09/14/16 20:00 98.6 79 20 135/63 94 09/14/16 20:00 79 09/14/16 20:00 Mechanical Ventilator 70 I/O 09/14/16 09/14/16 09/14/16 09/15/16 09/15/16 09/15/16 07:00 15:00 23:00 07:00 15:00 23:00 Intake Total 1234 ml 675 ml 568 ml 448 ml 572 ml Output Total 650 ml 400 ml 650 ml 350 ml 950 ml Balance 584 ml 275 ml -82 ml 98 ml -378 ml IV Total 701 ml 390 ml 205 ml 162 ml 237 ml Tube Feeding 333 ml 285 ml 363 ml 286 ml 335 ml Other 200 ml Output Urine Total 650 ml 400 ml 650 ml 350 ml 950 ml # Bowel Movements 0 0 Result Diagram: 09/15/1642109/15/16421 Objective Remarks GENERAL: Obese WM, mild sob SKIN: Warm and dry. HEAD: Normocephalic. EYES: No scleral icterus. No injection or drainage. NECK: Supple, trachea midline. No JVD or lymphadenopathy. CARDIOVASCULAR: Regular rate and rhythm without murmurs, gallops, or rubs. RESPIRATORY: Breath sounds equal bilaterally. No accessory muscle use. GASTROINTESTINAL: Abdomen soft, non-tender, nondistended. MUSCULOSKELETAL: No cyanosis, or edema. BACK: Nontender without obvious deformity. No CVA tenderness. A/P Assessment and Plan Resp Failure, on Vent COPD Lung infilt DM Ch. Pain PLAN: Cont Abx IV Solumedrol Vent Support, AC16, Fi02 70% Aerosol nebs Monitor BS Amiodarone drip Monitor renal functions Kai Escobedo MD Sep 15, 2016 18:55
[2016-09-15] MEDS: traZODone HCL 100 MG TAB PO SCH (20:32)
[2016-09-16] VITALS (15 sets, daily range): BP systolic 95–132; BP diastolic 50–56; PULSE 63–80; RESP 20; TEMP 97.8–99.5; O2SAT 92–96
[2016-09-16] MEDS: INSULIN NovoLIN REGULAR SUPPLEMENTAL SCALE SQ SCH ×5 (03:13→21:39)
[2016-09-16] MEDS: CHLORHEXIDINE 0.12% (ORAL KIT) 15 ML CUP MT SCH ×3 (03:14→21:41)
[2016-09-16] MEDS: hydrALAZINE HCL 50 MG TAB PO SCH ×4 (03:14→13:20)
[2016-09-16] MEDS: CEFTAROLINE INJ 400 MG in SODIUM CHLORIDE 0.9% INJ 100 ML IV SCH (03:16)
[2016-09-16] MEDS: RESP: ALBUTEROL 2.5 MG/IPRATROPIUM 0.5 MG NEB (SCH) NEB ×2 (03:48→09:02)
[2016-09-16 04:42] LABS: AUTOMATED NEUTROPHIL # 6.7 TH/MM3 (1.8-7.7); BASOPHIL # 0.1 TH/MM3 (0-0.2); BASOPHIL % 0.7 % (0.0-2.0); EOSINOPHIL # 0.1 TH/MM3 (0-0.4); EOSINOPHIL % 0.8 % (0.0-4.0); HEMATOCRIT 26.8 % (39.0-51.0); LYMPH % 13.5 % (9.0-44.0); LYMPHOCYTE # 1.2 TH/MM3 (1.0-4.8); MEAN CELL VOLUME 82.6 FL (80.0-100.0); MEAN CORPUSCULAR HEMOGLOBIN 27.3 PG (27.0-34.0); MONO % 8.1 % (0.0-8.0); NEUT % 76.9 % (16.0-70.0); PLATELET COUNT 110 TH/MM3 (150-450); RED BLOOD COUNT 3.24 MIL/MM3 (4.50-5.90); RED CELL DISTRIBUTION WIDTH 16.5 % (11.6-17.2); WHITE BLOOD COUNT 8.8 TH/MM3 (4.0-11.0)
[2016-09-16 04:43] LABS: HEMO FLAGS AUTO DIFF
[2016-09-16 04:44] LABS: ANION GAP 8 MEQ/L (5-15); AST (GOT) 20 U/L (15-37); BICARBONATE 34.3 MEQ/L (21.0-32.0); BLOOD UREA NITROGEN 79 MG/DL (7-18); CHLORIDE 97 MEQ/L (98-107); GLOMERULAR FILTRATION RATE 50 ML/MIN (>89); POTASSIUM 4.5 MEQ/L (3.5-5.1); SODIUM (NA) 139 MEQ/L (136-145)
[2016-09-16 04:48] LABS: ALKALINE PHOSPHATASE 228 U/L (45-117); ALT (GPT) 22 U/L (12-78); TOTAL BILIRUBIN ADULT 0.3 MG/DL (0.2-1.0)
[2016-09-16] MEDS: PANTOPRAZOLE SODIUM 40 MG VIAL IV PUSH SCH ×2 (06:06→18:30)
[2016-09-16] MEDS: LEVOTHYROXINE SODIUM 50 MCG TAB PO SCH (06:07)
[2016-09-16 07:03] LABS: PLATELET ESTIMATE SMEAR LOW (NORMAL); PLATELET MORPHOLOGY NORMAL (NORMAL)
[2016-09-16 07:04] LABS: ACANTHOCYTES OCC (NORMAL); SCAN/DIFF AUTO DIFF CONFIRMED
--- NOTE | 2016-09-16 07:06 | RADRPT ---
EXAM DATE/TIME: 09/16/2016 05:38 [facility] COMPARISON: CHEST SINGLE AP, September 15, 2016, 4:42. INDICATIONS : Shortness of breath, possible pulmonary disease. MEDICAL HISTORY : None. SURGICAL HISTORY : None. ENCOUNTER: Subsequent ACUITY: 4 - 6 days PAIN SCORE: Non-responsive. LOCATION: Bilateral chest FINDINGS: A single view of the chest demonstrates persistent patchy airspace disease with interstitial prominen ce possibly representing some degree of vascular congestion/line overload. Findings are basically sta ble but there may be some improving left sided effusion with better definition of the costophrenic an gle. Heart size is borderline prominent. Life support tubes are stable in position.. CONCLUSION: 1. Stable patchy, bilateral airspace disease with interstitial prominence. 2. Improving left sided effusion. 3. Stable position of life support tubes. Delfino Sylvester MD on September 16, 2016 at 7:03 Board Certified Radiologist. This report was verified electronically.
[2016-09-16] MEDS: SERTRALINE HCL 50 MG TAB PO SCH (08:42)
[2016-09-16] MEDS: methylPREDNISolone SOD SUCC 40 MG/1 ML VIAL IV SCH (08:42)
[2016-09-16] MEDS: PRIMIDONE 50 MG TAB PO SCH ×3 (08:42→18:30)
[2016-09-16] MEDS: PRAVASTATIN SOD 40 MG TAB PO SCH (08:42)
[2016-09-16] MEDS: INSULIN DETEMIR 100 UNITS/ML VIAL SQ SCH ×2 (08:42→21:39)
[2016-09-16] MEDS: ASPIRIN 81 MG CHEW TAB PO SCH (08:43)
[2016-09-16] MEDS: CARVEDILOL 6.25 MG TAB PO SCH ×2 (08:43→21:39)
[2016-09-16] MEDS: BUMETANIDE INJ 1 MG/4 ML VIAL IV PUSH SCH ×3 (08:43→18:30)
[2016-09-16] MEDS: FERROUS SULFATE 300 MG /5ML UDC PO SCH ×2 (08:43→21:39)
[2016-09-16] MEDS: DOCUSATE SODIUM 50 MG/SENNA 8.6 MG TAB PO SCH (08:43)
[2016-09-16] MEDS: PROPOFOL 1000 MG/100 ML INJ 100 ML IV SCH ×3 (09:38→21:38)
[2016-09-16] MEDS: fentaNYL DRIP 250 ML IV SCH (09:38)
--- NOTE | 2016-09-16 10:59 | HHI.PR ---
Addendum to Inpatient Note Addendum Reason: Additional Documentation Additional Information Received call from regarding possible ARDS from infection. Procalcitonin repeated and again not suggestive of ARDS from infection. WBC ok, No fevers, secretions not s/o infection. Sputum cultures endotracheal : normal resp orly at this time. Will recommend completing course in am. Stop date entered. Will sign off please call back if any change in clinical condition or questions. Saba Henderson MD Sep 16, 2016 10:59
--- NOTE | 2016-09-16 11:20 | HHI.FPPN ---
Subjective Remarks Pt remains intubated and sedated. at bedside. On PRVC/AC 50% FIO2, 550 volume (Eko,Rupali U R1) Objective Vitals Vital Signs Date Time Temp Pulse Resp B/P Pulse Ox O2 Delivery O2 Flow Rate FiO2 09/16/16 09:04 93 50 09/16/16 08:00 77 09/16/16 08:00 Mechanical Ventilator 55 09/16/16 08:00 99.0 77 20 120/56 96 09/16/16 08:00 55 09/16/16 06:00 74 09/16/16 04:00 55 09/16/16 04:00 Mechanical Ventilator 55 09/16/16 04:00 96 55 09/16/16 04:00 70 09/16/16 04:00 97.8 70 20 132/55 96 09/16/16 02:00 65 09/16/16 00:11 96 55 09/16/16 00:00 55 09/16/16 00:00 Mechanical Ventilator 55 09/16/16 00:00 98.2 63 20 108/53 96 09/16/16 00:00 68 09/15/16 22:00 68 09/15/16 20:56 94 55 09/15/16 20:00 98.6 66 20 113/54 96 09/15/16 20:00 55 09/15/16 20:00 66 09/15/16 20:00 Mechanical Ventilator 55 09/15/16 18:00 66 09/15/16 16:27 95 55 09/15/16 16:00 70 09/15/16 16:00 98.5 70 18 115/54 09/15/16 16:00 94 Mechanical Ventilator 55 09/15/16 16:00 55 09/15/16 14:00 67 09/15/16 12:00 64 09/15/16 12:00 98.4 64 15 109/53 95 09/15/16 12:00 95 Mechanical Ventilator 55 09/15/16 12:00 55 I/O 09/15/16 09/15/16 09/15/16 09/16/16 09/16/16 09/16/16 07:00 15:00 23:00 07:00 15:00 23:00 Intake Total 448 ml 572 ml 860 ml 622 ml Output Total 350 ml 950 ml 850 ml 650 ml Balance 98 ml -378 ml 10 ml -28 ml IV Total 162 ml 237 ml 489 ml 322 ml Tube Feeding 286 ml 335 ml 371 ml 300 ml Output Urine Total 350 ml 950 ml 850 ml 650 ml (Rupali Eddy MD R1) Result Diagram: 09/16/1633709/16/16337 Objective Remarks Gen.: Lying in bed, intubated, sedated Head: Normocephalic. Atraumatic. EENT: Pupils equal round and reactive to light. Nose without drainage. Airway intact. Cardiovascular: Regular rate and rhythm. 2/6 systolic ejection murmur along left sternal border. Respiratory: CTAB bilaterally Abdomen: Soft, nontender, nondistended. No peritoneal signs. Musculoskeletal: No gross deformities. No edema. Skin: No obvious rashes or erythema. Neuro: Intubated, sedated (Rupali Eddy MD R1) A/P Assessment and Plan 71-year-old male who presented with a 5-day history of shortness of breath and nonproductive cough. ACS rule out positive for NSTEMI. Patient has a history of COPD and was admitted with sepsis with cardiology consultation for NSTEMI. Developed respiratory distress on 09/04 and was transferred to the ICU with critical care consult. Tolerated BiPAP vs nonrebreather vs nasal cannula for several days, but due to worsening respiratory distress, he was intubated on 09/12. Cardiology to perform left heart catheterization when clinically better. Pulmonology on board. Nephrology consulted for PHILIPPE. Hematology consulted due to thrombocytopenia. Discharge Planning Pending clinical improvement (Rupali Eddy MD R1) Attending Attestation Patient seen and examined Case reviewed and discussed Agree with plan of care as discussed with me and documented in the resident note. (She Harris MD) Problem List: (1) Respiratory distress Status: Acute Plan: Intubated and sedated in the ICU -Critical care managing - will follow recs -Decrease FiO2 as tolerated -Daily sedation vacation -Steroids per critical care -DuoNebs every 6 hours -I's and O's -Daily weights (2) NSTEMI (non-ST elevated myocardial infarction) Status: Acute Plan: -Patient with elevated troponins to 1.[address] elevations in V1 V3 on admission -Cardiology signed off - may reconsult after clinical improvement -Left heart catheter when clinically able to tolerate procedure -Continue medical management (3) Aortic stenosis Status: Acute Plan: -Cardiothoracic surgery consulted -Cardiology and cardiothoracic surgery to discuss plans going forward -Will need to optimize medical management prior to performing any procedures -Pulmonology consulted given high surgical risk- appreciate recommendations (4) Pneumonia Status: Acute Plan: -Strep pneumoniae in sputum culture -Ceftarolin 300 mg IV every 12 hours was restarted on 09/15 -Pt has been afebrile with no elevated WBC count -Procalcitonin wnl on 09/15 -Infectious disease has signed off - recommends discontinuation tomorrow am (5) CHF due to valvular disease Status: Acute Plan: Echo performed on 09/02 showed EF of 5055 percent. -Aortic valve with moderate to severe stenosis -Coreg 3.125 mg by mouth every 12 hours (6) PHILIPPE (acute kidney injury) Status: Acute Plan: Creatinine 1.41, trending down -Nephrology on board -Monitor I's and O's -Avoid nephrotoxins -Off Bumex drip -Increase intermittent Bumex to 2 mg IV TID (7) Thrombocytopenia Status: Acute Plan: Currently stable at 110, big increase from 53 on 09/15 -Transfuse for platelets less than 20K -Decreased aspirin to 81mg daily, discontinue for platelets less than 40K -Hematology consulted -Suspect due to DIC/Consumption--fibrinogen preserved -Heparin subcutaneous discontinued -HIT positive, but likely false positive, TIGIST wnl and result does not support HIT -Hepatitis panel negative -Abdominal ultrasound on 09/07 shows heterogeneous hepatic echo texture consistent with chronic liver disease, splenomegaly, mild to moderate ascites -Continue to monitor daily CBC (8) Diabetes Status: Chronic Plan: Patient's home regimen is NPH 25 units every morning and 50 units daily at bedtime -Intubated, on tube feeds -Currently on Levemir 14 units twice a day per critical care -Continue Medium SSI -Taper steroids -Adjust insulin regimen as needed (9) COPD exacerbation Status: Acute Plan: Patient with known COPD and [id number] history of smoking Albuterol every 2 hours when necessary DuoNeb nebs every 4 hours scheduled Solu-Medrol 40 mg every 12 hours (10) Hyponatremia Status: Acute Plan: -Pseudohyponatremia vs SIADH vs some element of both -Serum osmolality elevated at 304 -Uric acid within normal limits -Will follow with daily BMPs -Strict I's and O's (11) Hypertension Status: Chronic Plan: Continue Coreg. Hydralazine when necessary. Continue losartan (12) Anxiety and depression Status: Chronic Plan: -Continue home meds on adjusted regimen -Trazodone 100 mg by mouth daily - -Sertraline 100 mg by mouth daily - taper to 50mg -Buspirone 10mg BID - hold -Primidone 100mg PO BID - continue (13) BPH (benign prostatic hyperplasia) Status: Chronic Plan: -History of BPH -Patient states history of using Flomax but not on current list of medications -Will consider starting Flomax if patient has symptoms (14) Severe sepsis Status: Resolved Plan: Septic on admission Currently off antibiotics Repeat blood cultures negative to date Abx History: -Ceftarolin 600 mg every 12 hours IV, started on 09/10. DC 09/14 -Vancomycin 1250mg IV Q12h with pharmacy consult and Zosyn 3.375mg IV Q6h (dc ) -Azithromycin 500 mg by mouth every 24 hours started on 09/01. Dc'd on 09/07 (15) FEN/DVT PPX/GI PPX Status: Acute Plan: Fluids: per CC Electrolytes: Will monitor and replace as needed Nutrition: Tube feeds DVT Prophylaxis: Bilateral SCDs, heparin discontinued due to thrombocytopenia GI Prophylaxis: None currently (Rupali Eddy MD R1) Problem Qualifiers (1) Aortic stenosis: Qualified Code: I35.0 - Aortic valve stenosis, unspecified etiology (2) Pneumonia: Qualified Code: J18.9 - Pneumonia of both lungs due to infectious organism, unspecified part of lung (3) Diabetes: (4) Hypertension: Qualified Code: I10 - Essential hypertension Rupali Eddy MD R1 Sep 16, 2016 11:20 She Harris MD Sep 17, 2016 13:41
--- NOTE | 2016-09-16 13:29 | HHI.CCPN ---
Subjective Remarks/Hospital Course The patient is a 71-year-old male with past medical history significant for COPD, aortic stenosis, hypertension and diabetes who presented to the emergency department with progressive shortness of breath and nonproductive cough for last 5 days. He was diagnosed and admitted to service on with [id number] [place], COPD exacerbation and probable pneumonia. He had a previous heart catheterization in 2014, was told at that time he needed to have aortic valve replacement. He was started on IV antibiotics with Rocephin and azithromycin and also was placed on IV steroids and DuoNeb breathing treatment for probable COPD exacerbation. All the cultures so far negative, also negative for influenza A and B, negative for Streptococcus and Legionella antigen. Cardiology was consulted, and echo showed moderate to severe aortic stenosis. Cardiothoracic surgery was also consulted and is following, plan for cardiac catheterization this Tuesday. A Halicat was called today as the patient was increasingly lethargic with increased dyspnea and hypoxia. He desaturated to the 70% when RN attempted to move him. Chest x-ray showed bilateral pulmonary edema worsening compared to admission. He was moved to the ICU and critical care medicine was consulted. I evaluated the patient in ICU. He is tachypneic on 100% nonrebreather. Examination revealed bilateral crackles. 60 mg of IV Lasix stat given and patient was ordered to be placed on BiPAP at 06/16. BNP was 658 SUBJECT 09/05/16: Patient did not tolerate BiPAP overnight. Currently remains on partial nonrebreather. Urine output more than 6 L in 24 hours. He developed atrial flutter with RVR, was placed on esmolol which I have changed to Cardizem. Chest x-ray shows interval improvement in my review 09/06/16: Remains on pNRB. sputum cx with strep pneumo. Urine out put diminishing. 1L bolus given with adequate response. Bilateral lung infiltrate. Discussed with Dr. Dudley. Will hold off cath until Reps failure/ALI improves and renal failure improves 09.07 Patient is on BIPAP 06/16 with FIO2 65%. Afebrile. 09/08 Patient is off BIPAP on Bumex drip 2mg/hr with UO 7.6L in 24 hrs. Afebrile feeling better. Renal function improving with Cr 1.52 from 2.07. 09/09 Patient is on partial rebreather with good sats. Afebrile. Renal function improving with Cr: 1.09 from 1.52. Remains on Bumex drip down 0.5mg/hr. 09/10 Patient was placed on Amio drip yesterday . Afebrile. Off Bumex drip. 09/11 No acute events overnight. Remains on Amio drip. On partial rebreather. CT chest last night showed no PE. 09/12 No acute events overnight. Remains on partial rebreather, off Amio drip. Afebrile. 09/13 Patient was intubated yesterday for resp distress and hypoxemia. Sedated with Diprivan and Fentanyl. Afebrile. On PRVC/AC RR 18, TV 550, PEEP: 10, FIO2 60%. 09/14 Patient is sedated with Diprivan and Fentanyl. Off Bumex drip, afebrile. Cr 1.53 today from 1.41. 09/15: Remains sedated. FiO2 70% with PEEP of 10. CXR unchanged. Creat 1.57. CXR remains same with bilateral infiltrates Objective Vital Signs Date Time Temp Pulse Resp B/P Pulse Ox O2 Delivery O2 Flow Rate FiO2 09/16/16 09:04 93 50 09/16/16 08:00 77 09/16/16 08:00 Mechanical Ventilator 09/16/16 08:00 99.0 20 120/56 09/12/16 12:00 15.00 Intake and Output 09/15/16 09/15/16 09/16/16 08:00 16:00 00:00 Intake Total 448 ml 572 ml 860 ml Output Total 350 ml 950 ml 850 ml Balance 98 ml -378 ml 10 ml Result Diagram: 09/16/16 0338 09/16/16 0338 Other Results Microbiology Date/Time Procedure Status Source Growth 09/14/16 04:30 Gram Stain - Final Complete Sputum Endotracheal 09/14/16 04:30 Sputum Culture - Final Complete Sputum Endotracheal LIGHT GROWTH NORMAL RESPIRATORY [facility] Imaging Last Impressions Chest X-Ray 09/13/16 0000 Signed Impressions: Service Date/Time: Tuesday, September 13, 2016 07:57 - CONCLUSION: Diffuse bilateral airspace consolidation remains present but has improved since yesterday's examination. Frank Young MD Lower Extremity Ultrasound 09/11/16 0000 Signed Impressions: Service Date/Time: Sunday, September 11, 2016 12:30 - CONCLUSION: No DVT is identified within either lower extremity. Frank Young MD CT Angiography 09/10/16 0000 Signed Impressions: Service Date/Time: Sunday, September 11, 2016 01:05 - CONCLUSION: No evidence of pulmonary embolism. Frank Hardin MD Abdomen Ultrasound 09/07/16 0000 Signed Impressions: Service Date/Time: Wednesday, September 07, 2016 16:45 - CONCLUSION: Heterogeneous hepatic echotexture consistent with chronic liver disease. Splenomegaly Mild to moderate ascites Mildly thickened gallbladder wall without evidence of gallstones. No evidence of hydronephrosis. Isidro Oliver MD Upper Extremity Ultrasound 09/06/16 0000 Signed Impressions: Service Date/Time: Tuesday, September 06, 2016 20:43 - CONCLUSION: No evidence of DVT. Isidro Oliver MD Chest CT 09/05/16 0000 Signed Impressions: Service Date/Time: Monday, September 05, 2016 15:37 - CONCLUSION: 1. Cardiomegaly with diffuse ground glass densities and consolidation likely pulmonary edema and/or pneumonia. 2. Small bilateral pleural effusions. 3. Prominent lymphadenopathy in the mediastinum. Cameron Archer MD Objective Remarks Gen: 71-year-old male lying in bed intubated and sedated. Head: Normocephalic. Atraumatic. EENT: Pupils equal round and reactive to light. Cardiovascular: S1-S2 normal. Systolic murmur heard in the aortic area Respiratory: B/l equal air entry with few coarse BS. No crackles or wheezes Abdomen: Soft, nontender, nondistended. No peritoneal signs. Musculoskeletal: No gross deformities. No edema. Skin: No obvious rashes or erythema. Neuro: Sedated. Withdraws extremities to pain. Moves all extremities spontaneously on sedation hold A/P Assessment and Plan NEURO: -Monitor neuro status -On Diprivan and Fentanyl infusion for sedation and vent synchrony. Daily sedation vacation. RESP: Acute hypoxemic respiratory failure ARDS Pneumococcal pneumonia COPD exacerbation -On PRVC/AC RR 16, TV 550, PEEP:10, FIO2 70%., IT:0.9. Unchanged CXR- Reduce FiO2 to 55 after increasing PEEP to 12 -Continue with vent support keep sat >90% -Bronchodilators. Solu-Medrol 40mg IV daily -/ CTA chest last night showed no PE CV: Severe aortic stenosis CHF NSTEMI -Monitor HR and BP keep MAP>65mmHg -Continue aspirin, Coreg 6.25mg BID, Hydralazine 50mg Q8, on pravastatin. -Echo showed EF 50-55%, mod-severe -Cardiothoracic surgery and cardiology Dr. Dudley is following -LHC on hold due to resp failure and renal failure- discussed with Dr. Dudley. GI: -Elevated LFT's..trending down -On Glucerna 1.5@45ml/hr. -Protonix for GI prophylaxis -Monitor LFT's ( trending down) -US abdomen: Chronic liver disease. Splenomegaly Mild to moderate ascites Mildly thickened gallbladder wall without evidence of gallstones. No evidence of hydronephrosis. : Acute kidney injury. Hyponatremia. -Off Bumex drip. Cr increased 1.57 from1.53 , UO: 1400ml in 24 hrs -Monitor renal function, I/O's, avoid nephrotoxins. -Renal- Dr. Roa. Renal US: No hydronephrosis ID: Severe Sepsis Pneumococcal pneumonia -ID dcd Teflaro on 09/14/16. D/W Dr. Henderson. In my opinion patient has noncardiogenic pulmonary edema/ARDS -Watching off ABX per ID recommendation. (Received 5 days of Teflaro, but received Vanc prior to that) -Sputum culture positive for strep pneumo. Influenza negative -Recheck sputum cx 09/14 pending HEME: -Monitor CBC, CMP, coags. Hep PLT ab positive, will discuss TIGIST with Heme -Heme is following, plt [id number] today. If stable will start chemical DVT prophylaxis in 24 hours ENDO: Type 2 diabetes Hypothyroidism -Increase SSI high scale for glycemic control. Levemir 14u Q12, taper steroids -Continue Synthroid 50 mcg daily. TSH: 0.373 PROPH: -Bilateral lower extremity SCDs. Protonix for GI prophylaxis. Heparin SQ on hold for thrombocytopenia (plt count [id number] today. If stable will start chemical DVT prophylaxis in 24 hours LINES: -Utilize peripheral IVs, CCT 30 mins Minnie Marie MD Sep 16, 2016 13:29
--- NOTE | 2016-09-16 14:49 | HHI.CCPN ---
Subjective Remarks/Hospital Course The patient is a 71-year-old male with past medical history significant for COPD, aortic stenosis, hypertension and diabetes who presented to the emergency department with progressive shortness of breath and nonproductive cough for last 5 days. He was diagnosed and admitted to service on with [id number] VT, COPD exacerbation and probable pneumonia. He had a previous heart catheterization in 2014, was told at that time he needed to have aortic valve replacement. He was started on IV antibiotics with Rocephin and azithromycin and also was placed on IV steroids and DuoNeb breathing treatment for probable COPD exacerbation. All the cultures so far negative, also negative for influenza A and B, negative for Streptococcus and Legionella antigen. Cardiology was consulted, and echo showed moderate to severe aortic stenosis. Cardiothoracic surgery was also consulted and is following, plan for cardiac catheterization this Tuesday. A Halicat was called today as the patient was increasingly lethargic with increased dyspnea and hypoxia. He desaturated to the 70% when RN attempted to move him. Chest x-ray showed bilateral pulmonary edema worsening compared to admission. He was moved to the ICU and critical care medicine was consulted. I evaluated the patient in ICU. He is tachypneic on 100% nonrebreather. Examination revealed bilateral crackles. 60 mg of IV Lasix stat given and patient was ordered to be placed on BiPAP at 06/16. BNP was 658 SUBJECT 09/05/16: Patient did not tolerate BiPAP overnight. Currently remains on partial nonrebreather. Urine output more than 6 L in 24 hours. He developed atrial flutter with RVR, was placed on esmolol which I have changed to Cardizem. Chest x-ray shows interval improvement in my review 09/06/16: Remains on pNRB. sputum cx with strep pneumo. Urine out put diminishing. 1L bolus given with adequate response. Bilateral lung infiltrate. Discussed with Dr. Dudley. Will hold off cath until Reps failure/ALI improves and renal failure improves 09.07 Patient is on BIPAP 06/16 with FIO2 65%. Afebrile. 09/08 Patient is off BIPAP on Bumex drip 2mg/hr with UO 7.6L in 24 hrs. Afebrile feeling better. Renal function improving with Cr 1.52 from 2.07. 09/09 Patient is on partial rebreather with good sats. Afebrile. Renal function improving with Cr: 1.09 from 1.52. Remains on Bumex drip down 0.5mg/hr. 09/10 Patient was placed on Amio drip yesterday . Afebrile. Off Bumex drip. 09/11 No acute events overnight. Remains on Amio drip. On partial rebreather. CT chest last night showed no PE. 09/12 No acute events overnight. Remains on partial rebreather, off Amio drip. Afebrile. 09/13 Patient was intubated yesterday for resp distress and hypoxemia. Sedated with Diprivan and Fentanyl. Afebrile. On PRVC/AC RR 18, TV 550, PEEP: 10, FIO2 60%. 09/14 Patient is sedated with Diprivan and Fentanyl. Off Bumex drip, afebrile. Cr 1.53 today from 1.41. 09/15: Remains sedated. FiO2 70% with PEEP of 10. CXR unchanged. Creat 1.57. CXR remains same with bilateral infiltrates 09/16: Remains intubated sedated. FiO2 at 50% with a PEEP of 12. Chest x-ray unchanged to slightly improved. Urine output 2.4 L in 24 hours after starting Bumex 2 mg IV every 12 yesterday by nephrology. Creatinine stable to slightly improved Objective Vital Signs Date Time Temp Pulse Resp B/P Pulse Ox O2 Delivery O2 Flow Rate FiO2 09/16/16 13:29 92 50 09/16/16 08:00 77 09/16/16 08:00 Mechanical Ventilator 09/16/16 08:00 99.0 20 120/56 09/12/16 12:00 15.00 Intake and Output 09/15/16 09/15/16 09/16/16 08:00 16:00 00:00 Intake Total 448 ml 572 ml 860 ml Output Total 350 ml 950 ml 850 ml Balance 98 ml -378 ml 10 ml Result Diagram: 09/16/16 0338 09/16/16 0338 Other Results Microbiology Date/Time Procedure Status Source Growth 09/14/16 04:30 Gram Stain - Final Complete Sputum Endotracheal 09/14/16 04:30 Sputum Culture - Final Complete Sputum Endotracheal LIGHT GROWTH NORMAL RESPIRATORY FREDY Imaging Last Impressions Chest X-Ray 09/13/16 Signed Impressions: Service Date/Time: Tuesday, September 13, 2016 07:57 - CONCLUSION: Diffuse bilateral airspace consolidation remains present but has improved since yesterday's examination. Frank Young MD Lower Extremity Ultrasound 09/11/16 0000 Signed Impressions: Service Date/Time: Sunday, September 11, 2016 12:30 - CONCLUSION: No DVT is identified within either lower extremity. Frank Young MD CT Angiography 09/10/16 0000 Signed Impressions: Service Date/Time: Sunday, September 11, 2016 01:05 - CONCLUSION: No evidence of pulmonary embolism. Frank Hardin MD Abdomen Ultrasound 09/07/16 0000 Signed Impressions: Service Date/Time: Wednesday, September 07, 2016 16:45 - CONCLUSION: Heterogeneous hepatic echotexture consistent with chronic liver disease. Splenomegaly Mild to moderate ascites Mildly thickened gallbladder wall without evidence of gallstones. No evidence of hydronephrosis. Isidro Oliver MD Upper Extremity Ultrasound 09/06/16 0000 Signed Impressions: Service Date/Time: Tuesday, September 06, 2016 20:43 - CONCLUSION: No evidence of DVT. Isidro Oliver MD Chest CT 09/05/16 0000 Signed Impressions: Service Date/Time: Monday, September 05, 2016 15:37 - CONCLUSION: 1. Cardiomegaly with diffuse ground glass densities and consolidation likely pulmonary edema and/or pneumonia. 2. Small bilateral pleural effusions. 3. Prominent lymphadenopathy in the mediastinum. Cameron Archer MD Objective Remarks Gen: 71-year-old male lying in bed intubated and sedated. Head: Normocephalic. Atraumatic. EENT: Pupils equal round and reactive to light. Cardiovascular: S1-S2 normal. Systolic murmur heard in the aortic area Respiratory: B/l equal air entry with few coarse BS. Abdomen: Soft, nontender, nondistended. No peritoneal signs. Musculoskeletal: No gross deformities. No edema. Skin: No obvious rashes or erythema. Neuro: Sedated. Withdraws extremities to pain. Moves all extremities spontaneously on sedation lightening Urinary Catheter: Yes Assessment to: Continue A/P Assessment and Plan NEURO: -Monitor neuro status -On Diprivan and Fentanyl infusion for sedation and vent synchrony. Daily sedation vacation. RESP: Acute hypoxemic respiratory failure ARDS Pneumococcal pneumonia COPD exacerbation -On PRVC/AC RR 16, TV 550, PEEP:12, FIO2 50%., IT:0.9. -Continue with vent support keep sat >90% -Bronchodilators. Solu-Medrol 40mg IV daily -09/10 CTA chest last night showed no PE CV: Severe aortic stenosis CHF NSTEMI -Monitor HR and BP keep MAP>65mmHg -Continue aspirin, Coreg 6.25mg BID, Hydralazine 50mg Q8, on pravastatin. -Echo showed EF 50-55%, mod-severe -Cardiothoracic surgery and cardiology Dr. Dudley is following -C on hold due to resp failure and renal failure- discussed with Dr. Dudley. GI: -Elevated LFT's..trending down -On Glucerna 1.5@45ml/hr. -Protonix for GI prophylaxis -Monitor LFT's ( trending down) -US abdomen: Chronic liver disease. Splenomegaly Mild to moderate ascites Mildly thickened gallbladder wall without evidence of gallstones. No evidence of hydronephrosis. : Acute kidney injury. Hyponatremia. -Bumex 2 MG IV q12 started 09/15 by nephrology. Cr improved to 1.41 from 1.53 , UO : 2400ml in 24 hrs -Monitor renal function, I/O's, avoid nephrotoxins. -Renal- Dr. Roa. Renal US: No hydronephrosis ID: Severe Sepsis Pneumococcal pneumonia -ID dcd Teflaro on 09/14/16. D/W Dr. Henderson.Restarted 09/15 -continue until tomorrow to complete 11 days total ABX coverage -Use Levaquin if needed form 09/17 after Teflaro DCd. Evaluate clonically -Sputum culture positive for strep pneumo. Influenza negative -Recheck sputum cx 09/14 neg to date HEME: -Monitor CBC, CMP, coags. Hep PLT ab positive, TIGIST neg per Heme -Heme is following ENDO: Type 2 diabetes Hypothyroidism -Increase SSI high scale for glycemic control. Levemir 14u Q12, taper steroids -Continue Synthroid 50 mcg daily. TSH: 0.373 PROPH: -Bilateral lower extremity SCDs. Protonix for GI prophylaxis. Heparin SQ on hold for thrombocytopenia LINES: -Utilize peripheral IVs, CCT 30 mins Updated at bedside 09/16/16 Minnie Marie MD Sep 16, 2016 14:49
--- NOTE | 2016-09-16 17:19 | HHI.PR ---
Subjective Remarks 71 YOWM with Resp insuf, COPD,Lung infilt No fever at BS Pt intubated On AC 16,Fi02 570% Sedated Objective Vital Signs Vital Signs Date Time Temp Pulse Resp B/P Pulse Ox O2 Delivery O2 Flow Rate FiO2 09/16/16 16:00 55 09/16/16 16:00 74 09/16/16 16:00 Mechanical Ventilator 50 09/16/16 15:49 93 50 09/16/16 13:29 92 50 09/16/16 12:00 55 09/16/16 12:00 80 09/16/16 12:00 Mechanical Ventilator 60 09/16/16 09:04 93 50 09/16/16 08:00 77 09/16/16 08:00 Mechanical Ventilator 55 09/16/16 08:00 99.0 77 20 120/56 96 09/16/16 08:00 55 09/16/16 06:00 74 09/16/16 04:00 55 09/16/16 04:00 Mechanical Ventilator 55 09/16/16 04:00 96 55 09/16/16 04:00 70 09/16/16 04:00 97.8 70 20 132/55 96 09/16/16 02:00 65 09/16/16 00:11 96 55 09/16/16 00:00 55 09/16/16 00:00 Mechanical Ventilator 55 09/16/16 00:00 98.2 63 20 108/53 96 09/16/16 00:00 68 09/15/16 22:00 68 09/15/16 20:56 94 55 09/15/16 20:00 98.6 66 20 113/54 96 09/15/16 20:00 55 09/15/16 20:00 66 09/15/16 20:00 Mechanical Ventilator 55 09/15/16 18:00 66 I/O 09/15/16 09/15/16 09/15/16 09/16/16 09/16/16 09/16/16 07:00 15:00 23:00 07:00 15:00 23:00 Intake Total 448 ml 572 ml 860 ml 622 ml 685 ml Output Total 350 ml 950 ml 850 ml 650 ml 1000 ml Balance 98 ml -378 ml 10 ml -28 ml -315 ml IV Total 162 ml 237 ml 489 ml 322 ml 270 ml Tube Feeding 286 ml 335 ml 371 ml 300 ml 415 ml Output Urine Total 350 ml 950 ml 850 ml 650 ml 1000 ml # Bowel Movements 0 Result Diagram: 09/16/168 09/16/16337 Objective Remarks GENERAL: Obese WM, mild sob SKIN: Warm and dry. HEAD: Normocephalic. EYES: No scleral icterus. No injection or drainage. NECK: Supple, trachea midline. No JVD or lymphadenopathy. CARDIOVASCULAR: Regular rate and rhythm without murmurs, gallops, or rubs. RESPIRATORY: Breath sounds equal bilaterally. No accessory muscle use. GASTROINTESTINAL: Abdomen soft, non-tender, nondistended. MUSCULOSKELETAL: No cyanosis, or edema. BACK: Nontender without obvious deformity. No CVA tenderness. A/P Assessment and Plan Resp Failure, on Vent COPD Lung infilt DM Ch. Pain PLAN: Cont Abx IV Solumedrol Vent Support, AC16, Fi02 50% Aerosol nebs Monitor BS Monitor renal functions Kai Escobedo MD Sep 16, 2016 17:19
[2016-09-16] MEDS: traZODone HCL 100 MG TAB PO SCH (21:39)
--- NOTE | 2016-09-16 23:02 | PD.ONC.PN ---
Subjective Subjective Remarks intubated and sedated f/u for thrombocytopenia no bleeding Objective Data Date Time Temp Pulse Resp B/P Pulse Ox O2 Delivery O2 Flow Rate FiO2 09/16/16 22:05 92 50 09/16/16 20:33 93 50 09/16/16 16:00 55 09/16/16 16:00 99.5 80 20 110/56 09/16/16 16:00 74 09/16/16 16:00 Mechanical Ventilator 50 09/16/16 15:49 93 50 09/16/16 13:29 92 50 09/16/16 12:00 55 09/16/16 12:00 80 09/16/16 12:00 Mechanical Ventilator 60 09/16/16 12:00 99.5 74 20 95/54 09/16/16 09:04 93 50 09/16/16 08:00 77 09/16/16 08:00 Mechanical Ventilator 55 09/16/16 08:00 99.0 77 20 120/56 96 09/16/16 08:00 55 09/16/16 06:00 74 09/16/16 04:00 55 09/16/16 04:00 Mechanical Ventilator 55 09/16/16 04:00 96 55 09/16/16 04:00 70 09/16/16 04:00 97.8 70 20 132/55 96 09/16/16 02:00 65 09/16/16 00:11 96 55 09/16/16 00:00 55 09/16/16 00:00 Mechanical Ventilator 55 09/16/16 00:00 98.2 63 20 108/53 96 09/16/16 00:00 68 09/16/16 09/16/16 09/16/16 07:00 15:00 23:00 Intake Total 622 ml 685 ml Output Total 650 ml 1000 ml Balance -28 ml -315 ml Result Diagram: 09/16/16 0338 09/16/16 0338 Laboratory Results Laboratory Tests Test 09/16/16 03:38 White Blood Count 8.8 TH/MM3 Red Blood Count 3.24 MIL/MM3 Hemoglobin 8.9 GM/DL Hematocrit 26.8 % Mean Corpuscular Volume 82.6 FL Mean Corpuscular Hemoglobin 27.3 PG Mean Corpuscular Hemoglobin 33.0 % Concent Red Cell Distribution Width 16.5 % Platelet Count 110 TH/MM3 Mean Platelet Volume 10.4 FL Neutrophils (%) (Auto) 76.9 % Lymphocytes (%) (Auto) 13.5 % Monocytes (%) (Auto) 8.1 % Eosinophils (%) (Auto) 0.8 % Basophils (%) (Auto) 0.7 % Neutrophils # (Auto) 6.7 TH/MM3 Lymphocytes # (Auto) 1.2 TH/MM3 Monocytes # (Auto) 0.7 TH/MM3 Eosinophils # (Auto) 0.1 TH/MM3 Basophils # (Auto) 0.1 TH/MM3 CBC Comment AUTO DIFF Differential Comment AUTO DIFF CONFIRMED Platelet Estimate LOW Platelet Morphology Comment NORMAL Acanthocytes OCC Fibrinogen 482 mg/dL Sodium Level 139 MEQ/L Potassium Level 4.5 MEQ/L Chloride Level 97 MEQ/L Carbon Dioxide Level 34.3 MEQ/L Anion Gap 8 MEQ/L Blood Urea Nitrogen 79 MG/DL Creatinine 1.41 MG/DL Estimat Glomerular Filtration 50 ML/MIN Rate Random Glucose 219 MG/DL Calcium Level 8.7 MG/DL Total Bilirubin 0.3 MG/DL Aspartate Amino Transf 20 U/L (AST/SGOT) Alanine Aminotransferase 22 U/L (ALT/SGPT) Alkaline Phosphatase 228 U/L Total Protein 5.7 GM/DL Albumin 2.2 GM/DL Culture Results Microbiology Date/Time Procedure Status Source Growth 09/14/16 04:30 Gram Stain - Final Complete Sputum Endotracheal 09/14/16 04:30 Sputum Culture - Final Complete Sputum Endotracheal LIGHT GROWTH NORMAL RESPIRATORY FREDY Imaging Studies Last 24 hours Impressions Chest X-Ray 09/16/16 0600 Signed Impressions: Service Date/Time: September 05:38 - CONCLUSION: 1. Stable patchy, bilateral airspace disease with interstitial prominence. 2. Improving left sided effusion. 3. Stable position of life support tubes. Delfino Sylvester MD Administered Medications Medications (Trade) Dose Ordered Sig/Dev Route PRN Reason Start Time Stop Time Status Last Admin Dose Admin IV Flush (NS Flush) 2 ml UNSCH PRN IVF FLUSH AFTER USING IV ACCESS 08/31/16 11:15 09/15/16 13:00 Buspirone HCl (Buspar) 10 mg BID PO 08/31/16 21:00 Hold 09/12/16 08:33 Levothyroxine Sodium (Synthroid) 50 mcg DAILY@06 PO 09/01/16 06:00 3/9/17 06:07 Pravastatin Sodium (Pravachol) 40 mg DAILY PO 09/01/16 09:00 09/16/16 08:42 Pregabalin (Lyrica) 150 mg BID PO 08/31/16 21:00 Hold 09/12/16 08:34 Primidone (Mysoline) 100 mg TID PO 08/31/16 18:00 09/16/16 18:30 Trazodone HCl (Desyrel) 100 mg HS PO 08/31/16 21:00 09/16/16 21:39 Heparin Sodium (Porcine) (Heparin Inj) 5,000 units Q8HR SQ 09/01/16 14:00 Hold 09/06/16 13:27 Alprazolam (Xanax) 0.5 mg Q12HR PRN PO ANXIETY 09/01/16 14:45 09/08/16 12:58 Miscellaneous Information Patient in critical care unit? Ass... [id number] XX 09/04/16 20:00 09/04/16 20:00 Morphine Sulfate (Morphine Inj) 2 mg Q4H PRN IV PAIN 1 TO 10 09/05/16 11:30 09/06/16 16:06 Carvedilol (Coreg) 6.25 mg Q12HR PO 09/06/16 09:00 09/16/16 21:39 Chlorhexidine Gluconate (Peridex 0.12% Liq) 15 ml BID@08,20 MT 09/06/16 20:00 09/16/16 21:41 Senna/Docusate Sodium (Shantelle-Colace) 2 tab DAILY PO 09/06/16 17:45 09/16/16 08:43 Lorazepam (Ativan Inj) 0.25 mg Q6H PRN IV PUSH ANXIETY 09/06/16 17:45 09/12/16 04:53 Hydralazine HCl (Apresoline Inj) 10 mg Q6H PRN IV SBP> OR = 160, DBP> OR = 100 09/09/16 03:15 09/09/16 04:10 Aspirin (Aspirin Chew) 81 mg DAILY PO 09/12/16 09:00 09/16/16 08:43 Hydralazine HCl (Apresoline) 50 mg Q8HR PO 09/12/16 08:00 09/16/16 06:07 Sertraline HCl 50 mg 50 mg DAILY PO 09/13/16 09:00 09/16/16 08:42 Propofol 100 ml @ 0 mls/hr TITRATE IV 09/12/16 12:45 09/16/16 21:38 Fentanyl Citrate (fentaNYL DRIP) 250 ml @ 0 mls/hr TITRATE IV 09/12/16 15:00 09/16/16 09:38 Ferrous Sulfate (Ferrous Sulfate Liq) 300 mg BID PO 09/12/16 21:00 09/16/16 21:39 Pantoprazole Sodium (Protonix Inj) 40 mg Q12H IV PUSH 09/13/16 18:00 09/16/16 18:30 Insulin Detemir (Levemir Inj) 14 units Q12HR SQ 09/14/16 09:00 09/16/16 21:39 Methylprednisolone Sodium Succinate (SoluMEDROL INJ) 40 mg DAILY IV 09/14/16 09:00 09/16/16 08:42 Insulin Human Regular (NovoLIN R SUPPLEMENTAL SCALE) 1 Q6H SQ 09/14/16 08:00 09/16/16 21:39 Bumetanide (Bumex Inj) 2 mg TID IV PUSH 09/15/16 13:00 09/16/16 18:30 Objective Remarks GENERAL: acutely ill. intubated SKIN: Warm and dry. NECK: Supple, trachea midline. No JVD or lymphadenopathy. LYMPHATIC: No adenopathy. CARDIOVASCULAR: Regular rate and rhythm without murmurs. RESPIRATORY: Breath sounds equal bilaterally. GASTROINTESTINAL: Abdomen soft, non-tender, nondistended. bowel sounds decreased EXTREMITIES: No cyanosis, or edema. Assessment/Plan Problem List: (1) Thrombocytopenia Status: Acute Plan: --multifactorial d/t sepsis +/- medication effect (i.e. 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 --possibility of DIC --HIT positive--likely false positive, as TIGIST was negative. --Shabbir negative --LDH/haptoglobin both elevated --Abdominal u/s showed chronic liver disease + splenomegaly (2) Normocytic anemia Status: Acute Plan: --haptoglobin/LDH both elevated, which is not consistent with hemolysis --Shabbir negative --stool Hemoccult negative (3) Severe sepsis Status: Resolved Plan: --+pneumonia --on antibiotic (4) Aortic stenosis Status: Acute Plan: --Severe aortic stenosis with CHF --currently being managed by cardiology and CT surgery. Assessment 71y/o male admitted with NSTEMI, COPD exacerbation, and pneumonia. Hematology consulted for acute thrombocytopenia. history of COPD, hypertension, diabetes aortic stenosis Plan ---platelets up to 110 ---fibrinogen preserved --daily fibrinogen ---continue supportive care Problem Qualifiers (1) Aortic stenosis: Qualified Code: I35.0 - Aortic valve stenosis, unspecified etiology Cesar Vieyra MD Sep 16, 2016 23:02
[2016-09-17] VITALS (17 sets, daily range): BP systolic 101–115; BP diastolic 53–58; PULSE 71–95; RESP 20–22; TEMP 98.2–99.5; O2SAT 90–96
[2016-09-17] MEDS: INSULIN NovoLIN REGULAR SUPPLEMENTAL SCALE SQ SCH ×4 (02:00→19:26)
[2016-09-17] MEDS: fentaNYL DRIP 250 ML IV SCH ×2 (03:46→16:57)
[2016-09-17] MEDS: PROPOFOL 1000 MG/100 ML INJ 100 ML IV SCH ×4 (03:46→19:13)
[2016-09-17] MEDS: LEVOTHYROXINE SODIUM 50 MCG TAB PO SCH (06:21)
[2016-09-17] MEDS: PANTOPRAZOLE SODIUM 40 MG VIAL IV PUSH SCH ×2 (06:21→16:56)
[2016-09-17] MEDS: hydrALAZINE HCL 50 MG TAB PO SCH ×3 (06:21→22:00)
[2016-09-17] MEDS: RESP: ALBUTEROL 2.5 MG/3 ML NEB (PRN) NEB ×2 (08:19→15:51)
--- NOTE | 2016-09-17 08:25 | HHI.CCPN ---
Subjective Remarks/Hospital Course The patient is a 71-year-old male with past medical history significant for COPD, aortic stenosis, hypertension and diabetes who presented to the emergency department with progressive shortness of breath and nonproductive cough for last 5 days. He was diagnosed and admitted to service on with [id number] MD, COPD exacerbation and probable pneumonia. He had a previous heart catheterization in 2014, was told at that time he needed to have aortic valve replacement. He was started on IV antibiotics with Rocephin and azithromycin and also was placed on IV steroids and DuoNeb breathing treatment for probable COPD exacerbation. All the cultures so far negative, also negative for influenza A and B, negative for Streptococcus and Legionella antigen. Cardiology was consulted, and echo showed moderate to severe aortic stenosis. Cardiothoracic surgery was also consulted and is following, plan for cardiac catheterization this Tuesday. A Halicat was called today as the patient was increasingly lethargic with increased dyspnea and hypoxia. He desaturated to the 70% when RN attempted to move him. Chest x-ray showed bilateral pulmonary edema worsening compared to admission. He was moved to the ICU and critical care medicine was consulted. I evaluated the patient in ICU. He is tachypneic on 100% nonrebreather. Examination revealed bilateral crackles. 60 mg of IV Lasix stat given and patient was ordered to be placed on BiPAP at 06/16. BNP was 658 SUBJECT 09/05/16: Patient did not tolerate BiPAP overnight. Currently remains on partial nonrebreather. Urine output more than 6 L in 24 hours. He developed atrial flutter with RVR, was placed on esmolol which I have changed to Cardizem. Chest x-ray shows interval improvement in my review 09/06/16: Remains on pNRB. sputum cx with strep pneumo. Urine out put diminishing. 1L bolus given with adequate response. Bilateral lung infiltrate. Discussed with Dr. Dudley. Will hold off cath until Reps failure/ALI improves and renal failure improves 09.07 Patient is on BIPAP 06/16 with FIO2 65%. Afebrile. 09/08 Patient is off BIPAP on Bumex drip 2mg/hr with UO 7.6L in 24 hrs. Afebrile feeling better. Renal function improving with Cr 1.52 from 2.07. 09/09 Patient is on partial rebreather with good sats. Afebrile. Renal function improving with Cr: 1.09 from 1.52. Remains on Bumex drip down 0.5mg/hr. 09/10 Patient was placed on Amio drip yesterday . Afebrile. Off Bumex drip. 09/11 No acute events overnight. Remains on Amio drip. On partial rebreather. CT chest last night showed no PE. 09/12 No acute events overnight. Remains on partial rebreather, off Amio drip. Afebrile. 09/13 Patient was intubated yesterday for resp distress and hypoxemia. Sedated with Diprivan and Fentanyl. Afebrile. On PRVC/AC RR 18, TV 550, PEEP: 10, FIO2 60%. 09/14 Patient is sedated with Diprivan and Fentanyl. Off Bumex drip, afebrile. Cr 1.53 today from 1.41. 09/15: Remains sedated. FiO2 70% with PEEP of 10. CXR unchanged. Creat 1.57. CXR remains same with bilateral infiltrates 09/16: Remains intubated sedated. FiO2 at 50% with a PEEP of 12. Chest x-ray unchanged to slightly improved. Urine output 2.4 L in 24 hours after starting Bumex 2 mg IV every 12 yesterday by nephrology. Creatinine stable to slightly improved 09/17 Patient is sedated with Diprivan/Fentanyl and intubated. On PRVC/AC RR 20 , TV 550, IT:0.9, PEEP:12, FIO2 50%. Afebrile. Objective Vital Signs Date Time Temp Pulse Resp B/P Pulse Ox O2 Delivery O2 Flow Rate FiO2 09/17/16 06:00 74 09/17/16 04:10 94 50 09/17/16 04:00 99.3 22 115/58 09/17/16 04:00 Mechanical Ventilator Intake and Output 09/16/16 09/16/16 09/17/16 08:00 16:00 00:00 Intake Total 622 ml 685 ml 485 ml Output Total 650 ml 1000 ml 800 ml Balance -28 ml -315 ml -315 ml Result Diagram: 09/16/16 0338 09/16/16 0338 Imaging Last Impressions Chest X-Ray 09/16/16 0600 Signed Impressions: Service Date/Time: September 05:38 - CONCLUSION: 1. Stable patchy, bilateral airspace disease with interstitial prominence. 2. Improving left sided effusion. 3. Stable position of life support tubes. Delfino Sylvester MD Lower Extremity Ultrasound 09/11/16 0000 Signed Impressions: Service Date/Time: Sunday, September 11, 2016 12:30 - CONCLUSION: No DVT is identified within either lower extremity. Frank Young MD CT Angiography 09/10/16 0000 Signed Impressions: Service Date/Time: Sunday, September 11, 2016 01:05 - CONCLUSION: No evidence of pulmonary embolism. Frank Hardin MD Abdomen Ultrasound 09/07/16 0000 Signed Impressions: Service Date/Time: Wednesday, September 07, 2016 16:45 - CONCLUSION: Heterogeneous hepatic echotexture consistent with chronic liver disease. Splenomegaly Mild to moderate ascites Mildly thickened gallbladder wall without evidence of gallstones. No evidence of hydronephrosis. Isidro Oliver MD Upper Extremity Ultrasound 09/06/16 0000 Signed Impressions: Service Date/Time: Tuesday, September 06, 2016 20:43 - CONCLUSION: No evidence of DVT. Isidro Oliver MD Chest CT 09/05/16 0000 Signed Impressions: Service Date/Time: Monday, September 05, 2016 15:37 - CONCLUSION: 1. Cardiomegaly with diffuse ground glass densities and consolidation likely pulmonary edema and/or pneumonia. 2. Small bilateral pleural effusions. 3. Prominent lymphadenopathy in the mediastinum. Cameron Archer MD Objective Remarks Gen: 71-year-old male lying in bed intubated and sedated. Head: Normocephalic. Atraumatic. EENT: Pupils equal round and reactive to light. Cardiovascular: S1-S2 normal. Systolic murmur heard in the aortic area Respiratory: B/l equal air entry with few coarse BS. Abdomen: Soft, nontender, nondistended. No peritoneal signs. Musculoskeletal: No gross deformities. No edema. Skin: No obvious rashes or erythema. Neuro: Sedated. Withdraws extremities to pain. Moves all extremities spontaneously on sedation lightening A/P Assessment and Plan NEURO: -Monitor neuro status -On Diprivan and Fentanyl infusion for sedation and vent synchrony. Daily sedation vacation. RESP: Acute hypoxemic respiratory failure ARDS Pneumococcal pneumonia COPD exacerbation -On PRVC/AC RR 16, TV 550, PEEP:10, FIO2 70%., IT:0.9. Unchanged CXR- Reduce FiO2 to 55 after increasing PEEP to 12 -Continue with vent support keep sat >90% -Bronchodilators. Solu-Medrol 40mg IV daily -3/3 CTA chest last night showed no PE CV: Severe aortic stenosis CHF NSTEMI -Monitor HR and BP keep MAP>65mmHg -Continue aspirin, Coreg 6.25mg BID, Hydralazine 50mg Q8, on pravastatin. -Echo showed EF 50-55%, mod-severe -Cardiothoracic surgery and cardiology Dr. Dudley is following -C on hold due to resp failure and renal failure- discussed with Dr. Dudley. GI: -Elevated LFT's..trending down -On Glucerna 1.5@45ml/hr. -Protonix for GI prophylaxis -Monitor LFT's ( trending down) -US abdomen: Chronic liver disease. Splenomegaly Mild to moderate ascites Mildly thickened gallbladder wall without evidence of gallstones. No evidence of hydronephrosis. : Acute kidney injury. Hyponatremia.. resolved -Monitor renal function, I/O's, avoid nephrotoxins. -Renal- Dr. Roa. Renal US: No hydronephrosis -On Bumex 2mg BID -Follow up on BMP today ID: Severe Sepsis Pneumococcal pneumonia -Off abx per ID -Sputum culture positive for strep pneumo. Influenza negative -Recheck sputum cx 09/14 normal Ritika HEME: -Monitor CBC, CMP, coags. Hep PLT ab positive, Heme is following ENDO: Type 2 diabetes Hypothyroidism -On high scale SSI for glycemic control. Levemir 14u Q12, taper steroids -Continue Synthroid 50 mcg daily. TSH: 0.373 PROPH: -Bilateral lower extremity SCDs. Protonix for GI prophylaxis. Heparin SQ on hold for thrombocytopenia LINES: -Utilize peripheral IVs, Follow up on labs today CCT 30 mins Gerry Vivas MD Sep 17, 2016 08:25
[2016-09-17] MEDS: CHLORHEXIDINE 0.12% (ORAL KIT) 15 ML CUP MT SCH ×2 (08:58→19:15)
[2016-09-17] MEDS: BUMETANIDE INJ 1 MG/4 ML VIAL IV PUSH SCH ×3 (08:59→16:56)
[2016-09-17] MEDS: SERTRALINE HCL 50 MG TAB PO SCH (08:59)
[2016-09-17] MEDS: PRAVASTATIN SOD 40 MG TAB PO SCH (08:59)
[2016-09-17] MEDS: ASPIRIN 81 MG CHEW TAB PO SCH (08:59)
[2016-09-17] MEDS: PRIMIDONE 50 MG TAB PO SCH ×3 (08:59→16:58)
[2016-09-17] MEDS: DOCUSATE SODIUM 50 MG/SENNA 8.6 MG TAB PO SCH (08:59)
[2016-09-17] MEDS: INSULIN DETEMIR 100 UNITS/ML VIAL SQ SCH ×2 (08:59→19:14)
[2016-09-17] MEDS: FERROUS SULFATE 300 MG /5ML UDC PO SCH ×2 (08:59→19:26)
[2016-09-17] MEDS: methylPREDNISolone SOD SUCC 40 MG/1 ML VIAL IV SCH (09:00)
[2016-09-17] MEDS: CARVEDILOL 6.25 MG TAB PO SCH ×2 (09:00→19:14)
[2016-09-17 11:08] LABS: AUTOMATED NEUTROPHIL # 5.1 TH/MM3 (1.8-7.7); BASOPHIL % 0.7 % (0.0-2.0); EOSINOPHIL % 0.5 % (0.0-4.0); HEMATOCRIT 26.3 % (39.0-51.0); LYMPH % 8.8 % (9.0-44.0); LYMPHOCYTE # 0.5 TH/MM3 (1.0-4.8); MEAN CELL VOLUME 83.9 FL (80.0-100.0); MEAN CORPUSCULAR HGB CONC 33.4 % (32.0-36.0); MONO % 6.4 % (0.0-8.0); NEUT % 83.6 % (16.0-70.0); PLATELET COUNT 54 TH/MM3 (150-450); RED BLOOD COUNT 3.14 MIL/MM3 (4.50-5.90); RED CELL DISTRIBUTION WIDTH 16.8 % (11.6-17.2); WHITE BLOOD COUNT 6.1 TH/MM3 (4.0-11.0)
[2016-09-17 11:13] LABS: HEMO FLAGS AUTO DIFF
--- NOTE | 2016-09-17 11:22 | HHI.PR ---
Subjective Remarks 71 YOWM with Resp insuf, COPD,Lung infilt No fever at BS Pt intubated On AC 16,Fi02 50% Sedated Has Thrombocytopenia, stable Objective Vital Signs Vital Signs Date Time Temp Pulse Resp B/P Pulse Ox O2 Delivery O2 Flow Rate FiO2 09/17/16 08:20 93 45 09/17/16 06:00 74 09/17/16 04:10 94 50 09/17/16 04:00 74 09/17/16 04:00 99.3 74 22 115/58 96 09/17/16 04:00 Mechanical Ventilator 50 09/17/16 04:00 50 09/17/16 02:00 95 09/17/16 01:02 93 50 09/17/16 00:00 Mechanical Ventilator 50 09/17/16 00:00 98.2 95 20 101/55 96 09/17/16 00:00 95 09/17/16 00:00 50 09/16/16 22:05 92 50 09/16/16 22:00 77 09/16/16 20:33 93 50 09/16/16 20:00 98.9 77 20 95/50 96 09/16/16 20:00 77 09/16/16 20:00 40 09/16/16 20:00 Mechanical Ventilator 50 09/16/16 16:00 55 09/16/16 16:00 99.5 80 20 110/56 09/16/16 16:00 74 09/16/16 16:00 Mechanical Ventilator 50 09/16/16 15:49 93 50 09/16/16 13:29 92 50 09/16/16 12:00 55 09/16/16 12:00 80 09/16/16 12:00 Mechanical Ventilator 60 09/16/16 12:00 99.5 74 20 95/54 I/O 09/16/16 09/16/16 09/16/16 09/17/16 09/17/16 09/17/16 07:00 15:00 23:00 07:00 15:00 23:00 Intake Total 622 ml 685 ml 485 ml 555 ml Output Total 650 ml 1000 ml 800 ml 800 ml Balance -28 ml -315 ml -315 ml -245 ml IV Total 322 ml 270 ml 197 ml 232 ml Tube Feeding 300 ml 415 ml 288 ml 323 ml Output Urine Total 650 ml 1000 ml 800 ml 800 ml # Bowel Movements 0 Result Diagram: 09/17/16 1011 09/16/16 0338 Objective Remarks GENERAL: Obese WM, mild sob SKIN: Warm and dry. HEAD: Normocephalic. EYES: No scleral icterus. No injection or drainage. NECK: Supple, trachea midline. No JVD or lymphadenopathy. CARDIOVASCULAR: Regular rate and rhythm without murmurs, gallops, or rubs. RESPIRATORY: Breath sounds equal bilaterally. No accessory muscle use. GASTROINTESTINAL: Abdomen soft, non-tender, nondistended. MUSCULOSKELETAL: No cyanosis, or edema. BACK: Nontender without obvious deformity. No CVA tenderness. A/P Assessment and Plan Resp Failure, on Vent COPD Lung infilt DM Ch. Pain PLAN: Cont Abx IV Solumedrol Vent Support, AC16, Fi02 50% Aerosol nebs Monitor BS Monitor renal functions DW at BS Kai Escobedo MD Sep 17, 2016 11:22
[2016-09-17 11:35] LABS: BICARBONATE 36.7 MEQ/L (21.0-32.0); POTASSIUM 4.3 MEQ/L (3.5-5.1)
--- NOTE | 2016-09-17 12:10 | HHI.FPPN ---
Subjective Remarks He remains intubated and sedated. FiO2 weaned to 45%. PEEP of 12, 550 volume. Family at bedside, remain hopeful. (Eko,Rupali U R1) Objective Vitals Vital Signs Date Time Temp Pulse Resp B/P Pulse Ox O2 Delivery O2 Flow Rate FiO2 09/17/16 11:56 94 50 09/17/16 08:20 93 45 09/17/16 08:00 98.6 71 20 108/54 92 09/17/16 08:00 50 09/17/16 08:00 Mechanical Ventilator 50 09/17/16 08:00 71 09/17/16 06:00 74 09/17/16 04:10 94 50 09/17/16 04:00 74 09/17/16 04:00 99.3 74 22 115/58 96 09/17/16 04:00 Mechanical Ventilator 50 09/17/16 04:00 50 09/17/16 02:00 95 09/17/16 01:02 93 50 09/17/16 00:00 Mechanical Ventilator 50 09/17/16 00:00 98.2 95 20 101/55 96 09/17/16 00:00 95 09/17/16 00:00 50 09/16/16 22:05 92 50 09/16/16 22:00 77 09/16/16 20:33 93 50 09/16/16 20:00 98.9 77 20 95/50 96 09/16/16 20:00 77 09/16/16 20:00 40 09/16/16 20:00 Mechanical Ventilator 50 09/16/16 16:00 55 09/16/16 16:00 99.5 80 20 110/56 09/16/16 16:00 74 09/16/16 16:00 Mechanical Ventilator 50 09/16/16 15:49 93 50 09/16/16 13:29 92 50 I/O 09/16/16 09/16/16 09/16/16 09/17/16 09/17/16 09/17/16 07:00 15:00 23:00 07:00 15:00 23:00 Intake Total 622 ml 685 ml 485 ml 555 ml Output Total 650 ml 1000 ml 800 ml 800 ml Balance -28 ml -315 ml -315 ml -245 ml IV Total 322 ml 270 ml 197 ml 232 ml Tube Feeding 300 ml 415 ml 288 ml 323 ml Output Urine Total 650 ml 1000 ml 800 ml 800 ml # Bowel Movements 0 (Eko,Rupali U R1) Result Diagram: 09/17/16 1011 09/17/16 1011 Imaging Last Impressions Chest X-Ray 09/16/16 0600 Signed Impressions: Service Date/Time: September 05:38 - CONCLUSION: 1. Stable patchy, bilateral airspace disease with interstitial prominence. 2. Improving left sided effusion. 3. Stable position of life support tubes. Delfino Sylvester MD Lower Extremity Ultrasound 09/11/16 0000 Signed Impressions: Service Date/Time: Sunday, September 11, 2016 12:30 - CONCLUSION: No DVT is identified within either lower extremity. Frank Young MD CT Angiography 09/10/16 0000 Signed Impressions: Service Date/Time: Sunday, September 11, 2016 01:05 - CONCLUSION: No evidence of pulmonary embolism. Frank Hardin MD Abdomen Ultrasound 09/07/16 0000 Signed Impressions: Service Date/Time: Wednesday, September 07, 2016 16:45 - CONCLUSION: Heterogeneous hepatic echotexture consistent with chronic liver disease. Splenomegaly Mild to moderate ascites Mildly thickened gallbladder wall without evidence of gallstones. No evidence of hydronephrosis. Isidro Oliver MD Upper Extremity Ultrasound 09/06/16 0000 Signed Impressions: Service Date/Time: Tuesday, September 06, 2016 20:43 - CONCLUSION: No evidence of DVT. Isidro Oliver MD Chest CT 09/05/16 0000 Signed Impressions: Service Date/Time: Monday, September 05, 2016 15:37 - CONCLUSION: 1. Cardiomegaly with diffuse ground glass densities and consolidation likely pulmonary edema and/or pneumonia. 2. Small bilateral pleural effusions. 3. Prominent lymphadenopathy in the mediastinum. Cameron Archer MD Objective Remarks Gen.: Lying in bed, intubated, sedated Head: Normocephalic. Atraumatic. EENT: Pupils equal round and reactive to light. Nose without drainage. Airway intact. Cardiovascular: Regular rate and rhythm. 2/6 systolic ejection murmur along left sternal border. Respiratory: CTAB bilaterally Abdomen: Soft, nontender, nondistended. No peritoneal signs. Musculoskeletal: No gross deformities. No edema. Skin: No obvious rashes or erythema. Neuro: Intubated, sedated (Rupali Eddy MD R1) A/P Assessment and Plan 71-year-old male who presented with a 5-day history of shortness of breath and nonproductive cough. ACS rule out positive for NSTEMI. Patient has a history of COPD and was admitted with sepsis with cardiology consultation for NSTEMI. Developed respiratory distress on 09/04 and was transferred to the ICU with critical care consult. Tolerated BiPAP vs nonrebreather vs nasal cannula for several days, but due to worsening respiratory distress, he was intubated on 09/12. Cardiology to perform left heart catheterization when clinically better. Pulmonology on board. Nephrology consulted for PHILIPPE. Hematology consulted due to thrombocytopenia. Discharge Planning Pending clinical improvement (Rupali Eddy MD R1) Attending Attestation Patient seen and examined with the resident team. Case reviewed and discussed Agree with plan of care as discussed with me and documented in the resident note. (She Harris MD) Problem List: (1) Respiratory distress Status: Acute Plan: Intubated and sedated in the ICU -Critical care managing - will follow recs -Decrease FiO2 as tolerated -Daily sedation vacation -Steroids per critical care -DuoNebs every 6 hours -I's and O's -Daily weights (2) NSTEMI (non-ST elevated myocardial infarction) Status: Acute Plan: -Patient with elevated troponins to 1.[address] elevations in V1 V3 on admission -Cardiology signed off - may reconsult after clinical improvement -Left heart catheter when clinically able to tolerate procedure -Continue medical management (3) Aortic stenosis Status: Acute Plan: -Cardiothoracic surgery consulted -Cardiology and cardiothoracic surgery to discuss plans going forward -Will need to optimize medical management prior to performing any procedures -Pulmonology consulted given high surgical risk- appreciate recommendations (4) Pneumonia Status: Acute Plan: -Strep pneumoniae in sputum culture -Ceftarolin 300 mg IV discontinued -Pt has been afebrile with no elevated WBC count -Procalcitonin wnl on 09/15 -Infectious disease has signed off (5) CHF due to valvular disease Status: Acute Plan: Echo performed on 09/02 showed EF of 5055 percent. -Aortic valve with moderate to severe stenosis -Coreg 3.125 mg by mouth every 12 hours (6) PHILIPPE (acute kidney injury) Status: Acute Plan: Creatinine 1.34, trending down -Nephrology on board -Monitor I's and O's -Avoid nephrotoxins -Off Bumex drip -Increase intermittent Bumex to 2 mg IV TID (7) Thrombocytopenia Status: Acute Plan: Platelets 54 today -Transfuse for platelets less than 20K -Decreased aspirin to 81mg daily, discontinue for platelets less than 40K -Hematology consulted -Suspect due to DIC/Consumption--fibrinogen preserved -Heparin subcutaneous discontinued -HIT positive, but likely false positive, TIGIST wnl and result does not support HIT -Hepatitis panel negative -Abdominal ultrasound on 09/07 shows heterogeneous hepatic echo texture consistent with chronic liver disease, splenomegaly, mild to moderate ascites -Continue to monitor daily CBC (8) Diabetes Status: Chronic Plan: Patient's home regimen is NPH 25 units every morning and 50 units daily at bedtime -Intubated, on tube feeds -Currently on Levemir 14 units twice a day per critical care -Continue high scale SSI -Taper steroids -Adjust insulin regimen as needed (9) COPD exacerbation Status: Acute Plan: Patient with known COPD and [id number] history of smoking Albuterol every 2 hours when necessary DuoNeb nebs every 4 hours scheduled Solu-Medrol 40 mg every 12 hours (10) Hyponatremia Status: Acute Plan: -Pseudohyponatremia vs SIADH vs some element of both -Serum osmolality elevated at 304 -Uric acid within normal limits -Will follow with daily BMPs -Strict I's and O's (11) Hypertension Status: Chronic Plan: Continue Coreg. Hydralazine when necessary. Continue losartan (12) Anxiety and depression Status: Chronic Plan: -Continue home meds on adjusted regimen -Trazodone 100 mg by mouth daily - -Sertraline 100 mg by mouth daily - taper to 50mg -Buspirone 10mg BID - hold -Primidone 100mg PO BID - continue (13) BPH (benign prostatic hyperplasia) Status: Chronic Plan: -History of BPH -Patient states history of using Flomax but not on current list of medications -Will consider starting Flomax if patient has symptoms (14) Severe sepsis Status: Resolved Plan: Septic on admission Currently off antibiotics Repeat blood cultures negative to date Abx History: -Ceftarolin 600 mg every 12 hours IV, started on 09/10. DC 09/17 -Vancomycin 1250mg IV Q12h with pharmacy consult and Zosyn 3.375mg IV Q6h (dc ) -Azithromycin 500 mg by mouth every 24 hours started on 09/01. Dc'd on 09/07 (15) FEN/DVT PPX/GI PPX Status: Acute Plan: Fluids: per CC Electrolytes: Will monitor and replace as needed Nutrition: Tube feeds, Glucerna DVT Prophylaxis: Bilateral SCDs, heparin discontinued due to thrombocytopenia GI Prophylaxis: None currently (Rupali Eddy MD R1) Problem Qualifiers (1) Aortic stenosis: Qualified Code: I35.0 - Aortic valve stenosis, unspecified etiology (2) Pneumonia: Qualified Code: J18.9 - Pneumonia of both lungs due to infectious organism, unspecified part of lung (3) Diabetes: (4) Hypertension: Qualified Code: I10 - Essential hypertension Rupali Eddy MD R1 Sep 17, 2016 12:10 She Harris MD Sep 17, 2016 16:23
[2016-09-17 12:29] LABS: SCAN/DIFF AUTO DIFF CONFIRMED
--- NOTE | 2016-09-17 13:13 | HHI.NPPN ---
Subjective Complaints: Confused, Shortness of Breath General Problems: Edema Renal Failure: Chronic, Acute Interval History Remains intubated/sedated. Renal function improved. at bedside. (Prachi Palencia) Review of Systems General General Remarks unable to evaluate (Prachi Palencia) Objective Data Data 09/16/16 09/17/16 19:00 07:00 Intake Total 685 ml 1040 ml Output Total 1000 ml 1600 ml Balance -315 ml -560 ml IV Total 270 ml 429 ml Tube Feeding 415 ml 611 ml Output Urine Total 1000 ml 1600 ml # Bowel Movements 0 Vital Signs Date Time Temp Pulse Resp B/P Pulse Ox O2 Delivery O2 Flow Rate FiO2 09/17/16 11:56 94 50 09/17/16 08:20 93 45 09/17/16 08:00 98.6 71 20 108/54 92 09/17/16 08:00 50 09/17/16 08:00 Mechanical Ventilator 50 09/17/16 08:00 71 09/17/16 06:00 74 09/17/16 04:10 94 50 09/17/16 04:00 74 09/17/16 04:00 99.3 74 22 115/58 96 09/17/16 04:00 Mechanical Ventilator 50 09/17/16 04:00 50 09/17/16 02:00 95 09/17/16 01:02 93 50 09/17/16 00:00 Mechanical Ventilator 50 09/17/16 00:00 98.2 95 20 101/55 96 09/17/16 00:00 95 09/17/16 00:00 50 09/16/16 22:05 92 50 09/16/16 22:00 77 09/16/16 20:33 93 50 09/16/16 20:00 98.9 77 20 95/50 96 09/16/16 20:00 77 09/16/16 20:00 40 09/16/16 20:00 Mechanical Ventilator 50 09/16/16 16:00 55 09/16/16 16:00 99.5 80 20 110/56 09/16/16 16:00 74 09/16/16 16:00 Mechanical Ventilator 50 09/16/16 15:49 93 50 09/16/16 13:29 92 50 (Prachi Palencia) -: 09/17/16 1011 09/17/16 1011 Imaging Last 72 hours Impressions Chest X-Ray 09/16/16 0600 Signed Impressions: Service Date/Time: September 05:38 - CONCLUSION: 1. Stable patchy, bilateral airspace disease with interstitial prominence. 2. Improving left sided effusion. 3. Stable position of life support tubes. Delfino Sylvester MD Chest X-Ray 09/15/16 0600 Signed Impressions: Service Date/Time: Thursday, September 15, 2016 04:42 - CONCLUSION: Stable radiographic appearance of the chest with diffuse bilateral airspace disease, right greater than left. Probable associated left-sided effusion. Delfino Sylvester MD Tubes & Lines: Ortega Drip Comment fentanyl, propofol (Prachi Palencia. DAT) Physical Exam General Appearance: Well Developed, Well Nourished, No Acute Distress Appearance Remarks intubated/sedated/unresponsive (Prachi PalenciaP) Throat Throat Exam: Oral Mucosa [place] & Moist (Prachi Palencia) Pulmonary Resp Exam: Breath Sounds Equal, Crackles, Decreased Bases (Prachi Palencia B. MEDICINE AND HEALTH SERVICE MANAGER) Cardiology CV Exam: Regular, Good Perfusion (Prachi Palencia B. MEDICINE AND HEALTH SERVICE MANAGER) Gastrointestinal/Abdomen GI Exam: Soft, Non-Tender, Bowel Sounds Present (Prachi Palencia B. MEDICINE AND HEALTH SERVICE MANAGER) Genitourinary Exam: Clear Urine (Prachi Palencia B. MEDICINE AND HEALTH SERVICE MANAGER) Musculoskeletal MS Exam: Joints Intact, Normal Gait, Normal Tone (Prachi Palencia MEDICINE AND HEALTH SERVICE MANAGER) Integumentary Skin Exam: Clear, Warm, Dry, Intact, Tenting (Prachi Palencia B. MEDICINE AND HEALTH SERVICE MANAGER) Extremeties Extremities Exam: Pedal Pulses Palpable, Moderate Edema (Prachi Palencia B. MEDICINE AND HEALTH SERVICE MANAGER) Neurologic Neuro Exam: Unresponsive, Sedated (Prachi Palencia B. MEDICINE AND HEALTH SERVICE MANAGER) Psychiatric Psych Exam: Appropriate Responses (Prachi PalenciaP) Assessment/Plan Discussed Condition With: Spouse, Relative Assessment Summary: PHILIPPE/Acute Renal Failure Problem List: (1) PHILIPPE (acute kidney injury) Plan: initial ARF due to ATN, secondary to renal hypoperfusion injury (sepsis , hypotension, A fib RVR); that had resolved renal function has improved off IVF, on intermittent Bumex 2 mg IV TID monitor response, he is non oliguric follow electrolytes, replace as needed BUN high, may be due to steroids avoid nephrotoxins, heart cath on hold ortega in place for I/O measurement daily renal panel (2) Congestive heart failure (CHF) Plan: monitor fluid volume status diuresis as above (3) Diabetes Plan: continue insulin therapy monitor glucose, goal 140-180 mg/dL (4) Hypertension Plan: previously on pressors BP stable, continue antihypertensives (5) Severe sepsis Plan: previously being treated for strep pneumonia now with ARDS type presentation, 02 requirement now at 50% ID following, back on Ceftaroline WBC normalized (6) Aortic stenosis Plan: cardiology signed off until he is extubated plan for heart cath if clinically improved (7) A-fib Plan: off Amiodarone gtt rate controlled (Prachi Palencia) Problem List: (1) PHILIPPE (acute kidney injury) Plan: initial ARF due to ATN, secondary to renal hypoperfusion injury (sepsis , hypotension, A fib RVR); that had resolved renal function has improved off IVF, on intermittent Bumex 2 mg IV TID monitor response, he is non oliguric follow electrolytes, replace as needed BUN high, may be due to steroids avoid nephrotoxins, heart cath on hold ortega in place for I/O measurement daily renal panel (2) Congestive heart failure (CHF) Plan: monitor fluid volume status diuresis as above (3) Diabetes Plan: continue insulin therapy monitor glucose, goal 140-180 mg/dL (4) Hypertension Plan: previously on pressors BP stable, continue antihypertensives (5) Severe sepsis Plan: previously being treated for strep pneumonia now with ARDS type presentation, 02 requirement now at 50% ID following, back on Ceftaroline WBC normalized (6) Aortic stenosis Plan: cardiology signed off until he is extubated plan for heart cath if clinically improved (7) A-fib Plan: off Amiodarone gtt rate controlled Plan patient was seen and examined. Continue diuresis. Teflaro has been stopped. Non oliguric. Renal function is stable. (Gentry Roa MD) Problem Qualifiers (1) Congestive heart failure (CHF): (2) Diabetes: (3) Hypertension: Qualified Code: I10 - Essential hypertension (4) Aortic stenosis: Qualified Code: I35.0 - Aortic valve stenosis, unspecified etiology Prachi Palencia Sep 17, 2016 13:13 Gentry Roa MD Sep 17, 2016 15:24
[2016-09-17] MEDS: traZODone HCL 100 MG TAB PO SCH (19:14)
[2016-09-18] VITALS (20 sets, daily range): BP systolic 101–121; BP diastolic 51–56; PULSE 72–79; RESP 20–24; TEMP 98.8–102.2; O2SAT 93–98
[2016-09-18] MEDS: INSULIN NovoLIN REGULAR SUPPLEMENTAL SCALE SQ SCH ×4 (01:34→20:44)
[2016-09-18] MEDS: PROPOFOL 1000 MG/100 ML INJ 100 ML IV SCH ×4 (02:01→19:37)
--- NOTE | 2016-09-18 03:38 | RADRPT ---
EXAM DATE/TIME: 09/18/2016 02:48 [place] COMPARISON: CHEST SINGLE AP, September 16, 2016, 5:38. INDICATIONS : Shortness of breath, possible pulmonary disease MEDICAL HISTORY : None. SURGICAL HISTORY : None. ENCOUNTER: Subsequent ACUITY: 1 week PAIN SCORE: Non-responsive. LOCATION: Bilateral chest FINDINGS: Endotracheal tube tip well above the brynn. Gastric tube traverses the [id number]. Patchy non-c onsolidative infiltrates throughout both lungs similar in severity and distribution compared to prior . The heart is upper limits normal size. CONCLUSION: Persistent diffuse bilateral infiltrates. Nathan Todd MD on September 18, 2016 at 3:36 Board Certified Radiologist. This report was verified electronically.
[2016-09-18] MEDS: hydrALAZINE HCL 50 MG TAB PO SCH ×2 (05:09→14:00)
[2016-09-18] MEDS: LEVOTHYROXINE SODIUM 50 MCG TAB PO SCH (05:17)
[2016-09-18] MEDS: PANTOPRAZOLE SODIUM 40 MG VIAL IV PUSH SCH ×2 (05:17→17:14)
[2016-09-18 05:54] LABS: AUTOMATED NEUTROPHIL # 5.4 TH/MM3 (1.8-7.7); BASOPHIL % 0.5 % (0.0-2.0); EOSINOPHIL % 0.6 % (0.0-4.0); HEMATOCRIT 23.7 % (39.0-51.0); LYMPH % 10.9 % (9.0-44.0); LYMPHOCYTE # 0.7 TH/MM3 (1.0-4.8); MEAN CELL VOLUME 84.7 FL (80.0-100.0); MEAN CORPUSCULAR HEMOGLOBIN 27.6 PG (27.0-34.0); MEAN CORPUSCULAR HGB CONC 32.5 % (32.0-36.0); MONO % 7.3 % (0.0-8.0); NEUT % 80.7 % (16.0-70.0); PLATELET COUNT 54 TH/MM3 (150-450); RED CELL DISTRIBUTION WIDTH 16.4 % (11.6-17.2); WHITE BLOOD COUNT 6.7 TH/MM3 (4.0-11.0)
[2016-09-18 06:00] LABS: HEMO FLAGS AUTO DIFF
[2016-09-18 06:20] LABS: BICARBONATE 37.1 MEQ/L (21.0-32.0); MAGNESIUM 2.6 MG/DL (1.5-2.5); POTASSIUM 4.5 MEQ/L (3.5-5.1)
[2016-09-18 07:29] LABS: PLATELET ESTIMATE SMEAR LOW (NORMAL); PLATELET MORPHOLOGY NORMAL (NORMAL); SCAN/DIFF AUTO DIFF CONFIRMED
--- NOTE | 2016-09-18 08:56 | HHI.FPPN ---
Subjective Remarks He remains intubated and sedated. FIO2 55%, PEEP of 12, RR 20, 550 mL. Family at bedside. They are aware of no major changes in patient's clinical status since the previous day. (Eko,Rupali Stewart MD R1) Objective Vitals Vital Signs Date Time Temp Pulse Resp B/P Pulse Ox O2 Delivery O2 Flow Rate FiO2 09/18/16 06:00 75 09/18/16 04:00 98.9 72 20 112/55 94 09/18/16 04:00 Mechanical Ventilator 15.00 55 09/18/16 04:00 72 09/18/16 04:00 50 09/18/16 03:52 95 55 09/18/16 02:00 75 09/18/16 00:00 99.6 75 20 110/53 93 09/18/16 00:00 50 09/18/16 00:00 75 09/18/16 00:00 Mechanical Ventilator 15.00 55 09/17/16 23:43 93 55 09/17/16 22:00 75 09/17/16 21:42 93 55 09/17/16 20:46 91 55 09/17/16 20:00 75 09/17/16 20:00 50 09/17/16 20:00 99.5 75 20 111/54 90 09/17/16 20:00 Mechanical Ventilator 15.00 50 09/17/16 16:00 99.2 78 20 110/53 91 09/17/16 16:00 Mechanical Ventilator 50 09/17/16 16:00 50 09/17/16 15:52 93 50 09/17/16 12:00 Mechanical Ventilator 50 09/17/16 12:00 99.0 75 20 111/56 94 09/17/16 12:00 50 09/17/16 11:56 94 50 I/O 09/17/16 09/17/16 09/17/16 09/18/16 09/18/16 09/18/16 07:00 15:00 23:00 07:00 15:00 23:00 Intake Total 555 ml 826 ml 338 ml 735 ml Output Total 800 ml 1000 ml 500 ml 600 ml Balance -245 ml -174 ml -162 ml 135 ml IV Total 232 ml 335 ml 120 ml 290 ml Tube Feeding 323 ml 491 ml 178 ml 405 ml Tube Irrigant 40 ml 40 ml Output Urine Total 800 ml 1000 ml 500 ml 600 ml Stool Total 0 ml 0 ml # Bowel Movements 0 (Eko,Rupali U R1) Result Diagram: 09/18/16 0457 09/18/16 0457 Imaging Last Impressions Chest X-Ray 09/16/16 0600 Signed Impressions: Service Date/Time: September 05:38 - CONCLUSION: 1. Stable patchy, bilateral airspace disease with interstitial prominence. 2. Improving left sided effusion. 3. Stable position of life support tubes. Delfino Sylvester MD Lower Extremity Ultrasound 09/11/16 0000 Signed Impressions: Service Date/Time: Sunday, September 11, 2016 12:30 - CONCLUSION: No DVT is identified within either lower extremity. Frank Young MD CT Angiography 09/10/16 0000 Signed Impressions: Service Date/Time: Sunday, September 11, 2016 01:05 - CONCLUSION: No evidence of pulmonary embolism. Frank Hardin MD Abdomen Ultrasound 09/07/16 0000 Signed Impressions: Service Date/Time: Wednesday, September 07, 2016 16:45 - CONCLUSION: Heterogeneous hepatic echotexture consistent with chronic liver disease. Splenomegaly Mild to moderate ascites Mildly thickened gallbladder wall without evidence of gallstones. No evidence of hydronephrosis. Isidro Oliver MD Upper Extremity Ultrasound 09/06/16 0000 Signed Impressions: Service Date/Time: Tuesday, September 06, 2016 20:43 - CONCLUSION: No evidence of DVT. Isidro Oliver MD Chest CT 09/05/16 0000 Signed Impressions: Service Date/Time: Monday, September 05, 2016 15:37 - CONCLUSION: 1. Cardiomegaly with diffuse ground glass densities and consolidation likely pulmonary edema and/or pneumonia. 2. Small bilateral pleural effusions. 3. Prominent lymphadenopathy in the mediastinum. Cameron Archer MD Objective Remarks Gen.: Lying in bed, intubated, sedated Head: Normocephalic. Atraumatic. EENT: Pupils equal round and reactive to light. Nose without drainage. Airway intact. Cardiovascular: Regular rate and rhythm. 2/6 systolic ejection murmur along left sternal border. Respiratory: CTAB bilaterally Abdomen: Soft, nontender, nondistended. No peritoneal signs. Musculoskeletal: No gross deformities. No edema. Skin: No obvious rashes or erythema. Neuro: Intubated, sedated (Rupali Eddy MD R1) A/P Assessment and Plan 71-year-old male who presented with a 5-day history of shortness of breath and nonproductive cough. ACS rule out positive for NSTEMI. Patient has a history of COPD and was admitted with sepsis with cardiology consultation for NSTEMI. Developed respiratory distress on 09/04 and was transferred to the ICU with critical care consult. Tolerated BiPAP vs nonrebreather vs nasal cannula for several days, but due to worsening respiratory distress, he was intubated on 09/12. Cardiology to perform left heart catheterization when clinically better. Pulmonology on board. Nephrology consulted for PHILIPPE. Hematology consulted due to thrombocytopenia. Discharge Planning Pending clinical improvement (Rupali Eddy MD R1) Attending Attestation Patient seen and examined. Case reviewed and discussed. Agree with plan of care as discussed with me and documented in the resident note. (She Harris MD) Problem List: (1) ARDS (adult respiratory distress syndrome) Status: Acute Plan: Intubated and sedated in the ICU -Critical care managing - will follow recs -Consider placing in a prone bed -Decrease FIO2 as tolerated -Daily sedation vacation -Steroids per critical care -DuoNebs every 6 hours -I's and O's -Daily weights (2) NSTEMI (non-ST elevated myocardial infarction) Status: Acute Plan: -Patient with elevated troponins to 1.[address] elevations in V1 V3 on admission -Cardiology signed off - may reconsult after clinical improvement -Left heart catheter when clinically able to tolerate procedure -Continue medical management (3) Aortic stenosis Status: Acute Plan: -Cardiothoracic surgery consulted -Cardiology and cardiothoracic surgery to discuss plans going forward -Will need to optimize medical management prior to performing any procedures -Pulmonology consulted given high surgical risk- appreciate recommendations (4) Pneumonia Status: Resolved Plan: -Strep pneumoniae in sputum culture -Ceftarolin 300 mg IV discontinued -Pt has been afebrile with no elevated WBC count -Procalcitonin wnl on 09/15 -Infectious disease has signed off (5) CHF due to valvular disease Status: Acute Plan: Echo performed on 09/02 showed EF of 5055 percent. -Aortic valve with moderate to severe stenosis -Coreg 3.125 mg by mouth every 12 hours (6) PHILIPPE (acute kidney injury) Status: Acute Plan: Creatinine 1.34, trending down -Nephrology on board -Monitor I's and O's -Avoid nephrotoxins -Off Bumex drip -Increase intermittent Bumex to 2 mg IV TID (7) Thrombocytopenia Status: Acute Plan: Platelets 54 today -Transfuse for platelets less than 20K -Decreased aspirin to 81mg daily, discontinue for platelets less than 40K -Hematology consulted -Suspect due to DIC/Consumption--fibrinogen preserved -Heparin subcutaneous discontinued -HIT positive, but likely false positive, TIGIST wnl and result does not support HIT -Hepatitis panel negative -Abdominal ultrasound on 09/07 shows heterogeneous hepatic echo texture consistent with chronic liver disease, splenomegaly, mild to moderate ascites -Continue to monitor daily CBC (8) Diabetes Status: Chronic Plan: Patient's home regimen is NPH 25 units every morning and 50 units daily at bedtime -Intubated, on Glucerna tube feeds -Currently on Levemir 14 units twice a day per critical care -Continue high scale SSI -Taper steroids -Adjust insulin regimen as needed (9) COPD exacerbation Status: Acute Plan: Patient with known COPD and 10-[id number]-[id number] history of smoking Albuterol every 2 hours when necessary DuoNeb nebs every 4 hours scheduled Solu-Medrol 40 mg every 12 hours (10) Hypertension Status: Chronic Plan: Continue Coreg. Hydralazine when necessary. Continue losartan (11) Anxiety and depression Status: Chronic Plan: -Continue home meds on adjusted regimen -Trazodone 100 mg by mouth daily - -Sertraline 100 mg by mouth daily - taper to 50mg -Buspirone 10mg BID - hold -Primidone 100mg PO BID - continue (12) FEN/DVT PPX/GI PPX Status: Acute Plan: Fluids: per CC Electrolytes: Will monitor and replace as needed Nutrition: Tube feeds, Glucerna DVT Prophylaxis: Bilateral SCDs, heparin discontinued due to thrombocytopenia GI Prophylaxis: None currently (EkoRupali MD R1) Problem Qualifiers (1) Aortic stenosis: Qualified Code: I35.0 - Aortic valve stenosis, unspecified etiology (2) Pneumonia: Qualified Code: J18.9 - Pneumonia of both lungs due to infectious organism, unspecified part of lung (3) Diabetes: (4) Hypertension: Qualified Code: I10 - Essential hypertension Rupali Eddy MD R1 Sep 18, 2016 08:56 She Harris MD Sep 23, 2016 17:42
[2016-09-18] MEDS: CHLORHEXIDINE 0.12% (ORAL KIT) 15 ML CUP MT SCH ×2 (09:59→20:44)
[2016-09-18] MEDS: INSULIN DETEMIR 100 UNITS/ML VIAL SQ SCH ×2 (09:59→20:41)
[2016-09-18] MEDS: FERROUS SULFATE 300 MG /5ML UDC PO SCH ×2 (09:59→20:41)
[2016-09-18] MEDS: DOCUSATE SODIUM 50 MG/SENNA 8.6 MG TAB PO SCH (10:00)
[2016-09-18] MEDS: PRAVASTATIN SOD 40 MG TAB PO SCH (10:00)
[2016-09-18] MEDS: SERTRALINE HCL 50 MG TAB PO SCH (10:00)
[2016-09-18] MEDS: ASPIRIN 81 MG CHEW TAB PO SCH (10:01)
[2016-09-18] MEDS: CARVEDILOL 6.25 MG TAB PO SCH ×2 (10:01→20:41)
[2016-09-18] MEDS: PRIMIDONE 50 MG TAB PO SCH ×3 (10:02→17:14)
[2016-09-18] MEDS: BUMETANIDE INJ 1 MG/4 ML VIAL IV PUSH SCH ×3 (10:04→17:17)
[2016-09-18] MEDS: SODIUM CHLORIDE 0.9% FLUSH 5 ML FLUSH IVF PRN ×3 (10:05→17:17)
[2016-09-18] MEDS: methylPREDNISolone SOD SUCC 40 MG/1 ML VIAL IV SCH (10:05)
--- NOTE | 2016-09-18 11:16 | HHI.NPPN ---
Subjective Complaints: Confused, Shortness of Breath General Problems: Edema Renal Failure: Chronic, Acute Additional Remarks Patient remains intubated, sedated. No signs of distress Review of Systems General General Remarks unable to evaluate Objective Data Data 09/17/16 09/18/16 19:00 07:00 Intake Total 826 ml 1073 ml Output Total 1000 ml 1100 ml Balance -174 ml -27 ml IV Total 335 ml 410 ml Tube Feeding 491 ml 583 ml Tube Irrigant 80 ml Output Urine Total 1000 ml 1100 ml Stool Total 0 ml # Bowel Movements 0 Vital Signs Date Time Temp Pulse Resp B/P Pulse Ox O2 Delivery O2 Flow Rate FiO2 09/18/16 09:07 95 55 09/18/16 06:00 75 09/18/16 04:00 98.9 72 20 112/55 94 09/18/16 04:00 Mechanical Ventilator 15.00 55 09/18/16 04:00 72 09/18/16 04:00 50 09/18/16 03:52 95 55 09/18/16 02:00 75 09/18/16 00:00 99.6 75 20 110/53 93 09/18/16 00:00 50 09/18/16 00:00 75 09/18/16 00:00 Mechanical Ventilator 15.00 55 09/17/16 23:43 93 55 09/17/16 22:00 75 09/17/16 21:42 93 55 09/17/16 20:46 91 55 09/17/16 20:00 75 09/17/16 20:00 50 09/17/16 20:00 99.5 75 20 111/54 90 09/17/16 20:00 Mechanical Ventilator 15.00 50 09/17/16 16:00 99.2 78 20 110/53 91 09/17/16 16:00 Mechanical Ventilator 50 09/17/16 16:00 50 09/17/16 15:52 93 50 09/17/16 12:00 Mechanical Ventilator 50 09/17/16 12:00 99.0 75 20 111/56 94 09/17/16 12:00 50 09/17/16 11:56 94 50 -: 09/18/16 0457 09/18/16 0457 Tubes & Lines: Ortega Drip Comment fentanyl, propofol Physical Exam General Appearance: Well Developed, Well Nourished, No Acute Distress Throat Throat Exam: Oral Mucosa [place] & Moist Pulmonary Resp Exam: Breath Sounds Equal, Crackles, Decreased Bases Cardiology CV Exam: Regular, Good Perfusion Gastrointestinal/Abdomen GI Exam: Soft, Non-Tender, Bowel Sounds Present Genitourinary Exam: Clear Urine Musculoskeletal MS Exam: Joints Intact, Normal Gait, Normal Tone Integumentary Skin Exam: Clear, Warm, Dry, Intact, Tenting Extremeties Extremities Exam: Pedal Pulses Palpable, Moderate Edema Neurologic Neuro Exam: Unresponsive, Sedated Psychiatric Psych Exam: Appropriate Responses Assessment/Plan Discussed Condition With: Spouse, Relative Assessment Summary: PHILIPPE/Acute Renal Failure Problem List: (1) PHILIPPE (acute kidney injury) Plan: initial ARF due to ATN, secondary to renal hypoperfusion injury (sepsis , hypotension, A fib RVR); that had resolved renal function has improved off IVF, on intermittent Bumex 2 mg IV TID. 2.1L UOP over 24 hours, creatinine stable. Continue Bumex follow electrolytes, replace as needed BUN high, may be due to steroids avoid nephrotoxins, heart cath on hold ortega in place for I/O measurement daily renal panel (2) Congestive heart failure (CHF) Plan: monitor fluid volume status diuresis as above (3) Diabetes Plan: continue insulin therapy monitor glucose, goal 140-180 mg/dL (4) Hypertension Plan: previously on pressors BP stable, continue antihypertensives (5) Severe sepsis Plan: previously being treated for strep pneumonia now with ARDS type presentation, 02 requirement now at 50% ID following, back on Ceftaroline WBC normalized (6) Aortic stenosis Plan: cardiology signed off until he is extubated plan for heart cath if clinically improved (7) A-fib Plan: off Amiodarone gtt rate controlled Problem Qualifiers (1) Congestive heart failure (CHF): (2) Diabetes: (3) Hypertension: Qualified Code: I10 - Essential hypertension (4) Aortic stenosis: Qualified Code: I35.0 - Aortic valve stenosis, unspecified etiology (5) A-fib: Qualified Code: I48.91 - Atrial fibrillation, unspecified type Bonifacio Gonzales MD Sep 18, 2016 11:16
--- NOTE | 2016-09-18 14:38 | HHI.PR ---
Subjective Remarks 71 YOWM with Resp insuf, COPD,Lung infilt No fever Pt intubated On AC 16,Fi02 55% Sedated Has Thrombocytopenia, stable Objective Vital Signs Vital Signs Date Time Temp Pulse Resp B/P Pulse Ox O2 Delivery O2 Flow Rate FiO2 09/18/16 12:36 100.6 72 20 101/51 95 09/18/16 12:26 55 09/18/16 12:26 96 Mechanical Ventilator 55 09/18/16 12:25 72 09/18/16 11:57 95 55 09/18/16 10:00 75 09/18/16 09:07 95 55 09/18/16 08:00 95 Mechanical Ventilator 55 09/18/16 08:00 75 09/18/16 08:00 55 09/18/16 08:00 99.0 75 20 121/56 95 09/18/16 06:00 75 09/18/16 04:00 98.9 72 20 112/55 94 09/18/16 04:00 Mechanical Ventilator 15.00 55 09/18/16 04:00 72 09/18/16 04:00 50 09/18/16 03:52 95 55 09/18/16 02:00 75 09/18/16 00:00 99.6 75 20 110/53 93 09/18/16 00:00 50 09/18/16 00:00 75 09/18/16 00:00 Mechanical Ventilator 15.00 55 09/17/16 23:43 93 55 09/17/16 22:00 75 09/17/16 21:42 93 55 09/17/16 20:46 91 55 09/17/16 20:00 75 09/17/16 20:00 50 09/17/16 20:00 99.5 75 20 111/54 90 09/17/16 20:00 Mechanical Ventilator 15.00 50 09/17/16 16:00 99.2 78 20 110/53 91 09/17/16 16:00 Mechanical Ventilator 50 09/17/16 16:00 50 09/17/16 15:52 93 50 I/O 09/17/16 09/17/16 09/17/16 09/18/16 09/18/16 09/18/16 07:00 15:00 23:00 07:00 15:00 23:00 Intake Total 555 ml 826 ml 338 ml 735 ml Output Total 800 ml 1000 ml 500 ml 600 ml Balance -245 ml -174 ml -162 ml 135 ml IV Total 232 ml 335 ml 120 ml 290 ml Tube Feeding 323 ml 491 ml 178 ml 405 ml Tube Irrigant 40 ml 40 ml Output Urine Total 800 ml 1000 ml 500 ml 600 ml Stool Total 0 ml 0 ml # Bowel Movements 0 Result Diagram: 09/18/1645609/18/16456 Objective Remarks GENERAL: Obese WM, mild sob SKIN: Warm and dry. HEAD: Normocephalic. EYES: No scleral icterus. No injection or drainage. NECK: Supple, trachea midline. No JVD or lymphadenopathy. CARDIOVASCULAR: Regular rate and rhythm without murmurs, gallops, or rubs. RESPIRATORY: Breath sounds equal bilaterally. No accessory muscle use. GASTROINTESTINAL: Abdomen soft, non-tender, nondistended. MUSCULOSKELETAL: No cyanosis, or edema. BACK: Nontender without obvious deformity. No CVA tenderness. A/P Assessment and Plan Resp Failure, on Vent COPD Lung infilt DM Ch. Pain PLAN: Cont Abx IV Solumedrol Vent Support, AC16, Fi02 55% Aerosol nebs Monitor BS Monitor renal functions DW at BS Kai Escobedo MD Sep 18, 2016 14:38
--- NOTE | 2016-09-18 14:50 | HHI.FPPN ---
Addendum to progress note ADDENDUM Reason for addendum: Additonal documentation Additional information OFF SERVICE NOTE History of Present Illness "Mr. Gudino is a 71 year old male with a past medical history of hypertension , aortic valvular disease, anxiety, depression, and BPH that presents to the [place] ED with a chief complaint of shortness of breath of 5 days duration. The patient's and daughter were in the room and corroborated the history. The patient states that he felt very weak and could barely walk to the bathroom because he was so short of breath. He states that he also felt very hot, but did not measure his temperature at home. His gave him some old inhalers on Sunday 08/27, some Xanax on Monday 08/28, and some old diazepam medications every 4-5 hours, which calmed him down such that he was able to sleep. He finally agreed to come into the hospital today because he felt really short of breath. Associated symptoms include subjective fever, and cough which was nonproductive until Tuesday. He has also had a constant dry throat and some sweating but not at night. He denies chest pain, chills, headache, nausea, vomiting, diarrhea, and abdominal pain. His appetite has been poor since Tuesday and he has not eaten much. He has also had some muscle aches in his shoulders bilaterally. Patient denies any sick contacts and he did get the flu shot." Hospital Course Mr. Giron was diagnosed and admitted to the FP service with [id number] KS , COPD exacerbation and probable pneumonia. He was started on IV antibiotics with Rocephin and azithromycin and also was placed on IV steroids and DuoNeb breathing treatment for probable COPD exacerbation. Cardiology was consulted, and echo showed moderate to severe aortic stenosis. Plans were made for a cardiac catheterization which had to be postponed pending recovery from pneumonia. All his blood cultures so far have been negative. He was also found to be negative for flu A and B as well as Legionella. However, his sputum culture grew strep pneumo for which he was treated with Ceftaroline. A HaliCAT was called because the patient was increasingly lethargic with increased dyspnea and hypoxia. He desaturated to the 70%'s when his nurse attempted to move him or when his nasal cannula was removed. Chest x-ray showed bilateral pulmonary edema worsening compared to admission. He was transferred to the ICU and critical care medicine was consulted. After many days on BiPAP/ nonrebreather, he was mechanically ventilated for persistent hypoxia. He is currently diagnosed with ARDS and remains mechanically ventilated in the ICU. He is not on any antibiotics at the moment. He remains on IV steroids and IV Bumex. He is currently being followed or was being followed by the following specialists: Pulmonology for ARDS and pneumonia Hematology for thrombocytopenia Nephrology for acute renal failure Infectious disease for pneumonia - signed off Cardiology for heart cath secondary to NSTEMI - signed off pending recovery CT surgery for aortic valve replacement - signed off pending recovery (Rupali Eddy MD R1) Rupali Eddy MD R1 Sep 18, 2016 14:49 She Harris MD Sep 23, 2016 17:42
--- NOTE | 2016-09-18 16:47 | HHI.CCPN ---
Subjective Remarks/Hospital Course The patient is a 71-year-old male with past medical history significant for COPD, aortic stenosis, hypertension and diabetes who presented to the emergency department with progressive shortness of breath and nonproductive cough for last 5 days. He was diagnosed and admitted to service on with [id number] MN, COPD exacerbation and probable pneumonia. He had a previous heart catheterization in 2014, was told at that time he needed to have aortic valve replacement. He was started on IV antibiotics with Rocephin and azithromycin and also was placed on IV steroids and DuoNeb breathing treatment for probable COPD exacerbation. All the cultures so far negative, also negative for influenza A and B, negative for Streptococcus and Legionella antigen. Cardiology was consulted, and echo showed moderate to severe aortic stenosis. Cardiothoracic surgery was also consulted and is following, plan for cardiac catheterization this Tuesday. A Halicat was called today as the patient was increasingly lethargic with increased dyspnea and hypoxia. He desaturated to the 70% when RN attempted to move him. Chest x-ray showed bilateral pulmonary edema worsening compared to admission. He was moved to the ICU and critical care medicine was consulted. I evaluated the patient in ICU. He is tachypneic on 100% nonrebreather. Examination revealed bilateral crackles. 60 mg of IV Lasix stat given and patient was ordered to be placed on BiPAP at 06/16. BNP was 658 SUBJECT 09/05/16: Patient did not tolerate BiPAP overnight. Currently remains on partial nonrebreather. Urine output more than 6 L in 24 hours. He developed atrial flutter with RVR, was placed on esmolol which I have changed to Cardizem. Chest x-ray shows interval improvement in my review 09/06/16: Remains on pNRB. sputum cx with strep pneumo. Urine out put diminishing. 1L bolus given with adequate response. Bilateral lung infiltrate. Discussed with Dr. Dudley. Will hold off cath until Reps failure/ALI improves and renal failure improves 09.07 Patient is on BIPAP 06/16 with FIO2 65%. Afebrile. 09/08 Patient is off BIPAP on Bumex drip 2mg/hr with UO 7.6L in 24 hrs. Afebrile feeling better. Renal function improving with Cr 1.52 from 2.07. 09/09 Patient is on partial rebreather with good sats. Afebrile. Renal function improving with Cr: 1.09 from 1.52. Remains on Bumex drip down 0.5mg/hr. 09/10 Patient was placed on Amio drip yesterday . Afebrile. Off Bumex drip. 09/11 No acute events overnight. Remains on Amio drip. On partial rebreather. CT chest last night showed no PE. 09/12 No acute events overnight. Remains on partial rebreather, off Amio drip. Afebrile. 09/13 Patient was intubated yesterday for resp distress and hypoxemia. Sedated with Diprivan and Fentanyl. Afebrile. On PRVC/AC RR 18, TV 550, PEEP: 10, FIO2 60%. 09/14 Patient is sedated with Diprivan and Fentanyl. Off Bumex drip, afebrile. Cr 1.53 today from 1.41. 09/15: Remains sedated. FiO2 70% with PEEP of 10. CXR unchanged. Creat 1.57. CXR remains same with bilateral infiltrates 09/16: Remains intubated sedated. FiO2 at 50% with a PEEP of 12. Chest x-ray unchanged to slightly improved. Urine output 2.4 L in 24 hours after starting Bumex 2 mg IV every 12 yesterday by nephrology. Creatinine stable to slightly improved 09/17 Patient is sedated with Diprivan/Fentanyl and intubated. On PRVC/AC RR 20 , TV 550, IT:0.9, PEEP:12, FIO2 50%. Afebrile. 09/18: very high peak pressures in the 40s despite conservative PRVC settings. still grossly volume overloaded. also spiked new fever to 102 today, off abx. minimal secretions. very critically ill. Objective Vital Signs Date Time Temp Pulse Resp B/P Pulse Ox O2 Delivery O2 Flow Rate FiO2 09/18/16 16:17 95 Mechanical Ventilator 55 09/18/16 16:14 77 09/18/16 12:36 100.6 20 101/51 09/18/16 04:00 15.00 Intake and Output 09/17/16 09/17/16 09/18/16 08:00 16:00 00:00 Intake Total 555 ml 826 ml 338 ml Output Total 800 ml 1000 ml 500 ml Balance -245 ml -174 ml -162 ml Result Diagram: 09/18/167 09/18/16 0457 Imaging Last Impressions Chest X-Ray 09/16/16 0600 Signed Impressions: Service Date/Time: September 05:38 - CONCLUSION: 1. Stable patchy, bilateral airspace disease with interstitial prominence. 2. Improving left sided effusion. 3. Stable position of life support tubes. Delfino Sylvester MD Lower Extremity Ultrasound 09/11/16 0000 Signed Impressions: Service Date/Time: Sunday, September 11, 2016 12:30 - CONCLUSION: No DVT is identified within either lower extremity. Frank Young MD CT Angiography 09/10/16 0000 Signed Impressions: Service Date/Time: Sunday, September 11, 2016 01:05 - CONCLUSION: No evidence of pulmonary embolism. Frank Hardin MD Abdomen Ultrasound 09/07/16 0000 Signed Impressions: Service Date/Time: Wednesday, September 07, 2016 16:45 - CONCLUSION: Heterogeneous hepatic echotexture consistent with chronic liver disease. Splenomegaly Mild to moderate ascites Mildly thickened gallbladder wall without evidence of gallstones. No evidence of hydronephrosis. Isidro Oliver MD Upper Extremity Ultrasound 09/06/16 0000 Signed Impressions: Service Date/Time: Tuesday, September 06, 2016 20:43 - CONCLUSION: No evidence of DVT. Isidro Oliver MD Chest CT 09/05/16 0000 Signed Impressions: Service Date/Time: Monday, September 05, 2016 15:37 - CONCLUSION: 1. Cardiomegaly with diffuse ground glass densities and consolidation likely pulmonary edema and/or pneumonia. 2. Small bilateral pleural effusions. 3. Prominent lymphadenopathy in the mediastinum. Cameron Archer MD Objective Remarks Gen: 71-year-old male lying in bed intubated and sedated. Head: Normocephalic. Atraumatic. EENT: Pupils equal round and reactive to light. Cardiovascular: S1-S2 normal. Systolic murmur heard in the aortic area Respiratory: B/l equal air entry with coarse BS. severely elevated peak pressures 40s on prvc. Abdomen: Soft, nontender, nondistended. No peritoneal signs. Musculoskeletal: No gross deformities. No edema. Skin: No obvious rashes or erythema. Neuro: Sedated. Withdraws extremities to pain. Moves all extremities spontaneously on sedation lightening A/P Assessment and Plan NEURO: -Monitor neuro status -On Diprivan and Fentanyl infusion for sedation and vent synchrony. Daily sedation vacation. RESP: Acute hypoxemic respiratory failure ARDS Pneumococcal pneumonia COPD exacerbation -On PRVC/AC RR 16, TV 550, PEEP:10, FIO2 70%., IT:0.9. decrease TV to mitigate severely elevated peak pressures and avoid barotrauma. recheck abg. -Continue with vent support keep sat >90% -Bronchodilators. Solu-Medrol 40mg IV daily -/ CTA chest - no PE CV: Severe aortic stenosis CHF NSTEMI -Monitor HR and BP keep MAP>65mmHg -Continue aspirin, Coreg 6.25mg BID, -hold Hydralazine 50mg Q8 given borderline pressures. -Echo showed EF 50-55%, mod-severe -Cardiothoracic surgery and cardiology Dr. Dudley is following -LHC on hold due to resp failure and renal failure- discussed with Dr. Dudley. GI: -Elevated LFT's..trending down -On Glucerna 1.5@45ml/hr. -Protonix for GI prophylaxis -Monitor LFT's ( trending down) -US abdomen: Chronic liver disease. Splenomegaly Mild to moderate ascites Mildly thickened gallbladder wall without evidence of gallstones. No evidence of hydronephrosis. : Acute kidney injury. Hyponatremia.. resolved -Monitor renal function, I/O's, avoid nephrotoxins. -Renal- Dr. Roa. Renal US: No hydronephrosis -On Bumex 2mg BID -daily BMP -add diamox 500mg iv q8hr x 3 doses. ID: Severe Sepsis Pneumococcal pneumonia -Off abx per ID -Sputum culture positive for strep pneumo. Influenza negative -new fever concerning given persistence of multiorgan system dysfunciton. re- jensen culture. wbc normal. will avoid re-exposure to abx unless patient clinically declines. HEME: -Monitor CBC, CMP, coags. Hep PLT ab positive, TIGIST negative, Heme is following ENDO: Type 2 diabetes Hypothyroidism -On high scale SSI for glycemic control. Levemir 14u Q12, taper steroids -Continue Synthroid 50 mcg daily. TSH: 0.373 PROPH: -Bilateral lower extremity SCDs. Protonix for GI prophylaxis. Heparin SQ on hold for thrombocytopenia LINES: -Utilize peripheral IVs, OVERALL IMPRESSION: 71yM with severe acute hypoxic and hypercarbic respiratory failure with little to no improvement after a lengthy mechanical ventilation. volume overload persists and now new fever. Aortic stenosis makes hemodynamics and additional cardiovascular optimization difficult and the combination of these organ dysfunctions may ultimately lead to his during this hospital stay. very critically ill at this time. This patient remains critically ill with one or more organ systems which are or may become a threat to life. I have spent in excess of 49 minutes discontinuously in the care and management of this patient. This time is exclusive of procedures, and includes, but is not limited to, evaluation of the patient, review of the medical record, discussions with family, consultants, nursing staff, or respiratory therapy, and documentation in the medical record. Ed Cohen MD Sep 18, 2016 16:47
[2016-09-18 19:08] LABS: BLOOD GAS BASE EXCESS 10.6 mmol/L (-2-2); BLOOD GAS HCO3 36 mmol/L (22-26); BLOOD GAS O2 HGB SATURATION 95 % (90-100); BLOOD GAS OXYGEN CONTENT 15.7 Vol % (12.0-20.0); BLOOD GAS PCO2 58 mmHg (38-42); BLOOD GAS PO2 110 mmHg (61-120); BLOOD GAS TOTAL HGB 11.6 G/DL (12.0-16.0); CRITICAL VALUE YES; OXYGEN DEVICE VENTILATOR; TEMP CORR TO 98.6
[2016-09-18 19:09] LABS: DRAW SITE LT RADIAL; FIO2 55 %; NUMBER OF ARTERIAL PUNCTURES 1; STAT NO; VENT SETTINGS SEE COMMENTS
[2016-09-18 19:42] LABS: BLOOD, URINE NEG (NEG); GLUCOSE,URINE NEG (NEG); HYALINE CAST, URINE 4 /lpf (RARE); KETONE, URINE NEG (NEG); MUCUS URINE FEW /lpf (OCC); NITRITE,URINE NEG (NEG); URINE COLOR YELLOW (YELLW/STRAW)
[2016-09-18 19:44] LABS: COMMENT (UR) CATH-CULT NOT IND; CULTURE IF INDICATED CATH CULTURE NOT IND
[2016-09-18] MEDS: traZODone HCL 100 MG TAB PO SCH (20:41)
[2016-09-19] VITALS (19 sets, daily range): BP systolic 93–107; BP diastolic 50–54; PULSE 61–70; RESP 20–24; TEMP 96.8–99; O2SAT 94–98
[2016-09-19] MEDS: PROPOFOL 1000 MG/100 ML INJ 100 ML IV SCH ×3 (01:26→18:30)
[2016-09-19] MEDS: INSULIN NovoLIN REGULAR SUPPLEMENTAL SCALE SQ SCH ×4 (04:36→21:52)
[2016-09-19 04:48] LABS: BLOOD GAS CARBOXYHEMOGLOBIN 2.3 % (0-4); BLOOD GAS HCO3 36 mmol/L (22-26); BLOOD GAS METHEMOGLOBIN 0.9 % (0-2); BLOOD GAS O2 HGB SATURATION 92 % (90-100); BLOOD GAS OXYGEN CONTENT 11.1 Vol % (12.0-20.0); BLOOD GAS PCO2 62 mmHg (38-42); BLOOD GAS PO2 80 mmHg (61-120); BLOOD GAS TOTAL HGB 8.5 G/DL (12.0-16.0); TEMP CORR TO 98.6
[2016-09-19 04:49] LABS: CRITICAL VALUE YES; OXYGEN DEVICE VENTILATOR
[2016-09-19 04:51] LABS: DRAW SITE RT RADIAL; FIO2 55 %; NUMBER OF ARTERIAL PUNCTURES 1; STAT NO; ULNAR PULSE PRESENT; VENT SETTINGS PRVC/AC
[2016-09-19] MEDS: PANTOPRAZOLE SODIUM 40 MG VIAL IV PUSH SCH ×2 (05:36→18:05)
[2016-09-19] MEDS: LEVOTHYROXINE SODIUM 50 MCG TAB PO SCH (05:36)
[2016-09-19 05:41] LABS: AUTOMATED NEUTROPHIL # 4.6 TH/MM3 (1.8-7.7); BASOPHIL % 0.6 % (0.0-2.0); EOSINOPHIL % 0.6 % (0.0-4.0); HEMATOCRIT 25.4 % (39.0-51.0); LYMPH % 15.2 % (9.0-44.0); LYMPHOCYTE # 0.9 TH/MM3 (1.0-4.8); MEAN CELL VOLUME 87.3 FL (80.0-100.0); MEAN CORPUSCULAR HEMOGLOBIN 27.5 PG (27.0-34.0); MEAN CORPUSCULAR HGB CONC 31.5 % (32.0-36.0); MONO % 6.7 % (0.0-8.0); NEUT % 76.9 % (16.0-70.0); PLATELET COUNT 62 TH/MM3 (150-450); RED CELL DISTRIBUTION WIDTH 17.4 % (11.6-17.2)
[2016-09-19 05:57] LABS: HEMO FLAGS DIFF FINAL
[2016-09-19 06:08] LABS: ALT (GPT) 22 U/L (12-78); ANION GAP 7 MEQ/L (5-15); AST (GOT) 24 U/L (15-37); BICARBONATE 38.9 MEQ/L (21.0-32.0); BLOOD UREA NITROGEN 81 MG/DL (7-18); CHLORIDE 103 MEQ/L (98-107); GLOMERULAR FILTRATION RATE 46 ML/MIN (>89); MAGNESIUM 2.8 MG/DL (1.5-2.5); POTASSIUM 3.9 MEQ/L (3.5-5.1); SODIUM (NA) 149 MEQ/L (136-145)
[2016-09-19 06:10] LABS: ALKALINE PHOSPHATASE 290 U/L (45-117); TOTAL BILIRUBIN ADULT 0.4 MG/DL (0.2-1.0)
[2016-09-19 06:12] LABS: APTT (PATIENT) 26.4 SEC (24.3-30.1); INTERNATIONAL NORMALIZED RATIO 1.1 RATIO; PROTHROMBIN TIME - PATIENT 11.9 SEC (9.8-11.6)
[2016-09-19] MEDS: CHLORHEXIDINE 0.12% (ORAL KIT) 15 ML CUP MT SCH ×2 (09:36→21:53)
[2016-09-19] MEDS: methylPREDNISolone SOD SUCC 40 MG/1 ML VIAL IV SCH (09:40)
[2016-09-19] MEDS: BUMETANIDE INJ 1 MG/4 ML VIAL IV PUSH SCH ×3 (09:41→18:04)
[2016-09-19] MEDS: CARVEDILOL 6.25 MG TAB PO SCH ×2 (09:41→21:52)
[2016-09-19] MEDS: FERROUS SULFATE 300 MG /5ML UDC PO SCH ×2 (09:41→21:52)
[2016-09-19] MEDS: ASPIRIN 81 MG CHEW TAB PO SCH (09:41)
[2016-09-19] MEDS: PRIMIDONE 50 MG TAB PO SCH ×3 (09:42→18:05)
[2016-09-19] MEDS: PRAVASTATIN SOD 40 MG TAB PO SCH (09:42)
[2016-09-19] MEDS: DOCUSATE SODIUM 50 MG/SENNA 8.6 MG TAB PO SCH (09:42)
[2016-09-19] MEDS: SERTRALINE HCL 50 MG TAB PO SCH (09:42)
[2016-09-19] MEDS: INSULIN DETEMIR 100 UNITS/ML VIAL SQ SCH ×2 (09:43→21:51)
[2016-09-19] MEDS: SODIUM CHLORIDE 0.9% FLUSH 5 ML FLUSH IVF PRN ×3 (10:10→18:05)
--- NOTE | 2016-09-19 10:34 | HHI.FPPN ---
Subjective Remarks Patient remains critically ill. Intubated and sedated. Family at bedside. Questions answered. (Sae Perry MD R2) Objective Vitals Vital Signs Date Time Temp Pulse Resp B/P Pulse Ox O2 Delivery O2 Flow Rate FiO2 09/19/16 10:05 95 45 09/19/16 07:56 98 50 09/19/16 04:16 96 55 09/19/16 04:00 55 09/19/16 04:00 Mechanical Ventilator 55 09/19/16 04:00 99.0 63 24 104/53 96 09/19/16 01:20 95 55 09/19/16 00:00 98.6 66 24 107/53 96 09/19/16 00:00 Mechanical Ventilator 55 09/19/16 00:00 55 09/18/16 22:18 95 55 09/18/16 20:00 Mechanical Ventilator 55 09/18/16 20:00 73 09/18/16 20:00 55 09/18/16 20:00 98.8 73 24 108/54 97 09/18/16 19:35 98 55 09/18/16 18:04 79 09/18/16 17:30 96 55 09/18/16 17:30 55 09/18/16 16:45 102.2 78 24 105/52 95 09/18/16 16:17 95 Mechanical Ventilator 55 09/18/16 16:16 55 09/18/16 16:14 77 09/18/16 16:01 95 55 09/18/16 14:00 74 09/18/16 12:36 100.6 72 20 101/51 95 09/18/16 12:26 55 09/18/16 12:26 96 Mechanical Ventilator 55 09/18/16 12:25 72 09/18/16 11:57 95 55 I/O 09/18/16 09/18/16 09/18/16 09/19/16 09/19/16 09/19/16 07:00 15:00 23:00 07:00 15:00 23:00 Intake Total 735 ml 622 ml 636 ml 325 ml Output Total 600 ml 750 ml 950 ml Balance 135 ml -128 ml -314 ml 325 ml IV Total 290 ml 273 ml 276 ml 167 ml Tube Feeding 405 ml 349 ml 360 ml 158 ml Tube Irrigant 40 ml Output Urine Total 600 ml 750 ml 950 ml Stool Total 0 ml # Bowel Movements 0 1 (Sae Perry MD R2) Result Diagram: 09/19/16 0508 09/19/16 0508 Objective Remarks Gen.: Lying in bed, intubated, sedated Head: Normocephalic. Atraumatic. EENT: Pupils equal round and reactive to light. Nose without drainage. Airway intact. Cardiovascular: Regular rate and rhythm. 2/6 systolic ejection murmur along left sternal border. Respiratory: CTAB bilaterally Abdomen: Soft, nontender, nondistended. No peritoneal signs. Musculoskeletal: No gross deformities. No edema. Skin: No obvious rashes or erythema. Neuro: Intubated, sedated (Sae Perry MD R2) A/P Assessment and Plan 71-year-old male who presented with a 5-day history of shortness of breath and nonproductive cough. ACS rule out positive for NSTEMI. Patient has a history of COPD and was admitted with sepsis with cardiology consultation for NSTEMI. Developed respiratory distress on 09/04 and was transferred to the ICU with critical care consult. Tolerated BiPAP vs nonrebreather vs nasal cannula for several days, but due to worsening respiratory distress, he was intubated on 09/12. Cardiology to perform left heart catheterization when clinically better. Pulmonology on board. Nephrology consulted for PHILIPPE. Hematology consulted due to thrombocytopenia. Discharge Planning Pending clinical improvement (Sae Perry MD R2) Attending Attestation Patient seen and examined. Case reviewed and discussed. Agree with plan of care as discussed with me and documented in the resident note. (She Harris MD) Problem List: (1) ARDS (adult respiratory distress syndrome) Status: Acute Plan: Intubated and sedated in the ICU -Critical care managing - will follow recs -Consider placing in a prone bed -Decrease FIO2 as tolerated -Daily sedation vacation -Steroids per critical care -DuoNebs every 6 hours -I's and O's -Daily weights (2) NSTEMI (non-ST elevated myocardial infarction) Status: Acute Plan: -Patient with elevated troponins to 1.[address] elevations in V1 V3 on admission -Cardiology signed off - may reconsult after clinical improvement -Left heart catheter when clinically able to tolerate procedure -Continue medical management (3) Aortic stenosis Status: Acute Plan: -Cardiothoracic surgery consulted -Cardiology and cardiothoracic surgery to discuss plans going forward -Will need to optimize medical management prior to performing any procedures -Pulmonology consulted given high surgical risk- appreciate recommendations (4) Pneumonia Status: Resolved Plan: -Strep pneumoniae in sputum culture -Ceftarolin 300 mg IV discontinued -Pt has been afebrile with no elevated WBC count -Procalcitonin wnl on 09/15 -Infectious disease has signed off (5) CHF due to valvular disease Status: Acute Plan: Echo performed on 09/02 showed EF of 5055 percent. -Aortic valve with moderate to severe stenosis -Coreg 3.125 mg by mouth every 12 hours (6) PHILIPPE (acute kidney injury) Status: Acute Plan: Stable -Nephrology on board -Monitor I's and O's -Avoid nephrotoxins -Off Bumex drip -Increase intermittent Bumex to 2 mg IV TID (7) Thrombocytopenia Status: Acute Plan: Stable -Transfuse for platelets less than 20K -Decreased aspirin to 81mg daily, discontinue for platelets less than 40K -Hematology consulted -Suspect due to DIC/Consumption--fibrinogen preserved -Heparin subcutaneous discontinued -HIT positive, but likely false positive, TIGIST wnl and result does not support HIT -Hepatitis panel negative -Abdominal ultrasound on 09/07 shows heterogeneous hepatic echo texture consistent with chronic liver disease, splenomegaly, mild to moderate ascites -Continue to monitor daily CBC (8) Diabetes Status: Chronic Plan: Patient's home regimen is NPH 25 units every morning and 50 units daily at bedtime -Intubated, on Glucerna tube feeds -Currently on Levemir 14 units twice a day per critical care -Continue high scale SSI -Taper steroids -Adjust insulin regimen as needed (9) COPD exacerbation Status: Acute Plan: Patient with known COPD and [id number] history of smoking Albuterol every 2 hours when necessary DuoNeb nebs every 4 hours scheduled Solu-Medrol 40 mg every 12 hours (10) Hypertension Status: Chronic Plan: Continue Coreg. Hydralazine when necessary. Continue losartan (11) Anxiety and depression Status: Chronic Plan: -Continue home meds on adjusted regimen -Trazodone 100 mg by mouth daily - -Sertraline 100 mg by mouth daily - taper to 50mg -Buspirone 10mg BID - hold -Primidone 100mg PO BID - continue (12) FEN/DVT PPX/GI PPX Status: Acute Plan: Fluids: per CC Electrolytes: Will monitor and replace as needed Nutrition: Tube feeds, Glucerna DVT Prophylaxis: Bilateral SCDs, heparin discontinued due to thrombocytopenia GI Prophylaxis: None currently (Sae Perry MD R2) Problem Qualifiers (1) Aortic stenosis: Qualified Code: I35.0 - Aortic valve stenosis, unspecified etiology (2) Pneumonia: Qualified Code: J18.9 - Pneumonia of both lungs due to infectious organism, unspecified part of lung (3) Diabetes: (4) Hypertension: Qualified Code: I10 - Essential hypertension Sae Perry MD R2 Sep 19, 2016 10:34 She Harris MD Sep 23, 2016 17:42
--- NOTE | 2016-09-19 12:10 | HHI.NPPN ---
Subjective Complaints: Confused, Shortness of Breath General Problems: Edema Renal Failure: Chronic, Acute Additional Remarks Patient remains intubated, sedated. No signs of distress Review of Systems General General Remarks unable to evaluate Objective Data Data 09/18/16 09/19/16 19:00 07:00 Intake Total 622 ml 961 ml Output Total 750 ml 950 ml Balance -128 ml 11 ml IV Total 273 ml 443 ml Tube Feeding 349 ml 518 ml Output Urine Total 750 ml 950 ml # Bowel Movements 1 Vital Signs Date Time Temp Pulse Resp B/P Pulse Ox O2 Delivery O2 Flow Rate FiO2 09/19/16 10:05 95 45 09/19/16 10:00 61 09/19/16 08:00 61 09/19/16 08:00 96.9 61 20 93/51 97 09/19/16 08:00 45 09/19/16 08:00 Mechanical Ventilator 45 09/19/16 07:56 98 50 09/19/16 04:16 96 55 09/19/16 04:00 55 09/19/16 04:00 Mechanical Ventilator 55 09/19/16 04:00 99.0 63 24 104/53 96 09/19/16 01:20 95 55 09/19/16 00:00 98.6 66 24 107/53 96 09/19/16 00:00 Mechanical Ventilator 55 09/19/16 00:00 55 09/18/16 22:18 95 55 09/18/16 20:00 Mechanical Ventilator 55 09/18/16 20:00 73 09/18/16 20:00 55 09/18/16 20:00 98.8 73 24 108/54 97 09/18/16 19:35 98 55 09/18/16 18:04 79 09/18/16 17:30 96 55 09/18/16 17:30 55 09/18/16 16:45 102.2 78 24 105/52 95 09/18/16 16:17 95 Mechanical Ventilator 55 09/18/16 16:16 55 09/18/16 16:14 77 09/18/16 16:01 95 55 09/18/16 14:00 74 09/18/16 12:36 100.6 72 20 101/51 95 09/18/16 12:26 55 09/18/16 12:26 96 Mechanical Ventilator 55 09/18/16 12:25 72 -: 09/19/16 0508 09/19/16 0508 Microbiology 09/18/16 Gram Stain - Final, Resulted 09/18/16 Sputum Culture, Resulted Pending 09/18/16 Aerobic Blood Culture - Preliminary, Resulted NO GROWTH IN 1 DAY 09/18/16 Anaerobic Blood Culture - Preliminary, Resulted NO GROWTH IN 1 DAY 09/18/16 Aerobic Blood Culture - Preliminary, Resulted NO GROWTH IN 1 DAY 09/18/16 Anaerobic Blood Culture - Preliminary, Resulted NO GROWTH IN 1 DAY Tubes & Lines: Ortega Drip Comment fentanyl, propofol Physical Exam General Appearance: Well Developed, Well Nourished, No Acute Distress Throat Throat Exam: Oral Mucosa [place] & Moist Pulmonary Resp Exam: Breath Sounds Equal, Crackles, Decreased Bases Cardiology CV Exam: Regular, Good Perfusion Gastrointestinal/Abdomen GI Exam: Soft, Non-Tender, Bowel Sounds Present Genitourinary Exam: Clear Urine Musculoskeletal MS Exam: Joints Intact, Normal Gait, Normal Tone Integumentary Skin Exam: Clear, Warm, Dry, Intact, Tenting Extremeties Extremities Exam: Pedal Pulses Palpable, Moderate Edema Neurologic Neuro Exam: Unresponsive, Sedated Psychiatric Psych Exam: Appropriate Responses Assessment/Plan Discussed Condition With: Spouse, Relative Assessment Summary: PHILIPPE/Acute Renal Failure Problem List: (1) PHILIPPE (acute kidney injury) Plan: initial ARF due to ATN, secondary to renal hypoperfusion injury (sepsis , hypotension, A fib RVR); that had resolved renal function has improved off IVF, On Bumex 2 mg IV TID. Diamox added today for further diuresis to assist with ventilation, alkalosis. Continue to monitor creatinine, 1.7 L UOP over 24 hours. follow electrolytes, replace as needed BUN high, may be due to steroids avoid nephrotoxins, heart cath on hold ortega in place for I/O measurement daily renal panel (2) Congestive heart failure (CHF) Plan: monitor fluid volume status diuresis as above (3) Diabetes Plan: continue insulin therapy monitor glucose, goal 140-180 mg/dL (4) Hypertension Plan: previously on pressors BP stable, continue antihypertensives (5) Severe sepsis Plan: previously being treated for strep pneumonia now with ARDS type presentation, 02 requirement now at 50% ID following, back on Ceftaroline WBC normalized (6) Aortic stenosis Plan: cardiology signed off until he is extubated plan for heart cath if clinically improved (7) A-fib Plan: off Amiodarone gtt rate controlled Problem Qualifiers (1) Congestive heart failure (CHF): (2) Diabetes: (3) Hypertension: Qualified Code: I10 - Essential hypertension (4) Aortic stenosis: Qualified Code: I35.0 - Aortic valve stenosis, unspecified etiology (5) A-fib: Qualified Code: I48.91 - Atrial fibrillation, unspecified type Bonifacio Gonzales MD Sep 19, 2016 12:10 Bonifacio Gonzales MD Sep 19, 2016 12:10
[2016-09-19] MEDS: FREE WATER G-TUBE SCH ×2 (12:44→18:04)
--- NOTE | 2016-09-19 13:03 | HHI.CCPN ---
Subjective Remarks/Hospital Course The patient is a 71-year-old male with past medical history significant for COPD, aortic stenosis, hypertension and diabetes who presented to the emergency department with progressive shortness of breath and nonproductive cough for last 5 days. He was diagnosed and admitted to service on with [id number] DC, COPD exacerbation and probable pneumonia. He had a previous heart catheterization in 2014, was told at that time he needed to have aortic valve replacement. He was started on IV antibiotics with Rocephin and azithromycin and also was placed on IV steroids and DuoNeb breathing treatment for probable COPD exacerbation. All the cultures so far negative, also negative for influenza A and B, negative for Streptococcus and Legionella antigen. Cardiology was consulted, and echo showed moderate to severe aortic stenosis. Cardiothoracic surgery was also consulted and is following, plan for cardiac catheterization this Tuesday. A Halicat was called today as the patient was increasingly lethargic with increased dyspnea and hypoxia. He desaturated to the 70% when RN attempted to move him. Chest x-ray showed bilateral pulmonary edema worsening compared to admission. He was moved to the ICU and critical care medicine was consulted. I evaluated the patient in ICU. He is tachypneic on 100% nonrebreather. Examination revealed bilateral crackles. 60 mg of IV Lasix stat given and patient was ordered to be placed on BiPAP at 06/16. BNP was 658 SUBJECT 09/05/16: Patient did not tolerate BiPAP overnight. Currently remains on partial nonrebreather. Urine output more than 6 L in 24 hours. He developed atrial flutter with RVR, was placed on esmolol which I have changed to Cardizem. Chest x-ray shows interval improvement in my review 09/06/16: Remains on pNRB. sputum cx with strep pneumo. Urine out put diminishing. 1L bolus given with adequate response. Bilateral lung infiltrate. Discussed with Dr. Dudley. Will hold off cath until Reps failure/ALI improves and renal failure improves 09.07 Patient is on BIPAP 06/16 with FIO2 65%. Afebrile. 09/08 Patient is off BIPAP on Bumex drip 2mg/hr with UO 7.6L in 24 hrs. Afebrile feeling better. Renal function improving with Cr 1.52 from 2.07. 09/09 Patient is on partial rebreather with good sats. Afebrile. Renal function improving with Cr: 1.09 from 1.52. Remains on Bumex drip down 0.5mg/hr. 09/10 Patient was placed on Amio drip yesterday . Afebrile. Off Bumex drip. 09/11 No acute events overnight. Remains on Amio drip. On partial rebreather. CT chest last night showed no PE. 09/12 No acute events overnight. Remains on partial rebreather, off Amio drip. Afebrile. 09/13 Patient was intubated yesterday for resp distress and hypoxemia. Sedated with Diprivan and Fentanyl. Afebrile. On PRVC/AC RR 18, TV 550, PEEP: 10, FIO2 60%. 09/14 Patient is sedated with Diprivan and Fentanyl. Off Bumex drip, afebrile. Cr 1.53 today from 1.41. 09/15: Remains sedated. FiO2 70% with PEEP of 10. CXR unchanged. Creat 1.57. CXR remains same with bilateral infiltrates 09/16: Remains intubated sedated. FiO2 at 50% with a PEEP of 12. Chest x-ray unchanged to slightly improved. Urine output 2.4 L in 24 hours after starting Bumex 2 mg IV every 12 yesterday by nephrology. Creatinine stable to slightly improved 09/17 Patient is sedated with Diprivan/Fentanyl and intubated. On PRVC/AC RR 20 , TV 550, IT:0.9, PEEP:12, FIO2 50%. Afebrile. 09/18: very high peak pressures in the 40s despite conservative PRVC settings. still grossly volume overloaded. also spiked new fever to 102 today, off abx. minimal secretions. very critically ill. 09/19: peak pressures slightly improved. no significant improvement in overall function. still volume overloaded. no longer febrile. sputum gram stain rare GPCs, but this was the same as the last gram stain on 09/13 which did not grow any single bacterial strain. Objective Vital Signs Date Time Temp Pulse Resp B/P Pulse Ox O2 Delivery O2 Flow Rate FiO2 09/19/16 12:00 94 Mechanical Ventilator 45 09/19/16 12:00 66 09/19/16 12:00 96.8 20 98/54 3/11/17 04:00 15.00 Intake and Output 09/18/16 09/18/16 09/19/16 08:00 16:00 00:00 Intake Total 735 ml 622 ml 636 ml Output Total 600 ml 750 ml 950 ml Balance 135 ml -128 ml -314 ml Result Diagram: 09/19/16 0508 09/19/16 0508 Other Results Laboratory Tests Test 09/18/16 09/19/16 18:50 03:32 Blood Gas Puncture Site LT RADIAL RT RADIAL Blood Gas Patient Temperature 98.6 98.6 Blood Gas HCO3 36 mmol/L 36 mmol/L (22-26) (22-26) Blood Gas Base Excess 10.6 mmol/L 11.0 mmol/L (-2-2) (-2-2) Blood Gas Oxygen Saturation 95 % (90-100) 92 % (90-100) Arterial Blood pH 7.41 7.39 (7.380-7.420) (7.380-7.420) Arterial Blood Partial 58 mmHg (38-42) 62 mmHg (38-42) Pressure CO2 Arterial Blood Partial 110 mmHg 80 mmHg Pressure O2 (61-120) (61-120) Arterial Blood Oxygen Content 15.7 Vol % 11.1 Vol % (12.0-20.0) (12.0-20.0) Arterial Blood 2.0 % (0-4) 2.3 % (0-4) Carboxyhemoglobin Arterial Blood Methemoglobin 1.0 % (0-2) 0.9 % (0-2) Blood Gas Hemoglobin 11.6 G/DL 8.5 G/DL (12.0-16.0) (12.0-16.0) Oxygen Delivery Device VENTILATOR VENTILATOR Blood Gas Ventilator Setting SEE COMMENTS PRVC/AC Blood Gas Inspired Oxygen 55 % 55 % Imaging Last Impressions Chest X-Ray 09/16/16 0600 Signed Impressions: Service Date/Time: September 05:38 - CONCLUSION: 1. Stable patchy, bilateral airspace disease with interstitial prominence. 2. Improving left sided effusion. 3. Stable position of life support tubes. Delfino Sylvester MD Lower Extremity Ultrasound 09/11/16 0000 Signed Impressions: Service Date/Time: Sunday, September 11, 2016 12:30 - CONCLUSION: No DVT is identified within either lower extremity. Frank Young MD CT Angiography 09/10/16 0000 Signed Impressions: Service Date/Time: Sunday, September 11, 2016 01:05 - CONCLUSION: No evidence of pulmonary embolism. Frank Hardin MD Abdomen Ultrasound 09/07/16 0000 Signed Impressions: Service Date/Time: Wednesday, September 07, 2016 16:45 - CONCLUSION: Heterogeneous hepatic echotexture consistent with chronic liver disease. Splenomegaly Mild to moderate ascites Mildly thickened gallbladder wall without evidence of gallstones. No evidence of hydronephrosis. Isidro Oliver MD Upper Extremity Ultrasound 09/06/16 0000 Signed Impressions: Service Date/Time: Tuesday, September 06, 2016 20:43 - CONCLUSION: No evidence of DVT. Isidro Oliver MD Chest CT 09/05/16 0000 Signed Impressions: Service Date/Time: Monday, September 05, 2016 15:37 - CONCLUSION: 1. Cardiomegaly with diffuse ground glass densities and consolidation likely pulmonary edema and/or pneumonia. 2. Small bilateral pleural effusions. 3. Prominent lymphadenopathy in the mediastinum. Cameron Archer MD Objective Remarks Gen: 71-year-old male lying in bed intubated and sedated. Head: Normocephalic. Atraumatic. EENT: Pupils equal round and reactive to light. Cardiovascular: S1-S2 normal. Systolic murmur heard in the aortic area Respiratory: B/l equal air entry with coarse BS. severely elevated peak pressures 40s on prvc. Abdomen: Soft, nontender, nondistended. No peritoneal signs. Musculoskeletal: No gross deformities. No edema. Skin: No obvious rashes or erythema. Neuro: Sedated. Withdraws extremities to pain. Moves all extremities spontaneously on sedation lightening A/P Assessment and Plan NEURO: -Monitor neuro status -On Diprivan and Fentanyl infusion for sedation and vent synchrony. Daily sedation vacation. RESP: Acute hypoxemic respiratory failure ARDS Pneumococcal pneumonia COPD exacerbation -On PRVC/AC RR 16, TV 440, PEEP:10, FIO2 40%., IT:0.9. continue to wean as tolerated. -Continue with vent support keep sat >90% -Bronchodilators. Solu-Medrol 40mg IV daily -09/10 CTA chest - no PE CV: Severe aortic stenosis CHF NSTEMI -Monitor HR and BP keep MAP>65mmHg -Continue aspirin, Coreg 6.25mg BID, -hold Hydralazine 50mg Q8 given borderline pressures. -Echo showed EF 50-55%, mod-severe -Cardiothoracic surgery and cardiology Dr. Dudley is following -C on hold due to resp failure and renal failure- discussed with Dr. Dudley. GI: -Elevated LFT's..trending down Hypernatremia -On Glucerna 1.5@45ml/hr. -Protonix for GI prophylaxis -Monitor LFT's ( trending down) -US abdomen: Chronic liver disease. Splenomegaly Mild to moderate ascites Mildly thickened gallbladder wall without evidence of gallstones. No evidence of hydronephrosis. -add free water 300 q6h to help with hypernatremia. : Acute kidney injury. Hyponatremia.. resolved -Monitor renal function, I/O's, avoid nephrotoxins. -Renal- Dr. Roa. Renal US: No hydronephrosis -On Bumex 2mg BID. per nephrology could consider increasing this, but will wait to see what GFR trend is tomorrow. -daily BMP ID: Severe Sepsis Pneumococcal pneumonia -Off abx per ID -Sputum culture positive for strep pneumo. Influenza negative -new cultures 09/18 NGTD. still holding off on abx. HEME: -Monitor CBC, CMP, coags. Hep PLT ab positive, TIGIST negative, Heme is following ENDO: Type 2 diabetes Hypothyroidism -On high scale SSI for glycemic control. Levemir 14u Q12, taper steroids -Continue Synthroid 50 mcg daily. TSH: 0.373 PROPH: -Bilateral lower extremity SCDs. Protonix for GI prophylaxis. Heparin SQ on hold for thrombocytopenia LINES: -Utilize peripheral IVs, OVERALL IMPRESSION: 71yM with severe acute hypoxic and hypercarbic respiratory failure with little to no improvement after a lengthy mechanical ventilation. volume overload persists. Aortic stenosis makes hemodynamics and additional cardiovascular optimization difficult and the combination of these organ dysfunctions may ultimately lead to his during this hospital stay. Ed Cohen MD Sep 19, 2016 13:03
--- NOTE | 2016-09-19 15:13 | HHI.PR ---
Subjective Remarks 71 YOWM with Resp insuf, COPD,Lung infilt No fever Pt intubated On AC 16,Fi02 50% Sedated Objective Vital Signs Vital Signs Date Time Temp Pulse Resp B/P Pulse Ox O2 Delivery O2 Flow Rate FiO2 09/19/16 14:05 50 09/19/16 14:01 67 09/19/16 12:58 95 50 09/19/16 12:00 94 Mechanical Ventilator 45 09/19/16 12:00 45 09/19/16 12:00 66 09/19/16 12:00 96.8 65 20 98/54 94 09/19/16 10:05 95 45 09/19/16 10:00 61 09/19/16 08:00 61 09/19/16 08:00 96.9 61 20 93/51 97 09/19/16 08:00 45 09/19/16 08:00 Mechanical Ventilator 45 09/19/16 07:56 98 50 09/19/16 04:16 96 55 09/19/16 04:00 55 09/19/16 04:00 Mechanical Ventilator 55 09/19/16 04:00 99.0 63 24 104/53 96 09/19/16 01:20 95 55 09/19/16 00:00 98.6 66 24 107/53 96 09/19/16 00:00 Mechanical Ventilator 55 09/19/16 00:00 55 09/18/16 22:18 95 55 09/18/16 20:00 Mechanical Ventilator 55 09/18/16 20:00 73 09/18/16 20:00 55 09/18/16 20:00 98.8 73 24 108/54 97 09/18/16 19:35 98 55 09/18/16 18:04 79 09/18/16 17:30 96 55 09/18/16 17:30 55 09/18/16 16:45 102.2 78 24 105/52 95 09/18/16 16:17 95 Mechanical Ventilator 55 09/18/16 16:16 55 09/18/16 16:14 77 09/18/16 16:01 95 55 I/O 09/18/16 09/18/16 09/18/16 09/19/16 09/19/16 09/19/16 07:00 15:00 23:00 07:00 15:00 23:00 Intake Total 735 ml 622 ml 636 ml 325 ml 605 ml Output Total 600 ml 750 ml 950 ml 775 ml Balance 135 ml -128 ml -314 ml 325 ml -170 ml IV Total 290 ml 273 ml 276 ml 167 ml 261 ml Tube Feeding 405 ml 349 ml 360 ml 158 ml 344 ml Tube Irrigant 40 ml Output Urine Total 600 ml 750 ml 950 ml 775 ml Stool Total 0 ml # Bowel Movements 0 1 Result Diagram: 09/19/16 0508 09/19/16 0508 Objective Remarks GENERAL: Obese WM, mild sob SKIN: Warm and dry. HEAD: Normocephalic. EYES: No scleral icterus. No injection or drainage. NECK: Supple, trachea midline. No JVD or lymphadenopathy. CARDIOVASCULAR: Regular rate and rhythm without murmurs, gallops, or rubs. RESPIRATORY: Breath sounds equal bilaterally. No accessory muscle use. GASTROINTESTINAL: Abdomen soft, non-tender, nondistended. MUSCULOSKELETAL: No cyanosis, or edema. BACK: Nontender without obvious deformity. No CVA tenderness. A/P Assessment and Plan Resp Failure, on Vent COPD Lung infilt DM Ch. Pain PLAN: Cont Abx IV Solumedrol Vent Support, AC16, Fi02 50% Aerosol nebs Monitor BS Monitor renal functions Kai Escobedo MD Sep 19, 2016 15:13
[2016-09-19] MEDS: fentaNYL DRIP 250 ML IV SCH (17:54)
[2016-09-19] MEDS: traZODone HCL 100 MG TAB PO SCH (21:52)
[2016-09-20] VITALS (19 sets, daily range): BP systolic 102–126; BP diastolic 51–61; PULSE 64–79; RESP 20; TEMP 98.1–99.6; O2SAT 94–100
[2016-09-20] MEDS: PROPOFOL 1000 MG/100 ML INJ 100 ML IV SCH ×3 (00:52→20:59)
[2016-09-20] MEDS: INSULIN NovoLIN REGULAR SUPPLEMENTAL SCALE SQ SCH ×7 (02:08→20:24)
[2016-09-20] MEDS: PANTOPRAZOLE SODIUM 40 MG VIAL IV PUSH SCH ×2 (04:10→18:02)
[2016-09-20] MEDS: FREE WATER G-TUBE SCH ×5 (04:11→20:24)
[2016-09-20] MEDS: LEVOTHYROXINE SODIUM 50 MCG TAB PO SCH (04:47)
[2016-09-20 05:55] LABS: AUTOMATED NEUTROPHIL # 3.8 TH/MM3 (1.8-7.7); BASOPHIL % 0.5 % (0.0-2.0); EOSINOPHIL % 0.4 % (0.0-4.0); HEMATOCRIT 25.8 % (39.0-51.0); LYMPH % 17.9 % (9.0-44.0); LYMPHOCYTE # 0.9 TH/MM3 (1.0-4.8); MEAN CELL VOLUME 88.3 FL (80.0-100.0); MEAN CORPUSCULAR HEMOGLOBIN 28.5 PG (27.0-34.0); MEAN CORPUSCULAR HGB CONC 32.3 % (32.0-36.0); MONO % 7.4 % (0.0-8.0); NEUT % 73.8 % (16.0-70.0); PLATELET COUNT 68 TH/MM3 (150-450); RED BLOOD COUNT 2.92 MIL/MM3 (4.50-5.90); WHITE BLOOD COUNT 5.2 TH/MM3 (4.0-11.0)
[2016-09-20 05:57] LABS: HEMO FLAGS AUTO DIFF
[2016-09-20 06:03] LABS: APTT (PATIENT) 26.3 SEC (24.3-30.1); PROTHROMBIN TIME - PATIENT 11.5 SEC (9.8-11.6)
[2016-09-20 06:07] LABS: BICARBONATE 38.2 MEQ/L (21.0-32.0); POTASSIUM 3.8 MEQ/L (3.5-5.1)
[2016-09-20 07:58] LABS: PLATELET ESTIMATE SMEAR LOW (NORMAL); PLATELET MORPHOLOGY NORMAL (NORMAL); SCAN/DIFF AUTO DIFF CONFIRMED
[2016-09-20] MEDS: FERROUS SULFATE 300 MG /5ML UDC PO SCH ×2 (09:14→20:25)
[2016-09-20] MEDS: BUMETANIDE INJ 1 MG/4 ML VIAL IV PUSH SCH ×3 (09:14→18:02)
[2016-09-20] MEDS: INSULIN DETEMIR 100 UNITS/ML VIAL SQ SCH ×2 (09:14→20:25)
[2016-09-20] MEDS: CARVEDILOL 6.25 MG TAB PO SCH ×2 (09:15→20:26)
[2016-09-20] MEDS: SERTRALINE HCL 50 MG TAB PO SCH (09:15)
[2016-09-20] MEDS: DOCUSATE SODIUM 50 MG/SENNA 8.6 MG TAB PO SCH (09:15)
[2016-09-20] MEDS: methylPREDNISolone SOD SUCC 40 MG/1 ML VIAL IV SCH (09:15)
[2016-09-20] MEDS: ASPIRIN 81 MG CHEW TAB PO SCH (09:15)
[2016-09-20] MEDS: PRIMIDONE 50 MG TAB PO SCH ×3 (09:15→18:02)
[2016-09-20] MEDS: PRAVASTATIN SOD 40 MG TAB PO SCH (09:15)
[2016-09-20] MEDS: SODIUM CHLORIDE 0.9% FLUSH 5 ML FLUSH IVF PRN ×2 (09:16→20:31)
--- NOTE | 2016-09-20 09:33 | HHI.NPPN ---
Subjective Complaints: Confused, Shortness of Breath General Problems: Edema Renal Failure: Chronic, Acute Interval History Family at bedside. He remains unresponsive on ventilator. Renal function is stable. (Prachi Palencia) Review of Systems General General Remarks unable to evaluate (Prachi Palencia) Objective Data Data 09/19/16 09/20/16 19:00 07:00 Intake Total 605 ml 1005 ml Output Total 775 ml 900 ml Balance -170 ml 105 ml IV Total 261 ml 404 ml Tube Feeding 344 ml 601 ml Output Urine Total 775 ml 900 ml # Bowel Movements 3 Vital Signs Date Time Temp Pulse Resp B/P Pulse Ox O2 Delivery O2 Flow Rate FiO2 09/20/16 08:04 94 45 09/20/16 06:00 64 09/20/16 04:19 98 50 09/20/16 04:00 100 Mechanical Ventilator 50 09/20/16 04:00 50 09/20/16 04:00 98.8 66 20 117/56 100 09/20/16 04:00 66 09/20/16 02:00 65 09/20/16 01:13 96 50 09/20/16 00:00 50 09/20/16 00:00 99 Mechanical Ventilator 50 09/20/16 00:00 98.2 64 20 102/51 99 09/20/16 00:00 70 09/19/16 22:15 97 50 09/19/16 22:00 67 09/19/16 20:00 67 09/19/16 20:00 98.4 67 20 104/54 96 09/19/16 20:00 50 09/19/16 20:00 96 Mechanical Ventilator 50 09/19/16 19:12 96 50 09/19/16 18:33 68 09/19/16 17:19 97 50 09/19/16 16:28 50 09/19/16 16:28 96 Mechanical Ventilator 45 09/19/16 16:26 97.2 69 20 101/50 96 09/19/16 16:25 70 09/19/16 14:05 50 09/19/16 14:01 67 09/19/16 12:58 95 50 09/19/16 12:00 94 Mechanical Ventilator 45 09/19/16 12:00 45 09/19/16 12:00 66 3/12/17 12:00 96.8 65 20 98/54 94 09/19/16 10:05 95 45 09/19/16 10:00 61 (Prachi Palencia) -: 09/20/16 0435 09/20/16 0435 Imaging Last 72 hours Impressions Chest X-Ray 09/18/16 0000 Signed Impressions: Service Date/Time: Sunday, September 18, 2016 02:48 - CONCLUSION: Persistent diffuse bilateral infiltrates. Nathan Todd MD Tubes & Lines: Ortega Drip Comment fentanyl, propofol (Prachi PalenciaP) Physical Exam General Appearance: Well Developed, Well Nourished, No Acute Distress Appearance Remarks intubated/sedated/unresponsive (Prachi Palencia) Throat Throat Exam: Oral Mucosa Ovid & Moist (Prachi Palencia BSean DAUGHERTY) Pulmonary Resp Exam: Breath Sounds Equal, Crackles, Decreased Bases (Prachi Palencia BSean SHAHIDP) Cardiology CV Exam: Regular, Good Perfusion (Prachi Palencia) Gastrointestinal/Abdomen GI Exam: Soft, Non-Tender, Bowel Sounds Present (Prachi Palencia) Genitourinary Exam: Clear Urine (Prachi Palencia) Musculoskeletal MS Exam: Joints Intact, Normal Gait, Normal Tone (Prachi Palencia) Integumentary Skin Exam: Clear, Warm, Dry, Intact (Prachi Palencia) Extremeties Extremities Exam: Pedal Pulses Palpable, Moderate Edema (Prachi Palencia) Neurologic Neuro Exam: Unresponsive, Sedated (Prachi Palencia BSean PRINTING AGENT) Psychiatric Psych Exam: Appropriate Responses (Prachi Palencia) Assessment/Plan Discussed Condition With: Spouse, Relative Assessment Summary: PHILIPPE/Acute Renal Failure Problem List: (1) PHILIPPE (acute kidney injury) Plan: ARF due to ATN, secondary to renal hypoperfusion injury (sepsis, hypotension, A fib RVR) renal function is stable non oliguric, monitor output being diuresed with Bumex 2 mg IV TID; sodium is elevated, on free water with tube feeding, give a dose of Diuril and monitor off IVF follow electrolytes, replace as needed BUN high, may be due to steroids avoid nephrotoxins, heart cath on hold ortega in place for I/O measurement daily renal panel (2) Congestive heart failure (CHF) Plan: monitor fluid volume status diuresis as above (3) Diabetes Plan: continue insulin therapy monitor glucose, goal 140-180 mg/dL (4) Hypertension Plan: previously on pressors BP stable, continue antihypertensives (5) Severe sepsis Plan: previously being treated for strep pneumonia now with ARDS type presentation, 02 requirement now at 45% ID following, off antibiotics WBC normalized (6) Aortic stenosis Plan: cardiology signed off until he is extubated plan for heart cath if clinically improved (7) A-fib Plan: off Amiodarone gtt rate controlled (Prachi Palencia) Plan patient was seen and examined. Renal function is about the same. Continue diuresis. He is not responsive. Remains on the ventilator. (Gentry Roa MD) Problem Qualifiers (1) Congestive heart failure (CHF): (2) Diabetes: (3) Hypertension: Qualified Code: I10 - Essential hypertension (4) Aortic stenosis: Qualified Code: I35.0 - Aortic valve stenosis, unspecified etiology (5) A-fib: Qualified Code: I48.91 - Atrial fibrillation, unspecified type Prachi Palencia Sep 20, 2016 09:33 Gentry Roa MD Sep 20, 2016 20:56
[2016-09-20] MEDS ORDERED: CHLOROTHIAZIDE SOD 500 MG VIAL IV ONE ×2 (09:45→10:45)
--- NOTE | 2016-09-20 09:46 | HHI.FPPN ---
Subjective Remarks Patient was seen this morning. Remains in the medical ICU, currently intubated and sedated. On sedation holidays though none overnight. He has been stable. No family present at This morning. Per nurse, overnight he had no major issues and did not have significant sputum production. (Corina Person MD R1) Objective Vitals Vital Signs Date Time Temp Pulse Resp B/P Pulse Ox O2 Delivery O2 Flow Rate FiO2 09/20/16 08:04 94 45 09/20/16 06:00 64 09/20/16 04:19 98 50 09/20/16 04:00 100 Mechanical Ventilator 50 09/20/16 04:00 50 09/20/16 04:00 98.8 66 20 117/56 100 09/20/16 04:00 66 09/20/16 02:00 65 09/20/16 01:13 96 50 09/20/16 00:00 50 09/20/16 00:00 99 Mechanical Ventilator 50 09/20/16 00:00 98.2 64 20 102/51 99 09/20/16 00:00 70 09/19/16 22:15 97 50 09/19/16 22:00 67 09/19/16 20:00 67 09/19/16 20:00 98.4 67 20 104/54 96 09/19/16 20:00 50 09/19/16 20:00 96 Mechanical Ventilator 50 09/19/16 19:12 96 50 09/19/16 18:33 68 09/19/16 17:19 97 50 09/19/16 16:28 50 09/19/16 16:28 96 Mechanical Ventilator 45 09/19/16 16:26 97.2 69 20 101/50 96 09/19/16 16:25 70 09/19/16 14:05 50 09/19/16 14:01 67 09/19/16 12:58 95 50 09/19/16 12:00 94 Mechanical Ventilator 45 09/19/16 12:00 45 09/19/16 12:00 66 09/19/16 12:00 96.8 65 20 98/54 94 09/19/16 10:05 95 45 09/19/16 10:00 61 I/O 09/19/16 09/19/16 09/19/16 09/20/16 09/20/16 09/20/16 07:00 15:00 23:00 07:00 15:00 23:00 Intake Total 325 ml 605 ml 566 ml 439 ml Output Total 775 ml 550 ml 350 ml Balance 325 ml -170 ml 16 ml 89 ml IV Total 167 ml 261 ml 242 ml 162 ml Tube Feeding 158 ml 344 ml 324 ml 277 ml Output Urine Total 775 ml 550 ml 350 ml # Bowel Movements 1 1 2 (Corina Person MD R1) Result Diagram: 09/20/1643409/20/16434 Objective Remarks Gen.: Lying in bed, intubated, sedated Head: Normocephalic. Atraumatic. EENT: Pupils equal round and reactive to light. Nose without drainage. Airway intact. Cardiovascular: Regular rate and rhythm. Systolic ejection murmur along left sternal border. Respiratory: CTAB bilaterally Abdomen: Soft, nontender, nondistended. No peritoneal signs. Musculoskeletal: No gross deformities. Edema noted Skin: No obvious rashes or erythema. Neuro: Intubated, sedated. Moves spontaneously : [place] in place draining educating her Extremities: Compression boots on bilaterally (Corina Person MD R1) Urinary Catheter: Yes Assessment to: Continue Galicia insert reason: Prolonged Immobilization (Corina Person MD R1) A/P Assessment and Plan 71-year-old male who presented with a 5-day history of shortness of breath and nonproductive cough. ACS rule out positive for NSTEMI. Patient has a history of COPD and was admitted with sepsis with cardiology consultation for NSTEMI. Developed respiratory distress on 09/04 and was transferred to the ICU with critical care consult. Tolerated BiPAP vs nonrebreather vs nasal cannula for several days, but due to worsening respiratory distress, he was intubated on 09/12. Cardiology to perform left heart catheterization when clinically better. Pulmonology on board. Nephrology consulted for PHILIPPE. Hematology consulted due to thrombocytopenia. Currently being managed by critical care physician. On fentanyl and propofol at this time. Discharge Planning Pending clinical improvement (Corina Person MD R1) Attending Attestation Patient seen and examined. Case reviewed and discussed. Agree with plan of care as discussed with me and documented in the resident note. (She Harris MD) Problem List: (1) ARDS (adult respiratory distress syndrome) Status: Acute Plan: Intubated and sedated in the ICU, peak pressures approximately 40s, PEEP of 12 -Critical care managing - will follow recs -Consider placing in a prone bed -Decrease FIO2 as tolerated -Daily sedation vacation -Steroids per critical care -DuoNebs every 6 hours -I's and O's -Daily weights (2) NSTEMI (non-ST elevated myocardial infarction) Status: Acute Plan: -Patient with elevated troponins to 1.[address] elevations in V1 V3 on admission -Cardiology signed off - may reconsult after clinical improvement -Left heart catheter when clinically able to tolerate procedure -Continue medical management (3) Aortic stenosis Status: Acute Plan: -Cardiothoracic surgery consulted -Cardiology and cardiothoracic surgery to discuss plans going forward -Will need to optimize medical management prior to performing any procedures -Pulmonology consulted given high surgical risk- appreciate recommendations (4) Pneumonia Status: Resolved Plan: -Strep pneumoniae in sputum culture -Ceftarolin 300 mg IV discontinued -Pt has been afebrile with no elevated WBC count -Procalcitonin wnl on 09/15 -Infectious disease has signed off (5) CHF due to valvular disease Status: Acute Plan: Echo performed on 09/02 showed EF of 5055 percent. -Aortic valve with moderate to severe stenosis -Coreg 3.125 mg by mouth every 12 hours (6) PHILIPPE (acute kidney injury) Status: Acute Plan: Stable -Nephrology on board -Monitor I's and O's -Avoid nephrotoxins -Off Bumex drip -Increase intermittent Bumex to 2 mg IV TID (7) Thrombocytopenia Status: Acute Plan: Stable -Transfuse for platelets less than 20K -Decreased aspirin to 81mg daily, discontinue for platelets less than 40K -Hematology consulted -Suspect due to DIC/Consumption--fibrinogen preserved -Heparin subcutaneous discontinued -HIT positive, but likely false positive, TIGIST wnl and result does not support HIT -Hepatitis panel negative -Abdominal ultrasound on 09/07 shows heterogeneous hepatic echo texture consistent with chronic liver disease, splenomegaly, mild to moderate ascites -Continue to monitor daily CBC (8) Diabetes Status: Chronic Plan: Patient's home regimen is NPH 25 units every morning and 50 units daily at bedtime -Intubated, on Glucerna tube feeds -Currently on Levemir 14 units twice a day per critical care -Continue high scale SSI -Taper steroids -Adjust insulin regimen as needed (9) COPD exacerbation Status: Acute Plan: Patient with known COPD and [id number] history of smoking Albuterol every 2 hours when necessary DuoNeb nebs every 4 hours scheduled Solu-Medrol 40 mg every 12 hours (10) Hypertension Status: Chronic Plan: Continue Coreg. Hydralazine when necessary. Continue losartan (11) Anxiety and depression Status: Chronic Plan: -Continue home meds on adjusted regimen -Trazodone 100 mg by mouth daily - -Sertraline 100 mg by mouth daily - taper to 50mg -Buspirone 10mg BID - hold -Primidone 100mg PO BID - continue (12) FEN/DVT PPX/GI PPX Status: Acute Plan: Fluids: per CC Electrolytes: Will monitor and replace as needed Nutrition: Tube feeds, Glucerna DVT Prophylaxis: Bilateral SCDs, heparin discontinued due to thrombocytopenia GI Prophylaxis: None currently (Corina Person MD R1) Problem Qualifiers (1) Aortic stenosis: Qualified Code: I35.0 - Aortic valve stenosis, unspecified etiology (2) Pneumonia: Qualified Code: J18.9 - Pneumonia of both lungs due to infectious organism, unspecified part of lung (3) Diabetes: (4) Hypertension: Qualified Code: I10 - Essential hypertension Corina Person MD R1 Sep 20, 2016 09:46 She Harris MD Sep 23, 2016 17:41
[2016-09-20] MEDS ORDERED: DEXTROSE 50% IN WATER 50 ML VIAL(D50) IV PUSH PRN (10:45)
--- NOTE | 2016-09-20 11:32 | HHI.CCPN ---
Subjective Remarks/Hospital Course The patient is a 71-year-old male with past medical history significant for COPD, aortic stenosis, hypertension and diabetes who presented to the emergency department with progressive shortness of breath and nonproductive cough for last 5 days. He was diagnosed and admitted to service on with [id number] UT, COPD exacerbation and probable pneumonia. He had a previous heart catheterization in 2014, was told at that time he needed to have aortic valve replacement. He was started on IV antibiotics with Rocephin and azithromycin and also was placed on IV steroids and DuoNeb breathing treatment for probable COPD exacerbation. All the cultures so far negative, also negative for influenza A and B, negative for Streptococcus and Legionella antigen. Cardiology was consulted, and echo showed moderate to severe aortic stenosis. Cardiothoracic surgery was also consulted and is following, plan for cardiac catheterization this Tuesday. A Halicat was called today as the patient was increasingly lethargic with increased dyspnea and hypoxia. He desaturated to the 70% when RN attempted to move him. Chest x-ray showed bilateral pulmonary edema worsening compared to admission. He was moved to the ICU and critical care medicine was consulted. I evaluated the patient in ICU. He is tachypneic on 100% nonrebreather. Examination revealed bilateral crackles. 60 mg of IV Lasix stat given and patient was ordered to be placed on BiPAP at 06/16. BNP was 658 SUBJECT 09/05/16: Patient did not tolerate BiPAP overnight. Currently remains on partial nonrebreather. Urine output more than 6 L in 24 hours. He developed atrial flutter with RVR, was placed on esmolol which I have changed to Cardizem. Chest x-ray shows interval improvement in my review 09/06/16: Remains on pNRB. sputum cx with strep pneumo. Urine out put diminishing. 1L bolus given with adequate response. Bilateral lung infiltrate. Discussed with Dr. Dudley. Will hold off cath until Reps failure/ALI improves and renal failure improves 09.07 Patient is on BIPAP 06/16 with FIO2 65%. Afebrile. 09/08 Patient is off BIPAP on Bumex drip 2mg/hr with UO 7.6L in 24 hrs. Afebrile feeling better. Renal function improving with Cr 1.52 from 2.07. 09/09 Patient is on partial rebreather with good sats. Afebrile. Renal function improving with Cr: 1.09 from 1.52. Remains on Bumex drip down 0.5mg/hr. 09/10 Patient was placed on Amio drip yesterday . Afebrile. Off Bumex drip. 09/11 No acute events overnight. Remains on Amio drip. On partial rebreather. CT chest last night showed no PE. 09/12 No acute events overnight. Remains on partial rebreather, off Amio drip. Afebrile. 09/13 Patient was intubated yesterday for resp distress and hypoxemia. Sedated with Diprivan and Fentanyl. Afebrile. On PRVC/AC RR 18, TV 550, PEEP: 10, FIO2 60%. 09/14 Patient is sedated with Diprivan and Fentanyl. Off Bumex drip, afebrile. Cr 1.53 today from 1.41. 09/15: Remains sedated. FiO2 70% with PEEP of 10. CXR unchanged. Creat 1.57. CXR remains same with bilateral infiltrates 09/16: Remains intubated sedated. FiO2 at 50% with a PEEP of 12. Chest x-ray unchanged to slightly improved. Urine output 2.4 L in 24 hours after starting Bumex 2 mg IV every 12 yesterday by nephrology. Creatinine stable to slightly improved 09/17 Patient is sedated with Diprivan/Fentanyl and intubated. On PRVC/AC RR 20 , TV 550, IT:0.9, PEEP:12, FIO2 50%. Afebrile. 09/18: very high peak pressures in the 40s despite conservative PRVC settings. still grossly volume overloaded. also spiked new fever to 102 today, off abx. minimal secretions. very critically ill. 09/19: peak pressures slightly improved. no significant improvement in overall function. still volume overloaded. no longer febrile. sputum gram stain rare GPCs, but this was the same as the last gram stain on 09/13 which did not grow any single bacterial strain. 09/20: still poor uop and net even fluid balance despite aggressive diuresis and persistent volume overload. may need to discuss tracheostomy in near future. no improvements in mechanical ventilation. Objective Vital Signs Date Time Temp Pulse Resp B/P Pulse Ox O2 Delivery O2 Flow Rate FiO2 09/20/16 10:00 71 09/20/16 08:04 94 45 09/20/16 08:00 98.9 20 121/56 09/20/16 08:00 Mechanical Ventilator 09/18/16 04:00 15.00 Intake and Output 09/19/16 09/19/16 09/20/16 08:00 16:00 00:00 Intake Total 325 ml 605 ml 566 ml Output Total 775 ml 550 ml Balance 325 ml -170 ml 16 ml Result Diagram: 09/20/16 0435 09/20/16 0435 Imaging Last Impressions Chest X-Ray 09/16/16 0600 Signed Impressions: Service Date/Time: September 05:38 - CONCLUSION: 1. Stable patchy, bilateral airspace disease with interstitial prominence. 2. Improving left sided effusion. 3. Stable position of life support tubes. Delfino Sylvester MD Lower Extremity Ultrasound 09/11/16 0000 Signed Impressions: Service Date/Time: Sunday, September 11, 2016 12:30 - CONCLUSION: No DVT is identified within either lower extremity. Frank Young MD CT Angiography 09/10/16 0000 Signed Impressions: Service Date/Time: Sunday, September 11, 2016 01:05 - CONCLUSION: No evidence of pulmonary embolism. Frank Hardin MD Abdomen Ultrasound 09/07/16 0000 Signed Impressions: Service Date/Time: Wednesday, September 07, 2016 16:45 - CONCLUSION: Heterogeneous hepatic echotexture consistent with chronic liver disease. Splenomegaly Mild to moderate ascites Mildly thickened gallbladder wall without evidence of gallstones. No evidence of hydronephrosis. Isidro Oliver MD Upper Extremity Ultrasound 09/06/16 0000 Signed Impressions: Service Date/Time: Tuesday, September 06, 2016 20:43 - CONCLUSION: No evidence of DVT. Isidro Oliver MD Chest CT 09/05/16 0000 Signed Impressions: Service Date/Time: Monday, September 05, 2016 15:37 - CONCLUSION: 1. Cardiomegaly with diffuse ground glass densities and consolidation likely pulmonary edema and/or pneumonia. 2. Small bilateral pleural effusions. 3. Prominent lymphadenopathy in the mediastinum. Cameron Archer MD Objective Remarks Gen: 71-year-old male lying in bed intubated and sedated. Head: Normocephalic. Atraumatic. EENT: Pupils equal round and reactive to light. Cardiovascular: S1-S2 normal. Systolic murmur heard in the aortic area Respiratory: B/l equal air entry with coarse BS. severely elevated peak pressures 40s on prvc. Abdomen: Soft, nontender, nondistended. No peritoneal signs. Musculoskeletal: No gross deformities. No edema. Skin: No obvious rashes or erythema. Neuro: Sedated. Withdraws extremities to pain. Moves all extremities spontaneously on sedation lightening A/P Assessment and Plan NEURO: -Monitor neuro status -On Diprivan and Fentanyl infusion for sedation and vent synchrony. Daily sedation vacation. RESP: Acute hypoxemic respiratory failure ARDS Pneumococcal pneumonia COPD exacerbation -On PRVC/AC RR 16, TV 440, PEEP:10, FIO2 40%., IT:0.9. continue to wean as tolerated. -Continue with vent support keep sat >90% -Bronchodilators. Solu-Medrol 40mg IV daily -3/3 CTA chest - no PE - continues to be volume overloaded, which is his biggest noe to successful weaning of mechanical ventilation. CV: Severe aortic stenosis CHF NSTEMI -Monitor HR and BP keep MAP>65mmHg -Continue aspirin, Coreg 6.25mg BID, -hold Hydralazine 50mg Q8 given borderline pressures. -Echo showed EF 50-55%, mod-severe -Cardiothoracic surgery and cardiology Dr. Dudley is following -[facility] on hold due to resp failure and renal failure- Dr. Dudley. GI: -Elevated LFT's..trending down Hypernatremia -On Glucerna 1.5@45ml/hr. -Protonix for GI prophylaxis -Monitor LFT's ( trending down) -US abdomen: Chronic liver disease. Splenomegaly Mild to moderate ascites Mildly thickened gallbladder wall without evidence of gallstones. No evidence of hydronephrosis. -increase free water to 300 q4h to help with hypernatremia. : Acute kidney injury. Hyponatremia.. resolved Volume overload -Monitor renal function, I/O's, avoid nephrotoxins. -Renal- Dr. Roa. Renal US: No hydronephrosis -On Bumex 2mg BID. -per nephrology, added vi diuril today. -will add diamox 500mg iv q8h for contraction alkalosis and to help prevent his compensatory hypoventilation -will add a 24h trial of concentrated albumin to help preserve intravascular volume status in the setting of severe Aortic stenosis and acute kidney injury. -daily BMP ID: Severe Sepsis Pneumococcal pneumonia -Off abx per ID -Sputum culture positive for strep pneumo. Influenza negative -new cultures 09/18 NGTD. still holding off on abx. HEME: -Monitor CBC, CMP, coags. Hep PLT ab positive, TIGIST negative, Heme is following ENDO: Type 2 diabetes Hypothyroidism -On high scale SSI for glycemic control. but glycemic control still poor. will increase to q4h schedule and increase Levemir to 20u Q12 -d/c methylpred, rapid prednisone taper: 10mg tomorrow, 5mg x 1 day, then off. -Continue Synthroid 50 mcg daily. TSH: 0.373 PROPH: -Bilateral lower extremity SCDs. Protonix for GI prophylaxis. restart SQH. LINES: -Utilize peripheral IVs, OVERALL IMPRESSION: 71yM with severe acute hypoxic and hypercarbic respiratory failure with little to no improvement after a lengthy mechanical ventilation. volume overload persists. Aortic stenosis makes hemodynamics and additional cardiovascular optimization difficult and the combination of these organ dysfunctions may ultimately lead to his during this hospital stay. He remains critically ill at this point. This patient remains critically ill with one or more organ systems which are or may become a threat to life. I have spent in excess of 37 minutes discontinuously in the care and management of this patient. This time is exclusive of procedures, and includes, but is not limited to, evaluation of the patient, review of the medical record, discussions with family, consultants, nursing staff, or respiratory therapy, and documentation in the medical record. Ed Cohen MD Sep 20, 2016 11:32
[2016-09-20] MEDS: ALBUMIN HUMAN 25% 12.5 GM/50 ML BAGP IV SCH ×2 (11:36→18:02)
--- NOTE | 2016-09-20 12:14 | PQ ---
Physician Query Response Document PATIENT: LUI CAMACHO : 1945 ADMIT DATE: 08/31/2016 1:13 PM DISCH DATE: RESPONDING PROVIDER #: [email or web address] QUERY TEXT: CHF Acuity and Type Congestive Heart Failure is documented in the Medical Record. Please document the type and acuity (in cludes probable or suspected) Such as: Type: -- Systolic -- Diastolic -- Combined -- Other, please specify Acuity: -- Acute -- Chronic -- Acute on chronic -- Other, please specify PLEASE CALL KEV IN [facility] @ EXT [phone] FOR ASSISTANCE- THANK YOU The patient's Clinical Indicators include: PER CONSULTATION NOTE :A Halicat was called today as the patient was increasingly lethargic with incr eased dyspnea and hypoxia. He desaturated to the 70% when RN attempted to move him. Chest x-ray show ed bilateral pulmonary edema worsening compared to admission. He was moved to the ICU and critical c are medicine was consulted. I evaluated the patient in ICU. He is tachypneic on 100% nonrebreather. Examination revealed bilateral crackles. 60 mg of IV Lasix stat given and patient was ordered to b e placed on BiPAP at 12/7. BNP was 658 -Echo showed EF 50-55%, mod-severe Query created by: Kev Tejada on 09/16/2016 3:56 PM RESPONSE TEXT: Acute on chronic probably combined heart failure Electronically signed by: Minnie Marie MD 09/20/2016 12:09 PM
[2016-09-20] MEDS: fentaNYL DRIP 250 ML IV SCH (16:19)
[2016-09-20] MEDS: traZODone HCL 100 MG TAB PO SCH (20:25)
[2016-09-20] MEDS: HEPARIN SODIUM - SQ 10,000 UNITS/ML VIAL SQ SCH ×2 (20:31→20:45)
--- NOTE | 2016-09-20 20:59 | HHI.PR ---
Subjective Remarks 71 YOWM with Resp insuf, COPD,Lung infilt No fever Pt intubated On AC 16,Fi02 45% Sedated tolerates vent Objective Vital Signs Vital Signs Date Time Temp Pulse Resp B/P Pulse Ox O2 Delivery O2 Flow Rate FiO2 09/20/16 20:40 94 45 09/20/16 18:00 71 09/20/16 16:00 94 Mechanical Ventilator 45 09/20/16 16:00 45 09/20/16 16:00 99.6 73 20 102/55 94 09/20/16 16:00 73 09/20/16 15:27 95 45 09/20/16 14:00 79 09/20/16 12:00 99.3 74 20 126/61 96 09/20/16 12:00 45 09/20/16 12:00 96 Mechanical Ventilator 45 09/20/16 12:00 74 09/20/16 11:23 94 45 09/20/16 10:00 71 09/20/16 08:04 94 45 09/20/16 08:00 98.9 69 20 121/56 99 09/20/16 08:00 45 09/20/16 08:00 69 09/20/16 08:00 99 Mechanical Ventilator 45 09/20/16 06:00 64 09/20/16 04:19 98 50 09/20/16 04:00 100 Mechanical Ventilator 50 09/20/16 04:00 50 09/20/16 04:00 98.8 66 20 117/56 100 09/20/16 04:00 66 09/20/16 02:00 65 09/20/16 01:13 96 50 09/20/16 00:00 50 09/20/16 00:00 99 Mechanical Ventilator 50 09/20/16 00:00 98.2 64 20 102/51 99 09/20/16 00:00 70 09/19/16 22:15 97 50 09/19/16 22:00 67 I/O 09/19/16 09/19/16 09/19/16 09/20/16 09/20/16 09/20/16 07:00 15:00 23:00 07:00 15:00 23:00 Intake Total 325 ml 605 ml 566 ml 439 ml 643 ml Output Total 775 ml 550 ml 350 ml 1750 ml Balance 325 ml -170 ml 16 ml 89 ml -1107 ml IV Total 167 ml 261 ml 242 ml 162 ml 181 ml Tube Feeding 158 ml 344 ml 324 ml 277 ml 462 ml Output Urine Total 775 ml 550 ml 350 ml 1750 ml # Bowel Movements 1 1 2 0 Result Diagram: 09/20/1643409/20/16434 Objective Remarks GENERAL: Obese WM, mild sob SKIN: Warm and dry. HEAD: Normocephalic. EYES: No scleral icterus. No injection or drainage. NECK: Supple, trachea midline. No JVD or lymphadenopathy. CARDIOVASCULAR: Regular rate and rhythm without murmurs, gallops, or rubs. RESPIRATORY: Breath sounds equal bilaterally. No accessory muscle use. GASTROINTESTINAL: Abdomen soft, non-tender, nondistended. MUSCULOSKELETAL: No cyanosis, or edema. BACK: Nontender without obvious deformity. No CVA tenderness. A/P Assessment and Plan Resp Failure, on Vent COPD Lung infilt DM Ch. Pain PLAN: Cont Abx IV Solumedrol Vent Support, AC16, Fi02 45% Aerosol nebs Monitor BS Monitor renal functions Sedation for vent synchrony Kai Escobedo MD Sep 20, 2016 20:59
[2016-09-21] VITALS (20 sets, daily range): BP systolic 98–145; BP diastolic 52–67; PULSE 70–107; RESP 20; TEMP 98.6–100.9; O2SAT 91–98
[2016-09-21] MEDS: INSULIN NovoLIN REGULAR SUPPLEMENTAL SCALE SQ SCH ×8 (01:00→21:33)
[2016-09-21] MEDS: FREE WATER G-TUBE SCH ×4 (01:00→12:00)
[2016-09-21] MEDS: ALBUMIN HUMAN 25% 12.5 GM/50 ML BAGP IV SCH ×3 (03:15→21:34)
[2016-09-21] MEDS: PROPOFOL 1000 MG/100 ML INJ 100 ML IV SCH ×2 (04:30→12:28)
[2016-09-21] MEDS: LEVOTHYROXINE SODIUM 50 MCG TAB PO SCH (06:44)
[2016-09-21] MEDS: PANTOPRAZOLE SODIUM 40 MG VIAL IV PUSH SCH ×2 (06:44→19:53)
[2016-09-21 07:42] LABS: MEAN CORPUSCULAR HEMOGLOBIN 28.3 PG (27.0-34.0); MEAN CORPUSCULAR HGB CONC 32.2 % (32.0-36.0); PLATELET COUNT 84 TH/MM3 (150-450); RED BLOOD COUNT 2.73 MIL/MM3 (4.50-5.90); RED CELL DISTRIBUTION WIDTH 16.7 % (11.6-17.2); WHITE BLOOD COUNT 7.9 TH/MM3 (4.0-11.0)
[2016-09-21 07:58] LABS: APTT (PATIENT) 21.2 SEC (24.3-30.1); PROTHROMBIN TIME - PATIENT 11.2 SEC (9.8-11.6)
[2016-09-21 08:16] LABS: BICARBONATE 38.8 MEQ/L (21.0-32.0)
[2016-09-21 08:18] LABS: POTASSIUM 3.6 MEQ/L (3.5-5.1)
[2016-09-21 08:20] LABS: HEMO FLAGS AUTO DIFF
[2016-09-21] MEDS: SERTRALINE HCL 50 MG TAB PO SCH (08:22)
[2016-09-21] MEDS: DOCUSATE SODIUM 50 MG/SENNA 8.6 MG TAB PO SCH (08:22)
[2016-09-21] MEDS: ASPIRIN 81 MG CHEW TAB PO SCH (08:22)
[2016-09-21] MEDS: PRAVASTATIN SOD 40 MG TAB PO SCH (08:22)
[2016-09-21] MEDS: predniSONE 5 MG/5 ML CUP PO SCH (08:22)
[2016-09-21] MEDS: CARVEDILOL 6.25 MG TAB PO SCH ×2 (08:22→21:33)
[2016-09-21] MEDS: FERROUS SULFATE 300 MG /5ML UDC PO SCH ×2 (08:22→21:33)
[2016-09-21 08:23] LABS: BANDS 7 % (0-6); EOSINOPHILS 1 % (0-4); NEUTROPHIL # MANUAL DIFF 6.2 TH/MM3 (1.8-7.7); PLATELET ESTIMATE SMEAR LOW (NORMAL); PLATELET MORPHOLOGY ENLARGED (NORMAL); POLYS (SEG NEUTROPHILS) 72 % (16-70); SCAN/DIFF FINAL DIFF MANUAL; WBC DIFF SAMPLE 100
[2016-09-21] MEDS: BUMETANIDE INJ 1 MG/4 ML VIAL IV PUSH SCH ×2 (08:23→12:25)
[2016-09-21] MEDS: INSULIN DETEMIR 100 UNITS/ML VIAL SQ SCH (08:23)
[2016-09-21] MEDS: PRIMIDONE 50 MG TAB PO SCH ×3 (08:24→19:53)
[2016-09-21] MEDS: HEPARIN SODIUM - SQ 10,000 UNITS/ML VIAL SQ SCH ×2 (09:00→21:00)
[2016-09-21] MEDS: fentaNYL DRIP 250 ML IV SCH (10:37)
--- NOTE | 2016-09-21 11:42 | HHI.NPPN ---
Subjective Complaints: Confused, Shortness of Breath General Problems: Edema Renal Failure: Chronic, Acute Interval History Renal function is stable. sodium has improved. On 45% Fi02. Intubated/sedated. (Prachi Palencia) Review of Systems General General Remarks unable to evaluate (Prachi Palencia) Objective Data Data 09/20/16 09/21/16 19:00 07:00 Intake Total 643 ml 1765 ml Output Total 1750 ml 2000 ml Balance -1107 ml -235 ml IV Total 181 ml 295 ml Tube Feeding 462 ml 570 ml Other 900 ml Output Urine Total 1750 ml 2000 ml # Bowel Movements 0 1 Vital Signs Date Time Temp Pulse Resp B/P Pulse Ox O2 Delivery O2 Flow Rate FiO2 09/21/16 10:00 74 09/21/16 08:45 98 45 09/21/16 08:00 94 Mechanical Ventilator 45 09/21/16 08:00 100.1 74 20 102/52 94 09/21/16 08:00 74 09/21/16 08:00 45 09/21/16 06:00 107 09/21/16 04:21 94 50 09/21/16 04:00 50 09/21/16 04:00 97 Mechanical Ventilator 50 09/21/16 04:00 72 09/21/16 04:00 98.9 72 20 131/60 97 09/21/16 02:00 72 09/21/16 01:47 94 50 09/21/16 00:00 50 09/21/16 00:00 98.6 70 20 98/55 94 09/21/16 00:00 70 09/21/16 00:00 94 Mechanical Ventilator 50 09/20/16 22:29 94 45 09/20/16 22:00 69 09/20/16 20:40 94 45 09/20/16 20:00 99.1 73 20 113/58 94 09/20/16 20:00 94 Mechanical Ventilator 45 09/20/16 20:00 45 09/20/16 20:00 67 09/20/16 18:00 71 09/20/16 16:00 94 Mechanical Ventilator 45 09/20/16 16:00 45 09/20/16 16:00 99.6 73 20 102/55 94 09/20/16 16:00 73 09/20/16 15:27 95 45 09/20/16 14:00 79 09/20/16 12:00 99.3 74 20 126/61 96 09/20/16 12:00 45 09/20/16 12:00 96 Mechanical Ventilator 45 09/20/16 12:00 74 (Prachi Palencia) -: 09/21/16 0642 09/21/16 0642 Microbiology 09/21/16 Stool Occult Blood (CASSIDY) - Final, Complete HEMOCCULT POSITIVE Tubes & Lines: Ortega Drip Comment fentanyl, propofol (Prachi Palencia) Physical Exam General Appearance: Well Developed, Well Nourished, No Acute Distress Appearance Remarks intubated/sedated/unresponsive (Prachi Palencia) Throat Throat Exam: Oral Mucosa [place] & Moist (Prachi Palencia) Pulmonary Resp Exam: Breath Sounds Equal, Crackles, Decreased Bases (Prachi Palencia) Cardiology CV Exam: Regular, Good Perfusion (Prachi Palencia) Gastrointestinal/Abdomen GI Exam: Soft, Non-Tender, Bowel Sounds Present (Prachi Palencia) Genitourinary Exam: Clear Urine (Prachi Palencia) Musculoskeletal MS Exam: Joints Intact, Normal Gait, Normal Tone (Prachi Palencia) Integumentary Skin Exam: Clear, Warm, Dry, Intact (Prachi Palencia) Extremeties Extremities Exam: Pedal Pulses Palpable, Moderate Edema (Prachi Palencia) Neurologic Neuro Exam: Unresponsive, Sedated (Prachi Palencia) Psychiatric Psych Exam: Appropriate Responses (Prachi Palencia) Assessment/Plan Discussed Condition With: Spouse, Relative Assessment Summary: PHILIPPE/Acute Renal Failure Problem List: (1) PHILIPPE (acute kidney injury) Plan: ARF due to ATN, secondary to renal hypoperfusion injury (sepsis, hypotension, A fib RVR) renal function is stable, somewhat improved non oliguric, monitor output being diuresed with Bumex 2 mg IV TID; hypernatremia improved, on free water with tube feeding, give another dose of Diuril and monitor off IVF follow electrolytes, replace as needed BUN high, may be due to steroids avoid nephrotoxins, heart cath on hold ortega in place for I/O measurement daily renal panel (2) Congestive heart failure (CHF) Plan: monitor fluid volume status diuresis as above (3) Diabetes Plan: continue insulin therapy monitor glucose, goal 140-180 mg/dL (4) Hypertension Plan: BP stable, continue antihypertensives (5) Severe sepsis Plan: previously being treated for strep pneumonia now with ARDS type presentation, 02 requirement at 45% ID following, off antibiotics WBC normalized (6) Aortic stenosis Plan: cardiology signed off until he is extubated plan for heart cath if clinically improved (7) A-fib Plan: rate controlled (Prachi Palencia) Problem List: (1) PHILIPPE (acute kidney injury) Plan: ARF due to ATN, secondary to renal hypoperfusion injury (sepsis, hypotension, A fib RVR) renal function is stable, somewhat improved non oliguric, monitor output being diuresed with Bumex 2 mg IV TID; hypernatremia improved, on free water with tube feeding, give another dose of Diuril and monitor off IVF follow electrolytes, replace as needed BUN high, may be due to steroids avoid nephrotoxins, heart cath on hold ortega in place for I/O measurement daily renal panel (2) Congestive heart failure (CHF) Plan: monitor fluid volume status diuresis as above (3) Diabetes Plan: continue insulin therapy monitor glucose, goal 140-180 mg/dL (4) Hypertension Plan: BP stable, continue antihypertensives (5) Severe sepsis Plan: previously being treated for strep pneumonia now with ARDS type presentation, 02 requirement at 45% ID following, off antibiotics WBC normalized (6) Aortic stenosis Plan: cardiology signed off until he is extubated plan for heart cath if clinically improved (7) A-fib Plan: rate controlled Plan patient was seen and examined. Agree with above assessment and plan. Discussed with patient's , she is considering palliative care. (Gentry Roa MD) Problem Qualifiers (1) Congestive heart failure (CHF): (2) Diabetes: (3) Hypertension: Qualified Code: I10 - Essential hypertension (4) Aortic stenosis: Qualified Code: I35.0 - Aortic valve stenosis, unspecified etiology (5) A-fib: Qualified Code: I48.91 - Atrial fibrillation, unspecified type Prachi Palencia Sep 21, 2016 11:42 Gentry Roa MD Sep 21, 2016 20:37
[2016-09-21] MEDS ORDERED: CHLOROTHIAZIDE SOD 500 MG VIAL IV ONE (12:00)
--- NOTE | 2016-09-21 12:30 | HHI.FPPN ---
Subjective Remarks Patient was evaluated at bedside this morning. Is on vent with sedation. is at bedside this morning, reporting that she notes no significant changes in his status and is now thinking about end-of-life planning for him. Palliative care consulted today per 's request (09/21/16). (Corina Person MD R1) Objective Vitals Vital Signs Date Time Temp Pulse Resp B/P Pulse Ox O2 Delivery O2 Flow Rate FiO2 09/21/16 10:00 74 09/21/16 08:45 98 45 09/21/16 08:00 94 Mechanical Ventilator 45 09/21/16 08:00 100.1 74 20 102/52 94 09/21/16 08:00 74 09/21/16 08:00 45 09/21/16 06:00 107 09/21/16 04:21 94 50 09/21/16 04:00 50 09/21/16 04:00 97 Mechanical Ventilator 50 09/21/16 04:00 72 09/21/16 04:00 98.9 72 20 131/60 97 09/21/16 02:00 72 09/21/16 01:47 94 50 09/21/16 00:00 50 09/21/16 00:00 98.6 70 20 98/55 94 09/21/16 00:00 70 09/21/16 00:00 94 Mechanical Ventilator 50 09/20/16 22:29 94 45 09/20/16 22:00 69 09/20/16 20:40 94 45 09/20/16 20:00 99.1 73 20 113/58 94 09/20/16 20:00 94 Mechanical Ventilator 45 09/20/16 20:00 45 09/20/16 20:00 67 09/20/16 18:00 71 09/20/16 16:00 94 Mechanical Ventilator 45 09/20/16 16:00 45 09/20/16 16:00 99.6 73 20 102/55 94 09/20/16 16:00 73 09/20/16 15:27 95 45 09/20/16 14:00 79 I/O 09/20/16 09/20/16 09/20/16 09/21/16 09/21/16 09/21/16 07:00 15:00 23:00 07:00 15:00 23:00 Intake Total 439 ml 643 ml 795 ml 970 ml Output Total 350 ml 1750 ml 1600 ml 400 ml Balance 89 ml -1107 ml -805 ml 570 ml IV Total 162 ml 181 ml 162 ml 133 ml Tube Feeding 277 ml 462 ml 333 ml 237 ml Other 300 ml 600 ml Output Urine Total 350 ml 1750 ml 1600 ml 400 ml # Bowel Movements 2 0 0 1 (Corina Person MD R1) Result Diagram: 09/21/16 0642 09/21/16641 Objective Remarks Gen.: Lying in bed, intubated, sedated. at bedside. Head: Normocephalic. Atraumatic. EENT: Pupils equal round and reactive to light. Nose without drainage. Airway intact. Cardiovascular: Regular rate and rhythm. Systolic ejection murmur along left sternal border. Respiratory: CTAB bilaterally. Abdomen: Soft, nontender, nondistended. No peritoneal signs. Musculoskeletal: No gross deformities. Edema noted. Skin: No obvious rashes or erythema. Neuro: Intubated, sedated. Moves spontaneously : [place] in place draining educating her Extremities: Compression boots on bilaterally (Corina Person MD R1) Urinary Catheter: Yes Assessment to: Continue (Corina Person MD R1) Vascular Central Line Catheter: Yes (Corina Person MD R1) A/P Assessment and Plan 71-year-old male who presented with a 5-day history of shortness of breath and nonproductive cough. ACS rule out positive for NSTEMI. Patient has a history of COPD and was admitted with sepsis with cardiology consultation for NSTEMI. Developed respiratory distress on 09/04 and was transferred to the ICU with critical care consult. Tolerated BiPAP vs nonrebreather vs nasal cannula for several days, but due to worsening respiratory distress, he was intubated on 09/12. Cardiology to perform left heart catheterization when clinically better. Pulmonology on board. Nephrology consulted for PHILIPPE. Hematology consulted due to thrombocytopenia. Currently being managed by critical care physician. On fentanyl and propofol at this time. 09/21/16: Palliative care consulted per 's request; she notes that she and patient's son have different views on patient's prognosis and she thinks Palliative Care would be helpful in EOL planning as patient "doesn't have any papers" identifying his own wishes. Discharge Planning Unclear prognosis at this time (Corina Person MD R1) Attending Attestation Patient seen and examined. Case reviewed and discussed. Agree with plan of care as discussed with me and documented in the resident note. (She Harris MD) Problem List: (1) ARDS (adult respiratory distress syndrome) Status: Acute Plan: Intubated and sedated in the ICU, peak pressures approximately 40s, PEEP of 10 today -Critical care managing - will follow recs -Consider placing in a prone bed -Decrease FiO2 as tolerated -Daily sedation vacation -Steroids per critical care -DuoNebs every 6 hours -I's and O's -Daily weights (2) NSTEMI (non-ST elevated myocardial infarction) Status: Acute Plan: -Patient with elevated troponins to 1.[address] elevations in V1 V3 on admission -Cardiology signed off - may reconsult after clinical improvement -Left heart catheter when clinically able to tolerate procedure -Continue medical management (3) Aortic stenosis Status: Acute Plan: -Cardiothoracic surgery consulted -Cardiology and cardiothoracic surgery to discuss plans going forward -Will need to optimize medical management prior to performing any procedures -Pulmonology consulted given high surgical risk- appreciate recommendations (4) Pneumonia Status: Resolved Plan: -Strep pneumoniae in sputum culture -Ceftarolin 300 mg IV discontinued -Pt has been afebrile with no elevated WBC count -Procalcitonin wnl on 09/15 -Infectious disease has signed off (5) CHF due to valvular disease Status: Acute Plan: Echo performed on 09/02 showed EF of 5055 percent. -Aortic valve with moderate to severe stenosis -Coreg 3.125 mg by mouth every 12 hours (6) PHILIPPE (acute kidney injury) Status: Acute Plan: Stable -Nephrology on board -Monitor I's and O's -Avoid nephrotoxins -Off Bumex drip -Increase intermittent Bumex to 2 mg IV TID (7) Thrombocytopenia Status: Acute Plan: Stable -Transfuse for platelets less than 20K -Decreased aspirin to 81mg daily, discontinue for platelets less than 40K -Hematology consulted -Suspect due to DIC/Consumption--fibrinogen preserved -Heparin subcutaneous discontinued -HIT positive, but likely false positive, TIGIST wnl and result does not support HIT -Hepatitis panel negative -Abdominal ultrasound on 09/07 shows heterogeneous hepatic echo texture consistent with chronic liver disease, splenomegaly, mild to moderate ascites -Continue to monitor daily CBC (8) Diabetes Status: Chronic Plan: Patient's home regimen is NPH 25 units every morning and 50 units daily at bedtime -Intubated, on Glucerna tube feeds -Currently on Levemir 14 units twice a day per critical care -Continue high scale SSI -Taper steroids -Adjust insulin regimen as needed (9) COPD exacerbation Status: Acute Plan: Patient with known COPD and [id number] history of smoking Albuterol every 2 hours when necessary DuoNeb nebs every 4 hours scheduled Solu-Medrol 40 mg every 12 hours (10) Hypertension Status: Chronic Plan: Continue Coreg. Hydralazine when necessary. Continue losartan (11) Anxiety and depression Status: Chronic Plan: -Continue home meds on adjusted regimen -Trazodone 100 mg by mouth daily - -Sertraline 100 mg by mouth daily - taper to 50mg -Buspirone 10mg BID - hold -Primidone 100mg PO BID - continue (12) FEN/DVT PPX/GI PPX Status: Acute Plan: Fluids: per CC Electrolytes: Will monitor and replace as needed Nutrition: Tube feeds, Glucerna DVT Prophylaxis: Bilateral SCDs, heparin discontinued due to thrombocytopenia GI Prophylaxis: None currently (Corina Person MD R1) Problem Qualifiers (1) Aortic stenosis: Qualified Code: I35.0 - Aortic valve stenosis, unspecified etiology (2) Pneumonia: Qualified Code: J18.9 - Pneumonia of both lungs due to infectious organism, unspecified part of lung (3) Diabetes: (4) Hypertension: Qualified Code: I10 - Essential hypertension Corina Person MD R1 Sep 21, 2016 12:30 She Harris MD Sep 23, 2016 17:41
[2016-09-21] MEDS ORDERED: MAGNESIUM SULFATE INJ 4 GM in SODIUM CHLORIDE 0.9% INJ 92 ML IV PRN (13:15)
[2016-09-21] MEDS ORDERED: POTASSIUM PHOSPHATE MONOBASIC 500 MG TAB PO PRN (13:15)
[2016-09-21] MEDS ORDERED: SODIUM PHOSPHATE INJ 30 MMOL in SODIUM CHLOR 0.9% 250 ML INJ 240 ML IV PRN (13:15)
[2016-09-21] MEDS ORDERED: MAGNESIUM OXIDE 400 MG TAB PO PRN (13:15)
[2016-09-21] MEDS ORDERED: POTASSIUM CHLOR 40 MEQ PREMIX 100 ML IV PRN ×2 (13:15)
[2016-09-21] MEDS ORDERED: MAGNESIUM SULFATE INJ 2 GM in SODIUM CHLORIDE 0.9% INJ 96 ML IV PRN (13:15)
[2016-09-21] MEDS ORDERED: POTASSIUM PHOSPHATE INJ 30 MMOL in SODIUM CHLOR 0.9% 250 ML INJ 250 ML IV PRN (13:15)
[2016-09-21] MEDS ORDERED: POTASSIUM PHOSPHATE MONOBASIC 500 MG TAB PO/TUBE PRN (13:15)
--- NOTE | 2016-09-21 13:40 | HHI.CCPN ---
Subjective Remarks/Hospital Course The patient is a 71-year-old male with past medical history significant for COPD, aortic stenosis, hypertension and diabetes who presented to the emergency department with progressive shortness of breath and nonproductive cough for last 5 days. He was diagnosed and admitted to service on with [id number] [place], COPD exacerbation and probable pneumonia. He had a previous heart catheterization in 2014, was told at that time he needed to have aortic valve replacement. He was started on IV antibiotics with Rocephin and azithromycin and also was placed on IV steroids and DuoNeb breathing treatment for probable COPD exacerbation. All the cultures so far negative, also negative for influenza A and B, negative for Streptococcus and Legionella antigen. Cardiology was consulted, and echo showed moderate to severe aortic stenosis. Cardiothoracic surgery was also consulted and is following, plan for cardiac catheterization this Tuesday. A Halicat was called today as the patient was increasingly lethargic with increased dyspnea and hypoxia. He desaturated to the 70% when RN attempted to move him. Chest x-ray showed bilateral pulmonary edema worsening compared to admission. He was moved to the ICU and critical care medicine was consulted. I evaluated the patient in ICU. He is tachypneic on 100% nonrebreather. Examination revealed bilateral crackles. 60 mg of IV Lasix stat given and patient was ordered to be placed on BiPAP at 06/16. BNP was 658 SUBJECT 09/05/16: Patient did not tolerate BiPAP overnight. Currently remains on partial nonrebreather. Urine output more than 6 L in 24 hours. He developed atrial flutter with RVR, was placed on esmolol which I have changed to Cardizem. Chest x-ray shows interval improvement in my review 09/06/16: Remains on pNRB. sputum cx with strep pneumo. Urine out put diminishing. 1L bolus given with adequate response. Bilateral lung infiltrate. Discussed with Dr. Dudley. Will hold off cath until Reps failure/ALI improves and renal failure improves 09.07 Patient is on BIPAP 06/16 with FIO2 65%. Afebrile. 09/08 Patient is off BIPAP on Bumex drip 2mg/hr with UO 7.6L in 24 hrs. Afebrile feeling better. Renal function improving with Cr 1.52 from 2.07. 09/09 Patient is on partial rebreather with good sats. Afebrile. Renal function improving with Cr: 1.09 from 1.52. Remains on Bumex drip down 0.5mg/hr. 09/10 Patient was placed on Amio drip yesterday . Afebrile. Off Bumex drip. 09/11 No acute events overnight. Remains on Amio drip. On partial rebreather. CT chest last night showed no PE. 09/12 No acute events overnight. Remains on partial rebreather, off Amio drip. Afebrile. 09/13 Patient was intubated yesterday for resp distress and hypoxemia. Sedated with Diprivan and Fentanyl. Afebrile. On PRVC/AC RR 18, TV 550, PEEP: 10, FIO2 60%. 09/14 Patient is sedated with Diprivan and Fentanyl. Off Bumex drip, afebrile. Cr 1.53 today from 1.41. 09/15: Remains sedated. FiO2 70% with PEEP of 10. CXR unchanged. Creat 1.57. CXR remains same with bilateral infiltrates 09/16: Remains intubated sedated. FiO2 at 50% with a PEEP of 12. Chest x-ray unchanged to slightly improved. Urine output 2.4 L in 24 hours after starting Bumex 2 mg IV every 12 yesterday by nephrology. Creatinine stable to slightly improved 09/17 Patient is sedated with Diprivan/Fentanyl and intubated. On PRVC/AC RR 20 , TV 550, IT:0.9, PEEP:12, FIO2 50%. Afebrile. 09/18: very high peak pressures in the 40s despite conservative PRVC settings. still grossly volume overloaded. also spiked new fever to 102 today, off abx. minimal secretions. very critically ill. 09/19: peak pressures slightly improved. no significant improvement in overall function. still volume overloaded. no longer febrile. sputum gram stain rare GPCs, but this was the same as the last gram stain on 09/13 which did not grow any single bacterial strain. 09/20: still poor uop and net even fluid balance despite aggressive diuresis and persistent volume overload. may need to discuss tracheostomy in near future. no improvements in mechanical ventilation. 09/21: good diuresis with diamox/diuril/bumex yesterday with net -1L. resp status slightly better. mental status poor, but likely combination of hypoactive delirium and poor sedation metabolism. Objective Vital Signs Date Time Temp Pulse Resp B/P Pulse Ox O2 Delivery O2 Flow Rate FiO2 09/21/16 12:57 92 45 09/21/16 10:00 74 09/21/16 08:00 Mechanical Ventilator 09/21/16 08:00 100.1 20 102/52 09/18/16 04:00 15.00 Intake and Output 09/20/16 09/20/16 09/21/16 08:00 16:00 00:00 Intake Total 439 ml 643 ml 795 ml Output Total 350 ml 1750 ml 1600 ml Balance 89 ml -1107 ml -805 ml Result Diagram: 09/21/16 0642 09/21/16 0642 Other Results Microbiology Date/Time Procedure Status Source Growth 09/18/16 17:30 Gram Stain - Final Complete Sputum Endotracheal 09/18/16 17:30 Sputum Culture - Final Complete Sputum Endotracheal LIGHT GROWTH NORMAL RESPIRATORY FREDY 09/21/16 06:30 Stool Occult Blood (CASSIDY) - Final Complete Stool Stool HEMOCCULT POSITIVE Imaging Last Impressions Chest X-Ray 09/16/16 0600 Signed Impressions: Service Date/Time: September 05:38 - CONCLUSION: 1. Stable patchy, bilateral airspace disease with interstitial prominence. 2. Improving left sided effusion. 3. Stable position of life support tubes. Delfino Sylvseter MD Lower Extremity Ultrasound 09/11/16 0000 Signed Impressions: Service Date/Time: Sunday, September 11, 2016 12:30 - CONCLUSION: No DVT is identified within either lower extremity. Frank Young MD CT Angiography 09/10/16 0000 Signed Impressions: Service Date/Time: Sunday, September 11, 2016 01:05 - CONCLUSION: No evidence of pulmonary embolism. Frank Hardin MD Abdomen Ultrasound 09/07/16 0000 Signed Impressions: Service Date/Time: Wednesday, September 07, 2016 16:45 - CONCLUSION: Heterogeneous hepatic echotexture consistent with chronic liver disease. Splenomegaly Mild to moderate ascites Mildly thickened gallbladder wall without evidence of gallstones. No evidence of hydronephrosis. Isidro Oliver MD Upper Extremity Ultrasound 09/06/16 0000 Signed Impressions: Service Date/Time: Tuesday, September 06, 2016 20:43 - CONCLUSION: No evidence of DVT. Isidro Oliver MD Chest CT 09/05/16 0000 Signed Impressions: Service Date/Time: Monday, September 05, 2016 15:37 - CONCLUSION: 1. Cardiomegaly with diffuse ground glass densities and consolidation likely pulmonary edema and/or pneumonia. 2. Small bilateral pleural effusions. 3. Prominent lymphadenopathy in the mediastinum. Cameron Archer MD Objective Remarks Gen: 71-year-old male lying in bed intubated and sedated. Head: Normocephalic. Atraumatic. EENT: Pupils equal round and reactive to light. Cardiovascular: S1-S2 normal. Systolic murmur heard in the aortic area Respiratory: B/l equal air entry with coarse BS. peak pressures improved. Abdomen: Soft, nontender, nondistended. No peritoneal signs. Musculoskeletal: No gross deformities. No edema. Skin: No obvious rashes or erythema. Neuro: Sedated. Withdraws extremities to pain. Moves all extremities spontaneously on sedation lightening. does not follow commands. A/P Assessment and Plan NEURO: -Monitor neuro status -On Diprivan and Fentanyl infusion for sedation and vent synchrony. Daily sedation vacation. -if patient tolerates, will attempt longer sedation vacation to allow for more sedation metabolism. RESP: Acute hypoxemic respiratory failure ARDS Pneumococcal pneumonia COPD exacerbation -PRVC. will continue to wean as tolerated. not ready for SBT yet. -Continue with vent support keep sat >90% -Bronchodilators. -3/3 CTA chest - no PE - continues to be volume overloaded, which is his biggest noe to successful weaning of mechanical ventilation. CV: Severe aortic stenosis CHF NSTEMI -Monitor HR and BP keep MAP>65mmHg -Continue aspirin, Coreg 6.25mg BID, -hold Hydralazine 50mg Q8 given borderline pressures. -Echo showed EF 50-55%, mod-severe -Cardiothoracic surgery and cardiology Dr. Dudley is following -[facility] on hold due to resp failure and renal failure- Dr. Dudley. GI: -Elevated LFT's..trending down Hypernatremia- resolved. -On Glucerna 1.5@45ml/hr. -Protonix for GI prophylaxis -Monitor LFT's ( trending down) -US abdomen: Chronic liver disease. Splenomegaly Mild to moderate ascites Mildly thickened gallbladder wall without evidence of gallstones. No evidence of hydronephrosis. -hypernatremia resolved. holding free water. : Acute kidney injury. Hyponatremia.. resolved Volume overload -Monitor renal function, I/O's, avoid nephrotoxins. -Renal- Dr. Roa. Renal US: No hydronephrosis -will hold bumex 2mg intermittent and start bumex infusion, 2mg/hr. -continue daily diuril. -continue diamox 500mg iv q8h x 3 doses for contraction alkalosis -continue with an additional 24h of concentrated albumin to help preserve intravascular volume status in the setting of severe Aortic stenosis and acute kidney injury. -daily BMP ID: Severe Sepsis Pneumococcal pneumonia -Off abx per ID -Sputum culture positive for strep pneumo. Influenza negative -new cultures 09/18 NGTD. still holding off on abx. HEME: -Monitor CBC, CMP, coags. Hep PLT ab positive, TIGIST negative, Heme is following ENDO: Type 2 diabetes Hypothyroidism -much better glycemic control today. continue high scale SSI, q4h. continue Levemir 20u q12h. -rapid prednisone taper: 5mg x 1 day, then off. -Continue Synthroid 50 mcg daily. TSH: 0.373 PROPH: -Bilateral lower extremity SCDs. Protonix for GI prophylaxis. SQH. LINES: -Utilize peripheral IVs, OVERALL IMPRESSION: 71yM with severe acute hypoxic and hypercarbic respiratory failure with little to no improvement after a lengthy mechanical ventilation. volume overload persists. Aortic stenosis makes hemodynamics and additional cardiovascular optimization difficult and the combination of these organ dysfunctions may ultimately lead to his during this hospital stay. He remains critically ill at this point. This patient remains critically ill with one or more organ systems which are or may become a threat to life. I have spent in excess of 42 minutes discontinuously in the care and management of this patient. This time is exclusive of procedures, and includes, but is not limited to, evaluation of the patient, review of the medical record, discussions with family, consultants, nursing staff, or respiratory therapy, and documentation in the medical record. Ed Cohen MD Sep 21, 2016 13:40
[2016-09-21] MEDS: BUMETANIDE INJ 100 ML IV SCH (13:55)
[2016-09-21 14:52] LABS: MAGNESIUM 2.7 MG/DL (1.5-2.5); POTASSIUM 3.4 MEQ/L (3.5-5.1)
--- NOTE | 2016-09-21 19:40 | HHI.PR ---
Subjective Remarks 71 YOWM with Resp insuf, COPD,Lung infilt No fever Pt intubated On AC 16,Fi02 45% Sedated tolerates vent remains on PRVC Objective Vital Signs Vital Signs Date Time Temp Pulse Resp B/P Pulse Ox O2 Delivery O2 Flow Rate FiO2 09/21/16 18:00 84 09/21/16 16:41 93 45 09/21/16 16:00 45 09/21/16 16:00 80 09/21/16 16:00 91 Mechanical Ventilator 45 09/21/16 16:00 100.3 80 20 121/56 91 09/21/16 14:00 77 09/21/16 12:57 92 45 09/21/16 12:00 100.4 75 20 102/53 94 09/21/16 12:00 75 09/21/16 12:00 45 09/21/16 12:00 94 Mechanical Ventilator 45 09/21/16 10:00 74 09/21/16 08:45 98 45 09/21/16 08:00 94 Mechanical Ventilator 45 09/21/16 08:00 100.1 74 20 102/52 94 09/21/16 08:00 74 09/21/16 08:00 45 09/21/16 06:00 107 09/21/16 04:21 94 50 09/21/16 04:00 50 09/21/16 04:00 97 Mechanical Ventilator 50 09/21/16 04:00 72 09/21/16 04:00 98.9 72 20 131/60 97 09/21/16 02:00 72 09/21/16 01:47 94 50 09/21/16 00:00 50 09/21/16 00:00 98.6 70 20 98/55 94 09/21/16 00:00 70 09/21/16 00:00 94 Mechanical Ventilator 50 09/20/16 22:29 94 45 09/20/16 22:00 69 09/20/16 20:40 94 45 09/20/16 20:00 99.1 73 20 113/58 94 09/20/16 20:00 94 Mechanical Ventilator 45 09/20/16 20:00 45 09/20/16 20:00 67 I/O 3/13/17 3/13/17 3/13/17 3/14/17 3/14/17 3/14/17 07:00 15:00 23:00 07:00 15:00 23:00 Intake Total 439 ml 643 ml 795 ml 970 ml 1182 ml Output Total 350 ml 1750 ml 1600 ml 400 ml 775 ml Balance 89 ml -1107 ml -805 ml 570 ml 407 ml IV Total 162 ml 181 ml 162 ml 133 ml 186 ml Tube Feeding 277 ml 462 ml 333 ml 237 ml 396 ml Other 300 ml 600 ml 600 ml Output Urine Total 350 ml 1750 ml 1600 ml 400 ml 775 ml # Bowel Movements 2 0 0 1 1 Result Diagram: 09/21/16 0642 09/21/16 1402 Objective Remarks GENERAL: Obese WM, mild sob SKIN: Warm and dry. HEAD: Normocephalic. EYES: No scleral icterus. No injection or drainage. NECK: Supple, trachea midline. No JVD or lymphadenopathy. CARDIOVASCULAR: Regular rate and rhythm without murmurs, gallops, or rubs. RESPIRATORY: Breath sounds equal bilaterally. No accessory muscle use. GASTROINTESTINAL: Abdomen soft, non-tender, nondistended. MUSCULOSKELETAL: No cyanosis, or edema. BACK: Nontender without obvious deformity. No CVA tenderness. A/P Assessment and Plan Resp Failure, on Vent COPD Lung infilt DM Ch. Pain PLAN: Cont Abx Vent Support, AC16, Fi02 45% Aerosol nebs Monitor BS Monitor renal functions Sedation for vent synchrony Kai Escobedo MD Sep 21, 2016 19:40
[2016-09-21] MEDS: traZODone HCL 100 MG TAB PO SCH (21:33)
[2016-09-21 22:19] LABS: BICARBONATE 40.8 MEQ/L (21.0-32.0); MAGNESIUM 2.6 MG/DL (1.5-2.5)
[2016-09-21 22:27] LABS: POTASSIUM 2.8 MEQ/L (3.5-5.1)
[2016-09-21] MEDS: POTASSIUM CHLOR 20 MEQ PREMIX 100 ML IV PRN (23:03)
[2016-09-22] VITALS (16 sets, daily range): BP systolic 95–153; BP diastolic 52–66; PULSE 74–98; RESP 19–24; TEMP 99.5–102.9; O2SAT 91–99
[2016-09-22] MEDS: POTASSIUM CHLOR 20 MEQ PREMIX 100 ML IV PRN ×6 (01:19→20:42)
[2016-09-22] MEDS: PROPOFOL 1000 MG/100 ML INJ 100 ML IV SCH ×2 (01:35→06:18)
[2016-09-22] MEDS: INSULIN NovoLIN REGULAR SUPPLEMENTAL SCALE SQ SCH ×6 (01:36→20:47)
[2016-09-22] MEDS: INSULIN DETEMIR 100 UNITS/ML VIAL SQ SCH ×3 (01:36→20:42)
[2016-09-22 04:20] LABS: MEAN CELL VOLUME 85.3 FL (80.0-100.0); MEAN CORPUSCULAR HEMOGLOBIN 28.1 PG (27.0-34.0); MEAN CORPUSCULAR HGB CONC 32.9 % (32.0-36.0); PLATELET COUNT 88 TH/MM3 (150-450); RED BLOOD COUNT 2.81 MIL/MM3 (4.50-5.90); RED CELL DISTRIBUTION WIDTH 16.5 % (11.6-17.2); WHITE BLOOD COUNT 6.1 TH/MM3 (4.0-11.0)
[2016-09-22 04:24] LABS: REVIEW FLAG FINAL
[2016-09-22 04:43] LABS: BICARBONATE 38.6 MEQ/L (21.0-32.0); MAGNESIUM 2.6 MG/DL (1.5-2.5); POTASSIUM 3.1 MEQ/L (3.5-5.1)
[2016-09-22] MEDS: ALBUMIN HUMAN 25% 12.5 GM/50 ML BAGP IV SCH (06:06)
[2016-09-22] MEDS: LEVOTHYROXINE SODIUM 50 MCG TAB PO SCH (06:09)
[2016-09-22] MEDS: PANTOPRAZOLE SODIUM 40 MG VIAL IV PUSH SCH ×2 (06:09→17:01)
[2016-09-22] MEDS: BUMETANIDE INJ 100 ML IV SCH ×2 (06:10→15:46)
--- NOTE | 2016-09-22 07:23 | HHI.FPPN ---
Subjective Remarks Patient resting comfortably. On propofol and fentanyl ggt as well as bumex. - 2.5 L over past 24 hrs. Maintaining BP 120/70. Not responsive to commands. Trying sedation vacations and monitoring respiratory status. Palliative care has been consulted given poor clinical condition and request of family. ( Rio Beckford MD R2) Objective Vitals Vital Signs Date Time Temp Pulse Resp B/P Pulse Ox O2 Delivery O2 Flow Rate FiO2 09/22/16 04:33 93 45 09/22/16 02:00 78 09/22/16 01:20 91 45 09/22/16 00:00 78 09/22/16 00:00 45 09/22/16 00:00 100.8 87 20 119/58 91 09/22/16 00:00 Mechanical Ventilator 45 09/21/16 22:34 92 45 09/21/16 22:00 89 09/21/16 20:37 92 45 09/21/16 20:00 Mechanical Ventilator 45 09/21/16 20:00 87 09/21/16 20:00 100.9 81 20 145/67 93 09/21/16 20:00 45 09/21/16 18:00 84 09/21/16 16:41 93 45 09/21/16 16:00 45 09/21/16 16:00 80 09/21/16 16:00 91 Mechanical Ventilator 45 09/21/16 16:00 100.3 80 20 121/56 91 09/21/16 14:00 77 09/21/16 12:57 92 45 09/21/16 12:00 100.4 75 20 102/53 94 09/21/16 12:00 75 09/21/16 12:00 45 09/21/16 12:00 94 Mechanical Ventilator 45 09/21/16 10:00 74 09/21/16 08:45 98 45 09/21/16 08:00 94 Mechanical Ventilator 45 09/21/16 08:00 100.1 74 20 102/52 94 09/21/16 08:00 74 09/21/16 08:00 45 I/O 09/21/16 09/21/16 09/21/16 09/22/16 09/22/16 09/22/16 07:00 15:00 23:00 07:00 15:00 23:00 Intake Total 970 ml 1182 ml 483 ml Output Total 400 ml 775 ml 3800 ml Balance 570 ml 407 ml -3317 ml IV Total 133 ml 186 ml 136 ml Tube Feeding 237 ml 396 ml 347 ml Other 600 ml 600 ml Output Urine Total 400 ml 775 ml 3800 ml # Bowel Movements 1 1 0 (Rio Beckford MD R2) Result Diagram: 09/22/1640109/22/16401 Objective Remarks Gen.: Lying in bed, intubated, sedated. Head: Normocephalic. Atraumatic. EENT: Pupils equal round and reactive to light. Nose without drainage. Airway intact. Cardiovascular: Regular rate and rhythm. Systolic ejection murmur along left sternal border. Respiratory: CTAB bilaterally. Abdomen: Soft, nontender, nondistended. No peritoneal signs. Musculoskeletal: No gross deformities. Edema noted. Skin: No obvious rashes or erythema. Neuro: Intubated, sedated. Moves spontaneously : [place] in place draining educating her Extremities: Compression boots on bilaterally (Rio Beckford MD R2) A/P Assessment and Plan 71-year-old male who presented with a 5-day history of shortness of breath and nonproductive cough. ACS rule out positive for NSTEMI. Patient has a history of COPD and was admitted with sepsis with cardiology consultation for NSTEMI. Developed respiratory distress on 09/04 and was transferred to the ICU with critical care consult. Tolerated BiPAP vs nonrebreather vs nasal cannula for several days, but due to worsening respiratory distress, he was intubated on 09/12. Cardiology to perform left heart catheterization when clinically better. Pulmonology on board. Nephrology consulted for PHILIPPE. Hematology consulted due to thrombocytopenia. Currently being managed by critical care physician. On fentanyl and propofol at this time. 09/21/16: Palliative care consulted per 's request; she notes that she and patient's son have different views on patient's prognosis and she thinks Palliative Care would be helpful in EOL planning as patient "doesn't have any papers" identifying his own wishes. Discharge Planning Unclear prognosis at this time (Rio Beckford MD R2) Attending Attestation Patient seen and examined. Case reviewed and discussed. Agree with plan of care as discussed with me and documented in the resident note. (She Harris MD) Problem List: (1) ARDS (adult respiratory distress syndrome) Status: Acute Plan: Intubated and sedated in the ICU, peak pressures approximately 40s, PEEP of 8 today -Critical care managing - will follow recs -Consider placing in a prone bed -Decrease FiO2 as tolerated at FiO2 of 45%, per respiratory patient desaturates with any movement. -Daily sedation vacation -Steroids per critical care -DuoNebs every 6 hours -I's and O's -Daily weights (2) NSTEMI (non-ST elevated myocardial infarction) Status: Acute Plan: -Patient with elevated troponins to 1.[address] elevations in V1 V3 on admission -Cardiology signed off - may reconsult after clinical improvement -Left heart catheter when clinically able to tolerate procedure -Continue medical management (3) Aortic stenosis Status: Acute Plan: -Cardiothoracic surgery consulted -Cardiology and cardiothoracic surgery to discuss plans going forward -Will need to optimize medical management prior to performing any procedures -Pulmonology consulted given high surgical risk- appreciate recommendations (4) Pneumonia Status: Resolved Plan: -Strep pneumoniae in sputum culture -Ceftarolin 300 mg IV discontinued -WBC stable at 6,000. Low grade temperatures of 100.9. F. -Procalcitonin wnl on 09/15 -Infectious disease has signed off (5) CHF due to valvular disease Status: Acute Plan: Echo performed on 09/02 showed EF of 5055 percent. -Aortic valve with moderate to severe stenosis -Coreg 3.125 mg by mouth every 12 hours (6) PHILIPPE (acute kidney injury) Status: Acute Plan: Stable -Nephrology on board -Monitor I's and O's -Avoid nephrotoxins -Off Bumex drip -Bumex ggt, d/c diuril. Good UO -2.5 L in 24 hours. (7) Thrombocytopenia Status: Acute Plan: Stable -Transfuse for platelets less than 20K -Decreased aspirin to 81mg daily, discontinue for platelets less than 40K -Hematology consulted -Suspect due to DIC/Consumption--fibrinogen preserved -Heparin subcutaneous discontinued -HIT positive, but likely false positive, TIGIST wnl and result does not support HIT -Hepatitis panel negative -Abdominal ultrasound on 09/07 shows heterogeneous hepatic echo texture consistent with chronic liver disease, splenomegaly, mild to moderate ascites -Continue to monitor daily CBC (8) Diabetes Status: Chronic Plan: Patient's home regimen is NPH 25 units every morning and 50 units daily at bedtime -Intubated, on Glucerna tube feeds -Currently on Levemir 20 units twice a day per critical care -Continue high scale SSI -Taper steroids -Adjust insulin regimen as needed (9) COPD exacerbation Status: Acute Plan: Patient with known COPD and [id number]-[id number] history of smoking Albuterol every 2 hours when necessary DuoNeb nebs every 4 hours scheduled Prednisone 10 mg taper per CC (10) Hypertension Status: Chronic Plan: Carvedilol 6.25 bid q 12 hr. (11) Anxiety and depression Status: Chronic Plan: -Continue home meds on adjusted regimen -Trazodone 100 mg by mouth daily - -Sertraline 100 mg by mouth daily - taper to 50mg -Buspirone 10mg BID - hold -Primidone 100mg PO BID - continue (12) FEN/DVT PPX/GI PPX Status: Acute Plan: Fluids: per CC Electrolytes: Will monitor and replace as needed Nutrition: Tube feeds, Glucerna DVT Prophylaxis: Bilateral SCDs, heparin discontinued due to thrombocytopenia GI Prophylaxis: None currently wdw Dr. Harris. (Rio Beckford MD R2) Problem Qualifiers (1) Aortic stenosis: Qualified Code: I35.0 - Aortic valve stenosis, unspecified etiology (2) Pneumonia: Qualified Code: J18.9 - Pneumonia of both lungs due to infectious organism, unspecified part of lung (3) Diabetes: (4) Hypertension: Qualified Code: I10 - Essential hypertension Rio Beckford MD R2 Sep 22, 2016 07:23 She Harris MD Sep 23, 2016 17:41
[2016-09-22 08:04] LABS: MAGNESIUM 2.6 MG/DL (1.5-2.5); POTASSIUM 3.1 MEQ/L (3.5-5.1)
[2016-09-22] MEDS: PRIMIDONE 50 MG TAB PO SCH ×3 (09:18→17:02)
[2016-09-22] MEDS: FERROUS SULFATE 300 MG /5ML UDC PO SCH ×2 (09:18→20:42)
[2016-09-22] MEDS: predniSONE 5 MG/5 ML CUP PO SCH (09:18)
[2016-09-22] MEDS: SERTRALINE HCL 50 MG TAB PO SCH (09:19)
[2016-09-22] MEDS: DOCUSATE SODIUM 50 MG/SENNA 8.6 MG TAB PO SCH (09:19)
[2016-09-22] MEDS: CARVEDILOL 6.25 MG TAB PO SCH ×2 (09:19→20:42)
[2016-09-22] MEDS: ASPIRIN 81 MG CHEW TAB PO SCH (09:19)
--- NOTE | 2016-09-22 10:00 | RADRPT ---
EXAM DATE/TIME: 09/22/2016 07:48 [facility] COMPARISON: CHEST SINGLE AP, September 18, 2016, 2:48. INDICATIONS : Respiratory Disease MEDICAL HISTORY : Hypertension. Chronic obstructive pulmonary disease. Cardiovascular disease SURGICAL HISTORY : None. ENCOUNTER: Subsequent ACUITY: 2 weeks PAIN SCORE: Non-responsive. LOCATION: Bilateral chest FINDINGS: The ET tube is 4 cm from the brynn. An NG tube is in place with tip directed into the stomach. The heart size is within normal limits. The lungs demonstrate diffuse mixed interstitial and alveolar c onsolidation. The costophrenic angles are clear. CONCLUSION: 1. Diffuse consolidation likely representing diffuse processes such as edema, diffuse infection or A RDS. Frank Og MD on September 22, 2016 at 9:49 Board Certified Radiologist. This report was verified electronically.
--- NOTE | 2016-09-22 10:54 | HHI.NPPN ---
Subjective Complaints: Confused, Shortness of Breath General Problems: Edema Renal Failure: Chronic, Acute Interval History Renal function is stable. He was started on Bumex gtt. Has been febrile. ( Prachi Palencia) Review of Systems General General Remarks unable to evaluate (Prachi Palencia) Objective Data Data 09/21/16 09/22/16 19:00 07:00 Intake Total 1182 ml 1412 ml Output Total 775 ml 5250 ml Balance 407 ml -3838 ml IV Total 186 ml 709 ml Tube Feeding 396 ml 703 ml Other 600 ml Output Urine Total 775 ml 5250 ml # Bowel Movements 1 1 Vital Signs Date Time Temp Pulse Resp B/P Pulse Ox O2 Delivery O2 Flow Rate FiO2 09/22/16 08:51 92 50 09/22/16 06:00 79 09/22/16 04:33 93 45 09/22/16 04:00 75 09/22/16 04:00 Mechanical Ventilator 45 09/22/16 04:00 99.5 75 20 113/57 92 09/22/16 04:00 45 09/22/16 02:00 78 09/22/16 01:20 91 45 09/22/16 00:00 78 09/22/16 00:00 45 09/22/16 00:00 100.8 87 20 119/58 91 09/22/16 00:00 Mechanical Ventilator 45 09/21/16 22:34 92 45 09/21/16 22:00 89 09/21/16 20:37 92 45 09/21/16 20:00 Mechanical Ventilator 45 09/21/16 20:00 87 09/21/16 20:00 100.9 81 20 145/67 93 09/21/16 20:00 45 09/21/16 18:00 84 09/21/16 16:41 93 45 09/21/16 16:00 45 09/21/16 16:00 80 09/21/16 16:00 91 Mechanical Ventilator 45 09/21/16 16:00 100.3 80 20 121/56 91 09/21/16 14:00 77 09/21/16 12:57 92 45 09/21/16 12:00 100.4 75 20 102/53 94 09/21/16 12:00 75 09/21/16 12:00 45 09/21/16 12:00 94 Mechanical Ventilator 45 (Prachi Palencia) -: 09/22/16 0402 09/22/16 0722 Tubes & Lines: [place] Drip Comment fentanyl, propofol (both on hold) (Prachi Palencia) Physical Exam General Appearance: Well Developed, Well Nourished, No Acute Distress Appearance Remarks intubated but awake on vent (Prachi Palencia) Throat Throat Exam: Oral Mucosa [place] & Moist (Prachi Palencia) Pulmonary Resp Exam: Breath Sounds Equal, Crackles, Decreased Bases (Prachi Palencia) Cardiology CV Exam: Regular, Good Perfusion (Prachi Palencia) Gastrointestinal/Abdomen GI Exam: Soft, Non-Tender, Bowel Sounds Present (Prachi Palencia) Genitourinary Exam: Clear Urine (Prachi Palencia) Musculoskeletal MS Exam: Joints Intact, Normal Gait, Normal Tone (Prachi Palencia) Integumentary Skin Exam: Clear, Warm, Dry, Intact (Prachi Palencia) Extremeties Extremities Exam: Pedal Pulses Palpable, Moderate Edema (Prachi Palencia) Neurologic Neuro Exam: Awake, Obtunded, Unresponsive (Prachi Palencia) Psychiatric Psych Exam: Appropriate Responses (Prachi Palencia) Assessment/Plan Discussed Condition With: Spouse, Relative Assessment Summary: PHILIPPE/Acute Renal Failure Problem List: (1) PHILIPPE (acute kidney injury) Plan: ARF due to ATN, secondary to renal hypoperfusion injury (sepsis, hypotension, A fib RVR) renal function is stable he was placed on Bumex gtt at 2 mg/hr, has had good response he is also on Diamox TID hypernatremia corrected, free water on hold follow electrolytes, K was replaced BUN high, may be due to steroids avoid nephrotoxins, heart cath on hold ortega in place for I/O measurement daily renal panel (2) Congestive heart failure (CHF) Plan: monitor fluid volume status diuresis as above (3) Diabetes Plan: continue insulin therapy monitor glucose, goal 140-180 mg/dL (4) Hypertension Plan: BP stable, continue antihypertensives (5) Severe sepsis Plan: previously being treated for strep pneumonia now with ARDS type presentation, 02 requirement at 50% ID following, off antibiotics WBC normalized (6) Aortic stenosis Plan: cardiology signed off until he is extubated plan for heart cath if clinically improved (7) A-fib Plan: rate controlled (Prachi Palencia) Plan patient was seen and examined. Agree with above assessment and plan. Excellent diuresis, renal function is stable, however no improvement in oxygen requirement. (Gentry Roa MD) Problem Qualifiers (1) Congestive heart failure (CHF): (2) Diabetes: (3) Hypertension: Qualified Code: I10 - Essential hypertension (4) Aortic stenosis: Qualified Code: I35.0 - Aortic valve stenosis, unspecified etiology (5) A-fib: Qualified Code: I48.91 - Atrial fibrillation, unspecified type Prachi Palencia Sep 22, 2016 10:53 Gentry Roa MD Sep 22, 2016 19:53
--- NOTE | 2016-09-22 11:02 | HHI.CCPN ---
Subjective Remarks/Hospital Course The patient is a 71-year-old male with past medical history significant for COPD, aortic stenosis, hypertension and diabetes who presented to the emergency department with progressive shortness of breath and nonproductive cough for last 5 days. He was diagnosed and admitted to service on with [id number] IA, COPD exacerbation and probable pneumonia. He had a previous heart catheterization in 2014, was told at that time he needed to have aortic valve replacement. He was started on IV antibiotics with Rocephin and azithromycin and also was placed on IV steroids and DuoNeb breathing treatment for probable COPD exacerbation. All the cultures so far negative, also negative for influenza A and B, negative for Streptococcus and Legionella antigen. Cardiology was consulted, and echo showed moderate to severe aortic stenosis. Cardiothoracic surgery was also consulted and is following, plan for cardiac catheterization this Tuesday. A Halicat was called today as the patient was increasingly lethargic with increased dyspnea and hypoxia. He desaturated to the 70% when RN attempted to move him. Chest x-ray showed bilateral pulmonary edema worsening compared to admission. He was moved to the ICU and critical care medicine was consulted. I evaluated the patient in ICU. He is tachypneic on 100% nonrebreather. Examination revealed bilateral crackles. 60 mg of IV Lasix stat given and patient was ordered to be placed on BiPAP at 06/16. BNP was 658 SUBJECT 09/05/16: Patient did not tolerate BiPAP overnight. Currently remains on partial nonrebreather. Urine output more than 6 L in 24 hours. He developed atrial flutter with RVR, was placed on esmolol which I have changed to Cardizem. Chest x-ray shows interval improvement in my review 09/06/16: Remains on pNRB. sputum cx with strep pneumo. Urine out put diminishing. 1L bolus given with adequate response. Bilateral lung infiltrate. Discussed with Dr. Dudley. Will hold off cath until Reps failure/ALI improves and renal failure improves 09.07 Patient is on BIPAP 06/16 with FIO2 65%. Afebrile. 09/08 Patient is off BIPAP on Bumex drip 2mg/hr with UO 7.6L in 24 hrs. Afebrile feeling better. Renal function improving with Cr 1.52 from 2.07. 09/09 Patient is on partial rebreather with good sats. Afebrile. Renal function improving with Cr: 1.09 from 1.52. Remains on Bumex drip down 0.5mg/hr. 09/10 Patient was placed on Amio drip yesterday . Afebrile. Off Bumex drip. 09/11 No acute events overnight. Remains on Amio drip. On partial rebreather. CT chest last night showed no PE. 09/12 No acute events overnight. Remains on partial rebreather, off Amio drip. Afebrile. 09/13 Patient was intubated yesterday for resp distress and hypoxemia. Sedated with Diprivan and Fentanyl. Afebrile. On PRVC/AC RR 18, TV 550, PEEP: 10, FIO2 60%. 09/14 Patient is sedated with Diprivan and Fentanyl. Off Bumex drip, afebrile. Cr 1.53 today from 1.41. 09/15: Remains sedated. FiO2 70% with PEEP of 10. CXR unchanged. Creat 1.57. CXR remains same with bilateral infiltrates 09/16: Remains intubated sedated. FiO2 at 50% with a PEEP of 12. Chest x-ray unchanged to slightly improved. Urine output 2.4 L in 24 hours after starting Bumex 2 mg IV every 12 yesterday by nephrology. Creatinine stable to slightly improved 09/17 Patient is sedated with Diprivan/Fentanyl and intubated. On PRVC/AC RR 20 , TV 550, IT:0.9, PEEP:12, FIO2 50%. Afebrile. 09/18: very high peak pressures in the 40s despite conservative PRVC settings. still grossly volume overloaded. also spiked new fever to 102 today, off abx. minimal secretions. very critically ill. 09/19: peak pressures slightly improved. no significant improvement in overall function. still volume overloaded. no longer febrile. sputum gram stain rare GPCs, but this was the same as the last gram stain on 09/13 which did not grow any single bacterial strain. 09/20: still poor uop and net even fluid balance despite aggressive diuresis and persistent volume overload. may need to discuss tracheostomy in near future. no improvements in mechanical ventilation. 09/21: good diuresis with diamox/diuril/bumex yesterday with net -1L. resp status slightly better. mental status poor, but likely combination of hypoactive delirium and poor sedation metabolism. 09/22: Diet resting well urine output 6 L in 24 hours, creatinine remains stable at 1.5. Chest x-ray history unchanged with bilateral infiltrates/ARDS. Will reduce PEEP to 8 if tolerated Objective Vital Signs Date Time Temp Pulse Resp B/P Pulse Ox O2 Delivery O2 Flow Rate FiO2 09/22/16 08:51 92 50 09/22/16 06:00 79 09/22/16 04:00 Mechanical Ventilator 09/22/16 04:00 99.5 20 113/57 Intake and Output 09/21/16 09/21/16 09/22/16 08:00 16:00 00:00 Intake Total 970 ml 1182 ml 483 ml Output Total 400 ml 775 ml 3800 ml Balance 570 ml 407 ml -3317 ml Result Diagram: 09/22/16 0402 09/22/16 0722 Other Results Microbiology Date/Time Procedure Status Source Growth 09/21/16 06:30 Stool Occult Blood (CASSIDY) - Final Complete Stool Stool HEMOCCULT POSITIVE Imaging Last Impressions Chest X-Ray 09/16/16 0600 Signed Impressions: Service Date/Time: September 05:38 - CONCLUSION: 1. Stable patchy, bilateral airspace disease with interstitial prominence. 2. Improving left sided effusion. 3. Stable position of life support tubes. Delfino Sylvester MD Lower Extremity Ultrasound 09/11/16 0000 Signed Impressions: Service Date/Time: Sunday, September 11, 2016 12:30 - CONCLUSION: No DVT is identified within either lower extremity. Frank Young MD CT Angiography 09/10/16 0000 Signed Impressions: Service Date/Time: Sunday, September 11, 2016 01:05 - CONCLUSION: No evidence of pulmonary embolism. Frank Hardin MD Abdomen Ultrasound 09/07/16 0000 Signed Impressions: Service Date/Time: Wednesday, September 07, 2016 16:45 - CONCLUSION: Heterogeneous hepatic echotexture consistent with chronic liver disease. Splenomegaly Mild to moderate ascites Mildly thickened gallbladder wall without evidence of gallstones. No evidence of hydronephrosis. Isidro Oliver MD Upper Extremity Ultrasound 09/06/16 0000 Signed Impressions: Service Date/Time: Tuesday, September 06, 2016 20:43 - CONCLUSION: No evidence of DVT. Isidro Oliver MD Chest CT 09/05/16 0000 Signed Impressions: Service Date/Time: Monday, September 05, 2016 15:37 - CONCLUSION: 1. Cardiomegaly with diffuse ground glass densities and consolidation likely pulmonary edema and/or pneumonia. 2. Small bilateral pleural effusions. 3. Prominent lymphadenopathy in the mediastinum. Cameron Archer MD Objective Remarks Gen: 71-year-old male lying in bed intubated and sedated. Head: Normocephalic. Atraumatic. EENT: Pupils equal round and reactive to light. Cardiovascular: S1-S2 normal. Systolic murmur heard in the aortic area Respiratory: B/l equal air entry with coarse BS. Abdomen: Soft, nontender, nondistended. No peritoneal signs. Musculoskeletal: No gross deformities. No edema. Skin: No obvious rashes or erythema. Neuro: Sedated. Withdraws extremities to pain. Moves extremities spontaneously on sedation lightening. Does not follow commands. Urinary Catheter: Yes Assessment to: Continue A/P Assessment and Plan NEURO: -Monitor neuro status -On Diprivan and Fentanyl infusion for sedation and vent synchrony. Daily sedation vacation. -Attempt longer sedation vacation, if tolerated to allow for more sedation metabolism. RESP: Acute hypoxemic respiratory failure ARDS Pneumococcal pneumonia COPD exacerbation -PRVC. will continue to wean as tolerated. Attempt short SBT 10/8 for 30 min -Continue with vent support keep sat >90% -Bronchodilators. -3/3 CTA chest - no PE -Continues to be volume overloaded, however pulmonary edema predominantly is noncardiogenic secondary to ARDS CV: Severe aortic stenosis CHF NSTEMI -Monitor HR and BP keep MAP>65mmHg -Continue aspirin, Coreg 6.25mg BID, -hold Hydralazine 50mg Q8 given borderline pressures. -Echo showed EF 50-55%, mod-severe -Cardiothoracic surgery and cardiology Dr. Dudley is following -C on hold due to resp failure and renal failure- Dr. Dudley. GI: -Elevated LFT's..trending down -Hypernatremia- resolved. -On Glucerna 1.5@45ml/hr. -Protonix for GI prophylaxis -Monitor LFT's ( trending down) -US abdomen: Chronic liver disease. Splenomegaly Mild to moderate ascites Mildly thickened gallbladder wall without evidence of gallstones. No evidence of hydronephrosis. -hypernatremia resolved. holding free water. : Acute kidney injury. Hyponatremia.. resolved Volume overload -Monitor renal function, I/O's, avoid nephrotoxins. -Renal- Dr. Roa. Renal US: No hydronephrosis -Bumex infusion, 2mg/hr. -continue daily diuril. -Completed diamox 500mg iv q8h x 3 doses for contraction alkalosis -continue with an additional 24h of concentrated albumin to help preserve intravascular volume status in the setting of severe Aortic stenosis and acute kidney injury. -daily BMP ID: Severe Sepsis Pneumococcal pneumonia -Off abx per ID -Sputum culture positive for strep pneumo. Influenza negative -new cultures 09/18 NGTD. still holding off on abx. HEME: -Monitor CBC, CMP, coags. Hep PLT ab positive, TIGIST negative, Heme is following ENDO: Type 2 diabetes Hypothyroidism -Better glycemic control. continue high scale SSI, q4h. continue Levemir 20u q12h. -rapid prednisone taper -Continue Synthroid 50 mcg daily. TSH: 0.373 PROPH: -Bilateral lower extremity SCDs. Protonix for GI prophylaxis. SQH. LINES: -Utilize peripheral IVs, OVERALL IMPRESSION: 71yM with severe acute hypoxic and hypercarbic respiratory failure with little to no improvement after a lengthy mechanical ventilation. volume overload persists. Aortic stenosis makes hemodynamics and additional cardiovascular optimization difficult and the combination of these organ dysfunctions may ultimately lead to his during this hospital stay. He remains critically ill at this point. This patient remains critically ill with one or more organ systems which are or may become a threat to life. I have spent in excess of 32 minutes discontinuously in the care and management of this patient. This time is exclusive of procedures, and includes, but is not limited to, evaluation of the patient, review of the medical record, discussions with family, consultants, nursing staff, or respiratory therapy, and documentation in the medical record. Minnie Marie MD Sep 22, 2016 11:02
--- NOTE | 2016-09-22 11:03 | PD.CONS ---
Consult Service Palliative Care . Consult Requested By Dr. Mohit Person . Primary Care Physician Non-Staff . Reason for Consultation a. To assist with evaluation and management of symptoms including: encephalopathy; dyspnea; anxiety; depression. b. To assist medical decision maker(s) with: better understanding of current medical conditions; weighing benefits/burdens of medical treatment options; making medical treatment decisions. . HPI History of Present Illness Mr. Gudino is a 71 y/o [place] with a known history of aortic stenosis; diabetes mellitus; COPD; hypothyroidism; hypertension; peptic ulcer disease; osteoarthritis; peripheral neuropathy; long-standing thrombocytopenia; and PTSD who presented to the emergency department on 08/31/16 with a chief complaint of shortness of breath of 5 days' duration. The shortness of breath had been so severe that the patient could barely walk to the bathroom in the 24 hours leading up to admission. He also reported feeling very hot but did not measure his actual temperature. He was given some old metered-dose inhalers as well as some Xanax on 08/28 and some diazepam which helped to calm him down and enable him to sleep. The patient also complained of significant cough which was nonproductive. He complained of dry throat and some daytime sweating. He denied chest pain, chills, headache, nausea, vomiting, diarrhea, abdominal pain. He reported a poor appetite. He did complain of some muscle aches particularly in his shoulders. The patient reported having undergone cardiac catheterization approximately 2.5 years earlier in [place] at the [facility]. He reported that he was told he needed aortic valve replacement. He got a second opinion locally from Dr. Mary and was told that unless he wanted to be more active he could wait until he became symptomatic. The patient told his about 6-8 weeks ago that he might need the valve procedure because he was having some chest pain. He had not mentioned it since then, however. Mr. Gudino was a heavy smoker, smoking continuously throughout the day up until 2008, he has never been on home oxygen and never been on metered dose inhalers or nebulizer treatments. There is no history of severe respiratory infections. He would get short of breath with minimal exertion. The patient has a history of chronic pain. He has long-standing neuropathic type pain in both lower extremities. The neuropathy interferes with his gait. He also has osteoarthritis involving most of the joints but particularly hands and feet. Though he has pain every day, there is rare use of opiate analgesics. Initial vital signs in emergency department course follows: Temperature 99.1; pulse 94; respiratory rate 20; blood pressure 151/79; pulse oximetry 96% on O2 via nasal cannula at 2 L a minute. Examination by the emergency order department supervisor revealed the following: There was decreased aeration bilaterally in both lung gallardo. No accessory muscle use. Patient was able to talk in short sentences. Exam was otherwise unremarkable. Initial diagnostic testing revealed the following: * CBC showed WBC 8.5; hemoglobin 11.5; platelet count 98 * Coagulation profile showed PT 12.0; INR 1.1; PTT 29.3 * Electrolytes showed sodium 128; potassium 4.9; chloride 93; CO2 24.7; anion gap 10; BUN 26; creatinine 1.32; GFR 54; glucose 396; lactic acid 3.6; calcium 8.8; magnesium 2.0 * Liver function test showed total bilirubin 0.7; AST 54; ALT 35; alkaline phosphatase 154; total protein 6.8; albumin 2.6 * Cardiac serology showed total CK 126; CK-MB 7.6; troponin 1.4; B-type natriuretic peptide 551 * EKG showed mild ST elevation in V2 without reciprocal changes or T-wave inversions. * Chest x-ray showed interstitial and bibasilar patchy alveolar opacities possibly representing pneumonia. The patient was admitted to the family medicine residency service. There were concerns for pneumonia, sepsis, acute coronary syndrome, pulmonary embolus, COPD exacerbation. The patient was given fluid, nebulizer treatments, IV steroids, and started on empiric antibiotic therapy. Cardiology was consulted as was cardiothoracic surgery. Echocardiogram showed moderate to severe aortic stenosis. Cardiology planned for repeat cardiac catheterization. However, on 09/04/16 a Halicat was called when the patient was found to be lethargic with increasing dyspnea and hypoxia. O2 sats were down to approximately 70%. Chest x-ray at that time showed bilateral pulmonary edema significantly worse than on the admission chest x-ray. The patient was transferred to the ICU in critical care medicine was consulted. The patient has been in the intensive care unit since that time. Respiratory status was initially managed with BiPAP. On 09/12/16 the patient required intubation and mechanical ventilation for respiratory distress and hypoxemia. Sedation was started with fentanyl and propofol. CT of the chest was negative for pulmonary embolus. Pulmonary edema was addressed with the Bumex drip. Sputum came back growing strep pneumonia. In spite of aggressive care, the patient has failed to show significant improvement. Even off sedation he is minimally responsive at this point. In spite of long-standing antibiotic therapy and repeat negative cultures, he continues to spike temperatures. Urine output has been poor but was recently helped with some aggressive diuresis. Creatinine has been stable now at approximately 1.5 with GFR hovering around 46. Nutritional status shows the patient with an albumin of 2.0 in spite of ongoing tube feedings. At time of my visit, the patient did not track me, was unable to follow commands , and had minimal withdrawal to noxious stimulus. He had been off fentanyl and propofol for over 2 hours. . Function/Cognitive Trajectory The patient was able to take care of his activities of daily living prior to this hospitalization, family reports that he has been sedentary since his knee surgery in 2012. He would go bed to chair; chair to bathroom; chair to car; etc. he would spend most of the day watching television. He liked to eat. He has never been on home oxygen and has never used metered-dose inhalers or nebulizer treatments. He had very low exercise tolerance. Family reports that just taking a shower while sitting on a shower chair would exhaust him. Family also reported that he had "little drive to do anything." They also report he is a "bad patient," and is mostly in denial about his own medical problems. Family reports a high degree of both anxiety and depression due to his PTSD. These both remained problematic in spite of being on medications for them. Mr. Gudino walked without any type of assistive device but was reportedly quite unsteady on his feet. Family reports he had little feeling in his lower extremities due to his peripheral neuropathy. He had pain in most of his joints but particularly his hands and his feet. He rarely ever used opiate analgesics for this pain. . Review of Systems ROS Limitations: Clinical Condition (patient is minimally responsive, intubated , mechanically ventilated. Review of systems is provided through the medical record and available family members.) Constitutional: COMPLAINS OF: Diaphoretic episodes, Fatigue, Fever, Change in appetite, Pain, Generalized weakness, DENIES: Weight gain, Weight loss, Night Sweats Endocrine: COMPLAINS OF: Heat/cold intolerance Eyes: COMPLAINS OF: Vision loss (refuses to wear glasses), DENIES: Double Vision Ears, nose, mouth, throat: COMPLAINS OF: Hearing loss (has hearing aids but refuses to wear them), DENIES: Throat pain, Epistaxis Respiratory: COMPLAINS OF: Cough, Snoring Cardiovascular: COMPLAINS OF: Chest pain, Dyspnea on Exertion, DENIES: Palpitations, Syncope, Lower Extremity Edema Gastrointestinal: COMPLAINS OF: Diarrhea, Dyspepsia or heartburn, DENIES: Black stools, Bloody stools, Constipation, Nausea, Vomiting Genitourinary: COMPLAINS OF: Nocturia, Hesitancy, Dribbling, Decreased stream, DENIES: Urinary incontinence, Dysuria Musculoskeletal: COMPLAINS OF: Joint pain, Muscle aches, Back pain, Decreased range of motion Integumentary: DENIES: Tumors Neurologic: COMPLAINS OF: Abnormal gait, Paresthesias, Poor Balance, DENIES: Headache, Seizures Psychiatric: COMPLAINS OF: Anxiety, Depression, Agitation Other ROS: * Upper and lower dentures Past Family Social History Coded Allergies: Niacin (Unverified Allergy, Severe, GENERALIZED BURNING AND ITCHING, ) Past Medical History * Aortic stenosis * Diabetes mellitus * COPD * Hypothyroidism * Peptic ulcer disease * BPH * Osteoarthritis * Peripheral neuropathy * Long-standing thrombocytopenia. Evaluated by Dr. 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 * PTSD * Anxiety * Depression * [place] with positive Agent [place] exposure . Past Surgical History * Right knee staged planned removal of antibiotic spacer with revision total knee arthroplasty 2012 * Right knee arthroplasty 2011 * Arthroscopy followed by you know condylar arthroplasty of the left knee * Lumbar bone chip excision . Reported Medications Prehospital medications included the following: Trazodone (Trazodone HCl) 100 Mg Tab 100 Mg PO HS Sertraline (Sertraline HCl) 100 Mg Tab 100 Mg PO DAILY Primidone 50 Mg Tab 100 Mg PO TID Lyrica (Pregabalin) 150 Mg Cap 150 Mg PO BID Pravastatin 40 Mg Tab 40 Mg PO DAILY Omeprazole 20 Mg Cap Metformin ER (Metformin HCl) 500 Mg Jose Alfredo 500 Mg PO DAILY With evening meal Meloxicam 15 Mg Tab 15 Mg PO DAILY Losartan (Losartan Potassium) 50 Mg Tab 50 Mg PO DAILY Levothyroxine (Levothyroxine Sodium) 50 Mcg Tab 50 Mcg PO DAILY Novolog Inj (Insulin Aspart) 1,000 Unit/10 Ml Vial 5-25 Units SQ ACHS Max dose at bedtime:( )units; sugars less than 70,(0) units; sugars 150-199,(5) units; sugars 200-249,(10) units; sugars 250-299,(15) units; sugars 300-349,(20)units; sugars greater than 349,(25)units Novolin N Inj (Insulin Human NPH) 1,000 Unit/10 Ml Vial 0 SQ DIRECTED Sliding Scale As Directed. Glucose (Dextrose) 4 Gm Chew 4 Gm CHEW DIRECTED Cholecalciferol (Cholecalciferol (Bulk)) 1 Cry Cry Buspirone (Buspirone HCl) 10 Mg Tab 10 Mg PO BID Aspirin 81 (Aspirin) 81 Mg Tabdr 81 Mg PO DAILY . Current Medications Medications (Trade) Dose Ordered Sig/Dev Route Start Time Stop Time Status Last Admin (NS Flush) 2 ml UNSCH PRN IVF 08/31/16 11:15 09/20/16 20:31 (Zofran Inj) 4 mg Q6H PRN IV 08/31/16 13:45 (Buspar) 10 mg BID PO 08/31/16 21:00 Hold 09/12/16 08:33 (Synthroid) 50 mcg DAILY@06 PO 09/01/16 06:00 09/22/16 06:09 (Lyrica) 150 mg BID PO 08/31/16 21:00 Hold 09/12/16 08:34 (Mysoline) 100 mg TID PO 08/31/16 18:00 09/22/16 09:18 (Desyrel) 100 mg HS PO 08/31/16 21:00 09/21/16 21:33 Miscellaneous Information Patient in critical care unit? Ass... [id number] XX 09/04/16 20:00 09/04/16 20:00 (Morphine Inj) 2 mg Q4H PRN IV 09/05/16 11:30 09/06/16 16:06 (Coreg) 6.25 mg Q12HR PO 09/06/16 09:00 09/22/16 09:19 (Shantelle-Colace) 2 tab DAILY PO 09/06/16 17:45 09/22/16 09:19 (Apresoline Inj) 10 mg Q6H PRN IV 09/09/16 03:15 09/09/16 04:10 (NS Flush) 2 ml UNSCH PRN IVF 09/09/16 10:45 (Aspirin Chew) 81 mg DAILY PO 09/12/16 09:00 09/22/16 09:19 (Apresoline) 50 mg Q8HR PO 09/12/16 08:00 Hold 09/17/16 06:21 Sertraline HCl 50 mg 50 mg DAILY PO 09/13/16 09:00 09/22/16 09:19 Propofol 100 ml @ 0 mls/hr TITRATE IV 09/12/16 12:45 09/22/16 06:18 (fentaNYL DRIP) 250 ml @ 0 mls/hr TITRATE IV 09/12/16 15:00 09/21/16 10:37 (Ferrous Sulfate Liq) 300 mg BID PO 09/12/16 21:00 09/22/16 09:18 (Protonix Inj) 40 mg Q12H IV PUSH 09/13/16 18:00 09/22/16 06:09 (Bumex Inj) 2 mg TID IV PUSH 09/15/16 13:00 Hold 09/21/16 12:25 (Free Water) 300 ml Q4HR G-TUBE 09/20/16 12:00 Hold 09/21/16 12:00 (Levemir Inj) 20 units Q12HR SQ 09/20/16 21:00 09/22/16 09:19 (D50w (Vial) Inj) 25 ml UNSCH PRN IV PUSH 09/20/16 10:45 (NovoLIN R SUPPLEMENTAL SCALE) 1 Q4HR SQ 09/20/16 12:00 09/22/16 09:44 (predniSONE LIQ) 5 mg Taper DAILY PO 09/21/16 09:00 09/23/16 08:59 09/22/16 09:18 (Heparin Inj) 5,000 units Q12HR SQ 09/20/16 21:00 09/20/16 20:45 Pravastatin Sodium 40 mg 40 mg HS PO 09/22/16 21:00 (Bumex Inj) 100 ml @ 8 mls/hr CONTINUOUS IV 09/21/16 14:00 09/22/16 06:10 Magnesium Oxide 800 mg 800 mg UNSCH PRN PO 09/21/16 13:15 Magnesium Sulfate 4 gm/Sodium Chloride 100 ml @ 50 mls/hr UNSCH PRN IV 09/21/16 13:15 Magnesium Sulfate 2 gm/Sodium Chloride 100 ml @ 50 mls/hr UNSCH PRN IV 09/21/16 13:15 Potassium Chloride 100 ml @ 50 mls/hr Q2H PRN IV 09/21/16 13:15 09/22/16 09:17 Potassium Chloride 100 ml @ 50 mls/hr Q2H PRN IV 09/21/16 13:15 Potassium Chloride 100 ml @ 50 mls/hr Q2H PRN IV 09/21/16 13:15 (KCl 40 Meq Premix Inj) 100 ml @ 25 mls/hr UNSCH PRN IV 09/21/16 13:15 (K-Phos) 2,000 mg Q4H PRN PO 09/21/16 13:15 Potassium Phosphate 2000 mg 2,000 mg UNSCH PRN PO/TUBE 09/21/16 13:15 Potassium Phosphate 30 mmol/ Sodium Chloride 260 ml @ 42 mls/hr UNSCH PRN IV 09/21/16 13:15 (Sodium Phosphate Inj/NS 250 ml Inj) 250 ml @ 42 mls/hr UNSCH PRN IV 09/21/16 13:15 . Family History * Patient's father may have of "black lung disease." Mother's cause of is uncertain. * 2 sisters had cancer. * 1 brother of diabetic coma. * Several siblings had heart disease. . Substance Use Tobacco: The patient was at least a 2 pack per day smoker. He essentially smoked from the time he woke up until the time he went to bed during most of his adult life. He stopped around 2008 when he retired. Alcohol: History of some heavy alcohol consumption but quit over 25 years ago. Prescription med abuse: No known abuse Illicits: No known use of illicits. . Psychosocial History Mr. Gudino is originally from [place]. He has been living in [place] for approximately 25 years. The patient is a [place] . He served on a [employer] during the [place] War. He was diagnosed with PTSD. There is a history of agent orange exposure. The patient has an associate degree from college. 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 The patient was twice. He has been with his current since 1997. He has one son who lives locally and a daughter who lives in [place]. There are 4 grandchildren that live in [place]. Patient was the youngest of 12 siblings. . Spiritual/Cultural Factors From a [employer] family, but has been estranged from the religion. Jehovah'S Witness and spirituality have not been an important part of his life. . Living Will: Never completed Health Care Surrogate: Never completed Durable Power of Dispatch Coordinator: Never completed Date completed: Never completed. . Health Care Surrogate(s): No written designation of health care surrogate . . Documented care wishes: No written documentation of health care goals/preferences . Today's verbally stated goals: Unable to verbally state his own goals. . Family/friends goals: Family are currently hoping that patient will regain capacity to make his own decisions. They don't want to give up on him too soon, but they also know he will not be very cooperative with rehabilitation and the tasks necessary to improve and get stronger. They're reluctant to put him through tracheostomy and PEG tube placement if it will just serve to prolong his dying process. . Ethical and Legal Issues Patient is incapacitated to make his own health care decisions. It is unclear if/when he will regain capacity to do so. . Physical Exam Vital Signs Date Time Temp Pulse Resp B/P Pulse Ox O2 Delivery O2 Flow Rate FiO2 09/22/16 08:51 92 50 09/22/16 06:00 79 09/22/16 04:33 93 45 09/22/16 04:00 75 09/22/16 04:00 Mechanical Ventilator 45 09/22/16 04:00 99.5 75 20 113/57 92 09/22/16 04:00 45 09/22/16 02:00 78 09/22/16 01:20 91 45 09/22/16 00:00 78 09/22/16 00:00 45 09/22/16 00:00 100.8 87 20 119/58 91 09/22/16 00:00 Mechanical Ventilator 45 09/21/16 22:34 92 45 09/21/16 22:00 89 09/21/16 20:37 92 45 09/21/16 20:00 Mechanical Ventilator 45 09/21/16 20:00 87 09/21/16 20:00 100.9 81 20 145/67 93 09/21/16 20:00 45 09/21/16 18:00 84 09/21/16 16:41 93 45 09/21/16 16:00 45 09/21/16 16:00 80 09/21/16 16:00 91 Mechanical Ventilator 45 09/21/16 16:00 100.3 80 20 121/56 91 09/21/16 14:00 77 09/21/16 12:57 92 45 09/21/16 12:00 100.4 75 20 102/53 94 09/21/16 12:00 75 09/21/16 12:00 45 09/21/16 12:00 94 Mechanical Ventilator 45 . 09/21/16 09/22/16 19:00 07:00 Intake Total 1182 ml 1412 ml Output Total 775 ml 5250 ml Balance 407 ml -3838 ml IV Total 186 ml 709 ml Tube Feeding 396 ml 703 ml Other 600 ml Output Urine Total 775 ml 5250 ml # Bowel Movements 1 1 . Exam CONSTITUTIONAL/GENERAL: This is an adequately nourished patient, intubated, mechanically ventilated, minimally responsive in an MICU bed. TUBES/LINES/DRAINS: soft writst restraints; ortega catheter; OG tube; ET tube; SCDs; peripheral IV SKIN: No jaundice, rashes, or lesions. Ecchymoses on upper extremities. No wounds seen anteriorly. Skin temperature appropriate. Not diaphoretic. HEAD: Atraumatic. Normocephalic. EYES: Pupils equal and round and reactive. Extraocular motions intact. No scleral icterus. No injection or drainage. Fundi not examined. ENT: Unable to evaluate hearing. Nose without bleeding or purulent drainage. Throat without visible erythema, exudates, masses, or lesions though somewhat difficult to evaluate due to intubations NECK: Trachea midline. Supple, nontender. No palpable thyroid enlargement or nodularity. CARDIOVASCULAR: Regular rate and rhythm without gallops, or rubs. 2+ systolic murmur present. No JVD. Peripheral pulses symmetric. RESPIRATORY/CHEST: Symmetric, unlabored respirations. Clear to auscultation. Breath sounds equal bilaterally. No wheezes, rales, or rhonchi. GASTROINTESTINAL: Abdomen soft, non-tender, slightly distended. No hepato- splenomegaly, or palpable masses. No guarding. Bowel sounds present. GENITOURINARY: Without palpable bladder distension. Ortega catheter in place. MUSCULOSKELETAL: Extremities without clubbing, cyanosis, or edema. No joint effusion noted. No calf tenderness. No mottling or clubbing. LYMPHATICS: No palpable cervical or supraclavicular adenopathy. NEUROLOGICAL: (Patient is examined while off fentanyl and propofol for 2.5 hours ) Eyes were open slightly to loud voice and exam. Does not track. Unable to follow commands. Minimal withdrawal to noxious stimulus. Rare spontaneous movements. PSYCHIATRIC: Unable to evaluate due to level of responsiveness. . Diagnostic Tests Laboratory Laboratory Tests Test 09/20/16 09/21/16 09/21/16 09/21/16 04:35 06:42 14:02 21:01 White Blood Count 5.2 TH/MM3 7.9 TH/MM3 (4.0-11.0) (4.0-11.0) Red Blood Count 2.92 MIL/MM3 2.73 MIL/MM3 (4.50-5.90) (4.50-5.90) Hemoglobin 8.3 GM/DL 7.7 GM/DL (13.0-17.0) (13.0-17.0) Hematocrit 25.8 % 24.0 % (39.0-51.0) (39.0-51.0) Mean Corpuscular Volume 88.3 FL 88.0 FL (80.0-100.0) (80.0-100.0) Mean Corpuscular Hemoglobin 28.5 PG 28.3 PG (27.0-34.0) (27.0-34.0) Mean Corpuscular Hemoglobin 32.3 % 32.2 % Concent (32.0-36.0) (32.0-36.0) Red Cell Distribution Width 17.0 % 16.7 % (11.6-17.2) (11.6-17.2) Platelet Count 68 TH/MM3 84 TH/MM3 (150-450) (150-450) Mean Platelet Volume 11.1 FL 11.5 FL (7.0-11.0) (7.0-11.0) Neutrophils (%) (Auto) 73.8 % % (16.0-70.0) (16.0-70.0) Lymphocytes (%) (Auto) 17.9 % % (9.0-44.0) (9.0-44.0) Monocytes (%) (Auto) 7.4 % (0.0-8.0) % (0.0-8.0) Eosinophils (%) (Auto) 0.4 % (0.0-4.0) % (0.0-4.0) Basophils (%) (Auto) 0.5 % (0.0-2.0) % (0.0-2.0) Neutrophils # (Auto) 3.8 TH/MM3 TH/MM3 (1.8-7.7) (1.8-7.7) Lymphocytes # (Auto) 0.9 TH/MM3 TH/MM3 (1.0-4.8) (1.0-4.8) Monocytes # (Auto) 0.4 TH/MM3 TH/MM3 (0-0.9) (0-0.9) Eosinophils # (Auto) 0.0 TH/MM3 TH/MM3 (0-0.4) (0-0.4) Basophils # (Auto) 0.0 TH/MM3 TH/MM3 (0-0.2) (0-0.2) CBC Comment AUTO DIFF AUTO DIFF Differential Comment AUTO DIFF FINAL DIFF CONFIRMED MANUAL Platelet Estimate LOW (NORMAL) LOW (NORMAL) Platelet Morphology Comment NORMAL ENLARGED (NORMAL) (NORMAL) Prothrombin Time 11.5 SEC 11.2 SEC (9.8-11.6) (9.8-11.6) Prothromb Time International 1.0 RATIO 1.0 RATIO Ratio Activated Partial 26.3 SEC 21.2 SEC Thromboplast Time (24.3-30.1) (24.3-30.1) Fibrinogen 541 mg/dL 571 mg/dL (181-393) (181-393) Sodium Level 147 MEQ/L 140 MEQ/L 139 MEQ/L 138 MEQ/L (136-145) (136-145) (136-145) (136-145) Potassium Level 3.8 MEQ/L 3.6 MEQ/L 3.4 MEQ/L 2.8 MEQ/L (3.5-5.1) (3.5-5.1) (3.5-5.1) (3.5-5.1) Chloride Level 102 MEQ/L 92 MEQ/L 92 MEQ/L 89 MEQ/L (98-107) (98-107) (98-107) (98-107) Carbon Dioxide Level 38.2 MEQ/L 38.8 MEQ/L 37.0 MEQ/L 40.8 MEQ/L (21.0-32.0) (21.0-32.0) (21.0-32.0) (21.0-32.0) Anion Gap 7 MEQ/L (5-15) 9 MEQ/L (5-15) 10 MEQ/L (5-15) 8 MEQ/L (5-15) Blood Urea Nitrogen 82 MG/DL (7-18) 75 MG/DL (7-18) 74 MG/DL (7-18) 71 MG/DL (7- 18) Creatinine 1.57 MG/DL 1.51 MG/DL 1.53 MG/DL 1.55 MG/DL (0.60-1.30) (0.60-1.30) (0.60-1.30) (0.60-1.30) Estimat Glomerular Filtration 44 ML/MIN (>89) 46 ML/MIN (>89) 45 ML/MIN (>89) 45 ML/MIN (>89) Rate Random Glucose 284 MG/DL 175 MG/DL 253 MG/DL 259 MG/DL (74-106) (74-106) (74-106) (74-106) Calcium Level 8.3 MG/DL 8.3 MG/DL 8.1 MG/DL 8.2 MG/DL (8.5-10.1) (8.5-10.1) (8.5-10.1) (8.5-10.1) Differential Total Cells 100 Counted Neutrophils % (Manual) 72 % (16-70) Band Neutrophils % 7 % (0-6) Lymphocytes % 16 % (9-44) Monocytes % 4 % (0-8) Eosinophils % 1 % (0-4) Neutrophils # (Manual) 6.2 TH/MM3 (1.8-7.7) Magnesium Level 2.7 MG/DL 2.6 MG/DL (1.5-2.5) (1.5-2.5) Test 09/22/16 09/22/16 04:02 07:22 White Blood Count 6.1 TH/MM3 (4.0-11.0) Red Blood Count 2.81 MIL/MM3 (4.50-5.90) Hemoglobin 7.9 GM/DL (13.0-17.0) Hematocrit 24.0 % (39.0-51.0) Mean Corpuscular Volume 85.3 FL (80.0-100.0) Mean Corpuscular Hemoglobin 28.1 PG (27.0-34.0) Mean Corpuscular Hemoglobin 32.9 % Concent (32.0-36.0) Red Cell Distribution Width 16.5 % (11.6-17.2) Platelet Count 88 TH/MM3 (150-450) Mean Platelet Volume 10.5 FL (7.0-11.0) Sodium Level 142 MEQ/L 140 MEQ/L (136-145) (136-145) Potassium Level 3.1 MEQ/L 3.1 MEQ/L (3.5-5.1) (3.5-5.1) Chloride Level 92 MEQ/L 92 MEQ/L (98-107) (98-107) Carbon Dioxide Level 38.6 MEQ/L 40.0 MEQ/L (21.0-32.0) (21.0-32.0) Anion Gap 11 MEQ/L (5-15) 8 MEQ/L (5-15) Blood Urea Nitrogen 67 MG/DL (7-18) 69 MG/DL (7-18) Creatinine 1.51 MG/DL 1.50 MG/DL (0.60-1.30) (0.60-1.30) Estimat Glomerular Filtration 46 ML/MIN (>89) 46 ML/MIN (>89) Rate Random Glucose 223 MG/DL 229 MG/DL (74-106) (74-106) Calcium Level 8.5 MG/DL 8.3 MG/DL (8.5-10.1) (8.5-10.1) Magnesium Level 2.6 MG/DL 2.6 MG/DL (1.5-2.5) (1.5-2.5) . Result Diagram: 09/22/16 0402 09/22/16 0722 Microbiology Microbiology Date/Time Procedure Status Source Growth 09/21/16 06:30 Stool Occult Blood ([facility]) - Final Complete Stool Stool HEMOCCULT POSITIVE Imaging Last Impressions Chest X-Ray 09/18/16 0000 Signed Impressions: Service Date/Time: Sunday, September 18, 2016 02:48 - CONCLUSION: Persistent diffuse bilateral infiltrates. Nathan Todd MD Lower Extremity Ultrasound 09/11/16 Signed Impressions: Service Date/Time: Sunday, September 11, 2016 12:30 - CONCLUSION: No DVT is identified within either lower extremity. Frank Young MD CT Angiography 09/10/16 Signed Impressions: Service Date/Time: Sunday, September 11, 2016 01:05 - CONCLUSION: No evidence of pulmonary embolism. Frank Hardin MD Abdomen Ultrasound 09/07/16 Signed Impressions: Service Date/Time: Wednesday, September 07, 2016 16:45 - CONCLUSION: Heterogeneous hepatic echotexture consistent with chronic liver disease. Splenomegaly Mild to moderate ascites Mildly thickened gallbladder wall without evidence of gallstones. No evidence of hydronephrosis. Isidro Oliver MD Upper Extremity Ultrasound 09/06/16 0000 Signed Impressions: Service Date/Time: Tuesday, September 06, 2016 20:43 - CONCLUSION: No evidence of DVT. Isidro Oliver MD Chest CT 09/05/16 Signed Impressions: Service Date/Time: Monday, September 05, 2016 15:37 - CONCLUSION: 1. Cardiomegaly with diffuse ground glass densities and consolidation likely pulmonary edema and/or pneumonia. 2. Small bilateral pleural effusions. 3. Prominent lymphadenopathy in the mediastinum. Cameron Archer MD . Procedures * Intubation/mechanical ventilation . Patient/Family Conference Present at Family Conference: Spouse; son; [id number] . Family Conference Time (mins): 55 Family Conference Location: Consult Room Issues Discussed: * Palliative care role, purpose, approach * Additional medical, psychosocial, and spiritual history * Patients general health, functional status, and cognitive changes in the months leading up to the current hospitalization * Family understanding of the current medical problems * Family understanding of prognosis * Patients goals of care as best understood conversations and/or values * Current medical treatment options and benefits/burdens of those options * Likely scenarios comparing ongoing aggressive care with a transition to comfort measures only * Questions answered to the best of my ability * Palliative care contact information provided . Assessment and Plan Disease Oriented Problem List: (1) Aortic stenosis (2) COPD exacerbation (3) Pneumonia (4) ARDS (adult respiratory distress syndrome) (5) Thrombocytopenia (6) Congestive heart failure (CHF) (7) PHILIPPE (acute kidney injury) (8) Diabetes (9) Hypertension (10) BPH (benign prostatic hyperplasia) (11) Hypothyroidism (12) PTSD (post-traumatic stress disorder) Symptom Scale: (1) Pain 0-10 Scale: Unable to quantify Comment: Patient has long-standing pain syndromes. He has peripheral neuropathy involving both lower extremities. He also has osteoarthritis involving most joints but particularly bothersome in the hands and feet. Normally, he would not use opiate analgesics for these pains. Additional causes of pain here in the hospital might include orotracheal tube; orogastric tube; Ortega catheter; prolonged bedbound status; soft wrist restraints. Pain is mostly been controlled with a fentanyl drip. . (2) Dyspnea 0-10 Scale: Unable to quantify Comment: Patient has long-standing dyspnea on exertion. However, he has never been on home oxygen and has never used metered dose inhalers or nebulizers. Currently, dyspnea is being managed via the ventilator. . (3) Encephalopathy 0-10 Scale: Unable to quantify Comment: Patient was not wakeful, tracking, able to follow commands in spite of being off sedating medications for over 2 hours. . (4) Anxiety 0-10 Scale: Unable to quantify Comment: Attributed to the patient's PTSD. Per family, not adequately managed in spite of multiple psychoactive medications. . (5) Depression 0-10 Scale: Unable to quantify Comment: Attributed to the patient's PTSD. Per family, not adequately managed in spite of multiple psychoactive medications. . Pertinent Non-Medical Issues Psychosocial: Well supported by and his son and [id number] who live locally. Daughter in [place] Spiritual: L[employer]. Legal: No advance directives. Spouse is legal proxy. Ethical issues impacting care: Currently incapacitated to make his own health care decisions. . Important Contacts * Criss Muse (spouse) [phone] . Prognosis The patient has underlying aortic stenosis, diabetes, and COPD. Though he was taking care of most of his ADLs, he was quite sedentary prior to this hospitalization. It is unclear if worsening aortic stenosis versus COPD exacerbation might of triggered this hospitalization. Regardless, patient is now intubated, mechanically ventilated, and in the medical intensive care unit. In spite of 10 days on mechanical ventilation he has not shown signs of significant improvement. He continues to spike fevers. He has an acute kidney injury. He remains quite encephalopathic. On top of this, family paints a picture of a gentleman who is unlikely to participate in rehabilitation or follow physician's orders which significantly diminishes his chances of returning to a home setting should he survive the hospitalization. Under the circumstances will be reasonable if family opted not to go forward with tracheostomy and PEG tube placement if the critical care team is unable to wean him from the ventilator in the next few days. . Code Status: Alternative Code Plan == Code Status: ALTERNATE CODE -- No shock or chest compressions. == Decision making: Patient is currently incapacitated to make his own health care decisions. It is uncertain if/when he will regain capacity. is health care proxy. == Goals of medical treatment: Family have opted for alternate code as noted above. They are still unsure about trach/PEG if patient is unable to wean from the vent. The patient has been very sedentary and not very cooperative as a patient. They do not think he would do well with the rehab, diet compliance, etc necessary for a meaningful recovery. They are hoping he will wake up and be able to make his own decisions before trach becomes absolutely necessary. If he shows some improvement over the next days they will probably want to go forward with aggressive care. If there is no improvement or there is another significant setback, they are likely to request a transition to "comfort measures only." == Pain: Patient has been controlled well with a fentanyl drip. No further recommendations at this time. == Dyspnea: Dyspnea currently being managed with ventilator settings. == Anxiety: Patient has long-standing severe anxiety attributed to PTSD from his [place] days. This may complicate vent weaning. At this point we are trying to get him to wake up. The fear is that once he wakes up but before we are able to wean him from the vent, he will become highly anxious and agitated. We may ultimately need to add a neuroleptic to his antidepressant and may even need to consider Precedex in such a case. == Depression: This is also probably related to his PTSD. He had been on sertraline and trazodone at home prior to admission. == I have spoken with Dr. Marie. Dr. Marie believes it makes sense to continue the current plan of care through the weekend. If the patient does not show signs that he will tolerate weaning at that point, Dr. Marie will likely recommend tracheostomy if family feels the patient would want ongoing aggressive care. If the patient does not wake up, he will also consider CT of the brain. == Palliative care will continue to follow to assist with symptom management and to further clarify goals of medical treatment as the clinical course evolves. . Time Spent Total Floor Time (mins): 90 (Total floor time included chart review; patient exam; conversations with Dr. Samina Henderson and Dr. Marie; the above-referenced family conference; and documentation time.) Face to Face Time (mins): 10 >50% Counseling/Coord of Care: Yes Thank you for the opportunity to participate in the care of Mr. Gudino. . Attestation To help prompt me to consider important information that might be impacting today's encounter and assessment, information from prior notes written by myself or my colleagues may have been "brought forward" into today's note. My signature on this note, however, is an attestation that I personally performed the exam, history, and/or decision-making noted today, and, unless otherwise indicated, the interactions with patient, family, and staff as well as the review of records all occurred today. I also attest that the listed assessment and stated plan reflect my best clinical judgment today based on the combination of historical information, prior notes, and today's exam/ interactions. When time spent is documented, it refers only to time spent today by the signer, or if indicated, combined time spent today by collaborating physician/nurse practitioner. . Deon Hernandez MD Sep 22, 2016 11:03
[2016-09-22] MEDS: HEPARIN SODIUM - SQ 10,000 UNITS/ML VIAL SQ SCH ×2 (12:11→20:43)
[2016-09-22] MEDS: LEVOFLOXACIN 500 MG PREMIX INJ 100 ML IV SCH (12:23)
--- NOTE | 2016-09-22 12:55 | HHI.IDPN ---
Subjective Subjective Remarks Mr. Gudino is a 71-year-old male with PMHx significant for COPD, aortic stenosis, hypertension and diabetes who presented to the emergency department with progressive shortness of breath and nonproductive cough for last 5 days. Notes reviewed. Delayed entry patient seen at ~ 11 am Diagnosed with resistant Strep pneumo pneumonia. Also pulm edema from severe aortic stenosis. Overnight temps 100.8 several times. Secretions yellowish tinge, frothy at times. BP ok WBC ok. No rash Creatinine up Not responsive earlier today. Now on sedation vacation to see if any neuro changes. reema Barraza about encephalopathy workup and he will clinically reassess off sedation to decide. Lines Line sites with no e/o infection Past Medical History reviewed Allergies: Coded Allergies: Niacin (Unverified Allergy, Severe, GENERALIZED BURNING AND ITCHING, ) Objective . Vital Signs Date Time Temp Pulse Resp B/P Pulse Ox O2 Delivery O2 Flow Rate FiO2 09/22/16 11:54 94 50 09/22/16 11:02 50 09/22/16 08:51 92 50 09/22/16 08:00 50 09/22/16 08:00 99.8 74 20 115/55 98 09/22/16 06:00 79 09/22/16 04:33 93 45 09/22/16 04:00 75 09/22/16 04:00 Mechanical Ventilator 45 09/22/16 04:00 99.5 75 20 113/57 92 09/22/16 04:00 45 09/22/16 02:00 78 09/22/16 01:20 91 45 09/22/16 00:00 78 09/22/16 00:00 45 09/22/16 00:00 100.8 87 20 119/58 91 09/22/16 00:00 Mechanical Ventilator 45 09/21/16 22:34 92 45 09/21/16 22:00 89 09/21/16 20:37 92 45 09/21/16 20:00 Mechanical Ventilator 45 09/21/16 20:00 87 09/21/16 20:00 100.9 81 20 145/67 93 09/21/16 20:00 45 09/21/16 18:00 84 09/21/16 16:41 93 45 09/21/16 16:00 45 09/21/16 16:00 80 09/21/16 16:00 91 Mechanical Ventilator 45 09/21/16 16:00 100.3 80 20 121/56 91 09/21/16 14:00 77 09/21/16 12:57 92 45 09/21/16 09/21/16 09/22/16 15:00 23:00 07:00 Intake Total 1182 ml 483 ml 929 ml Output Total 775 ml 3800 ml 1450 ml Balance 407 ml -3317 ml -521 ml IV Total 186 ml 136 ml 573 ml Tube Feeding 396 ml 347 ml 356 ml Other 600 ml Output Urine Total 775 ml 3800 ml 1450 ml # Bowel Movements 1 0 1 . Laboratory Tests Test 09/21/16 09/22/16 06:42 04:02 White Blood Count 7.9 TH/MM3 6.1 TH/MM3 Red Blood Count 2.73 MIL/MM3 2.81 MIL/MM3 Hemoglobin 7.7 GM/DL 7.9 GM/DL Hematocrit 24.0 % 24.0 % Mean Corpuscular Volume 88.0 FL 85.3 FL Mean Corpuscular Hemoglobin 28.3 PG 28.1 PG Mean Corpuscular Hemoglobin 32.2 % 32.9 % Concent Red Cell Distribution Width 16.7 % 16.5 % Platelet Count 84 TH/MM3 88 TH/MM3 Mean Platelet Volume 11.5 FL 10.5 FL Neutrophils (%) (Auto) % Lymphocytes (%) (Auto) % Monocytes (%) (Auto) % Eosinophils (%) (Auto) % Basophils (%) (Auto) % Neutrophils # (Auto) TH/MM3 Lymphocytes # (Auto) TH/MM3 Monocytes # (Auto) TH/MM3 Eosinophils # (Auto) TH/MM3 Basophils # (Auto) TH/MM3 CBC Comment AUTO DIFF Differential Total Cells 100 Counted Neutrophils % (Manual) 72 % Band Neutrophils % 7 % Lymphocytes % 16 % Monocytes % 4 % Eosinophils % 1 % Neutrophils # (Manual) 6.2 TH/MM3 Differential Comment FINAL DIFF MANUAL Platelet Estimate LOW Platelet Morphology Comment ENLARGED Laboratory Tests Test 09/21/16 09/21/16 09/21/16 09/22/16 06:42 14:02 21:01 04:02 Sodium Level 140 MEQ/L 139 MEQ/L 138 MEQ/L 142 MEQ/L Potassium Level 3.6 MEQ/L 3.4 MEQ/L 2.8 MEQ/L 3.1 MEQ/L Chloride Level 92 MEQ/L 92 MEQ/L 89 MEQ/L 92 MEQ/L Carbon Dioxide Level 38.8 MEQ/L 37.0 MEQ/L 40.8 MEQ/L 38.6 MEQ/L Anion Gap 9 MEQ/L 10 MEQ/L 8 MEQ/L 11 MEQ/L Blood Urea Nitrogen 75 MG/DL 74 MG/DL 71 MG/DL 67 MG/DL Creatinine 1.51 MG/DL 1.53 MG/DL 1.55 MG/DL 1.51 MG/DL Estimat Glomerular Filtration 46 ML/MIN 45 ML/MIN 45 ML/MIN 46 ML/MIN Rate Random Glucose 175 MG/DL 253 MG/DL 259 MG/DL 223 MG/DL Calcium Level 8.3 MG/DL 8.1 MG/DL 8.2 MG/DL 8.5 MG/DL Magnesium Level 2.7 MG/DL 2.6 MG/DL 2.6 MG/DL Test 09/22/16 07:22 Sodium Level 140 MEQ/L Potassium Level 3.1 MEQ/L Chloride Level 92 MEQ/L Carbon Dioxide Level 40.0 MEQ/L Anion Gap 8 MEQ/L Blood Urea Nitrogen 69 MG/DL Creatinine 1.50 MG/DL Estimat Glomerular Filtration 46 ML/MIN Rate Random Glucose 229 MG/DL Calcium Level 8.3 MG/DL Magnesium Level 2.6 MG/DL Microbiology Date/Time Procedure Status Source Growth 09/21/16 06:30 Stool Occult Blood ([facility]) - Final Complete Stool Stool HEMOCCULT POSITIVE 09/22/16 12:30 Aerobic Blood Culture Received Blood Peripheral Pending 09/22/16 12:30 Anaerobic Blood Culture Received Blood Peripheral Pending 09/22/16 12:35 Aerobic Blood Culture Received Blood Peripheral Pending 09/22/16 12:35 Anaerobic Blood Culture Received Blood Peripheral Pending Imaging Last Impressions Chest X-Ray 09/12/16 0000 Signed Impressions: Service Date/Time: Monday, September 12, 2016 13:02 - CONCLUSION: 1. Endotracheal tube is now present. The brynn is not well-visualized but tube tip is estimated to be approximately 2 cm from the brynn. 2. Severe bilateral air space consolidation increased from the earlier exam. Frank Young MD Lower Extremity Ultrasound 09/11/16 0000 Signed Impressions: Service Date/Time: Sunday, September 11, 2016 12:30 - CONCLUSION: No DVT is identified within either lower extremity. Frank Young MD CT Angiography 09/10/16 0000 Signed Impressions: Service Date/Time: Sunday, September 11, 2016 01:05 - CONCLUSION: No evidence of pulmonary embolism. Frank Hardin MD Abdomen Ultrasound 09/07/16 0000 Signed Impressions: Service Date/Time: Wednesday, September 07, 2016 16:45 - CONCLUSION: Heterogeneous hepatic echotexture consistent with chronic liver disease. Splenomegaly Mild to moderate ascites Mildly thickened gallbladder wall without evidence of gallstones. No evidence of hydronephrosis. Isidro Oliver MD Upper Extremity Ultrasound 09/06/16 0000 Signed Impressions: Service Date/Time: Tuesday, September 06, 2016 20:43 - CONCLUSION: No evidence of DVT. Isidro Olivre MD Chest CT 09/05/16 0000 Signed Impressions: Service Date/Time: Monday, September 05, 2016 15:37 - CONCLUSION: 1. Cardiomegaly with diffuse ground glass densities and consolidation likely pulmonary edema and/or pneumonia. 2. Small bilateral pleural effusions. 3. Prominent lymphadenopathy in the mediastinum. Cameron Archer MD Physical Exam GENERAL: Sedated on the vent, looks comfortable. SKIN: Cool and dry. NO rash HEAD: Atraumatic. Normocephalic. No temporal or scalp tenderness. EYES: Pupils equal round and reactive. No scleral icterus. No injection or drainage. ENT: Nose without bleeding, or purulent drainage. He is orally intubated NECK: Trachea midline. Supple, nontender, no meningeal signs. CARDIOVASCULAR: Has systolic murmur at base of heart, heard also L precordium , lateral L chest. NO rub RESPIRATORY: Coarse bilateral breath sounds. Decreased air entry bilaterally. GASTROINTESTINAL: Abdomen soft, not distended, no reaction to deep palpation. Bowel sounds (+) MUSCULOSKELETAL: Extremities without clubbing, cyanosis,Has mild edema. Feet warm and well perfused NEURO: Moves fingers, mouths at tube, no spont eye opening, tracking noted. PSYCH: Unable to assess LINE: No evidence of infection : [place] in place, urine looks clear Assessment & Plan Remarks IMPRESSION Possible new Sepsis Pneumococcal PNA, resistant strain - S to teflaro Acute resp failure on vent - possibly due to pulmonary edema, has known severe , BNP elevated - concern for new PNA but he has no fever. WBC normal, not a lot of secretions. New fevers and ARDS physiology. Acute renal failure: sepsis, prerenal Acute transaminitis: sepsis Acute COPD exacerbation Severe Aortic Stenosis with Pulm edema RECS: Blood cultures x 2 Sputum cultures Start Teflaro IV Start Levaquin IV Check Procalcitonin to trend given pulm edema as additional component. 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 Spoke with family, (palliative care) appreciate assistance. Saba Henderson MD Sep 22, 2016 12:55
[2016-09-22 14:36] LABS: BICARBONATE 38.6 MEQ/L (21.0-32.0); MAGNESIUM 2.5 MG/DL (1.5-2.5); POTASSIUM 3.5 MEQ/L (3.5-5.1)
[2016-09-22] MEDS: CEFTAROLINE INJ 600 MG in SODIUM CHLORIDE 0.9% INJ 100 ML IV SCH (17:01)
[2016-09-22] MEDS: RESP: ALBUTEROL 2.5 MG/3 ML NEB (PRN) NEB (18:13)
[2016-09-22 19:33] LABS: BICARBONATE 37.5 MEQ/L (21.0-32.0); MAGNESIUM 2.5 MG/DL (1.5-2.5); POTASSIUM 3.4 MEQ/L (3.5-5.1)
[2016-09-22] MEDS: PRAVASTATIN SOD 40 MG TAB PO SCH (20:42)
[2016-09-22] MEDS: traZODone HCL 100 MG TAB PO SCH (20:42)
--- NOTE | 2016-09-22 21:19 | HHI.PR ---
Subjective Remarks 71 YOWM with Resp insuf, COPD,Lung infilt No fever Pt intubated On AC 16,Fi02 45% Sedated tolerates vent Off sedation Tolerated CPAP 4 hrs Objective Vital Signs Vital Signs Date Time Temp Pulse Resp B/P Pulse Ox O2 Delivery O2 Flow Rate FiO2 09/22/16 18:14 94 50 09/22/16 16:00 102.4 92 24 145/63 92 09/22/16 16:00 50 09/22/16 12:00 100.1 83 20 139/65 94 09/22/16 12:00 50 09/22/16 11:54 94 50 09/22/16 11:02 50 09/22/16 08:51 92 50 09/22/16 08:00 50 09/22/16 08:00 99.8 74 20 115/55 98 09/22/16 06:00 79 09/22/16 04:33 93 45 09/22/16 04:00 75 09/22/16 04:00 Mechanical Ventilator 45 09/22/16 04:00 99.5 75 20 113/57 92 09/22/16 04:00 45 09/22/16 02:00 78 09/22/16 01:20 91 45 09/22/16 00:00 78 09/22/16 00:00 45 09/22/16 00:00 100.8 87 20 119/58 91 09/22/16 00:00 Mechanical Ventilator 45 09/21/16 22:34 92 45 09/21/16 22:00 89 I/O 09/21/16 09/21/16 09/21/16 09/22/16 09/22/16 09/22/16 07:00 15:00 23:00 07:00 15:00 23:00 Intake Total 970 ml 1182 ml 483 ml 929 ml 1161 ml Output Total 400 ml 775 ml 3800 ml 1450 ml 2750 ml Balance 570 ml 407 ml -3317 ml -521 ml -1589 ml IV Total 133 ml 186 ml 136 ml 573 ml 438 ml Tube Feeding 237 ml 396 ml 347 ml 356 ml 693 ml Other 600 ml 600 ml 30 ml Output Urine Total 400 ml 775 ml 3800 ml 1450 ml 2750 ml # Bowel Movements 1 1 0 1 1 Result Diagram: 09/22/16 0402 3/15/17 1851 Objective Remarks GENERAL: Obese WM, mild sob SKIN: Warm and dry. HEAD: Normocephalic. EYES: No scleral icterus. No injection or drainage. NECK: Supple, trachea midline. No JVD or lymphadenopathy. CARDIOVASCULAR: Regular rate and rhythm without murmurs, gallops, or rubs. RESPIRATORY: Breath sounds equal bilaterally. No accessory muscle use. GASTROINTESTINAL: Abdomen soft, non-tender, nondistended. MUSCULOSKELETAL: No cyanosis, or edema. BACK: Nontender without obvious deformity. No CVA tenderness. A/P Assessment and Plan Resp Failure, on Vent COPD Lung infilt DM Ch. Pain PLAN: Cont Abx Vent Support, AC16, Fi02 45% Aerosol nebs Monitor BS Monitor renal functions CPAP trial in AM Palliative care following Kai Escobedo MD Sep 22, 2016 21:19
[2016-09-22] MEDS: ACETAMINOPHEN 325 MG TAB PO PRN (23:08)
[2016-09-23] VITALS (20 sets, daily range): BP systolic 100–172; BP diastolic 54–73; PULSE 82–121; RESP 14–24; TEMP 99.6–103.8; O2SAT 93–98
[2016-09-23] MEDS: CEFTAROLINE INJ 600 MG in SODIUM CHLORIDE 0.9% INJ 100 ML IV SCH ×2 (01:06→13:00)
[2016-09-23] MEDS: INSULIN NovoLIN REGULAR SUPPLEMENTAL SCALE SQ SCH ×4 (01:06→12:00)
[2016-09-23 01:28] LABS: BICARBONATE 36.3 MEQ/L (21.0-32.0); MAGNESIUM 2.5 MG/DL (1.5-2.5); POTASSIUM 3.3 MEQ/L (3.5-5.1)
[2016-09-23] MEDS: fentaNYL DRIP 250 ML IV SCH (02:04)
[2016-09-23] MEDS: BUMETANIDE INJ 100 ML IV SCH (02:51)
[2016-09-23] MEDS: POTASSIUM CHLOR 20 MEQ PREMIX 100 ML IV PRN ×3 (03:28→20:16)
[2016-09-23] MEDS: LEVOTHYROXINE SODIUM 50 MCG TAB PO SCH (05:08)
[2016-09-23] MEDS: PANTOPRAZOLE SODIUM 40 MG VIAL IV PUSH SCH ×2 (05:08→18:00)
[2016-09-23 05:33] LABS: AUTOMATED NEUTROPHIL # 6.1 TH/MM3 (1.8-7.7); BASOPHIL % 0.3 % (0.0-2.0); EOSINOPHIL % 0.6 % (0.0-4.0); HEMATOCRIT 29.2 % (39.0-51.0); HEMO FLAGS DIFF FINAL; LYMPH % 10.9 % (9.0-44.0); LYMPHOCYTE # 0.8 TH/MM3 (1.0-4.8); MEAN CELL VOLUME 84.6 FL (80.0-100.0); MEAN CORPUSCULAR HEMOGLOBIN 27.5 PG (27.0-34.0); MEAN CORPUSCULAR HGB CONC 32.5 % (32.0-36.0); MONO % 9.7 % (0.0-8.0); NEUT % 78.5 % (16.0-70.0); PLATELET COUNT 124 TH/MM3 (150-450); RED BLOOD COUNT 3.45 MIL/MM3 (4.50-5.90); RED CELL DISTRIBUTION WIDTH 16.7 % (11.6-17.2); WHITE BLOOD COUNT 7.7 TH/MM3 (4.0-11.0)
--- NOTE | 2016-09-23 05:41 | RADRPT ---
EXAM DATE/TIME: 09/23/2016 03:17 [facility] COMPARISON: CHEST SINGLE AP, September 22, 2016, 7:48. INDICATIONS : Shortness of breath, possible pulmonary disease. MEDICAL HISTORY : Hypertension. Chronic obstructive pulmonary disease. Cardiovascular disease. SURGICAL HISTORY : None. ENCOUNTER: Subsequent ACUITY: 2 weeks PAIN SCORE: Non-responsive. LOCATION: Bilateral chest FINDINGS: Single AP view of the chest. Endotracheal tube and nasogastric tube remain in place. Slight decrease in bilateral diffuse pulmonary opacity. Cardiomediastinal silhouette unchanged. No evidence of pleura l effusion or pneumothorax. CONCLUSION: Decreasing bilateral pulmonary parenchymal opacity likely representing decreasing pulmonary edema. Jasson Cobos MD on September 23, 2016 at 5:38 Board Certified Radiologist. This report was verified electronically.
[2016-09-23 06:19] LABS: BICARBONATE 38.4 MEQ/L (21.0-32.0); MAGNESIUM 2.6 MG/DL (1.5-2.5); POTASSIUM 2.9 MEQ/L (3.5-5.1)
--- NOTE | 2016-09-23 08:15 | HHI.NPPN ---
Subjective Complaints: Confused, Shortness of Breath General Problems: Edema Renal Failure: Chronic, Acute Interval History Excellent diuresis. FiO2 remains at 50 %. Had fever, seen by ID again, started on Teflaro, Levaquin. He is also on Diflucan. Review of Systems General General Remarks unable to evaluate Objective Data Data 09/22/16 09/23/16 19:00 07:00 Intake Total 1161 ml 1354 ml Output Total 2750 ml 4200 ml Balance -1589 ml -2846 ml IV Total 438 ml 638 ml Tube Feeding 693 ml 596 ml Tube Irrigant 120 ml Other 30 ml Output Urine Total 2750 ml 4200 ml # Bowel Movements 1 1 Vital Signs Date Time Temp Pulse Resp B/P Pulse Ox O2 Delivery O2 Flow Rate FiO2 09/23/16 08:02 100.8 87 20 100/54 09/23/16 06:00 82 09/23/16 04:24 96 50 09/23/16 04:00 83 09/23/16 04:00 50 09/23/16 04:00 99.6 83 21 150/67 97 09/23/16 02:00 82 09/23/16 01:36 97 50 09/23/16 00:00 50 09/23/16 00:00 102.5 89 20 124/58 95 09/23/16 00:00 89 09/22/16 22:20 93 50 09/22/16 22:00 92 09/22/16 20:00 98 09/22/16 20:00 102.9 97 22 153/66 92 09/22/16 20:00 50 09/22/16 19:15 96 50 09/22/16 18:14 94 50 09/22/16 16:00 102.4 92 24 145/63 92 09/22/16 16:00 50 09/22/16 12:00 100.1 83 20 139/65 94 09/22/16 12:00 50 09/22/16 11:54 94 50 09/22/16 11:02 50 09/22/16 08:51 92 50 -: 09/23/16 0418 09/23/16 0418 Microbiology 09/22/16 Gram Stain, Received Pending 09/22/16 Sputum Culture, Received Pending 09/22/16 Aerobic Blood Culture, Received Pending 3/15/17 Anaerobic Blood Culture, Received Pending 09/22/16 Aerobic Blood Culture, Received Pending 09/22/16 Anaerobic Blood Culture, Received Pending Tubes & Lines: [place] Drip Comment fentanyl, propofol (both on hold) Physical Exam General Appearance: Well Developed, Well Nourished, No Acute Distress Throat Throat Exam: Oral Mucosa Delia & Moist Pulmonary Resp Exam: Breath Sounds Equal, Crackles, Decreased Bases Cardiology CV Exam: Regular, Good Perfusion Gastrointestinal/Abdomen GI Exam: Soft, Non-Tender, Bowel Sounds Present Genitourinary Exam: Clear Urine Musculoskeletal MS Exam: Joints Intact, Normal Gait, Normal Tone Integumentary Skin Exam: Clear, Warm, Dry, Intact Extremeties Extremities Exam: Pedal Pulses Palpable, Trace Edema Neurologic Neuro Exam: Awake, Obtunded, Unresponsive Psychiatric Psych Exam: Appropriate Responses Assessment/Plan Discussed Condition With: Spouse, Relative Assessment Summary: PHILIPPE/Acute Renal Failure Problem List: (1) PHILIPPE (acute kidney injury) Plan: PHILIPPE due to renal hypoperfusion, some element of cardiorenal syndrome. He has severe Aortic stenosis, at risk for recurrent CHF, pulmonary edema. He had responded to Bumex drip in the past as well. Chest infiltrates slightly better, but persist. Replace potassium. Repeat Magnesium level and phosphorus level. (2) Congestive heart failure (CHF) Plan: History of NSTEMI, Aortic stenosis. Prognosis is guarded. (3) Diabetes Plan: continue insulin therapy monitor glucose, goal 140-180 mg/dL (4) Hypertension Plan: BP stable, continue antihypertensives (5) Severe sepsis Plan: ID on the case. Febrile yesterday. Now on Levaquin, Teflaro and Diflucan. (6) Aortic stenosis Plan: cardiology signed off until he is extubated plan for heart cath if clinically improved (7) A-fib Plan: rate controlled Problem Qualifiers (1) Congestive heart failure (CHF): (2) Diabetes: (3) Hypertension: Qualified Code: I10 - Essential hypertension (4) Aortic stenosis: Qualified Code: I35.0 - Aortic valve stenosis, unspecified etiology (5) A-fib: Qualified Code: I48.91 - Atrial fibrillation, unspecified type Gentry Roa MD Sep 23, 2016 08:15
[2016-09-23] MEDS: HEPARIN SODIUM - SQ 10,000 UNITS/ML VIAL SQ SCH ×2 (08:44→20:14)
[2016-09-23] MEDS: SERTRALINE HCL 50 MG TAB PO SCH (08:44)
[2016-09-23] MEDS: CARVEDILOL 6.25 MG TAB PO SCH ×2 (08:44→20:14)
[2016-09-23] MEDS: PRIMIDONE 50 MG TAB PO SCH ×3 (08:45→18:00)
[2016-09-23] MEDS: predniSONE 5 MG/5 ML CUP PO SCH (08:45)
[2016-09-23] MEDS: ASPIRIN 81 MG CHEW TAB PO SCH (08:45)
[2016-09-23] MEDS: INSULIN DETEMIR 100 UNITS/ML VIAL SQ SCH ×2 (08:46→19:53)
[2016-09-23] MEDS: FERROUS SULFATE 300 MG /5ML UDC PO SCH ×2 (08:47→20:13)
[2016-09-23] MEDS: DOCUSATE SODIUM 50 MG/SENNA 8.6 MG TAB PO SCH (09:00)
[2016-09-23] MEDS ORDERED: FLUCONAZOLE 100 MG PREMIX BAG 50 ML IV SCH (09:00)
[2016-09-23 09:29] LABS: BICARBONATE 38.1 MEQ/L (21.0-32.0); MAGNESIUM 2.6 MG/DL (1.5-2.5); POTASSIUM 3.4 MEQ/L (3.5-5.1)
--- NOTE | 2016-09-23 11:09 | RADRPT ---
EXAM DATE/TIME: 09/23/2016 08:54 [facility] COMPARISON: No previous studies available for comparison. INDICATIONS : Swelling in bilateral upper extremites. MEDICAL HISTORY : Hypercholesterolemia. Hypertension. Chronic obstructive pulmonary disease. GERD. Arthritis. Diabetes. Liver disease. SURGICAL HISTORY : Bilateral knee replacement. ENCOUNTER: Initial ACUITY: 1 day PAIN SCORE: Non-responsive LOCATION: Bilateral arms. FINDINGS: RIGHT UPPER EXTREMITY: There is spontaneous flow documented in the brachial, basilic, cephalic, axillary, and subclavian vei ns. The vessels are compressible and augmentation response is documented. No filling defects are se en. The flow is phasic with respiration. Direction of flow in the jugular vein is caudal. LEFT UPPER EXTREMITY: There is spontaneous flow documented in the brachial, basilic, cephalic, axillary, and subclavian vei ns. The vessels are compressible and augmentation response is documented. No filling defects are se en. The flow is phasic with respiration. Direction of flow in the jugular vein is caudal. CONCLUSION: No DVT. Frank Og MD on September 23, 2016 at 11:06 Board Certified Radiologist. This report was verified electronically.
[2016-09-23 11:25] LABS: BLOOD, URINE MOD (NEG); GLUCOSE,URINE NEG (NEG); HYALINE CAST, URINE 5 /lpf (RARE); KETONE, URINE NEG (NEG); MUCUS URINE FEW /lpf (OCC); NITRITE,URINE NEG (NEG); PH, URINE 6.5 (5.0-8.5); URINE COLOR YELLOW (YELLW/STRAW)
[2016-09-23 11:26] LABS: COMMENT (UR) CULT NOT INDICATED; CULTURE IF INDICATED CULT NOT INDICATED
[2016-09-23] MEDS: LEVOFLOXACIN 500 MG PREMIX INJ 100 ML IV SCH (12:00)
--- NOTE | 2016-09-23 13:04 | HHI.IDPN ---
Subjective Subjective Remarks Mr. Gudino is a 71-year-old male with PMHx significant for COPD, aortic stenosis, hypertension and diabetes who presented to the emergency department with progressive shortness of breath and nonproductive cough for last 5 days. Notes reviewed. Delayed entry patient seen at ~ 10 am Diagnosed with resistant Strep pneumo pneumonia. Also pulm edema from severe aortic stenosis. Overnight fevers 102 F Secretions yellowish tinge, frothy at times. BP ok WBC ok. No rash Creatinine up Not responsive yday on sedation vacation. Moves extremities but no spont eye opening, no tracking or purposeful movements. Ortega changed 09/23/16. New UA sent. Antibiotics Teflaro IV Levaquin oral. Lines Line sites with no e/o infection Past Medical History reviewed Allergies: Coded Allergies: Niacin (Unverified Allergy, Severe, GENERALIZED BURNING AND ITCHING, ) Objective . Vital Signs Date Time Temp Pulse Resp B/P Pulse Ox O2 Delivery O2 Flow Rate FiO2 09/23/16 12:30 95 50 09/23/16 12:00 88 09/23/16 12:00 50 09/23/16 12:00 99.8 96 22 164/72 94 09/23/16 10:15 95 50 09/23/16 10:00 82 09/23/16 08:02 100.8 87 20 100/54 09/23/16 08:00 85 09/23/16 06:00 82 09/23/16 04:24 96 50 09/23/16 04:00 83 09/23/16 04:00 50 09/23/16 04:00 99.6 83 21 150/67 97 09/23/16 02:00 82 09/23/16 01:36 97 50 09/23/16 00:00 50 09/23/16 00:00 102.5 89 20 124/58 95 09/23/16 00:00 89 09/22/16 22:20 93 50 09/22/16 22:00 92 09/22/16 20:00 98 09/22/16 20:00 102.9 97 22 153/66 92 09/22/16 20:00 50 09/22/16 19:15 96 50 09/22/16 18:14 94 50 09/22/16 16:00 102.4 92 24 145/63 92 09/22/16 16:00 50 09/22/16 09/22/16 09/23/16 15:00 23:00 07:00 Intake Total 1161 ml 732 ml 622 ml Output Total 2750 ml 3400 ml 800 ml Balance -1589 ml -2668 ml -178 ml IV Total 438 ml 376 ml 262 ml Tube Feeding 693 ml 296 ml 300 ml Tube Irrigant 60 ml 60 ml Other 30 ml Output Urine Total 2750 ml 3400 ml 800 ml # Bowel Movements 1 0 1 . Laboratory Tests Test 09/22/16 09/23/16 04:02 04:18 White Blood Count 6.1 TH/MM3 7.7 TH/MM3 Red Blood Count 2.81 MIL/MM3 3.45 MIL/MM3 Hemoglobin 7.9 GM/DL 9.5 GM/DL Hematocrit 24.0 % 29.2 % Mean Corpuscular Volume 85.3 FL 84.6 FL Mean Corpuscular Hemoglobin 28.1 PG 27.5 PG Mean Corpuscular Hemoglobin 32.9 % 32.5 % Concent Red Cell Distribution Width 16.5 % 16.7 % Platelet Count 88 TH/MM3 124 TH/MM3 Mean Platelet Volume 10.5 FL 10.3 FL Neutrophils (%) (Auto) 78.5 % Lymphocytes (%) (Auto) 10.9 % Monocytes (%) (Auto) 9.7 % Eosinophils (%) (Auto) 0.6 % Basophils (%) (Auto) 0.3 % Neutrophils # (Auto) 6.1 TH/MM3 Lymphocytes # (Auto) 0.8 TH/MM3 Monocytes # (Auto) 0.7 TH/MM3 Eosinophils # (Auto) 0.0 TH/MM3 Basophils # (Auto) 0.0 TH/MM3 CBC Comment DIFF FINAL Differential Comment Laboratory Tests Test 09/21/16 09/21/16 09/22/16 09/22/16 14:02 21:01 04:02 07:22 Sodium Level 139 MEQ/L 138 MEQ/L 142 MEQ/L 140 MEQ/L Potassium Level 3.4 MEQ/L 2.8 MEQ/L 3.1 MEQ/L 3.1 MEQ/L Chloride Level 92 MEQ/L 89 MEQ/L 92 MEQ/L 92 MEQ/L Carbon Dioxide Level 37.0 MEQ/L 40.8 MEQ/L 38.6 MEQ/L 40.0 MEQ/L Anion Gap 10 MEQ/L 8 MEQ/L 11 MEQ/L 8 MEQ/L Blood Urea Nitrogen 74 MG/DL 71 MG/DL 67 MG/DL 69 MG/DL Creatinine 1.53 MG/DL 1.55 MG/DL 1.51 MG/DL 1.50 MG/DL Estimat Glomerular Filtration 45 ML/MIN 45 ML/MIN 46 ML/MIN 46 ML/MIN Rate Random Glucose 253 MG/DL 259 MG/DL 223 MG/DL 229 MG/DL Calcium Level 8.1 MG/DL 8.2 MG/DL 8.5 MG/DL 8.3 MG/DL Magnesium Level 2.7 MG/DL 2.6 MG/DL 2.6 MG/DL 2.6 MG/DL Test 09/22/16 09/22/16 09/22/16 09/23/16 12:35 14:05 18:51 00:53 Procalcitonin 0.20 ng/mL Sodium Level 141 MEQ/L 140 MEQ/L 141 MEQ/L Potassium Level 3.5 MEQ/L 3.4 MEQ/L 3.3 MEQ/L Chloride Level 94 MEQ/L 92 MEQ/L 94 MEQ/L Carbon Dioxide Level 38.6 MEQ/L 37.5 MEQ/L 36.3 MEQ/L Anion Gap 8 MEQ/L 11 MEQ/L 11 MEQ/L Blood Urea Nitrogen 65 MG/DL 64 MG/DL 65 MG/DL Creatinine 1.48 MG/DL 1.56 MG/DL 1.60 MG/DL Estimat Glomerular Filtration 47 ML/MIN 44 ML/MIN 43 ML/MIN Rate Random Glucose 299 MG/DL 380 MG/DL 400 MG/DL Calcium Level 9.0 MG/DL 9.0 MG/DL 9.0 MG/DL Magnesium Level 2.5 MG/DL 2.5 MG/DL 2.5 MG/DL Test 09/23/16 09/23/16 04:18 08:59 Sodium Level 142 MEQ/L 143 MEQ/L Potassium Level 2.9 MEQ/L 3.4 MEQ/L Chloride Level 93 MEQ/L 96 MEQ/L Carbon Dioxide Level 38.4 MEQ/L 38.1 MEQ/L Anion Gap 11 MEQ/L 9 MEQ/L Blood Urea Nitrogen 66 MG/DL 65 MG/DL Creatinine 1.63 MG/DL 1.63 MG/DL Estimat Glomerular Filtration 42 ML/MIN 42 ML/MIN Rate Random Glucose 403 MG/DL 359 MG/DL Calcium Level 8.9 MG/DL 9.0 MG/DL Magnesium Level 2.6 MG/DL 2.6 MG/DL Microbiology Date/Time Procedure Status Source Growth 09/21/16 06:30 Stool Occult Blood ([facility]) - Final Complete Stool Stool HEMOCCULT POSITIVE 09/22/16 12:20 Gram Stain - Final Resulted Sputum Endotracheal 09/22/16 12:20 Sputum Culture Resulted Sputum Endotracheal Pending 09/22/16 12:30 Aerobic Blood Culture - Preliminary Resulted Blood Peripheral NO GROWTH IN 1 DAY 09/22/16 12:30 Anaerobic Blood Culture - Preliminary Resulted Blood Peripheral NO GROWTH IN 1 DAY 09/22/16 12:35 Aerobic Blood Culture - Preliminary Resulted Blood Peripheral NO GROWTH IN 1 DAY 09/22/16 12:35 Anaerobic Blood Culture - Preliminary Resulted Blood Peripheral NO GROWTH IN 1 DAY Imaging Last Impressions Chest X-Ray 09/12/16 0000 Signed Impressions: Service Date/Time: Monday, September 12, 2016 13:02 - CONCLUSION: 1. Endotracheal tube is now present. The brynn is not well-visualized but tube tip is estimated to be approximately 2 cm from the brynn. 2. Severe bilateral air space consolidation increased from the earlier exam. Frank Young MD Lower Extremity Ultrasound 09/11/16 0000 Signed Impressions: Service Date/Time: Sunday, September 11, 2016 12:30 - CONCLUSION: No DVT is identified within either lower extremity. Frank Young MD CT Angiography 09/10/16 0000 Signed Impressions: Service Date/Time: Sunday, September 11, 2016 01:05 - CONCLUSION: No evidence of pulmonary embolism. Frank Hardin MD Abdomen Ultrasound 09/07/16 0000 Signed Impressions: Service Date/Time: Wednesday, September 07, 2016 16:45 - CONCLUSION: Heterogeneous hepatic echotexture consistent with chronic liver disease. Splenomegaly Mild to moderate ascites Mildly thickened gallbladder wall without evidence of gallstones. No evidence of hydronephrosis. Isidro Oliver MD Upper Extremity Ultrasound 09/06/16 0000 Signed Impressions: Service Date/Time: Tuesday, September 06, 2016 20:43 - CONCLUSION: No evidence of DVT. Isidro Oliver MD Chest CT 09/05/16 0000 Signed Impressions: Service Date/Time: Kin, September 05, 2016 15:37 - CONCLUSION: 1. Cardiomegaly with diffuse ground glass densities and consolidation likely pulmonary edema and/or pneumonia. 2. Small bilateral pleural effusions. 3. Prominent lymphadenopathy in the mediastinum. Cameron Archer MD Physical Exam GENERAL: Sedated on the vent, looks comfortable. SKIN: Cool and dry. NO rash HEAD: Atraumatic. Normocephalic. No temporal or scalp tenderness. EYES: Pupils equal round and reactive. No scleral icterus. No injection or drainage. ENT: Nose without bleeding, or purulent drainage. He is orally intubated NECK: Trachea midline. Supple, nontender, no meningeal signs. CARDIOVASCULAR: Has systolic murmur at base of heart, heard also L precordium , lateral L chest. NO rub RESPIRATORY: Coarse bilateral breath sounds. Decreased air entry bilaterally. GASTROINTESTINAL: Abdomen soft, not distended, no reaction to deep palpation. Bowel sounds (+) MUSCULOSKELETAL: Extremities without clubbing, cyanosis,Has mild edema. Feet warm and well perfused NEURO: Moves fingers, mouths at tube, no spont eye opening, tracking noted. PSYCH: Unable to assess LINE: No evidence of infection : Ortega in place, urine looks clear Assessment & Plan Remarks IMPRESSION Possible new Sepsis Pneumococcal PNA, resistant strain - S to teflaro Acute resp failure on vent - possibly due to pulmonary edema, has known severe , BNP elevated - concern for new PNA but he has no fever. WBC normal, not a lot of secretions. New fevers and ARDS physiology. Acute renal failure: sepsis, prerenal Acute transaminitis: sepsis Acute COPD exacerbation Severe Aortic Stenosis with Pulm edema RECS: Continue Teflaro IV Continue Levaquin IV Procalcitonin normal range. Due to fevers and pending cultures will pursue an infectious as well as non infectious disease cause for fever workup. Follow bld cx, sputum cx. Changed ortega 09/23/16 and UA sent. Follow. D.w Senior Shipping Clerk, RN. Spoke with family, (palliative care) appreciate assistance. I will be OOT from 09/24/16 to 10/01/16 other ID MDs to cover for me. Saba Henderson MD Sep 23, 2016 13:04
--- NOTE | 2016-09-23 13:27 | HHI.FPPN ---
Subjective Remarks Patient was seen and examined this morning. He remains on fentanyl but is on a sedation holiday this morning. Per nurse, patient has not been responsive to commands. Family has been at bedside and wants a CT scan. Temperature max 102F over last 24hr, and Diflucan was started per ID. Urinary catheter removed and replaced, culture pending. He has had some mucus plugs in ET tube since AM shift started. (Corina Person MD R1) Objective Vitals Vital Signs Date Time Temp Pulse Resp B/P Pulse Ox O2 Delivery O2 Flow Rate FiO2 09/23/16 12:30 95 50 09/23/16 12:00 88 09/23/16 12:00 50 09/23/16 12:00 99.8 96 22 164/72 94 09/23/16 10:15 95 50 09/23/16 10:00 82 09/23/16 08:02 100.8 87 20 100/54 09/23/16 08:00 85 09/23/16 06:00 82 09/23/16 04:24 96 50 09/23/16 04:00 83 09/23/16 04:00 50 09/23/16 04:00 99.6 83 21 150/67 97 09/23/16 02:00 82 09/23/16 01:36 97 50 09/23/16 00:00 50 09/23/16 00:00 102.5 89 20 124/58 95 09/23/16 00:00 89 09/22/16 22:20 93 50 09/22/16 22:00 92 09/22/16 20:00 98 09/22/16 20:00 102.9 97 22 153/66 92 09/22/16 20:00 50 09/22/16 19:15 96 50 09/22/16 18:14 94 50 09/22/16 16:00 102.4 92 24 145/63 92 09/22/16 16:00 50 I/O 09/22/16 09/22/16 09/22/16 09/23/16 09/23/16 09/23/16 07:00 15:00 23:00 07:00 15:00 23:00 Intake Total 929 ml 1161 ml 732 ml 622 ml Output Total 1450 ml 2750 ml 3400 ml 800 ml Balance -521 ml -1589 ml -2668 ml -178 ml IV Total 573 ml 438 ml 376 ml 262 ml Tube Feeding 356 ml 693 ml 296 ml 300 ml Tube Irrigant 60 ml 60 ml Other 30 ml Output Urine Total 1450 ml 2750 ml 3400 ml 800 ml # Bowel Movements 1 1 0 1 (Corina Person MD R1) Result Diagram: 09/23/16 0418 09/23/16 0859 Imaging Last Impressions Chest X-Ray 09/23/16 0600 Signed Impressions: Service Date/Time: September 03:17 - CONCLUSION: Decreasing bilateral pulmonary parenchymal opacity likely representing decreasing pulmonary edema. Jasson Cobos MD Upper Extremity Ultrasound 09/23/16 0000 Signed Impressions: Service Date/Time: September 08:54 - CONCLUSION: No DVT. Frank Og MD Lower Extremity Ultrasound 09/11/16 0000 Signed Impressions: Service Date/Time: Sunday, September 11, 2016 12:30 - CONCLUSION: No DVT is identified within either lower extremity. Frank Young MD CT Angiography 09/10/16 0000 Signed Impressions: Service Date/Time: Sunday, September 11, 2016 01:05 - CONCLUSION: No evidence of pulmonary embolism. Frank Hardin MD Abdomen Ultrasound 09/07/16 0000 Signed Impressions: Service Date/Time: Wednesday, September 07, 2016 16:45 - CONCLUSION: Heterogeneous hepatic echotexture consistent with chronic liver disease. Splenomegaly Mild to moderate ascites Mildly thickened gallbladder wall without evidence of gallstones. No evidence of hydronephrosis. Isidro Oliver MD Chest CT 09/05/16 0000 Signed Impressions: Service Date/Time: Monday, September 05, 2016 15:37 - CONCLUSION: 1. Cardiomegaly with diffuse ground glass densities and consolidation likely pulmonary edema and/or pneumonia. 2. Small bilateral pleural effusions. 3. Prominent lymphadenopathy in the mediastinum. Cameron Archer MD Objective Remarks Gen.: Lying in bed, intubated. Currently on sedation holiday. Head: Normocephalic. Atraumatic. EENT: Pupils equal round and reactive to light. Nose without drainage. Airway intact. Cardiovascular: Regular rate and rhythm. Systolic ejection murmur along left sternal border. Respiratory: CTAB bilaterally. Abdomen: Soft, nontender, nondistended. No peritoneal signs. Musculoskeletal: No gross deformities. Edema noted. Skin: No obvious rashes or erythema. Neuro: Intubated. On fentanyl. Not tracking or responding to commands. : [place] in place draining dark urine Extremities: Compression boots on bilaterally Medications and IVs Inpatient Medications Acetaminophen 650 mg 650 mg Q6H PRN PO FEVER Last administered on 09/22/16 23: 08; Start 09/22/16 at 17:45 Acetazolamide Sodium (Diamox Inj) 500 mg Q8H IV PUSH Last administered on 09:18; Start 09/21/16 at 17:00; Stop 09/22/16 at 09:01; Status DC Albumin Human (Albumin 25% Inj) 12.5 gm Q8H IV Last administered on 09/21/16 03:15; Start 09/20/16 at 10:45; Stop 09/21/16 at 02:46; Status DC Albumin Human 12.5 gm 12.5 gm Q8H IV Last administered on 09/22/16 06:06; Start 09/21/16 at 14:00; Stop 09/22/16 at 06:01; Status DC Albuterol Sulfate (Albuterol Neb) 2.5 mg Q2HR NEB PRN NEB SOB/WHEEZING Last administered on 09/22/16 18:13; Start 09/01/16 at 14:00 Albuterol/ Ipratropium (Duoneb Neb) 1 ampule Q6HR NEB NEB Last administered on 09/16/16 09:02; Start 09/12/16 at 12:45; Stop 09/16/16 at 12:45; Status DC Albuterol/ Ipratropium 1 ampule 1 ampule Q15M INH Last administered on 12:39; Start 08/31/16 at 11:15; Stop 08/31/16 at 11:31; Status DC Alprazolam (Xanax) 1 mg ONCE ONCE PO Last administered on 09/05/16 01:18; Start 09/05/16 at 01:15; Stop 09/05/16 at 01:16; Status DC Amiodarone HCl 150 mg/Dextrose 100 ml @ 100 mls/hr ONCE ONCE IV Last administered on 09/09/16 12:52; Start 09/09/16 at 11:00; Stop 09/09/16 at 11:59; Status DC Amiodarone HCl/ Dextrose (Cordarone Inj/ D5W ([place]) Inj) 250 ml @ 0 mls/hr CONTINUOUS IV Last administered on 09/10/16 17:20; Start 09/09/16 at 12:00; Stop 09/11/16 at 15:55; Status DC Amlodipine Besylate 10 mg 10 mg DAILY PO Last administered on 09/06/16 07:47; Start 09/02/16 at 09:00; Stop 09/06/16 at 08:12; Status DC Aspirin (Aspirin Chew) 81 mg DAILY PO Last administered on 09/23/16 08:45; Start 09/12/16 at 09:00 Aspirin (Aspirin) 325 mg DAILY PO Last administered on 09/11/16 09:20; Start at 09:00; Stop 09/11/16 at 11:34; Status DC Azithromycin 500 mg 500 mg Q24H PO Last administered on 09/06/16 11:36; Start 09/01/16 at 12:00; Stop 09/07/16 at 10:44; Status DC Azithromycin/ Sodium Chloride (Zithromax Inj/ NS 250 ml Inj) 250 ml @ 250 mls/ hr ONCE STAT IV Last administered on 08/31/16 12:21; Start 08/31/16 at 12:11 ; Stop 08/31/16 at 13:10; Status DC Bumetanide (Bumex Inj) 100 ml @ 8 mls/hr CONTINUOUS IV Last administered on 02:51; Start 09/21/16 at 14:00 Bumetanide 2 mg 2 mg NOW ONCE IV PUSH Last administered on 09/13/16 08:26; Start 09/13/16 at 08:15; Stop 09/13/16 at 08:16; Status DC Buspirone HCl (Buspar) 10 mg BID PO Last administered on 09/12/16 08:33; Start 08/31/16 at 21:00; Status Hold Carvedilol (Coreg) 6.25 mg Q12HR PO Last administered on 09/05/16 20:52; Start 09/04/16 at 21:00; Stop 09/06/16 at 08:13; Status DC Carvedilol 6.25 mg 6.25 mg Q12HR PO Last administered on 09/23/16 08:44; Start 09/06/16 at 09:00 Cefepime HCl 2000 mg/Sodium Chloride 100 ml @ 200 mls/hr ONCE STAT IV Last administered on 08/31/16 13:36; Start 08/31/16 at 12:11; Stop 08/31/16 at 12:40 ; Status DC Ceftaroline Fosamil/Sodium Chloride (Teflaro Inj/NS Inj) 100 ml @ 100 mls/hr Q12H IV Last administered on 09/23/16 01:06; Start 09/22/16 at 13:00 Ceftriaxone Sodium 2000 mg/ Sodium Chloride 100 ml @ 200 mls/hr Q24H IV Last administered on 09/06/16 20:10; Start 09/06/16 at 18:00; Stop 09/07/16 at 10:44 ; Status DC Ceftriaxone Sodium/Sodium Chloride (Rocephin Inj/NS Inj) 100 ml @ 200 mls/hr Q24H IV Last administered on 09/03/16 09:55; Start 09/01/16 at 09:00; Stop at 10:05; Status DC Chlorhexidine Gluconate (Chlorhexidine 2% Cloth) 3 pack DAILY@04 TOP Last administered on 09/09/16 04:00; Start 09/05/16 at 04:00; Stop 09/09/16 at 04:01; Status DC Chlorhexidine Gluconate 15 ml 15 ml BID@08,20 MT Last administered on 21:53; Start 09/06/16 at 20:00; Stop 09/20/16 at 11:12; Status DC Chlorhexidine Gluconate 3 pack 3 pack UNSCH PRN TOP HYGIENIC CARE; Start at 20:00; Stop 09/09/16 at 19:51; Status DC Chlorothiazide Sodium (Diuril Inj) 500 mg ONCE ONCE IV ; Start 09/20/16 at 10: 45; Stop 09/20/16 at 11:09; Status DC Chlorothiazide Sodium 250 mg 250 mg ONCE ONCE IV Last administered on 14:24; Start 09/21/16 at 12:00; Stop 09/21/16 at 12:01; Status DC Dextrose (D50w (Vial) Inj) 25 ml UNSCH PRN IV PUSH HYPOGLYCEMIA-SEE COMMENTS; Start 09/20/16 at 10:45 Diltiazem HCl 15 mg 15 mg ONCE ONCE IVP Last administered on 09/05/16 08:27; Start 09/05/16 at 07:45; Stop 09/05/16 at 07:46; Status DC Diltiazem HCl/ Sodium Chloride (Cardizem Inj/NS Inj) 125 ml @ 0 mls/hr TITRATE IV Last administered on 09/06/16 05:28; Start 09/05/16 at 08:00; Stop at 08:23; Status DC Esmolol HCl (Brevibloc Bolus Inj) 45 mg BOLUS ONCE IV PUSH Last administered on 09/04/16 22:50; Start 09/04/16 at 22:30; Stop 09/04/16 at 22:31; Status DC Esmolol HCl/ Sodium Chloride (Brevibloc Drip Inj Premix) 250 ml @ 0 mls/hr CONTINUOUS WT BASED IV Last administered on 09/05/16 07:32; Start 09/04/16 at 22:30; Stop 09/05/16 at 07:41; Status DC Fentanyl Citrate (fentaNYL DRIP) 250 ml @ 0 mls/hr TITRATE IV Last administered on 09/23/16 02:04; Start 09/12/16 at 15:00 Ferrous Sulfate (Ferrous Sulfate Liq) 300 mg BID PO Last administered on 08:47; Start 09/12/16 at 21:00 Ferrous Sulfate (Ferrous Sulfate) 325 mg BID PO Last administered on 09/12/16 08:33; Start 09/06/16 at 09:00; Stop 09/12/16 at 19:35; Status DC Fluconazole/ Sodium Chloride (Diflucan 100 Mg Premix Bag) 50 ml @ 50 mls/hr Q24H IV Last administered on 09/23/16 08:46; Start 09/23/16 at 09:00 Furosemide (Lasix Inj) 60 mg ONCE ONCE IV PUSH Last administered on 09/04/16 10:00; Start 09/04/16 at 10:00; Stop 09/04/16 at 10:06; Status DC Furosemide (Lasix) 20 mg ONCE ONCE PO Last administered on 09/11/16 17:41; Start 09/11/16 at 16:00; Stop 09/11/16 at 16:19; Status DC Furosemide 20 mg 20 mg BID@09,18 IV PUSH Last administered on 09/12/16 18:29; Start 09/12/16 at 18:00; Stop 09/13/16 at 07:52; Status DC Furosemide 40 mg 40 mg BID@,18 IV PUSH Last administered on 09/05/16 08:28; Start 09/04/16 at 18:00; Stop 09/05/16 at 16:15; Status DC Glucagon (Glucagon Inj) 1 mg UNSCH PRN OTHER HYPOGLYCEMIA-SEE COMMENTS; Start 09/14/16 at 08:00; Stop 09/20/16 at 11:07; Status DC Haloperidol Lactate (Haldol Inj) 2 mg ONCE ONCE IM ; Start 09/01/16 at 01:45; Stop 09/01/16 at 01:50; Status DC Haloperidol Lactate 2 mg 2 mg STAT ONCE IV Last administered on 09/12/16 11:32 ; Start 09/12/16 at 11:30; Stop 09/12/16 at 11:31; Status DC Heparin Sodium (Porcine) (Heparin Inj) 5,000 units Q12HR SQ Last administered on 09/23/16 08:44; Start 09/20/16 at 21:00 Heparin Sodium (Porcine) 2500 units 2,500 units UNSCH PRN IV APTT 25 TO 39 Last administered on 09/01/16 01:58; Start 08/31/16 at 19:00; Stop 09/01/16 at 07:31; Status DC Heparin Sodium/ Dextrose (Heparin-D5W Inj) 250 ml @ 0 mls/hr TITRATE IV Last administered on 08/31/16 13:34; Start 08/31/16 at 13:00; Stop 09/01/16 at 07:31 ; Status DC Hydralazine HCl (Apresoline Inj) 10 mg Q6H PRN IV SBP> OR = 160, DBP> OR = 100 Last administered on 09/09/16 04:10; Start 09/09/16 at 03:15 Hydralazine HCl (Apresoline) 50 mg Q8HR PO Last administered on 09/17/16 06:21 ; Start 09/12/16 at 08:00; Status Hold Insulin Aspart (NovoLOG SUPPLEMENTAL SCALE) 1 Q6H SQ Last administered on 06:00; Start 09/07/16 at 12:00; Stop 09/11/16 at 07:56; Status DC Insulin Detemir (Levemir Inj) 20 units Q12HR SQ Last administered on 09/23/16 08:46; Start 09/20/16 at 21:00 Insulin Human Regular (NovoLIN R SUPPLEMENTAL SCALE) 1 Q4HR SQ Last administered on 09/23/16 12:00; Start 09/20/16 at 12:00 IV Flush (NS Flush) 2 ml UNSCH PRN IVF FLUSH AFTER USING IV ACCESS Last administered on 09/20/16 20:31; Start 08/31/16 at 11:15 IV Flush 2 ml 2 ml UNSCH PRN IVF FLUSH AFTER USING IV ACCESS; Start 09/09/16 at 10:45 Levofloxacin/ Dextrose 100 ml @ 100 mls/hr Q24H IV Last administered on 12:23; Start 09/22/16 at 12:00 Levothyroxine Sodium (Synthroid) 50 mcg DAILY@06 PO Last administered on 05:08; Start 09/01/16 at 06:00 Lorazepam (Ativan Inj) 0.25 mg Q6H PRN IV PUSH ANXIETY Last administered on 09/12 04:53; Start 09/06/16 at 17:45; Stop 09/18/16 at 16:48; Status DC Losartan Potassium (Cozaar) 50 mg DAILY PO ; Start 09/01/16 at 09:00; Stop 09/02 at 08:01; Status DC Magnesium Oxide 800 mg 800 mg UNSCH PRN PO For Magnesium 1.2 - 1.6 mg/dL; Start 09/21/16 at 13:15 Magnesium Sulfate 2 gm/Sodium Chloride 100 ml @ 50 mls/hr UNSCH PRN IV For Magnesium 1.2 - 1.6 mg/dL; Start 09/21/16 at 13:15 Magnesium Sulfate 4 gm/Sodium Chloride 100 ml @ 50 mls/hr UNSCH PRN IV For Magnesium 0.9 - 1.1 mg/dL; Start 09/21/16 at 13:15 Methylprednisolone Sodium Succinate (SoluMEDROL INJ) 40 mg DAILY IV Last administered on 09/20/16 09:15; Start 09/14/16 at 09:00; Stop 09/20/16 at 11:31 ; Status DC Methylprednisolone Sodium Succinate 60 mg 60 mg Q8H IV Last administered on 09/08 00:56; Start 09/03/16 at 17:00; Stop 09/08/16 at 08:21; Status DC Metronidazole (Flagyl 500 Mg Inj) 100 ml @ 100 mls/hr Q8H IV Last administered on 09/07/16 09:18; Start 09/06/16 at 18:00; Stop 09/07/16 at 10:46 ; Status DC Miscellaneous Information Patient in critical care unit? Ass... [id number] Last administered on 09/04/16 20:00; Start 09/04/16 at 20:00 Morphine Sulfate 2 mg 2 mg Q4H PRN IV PAIN 1 TO 10 Last administered on 16:06; Start 09/05/16 at 11:30 Nitroglycerin (Nitroglycerin 2% Oint) 0.5 inch Q6H PRN TOPICAL CHEST PAIN; Start 08/31/16 at 15:00; Stop 09/01/16 at 07:32; Status DC Ondansetron HCl (Zofran Inj) 4 mg Q6H PRN IV NAUSEA OR VOMITING; Start at 13:45 Pantoprazole Sodium (Protonix Inj) 40 mg Q12H IV PUSH Last administered on 09/23 05:08; Start 09/13/16 at 18:00 Pharmacy Profile Note 0 ml @ 0 mls/hr UNSCH OTHER ; Start 09/03/16 at 10:15; Stop 09/04/16 at 13:11; Status DC Piperacillin Sod/ Tazobactam Sod 50 ml @ 100 mls/hr Q6H IV Last administered on 09/06/16 11:40; Start 09/06/16 at 12:00; Stop 09/06/16 at 16:50; Status DC Piperacillin Sod/ Tazobactam Sod (Zosyn 3.375 Gm Premix) 50 ml @ 100 mls/hr Q6H IV Last administered on 09/04/16 05:57; Start 09/03/16 at 11:00; Stop at 09:31; Status DC Piperacillin Sod/ Tazobactam Sod (Zosyn 4.5 Gm Premix) 100 ml @ 200 mls/hr Q6H IV Last administered on 09/06/16 05:28; Start 09/04/16 at 12:00; Stop at 08:40; Status DC Potassium Phosphate (K-Phos) 2,000 mg Q4H PRN PO For Phosphorus < 2.5 mg/dL; Start 09/21/16 at 13:15 Potassium Phosphate 2000 mg 2,000 mg UNSCH PRN PO/TUBE SEE LABEL COMMENTS; Start 09/21/16 at 13:15 Potassium Phosphate 30 mmol/ Sodium Chloride 260 ml @ 42 mls/hr UNSCH PRN IV SEE LABEL COMMENTS; Start 09/21/16 at 13:15 Potassium Chloride (KCl 40 Meq Premix Inj) 100 ml @ 25 mls/hr UNSCH PRN IV For Potassium 3.3 - 3.5 mEq/L; Start 09/21/16 at 13:15 Potassium Chloride (KCl) 20 meq DAILY PO Last administered on 09/12/16 08:33; Start 09/10/16 at 09:00; Stop 09/13/16 at 07:52; Status DC Pravastatin Sodium (Pravachol) 40 mg HS PO Last administered on 09/22/16 20:42 ; Start 09/22/16 at 21:00 Prednisone (Deltasone) 50 mg DAILY PO ; Start 09/02/16 at 09:00; Stop 09/02/16 at 09:00; Status DC Prednisone (predniSONE LIQ) 5 mg Taper DAILY PO Last administered on 09/23/16 08:45; Start 09/21/16 at 09:00; Stop 09/23/16 at 08:59; Status DC Pregabalin (Lyrica) 150 mg BID PO Last administered on 09/12/16 08:34; Start at 21:00; Status Hold Primidone (Mysoline) 100 mg TID PO Last administered on 09/23/16 08:45; Start 08/31/16 at 18:00 Propofol (Diprivan 1000 Mg/100ml Inj) 100 ml @ 0 mls/hr TITRATE IV Last administered on 09/22/16 06:18; Start 09/12/16 at 12:45 Senna/Docusate Sodium (Shantelle-Colace) 2 tab DAILY PO Last administered on 09:00; Start 09/06/16 at 17:45 Sertraline HCl (Zoloft) 50 mg DAILY PO Last administered on 09/23/16 08:44; Start 09/13/16 at 09:00 Sodium Chloride (12 NS 1000 ml Inj) 1,000 ml @ 50 mls/hr Q20H IV Last administered on 09/13/16 12:40; Start 09/13/16 at 12:00; Stop 09/14/16 at 07:54; Status DC Sodium Chloride (NS 1000 ml Inj) 1,000 ml @ 50 mls/hr Q20H IV Last administered on 09/07/16 01:32; Start 09/06/16 at 07:15; Stop 09/07/16 at 07:14 ; Status DC Sodium Phosphate/ Sodium Chloride (Sodium Phosphate Inj/NS 250 ml Inj) 250 ml @ 42 mls/hr UNSCH PRN IV For Phosphorus < 2.5 mg/dL; Start 09/21/16 at 13:15 Trazodone HCl (Desyrel) 100 mg HS PO Last administered on 09/22/16 20:42; Start 08/31/16 at 21:00 Vancomycin HCl 2000 mg/Sodium Chloride 520 ml @ 250 mls/hr ONCE ONCE IV Last administered on 09/03/16 12:00; Start 09/03/16 at 12:00; Stop 09/03/16 at 14:04 ; Status DC Vancomycin HCl/ Sodium Chloride (Vancomycin Inj/ NS 250 ml Inj) 250 ml @ 250 mls/hr Q12H IV Last administered on 09/04/16 11:46; Start 09/04/16 at 00:00; Stop 09/04/16 at 13:11; Status DC Vancomycin HCl/ Sodium Chloride (Vancomycin Inj/ NS 500 ml Inj) 515 ml @ 250 mls/hr ONCE ONCE IV Last administered on 09/06/16 16:04; Start 09/06/16 at 16 :00; Stop 09/07/16 at 10:44; Status DC Water (Free Water) 300 ml Q4HR G-TUBE Last administered on 09/21/16t 12:00; Start 09/20/16 at 12:00; Status Hold (Corina Person MD R1) Urinary Catheter: Yes Assessment to: Continue Date of Insertion: Sep 23, 2016 (Corina Person MD R1) A/P Assessment and Plan 71-year-old male who presented with a 5-day history of shortness of breath and nonproductive cough. ACS rule out positive for NSTEMI. Patient has a history of COPD and was admitted with sepsis with cardiology consultation for NSTEMI. Developed respiratory distress on 09/04 and was transferred to the ICU with critical care consult. Tolerated BiPAP vs nonrebreather vs nasal cannula for several days, but due to worsening respiratory distress, he was intubated on 09/12. Cardiology to perform left heart catheterization when clinically better. Pulmonology on board. Nephrology consulted for PHILIPPE. Hematology consulted due to thrombocytopenia. Currently being managed by critical care physician. Remains on fentanyl; he is currently undergoing sedation holidays off propofol. 09/21/16: Palliative care consulted per 's request; she notes that she and patient's son have different views on patient's prognosis and she thinks Palliative Care would be helpful in EOL planning as patient "doesn't have any papers" identifying his own wishes. 09/22/16: Patient was made Alternative Code: DNR (no shock or chest compressions ) after discussion with family. 09/23/16: Sugars have been in 400s. On Levemir 20U BID. Sedation holidays off propofol. Remains on fentanyl. Discharge Planning Unclear prognosis at this time (Corina Person MD R1) Attending Attestation Patient seen and examined. Case reviewed and discussed. Agree with plan of care as discussed with me and documented in the resident note. (She Harris MD) Problem List: (1) ARDS (adult respiratory distress syndrome) Status: Acute Plan: Intubated and sedated in the ICU, PEEP of 15 today -Critical care managing - will follow recs -Consider placing in a prone bed -Decrease FiO2 as tolerated at FiO2 of 50%, per respiratory patient desaturates with any movement. -Daily sedation vacation -Steroids per critical care -DuoNebs every 6 hours -I's and O's -Daily weights (2) NSTEMI (non-ST elevated myocardial infarction) Status: Acute Plan: -Patient with elevated troponins to 1.[address] elevations in V1 V3 on admission -Cardiology signed off - may reconsult after clinical improvement -Left heart catheter when clinically able to tolerate procedure -Continue medical management (3) Aortic stenosis Status: Acute Plan: -Cardiothoracic surgery consulted -Cardiology and cardiothoracic surgery to discuss plans going forward -Will need to optimize medical management prior to performing any procedures -Pulmonology consulted given high surgical risk- appreciate recommendations (4) Pneumonia Status: Resolved Plan: -Strep pneumoniae in sputum culture -Ceftarolin 300 mg IV discontinued -WBC stable at 6,000. Low grade temperatures of 100.9. F. -Procalcitonin wnl on 09/15 -Infectious disease has signed off (5) CHF due to valvular disease Status: Acute Plan: Echo performed on 09/02 showed EF of 5055 percent. -Aortic valve with moderate to severe stenosis -Coreg 3.125 mg by mouth every 12 hours (6) PHILIPPE (acute kidney injury) Status: Acute Plan: Stable -Nephrology on board -Monitor I's and O's -Avoid nephrotoxins -Off Bumex drip -Bumex ggt, d/c diuril. Good UO -2.5 L in 24 hours. (7) Thrombocytopenia Status: Acute Plan: Stable -Transfuse for platelets less than 20K -Decreased aspirin to 81mg daily, discontinue for platelets less than 40K -Hematology consulted -Suspect due to DIC/Consumption--fibrinogen preserved -Heparin subcutaneous discontinued -HIT positive, but likely false positive, TIGIST wnl and result does not support HIT -Hepatitis panel negative -Abdominal ultrasound on 09/07 shows heterogeneous hepatic echo texture consistent with chronic liver disease, splenomegaly, mild to moderate ascites -Continue to monitor daily CBC (8) Diabetes Status: Chronic Plan: Patient's home regimen is NPH 25 units every morning and 50 units daily at bedtime -Intubated, on Glucerna tube feeds -Currently on Levemir 20 units twice a day per critical care -Continue high scale SSI -Taper steroids -Adjust insulin regimen as needed (9) COPD exacerbation Status: Acute Plan: Patient with known COPD and [id number] history of smoking Albuterol every 2 hours when necessary DuoNeb nebs every 4 hours scheduled Prednisone 10 mg taper per CC (10) Hypertension Status: Chronic Plan: Carvedilol 6.25 bid q 12 hr. (11) Anxiety and depression Status: Chronic Plan: -Continue home meds on adjusted regimen -Trazodone 100 mg by mouth daily - -Sertraline 100 mg by mouth daily - taper to 50mg -Buspirone 10mg BID - hold -Primidone 100mg PO BID - continue (12) FEN/DVT PPX/GI PPX Status: Acute Plan: Fluids: per CC Electrolytes: Will monitor and replace as needed Nutrition: Tube feeds, Glucerna DVT Prophylaxis: Bilateral SCDs, heparin discontinued due to thrombocytopenia GI Prophylaxis: None currently wdw Dr. Harris. (Corina Person MD R1) Problem Qualifiers (1) Aortic stenosis: Qualified Code: I35.0 - Aortic valve stenosis, unspecified etiology (2) Pneumonia: Qualified Code: J18.9 - Pneumonia of both lungs due to infectious organism, unspecified part of lung (3) Diabetes: (4) Hypertension: Qualified Code: I10 - Essential hypertension Corina Person MD R1 Sep 23, 2016 13:27 She Harris MD Sep 23, 2016 17:40
--- NOTE | 2016-09-23 14:52 | RADRPT ---
EXAM DATE/TIME: 09/23/2016 14:30 [facility] COMPARISON: CHEST SINGLE AP, September 23, 2016, 3:17. INDICATIONS : Short of breath. MEDICAL HISTORY : Chronic obstructive pulmonary disease. SURGICAL HISTORY : None. ENCOUNTER: Subsequent ACUITY: 1 month PAIN SCORE: Non-responsive. LOCATION: Bilateral chest FINDINGS: ET tube and nasogastric tube are in good position. Patchy air-space disease is present in both lung bases, worse on the left than the right. The heart is minimally enlarged. Pulmonary vasc ularity is normal. There is no pneumothorax. CONCLUSION: 1. Support apparatus in good position. 2. Patchy air-space disease, increasing in the interval. Ed Rogel MD FACR on September 23, 2016 at 14:47 Board Certified Radiologist. This report was verified electronically.
[2016-09-23 15:06] LABS: ALKALINE PHOSPHATASE 336 U/L (45-117); ALT (GPT) 24 U/L (12-78); ANION GAP 11 MEQ/L (5-15); AST (GOT) 28 U/L (15-37); BICARBONATE 37.4 MEQ/L (21.0-32.0); BLOOD UREA NITROGEN 63 MG/DL (7-18); CHLORIDE 96 MEQ/L (98-107); GLOMERULAR FILTRATION RATE 44 ML/MIN (>89); MAGNESIUM 2.5 MG/DL (1.5-2.5); POTASSIUM 3.5 MEQ/L (3.5-5.1); SODIUM (NA) 144 MEQ/L (136-145); TOTAL BILIRUBIN ADULT 0.8 MG/DL (0.2-1.0)
--- NOTE | 2016-09-23 15:26 | HHI.HCPN ---
Reason for visit a. To assist with evaluation and management of symptoms including: encephalopathy; dyspnea; anxiety; depression. b. To assist medical decision maker(s) with: better understanding of current medical conditions; weighing benefits/burdens of medical treatment options; making medical treatment decisions. . Subjective/Interval History Patient remains minimally responsive on mechanical ventilation in the MICU. He was started back on sedation last night for reported agitation. Sedation has been off for only 45 minutes at the time of my visit. Patient has his eyes wide open and moves his extremities, but does not track, does not follow commands, and does not blink with a threatening hand movement toward his eyes. Family has been at bedside and confirms the lack of responsiveness. Patient continues with fevers -- Temp to 102.9 at 20:00 last night. Other VS stable. Patient is on CPAP at time of my visit. Bowels are moving. Good diuresis continues. Nursing pain level scores are consistently "0." Has not received opiates other than the fentanyl drip in last 24 hours. CXR improving. Stool is hemoccult positive. . . Family/friend interactions Spoke with spouse and [id number] at bedside. They are curious if the patient will get a CT of the head today. Spouse confides that she "doesn't want to prolong this," but feels the patient' s son doesn't fully understand the prognosis and will continue to want aggressive care. Spouse also has concerns about how she would take care of him if he came home and was no longer independent and also concerned about how the patient would feel if he ended up in a nursing facility. We discussed Dr. Marie's plan of continue the current plan through the weekend. There is still hope that with his brisk diuresis, his respiratory function will improve and weaning may be possible and tracheostomy can be avoided. I offered to meet with son and any other family members in the future if it would help. . Advance Directives Living Will: Never completed Health Care Surrogate: Never completed Durable Power of Regional Account Manager: Never completed Advance Directive Specifics Date completed: Never completed. . Health Care Surrogate(s): No written designation of health care surrogate . . Documented care wishes: No written documentation of health care goals/preferences . Objective Vital Signs Date Time Temp Pulse Resp B/P Pulse Ox O2 Delivery O2 Flow Rate FiO2 09/23/16 14:37 92 09/23/16 12:30 95 50 3/16/17 12:00 88 09/23/16 12:00 50 09/23/16 12:00 99.8 96 22 164/72 94 09/23/16 10:15 95 50 09/23/16 10:00 82 09/23/16 08:02 100.8 87 20 100/54 09/23/16 08:00 85 09/23/16 06:00 82 09/23/16 04:24 96 50 09/23/16 04:00 83 09/23/16 04:00 50 09/23/16 04:00 99.6 83 21 150/67 97 09/23/16 02:00 82 09/23/16 01:36 97 50 09/23/16 00:00 50 09/23/16 00:00 102.5 89 20 124/58 95 09/23/16 00:00 89 09/22/16 22:20 93 50 09/22/16 22:00 92 09/22/16 20:00 98 09/22/16 20:00 102.9 97 22 153/66 92 09/22/16 20:00 50 09/22/16 19:15 96 50 09/22/16 18:14 94 50 09/22/16 16:00 102.4 92 24 145/63 92 09/22/16 16:00 50 Intake & Output 09/23/16 09/23/16 07:00 19:00 Intake Total 1354 ml 752 ml Output Total 4200 ml 1800 ml Balance -2846 ml -1048 ml IV Total 638 ml 372 ml Tube Feeding 596 ml 280 ml Tube Irrigant 120 ml 100 ml Output Urine Total 4200 ml 1800 ml # Bowel Movements 1 1 . Physical Exam CONSTITUTIONAL/GENERAL: This is an adequately nourished patient, intubated, mechanically ventilated, eyes open but non interactive in the MICU TUBES/LINES/DRAINS: soft wrist restraints; ortega catheter; OG tube; ET tube; SCDs; peripheral IV SKIN: No jaundice, rashes, or lesions. Ecchymoses on upper extremities. No wounds seen anteriorly. Skin temperature appropriate. Not diaphoretic. EYES: Pupils equal and round.Eyes stare straight ahead. No scleral icterus. No injection or drainage. Fundi not examined. ENT: Unable to evaluate hearing. Nose without bleeding or purulent drainage. NECK: Trachea midline. CARDIOVASCULAR: Regular rate and rhythm without gallops, or rubs. 2+ systolic murmur present. No JVD. RESPIRATORY/CHEST: Symmetric, unlabored respirations. Clear to auscultation. Breath sounds equal bilaterally. No wheezes, rales, or rhonchi. GASTROINTESTINAL: Abdomen soft, slightly distended. No hepato-splenomegaly, or palpable masses. No guarding. Bowel sounds present. GENITOURINARY: Without palpable bladder distension. Ortega catheter in place. MUSCULOSKELETAL: Extremities without clubbing, cyanosis, or edema. No mottling or clubbing. LYMPHATICS: Not examined. NEUROLOGICAL: Eyes open staring forward. Does not track. Spontaneous movements seen in all extremities except RLE. Does not have blink reflex to threat. PSYCHIATRIC: Unable to evaluate due to level of responsiveness. . Diagnostic Tests Laboratory Laboratory Tests Test 09/21/16 09/21/16 09/21/16 09/22/16 06:42 14:02 21:01 04:02 White Blood Count 7.9 TH/MM3 6.1 TH/MM3 (4.0-11.0) (4.0-11.0) Red Blood Count 2.73 MIL/MM3 2.81 MIL/MM3 (4.50-5.90) (4.50-5.90) Hemoglobin 7.7 GM/DL 7.9 GM/DL (13.0-17.0) (13.0-17.0) Hematocrit 24.0 % 24.0 % (39.0-51.0) (39.0-51.0) Mean Corpuscular Volume 88.0 FL 85.3 FL (80.0-100.0) (80.0-100.0) Mean Corpuscular Hemoglobin 28.3 PG 28.1 PG (27.0-34.0) (27.0-34.0) Mean Corpuscular Hemoglobin 32.2 % 32.9 % Concent (32.0-36.0) (32.0-36.0) Red Cell Distribution Width 16.7 % 16.5 % (11.6-17.2) (11.6-17.2) Platelet Count 84 TH/MM3 88 TH/MM3 (150-450) (150-450) Mean Platelet Volume 11.5 FL 10.5 FL (7.0-11.0) (7.0-11.0) Neutrophils (%) (Auto) % (16.0-70.0) Lymphocytes (%) (Auto) % (9.0-44.0) Monocytes (%) (Auto) % (0.0-8.0) Eosinophils (%) (Auto) % (0.0-4.0) Basophils (%) (Auto) % (0.0-2.0) Neutrophils # (Auto) TH/MM3 (1.8-7.7) Lymphocytes # (Auto) TH/MM3 (1.0-4.8) Monocytes # (Auto) TH/MM3 (0-0.9) Eosinophils # (Auto) TH/MM3 (0-0.4) Basophils # (Auto) TH/MM3 (0-0.2) CBC Comment AUTO DIFF Differential Total Cells 100 Counted Neutrophils % (Manual) 72 % (16-70) Band Neutrophils % 7 % (0-6) Lymphocytes % 16 % (9-44) Monocytes % 4 % (0-8) Eosinophils % 1 % (0-4) Neutrophils # (Manual) 6.2 TH/MM3 (1.8-7.7) Differential Comment FINAL DIFF MANUAL Platelet Estimate LOW (NORMAL) Platelet Morphology Comment ENLARGED (NORMAL) Prothrombin Time 11.2 SEC (9.8-11.6) Prothromb Time International 1.0 RATIO Ratio Activated Partial 21.2 SEC Thromboplast Time (24.3-30.1) Fibrinogen 571 mg/dL (181-393) Sodium Level 140 MEQ/L 139 MEQ/L 138 MEQ/L 142 MEQ/L (136-145) (136-145) (136-145) (136-145) Potassium Level 3.6 MEQ/L 3.4 MEQ/L 2.8 MEQ/L 3.1 MEQ/L (3.5-5.1) (3.5-5.1) (3.5-5.1) (3.5-5.1) Chloride Level 92 MEQ/L 92 MEQ/L 89 MEQ/L 92 MEQ/L (98-107) (98-107) (98-107) (98-107) Carbon Dioxide Level 38.8 MEQ/L 37.0 MEQ/L 40.8 MEQ/L 38.6 MEQ/L (21.0-32.0) (21.0-32.0) (21.0-32.0) (21.0-32.0) Anion Gap 9 MEQ/L (5-15) 10 MEQ/L (5-15) 8 MEQ/L (5-15) 11 MEQ/L (5-15) Blood Urea Nitrogen 75 MG/DL (7-18) 74 MG/DL (7-18) 71 MG/DL (7-18) 67 MG/DL (7- 18) Creatinine 1.51 MG/DL 1.53 MG/DL 1.55 MG/DL 1.51 MG/DL (0.60-1.30) (0.60-1.30) (0.60-1.30) (0.60-1.30) Estimat Glomerular Filtration 46 ML/MIN (>89) 45 ML/MIN (>89) 45 ML/MIN (>89) 46 ML/MIN (>89) Rate Random Glucose 175 MG/DL 253 MG/DL 259 MG/DL 223 MG/DL (74-106) (74-106) (74-106) (74-106) Calcium Level 8.3 MG/DL 8.1 MG/DL 8.2 MG/DL 8.5 MG/DL (8.5-10.1) (8.5-10.1) (8.5-10.1) (8.5-10.1) Magnesium Level 2.7 MG/DL 2.6 MG/DL 2.6 MG/DL (1.5-2.5) (1.5-2.5) (1.5-2.5) Test 09/22/16 09/22/16 09/22/16 09/22/16 07:22 12:35 14:05 18:51 Sodium Level 140 MEQ/L 141 MEQ/L 140 MEQ/L (136-145) (136-145) (136-145) Potassium Level 3.1 MEQ/L 3.5 MEQ/L 3.4 MEQ/L (3.5-5.1) (3.5-5.1) (3.5-5.1) Chloride Level 92 MEQ/L 94 MEQ/L 92 MEQ/L (98-107) (98-107) (98-107) Carbon Dioxide Level 40.0 MEQ/L 38.6 MEQ/L 37.5 MEQ/L (21.0-32.0) (21.0-32.0) (21.0-32.0) Anion Gap 8 MEQ/L (5-15) 8 MEQ/L (5-15) 11 MEQ/L (5-15) Blood Urea Nitrogen 69 MG/DL (7-18) 65 MG/DL (7-18) 64 MG/DL (7-18) Creatinine 1.50 MG/DL 1.48 MG/DL 1.56 MG/DL (0.60-1.30) (0.60-1.30) (0.60-1.30) Estimat Glomerular Filtration 46 ML/MIN (>89) 47 ML/MIN (>89) 44 ML/MIN (>89) Rate Random Glucose 229 MG/DL 299 MG/DL 380 MG/DL (74-106) (74-106) (74-106) Calcium Level 8.3 MG/DL 9.0 MG/DL 9.0 MG/DL (8.5-10.1) (8.5-10.1) (8.5-10.1) Magnesium Level 2.6 MG/DL 2.5 MG/DL 2.5 MG/DL (1.5-2.5) (1.5-2.5) (1.5-2.5) Procalcitonin 0.20 ng/mL (0.00-0.50) Test 09/23/16 09/23/16 09/23/16 09/23/16 00:53 04:18 08:45 08:59 Sodium Level 141 MEQ/L 142 MEQ/L 143 MEQ/L (136-145) (136-145) (136-145) Potassium Level 3.3 MEQ/L 2.9 MEQ/L 3.4 MEQ/L (3.5-5.1) (3.5-5.1) (3.5-5.1) Chloride Level 94 MEQ/L 93 MEQ/L 96 MEQ/L (98-107) (98-107) (98-107) Carbon Dioxide Level 36.3 MEQ/L 38.4 MEQ/L 38.1 MEQ/L (21.0-32.0) (21.0-32.0) (21.0-32.0) Anion Gap 11 MEQ/L (5-15) 11 MEQ/L (5-15) 9 MEQ/L (5-15) Blood Urea Nitrogen 65 MG/DL (7-18) 66 MG/DL (7-18) 65 MG/DL (7-18) Creatinine 1.60 MG/DL 1.63 MG/DL 1.63 MG/DL (0.60-1.30) (0.60-1.30) (0.60-1.30) Estimat Glomerular Filtration 43 ML/MIN (>89) 42 ML/MIN (>89) 42 ML/MIN (>89) Rate Random Glucose 400 MG/DL 403 MG/DL 359 MG/DL (74-106) (74-106) (74-106) Calcium Level 9.0 MG/DL 8.9 MG/DL 9.0 MG/DL (8.5-10.1) (8.5-10.1) (8.5-10.1) Magnesium Level 2.5 MG/DL 2.6 MG/DL 2.6 MG/DL (1.5-2.5) (1.5-2.5) (1.5-2.5) White Blood Count 7.7 TH/MM3 (4.0-11.0) Red Blood Count 3.45 MIL/MM3 (4.50-5.90) Hemoglobin 9.5 GM/DL (13.0-17.0) Hematocrit 29.2 % (39.0-51.0) Mean Corpuscular Volume 84.6 FL (80.0-100.0) Mean Corpuscular Hemoglobin 27.5 PG (27.0-34.0) Mean Corpuscular Hemoglobin 32.5 % Concent (32.0-36.0) Red Cell Distribution Width 16.7 % (11.6-17.2) Platelet Count 124 TH/MM3 (150-450) Mean Platelet Volume 10.3 FL (7.0-11.0) Neutrophils (%) (Auto) 78.5 % (16.0-70.0) Lymphocytes (%) (Auto) 10.9 % (9.0-44.0) Monocytes (%) (Auto) 9.7 % (0.0-8.0) Eosinophils (%) (Auto) 0.6 % (0.0-4.0) Basophils (%) (Auto) 0.3 % (0.0-2.0) Neutrophils # (Auto) 6.1 TH/MM3 (1.8-7.7) Lymphocytes # (Auto) 0.8 TH/MM3 (1.0-4.8) Monocytes # (Auto) 0.7 TH/MM3 (0-0.9) Eosinophils # (Auto) 0.0 TH/MM3 (0-0.4) Basophils # (Auto) 0.0 TH/MM3 (0-0.2) CBC Comment DIFF FINAL Differential Comment Urine Color YELLOW (YELLW/STRAW) Urine Turbidity CLEAR (CLEAR) Urine pH 6.5 (5.0-8.5) Urine Specific [place] 1.011 (1.002-1.035) Urine Protein TRACE mg/dL (NEG-TRACE) Urine Glucose (UA) NEG mg/dL (NEG) Urine Ketones NEG mg/dL (NEG) Urine Occult Blood MOD (NEG) Urine Nitrite NEG (NEG) Urine Bilirubin NEG (NEG) Urine Urobilinogen LESS THAN 2.0 MG/DL (LESS THAN 2.0) Urine Leukocyte Esterase NEG (NEG) Urine RBC 9 /hpf (0-3) Urine WBC 1 /hpf (0-5) Urine Hyaline Casts 5 /lpf (RARE) Urine Mucus FEW /lpf (OCC) Microscopic Urinalysis Comment CULT NOT INDICATED . Result Diagram: 09/23/16 0418 09/23/16 0859 Microbiology Microbiology Date/Time Procedure Status Source Growth 09/21/16 06:30 Stool Occult Blood ([facility]) - Final Complete Stool Stool HEMOCCULT POSITIVE 09/22/16 12:20 Gram Stain - Final Resulted Sputum Endotracheal 09/22/16 12:20 Sputum Culture - Preliminary Resulted Sputum Endotracheal IMMATURE GROWTH - REINCUBATE 09/22/16 12:30 Aerobic Blood Culture - Preliminary Resulted Blood Peripheral NO GROWTH IN 1 DAY 09/22/16 12:30 Anaerobic Blood Culture - Preliminary Resulted Blood Peripheral NO GROWTH IN 1 DAY 09/22/16 12:35 Aerobic Blood Culture - Preliminary Resulted Blood Peripheral NO GROWTH IN 1 DAY 09/22/16 12:35 Anaerobic Blood Culture - Preliminary Resulted Blood Peripheral NO GROWTH IN 1 DAY . Imaging Last Impressions Chest X-Ray 09/23/16 0600 Signed Impressions: Service Date/Time: September 03:17 - CONCLUSION: Decreasing bilateral pulmonary parenchymal opacity likely representing decreasing pulmonary edema. Jasson Cobos MD Upper Extremity Ultrasound 09/23/16 0000 Signed Impressions: Service Date/Time: September 08:54 - CONCLUSION: No DVT. Frank Og MD Lower Extremity Ultrasound 09/11/16 0000 Signed Impressions: Service Date/Time: Sunday, September 11, 2016 12:30 - CONCLUSION: No DVT is identified within either lower extremity. Frank Young MD CT Angiography 09/10/16 0000 Signed Impressions: Service Date/Time: Sunday, September 11, 2016 01:05 - CONCLUSION: No evidence of pulmonary embolism. Frank Hardin MD Abdomen Ultrasound 09/07/16 0000 Signed Impressions: Service Date/Time: Wednesday, September 07, 2016 16:45 - CONCLUSION: Heterogeneous hepatic echotexture consistent with chronic liver disease. Splenomegaly Mild to moderate ascites Mildly thickened gallbladder wall without evidence of gallstones. No evidence of hydronephrosis. Isidro Oliver MD Chest CT 09/05/16 0000 Signed Impressions: Service Date/Time: Monday, September 05, 2016 15:37 - CONCLUSION: 1. Cardiomegaly with diffuse ground glass densities and consolidation likely pulmonary edema and/or pneumonia. 2. Small bilateral pleural effusions. 3. Prominent lymphadenopathy in the mediastinum. Cameron Archer MD . Procedures * Intubation/mechanical ventilation . Assessment and Plan Disease Oriented Problem List: (1) Aortic stenosis (2) COPD exacerbation (3) Pneumonia (4) ARDS (adult respiratory distress syndrome) (5) Thrombocytopenia (6) Congestive heart failure (CHF) (7) PHILIPPE (acute kidney injury) (8) Diabetes (9) Hypertension (10) BPH (benign prostatic hyperplasia) (11) Hypothyroidism (12) PTSD (post-traumatic stress disorder) (13) Blood in stool (14) Normocytic anemia (15) Peripheral neuropathy Symptom Scale: (1) Pain 0-10 Scale: Unable to quantify Comment: Patient has long-standing pain syndromes. He has peripheral neuropathy involving both lower extremities. He also has osteoarthritis involving most joints but particularly bothersome in the hands and feet. Normally, he would not use opiate analgesics for these pains. Additional causes of pain here in the hospital might include orotracheal tube; orogastric tube; Ortega catheter; prolonged bedbound status; soft wrist restraints. Pain has mostly been controlled with a fentanyl drip. . (2) Dyspnea 0-10 Scale: Unable to quantify Comment: Patient has long-standing dyspnea on exertion. However, he has never been on home oxygen and has never used metered dose inhalers or nebulizers. Currently, dyspnea is being managed via the ventilator. . (3) Encephalopathy 0-10 Scale: Unable to quantify Comment: Patient was not wakeful, tracking, able to follow commands in spite of being off sedating medications for over 2 hours. . (4) Anxiety 0-10 Scale: Unable to quantify Comment: Attributed to the patient's PTSD. Per family, not adequately managed in spite of multiple psychoactive medications. . (5) Depression 0-10 Scale: Unable to quantify Comment: Attributed to the patient's PTSD. Per family, not adequately managed in spite of multiple psychoactive medications. . Pertinent Non-Medical Issues Psychosocial: Well supported by and his son and [id number] who live locally. Daughter in [place] Spiritual: Lapsed Pentecostalism. Legal: No advance directives. Spouse is legal proxy. Ethical issues impacting care: Currently incapacitated to make his own health care decisions. . Important Contacts * Criss Muse (spouse) [phone] . Prognosis The patient has underlying aortic stenosis, diabetes, and COPD. Though he was taking care of most of his ADLs, he was quite sedentary prior to this hospitalization. It is unclear if worsening aortic stenosis versus COPD exacerbation might have triggered this hospitalization. Regardless, patient is now intubated, mechanically ventilated, and in the medical intensive care unit. In spite of 11 days on mechanical ventilation he has not shown signs of significant improvement. He continues to spike fevers. He has an acute kidney injury. He remains quite encephalopathic. On top of this, family paints a picture of a gentleman who is unlikely to participate in rehabilitation or follow physician's orders which significantly diminishes his chances of returning to a home setting should he survive the hospitalization. Under the circumstances it would be reasonable if family opted not to go forward with tracheostomy and PEG tube placement if the critical care team is unable to wean him from the ventilator in the next few days. . Code Status: Alternative Code Plan == Code Status: ALTERNATE CODE -- No shock or chest compressions. == Decision making: Patient is currently incapacitated to make his own health care decisions. It is uncertain if/when he will regain capacity. is health care proxy. == Goals of medical treatment: Family have opted for alternate code as noted above. They are still unsure about trach/PEG if patient is unable to wean from the vent. The patient has been very sedentary and not very cooperative as a patient. They do not think he would do well with the rehab, diet compliance, etc necessary for a meaningful recovery. They are hoping he will wake up and be able to make his own decisions before trach becomes absolutely necessary. confides that she doesn't think his current state should be prolonged but she does not believe the patient's son agrees and she does not want there to be strife. == Pain: Patient has been controlled well with a fentanyl drip. No further recommendations at this time. == Dyspnea: Dyspnea currently being managed with ventilator settings. == Anxiety: Patient has long-standing severe anxiety attributed to PTSD from his [place] days. This may complicate vent weaning. At this point we are trying to get him to wake up. The fear is that once he wakes up but before we are able to wean him from the vent, he will become highly anxious and agitated. We may ultimately need to add a neuroleptic to his antidepressant and may even need to consider Precedex in such a case. == Depression: This is also probably related to his PTSD. He had been on sertraline and trazodone at home prior to admission. == I have spoken with Dr. Marie. Dr. Marie believes it makes sense to continue the current plan of care through the weekend. If the patient does not show signs that he will tolerate weaning at that point, Dr. Marie will likely recommend tracheostomy if family feels the patient would want ongoing aggressive care. If the patient does not wake up, he will also consider CT of the brain. == Palliative care will continue to follow to assist with symptom management and to further clarify goals of medical treatment as the clinical course evolves. . Attestation To help prompt me to consider important information that might be impacting today's encounter and assessment, information from prior notes written by myself or my colleagues may have been "brought forward" into today's note. My signature on this note, however, is an attestation that I personally performed the exam, history, and/or decision-making noted today, and, unless otherwise indicated, the interactions with patient, family, and staff as well as the review of records all occurred today. I also attest that the listed assessment and stated plan reflect my best clinical judgment today based on the combination of historical information, prior notes, and today's exam/ interactions. When time spent is documented, it refers only to time spent today by the signer, or if indicated, combined time spent today by collaborating physician/nurse practitioner. . Deon Hernandez MD Sep 23, 2016 15:26
--- NOTE | 2016-09-23 15:35 | HHI.CCPN ---
Subjective Remarks/Hospital Course The patient is a 71-year-old male with past medical history significant for COPD, aortic stenosis, hypertension and diabetes who presented to the emergency department with progressive shortness of breath and nonproductive cough for last 5 days. He was diagnosed and admitted to service on with [id number] SD, COPD exacerbation and probable pneumonia. He had a previous heart catheterization in 2014, was told at that time he needed to have aortic valve replacement. He was started on IV antibiotics with Rocephin and azithromycin and also was placed on IV steroids and DuoNeb breathing treatment for probable COPD exacerbation. All the cultures so far negative, also negative for influenza A and B, negative for Streptococcus and Legionella antigen. Cardiology was consulted, and echo showed moderate to severe aortic stenosis. Cardiothoracic surgery was also consulted and is following, plan for cardiac catheterization this Tuesday. A Halicat was called today as the patient was increasingly lethargic with increased dyspnea and hypoxia. He desaturated to the 70% when RN attempted to move him. Chest x-ray showed bilateral pulmonary edema worsening compared to admission. He was moved to the ICU and critical care medicine was consulted. I evaluated the patient in ICU. He is tachypneic on 100% nonrebreather. Examination revealed bilateral crackles. 60 mg of IV Lasix stat given and patient was ordered to be placed on BiPAP at 06/16. BNP was 658 SUBJECT 09/05/16: Patient did not tolerate BiPAP overnight. Currently remains on partial nonrebreather. Urine output more than 6 L in 24 hours. He developed atrial flutter with RVR, was placed on esmolol which I have changed to Cardizem. Chest x-ray shows interval improvement in my review 09/06/16: Remains on pNRB. sputum cx with strep pneumo. Urine out put diminishing. 1L bolus given with adequate response. Bilateral lung infiltrate. Discussed with Dr. Dudley. Will hold off cath until Reps failure/ALI improves and renal failure improves 09.07 Patient is on BIPAP 06/16 with FIO2 65%. Afebrile. 09/08 Patient is off BIPAP on Bumex drip 2mg/hr with UO 7.6L in 24 hrs. Afebrile feeling better. Renal function improving with Cr 1.52 from 2.07. 09/09 Patient is on partial rebreather with good sats. Afebrile. Renal function improving with Cr: 1.09 from 1.52. Remains on Bumex drip down 0.5mg/hr. 09/10 Patient was placed on Amio drip yesterday . Afebrile. Off Bumex drip. 09/11 No acute events overnight. Remains on Amio drip. On partial rebreather. CT chest last night showed no PE. 09/12 No acute events overnight. Remains on partial rebreather, off Amio drip. Afebrile. 09/13 Patient was intubated yesterday for resp distress and hypoxemia. Sedated with Diprivan and Fentanyl. Afebrile. On PRVC/AC RR 18, TV 550, PEEP: 10, FIO2 60%. 09/14 Patient is sedated with Diprivan and Fentanyl. Off Bumex drip, afebrile. Cr 1.53 today from 1.41. 09/15: Remains sedated. FiO2 70% with PEEP of 10. CXR unchanged. Creat 1.57. CXR remains same with bilateral infiltrates 09/16: Remains intubated sedated. FiO2 at 50% with a PEEP of 12. Chest x-ray unchanged to slightly improved. Urine output 2.4 L in 24 hours after starting Bumex 2 mg IV every 12 yesterday by nephrology. Creatinine stable to slightly improved 09/17 Patient is sedated with Diprivan/Fentanyl and intubated. On PRVC/AC RR 20 , TV 550, IT:0.9, PEEP:12, FIO2 50%. Afebrile. 09/18: very high peak pressures in the 40s despite conservative PRVC settings. still grossly volume overloaded. also spiked new fever to 102 today, off abx. minimal secretions. very critically ill. 09/19: peak pressures slightly improved. no significant improvement in overall function. still volume overloaded. no longer febrile. sputum gram stain rare GPCs, but this was the same as the last gram stain on 09/13 which did not grow any single bacterial strain. 09/20: still poor uop and net even fluid balance despite aggressive diuresis and persistent volume overload. may need to discuss tracheostomy in near future. no improvements in mechanical ventilation. 09/21: good diuresis with diamox/diuril/bumex yesterday with net -1L. resp status slightly better. mental status poor, but likely combination of hypoactive delirium and poor sedation metabolism. 09/22: Diet resting well urine output 6 L in 24 hours, creatinine remains stable at 1.5. Chest x-ray history unchanged with bilateral infiltrates/ARDS. Will reduce PEEP to 8 if tolerated 09/23: Urine output 7 L in 24 hours creatinine remains stable. Slight improvement in bilateral infiltrates. Continues to spike fever. Diflucan added by infectious diseases Objective Vital Signs Date Time Temp Pulse Resp B/P Pulse Ox O2 Delivery O2 Flow Rate FiO2 09/23/16 14:37 92 09/23/16 12:30 95 50 09/23/16 12:00 99.8 22 164/72 09/22/16 04:00 Mechanical Ventilator Intake and Output 09/22/16 09/22/16 09/23/16 08:00 16:00 00:00 Intake Total 929 ml 1161 ml 732 ml Output Total 1450 ml 2750 ml 3400 ml Balance -521 ml -1589 ml -2668 ml Result Diagram: 09/23/16 0418 09/23/16 1400 Other Results Microbiology Date/Time Procedure Status Source Growth 09/21/16 06:30 Stool Occult Blood (CASSIDY) - Final Complete Stool Stool HEMOCCULT POSITIVE Imaging Last Impressions Chest X-Ray 09/16/16 0600 Signed Impressions: Service Date/Time: September 05:38 - CONCLUSION: 1. Stable patchy, bilateral airspace disease with interstitial prominence. 2. Improving left sided effusion. 3. Stable position of life support tubes. Delfino Sylvester MD Lower Extremity Ultrasound 09/11/16 0000 Signed Impressions: Service Date/Time: Sunday, September 11, 2016 12:30 - CONCLUSION: No DVT is identified within either lower extremity. Frank Young MD CT Angiography 09/10/16 0000 Signed Impressions: Service Date/Time: Sunday, September 11, 2016 01:05 - CONCLUSION: No evidence of pulmonary embolism. Frank Hardin MD Abdomen Ultrasound 09/07/16 0000 Signed Impressions: Service Date/Time: Wednesday, September 07, 2016 16:45 - CONCLUSION: Heterogeneous hepatic echotexture consistent with chronic liver disease. Splenomegaly Mild to moderate ascites Mildly thickened gallbladder wall without evidence of gallstones. No evidence of hydronephrosis. Isidro Oliver MD Upper Extremity Ultrasound 09/06/16 0000 Signed Impressions: Service Date/Time: Tuesday, September 06, 2016 20:43 - CONCLUSION: No evidence of DVT. Isidro Oliver MD Chest CT 09/05/16 0000 Signed Impressions: Service Date/Time: Monday, September 05, 2016 15:37 - CONCLUSION: 1. Cardiomegaly with diffuse ground glass densities and consolidation likely pulmonary edema and/or pneumonia. 2. Small bilateral pleural effusions. 3. Prominent lymphadenopathy in the mediastinum. Cameron Archer MD Objective Remarks Gen: 71-year-old male lying in bed off sedation, encephalopathic Head: Normocephalic. Atraumatic. EENT: Pupils equal round and reactive to light. Cardiovascular: S1-S2 normal. Systolic murmur heard in the aortic area Respiratory: B/l equal air entry with coarse BS. Basilar crackles present Abdomen: Soft, nontender, nondistended. No peritoneal signs. Musculoskeletal: No gross deformities. No edema. Skin: No obvious rashes or erythema. Neuro: Partially open size off sedation. Withdraws extremities to pain. Moves extremities spontaneously on sedation lightening. Does not follow commands. Urinary Catheter: Yes Assessment to: Continue Date of Insertion: Sep 23, 2016 A/P Assessment and Plan NEURO: -Monitor neuro status -On sedation hold. Will DC Diprivan and Fentanyl. Start Precedex to facilitate vent weaning -Ct of head if no improving RESP: Acute hypoxemic respiratory failure ARDS Pneumococcal pneumonia COPD exacerbation -PRVC. will continue to wean as tolerated. Tolerating CPAP 04/17 -Continue with vent support keep sat >90% -Bronchodilators. -3/3 CTA chest - no PE -Continues to be volume overloaded, however pulmonary edema predominantly is noncardiogenic secondary to ARDS -CXR shows interval improvement CV: Severe aortic stenosis CHF NSTEMI -Monitor HR and BP keep MAP>65mmHg -Continue aspirin, Coreg 6.25mg BID, -Hold Hydralazine 50mg Q8 given borderline pressures. -Echo showed EF 50-55%, mod-severe -Cardiothoracic surgery and cardiology Dr. Dudley is following -[facility] on hold due to resp failure and renal failure- Dr. Minor. GI: -Elevated LFT's..trending down -Hypernatremia- resolved. -On Glucerna 1.5@45ml/hr. -Protonix for GI prophylaxis -Monitor LFT's ( trending down) -US abdomen: Chronic liver disease. Splenomegaly Mild to moderate ascites Mildly thickened gallbladder wall without evidence of gallstones. No evidence of hydronephrosis. -hypernatremia resolved. holding free water. : Acute kidney injury. Hyponatremia.. resolved Volume overload -Monitor renal function, I/O's, avoid nephrotoxins. -Renal- Dr. Roa. Renal US: No hydronephrosis -Bumex infusion, 2mg/hr. -Continue daily diuril. -Completed diamox 500mg iv q8h x 3 doses for contraction alkalosis -daily BMP ID: Severe Sepsis Pneumococcal pneumonia Fever -Teflaro IV, Levaquin oral per ID. Diflucan added today for persistent fever -Sputum culture positive for strep pneumo. Influenza negative -new cultures 09/18 NGTD. still holding off on abx. HEME: -Monitor CBC, CMP, coags. Hep PLT ab positive, TIGIST negative, Heme is following ENDO: Type 2 diabetes Hypothyroidism -Better glycemic control. continue high scale SSI, q4h. continue Levemir 20u q12h. -Prednisone taper -Continue Synthroid 50 mcg daily. TSH: 0.373 PROPH: -Bilateral lower extremity SCDs. Protonix for GI prophylaxis. SQH. LINES: -Utilize peripheral IVs, OVERALL IMPRESSION: 71yM with severe acute hypoxic and hypercarbic respiratory failure with little to no improvement after a lengthy mechanical ventilation. volume overload persists. Aortic stenosis makes hemodynamics and additional cardiovascular optimization difficult and the combination of these organ dysfunctions makes him critically ill at this point. This patient remains critically ill with one or more organ systems which are or may become a threat to life. I have spent in excess of 33 minutes discontinuously in the care and management of this patient. This time is exclusive of procedures, and includes, but is not limited to, evaluation of the patient, review of the medical record, discussions with family, consultants, nursing staff, or respiratory therapy, and documentation in the medical record. Minnie Marie MD Sep 23, 2016 15:35
[2016-09-23] MEDS ORDERED: fentaNYL CITRATE 250 MCG/5 ML AMP IV PUSH PRN (16:00)
--- NOTE | 2016-09-23 17:55 | RADRPT ---
EXAM DATE/TIME: 09/23/2016 17:38 [facility] COMPARISON: No previous studies available for comparison. INDICATIONS : Altered mental status. RADIATION DOSE: 43.36 CTDIvol (mGy) MEDICAL HISTORY : Hypertension. Chronic obstructive pulmonary disease. Diabetes mellitus type 2. SURGICAL HISTORY : None. ENCOUNTER: Initial ACUITY: 1 month PAIN SCALE: Non-responsive LOCATION: cranial TECHNIQUE: Multiple contiguous axial images were obtained of the head. Using automated exposure control and adj ustment of the mA and/or kV according to patient size, radiation dose was kept as low as reasonably a chievable to obtain optimal diagnostic quality images. FINDINGS: CEREBRUM: Dense calcification is identified in the left basal ganglia involving the head of the caudate nucleus and adjacent putamen and globus pallidus. There are no findings characteristic of an acute infarct or hemorrhage. There is no evidence of mass effect or edema. POSTERIOR FOSSA: The cerebellum and brainstem are intact. The 4th ventricle is midline. The cerebellopontine angle i s unremarkable. EXTRACRANIAL: The visualized portion of the orbits is intact. SKULL: The calvaria is intact. No evidence of skull fracture. CONCLUSION: Dense left basal ganglionic calcification. No evidence of acute infarct, hemorrhage, mass or edema. Isidro Oliver MD on September 23, 2016 at 17:49 Board Certified Radiologist. This report was verified electronically.
[2016-09-23] MEDS: INSULIN ASPART SUPPLEMENTAL SCALE SQ SCH ×2 (18:00→19:53)
[2016-09-23 19:55] LABS: BICARBONATE 39.2 MEQ/L (21.0-32.0); MAGNESIUM 2.5 MG/DL (1.5-2.5); POTASSIUM 3.5 MEQ/L (3.5-5.1)
[2016-09-23] MEDS: PRAVASTATIN SOD 40 MG TAB PO SCH (20:14)
[2016-09-23] MEDS: traZODone HCL 100 MG TAB PO SCH (20:14)
[2016-09-23 20:15] LABS: CREATINE KINASE 58 U/L (39-308)
[2016-09-23] MEDS: DEXMEDETOMIDINE INJ 50 ML IV SCH (20:15)
[2016-09-23] MEDS ORDERED: ACETAMINOPHEN 1000 MG/100 ML VIAL IV ONE (21:00)
[2016-09-24] VITALS (8 sets, daily range): BP systolic 109–162; BP diastolic 57–77; PULSE 113–119; RESP 15–25; TEMP 102.9–103.6; O2SAT 93–98
[2016-09-24] MEDS: INSULIN ASPART SUPPLEMENTAL SCALE SQ SCH ×3 (01:34→08:15)
[2016-09-24] MEDS: DEXMEDETOMIDINE INJ 50 ML IV SCH ×2 (01:34→08:13)
[2016-09-24] MEDS: CEFTAROLINE INJ 600 MG in SODIUM CHLORIDE 0.9% INJ 100 ML IV SCH (01:34)
[2016-09-24 02:04] LABS: BICARBONATE 38.2 MEQ/L (21.0-32.0); MAGNESIUM 2.7 MG/DL (1.5-2.5); POTASSIUM 4.3 MEQ/L (3.5-5.1)
[2016-09-24] MEDS: ACETAMINOPHEN 325 MG TAB PO PRN (05:06)
[2016-09-24] MEDS: PANTOPRAZOLE SODIUM 40 MG VIAL IV PUSH SCH (05:06)
[2016-09-24] MEDS: LEVOTHYROXINE SODIUM 50 MCG TAB PO SCH (05:07)
[2016-09-24 05:19] LABS: HEMATOCRIT 35.7 % (39.0-51.0); MEAN CORPUSCULAR HEMOGLOBIN 27.6 PG (27.0-34.0); MEAN CORPUSCULAR HGB CONC 32.1 % (32.0-36.0); PLATELET COUNT 215 TH/MM3 (150-450); RED BLOOD COUNT 4.15 MIL/MM3 (4.50-5.90); RED CELL DISTRIBUTION WIDTH 17.3 % (11.6-17.2); REVIEW FLAG FINAL; WHITE BLOOD COUNT 12.1 TH/MM3 (4.0-11.0)
[2016-09-24] MEDS: BUMETANIDE INJ 100 ML IV SCH (06:50)
[2016-09-24] MEDS: SERTRALINE HCL 50 MG TAB PO SCH (08:13)
[2016-09-24] MEDS: FERROUS SULFATE 300 MG /5ML UDC PO SCH (08:14)
[2016-09-24] MEDS: PRIMIDONE 50 MG TAB PO SCH (08:14)
[2016-09-24] MEDS: CARVEDILOL 6.25 MG TAB PO SCH (08:14)
[2016-09-24] MEDS: HEPARIN SODIUM - SQ 10,000 UNITS/ML VIAL SQ SCH (08:14)
[2016-09-24] MEDS: DOCUSATE SODIUM 50 MG/SENNA 8.6 MG TAB PO SCH (08:14)
[2016-09-24] MEDS: ASPIRIN 81 MG CHEW TAB PO SCH (08:14)
[2016-09-24] MEDS: INSULIN DETEMIR 100 UNITS/ML VIAL SQ SCH (08:17)
--- NOTE | 2016-09-24 08:18 | HHI.FPPN ---
Subjective Remarks Patient was seen and examined this morning. Per overnight nurse, patient has been on Precedex since yesterday per the family's request. Fentanyl was discontinued. He continues to be sedated and nonresponsive. He has been febrile to 103.8F max. CT head and EEG were ordered yesterday. Objective Vitals Vital Signs Date Time Temp Pulse Resp B/P Pulse Ox O2 Delivery O2 Flow Rate FiO2 09/24/16 06:00 115 09/24/16 04:00 117 09/24/16 04:00 103.6 117 24 162/67 94 09/24/16 04:00 45 09/24/16 02:00 118 09/24/16 00:27 94 45 09/24/16 00:00 117 09/24/16 00:00 103.4 113 25 156/77 93 09/24/16 00:00 45 09/23/16 22:00 113 09/23/16 21:00 94 45 09/23/16 20:00 50 09/23/16 20:00 119 09/23/16 20:00 103.8 121 24 172/73 93 09/23/16 18:07 98 09/23/16 18:00 111 09/23/16 16:47 94 45 09/23/16 16:00 50 09/23/16 16:00 100.2 116 22 163/71 94 09/23/16 14:37 92 09/23/16 12:30 95 50 09/23/16 12:30 45 09/23/16 12:00 88 09/23/16 12:00 50 09/23/16 12:00 99.8 96 22 164/72 94 09/23/16 10:15 95 50 09/23/16 10:00 82 I/O 09/23/16 09/23/16 09/23/16 09/24/16 09/24/16 09/24/16 07:00 15:00 23:00 07:00 15:00 23:00 Intake Total 622 ml 752 ml 873 ml 701 ml Output Total 800 ml 1800 ml 2650 ml 600 ml Balance -178 ml -1048 ml -1777 ml 101 ml IV Total 262 ml 372 ml 333 ml 345 ml Tube Feeding 300 ml 280 ml 380 ml 296 ml Tube Irrigant 60 ml 100 ml 160 ml 60 ml Output Urine Total 800 ml 1800 ml 2650 ml 600 ml # Bowel Movements 1 1 0 1 Result Diagram: 09/24/16 0431 09/24/16 0431 Imaging Last Impressions Chest X-Ray 09/23/16 0600 Signed Impressions: Service Date/Time: September 03:17 - CONCLUSION: Decreasing bilateral pulmonary parenchymal opacity likely representing decreasing pulmonary edema. Jasson Cobos MD Upper Extremity Ultrasound 09/23/16 0000 Signed Impressions: Service Date/Time: September 08:54 - CONCLUSION: No DVT. Frank Og MD Head CT 09/23/16 0000 Signed Impressions: Service Date/Time: September 17:38 - CONCLUSION: Dense left basal ganglionic calcification. No evidence of acute infarct, hemorrhage, mass or edema. Isidro Oliver MD Lower Extremity Ultrasound 09/11/16 0000 Signed Impressions: Service Date/Time: Sunday, September 11, 2016 12:30 - CONCLUSION: No DVT is identified within either lower extremity. Frank Young MD CT Angiography 09/10/16 0000 Signed Impressions: Service Date/Time: Sunday, September 11, 2016 01:05 - CONCLUSION: No evidence of pulmonary embolism. Frank Hardin MD Abdomen Ultrasound 09/07/16 0000 Signed Impressions: Service Date/Time: Wednesday, September 07, 2016 16:45 - CONCLUSION: Heterogeneous hepatic echotexture consistent with chronic liver disease. Splenomegaly Mild to moderate ascites Mildly thickened gallbladder wall without evidence of gallstones. No evidence of hydronephrosis. Isidro Oliver MD Chest CT 09/05/16 0000 Signed Impressions: Service Date/Time: Monday, September 05, 2016 15:37 - CONCLUSION: 1. Cardiomegaly with diffuse ground glass densities and consolidation likely pulmonary edema and/or pneumonia. 2. Small bilateral pleural effusions. 3. Prominent lymphadenopathy in the mediastinum. Cameron Archer MD Objective Remarks Gen.: Lying in bed, intubated. Currently on sedation holiday. Head: Normocephalic. Atraumatic. EENT: Pupils equal round and reactive to light. Nose without drainage. Airway intact. Cardiovascular: Regular rate and rhythm. Systolic ejection murmur along left sternal border. Respiratory: CTAB bilaterally. Abdomen: Soft, nontender, nondistended. No peritoneal signs. Musculoskeletal: No gross deformities. Edema noted. Skin: No obvious rashes or erythema. Neuro: Intubated. On fentanyl. Not tracking or responding to commands. : [place] in place draining dark urine Extremities: Compression boots on bilaterally Medications and IVs Inpatient Medications Acetaminophen (Ofirmev Inj) 1,000 mg NOW ONCE IV Last administered on 20:15; Start 09/23/16 at 21:00; Stop 09/23/16 at 21:01; Status DC Acetaminophen 650 mg 650 mg Q6H PRN PO FEVER Last administered on 09/24/16 05: 06; Start 09/22/16 at 17:45 Acetazolamide Sodium (Diamox Inj) 500 mg Q8H IV PUSH Last administered on 09:18; Start 09/21/16 at 17:00; Stop 09/22/16 at 09:01; Status DC Albumin Human (Albumin 25% Inj) 12.5 gm Q8H IV Last administered on 09/21/16 03:15; Start 09/20/16 at 10:45; Stop 09/21/16 at 02:46; Status DC Albumin Human 12.5 gm 12.5 gm Q8H IV Last administered on 09/22/16 06:06; Start 09/21/16 at 14:00; Stop 09/22/16 at 06:01; Status DC Albuterol Sulfate (Albuterol Neb) 2.5 mg Q2HR NEB PRN NEB SOB/WHEEZING Last administered on 09/22/16 18:13; Start 09/01/16 at 14:00 Albuterol/ Ipratropium (Duoneb Neb) 1 ampule Q6HR NEB NEB Last administered on 09/16/16 09:02; Start 09/12/16 at 12:45; Stop 09/16/16 at 12:45; Status DC Albuterol/ Ipratropium 1 ampule 1 ampule Q15M INH Last administered on 12:39; Start 08/31/16 at 11:15; Stop 08/31/16 at 11:31; Status DC Alprazolam (Xanax) 1 mg ONCE ONCE PO Last administered on 09/05/16 01:18; Start 09/05/16 at 01:15; Stop 09/05/16 at 01:16; Status DC Amiodarone HCl 150 mg/Dextrose 100 ml @ 100 mls/hr ONCE ONCE IV Last administered on 09/09/16 12:52; Start 09/09/16 at 11:00; Stop 09/09/16 at 11:59; Status DC Amiodarone HCl/ Dextrose (Cordarone Inj/ D5W (Tumacacori) Inj) 250 ml @ 0 mls/hr CONTINUOUS IV Last administered on 09/10/16 17:20; Start 09/09/16 at 12:00; Stop 09/11/16 at 15:55; Status DC Amlodipine Besylate 10 mg 10 mg DAILY PO Last administered on 09/06/16 07:47; Start 09/02/16 at 09:00; Stop 09/06/16 at 08:12; Status DC Aspirin (Aspirin Chew) 81 mg DAILY PO Last administered on 09/23/16 08:45; Start 09/12/16 at 09:00 Aspirin (Aspirin) 325 mg DAILY PO Last administered on 09/11/16 09:20; Start at 09:00; Stop 09/11/16 at 11:34; Status DC Azithromycin 500 mg 500 mg Q24H PO Last administered on 09/06/16 11:36; Start 09/01/16 at 12:00; Stop 09/07/16 at 10:44; Status DC Azithromycin/ Sodium Chloride (Zithromax Inj/ NS 250 ml Inj) 250 ml @ 250 mls/ hr ONCE STAT IV Last administered on 08/31/16 12:21; Start 08/31/16 at 12:11 ; Stop 08/31/16 at 13:10; Status DC Bumetanide (Bumex Inj) 100 ml @ 8 mls/hr CONTINUOUS IV Last administered on 06:50; Start 09/21/16 at 14:00 Bumetanide 2 mg 2 mg NOW ONCE IV PUSH Last administered on 09/13/16 08:26; Start 09/13/16 at 08:15; Stop 09/13/16 at 08:16; Status DC Buspirone HCl (Buspar) 10 mg BID PO Last administered on 09/12/16 08:33; Start 08/31/16 at 21:00; Status Hold Carvedilol (Coreg) 6.25 mg Q12HR PO Last administered on 09/05/16 20:52; Start 09/04/16 at 21:00; Stop 09/06/16 at 08:13; Status DC Carvedilol 6.25 mg 6.25 mg Q12HR PO Last administered on 09/23/16 20:14; Start 09/06/16 at 09:00 Cefepime HCl 2000 mg/Sodium Chloride 100 ml @ 200 mls/hr ONCE STAT IV Last administered on 08/31/16 13:36; Start 08/31/16 at 12:11; Stop 08/31/16 at 12:40 ; Status DC Ceftaroline Fosamil/Sodium Chloride (Teflaro Inj/NS Inj) 100 ml @ 100 mls/hr Q12H IV Last administered on 09/24/16 01:34; Start 09/22/16 at 13:00 Ceftriaxone Sodium 2000 mg/ Sodium Chloride 100 ml @ 200 mls/hr Q24H IV Last administered on 09/06/16 20:10; Start 09/06/16 at 18:00; Stop 09/07/16 at 10:44 ; Status DC Ceftriaxone Sodium/Sodium Chloride (Rocephin Inj/NS Inj) 100 ml @ 200 mls/hr Q24H IV Last administered on 09/03/16 09:55; Start 09/01/16 at 09:00; Stop at 10:05; Status DC Chlorhexidine Gluconate (Chlorhexidine 2% Cloth) 3 pack DAILY@04 TOP Last administered on 09/09/16 04:00; Start 09/05/16 at 04:00; Stop 09/09/16 at 04:01; Status DC Chlorhexidine Gluconate 15 ml 15 ml BID@08,20 MT Last administered on 21:53; Start 09/06/16 at 20:00; Stop 09/20/16 at 11:12; Status DC Chlorhexidine Gluconate 3 pack 3 pack UNSCH PRN TOP HYGIENIC CARE; Start at 20:00; Stop 09/09/16 at 19:51; Status DC Chlorothiazide Sodium (Diuril Inj) 500 mg ONCE ONCE IV ; Start 09/20/16 at 10: 45; Stop 09/20/16 at 11:09; Status DC Chlorothiazide Sodium 250 mg 250 mg ONCE ONCE IV Last administered on 14:24; Start 09/21/16 at 12:00; Stop 09/21/16 at 12:01; Status DC Dexmedetomidine HCl (Precedex Inj) 50 ml @ 0 mls/hr TITRATE IV Last administered on 09/24/16 01:34; Start 09/23/16 at 16:00 Dextrose (D50w (Vial) Inj) 25 ml UNSCH PRN IV PUSH HYPOGLYCEMIA-SEE COMMENTS; Start 09/20/16 at 10:45; Stop 09/23/16 at 15:29; Status DC Diltiazem HCl 15 mg 15 mg ONCE ONCE IVP Last administered on 09/05/16 08:27; Start 09/05/16 at 07:45; Stop 09/05/16 at 07:46; Status DC Diltiazem HCl/ Sodium Chloride (Cardizem Inj/NS Inj) 125 ml @ 0 mls/hr TITRATE IV Last administered on 09/06/16 05:28; Start 09/05/16 at 08:00; Stop at 08:23; Status DC Esmolol HCl (Brevibloc Bolus Inj) 45 mg BOLUS ONCE IV PUSH Last administered on 09/04/16 22:50; Start 09/04/16 at 22:30; Stop 09/04/16 at 22:31; Status DC Esmolol HCl/ Sodium Chloride (Brevibloc Drip Inj Premix) 250 ml @ 0 mls/hr CONTINUOUS WT BASED IV Last administered on 09/05/16 07:32; Start 09/04/16 at 22:30; Stop 09/05/16 at 07:41; Status DC Fentanyl Citrate (fentaNYL DRIP) 250 ml @ 0 mls/hr TITRATE IV Last administered on 09/23/16 02:04; Start 09/12/16 at 15:00; Stop 09/23/16 at 15:56 ; Status DC Fentanyl Citrate (fentaNYL INJ) 50 mcg Q3H PRN IV PUSH pain, anxiety; Start at 16:00 Ferrous Sulfate (Ferrous Sulfate Liq) 300 mg BID PO Last administered on 20:13; Start 09/12/16 at 21:00 Ferrous Sulfate (Ferrous Sulfate) 325 mg BID PO Last administered on 09/12/16 08:33; Start 09/06/16 at 09:00; Stop 09/12/16 at 19:35; Status DC Fluconazole/ Sodium Chloride (Diflucan 100 Mg Premix Bag) 50 ml @ 50 mls/hr Q24H IV Last administered on 09/23/16 08:46; Start 09/23/16 at 09:00 Furosemide (Lasix Inj) 60 mg ONCE ONCE IV PUSH Last administered on 09/04/16 10:00; Start 09/04/16 at 10:00; Stop 09/04/16 at 10:06; Status DC Furosemide (Lasix) 20 mg ONCE ONCE PO Last administered on 09/11/16 17:41; Start 09/11/16 at 16:00; Stop 09/11/16 at 16:19; Status DC Furosemide 20 mg 20 mg BID@09,18 IV PUSH Last administered on 09/12/16 18:29; Start 09/12/16 at 18:00; Stop 09/13/16 at 07:52; Status DC Furosemide 40 mg 40 mg BID@09,18 IV PUSH Last administered on 09/05/16 08:28; Start 09/04/16 at 18:00; Stop 09/05/16 at 16:15; Status DC Glucagon (Glucagon Inj) 1 mg UNSCH PRN OTHER HYPOGLYCEMIA-SEE COMMENTS; Start 09/14/16 at 08:00; Stop 09/20/16 at 11:07; Status DC Haloperidol Lactate (Haldol Inj) 2 mg ONCE ONCE IM ; Start 09/01/16 at 01:45; Stop 09/01/16 at 01:50; Status DC Haloperidol Lactate 2 mg 2 mg STAT ONCE IV Last administered on 09/12/16 11:32 ; Start 09/12/16 at 11:30; Stop 09/12/16 at 11:31; Status DC Heparin Sodium (Porcine) (Heparin Inj) 5,000 units Q12HR SQ Last administered on 09/23/16 20:14; Start 09/20/16 at 21:00 Heparin Sodium (Porcine) 2500 units 2,500 units UNSCH PRN IV APTT 25 TO 39 Last administered on 09/01/16 01:58; Start 08/31/16 at 19:00; Stop 09/01/16 at 07:31; Status DC Heparin Sodium/ Dextrose (Heparin-D5W Inj) 250 ml @ 0 mls/hr TITRATE IV Last administered on 08/31/16 13:34; Start 08/31/16 at 13:00; Stop 09/01/16 at 07:31 ; Status DC Hydralazine HCl (Apresoline Inj) 10 mg Q6H PRN IV SBP> OR = 160, DBP> OR = 100 Last administered on 09/09/16 04:10; Start 09/09/16 at 03:15 Hydralazine HCl (Apresoline) 50 mg Q8HR PO Last administered on 09/17/16 06:21 ; Start 09/12/16 at 08:00; Status Hold Insulin Aspart (NovoLOG SUPPLEMENTAL SCALE) 1 Q6H SQ Last administered on 06:00; Start 09/07/16 at 12:00; Stop 09/11/16 at 07:56; Status DC Insulin Aspart 1 1 Q4H SQ Last administered on 09/24/16 05:06; Start 09/23/16 at 16:00 Insulin Detemir (Levemir Inj) 35 units Q12HR SQ Last administered on 09/23/16 19:53; Start 09/23/16 at 21:00 Insulin Human Regular (NovoLIN R SUPPLEMENTAL SCALE) 1 Q4HR SQ Last administered on 09/23/16 12:00; Start 09/20/16 at 12:00; Stop 09/23/16 at 15:29 ; Status DC IV Flush (NS Flush) 2 ml UNSCH PRN IVF FLUSH AFTER USING IV ACCESS Last administered on 09/20/16 20:31; Start 08/31/16 at 11:15 IV Flush 2 ml 2 ml UNSCH PRN IVF FLUSH AFTER USING IV ACCESS; Start 09/09/16 at 10:45 Levofloxacin/ Dextrose 100 ml @ 100 mls/hr Q24H IV Last administered on 12:00; Start 09/22/16 at 12:00 Levothyroxine Sodium (Synthroid) 50 mcg DAILY@06 PO Last administered on 05:07; Start 09/01/16 at 06:00 Lorazepam (Ativan Inj) 0.25 mg Q6H PRN IV PUSH ANXIETY Last administered on 09/12 04:53; Start 09/06/16 at 17:45; Stop 09/18/16 at 16:48; Status DC Losartan Potassium (Cozaar) 50 mg DAILY PO ; Start 09/01/16 at 09:00; Stop 09/02 at 08:01; Status DC Magnesium Oxide 800 mg 800 mg UNSCH PRN PO For Magnesium 1.2 - 1.6 mg/dL; Start 09/21/16 at 13:15 Magnesium Sulfate 2 gm/Sodium Chloride 100 ml @ 50 mls/hr UNSCH PRN IV For Magnesium 1.2 - 1.6 mg/dL; Start 09/21/16 at 13:15 Magnesium Sulfate 4 gm/Sodium Chloride 100 ml @ 50 mls/hr UNSCH PRN IV For Magnesium 0.9 - 1.1 mg/dL; Start 09/21/16 at 13:15 Methylprednisolone Sodium Succinate (SoluMEDROL INJ) 40 mg DAILY IV Last administered on 09/20/16 09:15; Start 09/14/16 at 09:00; Stop 09/20/16 at 11:31 ; Status DC Methylprednisolone Sodium Succinate 60 mg 60 mg Q8H IV Last administered on 09/08 00:56; Start 09/03/16 at 17:00; Stop 09/08/16 at 08:21; Status DC Metronidazole (Flagyl 500 Mg Inj) 100 ml @ 100 mls/hr Q8H IV Last administered on 09/07/16 09:18; Start 09/06/16 at 18:00; Stop 09/07/16 at 10:46 ; Status DC Miscellaneous Information Patient in critical care unit? Ass... [id number] Last administered on 09/04/16 20:00; Start 09/04/16 at 20:00 Morphine Sulfate 2 mg 2 mg Q4H PRN IV PAIN 1 TO 10 Last administered on 16:06; Start 09/05/16 at 11:30 Nitroglycerin (Nitroglycerin 2% Oint) 0.5 inch Q6H PRN TOPICAL CHEST PAIN; Start 08/31/16 at 15:00; Stop 09/01/16 at 07:32; Status DC Ondansetron HCl (Zofran Inj) 4 mg Q6H PRN IV NAUSEA OR VOMITING; Start at 13:45 Pantoprazole Sodium (Protonix Inj) 40 mg Q12H IV PUSH Last administered on 09/24 05:06; Start 09/13/16 at 18:00 Pharmacy Profile Note 0 ml @ 0 mls/hr UNSCH OTHER ; Start 09/03/16 at 10:15; Stop 09/04/16 at 13:11; Status DC Piperacillin Sod/ Tazobactam Sod 50 ml @ 100 mls/hr Q6H IV Last administered on 09/06/16 11:40; Start 09/06/16 at 12:00; Stop 09/06/16 at 16:50; Status DC Piperacillin Sod/ Tazobactam Sod (Zosyn 3.375 Gm Premix) 50 ml @ 100 mls/hr Q6H IV Last administered on 09/04/16 05:57; Start 09/03/16 at 11:00; Stop at 09:31; Status DC Piperacillin Sod/ Tazobactam Sod (Zosyn 4.5 Gm Premix) 100 ml @ 200 mls/hr Q6H IV Last administered on 09/06/16 05:28; Start 09/04/16 at 12:00; Stop at 08:40; Status DC Potassium Phosphate (K-Phos) 2,000 mg Q4H PRN PO For Phosphorus < 2.5 mg/dL; Start 09/21/16 at 13:15 Potassium Phosphate 2000 mg 2,000 mg UNSCH PRN PO/TUBE SEE LABEL COMMENTS; Start 09/21/16 at 13:15 Potassium Phosphate 30 mmol/ Sodium Chloride 260 ml @ 42 mls/hr UNSCH PRN IV SEE LABEL COMMENTS; Start 09/21/16 at 13:15 Potassium Chloride (KCl 40 Meq Premix Inj) 100 ml @ 25 mls/hr UNSCH PRN IV For Potassium 3.3 - 3.5 mEq/L; Start 09/21/16 at 13:15 Potassium Chloride (KCl) 20 meq DAILY PO Last administered on 09/12/16 08:33; Start 09/10/16 at 09:00; Stop 09/13/16 at 07:52; Status DC Pravastatin Sodium (Pravachol) 40 mg HS PO Last administered on 09/23/16 20:14 ; Start 09/22/16 at 21:00 Prednisone (Deltasone) 50 mg DAILY PO ; Start 09/02/16 at 09:00; Stop 09/02/16 at 09:00; Status DC Prednisone (predniSONE LIQ) 5 mg Taper DAILY PO Last administered on 09/23/16 08:45; Start 09/21/16 at 09:00; Stop 09/23/16 at 08:59; Status DC Pregabalin (Lyrica) 150 mg BID PO Last administered on 09/12/16 08:34; Start at 21:00; Status Hold Primidone (Mysoline) 100 mg TID PO Last administered on 09/23/16 18:00; Start 08/31/16 at 18:00 Propofol (Diprivan 1000 Mg/100ml Inj) 100 ml @ 0 mls/hr TITRATE IV Last administered on 09/22/16 06:18; Start 09/12/16 at 12:45; Stop 09/23/16 at 15:55 ; Status DC Senna/Docusate Sodium (Shantelle-Colace) 2 tab DAILY PO Last administered on 09:00; Start 09/06/16 at 17:45 Sertraline HCl (Zoloft) 50 mg DAILY PO Last administered on 09/23/16 08:44; Start 09/13/16 at 09:00 Sodium Chloride (1/2 NS 1000 ml Inj) 1,000 ml @ 50 mls/hr Q20H IV Last administered on 09/13/16 12:40; Start 09/13/16 at 12:00; Stop 09/14/16 at 07:54; Status DC Sodium Chloride (NS 1000 ml Inj) 1,000 ml @ 50 mls/hr Q20H IV Last administered on 09/07/16 01:32; Start 09/06/16 at 07:15; Stop 09/07/16 at 07:14 ; Status DC Sodium Phosphate/ Sodium Chloride (Sodium Phosphate Inj/NS 250 ml Inj) 250 ml @ 42 mls/hr UNSCH PRN IV For Phosphorus < 2.5 mg/dL; Start 09/21/16 at 13:15 Trazodone HCl (Desyrel) 100 mg HS PO Last administered on 09/23/16 20:14; Start 08/31/16 at 21:00 Vancomycin HCl 2000 mg/Sodium Chloride 520 ml @ 250 mls/hr ONCE ONCE IV Last administered on 09/03/16 12:00; Start 09/03/16 at 12:00; Stop 09/03/16 at 14:04 ; Status DC Vancomycin HCl/ Sodium Chloride (Vancomycin Inj/ NS 250 ml Inj) 250 ml @ 250 mls/hr Q12H IV Last administered on 09/04/16 11:46; Start 09/04/16 at 00:00; Stop 09/04/16 at 13:11; Status DC Vancomycin HCl/ Sodium Chloride (Vancomycin Inj/ NS 500 ml Inj) 515 ml @ 250 mls/hr ONCE ONCE IV Last administered on 09/06/16 16:04; Start 09/06/16 at 16 :00; Stop 09/07/16 at 10:44; Status DC Water (Free Water) 300 ml Q4HR G-TUBE Last administered on 09/21/16 12:00; Start 09/20/16 at 12:00; Status Hold Urinary Catheter: Yes Assessment to: Continue Date of Insertion: Sep 23, 2016 Vascular Central Line Catheter: Yes A/P Assessment and Plan 71-year-old male who presented with a 5-day history of shortness of breath and nonproductive cough. ACS rule out positive for NSTEMI. Patient has a history of COPD and was admitted with sepsis with cardiology consultation for NSTEMI. Developed respiratory distress on 09/04 and was transferred to the ICU with critical care consult. Tolerated BiPAP vs nonrebreather vs nasal cannula for several days, but due to worsening respiratory distress, he was intubated on 09/12. Cardiology to perform left heart catheterization when clinically better. Pulmonology on board. Nephrology consulted for PHILIPPE. Hematology consulted due to thrombocytopenia. Currently being managed by critical care physician. Remains on fentanyl; he is currently undergoing sedation holidays off propofol. 09/21/16: Palliative care consulted per 's request; she notes that she and patient's son have different views on patient's prognosis and she thinks Palliative Care would be helpful in EOL planning as patient "doesn't have any papers" identifying his own wishes. 09/22/16: Patient was made Alternative Code: DNR (no shock or chest compressions ) after discussion with family. 09/23/16: Sugars have been in 400s. On Levemir 20U BID which was increased per critical care 35U BID. Sedation holidays off propofol. Remains on fentanyl. 09/24/16: Blood sugars have somewhat improved, still elevated now in the 200s to 300s. Continues to be febrile, on ceftolarine, levo, fluconazole. Now on Precedex, fentanyl and propofol were discontinued. CT showing dense left basal ganglionic calcification without evidence of infarct, hemorrhage, mass. EEG was ordered, pending. Discharge Planning Unclear prognosis at this time Problem List: (1) ARDS (adult respiratory distress syndrome) Status: Acute Plan: Intubated and sedated in the ICU, PEEP of 8 today. Peak pressures 30s to 40s -Critical care managing -Consider placing in a prone bed -Decrease FiO2 as tolerated at FiO2 of 50%, per respiratory patient desaturates with any movement. -Daily sedation vacation -Steroids per critical care -DuoNebs every 6 hours -I's and O's -Daily weights (2) NSTEMI (non-ST elevated myocardial infarction) Status: Acute Plan: -Patient with elevated troponins to 1.[address] elevations in V1 V3 on admission -Cardiology signed off - may reconsult after clinical improvement -Left heart catheter when clinically able to tolerate procedure -Continue medical management (3) Aortic stenosis Status: Acute Plan: -Cardiothoracic surgery consulted -Cardiology and cardiothoracic surgery to discuss plans going forward -Will need to optimize medical management prior to performing any procedures -Pulmonology consulted given high surgical risk- appreciate recommendations (4) Pneumonia Status: Resolved Plan: -Strep pneumoniae in sputum culture from 09/03/16 -Procalcitonin wnl on 09/15 -Infectious disease consult, now on ceftolarine, levo, fluconazole (5) CHF due to valvular disease Status: Acute Plan: Echo performed on 09/02 showed EF of 5055 percent. -Aortic valve with moderate to severe stenosis -Coreg 3.125 mg by mouth every 12 hours (6) PHILIPPE (acute kidney injury) Status: Acute Plan: Stable -Nephrology on board -Monitor I's and O's -Avoid nephrotoxins -Off Bumex drip -Bumex ggt, d/c diuril. Good UO -2.5 L in 24 hours. (7) Thrombocytopenia Status: Acute Plan: Stable -Transfuse for platelets less than 20K -Decreased aspirin to 81mg daily, discontinue for platelets less than 40K -Hematology consulted -Suspect due to DIC/Consumption--fibrinogen preserved -Heparin subcutaneous discontinued -HIT positive, but likely false positive, TIGIST wnl and result does not support HIT -Hepatitis panel negative -Abdominal ultrasound on 09/07 shows heterogeneous hepatic echo texture consistent with chronic liver disease, splenomegaly, mild to moderate ascites -Continue to monitor daily CBC (8) Diabetes Status: Chronic Plan: Patient's home regimen is NPH 25 units every morning and 50 units daily at bedtime -Intubated, on Glucerna tube feeds -Switched to Levemir 35 units twice a day on 09/23 -Continue high scale SSI -Taper steroids -Adjust insulin regimen as needed (9) COPD exacerbation Status: Acute Plan: Patient with known COPD and [id number] history of smoking Albuterol every 2 hours when necessary DuoNeb nebs every 4 hours scheduled Prednisone 10 mg taper per CC (10) Hypertension Status: Chronic Plan: Carvedilol 6.25 bid q 12 hr. (11) Anxiety and depression Status: Chronic Plan: -Continue home meds on adjusted regimen -Trazodone 100 mg by mouth daily - -Sertraline 100 mg by mouth daily - taper to 50mg -Buspirone 10mg BID - hold -Primidone 100mg PO BID - continue (12) FEN/DVT PPX/GI PPX Status: Acute Plan: Fluids: per CC Electrolytes: Will monitor and replace as needed Nutrition: Tube feeds, Glucerna DVT Prophylaxis: Bilateral SCDs, heparin discontinued due to thrombocytopenia GI Prophylaxis: None currently wdw Dr. Harris. Problem Qualifiers (1) Aortic stenosis: Qualified Code: I35.0 - Aortic valve stenosis, unspecified etiology (2) Pneumonia: Qualified Code: J18.9 - Pneumonia of both lungs due to infectious organism, unspecified part of lung (3) Diabetes: (4) Hypertension: Qualified Code: I10 - Essential hypertension Corina Person MD R1 Sep 24, 2016 08:18
--- NOTE | 2016-09-24 10:05 | HHI.NPPN ---
Subjective Complaints: Confused, Shortness of Breath General Problems: Edema Renal Failure: Chronic, Acute Interval History 1emains intubated, sedated. On precedex gtt. T max 103.8. Creatinine is worse. He has had excellent response to diuresis. (Prachi Palencia) Review of Systems General General Remarks unable to evaluate (Prachi Palencia) Objective Data Data 09/23/16 09/24/16 18:59 06:59 Intake Total 1099 ml 1227 ml Output Total 2900 ml 2150 ml Balance -1801 ml -923 ml IV Total 494 ml 556 ml Tube Feeding 405 ml 551 ml Tube Irrigant 200 ml 120 ml Output Urine Total 2900 ml 2150 ml # Bowel Movements 1 1 Vital Signs Date Time Temp Pulse Resp B/P Pulse Ox O2 Delivery O2 Flow Rate FiO2 09/24/16 09:01 45 09/24/16 08:57 94 45 09/24/16 08:29 117 09/24/16 08:27 45 09/24/16 08:00 102.9 119 24 109/57 98 09/24/16 06:00 115 09/24/16 04:00 117 09/24/16 04:00 103.6 117 24 162/67 94 09/24/16 04:00 45 09/24/16 02:00 118 09/24/16 00:27 94 45 09/24/16 00:00 117 09/24/16 00:00 103.4 113 25 156/77 93 09/24/16 00:00 45 09/23/16 22:00 113 09/23/16 21:00 94 45 09/23/16 20:00 50 09/23/16 20:00 119 09/23/16 20:00 103.8 121 24 172/73 93 09/23/16 18:07 98 09/23/16 18:00 111 09/23/16 16:47 94 45 09/23/16 16:00 50 09/23/16 16:00 100.2 116 22 163/71 94 09/23/16 14:37 92 09/23/16 12:30 95 50 09/23/16 12:30 45 09/23/16 12:00 88 09/23/16 12:00 50 09/23/16 12:00 99.8 96 22 164/72 94 09/23/16 10:15 95 50 09/23/16 10:00 82 (Prachi Palencia) -: 09/24/16 0431 09/24/16 0431 Imaging Last Impressions Chest X-Ray 09/23/16 0600 Signed Impressions: Service Date/Time: September 03:17 - CONCLUSION: Decreasing bilateral pulmonary parenchymal opacity likely representing decreasing pulmonary edema. Jasson Cobos MD Upper Extremity Ultrasound 09/23/16 0000 Signed Impressions: Service Date/Time: September 08:54 - CONCLUSION: No DVT. Frank Og MD Head CT 09/23/16 0000 Signed Impressions: Service Date/Time: September 17:38 - CONCLUSION: Dense left basal ganglionic calcification. No evidence of acute infarct, hemorrhage, mass or edema. Isidro Oliver MD Lower Extremity Ultrasound 09/11/16 0000 Signed Impressions: Service Date/Time: Sunday, September 11, 2016 12:30 - CONCLUSION: No DVT is identified within either lower extremity. Frank Young MD CT Angiography 09/10/16 0000 Signed Impressions: Service Date/Time: Sunday, September 11, 2016 01:05 - CONCLUSION: No evidence of pulmonary embolism. Frank Hardin MD Abdomen Ultrasound 09/07/16 0000 Signed Impressions: Service Date/Time: Wednesday, September 07, 2016 16:45 - CONCLUSION: Heterogeneous hepatic echotexture consistent with chronic liver disease. Splenomegaly Mild to moderate ascites Mildly thickened gallbladder wall without evidence of gallstones. No evidence of hydronephrosis. Isidro Oliver MD Chest CT 09/05/16 0000 Signed Impressions: Service Date/Time: Monday, September 05, 2016 15:37 - CONCLUSION: 1. Cardiomegaly with diffuse ground glass densities and consolidation likely pulmonary edema and/or pneumonia. 2. Small bilateral pleural effusions. 3. Prominent lymphadenopathy in the mediastinum. Cameron Archer MD Tubes & Lines: [place] Drip Comment precedex (Prachi Palencia) Physical Exam General Appearance: Well Developed, Well Nourished, No Acute Distress Appearance Remarks intubated, opens eyes (Prachi Palencia DIE CUT OPERATOR) Throat Throat Exam: Oral Mucosa Mims & Moist Throat Remarks edematous neck (Prachi Palencia DIE CUT OPERATOR) Pulmonary Resp Exam: Breath Sounds Equal, Crackles, Decreased Bases (Prachi Palencia DIE CUT OPERATOR) Cardiology CV Exam: Regular, Good Perfusion, Tachycardia (Prachi Palencia. DIE CUT OPERATOR) Gastrointestinal/Abdomen GI Exam: Soft, Non-Tender, Bowel Sounds Present (Prachi Palencia DIE CUT OPERATOR) Genitourinary Exam: Clear Urine (Prachi Palencia DIE CUT OPERATOR) Musculoskeletal MS Exam: Joints Intact, Normal Gait, Normal Tone (Prachi Palencia DIE CUT OPERATOR) Integumentary Skin Exam: Clear, Warm, Dry, Intact (Prachi Palencia DIE CUT OPERATOR) Extremeties Extremities Exam: Pedal Pulses Palpable, Trace Edema (Prachi Palencia DIE CUT OPERATOR) Neurologic Neuro Exam: Obtunded, Unresponsive, Sedated (Prachi Palencia) Psychiatric Psych Exam: Appropriate Responses (Prachi Palencia) Assessment/Plan Discussed Condition With: Spouse, Relative Assessment Summary: PHILIPPE/Acute Renal Failure, Fluid/Volume Overload Problem List: (1) PHILIPPE (acute kidney injury) Plan: PHILIPPE due to renal hypoperfusion, some element of cardiorenal syndrome. He has severe Aortic stenosis, at risk for recurrent CHF, pulmonary edema. Renal function had been stable, but is worse today K was replaced ; hypernatremic on free water with tube feeding he is non oliguric now tachycardic, hypotensive will stop bumex gtt, has had nearly 20 liters UOP over past few days pressors if needed to maintain adequate MAP monitor renal function daily avoid nephrotoxins (2) Congestive heart failure (CHF) Plan: History of NSTEMI, Aortic stenosis. Prognosis is guarded. monitor fluid volume status (3) Diabetes Plan: continue insulin therapy monitor glucose, goal 140-180 mg/dL (4) Hypertension Plan: now hypotensive (5) Severe sepsis Plan: ID following, remains febrile on Levaquin, Teflaro, fluconazole; to be given a dose of vancomycin await repeat cultures (6) Aortic stenosis Plan: cardiology signed off until he is extubated plan for heart cath if clinically improved (7) A-fib Plan: now tachycardic (Prachi Palencia) Plan Patient before I could see the patient. (Gentry Roa MD) Problem Qualifiers (1) Congestive heart failure (CHF): (2) Diabetes: (3) Hypertension: Qualified Code: I10 - Essential hypertension (4) Aortic stenosis: Qualified Code: I35.0 - Aortic valve stenosis, unspecified etiology (5) A-fib: Qualified Code: I48.91 - Atrial fibrillation, unspecified type Prachi Palencia Sep 24, 2016 10:05 Gentry Roa MD Sep 24, 2016 17:29
--- NOTE | 2016-09-24 10:08 | HHI.IDPN ---
Subjective Subjective Remarks ID COVERAGE Mr. Gudino is a 71-year-old male with PMHx significant for COPD, aortic stenosis, hypertension and diabetes who presented to the emergency department with progressive shortness of breath and nonproductive cough for last 5 days. Notes reviewed. Patient was Rxd for Resistant Pneumococcal PNA Recently started having fevers 09/21 Has been persistent and high Abx restarted 09/22 CXR with stable infiltrates No central line [place] changed UA ok LFT ok 2 BM per day BC negative so far Vent dependent Not responsive off sedation Antibiotics Teflaro IV Levaquin oral. Diflucan Lines PIV Line sites with no e/o infection Past Medical History reviewed Allergies: Coded Allergies: Niacin (Unverified Allergy, Severe, GENERALIZED BURNING AND ITCHING, ) Objective . Vital Signs Date Time Temp Pulse Resp B/P Pulse Ox O2 Delivery O2 Flow Rate FiO2 09/24/16 09:01 45 09/24/16 08:57 94 45 09/24/16 08:29 117 09/24/16 08:27 45 09/24/16 08:00 102.9 119 24 109/57 98 09/24/16 06:00 115 09/24/16 04:00 117 09/24/16 04:00 103.6 117 24 162/67 94 09/24/16 04:00 45 09/24/16 02:00 118 09/24/16 00:27 94 45 09/24/16 00:00 117 09/24/16 00:00 103.4 113 25 156/77 93 09/24/16 00:00 45 09/23/16 22:00 113 09/23/16 21:00 94 45 09/23/16 20:00 50 09/23/16 20:00 119 09/23/16 20:00 103.8 121 24 172/73 93 09/23/16 18:07 98 09/23/16 18:00 111 09/23/16 16:47 94 45 09/23/16 16:00 50 09/23/16 16:00 100.2 116 22 163/71 94 09/23/16 14:37 92 09/23/16 12:30 95 50 09/23/16 12:30 45 09/23/16 12:00 88 09/23/16 12:00 50 09/23/16 12:00 99.8 96 22 164/72 94 09/23/16 10:15 95 50 09/23/16 09/23/16 09/24/16 15:00 23:00 07:00 Intake Total 752 ml 873 ml 701 ml Output Total 1800 ml 2650 ml 600 ml Balance -1048 ml -1777 ml 101 ml IV Total 372 ml 333 ml 345 ml Tube Feeding 280 ml 380 ml 296 ml Tube Irrigant 100 ml 160 ml 60 ml Output Urine Total 1800 ml 2650 ml 600 ml # Bowel Movements 1 0 1 . Laboratory Tests Test 09/23/16 09/24/16 04:18 04:31 White Blood Count 7.7 TH/MM3 12.1 TH/MM3 Red Blood Count 3.45 MIL/MM3 4.15 MIL/MM3 Hemoglobin 9.5 GM/DL 11.5 GM/DL Hematocrit 29.2 % 35.7 % Mean Corpuscular Volume 84.6 FL 86.0 FL Mean Corpuscular Hemoglobin 27.5 PG 27.6 PG Mean Corpuscular Hemoglobin 32.5 % 32.1 % Concent Red Cell Distribution Width 16.7 % 17.3 % Platelet Count 124 TH/MM3 215 TH/MM3 Mean Platelet Volume 10.3 FL 9.5 FL Neutrophils (%) (Auto) 78.5 % Lymphocytes (%) (Auto) 10.9 % Monocytes (%) (Auto) 9.7 % Eosinophils (%) (Auto) 0.6 % Basophils (%) (Auto) 0.3 % Neutrophils # (Auto) 6.1 TH/MM3 Lymphocytes # (Auto) 0.8 TH/MM3 Monocytes # (Auto) 0.7 TH/MM3 Eosinophils # (Auto) 0.0 TH/MM3 Basophils # (Auto) 0.0 TH/MM3 CBC Comment DIFF FINAL Differential Comment Laboratory Tests Test 09/22/16 09/22/16 09/22/16 09/23/16 12:35 14:05 18:51 00:53 Procalcitonin 0.20 ng/mL Sodium Level 141 MEQ/L 140 MEQ/L 141 MEQ/L Potassium Level 3.5 MEQ/L 3.4 MEQ/L 3.3 MEQ/L Chloride Level 94 MEQ/L 92 MEQ/L 94 MEQ/L Carbon Dioxide Level 38.6 MEQ/L 37.5 MEQ/L 36.3 MEQ/L Anion Gap 8 MEQ/L 11 MEQ/L 11 MEQ/L Blood Urea Nitrogen 65 MG/DL 64 MG/DL 65 MG/DL Creatinine 1.48 MG/DL 1.56 MG/DL 1.60 MG/DL Estimat Glomerular Filtration 47 ML/MIN 44 ML/MIN 43 ML/MIN Rate Random Glucose 299 MG/DL 380 MG/DL 400 MG/DL Calcium Level 9.0 MG/DL 9.0 MG/DL 9.0 MG/DL Magnesium Level 2.5 MG/DL 2.5 MG/DL 2.5 MG/DL Test 09/23/16 09/23/16 09/23/16 09/23/16 04:18 08:59 14:00 18:55 Sodium Level 142 MEQ/L 143 MEQ/L 144 MEQ/L 145 MEQ/L Potassium Level 2.9 MEQ/L 3.4 MEQ/L 3.5 MEQ/L 3.5 MEQ/L Chloride Level 93 MEQ/L 96 MEQ/L 96 MEQ/L 96 MEQ/L Carbon Dioxide Level 38.4 MEQ/L 38.1 MEQ/L 37.4 MEQ/L 39.2 MEQ/L Anion Gap 11 MEQ/L 9 MEQ/L 11 MEQ/L 10 MEQ/L Blood Urea Nitrogen 66 MG/DL 65 MG/DL 63 MG/DL 67 MG/DL Creatinine 1.63 MG/DL 1.63 MG/DL 1.56 MG/DL 1.77 MG/DL Estimat Glomerular Filtration 42 ML/MIN 42 ML/MIN 44 ML/MIN 38 ML/MIN Rate Random Glucose 403 MG/DL 359 MG/DL 324 MG/DL 336 MG/DL Calcium Level 8.9 MG/DL 9.0 MG/DL 9.1 MG/DL 9.4 MG/DL Magnesium Level 2.6 MG/DL 2.6 MG/DL 2.5 MG/DL 2.5 MG/DL Total Bilirubin 0.8 MG/DL Aspartate Amino Transf 28 U/L (AST/SGOT) Alanine Aminotransferase 24 U/L (ALT/SGPT) Alkaline Phosphatase 336 U/L Total Protein 7.4 GM/DL Albumin 2.8 GM/DL Total Creatine Kinase 58 U/L Lipase 331 U/L Test 09/24/16 09/24/16 01:07 04:31 Sodium Level 147 MEQ/L 148 MEQ/L Potassium Level 4.3 MEQ/L 4.0 MEQ/L Chloride Level 100 MEQ/L 99 MEQ/L Carbon Dioxide Level 38.2 MEQ/L 37.0 MEQ/L Anion Gap 9 MEQ/L 12 MEQ/L Blood Urea Nitrogen 72 MG/DL 80 MG/DL Creatinine 1.95 MG/DL 2.21 MG/DL Estimat Glomerular Filtration 34 ML/MIN 30 ML/MIN Rate Random Glucose 291 MG/DL 352 MG/DL Calcium Level 9.4 MG/DL 9.2 MG/DL Magnesium Level 2.7 MG/DL Microbiology Date/Time Procedure Status Source Growth 09/22/16 12:20 Gram Stain - Final Complete Sputum Endotracheal 09/22/16 12:20 Sputum Culture - Final Complete Sputum Endotracheal 09/22/16 12:30 Aerobic Blood Culture - Preliminary Resulted Blood Peripheral NO GROWTH IN 1 DAY 09/22/16 12:30 Anaerobic Blood Culture - Preliminary Resulted Blood Peripheral NO GROWTH IN 1 DAY 09/22/16 12:35 Aerobic Blood Culture - Preliminary Resulted Blood Peripheral NO GROWTH IN 1 DAY 09/22/16 12:35 Anaerobic Blood Culture - Preliminary Resulted Blood Peripheral NO GROWTH IN 1 DAY Imaging Chest X-Ray 09/23/16 0600 Signed Impressions: Service Date/Time: September 03:17 - CONCLUSION: Decreasing bilateral pulmonary parenchymal opacity likely representing decreasing pulmonary edema. Jasson Cobos MD Upper Extremity Ultrasound 09/23/16 0000 Signed Impressions: Service Date/Time: September 08:54 - CONCLUSION: No DVT. Frank Og MD Head CT 09/23/16 0000 Signed Impressions: Service Date/Time: September 17:38 - CONCLUSION: Dense left basal ganglionic calcification. No evidence of acute infarct, hemorrhage, mass or edema. Isidro Oliver MD Lower Extremity Ultrasound 09/11/16 0000 Signed Impressions: Service Date/Time: Sunday, September 11, 2016 12:30 - CONCLUSION: No DVT is identified within either lower extremity. Frank Young MD CT Angiography 09/10/16 0000 Signed Impressions: Service Date/Time: Sunday, September 11, 2016 01:05 - CONCLUSION: No evidence of pulmonary embolism. Frank Hardin MD Abdomen Ultrasound 09/07/16 0000 Signed Impressions: Service Date/Time: Wednesday, September 07, 2016 16:45 - CONCLUSION: Heterogeneous hepatic echotexture consistent with chronic liver disease. Splenomegaly Mild to moderate ascites Mildly thickened gallbladder wall without evidence of gallstones. No evidence of hydronephrosis. Isidro Oliver MD Chest CT 09/05/16 0000 Signed Impressions: Service Date/Time: Monday, September 05, 2016 15:37 - CONCLUSION: 1. Cardiomegaly with diffuse ground glass densities and consolidation likely pulmonary edema and/or pneumonia. 2. Small bilateral pleural effusions. 3. Prominent lymphadenopathy in the mediastinum. Cameron Archer MD Chest X-Ray 09/12/16 0000 Signed Impressions: Service Date/Time: Monday, September 12, 2016 13:02 - CONCLUSION: 1. Endotracheal tube is now present. The brynn is not well-visualized but tube tip is estimated to be approximately 2 cm from the brynn. 2. Severe bilateral air space consolidation increased from the earlier exam. Frank Young MD Lower Extremity Ultrasound 09/11/16 0000 Signed Impressions: Service Date/Time: Sunday, September 11, 2016 12:30 - CONCLUSION: No DVT is identified within either lower extremity. Frank Young MD CT Angiography 09/10/16 0000 Signed Impressions: Service Date/Time: Sunday, September 11, 2016 01:05 - CONCLUSION: No evidence of pulmonary embolism. Frank Hardin MD Abdomen Ultrasound 09/07/16 0000 Signed Impressions: Service Date/Time: Wednesday, September 07, 2016 16:45 - CONCLUSION: Heterogeneous hepatic echotexture consistent with chronic liver disease. Splenomegaly Mild to moderate ascites Mildly thickened gallbladder wall without evidence of gallstones. No evidence of hydronephrosis. Isidro Oliver MD Upper Extremity Ultrasound 09/06/16 0000 Signed Impressions: Service Date/Time: Tuesday, September 06, 2016 20:43 - CONCLUSION: No evidence of DVT. Isidro Oliver MD Chest CT 09/05/16 0000 Signed Impressions: Service Date/Time: Monday, September 05, 2016 15:37 - CONCLUSION: 1. Cardiomegaly with diffuse ground glass densities and consolidation likely pulmonary edema and/or pneumonia. 2. Small bilateral pleural effusions. 3. Prominent lymphadenopathy in the mediastinum. Cameron Archer MD Physical Exam GENERAL: Sedated on the vent, looks comfortable. SKIN: Cool and dry. NO rash HEENT: [place] conjunctive. Pupils equal round and reactive. No scleral icterus. No injection or drainage. Nose without bleeding, or purulent drainage. He is orally intubated NECK: Trachea midline. Supple, nontender, no meningeal signs. Looks big, but no induration, no crepitus CARDIOVASCULAR: Has systolic murmur at base of heart, heard also L precordium , lateral L chest. NO rub RESPIRATORY: Coarse breath sounds andrea. Decreased air entry bilaterally. GASTROINTESTINAL: Abdomen soft, not distended, no reaction to deep palpation. Bowel sounds (+) MUSCULOSKELETAL: Extremities without clubbing, cyanosis, no edema. Feet warm and well perfused NEURO: Sedated PSYCH: Unable to assess LINE: PIV No evidence of infection : [place] in place, urine looks clear Assessment & Plan Remarks IMPRESSION Possible new Sepsis, has persistent high fevers Pneumococcal PNA, resistant strain - S to teflaro - S/P Rx Acute resp failure on vent - possibly due to pulmonary edema, has known severe , BNP elevated - concern for new PNA Acute renal failure: sepsis, prerenal Acute transaminitis: sepsis, better Acute COPD exacerbation Severe Aortic Stenosis with Pulm edema RECS: Repeat 2 BC today I will broaden Abx coverage faustino since he has persistent high fevers - VAnco x 1 dose, Cefepime Stop Teflaro IV Continue Levaquin IV Continue Diflucan Follow C/S Monitor progress Try cooling blanket for high fevers D/W RN Spoke with family Jennifer Crenshaw MD Sep 24, 2016 10:08
[2016-09-24] MEDS ORDERED: DEXTROSE 50% IN WATER 50 ML VIAL(D50) IV PUSH PRN (10:45)
[2016-09-24] MEDS ORDERED: MISC INFORMATION XX ONE (10:45)
[2016-09-24] MEDS ORDERED: INSULIN REGULAR (IV INFUSION) 100 UNITS in SODIUM CHLORIDE 0.9% INJ 99 ML IV SCH (10:45)
--- NOTE | 2016-09-24 10:49 | HHI.CCPN ---
Subjective Remarks/Hospital Course The patient is a 71-year-old male with past medical history significant for COPD, aortic stenosis, hypertension and diabetes who presented to the emergency department with progressive shortness of breath and nonproductive cough for last 5 days. He was diagnosed and admitted to service on with [id number] CT, COPD exacerbation and probable pneumonia. He had a previous heart catheterization in 2014, was told at that time he needed to have aortic valve replacement. He was started on IV antibiotics with Rocephin and azithromycin and also was placed on IV steroids and DuoNeb breathing treatment for probable COPD exacerbation. All the cultures so far negative, also negative for influenza A and B, negative for Streptococcus and Legionella antigen. Cardiology was consulted, and echo showed moderate to severe aortic stenosis. Cardiothoracic surgery was also consulted and is following, plan for cardiac catheterization this Tuesday. A Halicat was called today as the patient was increasingly lethargic with increased dyspnea and hypoxia. He desaturated to the 70% when RN attempted to move him. Chest x-ray showed bilateral pulmonary edema worsening compared to admission. He was moved to the ICU and critical care medicine was consulted. I evaluated the patient in ICU. He is tachypneic on 100% nonrebreather. Examination revealed bilateral crackles. 60 mg of IV Lasix stat given and patient was ordered to be placed on BiPAP at 06/16. BNP was 658 SUBJECT 09/05/16: Patient did not tolerate BiPAP overnight. Currently remains on partial nonrebreather. Urine output more than 6 L in 24 hours. He developed atrial flutter with RVR, was placed on esmolol which I have changed to Cardizem. Chest x-ray shows interval improvement in my review 09/06/16: Remains on pNRB. sputum cx with strep pneumo. Urine out put diminishing. 1L bolus given with adequate response. Bilateral lung infiltrate. Discussed with Dr. Dudley. Will hold off cath until Reps failure/ALI improves and renal failure improves 09.07 Patient is on BIPAP 06/16 with FIO2 65%. Afebrile. 09/08 Patient is off BIPAP on Bumex drip 2mg/hr with UO 7.6L in 24 hrs. Afebrile feeling better. Renal function improving with Cr 1.52 from 2.07. 09/09 Patient is on partial rebreather with good sats. Afebrile. Renal function improving with Cr: 1.09 from 1.52. Remains on Bumex drip down 0.5mg/hr. 09/10 Patient was placed on Amio drip yesterday . Afebrile. Off Bumex drip. 09/11 No acute events overnight. Remains on Amio drip. On partial rebreather. CT chest last night showed no PE. 09/12 No acute events overnight. Remains on partial rebreather, off Amio drip. Afebrile. 09/13 Patient was intubated yesterday for resp distress and hypoxemia. Sedated with Diprivan and Fentanyl. Afebrile. On PRVC/AC RR 18, TV 550, PEEP: 10, FIO2 60%. 09/14 Patient is sedated with Diprivan and Fentanyl. Off Bumex drip, afebrile. Cr 1.53 today from 1.41. 09/15: Remains sedated. FiO2 70% with PEEP of 10. CXR unchanged. Creat 1.57. CXR remains same with bilateral infiltrates 09/16: Remains intubated sedated. FiO2 at 50% with a PEEP of 12. Chest x-ray unchanged to slightly improved. Urine output 2.4 L in 24 hours after starting Bumex 2 mg IV every 12 yesterday by nephrology. Creatinine stable to slightly improved 09/17 Patient is sedated with Diprivan/Fentanyl and intubated. On PRVC/AC RR 20 , TV 550, IT:0.9, PEEP:12, FIO2 50%. Afebrile. 09/18: very high peak pressures in the 40s despite conservative PRVC settings. still grossly volume overloaded. also spiked new fever to 102 today, off abx. minimal secretions. very critically ill. 09/19: peak pressures slightly improved. no significant improvement in overall function. still volume overloaded. no longer febrile. sputum gram stain rare GPCs, but this was the same as the last gram stain on 09/13 which did not grow any single bacterial strain. 09/20: still poor uop and net even fluid balance despite aggressive diuresis and persistent volume overload. may need to discuss tracheostomy in near future. no improvements in mechanical ventilation. 09/21: good diuresis with diamox/diuril/bumex yesterday with net -1L. resp status slightly better. mental status poor, but likely combination of hypoactive delirium and poor sedation metabolism. 09/22: Diet resting well urine output 6 L in 24 hours, creatinine remains stable at 1.5. Chest x-ray history unchanged with bilateral infiltrates/ARDS. Will reduce PEEP to 8 if tolerated 09/23: Urine output 7 L in 24 hours creatinine remains stable. Slight improvement in bilateral infiltrates. Continues to spike fever. Diflucan added by infectious diseases SUBJECTIVE: 09/24: Sedation discontinued yesterday. Diuresed 20 mL past 3 days. Creatinine currently 2.1.. MAXIMUM TEMPERATURE 103.8. Quite tachypneic with rates in the 40s and hypotensive currently. Receiving normal saline 3 L wide open currently.. Objective Vital Signs Date Time Temp Pulse Resp B/P Pulse Ox O2 Delivery O2 Flow Rate FiO2 09/24/16 09:01 45 09/24/16 08:57 94 09/24/16 08:29 117 09/24/16 08:00 102.9 24 109/57 09/22/16 04:00 Mechanical Ventilator Intake and Output 09/23/16 09/23/16 09/24/16 08:00 16:00 00:00 Intake Total 622 ml 752 ml 873 ml Output Total 800 ml 1800 ml 2650 ml Balance -178 ml -1048 ml -1777 ml Result Diagram: 09/24/16 0431 09/24/16 0431 Other Results Microbiology Date/Time Procedure Status Source Growth 09/24/16 10:22 Aerobic Blood Culture Received Blood Peripheral Pending 09/24/16 10:22 Anaerobic Blood Culture Received Blood Peripheral Pending 09/22/16 12:35 Aerobic Blood Culture - Preliminary Resulted Blood Peripheral NO GROWTH IN 1 DAY 09/22/16 12:35 Anaerobic Blood Culture - Preliminary Resulted Blood Peripheral NO GROWTH IN 1 DAY 09/22/16 12:20 Gram Stain - Final Complete Sputum Endotracheal 09/22/16 12:20 Sputum Culture - Final Complete Sputum Endotracheal 09/21/16 06:30 Stool Occult Blood (CASSIDY) - Final Complete Stool Stool HEMOCCULT POSITIVE Imaging Last Impressions Chest X-Ray 09/23/16 0600 Signed Impressions: Service Date/Time: September 03:17 - CONCLUSION: Decreasing bilateral pulmonary parenchymal opacity likely representing decreasing pulmonary edema. Jasson Cobos MD Upper Extremity Ultrasound 09/23/16 0000 Signed Impressions: Service Date/Time: September 08:54 - CONCLUSION: No DVT. Frank Og MD Head CT 09/23/16 0000 Signed Impressions: Service Date/Time: September 17:38 - CONCLUSION: Dense left basal ganglionic calcification. No evidence of acute infarct, hemorrhage, mass or edema. Isidro Oliver MD Lower Extremity Ultrasound 09/11/16 0000 Signed Impressions: Service Date/Time: Sunday, September 11, 2016 12:30 - CONCLUSION: No DVT is identified within either lower extremity. Frank Young MD CT Angiography 09/10/16 0000 Signed Impressions: Service Date/Time: Sunday, September 11, 2016 01:05 - CONCLUSION: No evidence of pulmonary embolism. Frank Hardin MD Abdomen Ultrasound 09/07/16 0000 Signed Impressions: Service Date/Time: Wednesday, September 07, 2016 16:45 - CONCLUSION: Heterogeneous hepatic echotexture consistent with chronic liver disease. Splenomegaly Mild to moderate ascites Mildly thickened gallbladder wall without evidence of gallstones. No evidence of hydronephrosis. Isidro Oliver MD Chest CT 09/05/16 0000 Signed Impressions: Service Date/Time: Monday, September 05, 2016 15:37 - CONCLUSION: 1. Cardiomegaly with diffuse ground glass densities and consolidation likely pulmonary edema and/or pneumonia. 2. Small bilateral pleural effusions. 3. Prominent lymphadenopathy in the mediastinum. Cameron Archer MD Objective Remarks Gen: 71-year-old male lying in bed quite tachypneic and appears uncomfortable in moderate respiratory distress Head: Normocephalic. Atraumatic. EENT: Pupils equal round and reactive to light about 3 Young's light. Neck is swollen with no crepitus. No bruits appreciated. Cardiovascular: S1-S2 normal. 2/6 Systolic murmur heard in the right upper sternal border/left sternal border Respiratory: Coarse rhonchi appreciated bilaterally. Basilar crackles present Abdomen: Soft, nontender, nondistended. Hypoactive bowel sounds appreciated. No peritoneal signs. Musculoskeletal: No gross deformities. No edema. Skin: No obvious rashes or erythema. Neuro: Partially open size off sedation. Withdraws extremities to pain. Moves extremities spontaneously. Does not follow commands. Date of Insertion: Sep 23, 2016 A/P Assessment and Plan NEURO/Psych: [place] Peripheral neuropathy Depression Chronic low back pain - Currently on propofol/as needed fentanyl drips for sedation/analgesia while intubated. Precedex drip was weaned off is currently not controlling patient -Monitor neuro status. Daily sedation vacation -Ct of head yesterday revealed left basal ganglia calcification of was unremarkable. EEG pending Acetaminophen for fever Currently on Zoloft 50 mg daily and trazodone 100 mg daily On permanent 100 mg 3 times a day nursing of her tremor. This currently on hold. Renal dose to be 100 mg daily. RESP: Acute hypoxemic respiratory failure ARDS Pneumococcal pneumonia COPD exacerbation [facility]//8/45 Ventilator bundle Bronchodilator therapy every 4 hours and as needed Spontaneous breathing trials daily. Yesterday, tolerated CPAP 04/17 -Continue with vent support keep sat >92% -09/10 CTA chest - no PE -Continues to be volume overloaded, however pulmonary edema predominantly is noncardiogenic secondary to ARDS -CXR shows interval improvement 09/24 CV: Severe aortic stenosis CHFsystolic NSTEMI -Monitor HR and BP keep MAP>65mmHg -Continue aspirin 81 mg daily, Coreg 6.25mg BID, -Hold Hydralazine 50mg Q8 given borderline pressures. -Echo showed EF 50-55%, mod-severe -Cardiothoracic surgery and cardiology Dr. Dudley is following -[facility] on hold due to resp failure and renal failure- Dr. Dudley. - On pravastatin 40 mg by mouth daily for dyslipidemia GI: -Elevated LFT's..trending down -Hypernatremia- -On Glucerna 1.5@45ml/hr. -Protonix currently twice daily 40 mg for GI prophylaxis -Monitor LFT's ( trending down) -US abdomen: Chronic liver disease. Splenomegaly Mild to moderate ascites Mildly thickened gallbladder wall without evidence of gallstones. No evidence of hydronephrosis. -hypernatremia reasons. On free water 300 every 4 Renal/: Acute kidney injury. Hypernatremia Volume overload -Monitor renal function, I/O's, avoid nephrotoxins. -Renal- Dr. Hoskote. Renal US: No hydronephrosis -Bumex infusion, 2mg/hr. discontinued today -Hold daily diuril. -Completed diamox 500mg iv q8h x 3 doses for contraction alkalosis this is currently been held -daily BMP ID: Severe Sepsis Pneumococcal pneumonia Pyrexia -Teflaro IV is discontinued today. Cefepime 1 g every 12 hours and vancomycin reinitiated per ID. - Continue, Levaquin oral per ID. Diflucan added 09/23 for persistent fever -Sputum culture positive for strep pneumo on 09/03. All cultures negative.. Influenza negative - Blood cultures pending Blood cultures no growth - HEME: Leukocytosis Normocytic anemia -Monitor CBC, CMP, coags. Hep PLT ab positive, TIGIST negative, Heme is following ENDO: Type 2 diabetes Hypothyroidism -Better glycemic control. continue high scale SSI, q4h. continue Levemir 35u q12h. Will initiate insulin drip -Prednisone taper -Continue Synthroid 50 mcg daily. TSH: 0.373 PROPH: -Bilateral lower extremity SCDs. Protonix for GI prophylaxis. SQH. LINES: -Utilize peripheral IVs, Critical Care: The total critical care time was 35 minutes. Time to perform other separately billable procedures was not included in the critical care time. Awaiting family decision for tracheostomy/PEG on Tuesday. Palliative care on board. Wyatt Schneider MD Sep 24, 2016 10:49
[2016-09-24] MEDS ORDERED: PROPOFOL 1000 MG/100 ML INJ 100 ML IV SCH (11:00)
[2016-09-24] MEDS ORDERED: fentaNYL DRIP 250 ML IV SCH ×2 (11:00→12:45)
[2016-09-24] MEDS ORDERED: SODIUM CHLOR 0.9% 1000 ML INJ 1,000 ML IV ONE (11:00)
[2016-09-24] MEDS ORDERED: CEFEPIME INJ 1,000 MG in SODIUM CHLORIDE 0.9% INJ 100 ML IV SCH (11:00)
[2016-09-24] MEDS ORDERED: VANCOMYCIN INJ 1,000 MG in SODIUM CHLOR 0.9% 250 ML INJ 250 ML IV ONE (11:00)
[2016-09-24 11:12] LABS: BICARBONATE 36.9 MEQ/L (21.0-32.0); POTASSIUM 4.1 MEQ/L (3.5-5.1)
[2016-09-24] MEDS ORDERED: PHENYLEPHRINE HCL 10 MG/ML VIAL ONE ×2 (11:12→11:14)
[2016-09-24] MEDS ORDERED: HYDROmorphone HCL PF 2 MG/ML VIAL IV ONE ×2 (12:45→13:15)
[2016-09-24] MEDS ORDERED: MIDAZOLAM 100 MG/ML INJ 100 ML IV SCH (12:45)
[2016-09-24] MEDS ORDERED: LORazepam 2 MG/ML VIAL IV ONE ×2 (12:45→13:15)
[2016-09-24] MEDS ORDERED: HYOSCYAMINE 0.125 MG TAB PO/SL ONE (12:45)
[2016-09-24] MEDS ORDERED: ACETAMINOPHEN 650 MG SUPP PR PRN (13:15)
[2016-09-24] MEDS ORDERED: LORazepam 2 MG/ML VIAL IVS PRN (13:15)
[2016-09-24] MEDS ORDERED: FUROSEMIDE 20 MG/2 ML VIAL IV PRN (13:15)
[2016-09-24] MEDS ORDERED: LORazepam 2 MG/ML VIAL IV PRN ×2 (13:15)
[2016-09-24] MEDS ORDERED: BISACODYL 10 MG SUPP PR PRN (13:15)
[2016-09-24] MEDS ORDERED: HYDROmorphone HCL PF 2 MG/ML VIAL IV PRN (13:15)
[2016-09-24] MEDS ORDERED: HYDROCORTISONE SOD SUCCINATE 100 MG VIAL IV PUSH SCH (14:00)
--- NOTE | 2016-09-24 14:59 | HHI.DS ---
Summary Note Date of : Sep 24, 2016 Time Of : 13:40 Admission Date Aug 31, 2016 at 13:13 Admitting Diagnosis nstemi, lactic acidosis Diagnosis at Time of : (1) Respiratory failure ICD Code: J96.90 Diagnosis: Principal (2) NSTEMI (non-ST elevated myocardial infarction) ICD Code: I21.4 Diagnosis: Principal (3) Pneumonia ICD Code: J18.9 Diagnosis: Principal (4) PHILIPPE (acute kidney injury) ICD Code: N17.9 Diagnosis: Principal (5) Severe sepsis ICD Code: A41.9 Diagnosis: Principal (6) Aortic stenosis ICD Code: I35.0 Diagnosis: Principal Procedures - Left ventricle: The cavity size was normal. Wall thickness was increased in a pattern of mild LVH. Systolic function was at the lower limits of normal. The estimated ejection fraction was in the range of 50% to 55%. Wall motion was normal; there were no regional wall motion abnormalities. - Aortic valve: Transvalvular velocity was increased less than expected. There was moderate to severe stenosis. Mild regurgitation. Valve area: 0.88cm^2(VTI). Valve area: 0.89cm^2 (Vmax). - Mitral valve: Valve area by continuity equation (using LVOT flow): 1.94cm^2. - Tricuspid valve: Mild regurgitation directed eccentrically and toward the septum. - Pulmonary arteries: Systolic pressure was moderately increased. PA peak pressure: 50mm Hg (S). Brief History The patient is a 71-year-old male with past medical history significant for COPD, aortic stenosis, hypertension and diabetes who presented to the emergency department with progressive shortness of breath and nonproductive cough for last 5 days. He was diagnosed and admitted to service on with [id number] MA, COPD exacerbation and probable pneumonia. He had a previous heart catheterization in 2014, was told at that time he needed to have aortic valve replacement. He was started on IV antibiotics with Rocephin and azithromycin and also was placed on IV steroids and DuoNeb breathing treatment for probable COPD exacerbation. All the cultures so far negative, also negative for influenza A and B, negative for Streptococcus and Legionella antigen. Cardiology was consulted, and echo showed moderate to severe aortic stenosis. Cardiothoracic surgery was also consulted and is following, plan for cardiac catheterization this Tuesday morning. A Halicat was called today as the patient was increasingly lethargic with increased dyspnea and hypoxia. He desaturated to the 70% when RN attempted to move him. Chest x-ray showed bilateral pulmonary edema worsening compared to admission. He was moved to the ICU and critical care medicine was consulted. I evaluated the patient in ICU. He is tachypneic on 100% nonrebreather. Examination revealed bilateral crackles. 60 mg of IV Lasix stat given and patient was ordered to be placed on BiPAP at 12/7. BNP was 658 CBC/BMP: 09/24/16 0431 09/24/16 1022 Significant Findings Laboratory Tests Test 09/21/16 09/22/16 09/22/16 09/22/16 21:01 04:02 07:22 14:05 Potassium Level 2.8 MEQ/L 3.1 MEQ/L 3.1 MEQ/L (3.5-5.1) (3.5-5.1) (3.5-5.1) Chloride Level 89 MEQ/L 92 MEQ/L 92 MEQ/L 94 MEQ/L (98-107) (98-107) (98-107) (98-107) Carbon Dioxide Level 40.8 MEQ/L 38.6 MEQ/L 40.0 MEQ/L 38.6 MEQ/L (21.0-32.0) (21.0-32.0) (21.0-32.0) (21.0-32.0) Blood Urea Nitrogen 71 MG/DL (7-18) 67 MG/DL (7-18) 69 MG/DL (7-18) 65 MG/DL (7- 18) Creatinine 1.55 MG/DL 1.51 MG/DL 1.50 MG/DL 1.48 MG/DL (0.60-1.30) (0.60-1.30) (0.60-1.30) (0.60-1.30) Estimat Glomerular Filtration 45 ML/MIN (>89) 46 ML/MIN (>89) 46 ML/MIN (>89) 47 ML/MIN (>89) Rate Random Glucose 259 MG/DL 223 MG/DL 229 MG/DL 299 MG/DL (74-106) (74-106) (74-106) (74-106) Calcium Level 8.2 MG/DL 8.3 MG/DL (8.5-10.1) (8.5-10.1) Magnesium Level 2.6 MG/DL 2.6 MG/DL 2.6 MG/DL (1.5-2.5) (1.5-2.5) (1.5-2.5) Red Blood Count 2.81 MIL/MM3 (4.50-5.90) Hemoglobin 7.9 GM/DL (13.0-17.0) Hematocrit 24.0 % (39.0-51.0) Platelet Count 88 TH/MM3 (150-450) Test 09/22/16 09/23/16 09/23/16 09/23/16 18:51 00:53 04:18 08:45 Potassium Level 3.4 MEQ/L 3.3 MEQ/L 2.9 MEQ/L (3.5-5.1) (3.5-5.1) (3.5-5.1) Chloride Level 92 MEQ/L 94 MEQ/L 93 MEQ/L (98-107) (98-107) (98-107) Carbon Dioxide Level 37.5 MEQ/L 36.3 MEQ/L 38.4 MEQ/L (21.0-32.0) (21.0-32.0) (21.0-32.0) Blood Urea Nitrogen 64 MG/DL (7-18) 65 MG/DL (7-18) 66 MG/DL (7-18) Creatinine 1.56 MG/DL 1.60 MG/DL 1.63 MG/DL (0.60-1.30) (0.60-1.30) (0.60-1.30) Estimat Glomerular Filtration 44 ML/MIN (>89) 43 ML/MIN (>89) 42 ML/MIN (>89) Rate Random Glucose 380 MG/DL 400 MG/DL 403 MG/DL (74-106) (74-106) (74-106) Red Blood Count 3.45 MIL/MM3 (4.50-5.90) Hemoglobin 9.5 GM/DL (13.0-17.0) Hematocrit 29.2 % (39.0-51.0) Platelet Count 124 TH/MM3 (150-450) Neutrophils (%) (Auto) 78.5 % (16.0-70.0) Monocytes (%) (Auto) 9.7 % (0.0-8.0) Lymphocytes # (Auto) 0.8 TH/MM3 (1.0-4.8) Magnesium Level 2.6 MG/DL (1.5-2.5) Urine Occult Blood MOD (NEG) Urine RBC 9 /hpf (0-3) Urine Mucus FEW /lpf (OCC) Test 09/23/16 09/23/16 09/23/16 09/24/16 08:59 14:00 18:55 01:07 Potassium Level 3.4 MEQ/L (3.5-5.1) Chloride Level 96 MEQ/L 96 MEQ/L 96 MEQ/L (98-107) (98-107) (98-107) Carbon Dioxide Level 38.1 MEQ/L 37.4 MEQ/L 39.2 MEQ/L 38.2 MEQ/L (21.0-32.0) (21.0-32.0) (21.0-32.0) (21.0-32.0) Blood Urea Nitrogen 65 MG/DL (7-18) 63 MG/DL (7-18) 67 MG/DL (7-18) 72 MG/DL (7- 18) Creatinine 1.63 MG/DL 1.56 MG/DL 1.77 MG/DL 1.95 MG/DL (0.60-1.30) (0.60-1.30) (0.60-1.30) (0.60-1.30) Estimat Glomerular Filtration 42 ML/MIN (>89) 44 ML/MIN (>89) 38 ML/MIN (>89) 34 ML/MIN (>89) Rate Random Glucose 359 MG/DL 324 MG/DL 336 MG/DL 291 MG/DL (74-106) (74-106) (74-106) (74-106) Magnesium Level 2.6 MG/DL 2.7 MG/DL (1.5-2.5) (1.5-2.5) Alkaline Phosphatase 336 U/L (45-117) Albumin 2.8 GM/DL (3.4-5.0) Sodium Level 147 MEQ/L (136-145) Test 09/24/16 09/24/16 04:31 10:22 White Blood Count 12.1 TH/MM3 (4.0-11.0) Red Blood Count 4.15 MIL/MM3 (4.50-5.90) Hemoglobin 11.5 GM/DL (13.0-17.0) Hematocrit 35.7 % (39.0-51.0) Red Cell Distribution Width 17.3 % (11.6-17.2) Sodium Level 148 MEQ/L 148 MEQ/L (136-145) (136-145) Carbon Dioxide Level 37.0 MEQ/L 36.9 MEQ/L (21.0-32.0) (21.0-32.0) Blood Urea Nitrogen 80 MG/DL (7-18) 100 MG/DL (7-18) Creatinine 2.21 MG/DL 2.99 MG/DL (0.60-1.30) (0.60-1.30) Estimat Glomerular Filtration 30 ML/MIN (>89) 21 ML/MIN (>89) Rate Random Glucose 352 MG/DL 341 MG/DL (74-106) (74-106) Magnesium Level 3.0 MG/DL (1.5-2.5) Imaging Last Impressions Chest X-Ray 09/23/16 0600 Signed Impressions: Service Date/Time: September 03:17 - CONCLUSION: Decreasing bilateral pulmonary parenchymal opacity likely representing decreasing pulmonary edema. Jasson Cobos MD Upper Extremity Ultrasound 09/23/16 0000 Signed Impressions: Service Date/Time: September 08:54 - CONCLUSION: No DVT. Frank Og MD Head CT 09/23/16 0000 Signed Impressions: Service Date/Time: September 17:38 - CONCLUSION: Dense left basal ganglionic calcification. No evidence of acute infarct, hemorrhage, mass or edema. Isidro Oliver MD Lower Extremity Ultrasound 09/11/16 0000 Signed Impressions: Service Date/Time: Sunday, September 11, 2016 12:30 - CONCLUSION: No DVT is identified within either lower extremity. Frank Young MD CT Angiography 09/10/16 0000 Signed Impressions: Service Date/Time: Sunday, September 11, 2016 01:05 - CONCLUSION: No evidence of pulmonary embolism. Frank Hardin MD Abdomen Ultrasound 09/07/16 0000 Signed Impressions: Service Date/Time: Wednesday, September 07, 2016 16:45 - CONCLUSION: Heterogeneous hepatic echotexture consistent with chronic liver disease. Splenomegaly Mild to moderate ascites Mildly thickened gallbladder wall without evidence of gallstones. No evidence of hydronephrosis. Isidro Oliver MD Chest CT 09/05/16 0000 Signed Impressions: Service Date/Time: Monday, September 05, 2016 15:37 - CONCLUSION: 1. Cardiomegaly with diffuse ground glass densities and consolidation likely pulmonary edema and/or pneumonia. 2. Small bilateral pleural effusions. 3. Prominent lymphadenopathy in the mediastinum. Cameron Archer MD Hospital Course NEURO/Psych: [place] Peripheral neuropathy Depression Chronic low back pain - Currently on propofol/as needed fentanyl drips for sedation/analgesia while intubated. Precedex drip was weaned off is currently not controlling patient -Monitor neuro status. Daily sedation vacation -Ct of head yesterday revealed left basal ganglia calcification of was unremarkable. EEG pending Acetaminophen for fever Currently on Zoloft 50 mg daily and trazodone 100 mg daily On permanent 100 mg 3 times a day nursing of her tremor. This currently on hold. Renal dose to be 100 mg daily. RESP: Acute hypoxemic respiratory failure ARDS Pneumococcal pneumonia COPD exacerbation [facility] 24// Ventilator bundle Bronchodilator therapy every 4 hours and as needed Spontaneous breathing trials daily. Yesterday, tolerated CPAP 04/17 -Continue with vent support keep sat >92% -09/10 CTA chest - no PE -Continues to be volume overloaded, however pulmonary edema predominantly is noncardiogenic secondary to ARDS -CXR shows interval improvement 09/24 CV: Severe aortic stenosis CHFsystolic NSTEMI -Monitor HR and BP keep MAP>65mmHg -Continue aspirin 81 mg daily, Coreg 6.25mg BID, -Hold Hydralazine 50mg Q8 given borderline pressures. -Echo showed EF 50-55%, mod-severe -Cardiothoracic surgery and cardiology Dr. Dudley is following -[facility] on hold due to resp failure and renal failure- Dr. Dudley. - On pravastatin 40 mg by mouth daily for dyslipidemia GI: -Elevated LFT's..trending down -Hypernatremia- -On Glucerna 1.5@45ml/hr. -Protonix currently twice daily 40 mg for GI prophylaxis -Monitor LFT's ( trending down) -US abdomen: Chronic liver disease. Splenomegaly Mild to moderate ascites Mildly thickened gallbladder wall without evidence of gallstones. No evidence of hydronephrosis. -hypernatremia reasons. On free water 300 every 4 Renal/: Acute kidney injury. Hypernatremia Volume overload -Monitor renal function, I/O's, avoid nephrotoxins. -Renal- Dr. Roa. Renal US: No hydronephrosis -Bumex infusion, 2mg/hr. discontinued today -Hold daily diuril. -Completed diamox 500mg iv q8h x 3 doses for contraction alkalosis this is currently been held -daily BMP ID: Severe Sepsis Pneumococcal pneumonia Pyrexia -Teflaro IV is discontinued today. Cefepime 1 g every 12 hours and vancomycin reinitiated per ID. - Continue, Levaquin oral per ID. Diflucan added 09/23 for persistent fever -Sputum culture positive for strep pneumo on 09/03. All cultures negative.. Influenza negative - Blood cultures pending Blood cultures no growth - HEME: Leukocytosis Normocytic anemia -Monitor CBC, CMP, coags. Hep PLT ab positive, TIGIST negative, Heme is following ENDO: Type 2 diabetes Hypothyroidism -Better glycemic control. continue high scale SSI, q4h. continue Levemir 35u q12h. Will initiate insulin drip -Prednisone taper -Continue Synthroid 50 mcg daily. TSH: 0.373 PROPH: -Bilateral lower extremity SCDs. Protonix for GI prophylaxis. SQH. LINES: -Utilize peripheral IVs, Critical Care: The total critical care time was 35 minutes. Time to perform other separately billable procedures was not included in the critical care time. Decision was made to withdraw care. Patient passed at 1340. Wyatt Schneider MD Sep 24, 2016 14:59
[2016-09-24] MEDS ORDERED: RESP: ALBUTEROL 2.5 MG/IPRATROPIUM 0.5 MG NEB (SCH) NEB (16:00)
--- NOTE | 2016-09-24 17:56 | HHI.HCPN ---
Reason for visit a. To assist with evaluation and management of symptoms including: encephalopathy; dyspnea; anxiety; depression. b. To assist medical decision maker(s) with: better understanding of current medical conditions; weighing benefits/burdens of medical treatment options; making medical treatment decisions. . Subjective/Interval History Patient has had a dramatic change. He was agitated overnight and Precedex was started. He had tolerated CPAP on 09/[address] him back on full vent support. Today he became tachypnic (RR in the 40s) and he became hypotensive. He required pressor support. He was given fluid boluses. Temp to 103.6 at 0400 this AM. WBC up to 12.1. Creatine went up to 2.99. CT of head from 09/22 showed no evidence of infarct, hemorrhage, mass, or edema. EEG done this AM shows some questionable seizure activity. Met with Dr. Schneider who felt condition was ominous. As family had already been considering whether or not the patient would want further aggressive care , I was asked to update them and have another goals of medical care conversation. . . . Family/friend interactions Spoke with patient's spouse (she is the proxy); son; and daughter in law simultaneously by phone for approximately 15 minutes. I updated them on the patient's current status and the opinion of the cloud services architect. I let them know that his condition had deteriorated dramatically. If he were able to survive, he would definitely need tracheostomy and PEG placement as we discussed. His chances of making it back home to anything close to his prior quality of life were very low. I let them know about the CT scan results, high fever in spite of antibiotics, failing renal status, hypotension, etc. I answered questions. We talked about options going forward including ongoing aggressive care vs. transitioning to comfort oriented care and withdrawing from life support. They wanted some time to talk about with one another and said they would call me back. they called back within the hour. We spoke again. I answered more questions. They opted for "comfort measures only" and withdrawal of life support. They indicated they wanted to be present. . Advance Directives Living Will: Never completed Health Care Surrogate: Never completed Durable Power of Director Of Child Welfare Services: Never completed Advance Directive Specifics Date completed: Never completed. . Health Care Surrogate(s): No written designation of health care surrogate . . Documented care wishes: No written documentation of health care goals/preferences . Significant change in goals: Family has opted to transition to "comfort measures only," and withdrawal of life support. . Objective Vital Signs Date Time Temp Pulse Resp B/P Pulse Ox O2 Delivery O2 Flow Rate FiO2 09/24/16 14:29 Room Air 09/24/16 12:00 45 09/24/16 09:01 45 09/24/16 08:57 94 45 09/24/16 08:29 117 09/24/16 08:27 45 09/24/16 08:00 102.9 119 24 109/57 98 09/24/16 06:00 115 09/24/16 04:00 117 09/24/16 04:00 103.6 117 24 162/67 94 09/24/16 04:00 45 09/24/16 02:00 118 09/24/16 00:27 94 45 09/24/16 00:00 117 09/24/16 00:00 103.4 113 25 156/77 93 09/24/16 00:00 45 09/23/16 22:00 113 09/23/16 21:00 94 45 09/23/16 20:00 50 09/23/16 20:00 119 09/23/16 20:00 103.8 121 24 172/73 93 09/23/16 18:07 98 09/23/16 18:00 111 Intake & Output 09/24/16 09/24/16 07:00 19:00 Intake Total 1227 ml Output Total 2150 ml Balance -923 ml IV Total 556 ml Tube Feeding 551 ml Tube Irrigant 120 ml Output Urine Total 2150 ml # Bowel Movements 1 . Physical Exam CONSTITUTIONAL/GENERAL: This is an adequately nourished patient, intubated, mechanically ventilated, sedated, minimally responsive TUBES/LINES/DRAINS: soft wrist restraints; ortega catheter; OG tube; ET tube; SCDs; peripheral IV SKIN: No jaundice, rashes, or lesions. Ecchymoses on upper extremities. No wounds seen anteriorly. Skin temperature appropriate. Not diaphoretic. EYES: Pupils equal and round. . No scleral icterus. No injection or drainage. Fundi not examined. ENT: Unable to evaluate hearing. Nose without bleeding or purulent drainage. NECK: Trachea midline. CARDIOVASCULAR: Tachycardic with regular rhythm and no gallops, or rubs. 2+ systolic murmur present. No JVD. RESPIRATORY/CHEST: Symmetric, unlabored respirations. Bilateral coarse rhonchi. Breath sounds equal bilaterally. Basilar crackles. No wheezes. GASTROINTESTINAL: Abdomen soft, slightly distended. No hepato-splenomegaly, or palpable masses. No guarding. Bowel sounds hypoactive. GENITOURINARY: Without palpable bladder distension. Ortega catheter in place. MUSCULOSKELETAL: Extremities without clubbing, cyanosis, or edema. No mottling or clubbing. LYMPHATICS: Not examined. NEUROLOGICAL: Not opening his eyes for me today. No spontaneous movements during my visit. Withdraws upper extremities to noxious stimuli. Unable to follow commands PSYCHIATRIC: Unable to evaluate due to level of responsiveness. . Diagnostic Tests Laboratory Laboratory Tests Test 09/21/16 09/22/16 09/22/16 09/22/16 21:01 04:02 07:22 12:35 Sodium Level 138 MEQ/L 142 MEQ/L 140 MEQ/L (136-145) (136-145) (136-145) Potassium Level 2.8 MEQ/L 3.1 MEQ/L 3.1 MEQ/L (3.5-5.1) (3.5-5.1) (3.5-5.1) Chloride Level 89 MEQ/L 92 MEQ/L 92 MEQ/L (98-107) (98-107) (98-107) Carbon Dioxide Level 40.8 MEQ/L 38.6 MEQ/L 40.0 MEQ/L (21.0-32.0) (21.0-32.0) (21.0-32.0) Anion Gap 8 MEQ/L (5-15) 11 MEQ/L (5-15) 8 MEQ/L (5-15) Blood Urea Nitrogen 71 MG/DL (7-18) 67 MG/DL (7-18) 69 MG/DL (7-18) Creatinine 1.55 MG/DL 1.51 MG/DL 1.50 MG/DL (0.60-1.30) (0.60-1.30) (0.60-1.30) Estimat Glomerular Filtration 45 ML/MIN (>89) 46 ML/MIN (>89) 46 ML/MIN (>89) Rate Random Glucose 259 MG/DL 223 MG/DL 229 MG/DL (74-106) (74-106) (74-106) Calcium Level 8.2 MG/DL 8.5 MG/DL 8.3 MG/DL (8.5-10.1) (8.5-10.1) (8.5-10.1) Magnesium Level 2.6 MG/DL 2.6 MG/DL 2.6 MG/DL (1.5-2.5) (1.5-2.5) (1.5-2.5) White Blood Count 6.1 TH/MM3 (4.0-11.0) Red Blood Count 2.81 MIL/MM3 (4.50-5.90) Hemoglobin 7.9 GM/DL (13.0-17.0) Hematocrit 24.0 % (39.0-51.0) Mean Corpuscular Volume 85.3 FL (80.0-100.0) Mean Corpuscular Hemoglobin 28.1 PG (27.0-34.0) Mean Corpuscular Hemoglobin 32.9 % Concent (32.0-36.0) Red Cell Distribution Width 16.5 % (11.6-17.2) Platelet Count 88 TH/MM3 (150-450) Mean Platelet Volume 10.5 FL (7.0-11.0) Procalcitonin 0.20 ng/mL (0.00-0.50) Test 09/22/16 09/22/16 09/23/16 09/23/16 14:05 18:51 00:53 04:18 Sodium Level 141 MEQ/L 140 MEQ/L 141 MEQ/L 142 MEQ/L (136-145) (136-145) (136-145) (136-145) Potassium Level 3.5 MEQ/L 3.4 MEQ/L 3.3 MEQ/L 2.9 MEQ/L (3.5-5.1) (3.5-5.1) (3.5-5.1) (3.5-5.1) Chloride Level 94 MEQ/L 92 MEQ/L 94 MEQ/L 93 MEQ/L (98-107) (98-107) (98-107) (98-107) Carbon Dioxide Level 38.6 MEQ/L 37.5 MEQ/L 36.3 MEQ/L 38.4 MEQ/L (21.0-32.0) (21.0-32.0) (21.0-32.0) (21.0-32.0) Anion Gap 8 MEQ/L (5-15) 11 MEQ/L (5-15) 11 MEQ/L (5-15) 11 MEQ/L (5-15) Blood Urea Nitrogen 65 MG/DL (7-18) 64 MG/DL (7-18) 65 MG/DL (7-18) 66 MG/DL (7- 18) Creatinine 1.48 MG/DL 1.56 MG/DL 1.60 MG/DL 1.63 MG/DL (0.60-1.30) (0.60-1.30) (0.60-1.30) (0.60-1.30) Estimat Glomerular Filtration 47 ML/MIN (>89) 44 ML/MIN (>89) 43 ML/MIN (>89) 42 ML/MIN (>89) Rate Random Glucose 299 MG/DL 380 MG/DL 400 MG/DL 403 MG/DL (74-106) (74-106) (74-106) (74-106) Calcium Level 9.0 MG/DL 9.0 MG/DL 9.0 MG/DL 8.9 MG/DL (8.5-10.1) (8.5-10.1) (8.5-10.1) (8.5-10.1) Magnesium Level 2.5 MG/DL 2.5 MG/DL 2.5 MG/DL 2.6 MG/DL (1.5-2.5) (1.5-2.5) (1.5-2.5) (1.5-2.5) White Blood Count 7.7 TH/MM3 (4.0-11.0) Red Blood Count 3.45 MIL/MM3 (4.50-5.90) Hemoglobin 9.5 GM/DL (13.0-17.0) Hematocrit 29.2 % (39.0-51.0) Mean Corpuscular Volume 84.6 FL (80.0-100.0) Mean Corpuscular Hemoglobin 27.5 PG (27.0-34.0) Mean Corpuscular Hemoglobin 32.5 % Concent (32.0-36.0) Red Cell Distribution Width 16.7 % (11.6-17.2) Platelet Count 124 TH/MM3 (150-450) Mean Platelet Volume 10.3 FL (7.0-11.0) Neutrophils (%) (Auto) 78.5 % (16.0-70.0) Lymphocytes (%) (Auto) 10.9 % (9.0-44.0) Monocytes (%) (Auto) 9.7 % (0.0-8.0) Eosinophils (%) (Auto) 0.6 % (0.0-4.0) Basophils (%) (Auto) 0.3 % (0.0-2.0) Neutrophils # (Auto) 6.1 TH/MM3 (1.8-7.7) Lymphocytes # (Auto) 0.8 TH/MM3 (1.0-4.8) Monocytes # (Auto) 0.7 TH/MM3 (0-0.9) Eosinophils # (Auto) 0.0 TH/MM3 (0-0.4) Basophils # (Auto) 0.0 TH/MM3 (0-0.2) CBC Comment DIFF FINAL Differential Comment Test 09/23/16 09/23/16 09/23/16 09/23/16 08:45 08:59 14:00 18:55 Urine Color YELLOW (YELLW/STRAW) Urine Turbidity CLEAR (CLEAR) Urine pH 6.5 (5.0-8.5) Urine Specific [place] 1.011 (1.002-1.035) Urine Protein TRACE mg/dL (NEG-TRACE) Urine Glucose (UA) NEG mg/dL (NEG) Urine Ketones NEG mg/dL (NEG) Urine Occult Blood MOD (NEG) Urine Nitrite NEG (NEG) Urine Bilirubin NEG (NEG) Urine Urobilinogen LESS THAN 2.0 MG/DL (LESS THAN 2.0) Urine Leukocyte Esterase NEG (NEG) Urine RBC 9 /hpf (0-3) Urine WBC 1 /hpf (0-5) Urine Hyaline Casts 5 /lpf (RARE) Urine Mucus FEW /lpf (OCC) Microscopic Urinalysis Comment CULT NOT INDICATED Sodium Level 143 MEQ/L 144 MEQ/L 145 MEQ/L (136-145) (136-145) (136-145) Potassium Level 3.4 MEQ/L 3.5 MEQ/L 3.5 MEQ/L (3.5-5.1) (3.5-5.1) (3.5-5.1) Chloride Level 96 MEQ/L 96 MEQ/L 96 MEQ/L (98-107) (98-107) (98-107) Carbon Dioxide Level 38.1 MEQ/L 37.4 MEQ/L 39.2 MEQ/L (21.0-32.0) (21.0-32.0) (21.0-32.0) Anion Gap 9 MEQ/L (5-15) 11 MEQ/L (5-15) 10 MEQ/L (5-15) Blood Urea Nitrogen 65 MG/DL (7-18) 63 MG/DL (7-18) 67 MG/DL (7-18) Creatinine 1.63 MG/DL 1.56 MG/DL 1.77 MG/DL (0.60-1.30) (0.60-1.30) (0.60-1.30) Estimat Glomerular Filtration 42 ML/MIN (>89) 44 ML/MIN (>89) 38 ML/MIN (>89) Rate Random Glucose 359 MG/DL 324 MG/DL 336 MG/DL (74-106) (74-106) (74-106) Calcium Level 9.0 MG/DL 9.1 MG/DL 9.4 MG/DL (8.5-10.1) (8.5-10.1) (8.5-10.1) Magnesium Level 2.6 MG/DL 2.5 MG/DL 2.5 MG/DL (1.5-2.5) (1.5-2.5) (1.5-2.5) Total Bilirubin 0.8 MG/DL (0.2-1.0) Aspartate Amino Transf 28 U/L (15-37) (AST/SGOT) Alanine Aminotransferase 24 U/L (12-78) (ALT/SGPT) Alkaline Phosphatase 336 U/L (45-117) Total Protein 7.4 GM/DL (6.4-8.2) Albumin 2.8 GM/DL (3.4-5.0) Total Creatine Kinase 58 U/L (39-308) Lipase 331 U/L (73-393) Test 09/24/16 09/24/16 09/24/16 01:07 04:31 10:22 Sodium Level 147 MEQ/L 148 MEQ/L 148 MEQ/L (136-145) (136-145) (136-145) Potassium Level 4.3 MEQ/L 4.0 MEQ/L 4.1 MEQ/L (3.5-5.1) (3.5-5.1) (3.5-5.1) Chloride Level 100 MEQ/L 99 MEQ/L 100 MEQ/L (98-107) (98-107) (98-107) Carbon Dioxide Level 38.2 MEQ/L 37.0 MEQ/L 36.9 MEQ/L (21.0-32.0) (21.0-32.0) (21.0-32.0) Anion Gap 9 MEQ/L (5-15) 12 MEQ/L (5-15) 11 MEQ/L (5-15) Blood Urea Nitrogen 72 MG/DL (7-18) 80 MG/DL (7-18) 100 MG/DL (7-18) Creatinine 1.95 MG/DL 2.21 MG/DL 2.99 MG/DL (0.60-1.30) (0.60-1.30) (0.60-1.30) Estimat Glomerular Filtration 34 ML/MIN (>89) 30 ML/MIN (>89) 21 ML/MIN (>89) Rate Random Glucose 291 MG/DL 352 MG/DL 341 MG/DL (74-106) (74-106) (74-106) Calcium Level 9.4 MG/DL 9.2 MG/DL 8.9 MG/DL (8.5-10.1) (8.5-10.1) (8.5-10.1) Magnesium Level 2.7 MG/DL 3.0 MG/DL (1.5-2.5) (1.5-2.5) White Blood Count 12.1 TH/MM3 (4.0-11.0) Red Blood Count 4.15 MIL/MM3 (4.50-5.90) Hemoglobin 11.5 GM/DL (13.0-17.0) Hematocrit 35.7 % (39.0-51.0) Mean Corpuscular Volume 86.0 FL (80.0-100.0) Mean Corpuscular Hemoglobin 27.6 PG (27.0-34.0) Mean Corpuscular Hemoglobin 32.1 % Concent (32.0-36.0) Red Cell Distribution Width 17.3 % (11.6-17.2) Platelet Count 215 TH/MM3 (150-450) Mean Platelet Volume 9.5 FL (7.0-11.0) Phosphorus Level 3.8 MG/DL (2.5-4.9) . Result Diagram: 09/24/16 0431 09/24/16 1022 Microbiology Microbiology Date/Time Procedure Status Source Growth 09/22/16 12:20 Gram Stain - Final Complete Sputum Endotracheal 09/22/16 12:20 Sputum Culture - Final Complete Sputum Endotracheal 09/22/16 12:30 Aerobic Blood Culture - Preliminary Resulted Blood Peripheral NO GROWTH IN 2 DAYS 09/22/16 12:30 Anaerobic Blood Culture - Preliminary Resulted Blood Peripheral NO GROWTH IN 2 DAYS 09/22/16 12:35 Aerobic Blood Culture - Preliminary Resulted Blood Peripheral NO GROWTH IN 2 DAYS 09/22/16 12:35 Anaerobic Blood Culture - Preliminary Resulted Blood Peripheral NO GROWTH IN 2 DAYS 09/24/16 10:22 Aerobic Blood Culture Received Blood Peripheral Pending 09/24/16 10:22 Anaerobic Blood Culture Received Blood Peripheral Pending . Imaging Last Impressions Chest X-Ray 09/23/16 0600 Signed Impressions: Service Date/Time: September 03:17 - CONCLUSION: Decreasing bilateral pulmonary parenchymal opacity likely representing decreasing pulmonary edema. Jasson Cobos MD Upper Extremity Ultrasound 09/23/16 0000 Signed Impressions: Service Date/Time: September 08:54 - CONCLUSION: No DVT. Frank Og MD Head CT 09/23/16 0000 Signed Impressions: Service Date/Time: September 17:38 - CONCLUSION: Dense left basal ganglionic calcification. No evidence of acute infarct, hemorrhage, mass or edema. Isidro Oliver MD Lower Extremity Ultrasound 09/11/16 0000 Signed Impressions: Service Date/Time: Sunday, September 11, 2016 12:30 - CONCLUSION: No DVT is identified within either lower extremity. Frank Young MD CT Angiography 09/10/16 0000 Signed Impressions: Service Date/Time: Sunday, September 11, 2016 01:05 - CONCLUSION: No evidence of pulmonary embolism. Frank Hardin MD Abdomen Ultrasound 09/07/16 0000 Signed Impressions: Service Date/Time: Wednesday, September 07, 2016 16:45 - CONCLUSION: Heterogeneous hepatic echotexture consistent with chronic liver disease. Splenomegaly Mild to moderate ascites Mildly thickened gallbladder wall without evidence of gallstones. No evidence of hydronephrosis. Isidro Oliver MD Chest CT 09/05/16 0000 Signed Impressions: Service Date/Time: Monday, September 05, 2016 15:37 - CONCLUSION: 1. Cardiomegaly with diffuse ground glass densities and consolidation likely pulmonary edema and/or pneumonia. 2. Small bilateral pleural effusions. 3. Prominent lymphadenopathy in the mediastinum. Cameron Archer MD . Procedures * Intubation/mechanical ventilation . Assessment and Plan Disease Oriented Problem List: (1) Aortic stenosis (2) COPD exacerbation (3) Pneumonia (4) ARDS (adult respiratory distress syndrome) (5) Thrombocytopenia (6) Congestive heart failure (CHF) (7) PHILIPPE (acute kidney injury) (8) Diabetes (9) Hypertension (10) BPH (benign prostatic hyperplasia) (11) Hypothyroidism (12) PTSD (post-traumatic stress disorder) (13) Blood in stool (14) Normocytic anemia (15) Peripheral neuropathy Symptom Scale: (1) Pain 0-10 Scale: Unable to quantify Comment: Patient has long-standing pain syndromes. He has peripheral neuropathy involving both lower extremities. He also has osteoarthritis involving most joints but particularly bothersome in the hands and feet. Normally, he would not use opiate analgesics for these pains. Additional causes of pain here in the hospital might include orotracheal tube; orogastric tube; Ortega catheter; prolonged bedbound status; soft wrist restraints. Pain has mostly been controlled with a fentanyl drip. . (2) Dyspnea 0-10 Scale: Unable to quantify Comment: Patient has long-standing dyspnea on exertion. However, he has never been on home oxygen and has never used metered dose inhalers or nebulizers. Currently, dyspnea is being managed via the ventilator. . (3) Encephalopathy 0-10 Scale: Unable to quantify Comment: Minimally responsive today. . (4) Anxiety 0-10 Scale: Unable to quantify Comment: Attributed to the patient's PTSD. Per family, not adequately managed in spite of multiple psychoactive medications. . (5) Depression 0-10 Scale: Unable to quantify Comment: Attributed to the patient's PTSD. Per family, not adequately managed in spite of multiple psychoactive medications. . Pertinent Non-Medical Issues Psychosocial: Well supported by and his son and [id number] who live locally. Daughter in [place] Spiritual: Lapsed Holiness. Legal: No advance directives. Spouse is legal proxy. Ethical issues impacting care: Currently incapacitated to make his own health care decisions. . Important Contacts * Criss Muse (spouse) [phone] . Prognosis The patient has underlying aortic stenosis, diabetes, and COPD. Though he was taking care of most of his ADLs, he was quite sedentary prior to this hospitalization. It is unclear if worsening aortic stenosis versus COPD exacerbation might have triggered this hospitalization. Regardless, patient is now intubated, mechanically ventilated, and in the medical intensive care unit. In spite of 12 days on mechanical ventilation he has not shown signs of significant improvement. He continues to spike fevers. He has an acute kidney injury which is growing worse. He remains quite encephalopathic. On top of this, family paints a picture of a gentleman who is unlikely to participate in rehabilitation or follow physician's orders which significantly diminishes his chances of returning to a home setting should he survive the hospitalization. On 09/24/16 the patient had significant deterioration with tachypnea, hypotension, temperature over 103 and a bump in creatinine. Chances of survival and meaningful recovery became much less. Family was informed and are opting for transition to comfort measures only and withdrawal of life support. . . Code Status: No Code Plan == Code Status: NO CODE == Decision making: Patient is currently incapacitated to make his own health care decisions. He will not be regaining capacity. is health care proxy. == Goals of medical treatment: Given his significant deterioration in 09/24/16 , family is now asking to transition to "comfort measures only," and withdrawal of life support == After conferring with Dr. Schneider regarding patient's current status and prognosis, the following took place... * Spoke with family by phone as noted above. * Met with family upon arrival to provide anticipatory guidance regarding withdrawal of life support and what to expect. * All for the presence of clergy and arrange for a acting instructor to meet family * Per Dr. Millan's request, I wrote orders to address pain/dyspnea/anxiety during and after withdrawal of life support. These orders were reviewed with the primary nurse. * Appropriate exhibits were signed and witnessed. * Patient was visited again post withdrawal to assess comfort and adequacy of orders Patient is critically ill with multiorgan failure. He required multiple medication orders and prolonged conversations with family members. Total critical care time was over 60 minutes none of which was concurrent with the time spent by the cloud services architect. . == Pain: Patient has been controlled well with a fentanyl drip. No further recommendations at this time. == Dyspnea: Dyspnea currently being managed with ventilator settings. == Anxiety: Patient has long-standing severe anxiety attributed to PTSD from his [place] days. This may complicate vent weaning. At this point we are trying to get him to wake up. The fear is that once he wakes up but before we are able to wean him from the vent, he will become highly anxious and agitated. We may ultimately need to add a neuroleptic to his antidepressant and may even need to consider Precedex in such a case. == Depression: This is also probably related to his PTSD. He had been on sertraline and trazodone at home prior to admission. == I have spoken with Dr. Marie. Dr. Marie believes it makes sense to continue the current plan of care through the weekend. If the patient does not show signs that he will tolerate weaning at that point, Dr. Marie will likely recommend tracheostomy if family feels the patient would want ongoing aggressive care. If the patient does not wake up, he will also consider CT of the brain. == Palliative care will continue to follow to assist with symptom management and to further clarify goals of medical treatment as the clinical course evolves. . Time Spent Total Floor Time (mins): 70 (Total floor time included chart review; patient examination; discussion with Dr. Schneider; collaboration with primary nurse; above referenced telephone and in person discussions with family; writing orders; documentation of visit.) Face to Face Time (mins): 15 >50% Counseling/Coord of Care: No Attestation To help prompt me to consider important information that might be impacting today's encounter and assessment, information from prior notes written by myself or my colleagues may have been "brought forward" into today's note. My signature on this note, however, is an attestation that I personally performed the exam, history, and/or decision-making noted today, and, unless otherwise indicated, the interactions with patient, family, and staff as well as the review of records all occurred today. I also attest that the listed assessment and stated plan reflect my best clinical judgment today based on the combination of historical information, prior notes, and today's exam/ interactions. When time spent is documented, it refers only to time spent today by the signer, or if indicated, combined time spent today by collaborating physician/nurse practitioner. . Deon Hernandez MD Sep 24, 2016 17:56
[2016-09-24] MEDS ORDERED: CHLORHEXIDINE 0.12% (ORAL KIT) 15 ML CUP MT SCH (20:00)
[2016-09-25] MEDS ORDERED: PRIMIDONE 50 MG TAB PO SCH (09:00)
--- NOTE | 2016-09-25 11:41 | MG ---
cc: ROYCE PERALTA MD Lab No: [id number] Date:09/24/2016 Age: 71 Sex: M Race: DATE OF : 1945 HISTORY: 71-year-old intubated on fentanyl, Diprivan. History of dyspnea, hypokinemia, hypotension. Significant electrical artifact noted in all channels flat line appearance at times, at other times there appeared to be slight questionable delta activity. Episodes of upper body twitching without any epileptic correlation. Single EKG showing sinus rhythm. INTERPRETATION Very severe encephalopathy with flat line type of appearance and portions of EEG recording. Appendicular twitching movements without any epileptic correlation. Clinical correlation. Royce Peralta MD MG/ /10:39 AM /11:38 AM
== END 2016-09-24 14:40 | disposition expired | DRG 870 ==
LOC: NEPC 11:01 → NEDA 13:13 → HCIS 15:27 → HIME 09-04 09:25
PROVIDERS: ADMIT Family Medicine; ATTEND Family Medicine
PROC: 5A09557 Assistance with Respiratory Ventilation, Greater than 96 Consecutive Hours, Continuous Positive Airway Pressure (ICD-10-PCS; 2016-09-04)
PROC: 0BH17EZ Insertion of Endotracheal Airway into Trachea, Via Natural or Artificial Opening (ICD-10-PCS; principal; 2016-09-12)
PROC: 5A1955Z Respiratory Ventilation, Greater than 96 Consecutive Hours (ICD-10-PCS; 2016-09-12)
DX: A41.9 Sepsis, unspecified organism (principal); I21.4 Non-ST elevation (NSTEMI) myocardial infarction; J13 Pneumonia due to Streptococcus pneumoniae; N17.0 Acute kidney failure with tubular necrosis; G93.40 Encephalopathy, unspecified; I50.43 Acute on chronic combined systolic (congestive) and diastolic (congestive) heart failure; J96.01 Acute respiratory failure with hypoxia; J96.02 Acute respiratory failure with hypercapnia; J80 Acute respiratory distress syndrome; E87.0 Hyperosmolality and hypernatremia; E87.2 Acidosis; I13.0 Hypertensive heart and chronic kidney disease with heart failure and stage 1 through stage 4 chronic kidney disease, or unspecified chronic kidney disease; J44.0 Chronic obstructive pulmonary disease with (acute) lower respiratory infection; J44.1 Chronic obstructive pulmonary disease with (acute) exacerbation; E87.1 Hypo-osmolality and hyponatremia; I48.92 Unspecified atrial flutter; I47.1 Supraventricular tachycardia; D69.6 Thrombocytopenia, unspecified; R65.20 Severe sepsis without septic shock; E86.0 Dehydration; I35.0 Nonrheumatic aortic (valve) stenosis; E87.5 Hyperkalemia; E87.6 Hypokalemia; E11.22 Type 2 diabetes mellitus with diabetic chronic kidney disease; E11.42 Type 2 diabetes mellitus with diabetic polyneuropathy; N40.0 Benign prostatic hyperplasia without lower urinary tract symptoms; N18.9 Chronic kidney disease, unspecified; D64.9 Anemia, unspecified; E03.9 Hypothyroidism, unspecified; E11.65 Type 2 diabetes mellitus with hyperglycemia; E78.5 Hyperlipidemia, unspecified; I48.0 Paroxysmal atrial fibrillation; Z16.11 Resistance to penicillins; K76.9 Liver disease, unspecified; Z66 Do not resuscitate; F32.9 Major depressive disorder, single episode, unspecified; Z79.4 Long term (current) use of insulin; Z87.891 Personal history of nicotine dependence
CPT/HCPCS: 31500; 36600; 70450; 71010; 71020; 71250; 71275; 76700; 76937; 80048; 80053; 81001; 82010; 82272; 82550; 82552; 82570; 82805; 82947; 82948; 83010; 83605; 83615; 83690; 83735; 83880; 83930; 83935; 84100; 84132; 84145; 84300; 84443; 84484; 84550; 85007; 85025; 85027; 85379; 85384; 85610; 85730; 86022; 86317; 86703; 86705; 86803; 86880; 87040; 87070; 87086; 87186; 87205; 87449; 87641; 87804; 93005; 93306; 93970; 93971; 94002; 94003; 94150; 94640; 94664; 94667; 94668; 95819; 96361; 96365; 96375; C9113; C9399; J0131; J0282; J0360; J0456; J0692; J0696; J0712; J1120; J1205; J1450; J1630; J1644; J1815; J1940; J1956; J2060; J2270; J2370; J2543; J2920; J2930; J3010; J3370; J3480; J7030; J7040; J7050; J7060; J7512; J7613; P9047; Q9967